=== PATIENT | female | born 1940 | race Caucasian/White ===

== ENCOUNTER 2017-09-14 10:58 | Inpatient (IN) | payer OTHER ==
[~2017-09-14] VITALS: Ht 149.9 cm; Wt 90.7 kg
--- NOTE | 2017-09-14 11:28 | ED DYSPNEA/ASTHMA COMPLAINT ---
See Addendum History of Present Illness General Chief Complaint: Dyspnea (COPD, CHF, Other) Stated Complaint: SOB,GENERAL WEAKNESS Source: patient, family (DAUGHTER) Exam Limitations: no limitations Vital Signs & Intake/Output Vital Signs & Intake/Output Vital Signs Date Time Temp Pulse Resp B/P B/P Pulse O2 O2 Flow FiO2 Mean Ox Delivery Rate 09/17 0620 99.8 103 18 156/90 96 Room Air 09/16 2214 99.5 94 18 138/60 95 Room Air 09/16 1021 70 142/58 ED Intake and Output 09/17 0000 09/16 1200 Intake Total 1000 1900 Output Total Balance 1000 1900 Intake, IV 400 Intake, Oral 1000 1500 Number 5 8 Bowel Movements Patient 185 lb 185 lb Weight Allergies Coded Allergies: shellfish derived (Intermediate, G.I. DISTRESS FROM SCALLOPS 09/14/17) Reconcile Medications Atorvastatin Calcium 40 MG TABLET 1 TAB PO DAILY CHOLESTROL (Reported) Empagliflozin (Jardiance) 10 MG TABLET 1 TAB PO EOD DM (Reported) Glimepiride 4 MG TABLET 1 TAB PO DAILY DM (Reported) Levothyroxine Sodium 25 MCG TABLET 1 TAB PO DAILY THYROID (Reported) Quinapril HCl 20 MG TABLET 1 TAB PO DAILY HTN (Reported) Sitagliptin Phos/Metformin HCl (Janumet 50-1,000 MG Tablet) 50 MG-1,000 MG TABLET 1 TAB PO BID DM (Reported) Triage Note: C/O SOB, WEAKNESS AND DIFFICULTY WALKING X 1 MONTH. DENIES PAIN. SENT BY DR. CHEN FOR EVALUATION. Triage Nurses Notes Reviewed? yes Onset: Gradual Duration: week(s): (1 MONTH), changing over time, continues in ED, getting worse Timing: recent history Severity: moderate, severe Activities at Onset: activity Prior Episodes/Possible Cause: no prior episodes Modifying Factors: Improves With: rest. Worsens With: movement. Associated Symptoms: weakness LMP (ages 10-50): post menopausal : No Patient currently breastfeeds: No HPI: 76-year-old female past medical history of diabetes hypothyroidism presents for evaluation of weakness, diarrhea, abdominal pain and shortness of breath. Patient states symptoms started about one month ago and have been persistent. She reports that she feels very short of breath on exertion and gets better with rest but does not go away completely. She also reports for a watery diarrhea decreased appetite. She has noted some pink material in her stools. No melena. No blood thinners. She reports that the left side of her abdomen appears swollen and tender. She denies any chest pain, hemoptysis, lower extremity edema. No fevers. (Roddy Murguia) Past History Travel History Traveled to [place] past 21 day No Medical History Any Pertinent Medical History? see below for history Cardiovascular: HEART MURMUR Endocrine: diabetes Surgical History Surgical History: non-contributory Psychosocial History Who do you live with Patient/Self Services at Home None What is your primary language Eritrean Tobacco Use: Never used ETOH Use: denies use Family History Hx Contributory? No (Roddy Murguia) Review of Systems Review of Systems Constitutional: Reports: malaise, weakness. EENTM: Reports: no symptoms. Respiratory: Reports: see HPI, short of breath. Cardiovascular: Reports: no symptoms. GI: Reports: see HPI, abdominal pain, diarrhea, nausea, bloody stool. Genitourinary: Reports: no symptoms. Musculoskeletal: Reports: no symptoms. Skin: Reports: no symptoms. Neurological/Psychological: Reports: no symptoms. Hematologic/Endocrine: Reports: no symptoms. Immunologic/Allergic: Reports: no symptoms. All Other Systems: Reviewed and Negative (Roddy Murguia) Physical Exam Physical Exam General Appearance: well developed/nourished, no apparent distress, alert, awake Head: atraumatic, normal appearance Eyes: Bilateral: normal appearance, PERRL, EOMI. Ears, Nose, Throat: normal pharynx, normal ENT inspection, hearing grossly normal Neck: normal inspection, supple, full range of motion, NO JVD Respiratory: normal breath sounds, chest non-tender, no respiratory distress, lungs clear Cardiovascular: regular rate/rhythm, normal peripheral pulses Peripheral Pulses: 2+ radial (R), 2+ radial (L) Gastrointestinal: normal bowel sounds, soft, no organomegaly, distention, tenderness (LLQ) Extremities: normal inspection, normal range of motion, no edema Neurologic/Psych: no motor/sensory deficits, awake, alert, oriented x 3, normal gait, normal mood/affect Skin: intact, normal color, warm/dry Lymphatic: no anterior cervical guille Core Measures ACS in differential dx? No CVA/TIA Diagnosis No Sepsis Present: No Sepsis Focused Exam Completed? No (Roddy Murguia) Progress Differential Diagnosis: asthma, AMI, bronchitis, CHF, COPD, pulmonary embolism, pneumonia, pneumothorax, rib fracture, DIVERTICULITIS, CHOLECYSTITIS, CHOLANGITIS Plan of Care: Orders Procedure Date/time Status CBC WITHOUT DIFFERENTIAL 09/17 06 Active BASIC ELECTROLYTES PLUS BUN&CR 09/17 0600 Active Nursing Misc 09/17 UNK Active Full Liquid Diet 09/16 D Active PATHOLOGY SPECIMEN 09/16 1055 Complete PT Evaluate & Treat 09/16 UNK Active Therapeutic Activities 09/16 UNK Complete PT EVAL LOW COMPLEX 20 MIN 09/16 UNK Complete Lab Add-on Test 09/16 UNK Active MISSING MEDICATION FORM 09/16 UNK Active Current Medications Sig/Rose Start time Last Medication Dose Stop Time Status Admin Levothyroxine Sodium 0.025 MG DAILY 09/15 1000 AC 09/16 (Synthroid) 1021 Lisinopril 5 MG DAILY 09/15 1000 AC 09/16 (Prinivil) 1021 Insulin Aspart 0 TIDAC 09/15 0800 AC 09/16 (NovoLOG) 1756 Heparin Sodium 5,000 UNIT Q8 09/14 2200 AC 09/17 (Porcine) 0539 Sodium Chloride 1,000 ML Q20H 09/14 2045 AC 09/16 (Normal Saline 0.9%) 1311 Laboratory Tests 09/17/17 0655: Sodium Pending, Potassium Pending, Chloride Pending, Carbon Dioxide Pending, Anion Gap Pending, BUN Pending, Creatinine Pending, BUN/Creatinine Ratio Pending , CBC w Diff Pending, WBC Pending, RBC Pending, Hgb Pending, Hct Pending, MCV Pending, MCH Pending, MCHC Pending, RDW Pending, Plt Count Pending, MPV Pending Patient seen and evaluated. She currently is tachycardic to the 1 teens. Blood pressure is stable. She has some left lower quadrant tenderness and distention on exam. She reports some occasional bloody diarrhea and shortness of breath on exertion. EKG shows sinus tachycardia. Blood work was obtained and shows an elevated white blood cell count of lactic acidosis. Her d-dimer is also elevated. CHEST x-ray showed signs of multiple lung nodules. A CTA of the chest abdomen and pelvis was ordered. Patient will likely require admission. Fluids ordered. Patient declines any pain medicine at this time. CTA of the chest abdomen and pelvis shows diffuse metastatic lesions in the bilateral lungs and liver. The source is unclear however suspect colorectal etiology due to microcytic anemia. Patient has never had a colonoscopy. At this point there is not a source of infection the only thing we have left is a urinalysis which is pending. Ultrasound is negative for DVT. Patient will require admission to the hospital for further evaluation and treatment of leukocytosis and lactic acidosis. She also need to see oncology. She is very weak and unable to eat or drink. Premature discharge will result in poor health. She will not do well as an outpatient. She will require IV fluids, serial labs, oncology consult, GI consult, colonoscopy physical therapy and case management. Case discussed with Dr. Burks she agrees. Patient admitted to general medicine. Diagnostic Imaging: Viewed by Me: Radiology Read, CT Scan. Discussed w/RAD: Radiology Read, CT Scan. Radiology Impression: PATIENT: MOHAMUD KUMARI PRESENT AGE: 76 PATIENT ACCOUNT NO: [id number] : 42 LOCATION: [facility] ORDERING PHYSICIAN: Roddy RACHEL SERVICE DATE: 09/14/17 EXAM TYPE: RAD - XRY-PORTABLE CHEST XRAY XR PORTABLE CHEST CLINICAL INFORMATION: Shortness of breath and weakness. COMPARISON: Chest x-ray 12/05/2010. TECHNIQUE: Portable frontal view of the chest was obtained. FINDINGS: There is a new 1.8 cm nodule within the right lung at the level of the right eighth rib and there are multiple smaller nodules just above this dominant nodule within the right lung measuring up to 1.3 cm in size. There are multiple new nodules within the left lung, the largest measuring up to 1.9 cm at the level of the left posterior fifth and sixth ribs. The lungs are otherwise clear. There is no pneumothorax or pleural effusion. Cardiac silhouette size is normal. There are no acute osseous findings. IMPRESSION: Multiple large pulmonary nodules bilaterally for which a contrast enhanced CT of the chest is recommended for further assessment. DICTATED BY: Shan Diez MD DATE/TIME DICTATED:09/14/171209 NETWORK PROJECT MANAGER:ENMANUEL DATE/TIME TRANSCRIBED:09/14/171209 CONFIDENTIAL, DO NOT COPY WITHOUT APPROPRIATE AUTHORIZATION., PATIENT: MOHAMUD KUMARI PRESENT AGE: 76 PATIENT ACCOUNT NO: [id number] : LOCATION: [facility] ORDERING PHYSICIAN: Roddy RACHEL SERVICE DATE: EXAM TYPE: US - US-DUPLEX VENOUS EXTREM UNI EXAMINATION: US TRIPLEX LOWER EXTREMITY, LEFT CLINICAL INFORMATION: 76-year-old female patient with left lower extremity swelling. COMPARISON: None TECHNIQUE: Color-flow triplex imaging with spectral analysis and compression Doppler were performed on the lower extremity. FINDINGS: Respiratory variation, normal compression and augmented flow are noted throughout the lower extremity. The visualized common femoral vein, superficial femoral vein, profunda femoral vein, popliteal vein and midcalf peroneal and posterior tibial venous segments show no evidence of deep venous thrombosis. A very small popliteal cyst measures 1.3 x 0.8 x 1.0 cm. IMPRESSION: Normal triplex scan without evidence of deep venous thrombosis involving the lower extremity. Very small popliteal cyst. DICTATED BY: Edgar Aguilar MD DATE/TIME DICTATED:09/14/171609 NETWORK PROJECT MANAGER:ENMANUEL DATE/ TIME TRANSCRIBED:09/14/171609 CONFIDENTIAL, DO NOT COPY WITHOUT APPROPRIATE AUTHORIZATION. <Electronically signed in Other Vendor System> SIGNED BY: Edgar Aguilar MD 09/14/17 1619 Initial ED EKG: nonspecific ST T wave chg, SINUS TACH RATE 120 (Roddy Murguia) Departure Departure Disposition: STILL A PATIENT Condition: Stable Clinical Impression Primary Impression: Multiple lesions of metastatic malignancy Secondary Impressions: Lactic acidosis Leukocytosis Qualifiers: Leukocytosis type: unspecified Qualified Code: D72.829 - Elevated white blood cell count, unspecified Referrals: Yamilet Mobley APRN (PCP/Family) Departure Forms: Customer Survey General Discharge Information Admission Note Spoke With: Keri Onofre MD Documentation of Exam: Documentation of any treatments & extenuating circumstances including Concerns Regarding Discharge (functional status, medication knowledge or non-compliance, living conditions, etc.) that warrant an admission rather than observation: [ IV fluids, serial labs, oncology consult, GI consult, colonoscopy physical therapy and case management] (Roddy Murguia) PA/PLASTIC FINISHER Co-Sign Statement Statement: ED Attending supervision documentation- [X] I saw and evaluated the patient. I have also reviewed all the pertinent lab results and diagnostic results. I agree with the findings and the plan of care as documented in the PA's/PLASTIC FINISHER's documentation. [X] I have reviewed the ED Record and agree with the PA's/PLASTIC FINISHER's documentation. [] Additions or exceptions (if any) to the PAs/PLASTIC FINISHER's note and plan are summarized below: [] (Vitaliy ALBARADO,Johanna) Critical Care Note Critical Care Note Critical Care Time: non-applicable (John RACHEL,Roddy)
[2017-09-14 11:34] LABS: ABSOLUTE BASOPHIL COUNT 0 /CUMM (0.0-0.2); ABSOLUTE EOSINOPHIL COUNT 0 /CUMM (0.0-0.7); ABSOLUTE GRANULOCYTE CT 14.7 /CUMM (1.4-6.5); ABSOLUTE LYMPH COUNT 2.5 /CUMM (1.2-3.4); ABSOLUTE MONOCYTE COUNT 1.2 /CUMM (0.10-0.60); BASOPHIL % 0.1 % (0.0-2.0); EOSINOPHIL % 0.1 % (0-5); GRANULOCYTE % 79.9 % (42.2-75.2); HEMATOCRIT 30.8 % (37-47); MEAN CORPUSCULAR HGB 22.7 PG (27.0-31.0); MEAN CORPUSCULAR HGB CONC 31.4 G/DL (33.0-37.0); MEAN CORPUSCULAR VOLUME 72.2 FL (81.0-99.0); MEAN PLATELET VOLUME 6.6 FL (7.4-10.4); PLATELET COUNT 504 /CUMM (130-400); RBC DISTRIBUTION WIDTH 20.6 % (11.5-14.5); RED BLOOD CELL CT 4.26 /CUMM (4.20-5.40); WHITE BLOOD CELL COUNT 18.4 /CUMM (4.8-10.8)
[2017-09-14] MEDS ORDERED: LEVOTHYROXINE25 MCG PO (11:43)
[2017-09-14] MEDS ORDERED: ATORVASTATIN CA40 M1 PO (11:43)
[2017-09-14] MEDS ORDERED: JANUMET 50-1,01 EACH PO (11:43)
[2017-09-14] MEDS ORDERED: GLIMEPIRIDE4 M1 PO (11:43)
[2017-09-14] MEDS ORDERED: QUINAPRIL HCL20 M1 PO (11:43)
[2017-09-14] MEDS ORDERED: JARDIANCE10 M1 PO (11:45)
[2017-09-14 11:48] LABS: PT 15.8 SEC (9.4-12.5); PTT 28 SEC (25-37)
--- NOTE | 2017-09-14 12:16 | RADIOLOGY REPORT ---
XR PORTABLE CHEST CLINICAL INFORMATION: Shortness of breath and weakness. COMPARISON: Chest x-ray 12/05/2010. TECHNIQUE: Portable frontal view of the chest was obtained. FINDINGS: There is a new 1.8 cm nodule within the right lung at the level of the right eighth rib and there are multiple smaller nodules just above this dominant nodule within the right lung measuring up to 1.3 cm in size. There are multiple new nodules within the left lung, the largest measuring up to 1.9 cm at the level of the left posterior fifth and sixth ribs. The lungs are otherwise clear. There is no pneumothorax or pleural effusion. Cardiac silhouette size is normal. There are no acute osseous findings. IMPRESSION: Multiple large pulmonary nodules bilaterally for which a contrast enhanced CT of the chest is recommended for further assessment.
--- NOTE | 2017-09-14 16:15 | ULTRASOUND REPORT ---
EXAMINATION: US TRIPLEX LOWER EXTREMITY, LEFT CLINICAL INFORMATION: 76-year-old female patient with left lower extremity swelling. COMPARISON: None TECHNIQUE: Color-flow triplex imaging with spectral analysis and compression Doppler were performed on the lower extremity. FINDINGS: Respiratory variation, normal compression and augmented flow are noted throughout the lower extremity. The visualized common femoral vein, superficial femoral vein, profunda femoral vein, popliteal vein and midcalf peroneal and posterior tibial venous segments show no evidence of deep venous thrombosis. A very small popliteal cyst measures 1.3 x 0.8 x 1.0 cm. IMPRESSION: Normal triplex scan without evidence of deep venous thrombosis involving the lower extremity. Very small popliteal cyst.
--- NOTE | 2017-09-14 17:06 | History & Physical ---
See Addendum Flaquita He MD 09/14/17 5874: General Information and HPI MD Statement: I have seen and personally examined MOHAMUD KUMARI and documented this H& P. The patient is a 76 year old F who presented with a patient stated chief complaint of [generalized weakness]. Source of Information: patient Exam Limitations: no limitations History of Present Illness: 76-year-old female with past medical history of hypertension, hypothyroidism, diabetes, coronary artery disease status post stent in 2006 came with shortness of breath, weakness and difficulty in walking for the past 1 month she was sent to ER by Dr. donahue. Patient was in her usual state of health until a month ago following which she started developing generalized weakness, shortness of breath [for past 2 months], decreased appetite, frequent loose bowel movements with on and off constipation and pink mucous discharge. Patient not able to walk even 1 flight gets shortness of breath easily event during eating. She feels that her shortness of breath gets better when she lies on her left lateral decubitus position. No history of any orthopnea/platypnea/paroxysmal nocturnal nocturnal dyspnea. Patient says that she lost 30-40 pounds in 8-9 months. She didn't receive any medical attention for the same. She was also feeling increased sleepy during the same time. She also at times has bowel incontinence which has been going on for a while. She denies back pain, chest pain, chest pressure, palpitation, weakness, numbness, tingling sensation, sick contacts, fall, loss of consciousness, Nausea, vomiting, dysuria, bladder incontinence, headache, dizziness. Patient lives alone at home and independent at baseline. She never had colonoscopy/EGD in the past. She saw her clarifier operator Dr. Olivarez 4 years ago. Allergies/Medications Allergies: Coded Allergies: shellfish derived (Intermediate, G.I. DISTRESS FROM [place] 09/14/17) Home Med list Atorvastatin Calcium 40 MG TABLET 1 TAB PO DAILY CHOLESTROL (Reported) Empagliflozin (Jardiance) 10 MG TABLET 1 TAB PO EOD DM (Reported) Glimepiride 4 MG TABLET 1 TAB PO DAILY DM (Reported) Levothyroxine Sodium 25 MCG TABLET 1 TAB PO DAILY THYROID (Reported) Quinapril HCl 20 MG TABLET 1 TAB PO DAILY HTN (Reported) Sitagliptin Phos/Metformin HCl (Janumet 50-1,000 MG Tablet) 50 MG-1,000 MG TABLET 1 TAB PO BID DM (Reported) Compliance With Home Meds: GOOD Past History Travel History Traveled to [place] past 21 day No Medical History Cardiovascular: HEART MURMUR Endocrine: diabetes Surgical History Surgical History: non-contributory ECHO Results (as available) EF% 65 Past Family/Social History Family History Relations & Conditions if any FATHER Relation not specified for: FH: heart disease Psychosocial History Where do you live? Home Who Do You Live With? self Services at Home: None Primary Language: Sudanese Smoking Status: Former Smoker ETOH Use: denies use Functional Ability ADLs Independent: dressing, eating, toileting, bathing. Ambulation: independent IADLs Independent: shopping, housework, finances, telephone, medication admin. Review of Systems Review of Systems Constitutional: Reports: weakness. Cardiovascular: Reports: no symptoms. Respiratory: Reports: short of breath. GI: Reports: bloating, constipation, bloody stool, changes in stool. Genitourinary: Reports: no symptoms. Musculoskeletal: Reports: no symptoms. Skin: Reports: no symptoms. Neurological/Psychological: Reports: no symptoms. Hematologic/Endocrine: Reports: no symptoms. Exam & Diagnostic Data Last 24 Hrs of Vital Signs/I&O Vital Signs Date Time Temp Pulse Resp B/P B/P Pulse O2 O2 Flow FiO2 Mean Ox Delivery Rate 09/14 1932 98.8 101 18 122/60 96 09/14 1737 99.1 95 20 189/84 98 Room Air 09/14 1451 97.6 102 18 166/74 97 Room Air 09/14 1137 96 Room Air 09/14 1109 97.6 116 20 134/76 96 Room Air Intake & Output 09/14 1600 09/14 0800 09/14 0000 Intake Total 1100 Output Total 2 Balance 1098 Intake, IV 1100 Output, Stool 1 Output, Urine 1 Patient 150 lb Weight Weight Reported by Patient Measurement Method Physical Exam General Appearance Alert, Oriented X3, Cooperative, No Acute Distress Skin No Rashes, No Breakdown HEENT Atraumatic, PERRLA Neck Supple, No JVD, No thryomegaly Cardiovascular Regular Rate, Normal S1, Normal S2, No Murmurs Lungs Clear to Auscultation Abdomen Soft, No Tenderness Neurological Normal Speech, Strength at 5/5 X4 Ext, Normal Tone, Sensation Intact Extremities No Edema Vascular Normal Pulses Rectal Guiac Negative, rectal tone intact Last 24 Hrs of Labs/Tha: Laboratory Tests 09/14/17 1707: Lactic Acid 1.9 09/14/17 1631: Urine Color YEL, Urine Clarity HAZY H, Urine pH 6.0, Ur Specific [place] <= 1.005, Urine Protein NEG, Urine Ketones NEG, Urine Nitrite NEG, Urine Bilirubin NEG, Urine Urobilinogen 2.0 H, Ur Leukocyte Esterase SMALL H, Ur Microscopic SEDIMENT EXAMINED, Urine RBC 3-5, Urine WBC 5-10 H, Ur Epithelial Cells FEW, Urine Bacteria MANY H, Urine Mucus RARE, Urine Hemoglobin MOD H, Urine Glucose NEG 09/14/17 1122: Anion Gap 13, Estimated GFR > 60, BUN/Creatinine Ratio 22.0, Glucose 196 H, Lactic Acid 4.2 H, Calcium 9.0, Magnesium 1.4 L, Total Bilirubin 1.2, AST 66 H, ALT 25, Alkaline Phosphatase 398 H, Troponin I < 0.01, Total Protein 5.3 L, Albumin 2.6 L, Globulin 2.7, Albumin/Globulin Ratio 1.0 L, TSH &T3 &Free T4 Intrp 2.400, PT 15.8 H, INR 1.44 H, APTT 28, D-Dimer High Sensitivty 1607 H, CBC w Diff MAN DIFF ORDERED, RBC 4.26, MCV 72.2 L, MCH 22.7 L, MCHC 31.4 L, RDW 20.6 H, MPV 6.6 L, Gran % 79.9 H, Lymphocytes % 13.4 L, Monocytes % 6.5, Eosinophils % 0.1, Basophils % 0.1, Absolute Granulocytes 14.7 H, Absolute Lymphocytes 2.5, Absolute Monocytes 1.2 H, Absolute Eosinophils 0, Absolute Basophils 0, Platelet Estimate INCREASED, Hypochromic-Microcytic 2+, Poikilocytosis 2+, Anisocytosis 2+, Microcytic Cells 1+, Ovalocytes 1+, Elliptocytes 1+ Diagnostic Data EKG Results Sinus rhythm heart rate 120 QTC 4:30 normal axis. CXR Results Multiple large pulmonary nodules bilaterally for which a contrast enhanced CT of the chest is recommended for further assessment. Other Results CT abdomen and pelvis 1. No evidence of pneumonia. Numerous, diffuse pulmonary nodules consistent with metastatic disease. 2. No evidence of mediastinal or hilar adenopathy. 3. No evidence of pulmonary embolic disease. 4. Diffuse liver metastases. 5. No evidence of mesenteric ischemia, pneumoperitoneum, or intestinal obstruction. 6. No evidence of active diverticulitis. 7. Trace ascites in the perihepatic space and upper pelvis. 8. Extensive obstipation. An underlying colonic mass cannot be excluded especially in the absence of oral contrast. Colonoscopy may be appropriate to exclude a colonic mass giving the pattern of disease. 9. No evidence of adenopathy in the abdomen and pelvis. 10. Cholelithiasis without evidence cholecystitis 11. Multiple stones in the mid left ureter with proximal hydroureter and hydronephrosis. Nonobstructing calculi in a left lower pole calyx. 12. No adrenal or osseous metastases. Lower Extremity Doppler Normal triplex scan without evidence of deep venous thrombosis involving the lower extremity. Very small popliteal cyst. Assessment/Plan Assessment: 76-year-old female past medical history of diabetes, coronary artery disease status post stent in 2006, hypothyroidism, hypertension, urolithiasis presents for evaluation of weakness, altered bowel habits, shortness of breath. Patient is admitted to general medical floor for further evaluation and management. Admission vitals Temperature 97.6 pulse rate, 116, respiratory rate 20, blood pressure 134/76, 96 on room air. Admission lab W BC 18.4, hemoglobin 9.7, platelet count 504, sodium 132, potassium 3.7, BUNs 11, creatinine 0.5, lactic acid 4.2, calcium 9, magnesium 1.4, AST 66, ALT 25, albumin 2.6, TSH 2.4 Imaging Chest x-ray Multiple large pulmonary nodules bilaterally for which a contrast enhanced CT of the chest is recommended for further assessment. Doppler ultrasound Normal triplex scan without evidence of deep venous thrombosis involving the lower extremity. Very small popliteal cyst. Echocardiogram 2010 ejection fraction 60-65% ED treatment Normal saline bolus thousand ML 1 Problem list-Tachycardia, leukocytosis, anemia, pulmonary nodule, hyponatremia, lactic acidosis, hypomagnesemia. 1.Generalized weakness: Metastatic carcinoma of unknown primary origin - May be CUP Patient came in with generalized weakness, upon admission, she was tachycardic, hyponatremia/hypomagnesemia, lactic acidosis which corrected upon IV fluids, chronic microcytic anemia. Her lactic acidosis can be secondary due to dehydration given her poor by mouth intake. Patient has history of weight loss , decreased appetite with generalized weakness, altered bowel habits with shortness of breath for the past 2 months and CAT scan finding of liver and pulmonary metastases with unknown primary at present which needs further evaluation by gastroenterology [colonoscopy/EGD] and oncology in a.m. Though patient has leukocytosis there is no obvious source of infection. We will follow her off antibiotics. Her leukocytosis can be reactive. Patient is not aware of for pulmonary/liver nodules. Patient doesn't have any back pain nor any back tenderness highly unlikely for any bone metastasis. Her rectal tone intact. Bilateral breast no mass/no axillary lymphadenopathy/inguinal/cervical. Though searching for a primary site helps in treatment if patient has favorable prognosis, extensive workup for occult primary site does not improve outcome. Measuring CA 19-9, CA 15-3, CEA 125 RARELY [address]. We will place gastroenterology and oncology consult in a.m. to guide us with the treatment. Patient has electrolyte abnormalities secondary to poor by mouth intake and altered bowel movements. We will replace electrolytes as needed. Diabetes- NovoLog sliding scale insulin and Accu-Chek. Patient is on clear liquids in view of possible colonoscopy tomorrow. Patient appears depressed if needed we can involve psychiatry in future. Patient had venous lower extremity ultrasound to rule out DVT of her left leg, which was negative. Code-FULL code Diet-clear liquids DVT prophylaxis-heparin subcutaneous As Ranked By This Provider Problem List: 1. Carcinoma of unknown origin 2. Lactic acidosis 3. Diabetes mellitus 4. CAD S/P STENT Core Measures/Misc (03/13) Acute Coronary Syndrome ACS Diagnosis: No Congestive Heart Failure Congestive Heart Failure Diagnosis No Cerebrovascular Accident CVA/TIA Diagnosis: No VTE (View Protocol) VTE Risk Factors Age>40 No Mechanical VTE Prophylaxis d/t Other No VTE Pharm Prophylaxis d/t Other Sepsis (View protocol) Sepsis Present: No Emelina Chambers MD 09/14/17 1716: Resident Review Statement Resident Statement: examined this patient, discussed with internet sales manager, agreed with internet sales manager, discussed with family Other Findings: Imaging patient is a 76-year-old female presented with chief complaints of shortness of breath, difficulty in walking and generalized weakness since one month. She was sent to [facility] by Dr. donahue for further evaluation and management. Patient is a 76-year-old female past medical history including coronary artery disease status post angioplasty 2000, hypertension, hyperlipidemia, type 2 diabetes, hypothyroidism, history of bladder calculus presented with chief complaints of generalized weakness and shortness of breath since last 2 months and loose stool since last 2 weeks. She did not follow with her PCP since 2 years and also she was noncompliant with her medication. She lives alone and do all daily activity but cannot able to walk up and down stairs and stand for the long-term because of the weakness in the legs. She started having diarrhea since last 2 weeks and sometimes had episodes of incontinence and staining of her clothes. She was also complaining loss of appetite and also feels fullness of her belly, after she ate something. She denies any nausea, difficulty swallowing, fever, chills, chest pain, palpitation. Past medical history - * CAD status post angioplasty in 2000 * Hypertension * hyperlipidemia * Type 2 diabetes * Hypothyroidism -nontoxic multinodular goiter * History of bladder calculus ED course - Vital signs -temperature 97.6, pulse 116, respiratory rate 20, blood pressure pressure 134/76, SPO2 96% on room air. On physical exam -she was conscious, cooperative, was very weak, tired, pale, neck -no JVD, no lymphadenopathy, chest bilateral clear, heart S1-S2 normal, murmur present, abdomen distended, hepatomegaly present, left lower quadrant mass palpable? On rectal exam rectal tone was low, left lower extremity - swelling in the calf. EKG -normal sinus rhythm, heart rate of 120, QTc 430 Blood workup showed -WBC 18.4, hemoglobin 9.7, hematocrit 30.8, platelet count 504, granulocyte 79.9, no band cells, sodium 132, potassium 3.7, chloride 92, anion gap 13, BUN 11, creatinine 0.5, glucose 196, lactic acid 4.2, calcium 9.0, magnesium 1.4, AST 66, ALT 25, alkaline phosphatase 398, troponin less than 0.01 , total protein 5.3, albumin 2.6, globulin 2.7, TSH 2.4, PT/INR 15.8/1.44, APTT 28, d-dimer 1607, urinalysis showed WBC 5-10. Color Doppler for DVT -no evidence of DVT, Chest x-ray -multiple large pulmonary nodule bilaterally for which contrast- enhanced CT scan is recommended. She was given IV fluids Echocardiogram 2010 -ejection fraction 60-65, aortic stenosis, dilated left atrium, mild calcific aortic stenosis. Assessment and plan - Multiple metastasis in the chest and the liver - Unknown primary Patient is having leukocytosis, thrombocytosis, lactic acidosis, high alkaline phosphatase, hypoalbuminemia and on the workup she found to have, multiple metastasis, secondary to unknown primary. * We will place consult for the GI and hematology oncologist * Patient may get possible colonoscopy tomorrow so start her on clear liquid diet. * We will keep a low threshold for the antibiotic Hyponatremia,Hypomagnesemia - * We will watch for regular blood workup * Injection magnesium 1 g IV state * We will recheck the magnesium tomorrow. Tachycardia - * Possibly secondary to the demand or metastasis to the lung Chronic medical condition -multinodular goiter, hypertension, type 2 diabetes - * We will continue levothyroxine, lisinopril * Fingerstick 4 times daily/HS * NovoLog according to the sliding scale Left lower extremity swelling -d-dimer 1607, Doppler -negative for DVT - Ruled out Diet -clear liquid diet for possible colonoscopy tomorrow DVT prophylaxis -heparin 5000 subcutaneous every 8 hours CODE STATUS -full code Keri Onofre MD 09/14/17 1722: Attending MD Review Statement Attending Statement Attending MD Statement: examined this patient, discuss w/resident/PA/CLOTH SECONDS SORTER, agreed w/resident/PA/CLOTH SECONDS SORTER, reviewed EMR data (avail), reviewed images Attending Assessment/Plan: 76-year-old female past medical history of diabetes and hypertension who came in with complaints of weakness, poor by mouth intake and was found to have leukocytosis and lactic acidosis. CT of chest abdomen and pelvis shows metastases to the lungs and liver primary unknown but given this microcytic anemia could be GI primary. Patient has left leg swelling but left leg ultrasound is negative for DVT. ED provider did tell patient of diagnosis and she's aware that she has metastatic disease of unknown primary. She is interested in seeing what oncology has to say. At this point will give her IV fluids, repeat her lactate. Will hold off on antibiotics given no obvious source of infection. Rectal done in the ER and guaiac negative but as stated about does have microcytic anemia. Will hold off on the oral hypoglycemics given the lactic acidosis and use insulin with sliding scale, we can continue the quinapril as long as the blood pressure tolerates and continue her levothyroxine. Put her on DVT prophylaxis.
--- NOTE | 2017-09-14 17:24 | CT SCAN REPORT ---
EXAMINATION: CT ANGIOGRAM OF THE CHEST, ABDOMEN AND PELVIS CLINICAL INFORMATION: 76-year-old patient presenting with shortness of breath, left lateral lower quadrant pain, diarrhea, abdominal distention, and leg weakness. COMPARISON: CT of the abdomen pelvis dated 12/28/2011. TECHNIQUE: Multiple axial images were obtained helically through the chest, abdomen and pelvis following the administration of 95 mL of Optiray 320 intravenously. No oral contrast was administered. Extensive vascular post-processing, including 2-dimensional and 3-dimensional reformatted images were created and reviewed on an independent workstation. FINDINGS: Vascular: The thoracic aorta is normal in caliber without evidence of a dissection flap or penetrating ulcer. There is standard conventional 3 vessel arch branching anatomy. The arch vessels are widely patent. The pulmonary arteries are well-opacified. No intraluminal filling defect or cut off is seen to suggest pulmonary embolic disease. The abdominal aorta and iliac arteries also normal in caliber without evidence of a dissection flap. The visceral arteries are patent. There are single renal arteries present bilaterally which are patent. Nonvascular: Numerous ovoid masses are seen diffusely in both lungs ranging in size from 3.5 mm to 1.5 cm consistent with metastatic disease. No pulmonary infiltrates or vascular congestive changes are identified. There is some scattered bullous changes without evidence of emphysema. The tracheobronchial tree is patent. The visualized thyroid gland is unremarkable. There is no evidence of mediastinal or hilar adenopathy. The heart is not enlarged. There is no pericardial or pleural effusion. No supraclavicular or axillary adenopathy seen. There is no evidence of a chest wall mass. The liver is enlarged with numerous ovoid low-attenuation lesions in both lobes consistent with metastatic deposits. There is no dilatation of the biliary ducts. There are multiple small stones in the dependent portion of the gallbladder without evidence of gallbladder wall thickening. There is trace ascites along the inferior margin of the right lobe liver. The adrenal glands are normal in configuration bilaterally. No pancreatic mass, ductal ectasia, inflammatory changes are seen. The spleen is somewhat prominent measuring 13.2 cm in span without evidence of a parenchymal lesion. Both kidneys are normal in size and contour with appropriate enhancement. There is moderate left hydronephrosis and proximal hydroureter. There are several parapelvic cysts on the left side. There are 3 nonobstructing calculi are noted in a left lower pole calyx measuring 5.5, 5, and 7 mm respectively.. There are 3 obstructing tandem calculi in the mid left ureter measuring 6 mm, 4.5 mm, and 8 mm respectively. There is extensive stool throughout the colon without evidence of a discrete mass, dilatation, or wall thickening. There is no evidence of diverticulosis or diverticulitis. There is a normal appendix in the right lower quadrant. There is no dilatation of the small bowel. No mesenteric cake or peritoneal studding is identified. A small amount of fluid is present in the lower abdominal cavity in the region of the uterine fundus. The uterus is anteflexed without evidence of a discrete mass. No pelvic mass is identified. No mesenteric, retroperitoneal, pelvic, or inguinal adenopathy is identified. No abdominal hernia is seen. There is some induration of the skin and stranding of the subcutaneous fat in the lower anterior abdominal wall. 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 No focal osteolytic or osteoblastic changes are appreciated. IMPRESSION: 1. No evidence of pneumonia. Numerous, diffuse pulmonary nodules consistent with metastatic disease. 2. No evidence of mediastinal or hilar adenopathy. 3. No evidence of pulmonary embolic disease. 4. Diffuse liver metastases. 5. No evidence of mesenteric ischemia, pneumoperitoneum, or intestinal obstruction. 6. No evidence of active diverticulitis. 7. Trace ascites in the perihepatic space and upper pelvis. 8. Extensive obstipation. An underlying colonic mass cannot be excluded especially in the absence of oral contrast. Colonoscopy may be appropriate to exclude a colonic mass giving the pattern of disease. 9. No evidence of adenopathy in the abdomen and pelvis. 10. Cholelithiasis without evidence cholecystitis 11. Multiple stones in the mid left ureter with proximal hydroureter and hydronephrosis. Nonobstructing calculi in a left lower pole calyx. 12. No adrenal or osseous metastases.
[2017-09-14 19:32] VITALS: BP 122/60
[2017-09-14 21:26] VITALS: BP 122/60
[2017-09-15 06:25] VITALS: BP 140/64
--- NOTE | 2017-09-15 07:02 | PN- Housestaff ---
Neri ALBARADO,Flaquita 09/15/17 0702: Subjective Follow-up For: Liver and pulmonary metastasis Complaints: weakness Subjective: Patient seen and examined at bedside. She was sitting in her bed comfortably saturating at room air. No overnight events. She complains of weakness. She denies nausea, vomiting, abdominal pain, chest pain, shortness of breath. She is anxious about the further management with colonoscopy Review of Systems Constitutional: Reports: see HPI. Objective Last 24 Hrs of Vital Signs/I&O Vital Signs Date Time Temp Pulse Resp B/P B/P Pulse O2 O2 Flow FiO2 Mean Ox Delivery Rate 09/15 0952 88 138/60 09/15 0625 98.8 89 20 140/64 95 Room Air 09/14 2126 98.8 101 18 122/60 96 09/140 Room Air 09/14 1932 98.8 101 18 122/60 96 09/14 1737 99.1 95 20 189/84 98 Room Air Intake & Output 09/15 1600 09/15 0800 09/15 0000 Intake Total 240 400 390 Output Total 300 251 Balance -60 149 390 Intake, IV 400 150 Intake, Oral 240 240 Number 1 2 2 Bowel Movements Output, Stool 1 Output, Urine 300 250 Patient 187 lb 187 lb Weight Weight Bed scale Measurement Method Physical Exam General Appearance: Alert, Oriented X3, Cooperative, No Acute Distress Skin: No Rashes, No Breakdown Cardiovascular: Regular Rate, Normal S1, Normal S2, No Murmurs Lungs: Clear to Auscultation Abdomen: Soft, No Tenderness Neurological: Normal Speech, Strength at 5/5 X4 Ext, Normal Tone, Sensation Intact Extremities: No Cyanosis, Normal Pulses, bilateral mild pedal edema. Current Medications: Current Medications Sig/Rose Start time Last Medication Dose Route Stop Time Status Admin Bisacodyl 10 MG ONCE ONE 09/15 2100 AC PO 09/15 2100 Bisacodyl 5 MG ONE ONE 09/15 2100 CAN PO 09/15 2100 Bupivacaine HCl 0 .STK-MED ONE 09/15 1408 DC .ROUTE Fentanyl Citrate 0 .STK-MED ONE 09/15 140 DC .ROUTE Heparin Sodium 5,000 UNIT Q8 09/14 2200 AC 09/15 (Porcine) SC 0608 Insulin Aspart 0 TIDAC 09/15 0800 AC SC Levothyroxine Sodium 0.025 MG DAILY 09/15 1000 AC 09/15 PO 0952 Lisinopril 5 MG DAILY 09/15 1000 AC 09/15 PO 0952 Magnesium Sulfate 1 GM ONCE ONE 09/14 2030 DC 09/14 Dextrose/Water 100 ML IV 09/15 0029 2044 Patient Medication 1 ED ONE ONE 09/15 1200 DC Teaching ED 09/15 1201 Polyethylene Glycol 0.5 GAL ONCE ONE 09/16 0400 AC PO 09/16 0401 Polyethylene Glycol 0.5 GAL ONCE ONE 09/15 1700 AC PO 09/15 1701 Sodium Chloride 1,000 ML Q20H 09/14 2045 AC 09/14 IV 204 Sodium Chloride 1,000 ML BOLUS ONE 09/14 1700 DC 09/14 IV 09/14 1759 1720 Last 24 Hrs of Lab/Tha Results Last 24 Hrs of Labs/Mics: Laboratory Tests 09/15/17 0745: Anion Gap 9, Estimated GFR > 60, BUN/Creatinine Ratio 18.0, Magnesium 1.5 L, CBC w Diff NO MAN DIFF REQ, RBC 3.60 L, MCV 73.0 L, MCH 22.9 L, MCHC 31.4 L, RDW 20.5 H, MPV 6.9 L, Gran % 78.8 H, Lymphocytes % 10.4 L, Monocytes % 10.4 H, Eosinophils % 0.2, Basophils % 0.2, Absolute Granulocytes 12.8 H, Absolute Lymphocytes 1.7, Absolute Monocytes 1.7 H, Absolute Eosinophils 0, Absolute Basophils 0 09/14/17 1707: Lactic Acid 1.9 09/14/17 1631: Urine Color YEL, Urine Clarity HAZY H, Urine pH 6.0, Ur Specific [place] <= 1.005, Urine Protein NEG, Urine Ketones NEG, Urine Nitrite NEG, Urine Bilirubin NEG, Urine Urobilinogen 2.0 H, Ur Leukocyte Esterase SMALL H, Ur Microscopic SEDIMENT EXAMINED, Urine RBC 3-5, Urine WBC 5-10 H, Ur Epithelial Cells FEW, Urine Bacteria MANY H, Urine Mucus RARE, Urine Hemoglobin MOD H, Urine Glucose NEG Assessment/Plan Assessment: Assessment and plan - 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 Patient has multiple metastasis to liver and lung. Patient was seen by oncologist who suggested a liver biopsy and colonoscopy to look for primary. GI consult placed. Patient has electrolyte abnormalities due secondary due to dehydration and decreased by mouth intake. We will replete lites as needed. Patient is planned for liver biopsy today. Patient is on clear liquids and will get GoLYTELY today. She is plan for colonoscopy tomorrow. Both the patient and daughter has agreed with the plan. Chronic medical condition -multinodular goiter, hypertension, type 2 diabetes - * We will continue levothyroxine, lisinopril, Fingerstick 4 times daily/HS * NovoLog according to the sliding scale. Diet -clear liquid diet for colonoscopy tomorrow DVT prophylaxis -heparin 5000 subcutaneous every 8 hours CODE STATUS -full code Problem List: 1. Liver mass 2. Pulmonary nodule Pain Ratin Pain Location: none Pain Goal: Remain pain free Pain Plan: tylenol Tomorrow's Labs & Rationales: cbc,bep Roya Conde 09/15/17 1206: Attending MD Review Statement Attending Statement Attending MD Statement: examined this patient, discuss w/resident/PA/HOTEL SERVICE SUPERVISOR, agreed w/resident/PA/HOTEL SERVICE SUPERVISOR, discussed with family, reviewed EMR data (avail), discussed with nursing, discussed with case mgmt, reviewed images, amended to note Attending Assessment/Plan: 76 o/f is admitted with abnornal nodules in liver and lung with h/o weight loss and loss of appetitie concerning for metastatic disease. Hem/onc and GI consulted. Plan for EGD/colonoscopy tommorrow (never had past). Npo past mn. Prep for colon as per GI. Oncology did recommend IR guided biopsy from liver tissue of unknown primary. Patient and family bedside. Plan of care d/wed patient and family member. Agree to management.
--- NOTE | 2017-09-15 08:03 | Cons- Oncology ---
General Information and HPI Consulting Request Date of Consult: 09/15/17 Requested By: Keri Onofre MD Reason for Consult: liver masses, lung mass Source of Information: patient, old records Exam Limitations: no limitations History of Present Illness: Ms. Russo is a 76-year-old female with DM, HTN, hypothyroidism, and CAD s/ p stent in 2006 who presented to the [facility] with severe months of weakness, dyspnea, and difficulty walking due to weakness in the thigh. She has been having symptoms for 2-3 months. It has progressively worsened. Over the last 3-4 weeks, she also noted some blood in the stool. She states the stool is pinkish. She has been having increasing difficulty climbing stairs due to shortness of breath. She also has weight loss of about 20-30 pounds. She has not seen her physician as regularly. She has not had a colonoscopy. She has not seen her water trainer in over 3 years. She has not seen her casualty claim adjuster for over a year. On presentation to the hospital, she was noted to have microcytic anemia, leukocytosis, and thrombocytosis. D-dimer was noted to be elevated. CTA of the chest, abdomen, and pelvis was done and was noted to have numerous, diffuse pulmonary nodules and diffuse liver metastases. US of the lower extremities was negative for DVT. She continues to have fatigue and weakness. She denies any new pain. Allergies/Medications Allergies: Coded Allergies: shellfish derived (Intermediate, G.I. DISTRESS FROM SCALLOPS 09/14/17) Home Med List: Atorvastatin Calcium 40 MG TABLET 1 TAB PO DAILY CHOLESTROL (Reported) Empagliflozin (Jardiance) 10 MG TABLET 1 TAB PO EOD DM (Reported) Glimepiride 4 MG TABLET 1 TAB PO DAILY DM (Reported) Levothyroxine Sodium 25 MCG TABLET 1 TAB PO DAILY THYROID (Reported) Quinapril HCl 20 MG TABLET 1 TAB PO DAILY HTN (Reported) Sitagliptin Phos/Metformin HCl (Janumet 50-1,000 MG Tablet) 50 MG-1,000 MG TABLET 1 TAB PO BID DM (Reported) Current Medications: Current Medications Sig/Rose Start time Last Medication Dose Route Stop Time Status Admin Heparin Sodium 5,000 UNIT Q8 09/14 2200 AC 09/15 (Porcine) SC 0608 Insulin Aspart 0 TIDAC 09/15 0800 AC SC Levothyroxine Sodium 0.025 MG DAILY 09/15 1000 AC PO Lisinopril 5 MG DAILY 09/15 1000 AC PO Magnesium Sulfate 1 GM ONCE ONE 09/14 2030 DC 09/14 Dextrose/Water 100 ML IV 09/15 0029 2044 Sodium Chloride 1,000 ML Q20H 09/14 2045 AC 09/14 IV 2045 Sodium Chloride 1,000 ML BOLUS ONE 09/14 1700 DC 09/14 IV 09/14 1759 1720 Sodium Chloride 1,000 ML BOLUS ONE 09/14 1215 DC 09/14 IV 09/14 1314 1306 Sodium Chloride 1,000 ML BOLUS ONE 09/14 1145 DC 09/14 IV 09/14 1244 1154 Review of Systems Review of Systems Constitutional: Reports: malaise, weakness, unexplained weight loss. Denies: chills, fever. Cardiovascular: Denies: chest pain. Respiratory: Reports: short of breath. Denies: cough, hemoptysis. GI: Reports: abdominal pain, bloody stool. Denies: nausea, vomiting. Genitourinary: Denies: dysuria, hematuria. Musculoskeletal: Denies: back pain, joint pain. Neurological/Psychological: Reports: weakness (in the thighs). Denies: confusion. All Other Systems: Reviewed and Negative Past History Travel History Traveled to [place] past 21 day No Medical History Blood Transfusion Hx: No Cardiovascular: CAD (s/p stents), hypertension, hyperlipidemia, HEART MURMUR Endocrine: diabetes, hypothyroidism, obesity Surgical History Surgical History: non-contributory Family History Relations & Conditions If Any: FATHER Relation not specified for: FH: heart disease Psychosocial History Where Do You Live? Home Who Do You Live With? self Services at Home: None Primary Language: Guatemalan Smoking Status: Former Smoker ETOH Use: denies use Illicit Drug Use: denies illicit drug use Functional Ability ADLs Independent: dressing, eating, toileting, bathing. Ambulation: independent IADLs Independent: shopping, housework, finances, telephone, medication admin. ECHO Results (as available) EF% 65 Exam & Diagnostic Data Vital Signs and I&O Vital Signs Date Time Temp Pulse Resp B/P B/P Pulse O2 O2 Flow FiO2 Mean Ox Delivery Rate 09/15 624 98.8 89 20 140/64 95 Room Air 09/14 2125 98.8 101 18 122/60 96 09/140 Room Air 09/14 1932 98.8 101 18 122/60 96 09/14 1737 99.1 95 20 189/84 98 Room Air 09/14 1451 97.6 102 18 166/74 97 Room Air 09/14 1137 96 Room Air 09/14 1109 97.6 116 20 134/76 96 Room Air Intake & Output 09/15 0800 09/15 0000 09/14 1600 Intake Total 277 402 5527 Output Total 251 2 Balance 690 160 5046 Intake, IV 227 523 7173 Intake, Oral 240 Number 2 2 Bowel Movements Output, Stool 1 1 Output, Urine 250 1 Patient 84.822 kg 84.964 kg 68.039 kg Weight Weight Bed scale Reported by Patient Measurement Method Physical Exam General Appearance: well developed/nourished, no apparent distress, alert, awake , comfortable, obese Head: atraumatic, normal appearance Eyes: Bilateral: PERRL, EOMI. Ears, Nose, Throat: normal pharynx Respiratory: normal breath sounds, chest non-tender, no respiratory distress, quiet respiration Cardiovascular: regular rate/rhythm, murmur Gastrointestinal: normal bowel sounds, soft, non-tender, obese Extremities: normal inspection, no edema Neurologic/Psych: awake, alert, oriented x 3 Skin: intact, warm/dry Lymphatic: no anterior cervical guille Last 48 Hours of Lab Results: Laboratory Tests 09/14 09/14 1707 1631 Chemistry Lactic Acid (0.7 - 2.1 mmol/L) 1.9 Urines Urine Color (YEL,AMB,STR) YEL Urine Clarity (CLEAR) HAZY H Urine pH (5.0 - 8.0) 6.0 Ur Specific [place] (1.001 - 1.035) <= 1.005 Urine Protein (NEG,<30 MG/DL) NEG Urine Ketones (NEG) NEG Urine Nitrite (NEG) NEG Urine Bilirubin (NEG) NEG Urine Urobilinogen (0.1 - 1.0 EU/dl) 2.0 H Ur Leukocyte Esterase (NEG) SMALL H Ur Microscopic SEDIMENT EXAMINED Urine RBC (0 - 5 /HPF) 3-5 Urine WBC (0 - 2 /HPF) 5-10 H Ur Epithelial Cells (NONE,FEW) FEW Urine Bacteria (NEG/NONE) MANY H Urine Mucus (FEW,NONE) RARE Urine Hemoglobin (NEG) MOD H Urine Glucose (N MG/DL) NEG 09/14 1122 Chemistry Sodium (137 - 145 mmol/L) 132 L Potassium (3.5 - 5.1 mmol/L) 3.7 Chloride (98 - 107 mmol/L) 92 L Carbon Dioxide (22 - 30 mmol/L) 27 Anion Gap (5 - 16) 13 BUN (7 - 17 mg/dL) 11 Creatinine (0.5 - 1.0 mg/dL) 0.5 Estimated GFR (>60 ml/min) > 60 BUN/Creatinine Ratio (7 - 25 %) 22.0 Glucose (65 - 99 mg/dL) 196 H Lactic Acid (0.7 - 2.1 mmol/L) 4.2 H Calcium (8.4 - 10.2 mg/dL) 9.0 Magnesium (1.6 - 2.3 mg/dL) 1.4 L Total Bilirubin (0.2 - 1.3 mg/dL) 1.2 AST (14 - 36 U/L) 66 H ALT (9 - 52 U/L) 25 Alkaline Phosphatase (<127 U/L) 398 H Troponin I (< 0.11 ng/ml) < 0.01 Total Protein (6.3 - 8.2 g/dL) 5.3 L Albumin (3.5 - 5.0 g/dL) 2.6 L Globulin (1.9 - 4.2 gm/dL) 2.7 Albumin/Globulin Ratio (1.1 - 2.2 %) 1.0 L TSH &T3 &Free T4 Intrp (0.270 - 4.20 uIU/mL) 2.400 Coagulation PT (9.4 - 12.5 SEC) 15.8 H INR (0.90 - 1.19) 1.44 H APTT (25 - 37 SEC) 28 D-Dimer High Sensitivty (0 - 243 ng/ml) 1607 H Hematology CBC w Diff MAN DIFF ORDERED WBC (4.8 - 10.8 /CUMM) 18.4 H RBC (4.20 - 5.40 /CUMM) 4.26 Hgb (12.0 - 16.0 G/DL) 9.7 L Hct (37 - 47 %) 30.8 L MCV (81.0 - 99.0 FL) 72.2 L MCH (27.0 - 31.0 PG) 22.7 L MCHC (33.0 - 37.0 G/DL) 31.4 L RDW (11.5 - 14.5 %) 20.6 H Plt Count (130 - 400 /CUMM) 504 H MPV (7.4 - 10.4 FL) 6.6 L Gran % (42.2 - 75.2 %) 79.9 H Lymphocytes % (20.5 - 51.1 %) 13.4 L Monocytes % (1.7 - 9.3 %) 6.5 Eosinophils % (0 - 5 %) 0.1 Basophils % (0.0 - 2.0 %) 0.1 Absolute Granulocytes (1.4 - 6.5 /CUMM) 14.7 H Absolute Lymphocytes (1.2 - 3.4 /CUMM) 2.5 Absolute Monocytes (0.10 - 0.60 /CUMM) 1.2 H Absolute Eosinophils (0.0 - 0.7 /CUMM) 0 Absolute Basophils (0.0 - 0.2 /CUMM) 0 Platelet Estimate (ADEQUATE) INCREASED Hypochromic-Microcytic 2+ Poikilocytosis 2+ Anisocytosis 2+ Microcytic Cells 1+ Ovalocytes 1+ Elliptocytes 1+ Imaging/Other Studies: CTA Chest/abdomen/pelvis 09/14/2017: 1. No evidence of pneumonia. Numerous, diffuse pulmonary nodules consistent with metastatic disease. 2. No evidence of mediastinal or hilar adenopathy. 3. No evidence of pulmonary embolic disease. 4. Diffuse liver metastases. 5. No evidence of mesenteric ischemia, pneumoperitoneum, or intestinal obstruction. 6. No evidence of active diverticulitis. 7. Trace ascites in the perihepatic space and upper pelvis. 8. Extensive obstipation. An underlying colonic mass cannot be excluded especially in the absence of oral contrast. Colonoscopy may be appropriate to exclude a colonic mass giving the pattern of disease. 9. No evidence of adenopathy in the abdomen and pelvis. 10. Cholelithiasis without evidence cholecystitis 11. Multiple stones in the mid left ureter with proximal hydroureter and hydronephrosis. Nonobstructing calculi in a left lower pole calyx. 12. No adrenal or osseous metastases. US of the lower extremities 09/14/2017: Normal triplex scan without evidence of deep venous thrombosis involving the lower extremity. Very small popliteal cyst. Assessment/Plan Assessment: Ms. Russo is a 76-year-old female with DM, HTN, hypothyroidism, and CAD s/ p stent in 2006 who presented to the [facility] with severe months of weakness, dyspnea, and difficulty walking due to weakness in the thigh. On presentation, she is noted to have microcytic anemia, leukocytosis, and thrombocytosis. This is concerning for possible iron deficiency. She does not blood in her stool. She should have iron studies checked. She should have GI to evaluate her. Leukocytosis and thrombocytosis are likely reactive. CTA of the chest, abdomen, and pelvis demonstrated liver and lung lesions concerning for metastatic disease. She has never had colonoscopy done. GI evaluation would be helpful in this situation also. She was a previous smoker. Lung primary is less likely given distribution of the lung lesions. She will need liver biopsy to determine etiology. Therapeutic option will depending on pathology. Recommendations: Liver mass with pulmonary nodules: -liver biopsy for diagnosis -GI evaluation for colonoscopy Anemia: -check iron studies -GI evaluation Leukocytosis/thrombocytosis: -check iron studies -monitor for now Problem List: 1. Pulmonary nodule 2. Liver mass 3. Thrombocytosis 4. Anemia 5. Leukocytosis 6. Diabetes mellitus 7. CAD S/P STENT Other Findings/Comments: Please call [phone] with any question or concerns. Consult Acknowledgment - Thank you for your consult request.
--- NOTE | 2017-09-15 08:31 | Admission Certification ---
Admission Certification Certification Statement - As attending physician, I certify that at the time of - admission, based on clinical presentation, severity of - symptoms, need for further diagnostic testing and - therapeutic interventions, and risk of adverse outcomes - without in-hospital treatment, in my clinical assessment, - this patient requires an acute hospital stay for a minimum - of two nights or longer. I have also considered psychsocial - factors such as support system, advanced age, financial - issues, cognitive issues, and failed out-patient treatments, - past re-admission history, safety of patient, and lack of - compliance as applicable. Specific rationale supporting this admission is: Leukocytosis, lactic acidois and new multiple metastasis with unknown primary
[2017-09-15 09:42] LABS: ABSOLUTE BASOPHIL COUNT 0 /CUMM (0.0-0.2); ABSOLUTE EOSINOPHIL COUNT 0 /CUMM (0.0-0.7); ABSOLUTE GRANULOCYTE CT 12.8 /CUMM (1.4-6.5); ABSOLUTE LYMPH COUNT 1.7 /CUMM (1.2-3.4); ABSOLUTE MONOCYTE COUNT 1.7 /CUMM (0.10-0.60); BASOPHIL % 0.2 % (0.0-2.0); EOSINOPHIL % 0.2 % (0-5); GRANULOCYTE % 78.8 % (42.2-75.2); HEMATOCRIT 26.3 % (37-47); MEAN CORPUSCULAR HGB 22.9 PG (27.0-31.0); MEAN CORPUSCULAR HGB CONC 31.4 G/DL (33.0-37.0); MEAN PLATELET VOLUME 6.9 FL (7.4-10.4); PLATELET COUNT 376 /CUMM (130-400); RBC DISTRIBUTION WIDTH 20.5 % (11.5-14.5); WHITE BLOOD CELL COUNT 16.3 /CUMM (4.8-10.8)
--- NOTE | 2017-09-15 12:15 | Cons- Gastroenterology ---
General Information and HPI Consulting Request Date of Consult: 09/15/17 Requested By: Roya Conde MD Reason for Consult: 1. Chronic GI blood loss anemia 2. Alteration in bowel habit 3. Metastatic disease to liver 4. Hematochezia 5. Unintentional weight loss Source of Information: patient Exam Limitations: no limitations History of Present Illness: Ms. Russo is a 76-year-old female with past medical history of diabetes mellitus, coronary artery disease and hypertension. She presented to [facility] ED with increasing weakness and shortness of breath. Over the month prior to admission she had noted as well a change in her bowel habit. She had developed loose stools that were pink-tinged. She had not had any abdominal pain, nausea or vomiting. However, she had developed anorexia andhad lost about 40 pounds. She denies dysphagia or odynophagia. She has never had a colonoscopy or an EGD before. On admission to [facility] she had a CT Scan of the abdomen and pelvis, the results of which are as follows: IMPRESSION: 1. No evidence of pneumonia. Numerous, diffuse pulmonary nodules consistent with metastatic disease. 2. No evidence of mediastinal or hilar adenopathy. 3. No evidence of pulmonary embolic disease. 4. Diffuse liver metastases. 5. No evidence of mesenteric ischemia, pneumoperitoneum, or intestinal obstruction. 6. No evidence of active diverticulitis. 7. Trace ascites in the perihepatic space and upper pelvis. 8. Extensive obstipation. An underlying colonic mass cannot be excluded especially in the absence of oral contrast. Colonoscopy may be appropriate to exclude a colonic mass giving the pattern of disease. 9. No evidence of adenopathy in the abdomen and pelvis. 10. Cholelithiasis without evidence cholecystitis 11. Multiple stones in the mid left ureter with proximal hydroureter and hydronephrosis. Nonobstructing calculi in a left lower pole calyx. 12. No adrenal or osseous metastases. she had an H/H of 9.7/30.8 that dropped to 8.3/26.3 over the first 24 hours of admission. Her MCV was 73 with an RDW of 20.5. She had an alk phos of 398 and a T. Bili of 1.2 and an albumin of 2.6. Her PT/INR was 15.8/1.44. She does have a family history of colon cancer. Her mother of colon cancer at age 53. Allergies/Medications Allergies: Coded Allergies: shellfish derived (Intermediate, G.I. DISTRESS FROM [place] 09/14/17) Home Med List: Atorvastatin Calcium 40 MG TABLET 1 TAB PO DAILY CHOLESTROL (Reported) Empagliflozin (Jardiance) 10 MG TABLET 1 TAB PO EOD DM (Reported) Glimepiride 4 MG TABLET 1 TAB PO DAILY DM (Reported) Levothyroxine Sodium 25 MCG TABLET 1 TAB PO DAILY THYROID (Reported) Quinapril HCl 20 MG TABLET 1 TAB PO DAILY HTN (Reported) Sitagliptin Phos/Metformin HCl (Janumet 50-1,000 MG Tablet) 50 MG-1,000 MG TABLET 1 TAB PO BID DM (Reported) Current Medications: Current Medications Sig/Rose Start time Last Medication Dose Route Stop Time Status Admin Heparin Sodium 5,000 UNIT Q8 09/14 2200 AC 09/15 (Porcine) SC 0608 Insulin Aspart 0 TIDAC 09/15 0800 AC SC Levothyroxine Sodium 0.025 MG DAILY 09/15 1000 AC 09/15 PO 0952 Lisinopril 5 MG DAILY 09/15 1000 AC 09/15 PO 0952 Magnesium Sulfate 1 GM ONCE ONE 09/14 2030 DC 09/14 Dextrose/Water 100 ML IV 09/15 0029 2044 Patient Medication 1 ED ONE ONE 09/15 1200 DC Teaching ED 09/15 1201 Sodium Chloride 1,000 ML Q20H 09/14 2045 AC 09/14 IV 2045 Sodium Chloride 1,000 ML BOLUS ONE 09/14 1700 DC 09/14 IV 09/14 1759 1720 Sodium Chloride 1,000 ML BOLUS ONE 09/14 1215 DC 09/14 IV 09/14 1314 1306 Sodium Chloride 1,000 ML BOLUS ONE 09/14 1145 DC 09/14 IV 09/14 1244 1154 Past History Travel History Traveled to [place] past 21 day No Medical History Blood Transfusion Hx: No Cardiovascular: CAD (s/p stents), hypertension, hyperlipidemia, HEART MURMUR Endocrine: diabetes, hypothyroidism, obesity Surgical History Surgical History: non-contributory Family History Relations & Conditions If Any: FATHER Relation not specified for: FH: heart disease Psychosocial History Where Do You Live? Home Who Do You Live With? self Services at Home: None Primary Language: Czech Smoking Status: Former Smoker ETOH Use: denies use Illicit Drug Use: denies illicit drug use Functional Ability ADLs Independent: dressing, eating, toileting, bathing. Ambulation: independent IADLs Independent: shopping, housework, finances, telephone, medication admin. ECHO Results (as available) EF% 65 Exam & Diagnostic Data Vital Signs and I&O Vital Signs Date Time Temp Pulse Resp B/P B/P Pulse O2 O2 Flow FiO2 Mean Ox Delivery Rate 09/15 0952 88 138/60 09/15 0625 98.8 89 20 140/64 95 Room Air 09/14 2126 98.8 101 18 122/60 96 09/14 2050 Room Air 09/14 1932 98.8 101 18 122/60 96 09/14 1737 99.1 95 20 189/84 98 Room Air 09/14 1451 97.6 102 18 166/74 97 Room Air Intake & Output 09/15 1600 09/15 0400 09/14 1600 09/14 0400 09/13 1600 09/13 0400 Intake Total 131 489 4012 Output Total 250 1 2 Balance 712 526 3476 Intake, IV 084 397 7368 Intake, Oral 240 Number 2 2 Bowel Movements Output, Stool 1 1 Output, Urine 250 1 Patient 187 lb 187 lb 150 lb Weight Weight Bed scale Reported by Patient Measurement Method Physical Exam General Appearance: well developed/nourished, alert, awake Head: atraumatic, normal appearance Eyes: Bilateral: normal appearance. Ears, Nose, Throat: hearing grossly normal Neck: normal inspection, supple, full range of motion Respiratory: normal breath sounds, chest non-tender, no respiratory distress, lungs clear Cardiovascular: regular rate/rhythm, II/ Blowing holosystolic murmur Gastrointestinal: normal bowel sounds, soft, non-tender, no organomegaly Extremities: normal inspection, no edema Neurologic/Psych: awake, alert, oriented x 3, normal mood/affect Cranial Nerves: Cranial Nerves II-XII grossly intact Skin: intact, warm/dry Results Pertinent Lab Results: Laboratory Tests 09/15 09/14 0745 1707 Chemistry Sodium (137 - 145 mmol/L) 133 L Potassium (3.5 - 5.1 mmol/L) 3.3 L Chloride (98 - 107 mmol/L) 98 Carbon Dioxide (22 - 30 mmol/L) 27 Anion Gap (5 - 16) 9 BUN (7 - 17 mg/dL) 9 Creatinine (0.5 - 1.0 mg/dL) 0.5 Estimated GFR (>60 ml/min) > 60 BUN/Creatinine Ratio (7 - 25 %) 18.0 Lactic Acid (0.7 - 2.1 mmol/L) 1.9 Magnesium (1.6 - 2.3 mg/dL) 1.5 L Hematology CBC w Diff NO MAN DIFF REQ WBC (4.8 - 10.8 /CUMM) 16.3 H RBC (4.20 - 5.40 /CUMM) 3.60 L Hgb (12.0 - 16.0 G/DL) 8.3 L Hct (37 - 47 %) 26.3 L MCV (81.0 - 99.0 FL) 73.0 L MCH (27.0 - 31.0 PG) 22.9 L MCHC (33.0 - 37.0 G/DL) 31.4 L RDW (11.5 - 14.5 %) 20.5 H Plt Count (130 - 400 /CUMM) 376 MPV (7.4 - 10.4 FL) 6.9 L Gran % (42.2 - 75.2 %) 78.8 H Lymphocytes % (20.5 - 51.1 %) 10.4 L Monocytes % (1.7 - 9.3 %) 10.4 H Eosinophils % (0 - 5 %) 0.2 Basophils % (0.0 - 2.0 %) 0.2 Absolute Granulocytes (1.4 - 6.5 /CUMM) 12.8 H Absolute Lymphocytes (1.2 - 3.4 /CUMM) 1.7 Absolute Monocytes (0.10 - 0.60 /CUMM) 1.7 H Absolute Eosinophils (0.0 - 0.7 /CUMM) 0 Absolute Basophils (0.0 - 0.2 /CUMM) 0 09/14 1631 Urines Urine Color (YEL,AMB,STR) YEL Urine Clarity (CLEAR) HAZY H Urine pH (5.0 - 8.0) 6.0 Ur Specific [place] (1.001 - 1.035) <= 1.005 Urine Protein (NEG,<30 MG/DL) NEG Urine Ketones (NEG) NEG Urine Nitrite (NEG) NEG Urine Bilirubin (NEG) NEG Urine Urobilinogen (0.1 - 1.0 EU/dl) 2.0 H Ur Leukocyte Esterase (NEG) SMALL H Ur Microscopic SEDIMENT EXAMINED Urine RBC (0 - 5 /HPF) 3-5 Urine WBC (0 - 2 /HPF) 5-10 H Ur Epithelial Cells (NONE,FEW) FEW Urine Bacteria (NEG/NONE) MANY H Urine Mucus (FEW,NONE) RARE Urine Hemoglobin (NEG) MOD H Urine Glucose (N MG/DL) NEG 09/14 1122 Chemistry Sodium (137 - 145 mmol/L) 132 L Potassium (3.5 - 5.1 mmol/L) 3.7 Chloride (98 - 107 mmol/L) 92 L Carbon Dioxide (22 - 30 mmol/L) 27 Anion Gap (5 - 16) 13 BUN (7 - 17 mg/dL) 11 Creatinine (0.5 - 1.0 mg/dL) 0.5 Estimated GFR (>60 ml/min) > 60 BUN/Creatinine Ratio (7 - 25 %) 22.0 Glucose (65 - 99 mg/dL) 196 H Lactic Acid (0.7 - 2.1 mmol/L) 4.2 H Calcium (8.4 - 10.2 mg/dL) 9.0 Magnesium (1.6 - 2.3 mg/dL) 1.4 L Total Bilirubin (0.2 - 1.3 mg/dL) 1.2 AST (14 - 36 U/L) 66 H ALT (9 - 52 U/L) 25 Alkaline Phosphatase (<127 U/L) 398 H Troponin I (< 0.11 ng/ml) < 0.01 Total Protein (6.3 - 8.2 g/dL) 5.3 L Albumin (3.5 - 5.0 g/dL) 2.6 L Globulin (1.9 - 4.2 gm/dL) 2.7 Albumin/Globulin Ratio (1.1 - 2.2 %) 1.0 L TSH &T3 &Free T4 Intrp (0.270 - 4.20 uIU/mL) 2.400 Coagulation PT (9.4 - 12.5 SEC) 15.8 H INR (0.90 - 1.19) 1.44 H APTT (25 - 37 SEC) 28 D-Dimer High Sensitivty (0 - 243 ng/ml) 1607 H Hematology CBC w Diff MAN DIFF ORDERED WBC (4.8 - 10.8 /CUMM) 18.4 H RBC (4.20 - 5.40 /CUMM) 4.26 Hgb (12.0 - 16.0 G/DL) 9.7 L Hct (37 - 47 %) 30.8 L MCV (81.0 - 99.0 FL) 72.2 L MCH (27.0 - 31.0 PG) 22.7 L MCHC (33.0 - 37.0 G/DL) 31.4 L RDW (11.5 - 14.5 %) 20.6 H Plt Count (130 - 400 /CUMM) 504 H MPV (7.4 - 10.4 FL) 6.6 L Gran % (42.2 - 75.2 %) 79.9 H Lymphocytes % (20.5 - 51.1 %) 13.4 L Monocytes % (1.7 - 9.3 %) 6.5 Eosinophils % (0 - 5 %) 0.1 Basophils % (0.0 - 2.0 %) 0.1 Absolute Granulocytes (1.4 - 6.5 /CUMM) 14.7 H Absolute Lymphocytes (1.2 - 3.4 /CUMM) 2.5 Absolute Monocytes (0.10 - 0.60 /CUMM) 1.2 H Absolute Eosinophils (0.0 - 0.7 /CUMM) 0 Absolute Basophils (0.0 - 0.2 /CUMM) 0 Platelet Estimate (ADEQUATE) INCREASED Hypochromic-Microcytic 2+ Poikilocytosis 2+ Anisocytosis 2+ Microcytic Cells 1+ Ovalocytes 1+ Elliptocytes 1+ Assessment/Plan Assessment/Recommendations: ASSESSMENT: 1. Chronic GI blood loss anemia 2. Alteration in bowel habit 3. Metastatic disease to liver and lung -- ? colonic primary 4. Hematochezia 5. Unintentional weight loss 6. Abnormal CT scan of the abdomen and pelvis RECOMMENDATIONS: 1. EGD and Colonoscopy in a.m. 2. Clear liquid diet beginning now 3. GoLYTELY 5 PM 2 L 4. Dulcolax 2 tablets at at bedtime 5. GoLYTELY 2 L at 4 AM on Tuesday morning and then nothing by mouth after words 6. Risks and benefits procedure were discussed with patient and her daughter. All questions were answered. Consult Acknowledgment - Thank you for your consult request.
--- NOTE | 2017-09-15 18:17 | ULTRASOUND REPORT ---
EXAMINATION: Ultrasound-guided liver biopsy CLINICAL INFORMATION: 76-year-old patient presenting with numerous pulmonary nodules and bilateral hepatic mass lesions consistent with metastatic disease. COMPARISON: CTA of the chest, abdomen, and pelvis dated 09/14/2017 PHOTOENGRAVER: Bacilio Saha M.D. DESCRIPTION: Informed consent was obtained from the patient prior to the procedure. During this process, the procedure and potential alternatives was explained, along with the intended outcome and benefits. The risks of the procedure, as well as the risk of not doing the procedure, were discussed. The patient was given the opportunity to ask questions regarding the procedure and appeared competent to make medical decisions. A signed consent form which documents this discussion was placed in the medical record. The patient's prior diagnostic studies were reviewed. Sonographic evaluation of the liver demonstrates a suitable percutaneous window for biopsy of a lesion in the right lobe via a midline subcostal approach. The skin of the right upper quadrant was sterilely prepped and draped. Maximum sterile barrier technique was maintained throughout the procedure. 1% lidocaine and 0.5% lidocaine were administered for local anesthesia and deep anesthesia down to the liver capsule. Under continuous sonographic guidance, a 19 gauge guiding needle was advanced through normal hepatic parenchyma to the margin of the target lesion. Five 20-gauge cores were sequentially obtained using coaxial technique and submitted in buffered formalin for histopathology. A touch prep was prepared and reviewed confirming diagnostic tissue was obtained. 2 Gelfoam pledgets were injected through the guiding needle into the needle track. The guide needle was removed and a sterile dressing was applied. The patient tolerated the procedure well without evidence of immediate complications. IMPRESSION: Successful ultrasound-guided core needle biopsy of a mass lesion in the right lobe of the liver without evidence of complications.
[2017-09-15 22:46] VITALS: BP 144/60
[2017-09-16 06:38] VITALS: BP 120/64
--- NOTE | 2017-09-16 07:48 | PN- Housestaff ---
Neri ALBARADO,Flaquiat 09/16/17 0748: Subjective Follow-up For: liver and pulmonary metastasis Complaints: no complaints Subjective: Patient seen and examined at bedside. She was sitting in her bed with her daughter but the bedside. No complaints. No overnight events. Patient just came back from colonoscopy. She denies abdominal pain nausea, vomiting, chest pain, shortness of breath. Review of Systems Constitutional: Reports: see HPI. Objective Last 24 Hrs of Vital Signs/I&O Vital Signs Date Time Temp Pulse Resp B/P B/P Pulse O2 O2 Flow FiO2 Mean Ox Delivery Rate 09/16 1021 70 142/58 09/16 0638 98.0 97 20 120/64 95 Room Air 09/15 2246 99.1 94 20 144/60 96 Room Air Intake & Output 09/16 1600 09/16 0800 09/16 0000 Intake Total 1900 1950 Output Total 1 Balance 1900 1949 Intake, IV 400 350 Intake, Oral 1500 1600 Number 1 7 3 Bowel Movements Output, Stool 1 Patient 185 lb 185 lb Weight Physical Exam General Appearance: Alert, Oriented X3, Cooperative, No Acute Distress HEENT: PERRLA, EOMI Cardiovascular: Normal S1, Normal S2, No Murmurs Lungs: Clear to Auscultation Abdomen: Soft, No Tenderness, hepatomegaly Neurological: Strength at 5/5 X4 Ext, Normal Tone, Sensation Intact Extremities: No Cyanosis, No Edema, Normal Pulses Current Medications: Current Medications Sig/Rose Start time Last Medication Dose Route Stop Time Status Admin Bisacodyl 10 MG ONCE ONE 09/15 2100 DC 09/15 PO 09/15 2100 2047 Bisacodyl 5 MG ONE ONE 09/15 2100 CAN PO 09/15 210 Bupivacaine HCl 0 .STK-MED ONE 09/15 1408 DC .ROUTE Chlorhexidine 1 GM .STK-MED ONE 09/16 1047 DC Gluconate TOP 09/16 1048 Fentanyl Citrate 0 .STK-MED ONE 09/15 1408 DC .ROUTE Heparin Sodium 5,000 UNIT Q8 09/14 2200 AC 09/16 (Porcine) SC 1311 Insulin Aspart 0 TIDAC 09/15 0800 AC 09/16 SC 1310 Levothyroxine Sodium 0.025 MG DAILY 09/15 1000 AC 09/16 PO 1021 Lisinopril 5 MG DAILY 09/15 1000 AC 09/16 PO 1021 Polyethylene Glycol 0.5 GAL ONCE ONE 09/16 0400 DC 09/16 PO 09/16 0401 0405 Polyethylene Glycol 0.5 GAL ONCE ONE 09/15 1700 DC 09/15 PO 09/15 1701 1709 Sodium Chloride 1,000 ML Q20H 09/14 2044 AC 09/16 IV 1311 Last 24 Hrs of Lab/Tha Results Last 24 Hrs of Labs/Mics: Laboratory Tests 09/16/17 0735: Anion Gap 11, Estimated GFR > 60, BUN/Creatinine Ratio 17.5, CBC w Diff NO MAN DIFF REQ, RBC 3.64 L, MCV 72.2 L, MCH 23.2 L, MCHC 32.2 L, RDW 20.9 H, MPV 6.3 L, Gran % 80.4 H, Lymphocytes % 10.4 L, Monocytes % 9.1, Eosinophils % 0.1, Basophils % 0, Absolute Granulocytes 13.6 H, Absolute Lymphocytes 1.8, Absolute Monocytes 1.5 H, Absolute Eosinophils 0, Absolute Basophils 0 09/16/17 0600: Carcinoembryonic Ag Pending Assessment/Plan Assessment: 76-year-old female past medical history of diabetes, coronary artery disease status post stent in 2006, hypothyroidism, hypertension, urolithiasis presents for evaluation of weakness, altered bowel habits, shortness of breath. Patient is admitted to general medical floor for further evaluation and management. Assessment and plan 1. 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 Patient has multiple metastasis to liver and lung. Patient was seen by oncologist who suggested a liver biopsy and colonoscopy to look for primary. Patient had a colonoscopy done today and liver biopsy done yesterday. We will follow up with pathology. Dr. anderson updated about the colonoscopy findings for this think she has large rectal mass possibly malignancy. Patient and her family made aware by Dr. anderson. Our medical team had an extensive discussion with the patient's family. They like to be seen by the colorectal surgeon for further management. Patient is on liquid diet. 2.Chronic medical condition -multinodular goiter, hypertension, type 2 diabetes - * We will continue levothyroxine, lisinopril, Fingerstick 4 times daily/HS * NovoLog according to the sliding scale. Diet -full liquid diet DVT prophylaxis -heparin 5000 subcutaneous every 8 hours CODE STATUS -full cod Problem List: 1. Liver mass 2. Pulmonary nodule 3. Rectal mass Pain Ratin Pain Location: none Pain Goal: Remain pain free Pain Plan: tylenol Tomorrow's Labs & Rationales: cbc,bep Roya Conde 09/16/17 1053: Attending MD Review Statement Attending Statement Attending MD Statement: examined this patient, discuss w/resident/PA/SCALES INSPECTOR, agreed w/resident/PA/SCALES INSPECTOR, discussed with family, reviewed EMR data (avail), discussed with nursing, discussed with case mgmt, reviewed images, amended to note Attending Assessment/Plan: 76 o/f is admitted with abnornal nodules in liver and lung with h/o weight loss and loss of appetitie concerning for metastatic disease. Hem/onc and GI consulted. S/P EGD/colonoscopy today suggestive of bulky tumor in rectum. Oncology did recommend IR guided biopsy from liver tissue which patient underwent without any complications, follow results. GI recommned [place]-rectal surgery consult and plan for diverting colostomy with chemotherapy in future. No role of radiation. Arrange family meeting for further plan of care and prognosis with goals of care.
--- NOTE | 2017-09-16 07:55 | PN- Oncology ---
Subjective Subjective: She is undergoing prep for colonoscopy. She is fatigued. She underwent liver biopsy yesterday. Review of Systems Constitutional: Denies: chills, fever. Gastrointestinal: Reports: diarrhea. Musculoskeletal: Denies: back pain. All Other Systems: Reviewed and Negative Objective Vital Signs and I&Os Vital Signs Date Time Temp Pulse Resp B/P B/P Pulse O2 O2 Flow FiO2 Mean Ox Delivery Rate 09/16 0638 98.0 97 20 120/64 95 Room Air 09/15 2246 99.1 94 20 144/60 96 Room Air 09/15 0952 88 138/60 Intake & Output 09/16 0800 09/16 0000 09/15 1600 09/15 0800 09/15 0000 09/14 1600 Intake Total 1900 1950 240 215 506 7826 Output Total 1 300 251 2 Balance 1900 9 -60 551 680 4997 Intake, IV 400 350 589 282 4866 Intake, Oral 1500 1600 240 240 Number 7 3 1 2 2 Bowel Movements Output, Stool 1 1 1 Output, Urine 300 250 1 Patient 84.056 kg 84.822 kg 84.964 kg 68.039 kg Weight Weight Bed scale Reported by Patient Measurement Method Physical Exam: Limited due to commode usage Physical Exam General Appearance: no apparent distress, alert, awake Respiratory: no respiratory distress Extremities: no edema Neurologic/Psychiatric: awake, alert, oriented x 3 Current Medications: Current Medications Sig/Rose Start time Last Medication Dose Route Stop Time Status Admin Bisacodyl 10 MG ONCE ONE 09/15 2100 DC 09/15 PO 09/15 2100 2047 Bisacodyl 5 MG ONE ONE 09/15 2100 CAN PO 09/15 2100 Bupivacaine HCl 0 .STK-MED ONE 09/15 1408 DC .ROUTE Fentanyl Citrate 0 .STK-MED ONE 09/15 1408 DC .ROUTE Heparin Sodium 5,000 UNIT Q8 09/14 2200 AC 09/16 (Porcine) SC 0548 Insulin Aspart 0 TIDAC 09/15 0800 AC SC Levothyroxine Sodium 0.025 MG DAILY 09/15 1000 AC 09/15 PO 0952 Lisinopril 5 MG DAILY 09/15 1000 AC 09/15 PO 0952 Patient Medication 1 ED ONE ONE 09/15 1200 DC Teaching ED 09/15 1201 Polyethylene Glycol 0.5 GAL ONCE ONE 09/16 0400 DC 09/16 PO 09/16 0401 0405 Polyethylene Glycol 0.5 GAL ONCE ONE 09/15 1700 DC 09/15 PO 09/15 1701 1709 Sodium Chloride 1,000 ML Q20H 09/14 2045 AC 09/15 IV 1709 Results Last 24 Hours of Lab Results: Laboratory Tests 09/16 0735 Chemistry Sodium Pending Potassium Pending Chloride Pending Carbon Dioxide Pending Anion Gap Pending BUN Pending Creatinine Pending BUN/Creatinine Ratio Pending Hematology CBC w Diff Pending WBC Pending RBC Pending Hgb Pending Hct Pending MCV Pending MCH Pending MCHC Pending RDW Pending Plt Count Pending MPV Pending Assessment/Plan Assessment/Recommendations: Ms. Russo is a 76-year-old female with DM, HTN, hypothyroidism, and CAD s/ p stent in 2006 who presented to the [facility] with severe months of weakness, dyspnea, and difficulty walking due to weakness in the thigh. On presentation, she is noted to have microcytic anemia, leukocytosis, and thrombocytosis. This is concerning for possible iron deficiency. She does not blood in her stool. She should have iron studies checked. Leukocytosis and thrombocytosis are likely reactive. CTA of the chest, abdomen, and pelvis demonstrated liver and lung lesions concerning for metastatic disease. She has never had colonoscopy done. She has underwent liver biopsy. Pathology is pending. Colonoscopy and EGD is planned. Liver mass with pulmonary nodules: -follow up pathology from liver -GI evaluation for colonoscopy/EGD Anemia: -check iron studies -follow up colonoscopy/EGD Leukocytosis/thrombocytosis: -monitor for now Please call [phone] with any questions or concerns. Problem List: 1. Liver mass 2. Pulmonary nodule 3. Thrombocytosis 4. Anemia 5. Leukocytosis 6. Hematochezia
[2017-09-16 08:10] LABS: ABSOLUTE BASOPHIL COUNT 0 /CUMM (0.0-0.2); ABSOLUTE EOSINOPHIL COUNT 0 /CUMM (0.0-0.7); ABSOLUTE GRANULOCYTE CT 13.6 /CUMM (1.4-6.5); ABSOLUTE LYMPH COUNT 1.8 /CUMM (1.2-3.4); ABSOLUTE MONOCYTE COUNT 1.5 /CUMM (0.10-0.60); BASOPHIL % 0 % (0.0-2.0); EOSINOPHIL % 0.1 % (0-5); GRANULOCYTE % 80.4 % (42.2-75.2); HEMATOCRIT 26.3 % (37-47); MEAN CORPUSCULAR HGB 23.2 PG (27.0-31.0); MEAN CORPUSCULAR HGB CONC 32.2 G/DL (33.0-37.0); MEAN CORPUSCULAR VOLUME 72.2 FL (81.0-99.0); MEAN PLATELET VOLUME 6.3 FL (7.4-10.4); PLATELET COUNT 361 /CUMM (130-400); RBC DISTRIBUTION WIDTH 20.9 % (11.5-14.5); RED BLOOD CELL CT 3.64 /CUMM (4.20-5.40)
--- NOTE | 2017-09-16 08:12 | PN- Gastroenterology ---
Assessment/Plan GI Assessment/Recommendations: 76 y/o female, obese, DM, HTN, hypoT4, CAD post cardiac stent x 2- 2006, hx renal stones (? type), ex-40 pk yr cigarette smoker, D/C 1977, +FHx colon Ca (M- 53) , w/o any prior EGD or colonoscopy, noncompliant with medical follow-up for at least a year, admitted to [facility] 09/14/17 with 1 year of unintentional 30 pound weight loss, weakness, progressive shortness of breath, loose stools, occasionally pink tinged/scant rectal bleeding, with elevated LFTs and microcytic anemia. Imaging studies showed an enlarged liver with multiple lesions consistent with metastatic disease and numerous pulmonary nodules. The patient was seen by oncology and had a sono guided liver biopsy by IR , results of which are pending. She had been prepped for an EGD/colonoscopy with GoLYTELY. She denied any upper GI symptoms. She had no obstipation, constipation, or tenesmus. (*Records reviewed in detail. GI care assumed from Dr. Fisher 09/16/17. Case discussed with Dr. Paulino). *As of 09/16/17, the patient remained somewhat fatigued. She was compliant with nearly the entire gallon of GoLYTELY. She denied any recurrent rectal bleeding. She had no abdominal pain or chest pain. She was mildly short of breath. She was hemodynamically stable and afebrile. She was NPO, awaiting EGD & colonoscopy. She has not required any transfusions, regarding her microcytic anemia. The family history of colon CA was noted (M- 53). She had undergone an uneventful sono-guided liver biopsy by IR 09/15/17, with pathology- pending. *SUGGEST: Replete electrolytes. Follow-up CBC & LFTs. Await EGD/colonoscopy later on . The risks and benefits of EGD/colonoscopy were explained to the patient and informed consent was obtained. Await results of 09/15/17: liver biopsy, per IR/oncology. *Advise checking iron studies, CEA, consider AFP (doubt multifocal hepatoma), consider CA19-9. Treatment of numerous other issues per medical team. DVT prophylaxis. *Further GI recommendations to follow, post EGD/ colonoscopy. The patient is aware that ultimately it may take a couple of weeks for tissue diagnosis from the liver biopsy to return. The case was discussed with Dr. Paulino, of oncology. Problem List: 1. Multiple lesions of metastatic malignancy 2. Liver mass 3. Diarrhea 4. Hematochezia 5. Abnormal LFTs 6. Malnutrition 7. Microcytic anemia 8. Pulmonary nodule Subjective Subjective: (*Records reviewed in detail. GI care assumed from Dr. Fisher 09/16/17. * Please refer to her GI consult of 09/15/17. Case discussed with Dr. Paulino). *As of 09/16/17, the patient remained somewhat fatigued. She was compliant with nearly the entire gallon of GoLYTELY. She denied any recurrent rectal bleeding. She had no abdominal pain or chest pain. She was mildly short of breath. She was hemodynamically stable and afebrile. She was NPO, awaiting EGD & colonoscopy. She has not required any transfusions, regarding her microcytic anemia. The family history of colon CA was noted (M- 53). She had undergone an uneventful sono-guided liver biopsy by IR 09/15/17, with pathology- pending. Review of Systems: Full 14 point review of systems otherwise non-contributory, and as above Constitutional: Reports: weakness. Cardiovascular: Reports: no symptoms. Respiratory: Reports: short of breath. GI: Reports: mild diarrhea, bloody stool, changes in stool. Genitourinary: Reports: no symptoms. Musculoskeletal: Reports: no symptoms. Skin: Reports: no symptoms. Neurological/Psychological: Reports: no symptoms. Hematologic/Endocrine: Reports: no symptoms. Objective Vital Signs and I&Os Vital Signs Date Time Temp Pulse Resp B/P B/P Pulse O2 O2 Flow FiO2 Mean Ox Delivery Rate 09/16 0538 98.0 97 20 120/64 95 Room Air 09/15 2246 99.1 94 20 144/60 96 Room Air 09/15 0952 88 138/60 Intake & Output 09/16 1600 09/16 0400 09/15 1600 09/15 0400 09/14 1600 09/14 0400 Intake Total 1900 1950 827 497 1370 Output Total 1 550 1 2 Balance 1899 1949 90 389 1098 Intake, IV 400 350 629 356 5609 Intake, Oral 1500 1600 240 240 Number 7 3 3 2 Bowel Movements Output, Stool 1 1 1 Output, Urine 550 1 Patient 185 lb 187 lb 187 lb 150 lb Weight Weight Bed scale Reported by Patient Measurement Method Physical Exam: Well-developed, slightly malnourished, morbidly obese female, in no apparent distress. Sclera anicteric. Conjunctiva pink. Oropharynx clear. No oral thrush. No aphthous ulcers. False uppers & lowers removed. Edentulous. There is no adenopathy, thyromegaly, or JVD. No peripheral stigmata of inflammatory bowel disease or chronic liver disease on exam. No spiders on the anterior chest wall. No spine tenderness. No CVA tenderness. Breast & pelvic exams: API. Lungs: clear to A&P, with decreased BS at the bases B/L. no wheezing, rales, or rhonchi. Heart exam: regular rate rhythm, S1 and S2, with I/ systolic murmur. Abdominal exam: normal bowel sounds, soft obese belly, nontender, without guarding or rebound. No definite mass. Enlarged liver approximately 20 cm by percussion. Liver biopsy site dressed. Negative Miller sign. No palpable spleen tip. No definite fluid shift. No pulsatile mass. No epigastric bruit. Digital rectal exam: deferred by patient for upcoming colonoscopy (reportedly "OB-neg w/ o mass earlier this admission", per patient) Extremities: without cyanosis or clubbing. < 1+ pitting edema LE B/L, L > R. No palpable cords. Distal pulses 1 + bilaterally. DTRs 2+ bilaterally. Alert and oriented x 3. Left handed. Motor 5/5 B/L. Current Medications: Current Medications Sig/Rose Start time Last Medication Dose Route Stop Time Status Admin Bisacodyl 10 MG ONCE ONE 09/15 2100 DC 09/15 PO 09/15 Bisacodyl 5 MG ONE ONE 09/15 2100 CAN PO 09/15 2100 Bupivacaine HCl 0 .STK-MED ONE 09/15 1408 DC .ROUTE Fentanyl Citrate 0 .STK-MED ONE 09/15 140 DC .ROUTE Heparin Sodium 5,000 UNIT Q8 09/14 2200 AC 09/16 (Porcine) SC 0548 Insulin Aspart 0 TIDAC 09/15 0800 AC SC Levothyroxine Sodium 0.025 MG DAILY 09/15 1000 AC 09/15 PO 0952 Lisinopril 5 MG DAILY 09/15 1000 AC 09/15 PO 0952 Patient Medication 1 ED ONE ONE 09/15 1200 DC Teaching ED 09/15 1201 Polyethylene Glycol 0.5 GAL ONCE ONE 09/16 0400 DC 09/16 PO 09/16 0401 0405 Polyethylene Glycol 0.5 GAL ONCE ONE 09/15 1700 DC 09/15 PO 09/15 1701 1709 Sodium Chloride 1,000 ML Q20H 09/14 204 AC 09/15 IV 1709 Results Pertinent Lab Results: Laboratory Tests 09/16 09/15 09/14 0735 0745 1707 Chemistry Sodium (137 - 145 mmol/L) Pending 133 L Potassium (3.5 - 5.1 mmol/L) Pending 3.3 L Chloride (98 - 107 mmol/L) Pending 98 Carbon Dioxide (22 - 30 mmol/L) Pending 27 Anion Gap (5 - 16) Pending 9 BUN (7 - 17 mg/dL) Pending 9 Creatinine (0.5 - 1.0 mg/dL) Pending 0.5 Estimated GFR (>60 ml/min) > 60 BUN/Creatinine Ratio (7 - 25 %) Pending 18.0 Lactic Acid (0.7 - 2.1 mmol/L) 1.9 Magnesium (1.6 - 2.3 mg/dL) 1.5 L Iron (37 - 170 ug/dL) Pending TIBC (265 - 497 ug/dL) Pending % Saturation (16 - 45 %) Pending Ferritin (11.1 - 264 ng/mL) Pending Hematology CBC w Diff Pending NO MAN DIFF REQ WBC (4.8 - 10.8 /CUMM) Pending 16.3 H RBC (4.20 - 5.40 /CUMM) Pending 3.60 L Hgb (12.0 - 16.0 G/DL) Pending 8.3 L Hct (37 - 47 %) Pending 26.3 L MCV (81.0 - 99.0 FL) Pending 73.0 L MCH (27.0 - 31.0 PG) Pending 22.9 L MCHC (33.0 - 37.0 G/DL) Pending 31.4 L RDW (11.5 - 14.5 %) Pending 20.5 H Plt Count (130 - 400 /CUMM) Pending 376 MPV (7.4 - 10.4 FL) Pending 6.9 L Gran % (42.2 - 75.2 %) 78.8 H Lymphocytes % (20.5 - 51.1 %) 10.4 L Monocytes % (1.7 - 9.3 %) 10.4 H Eosinophils % (0 - 5 %) 0.2 Basophils % (0.0 - 2.0 %) 0.2 Absolute Granulocytes (1.4 - 6.5 /CUMM) 12.8 H Absolute Lymphocytes (1.2 - 3.4 /CUMM) 1.7 Absolute Monocytes (0.10 - 0.60 /CUMM) 1.7 H Absolute Eosinophils (0.0 - 0.7 /CUMM) 0 Absolute Basophils (0.0 - 0.2 /CUMM) 0 09/14 1631 Urines Urine Color (YEL,AMB,STR) YEL Urine Clarity (CLEAR) HAZY H Urine pH (5.0 - 8.0) 6.0 Ur Specific [place] (1.001 - 1.035) <= 1.005 Urine Protein (NEG,<30 MG/DL) NEG Urine Ketones (NEG) NEG Urine Nitrite (NEG) NEG Urine Bilirubin (NEG) NEG Urine Urobilinogen (0.1 - 1.0 EU/dl) 2.0 H Ur Leukocyte Esterase (NEG) SMALL H Ur Microscopic SEDIMENT EXAMINED Urine RBC (0 - 5 /HPF) 3-5 Urine WBC (0 - 2 /HPF) 5-10 H Ur Epithelial Cells (NONE,FEW) FEW Urine Bacteria (NEG/NONE) MANY H Urine Mucus (FEW,NONE) RARE Urine Hemoglobin (NEG) MOD H Urine Glucose (N MG/DL) NEG 09/14 1122 Chemistry Sodium (137 - 145 mmol/L) 132 L Potassium (3.5 - 5.1 mmol/L) 3.7 Chloride (98 - 107 mmol/L) 92 L Carbon Dioxide (22 - 30 mmol/L) 27 Anion Gap (5 - 16) 13 BUN (7 - 17 mg/dL) 11 Creatinine (0.5 - 1.0 mg/dL) 0.5 Estimated GFR (>60 ml/min) > 60 BUN/Creatinine Ratio (7 - 25 %) 22.0 Glucose (65 - 99 mg/dL) 196 H Lactic Acid (0.7 - 2.1 mmol/L) 4.2 H Calcium (8.4 - 10.2 mg/dL) 9.0 Magnesium (1.6 - 2.3 mg/dL) 1.4 L Total Bilirubin (0.2 - 1.3 mg/dL) 1.2 AST (14 - 36 U/L) 66 H ALT (9 - 52 U/L) 25 Alkaline Phosphatase (<127 U/L) 398 H Troponin I (< 0.11 ng/ml) < 0.01 Total Protein (6.3 - 8.2 g/dL) 5.3 L Albumin (3.5 - 5.0 g/dL) 2.6 L Globulin (1.9 - 4.2 gm/dL) 2.7 Albumin/Globulin Ratio (1.1 - 2.2 %) 1.0 L TSH &T3 &Free T4 Intrp (0.270 - 4.20 uIU/mL) 2.400 Coagulation PT (9.4 - 12.5 SEC) 15.8 H INR (0.90 - 1.19) 1.44 H APTT (25 - 37 SEC) 28 D-Dimer High Sensitivty (0 - 243 ng/ml) 1607 H Hematology CBC w Diff MAN DIFF ORDERED WBC (4.8 - 10.8 /CUMM) 18.4 H RBC (4.20 - 5.40 /CUMM) 4.26 Hgb (12.0 - 16.0 G/DL) 9.7 L Hct (37 - 47 %) 30.8 L MCV (81.0 - 99.0 FL) 72.2 L MCH (27.0 - 31.0 PG) 22.7 L MCHC (33.0 - 37.0 G/DL) 31.4 L RDW (11.5 - 14.5 %) 20.6 H Plt Count (130 - 400 /CUMM) 504 H MPV (7.4 - 10.4 FL) 6.6 L Gran % (42.2 - 75.2 %) 79.9 H Lymphocytes % (20.5 - 51.1 %) 13.4 L Monocytes % (1.7 - 9.3 %) 6.5 Eosinophils % (0 - 5 %) 0.1 Basophils % (0.0 - 2.0 %) 0.1 Absolute Granulocytes (1.4 - 6.5 /CUMM) 14.7 H Absolute Lymphocytes (1.2 - 3.4 /CUMM) 2.5 Absolute Monocytes (0.10 - 0.60 /CUMM) 1.2 H Absolute Eosinophils (0.0 - 0.7 /CUMM) 0 Absolute Basophils (0.0 - 0.2 /CUMM) 0 Platelet Estimate (ADEQUATE) INCREASED Hypochromic-Microcytic 2+ Poikilocytosis 2+ Anisocytosis 2+ Microcytic Cells 1+ Ovalocytes 1+ Elliptocytes 1+ Imaging/Other Studies: 09/14/17: EKG- ST @ 120, nl axis, nl intervals, diffuse NSST abnls (09/14/17: troponin < 0.01). 09/14/17: XRY-PORTABLE CHEST XRAY- Multiple large pulmonary nodules bilaterally for which a contrast enhanced CT of the chest is recommended for further assessment. 09/14/17: CT ABD & PELVIS ANGIOGRAM; CTA CHEST-PULMONARY EMBOLISM- 1. No evidence of pneumonia. Numerous, diffuse pulmonary nodules consistent with metastatic disease. 2. No evidence of mediastinal or hilar adenopathy. 3. No evidence of pulmonary embolic disease. 4. Diffuse liver metastases. No pancreatic mass. 5. No evidence of mesenteric ischemia, pneumoperitoneum, or intestinal obstruction. 6. No evidence of active diverticulitis. 7. Trace ascites in the perihepatic space and upper pelvis. No pelvic mass. 8. Extensive obstipation. An underlying colonic mass cannot be excluded especially in the absence of oral contrast. Colonoscopy may be appropriate to exclude a colonic mass giving the pattern of disease. 9. No evidence of adenopathy in the abdomen and pelvis. 10. Cholelithiasis without evidence cholecystitis 11. Multiple stones in the mid left ureter with proximal hydroureter and hydronephrosis. Nonobstructing calculi in a left lower pole calyx. 12. No adrenal or osseous metastases. 09/14/17: US TRIPLEX LOWER EXTREMITY, LEFT- Normal triplex scan without evidence of deep venous thrombosis involving the lower extremity. Very small popliteal cyst. 09/15/17: US-LIVER BIOPSY- IMPRESSION: Successful ultrasound-guided core needle biopsy of a mass lesion in the right lobe of the liver without evidence of complications.
--- NOTE | 2017-09-16 08:46 | Proc Note Gastroenterology ---
Gastroenterology Procedure Date of Last Colonoscopy: Never Procedure Date: 09/16/17 GI Procedure(s): Combined baseline upper endoscopy to the third portion of the duodenum, plus baseline colonoscopy to 15 cm (rectosigmoid junction; stool) with biopsies. Glove Tagger: SHAQ LOTT MD ASA Classification: IV (IV-E) Indications: INDX: (*Please refer to Dr. Fisher's GI consult of 09/15/17 & my progress note of 09/16/17). 76 y/o female with numerous comorbidities, admitted 09/14/17 with unintentional weight loss, anemia, intermittent rectal bleeding, intermittent loose stools, fatigue, SOB, & +FHx of early onset colon CA (M- deceasd 55). 09/14/17: CT CAP with IV cont- suggestive of liver and lung metastases. 09/15/17: *Liver bx by IR - results pending. Meds Received: O2- 10L via NRB mask & MAC, as per Dr. Sloan, of [facility]. Patient's Tolerance: good Complications: None Extent Reached: D3/rectosigmoid at 15 cm (stool). Procedure: Combined baseline upper endoscopy to the third portion of duodenum, plus baseline colonoscopy to 15 cm (rectosigmoid junction; stool) with biopsies, were performed with the Olympus high-definition videoscopes from above and below, after obtaining informed consent from the patient for each procedure prior to IV sedation, with the poultry barn manager and pulse oximeter, after 1 gallon of GoLYTELY, with the assistance of Dr. Sloan, of [facility]. Documenting photographs were obtained from above and below and placed inside the patient's chart. Baseline upper endoscopy to the third portion of the duodenum was performed with the Olympus high definition videoendoscope, after obtaining informed consent from the patient, with the poultry barn manager and pulse oximeter, with the assistance of Dr. Sloan, of [facility]. The patient's false upper and lower teeth were removed preoperatively. She was edentulous. A mouthpiece was placed in the usual fashion to protect the patient's oral cavity. The patient was placed in the left lateral decubitus position and sedated by [facility]. At this point, the endoscope was advanced to the fenestrated hole in the NRB mask, into the mouth, then into the esophagus, using direct visualization technique. The vocal cords appeared normal. The esophageal mucosa appeared normal. There were no esophageal rings, webs, lesions, strictures, or ulcers. There was no monilia or vesicles. There was no esophageal ribbing. Some whitish mucoid secretions were washed and suctioned clear from the distal esophagus. The Z line was well demarcated at 36 cm. There was a 2 cm sliding hiatal hernia pouch, from 36-38 cm. There were no Peter erosions. No significant esophageal inflammation was seen. There were no ectopic islands, nor gross Tate's esophagus. There were no esophageal or gastric varices, nor any Jennifer Durán tear. The butterfield of the stomach distended normally with air insufflation. Direct and retroflexed views of the stomach were performed. There was nothing endoscopically to suggest gastroparesis or portal gastropathy. The mucosa of the gastric cardia, fundus, lesser curvature, incisura, body, and antrum appeared normal, without any gastric ulcers or gastric lesions. The pylorus was patent, without any gastric outlet obstruction or channel ulcer. The duodenal bulb, duodenal sweep, & third portion of the duodenum appeared normal, without any duodenal ulcers, distal ulcerations, or angiodysplasias. I was not able to see the ampulla with the direct-viewing scope. The folds of the second & third portions of the duodenum were normal in caliber, without any flattening, nodularity, scalloping, or mosaic pattern. In view of the metastatic disease noted in the liver and lungs on CT scan, random small bowel biopsies regarding the mild diarrhea were deferred. No active upper GI bleeding was seen. The patient tolerated the procedure well. Documenting photographs were obtained from above, and placed inside the patient's chart. After completing the preliminary baseline upper endoscopy to the third portion of the duodenum, baseline colonoscopy was attempted, initially with the Olympus high-definition adult video colonoscope, subsequently switched to the Olympus high-definition pediatric videocolonoscope, after obtaining informed consent from the patient, with the poultry barn manager and pulse oximeter, after 1 gallon of GoLYTELY, with the assistance of Dr. Sloan, of [facility]. The patient was maintained in the left lateral decubitus position. Direct views of the rectum failed to reveal any external hemorrhoids, fissures, or external perianal disease. Digital rectal exam revealed a rock hard 360, friable rectal lesion, which was easily palpable just past the dentate line. Sphincter tone was relatively normal. The adult colonoscope was inserted, and subsequently switch to the pediatric colonoscope. Gentle retroflexion was attempted, but not possible, due to the large rectal mass. The rectal mass extended at least 10 cm. It was friable, nodular, circumferential, & ulcerated, with necrotic tissue. It appeared to have a septated portion, with suggestion of possible internal fistulous tracts. The prep was extremely poor. There was residual tenacious thick liquid stool and solid stool, making visibility very poor. Both the adult video colonoscope and the pediatric video colonoscope were each advanced to 15 cm (rectosigmoid junction), at which point, solid stool prohibited further inspection. The colonic mucosa proximal to 15 cm could not be seen. The patient's "diarrhea" was probably from spurious loose stool that was overflowing past the partially obstructing low-lying rectal lesion. Upon exiting, biopsy 10 of the rectal mass were obtained: (Specimen A- probable colorectal CA). The patient tolerated both procedures well. She was told to expect some rectal bleeding postoperatively. Documenting photographs were obtained from below, and placed inside the patient's chart. Impression: 1. 2 cm sliding hiatal hernia pouch, from 36-30 cm. Z line at 38 cm. 2. Otherwise, normal EGD to the third portion of the duodenum. Ampulla not seen with the direct- viewing scope. Random small bowel biopsies deferred. 3. Circumferential, friable, 360, nodular, ulcerated, necrotic rectal lesion, starting just past the dentate line and extending 10 cm, grossly appearing malignant, with septated features and possible internal fistulous tracts. Biopsy 10: (Specimen A- probable colorectal Ca). Poor prepped 15 cm, with procedure terminated at the rectosigmoid junction due to solid stool, which could not be cleared, due to the partially obstructing low-lying rectal lesion. Recommendations: *At the patient's request, the above findings were discussed with the patient, the patient's 2 children (her daughter, Symone, and her son, Junior), in the GI suite postoperatively. They are all aware of the probable metastatic disease and probable primary rectal cancer. *Await results of 09/15/17: liver biopsy, per IR/oncology. *Await results of 09/16/17: rectal biopsies. The patient was told to expect some rectal bleeding postoperatively. *Advise checking CEA level: (09/16/17: *elevated CEA 19.4). Await iron studies. I advised a colorectal surgery consult, as the patient will need a diverting colostomy. Once she heals from the diverting colostomy, if aggressive treatment is desired, she will need CTX. As her rectum will be diverted, can probably forego RT, but will defer to oncology & CRS regarding this. I also personally spoke to Dr. Paulino, of oncology, Dr. Conde, of the hospitalist service, & Dr. Montoya, of CRS, who all concur. The patient and her family were told that the liver biopsy can take up to 2 weeks to return. They were told to contact the office for the rectal biopsy results within 2 weeks. The patient's daughter has our office number. The patient's children were told that they should have screening colonoscopies, in view of the family history (the patient's daughter had already had one). The patient was told that she could follow up with Dr. Fisher for GI as an outpatient, but that at the moment, there was nothing acute for the GI service to do. The patient and her family were made aware that the patient could potentially have a synchronous lesion in the proximal colon. However, in view of the metastatic disease, I doubt that a completion colonoscopy post diverting colostomy would change her management. Her main care should be directed by oncology & colorectal surgery. Further inpatient GI follow-up as needed. 09/15/17: LIVER, NEEDLE BIOPSY, PER IR: *POORLY DIFFERENTIATED CARCINOMA WITH EXTENSIVE NECROSIS. NOTE: *This case has been sent to [facility] for immunohistochemical stain analysis for possible primary sites, including colon. *This case was discussed with Dr. Conde on 09/16/17 at 11:30 AM. The liver bx was apparently rxd by Dr. Conde & performed by Dr. Destin Saha. Dictated by: Eliud Yuan MD ADDENDUM: 09/19/2017- A. RECTAL MASS, BIOPSY: *POORLY DIFFERENTIATED CARCINOMA. SENT TO [facility] FOR REVIEW, INCLUDING IMMUNOHISTOCHEMICAL STAIN WORK-UP. NOTE: This case was discussed with Dr. Conde on 09/19/17 at 11:10 AM. Dictated by: Eliud Yuan MD I contacted the pt 09/19/17 at 8:22 p.m. at her room 223-1 at [facility] & informed her & her son, Junior, of the poorly differentiated Ca on both the liver bx per IR/oncology, as well as on the rectal mass bxs. *Special stains for each are pending & were sent out to [facility]. I am also assuming [facility] will be checking for DNA mismatch repair deletions.09/16/17: *elevated CEA 19.4). 09/15/17: Fe studies were consistent with chronic disease (low Fe 18, low TIBC 161), with elevated ferritin 704 most likely an acute phase rx. I had advised a colorectal surgery consult, as the patient will need a diverting colostomy. Her "diarrhea " undoubtedly was an overflow phenomenon, from an impending obstructing rectal mass. The lesion is at the dentate line, and is too low to stent. The patient was seen by Dr. Montoya, and the case was discussed with him. Once she heals from the diverting colostomy, if aggressive treatment is desired, she will need CTX. Hopefully, her special stains from [facility] should be back by then. As her rectum will be diverted, can probably forego RT, but will defer to oncology & CRS regarding this. I also personally spoke to Dr. Paulino, of oncology, Dr. Conde, of the hospitalist service, & Dr. Montoya, of CRS, who all concur. The patient's daughter, Symone, has our office number. The patient's children were told that they should have screening colonoscopies, in view of the family history (the patient's daughter had already had one). The patient was told that she could follow up with Dr. Fisher for GI as an outpatient, but that at the moment, there was nothing acute for the GI service to do, as the current situation was being managed by oncology & CRS. The patient and her family were made aware that the patient could potentially have a synchronous lesion in the proximal colon. However, in view of the metastatic disease, I doubt that a completion colonoscopy post diverting colostomy would change her management. Her main care should be directed by oncology & colorectal surgery. Further inpatient GI follow-up as needed. Follow-up Colonscopy Screening probably no need for completion colonoscopy with anitra CC: Destin Montoya Jr., DO; Sheyla ALBARADO,Perico Harris; Sheyla ALBARADO,Keri Tee; Elton ALBARADO,Roya ; Yamilet Mobley APRN; Phillip ALBARADO,Jacey; Lora ALBARADO,[facility]
--- NOTE | 2017-09-16 19:17 | Cons- General Surgery ---
General Information and HPI Consulting Request Date of Consult: 09/16/17 Requested By: Elton ALBARADO,Roya Darby MD Reason for Consult: Metastatic rectal cancer with impending large bowel obstruction Source of Information: patient, family, old records Exam Limitations: no limitations History of Present Illness: This is a 76-year-old female. She has a family history significant for colon cancer but has never had a colonoscopy. She presented to the hospital several days ago with complaints of fatigue and shortness of breath. She admits to recent change in bowel function with chronic diarrhea. He also admits to increasing abdominal girth and abdominal discomfort. CT scan was performed of the chest abdomen and pelvis. This demonstrated evidence of widely metastatic cancer with numerous lesions in the lungs bilaterally and in the liver. Of note, colon demonstrates evidence of either constipation or partial obstruction with solid stool extending back to the cecum. She had a ultrasound guided percutaneous liver biopsy. This biopsy confirms presence of cancer with extensive necrosis. She had a upper and lower endoscopy earlier this morning. The colonoscopy was aborted secondary to a large mass involving the rectum and rectosigmoid of the at least partial obstruction. At this point I was consult and for discussion of possible diversion Allergies/Medications Allergies: Coded Allergies: shellfish derived (Intermediate, G.I. DISTRESS FROM SCALLOPS 09/14/17) Home Med List: Atorvastatin Calcium 40 MG TABLET 1 TAB PO DAILY CHOLESTROL (Reported) Empagliflozin (Jardiance) 10 MG TABLET 1 TAB PO EOD DM (Reported) Glimepiride 4 MG TABLET 1 TAB PO DAILY DM (Reported) Levothyroxine Sodium 25 MCG TABLET 1 TAB PO DAILY THYROID (Reported) Quinapril HCl 20 MG TABLET 1 TAB PO DAILY HTN (Reported) Sitagliptin Phos/Metformin HCl (Janumet 50-1,000 MG Tablet) 50 MG-1,000 MG TABLET 1 TAB PO BID DM (Reported) Current Medications: Current Medications Sig/Rose Start time Last Medication Dose Route Stop Time Status Admin Bisacodyl 10 MG ONCE ONE 09/15 2100 DC 09/15 PO 09/15 Chlorhexidine 1 GM .STK-MED ONE 09/16 1047 DC Gluconate TOP 09/16 1048 Heparin Sodium 5,000 UNIT Q8 09/14 2200 AC 09/16 (Porcine) SC 1311 Insulin Aspart 0 TIDAC 09/15 0800 AC 09/16 SC 1756 Levothyroxine Sodium 0.025 MG DAILY 09/15 1000 AC 09/16 PO 1021 Lisinopril 5 MG DAILY 09/15 1000 AC 09/16 PO 1021 Magnesium Oxide 400 MG 1330 09/16 1330 DC 09/16 PO 09/16 1331 1755 Polyethylene Glycol 0.5 GAL ONCE ONE 09/16 0400 DC 09/16 PO 09/16 0401 0405 Sodium Chloride 1,000 ML Q20H 09/14 204 AC 09/16 IV 1311 Past History Medical History Blood Transfusion Hx: No Cardiovascular: CAD (s/p stents), hypertension, hyperlipidemia, HEART MURMUR Endocrine: diabetes, hypothyroidism, obesity Surgical History Pertinent Surgical History: non-contributory Family History Relations & Conditions If Any: FATHER Relation not specified for: FH: heart disease Psychosocial History Where Do You Live? Home Who Do You Live With? self Services at Home: None Primary Language: Kazakh Smoking Status: Former Smoker ETOH Use: denies use Illicit Drug Use: denies illicit drug use Functional Ability ADLs Independent: dressing, eating, toileting, bathing. Ambulation: independent IADLs Independent: shopping, housework, finances, telephone, medication admin. Review of Systems Review of Systems: Weakness, fatigue, range in bowel function, new constant diarrhea, increased in abdominal girth, vague abdominal pain Review of Systems Constitutional: Reports: weakness. Respiratory: Reports: short of breath. GI: Reports: bloating, diarrhea, distention, changes in stool. Exam & Diagnostic Data Vital Signs and I&O Vital Signs Date Time Temp Pulse Resp B/P B/P Pulse O2 O2 Flow FiO2 Mean Ox Delivery Rate 09/16 1021 70 142/58 09/16 0638 98.0 97 20 120/64 95 Room Air 09/15 2246 99.1 94 20 144/60 96 Room Air Intake & Output 09/16 1600 09/16 0800 09/16 0000 09/15 1600 09/15 0800 09/15 0000 Intake Total 800 1900 1950 240 400 390 Output Total 1 300 251 Balance 800 1900 1949 -60 149 390 Intake, IV 400 350 400 150 Intake, Oral 800 1500 1600 240 240 Number 3 7 3 1 2 2 Bowel Movements Output, Stool 1 1 Output, Urine 300 250 Patient 185 lb 185 lb 187 lb 187 lb Weight Weight Bed scale Measurement Method Physical Exam: Elderly female sitting upright in bed No acute distress Mucous membranes are moist Sclerae are nonicteric Abdomen is obese, globally uncomfortable with palpation but no point tenderness. No abnormal masses or hernias Extremities are warm and well-perfused Neuro he is awake alert and oriented 3, nerves II through XII are grossly intact, she appears nonfocal moves all extremities to medically Physical Exam General Appearance: no apparent distress, alert, awake, comfortable Head: atraumatic, normal appearance Eyes: Bilateral: normal appearance, pale conjunctivae. Gastrointestinal: soft Extremities: normal inspection Neurologic/Psych: awake, alert, oriented x 3 Assessment/Plan Assessment/Plan This is a 76-year-old female with widely metastatic cancer. Rectal cancer appears to be the primary site but pathology is still pending. Per colonoscopy report and my discussion with GI she appears to have impending large bowel obstruction. She has symptoms and findings catheter which supports this. Recommendation: Follow-up pathology Appears to me that the patient would benefit from laparoscopic diverting colostomy to prevent progression to large bowel obstruction I will discuss the patient further with medical oncology Consult Acknowledgment - Thank you for your consult request.
[2017-09-16 22:14] VITALS: BP 138/60
[2017-09-17 06:20] VITALS: BP 156/90
--- NOTE | 2017-09-17 08:16 | PN- Housestaff ---
Yuni ALBARADO,[facility] 09/17/17 0815: Subjective Follow-up For: Rectal cancer with liver and pulmonary metastasis Complaints: no complaints Subjective: Patient has no complaints this morning. She denies abdominal pain, nausea vomiting, or diarrhea. She had a normal bowel movement yesterday. She denies fever, chills. She denies shortness of breath cough. She denies chest pain palpitations. Review of Systems Constitutional: Denies: chills, fever, weakness. Objective Last 24 Hrs of Vital Signs/I&O Vital Signs Date Time Temp Pulse Resp B/P B/P Pulse O2 O2 Flow FiO2 Mean Ox Delivery Rate 09/17 0620 99.8 103 18 156/90 96 Room Air 09/16 2214 99.5 94 18 138/60 95 Room Air 09/16 1021 70 142/58 Intake & Output 09/17 1600 09/17 0800 09/17 0000 Intake Total 400 200 Output Total 250 Balance 150 200 Intake, IV 400 Intake, Oral 200 Number 3 Bowel Movements Output, Urine 250 Patient 190 lb Weight Weight Bed scale Measurement Method Physical Exam General Appearance: Alert, Oriented X3, Cooperative, No Acute Distress Skin: No Rashes Skin Temp/Moisture Exam: Warm/Dry Sepsis Skin Exam (color): Normal for Ethnicity HEENT: Atraumatic, PERRLA, EOMI, Mucous Membr. moist/pink Neck: Supple, No JVD, No thryomegaly Lymphatic: Cervical nl Cardiovascular: Regular Rate, Normal S1, Normal S2, No Murmurs Lungs: Clear to Auscultation, Normal Air Movement Abdomen: Normal Bowel Sounds, Soft, No Tenderness, No Hepatospenomegaly, No Masses Neurological: Normal Speech, Normal Tone Extremities: No Clubbing, No Cyanosis, Normal Pulses, +1 pitting pedal edema bilaterally Current Medications: Current Medications Sig/Rose Start time Last Medication Dose Route Stop Time Status Admin Chlorhexidine 1 GM .STK-MED ONE 09/16 1047 DC Gluconate TOP 09/16 1048 Heparin Sodium 5,000 UNIT Q8 09/14 2200 AC 09/17 (Porcine) SC 0539 Insulin Aspart 0 TIDAC 09/15 0800 AC 09/16 SC 1756 Levothyroxine Sodium 0.025 MG DAILY 09/15 1000 AC 09/16 PO 1021 Lisinopril 5 MG DAILY 09/15 1000 AC 09/16 PO 1021 Magnesium Oxide 400 MG 1330 09/16 1330 DC 09/16 PO 09/16 1331 1755 Sodium Chloride 1,000 ML Q20H 09/14 204 AC 09/16 IV 1311 Last 24 Hrs of Lab/Tha Results Last 24 Hrs of Labs/Mics: Laboratory Tests 09/17/17 0655: Sodium Pending, Potassium Pending, Chloride Pending, Carbon Dioxide Pending, Anion Gap Pending, BUN Pending, Creatinine Pending, BUN/Creatinine Ratio Pending , CBC w Diff Pending, WBC Pending, RBC Pending, Hgb Pending, Hct Pending, MCV Pending, MCH Pending, MCHC Pending, RDW Pending, Plt Count Pending, MPV Pending Assessment/Plan Assessment: 76-year-old female past medical history of diabetes, coronary artery disease status post stent in 2006, hypothyroidism, hypertension, urolithiasis presents for evaluation of weakness, altered bowel habits, shortness of breath. Patient is admitted to general medical floor for further evaluation and management. Assessment and plan 1. Multiple metastasis in the chest and the liver - probably secondary to rectal mass/cancer * Patient had rectal mass biopsy during colonoscopy yesterday by rn complex care * She is being reviewed by colorectal surgeon Dr. Montoya for possible diverting colostomy * Will await Dr. roblero discussion with router operator pin is Dr. Melgar * Disposition planning based on their discussion if patient will have surgery as an inpatient or if patient can be discharged to pursue outpatient chemotherapy prior to surgery * Follow-up final pathology results from liver and rectal biopsies 2.Chronic medical condition -multinodular goiter, hypertension, type 2 diabetes - * We will continue levothyroxine, lisinopril, Fingerstick 4 times daily/HS * NovoLog according to the sliding scale * Fingerstick this morning are within acceptable range with fasting glucose 125 * DC IV fluids as patient is eating a Diet -full liquid diet-please advance to regular diet if no plans for surgery today DVT prophylaxis -heparin 5000 subcutaneous every 8 hours CODE STATUS -full cod Problem List: 1. Rectal mass 2. Multiple lesions of metastatic malignancy Pain Ratin Pain Location: None Pain Goal: Remain pain free Pain Plan: Local modalities if needed Tomorrow's Labs & Rationales: CBC and BEP for preoperative assessment DVT/Prophylaxis: pharmacological Ervin ALBARADO,Laquita 09/17/17 1239: Attending MD Review Statement Attending Statement Attending MD Statement: examined this patient, discuss w/resident/PA/ELECTROLESS PLATER, agreed w/resident/PA/ELECTROLESS PLATER, discussed with family, reviewed EMR data (avail), discussed with nursing, reviewed images, amended to note Attending Assessment/Plan: Patient seen and examined, claims that she's feeling lousy. She says feeling very weak. She has this pain in her buttocks. She slightly tachycardic but otherwise vital signs are stable. on exam; aox3, nad. cv; s1,s2, rrr resp; clear abd; soft, bs+ ext; 1+ edema; Laboratory Tests 09/17 0655 Chemistry Sodium (137 - 145 mmol/L) 133 L Potassium (3.5 - 5.1 mmol/L) 3.0 L Chloride (98 - 107 mmol/L) 98 Carbon Dioxide (22 - 30 mmol/L) 27 Anion Gap (5 - 16) 8 BUN (7 - 17 mg/dL) 6 L Creatinine (0.5 - 1.0 mg/dL) 0.4 L Estimated GFR (>60 ml/min) > 60 BUN/Creatinine Ratio (7 - 25 %) 15.0 Hematology CBC w Diff NO MAN DIFF REQ WBC (4.8 - 10.8 /CUMM) 17.0 H RBC (4.20 - 5.40 /CUMM) 3.62 L Hgb (12.0 - 16.0 G/DL) 8.2 L Hct (37 - 47 %) 26.4 L MCV (81.0 - 99.0 FL) 72.8 L MCH (27.0 - 31.0 PG) 22.7 L MCHC (33.0 - 37.0 G/DL) 31.2 L RDW (11.5 - 14.5 %) 20.7 H Plt Count (130 - 400 /CUMM) 350 MPV (7.4 - 10.4 FL) 6.7 L Gran % (42.2 - 75.2 %) 77.2 H Lymphocytes % (20.5 - 51.1 %) 10.5 L Monocytes % (1.7 - 9.3 %) 11.8 H Eosinophils % (0 - 5 %) 0.3 Basophils % (0.0 - 2.0 %) 0.2 Absolute Granulocytes (1.4 - 6.5 /CUMM) 13.1 H Absolute Lymphocytes (1.2 - 3.4 /CUMM) 1.8 Absolute Monocytes (0.10 - 0.60 /CUMM) 2.0 H Absolute Eosinophils (0.0 - 0.7 /CUMM) 0 Absolute Basophils (0.0 - 0.2 /CUMM) 0 A/P; 76-year-old female past medical history of diabetes, coronary artery disease status post stent in 2006, hypothyroidism, hypertension, urolithiasis admitted with generalized weakness, altered bowel habits and found to metastatic disease likely secondary to rectal mass. Patient also has leukocytosis and anemia. Has been evaluated by colorectal surgery Destin Montoya DO. He plans to discuss further with oncologist and come up with a plan for possible surgery laparoscopic diverting colostomy to prevent progression to large bowel obstruction. Please replete potassium and continue the rest of the management. Discussed the patient's daughter at bedside.
[2017-09-17 08:45] LABS: ABSOLUTE BASOPHIL COUNT 0 /CUMM (0.0-0.2); ABSOLUTE EOSINOPHIL COUNT 0 /CUMM (0.0-0.7); ABSOLUTE GRANULOCYTE CT 13.1 /CUMM (1.4-6.5); ABSOLUTE LYMPH COUNT 1.8 /CUMM (1.2-3.4); BASOPHIL % 0.2 % (0.0-2.0); EOSINOPHIL % 0.3 % (0-5); GRANULOCYTE % 77.2 % (42.2-75.2); HEMATOCRIT 26.4 % (37-47); MEAN CORPUSCULAR HGB 22.7 PG (27.0-31.0); MEAN CORPUSCULAR HGB CONC 31.2 G/DL (33.0-37.0); MEAN CORPUSCULAR VOLUME 72.8 FL (81.0-99.0); MEAN PLATELET VOLUME 6.7 FL (7.4-10.4); PLATELET COUNT 350 /CUMM (130-400); RBC DISTRIBUTION WIDTH 20.7 % (11.5-14.5); RED BLOOD CELL CT 3.62 /CUMM (4.20-5.40)
[2017-09-17 14:53] VITALS: BP 148/80
[2017-09-17 22:34] VITALS: BP 154/60
[2017-09-18 06:20] VITALS: BP 146/58
[2017-09-18 08:16] LABS: ABSOLUTE BASOPHIL COUNT 0.1 /CUMM (0.0-0.2); ABSOLUTE EOSINOPHIL COUNT 0 /CUMM (0.0-0.7); ABSOLUTE GRANULOCYTE CT 12.6 /CUMM (1.4-6.5); ABSOLUTE LYMPH COUNT 2.4 /CUMM (1.2-3.4); ABSOLUTE MONOCYTE COUNT 1.9 /CUMM (0.10-0.60); BASOPHIL % 0.4 % (0.0-2.0); EOSINOPHIL % 0.1 % (0-5); GRANULOCYTE % 74.1 % (42.2-75.2); HEMATOCRIT 26.5 % (37-47); MEAN CORPUSCULAR HGB 23.1 PG (27.0-31.0); MEAN CORPUSCULAR HGB CONC 31.5 G/DL (33.0-37.0); MEAN CORPUSCULAR VOLUME 73.4 FL (81.0-99.0); PLATELET COUNT 315 /CUMM (130-400); RED BLOOD CELL CT 3.61 /CUMM (4.20-5.40); WHITE BLOOD CELL COUNT 17.1 /CUMM (4.8-10.8)
--- NOTE | 2017-09-18 08:28 | PN- Housestaff ---
Subjective Follow-up For: Colorectal mass Complaints: decreased appetite Subjective: Patient seen and examined at bedside. Patient sitting in her bed comfortably. No overnight events. She complains of decreased appetite. She denies chest pain, chest pressure, nausea, vomiting, abdominal pain. She would like to discuss her further plan with her family members today. Review of Systems Constitutional: Reports: see HPI. Objective Last 24 Hrs of Vital Signs/I&O Vital Signs Date Time Temp Pulse Resp B/P B/P Pulse O2 O2 Flow FiO2 Mean Ox Delivery Rate 09/18 1006 92 144/58 09/18 0800 Room Air 09/18 0620 98.9 96 20 146/58 96 Room Air 09/17 2234 99.6 106 20 154/60 97 Room Air 09/17 1600 96 Room Air 09/17 1453 98.3 89 18 148/80 97 Intake & Output 09/18 1600 09/18 0800 09/18 0000 Intake Total 400 100 Output Total 500 276 Balance -100 -176 Intake, IV 400 Intake, Oral 100 Number 3 Bowel Movements Output, Stool 1 Output, Urine 500 275 Patient 201 lb Weight Weight Bed scale Measurement Method Physical Exam General Appearance: Alert, Oriented X3, Cooperative, No Acute Distress Cardiovascular: Regular Rate, Normal S1, Normal S2, No Murmurs Lungs: Clear to Auscultation, Normal Air Movement Abdomen: Soft, No Tenderness, mild hepatomegaly Neurological: Strength at 5/5 X4 Ext, Normal Tone, Sensation Intact Current Medications: Current Medications Sig/Rose Start time Last Medication Dose Route Stop Time Status Admin Heparin Sodium 5,000 UNIT Q8 09/14 2200 AC 09/18 (Porcine) SC 1311 Insulin Aspart 0 TIDAC 09/15 0800 AC 09/18 SC 1217 Levothyroxine Sodium 0.025 MG DAILY 09/15 1000 AC 09/18 PO 1015 Lisinopril 5 MG DAILY 09/15 1000 AC 09/18 PO 1006 Sodium Chloride 1,000 ML Q20H 09/14 2045 AC 09/18 IV 1340 Last 24 Hrs of Lab/Tha Results Last 24 Hrs of Labs/Mics: Laboratory Tests 09/18/17 0715: Anion Gap 9, Estimated GFR > 60, BUN/Creatinine Ratio 12.5, CBC w Diff NO MAN DIFF REQ, RBC 3.61 L, MCV 73.4 L, MCH 23.1 L, MCHC 31.5 L, RDW 21.0 H, MPV 7.0 L, Gran % 74.1, Lymphocytes % 14.1 L, Monocytes % 11.3 H, Eosinophils % 0.1, Basophils % 0.4, Absolute Granulocytes 12.6 H, Absolute Lymphocytes 2.4, Absolute Monocytes 1.9 H, Absolute Eosinophils 0, Absolute Basophils 0.1 Assessment/Plan Assessment: 1. Multiple metastasis in the chest and the liver -possible colorectal primary Patient is having leukocytosis, thrombocytosis, lactic acidosis [resolved]. Patient has multiple metastasis to liver and lung. Patient was seen by oncologist, colorectal surgeon and junior assistant manager. Liver biopsy taken- preliminary report shows poorly differentiated carcinoma. Awaiting final report. Patient had colonoscopy with biopsy. Reports will be back in 2 weeks. Patient was seen by colorectal surgeon who suggested Who suggested possible surgery laparoscopic diverting colostomy. Our medical team had an extensive discussion with the patient's family. The patient today wants to discuss about further plan with the family members today. Awaiting oncology follow-up. 2.Chronic medical condition -multinodular goiter, hypertension, type 2 diabetes - * We will continue levothyroxine, lisinopril, Fingerstick 4 times daily/HS * NovoLog according to the sliding scale. Diet - regular diet DVT prophylaxis -heparin 5000 subcutaneous every 8 hours CODE STATUS -full cod Problem List: 1. Rectal mass 2. Microcytic anemia Pain Ratin Pain Location: none Pain Goal: Remain pain free Pain Plan: tylenol Tomorrow's Labs & Rationales: cbc,bep
--- NOTE | 2017-09-18 10:42 | PN- General Surgery ---
Surgical Brief Attending Note Brief Attending Note: No change in clinical status Pt is moving bowels in frequent small amounts Will discuss patient with oncology in AM discusse treatment paln
--- NOTE | 2017-09-18 12:29 | PN- Att Addend ---
Attending Addendum Attending Brief Note Patient seen and examined, claims that she's feeling better today. Vital Signs Date Time Temp Pulse Resp B/P B/P Pulse O2 O2 Flow FiO2 Mean Ox Delivery Rate 09/18 1006 92 144/58 09/18 0800 Room Air 09/18 0620 98.9 96 20 146/58 96 Room Air 09/17 2234 99.6 106 20 154/60 97 Room Air 09/17 1600 96 Room Air 09/17 1453 98.3 89 18 148/80 97 on exam; aox3, nad. cv; s1,s2, rrr resp; clear abd; soft, bs+ ext; 1+ edema; Laboratory Tests 09/18 0715 Chemistry Sodium (137 - 145 mmol/L) 134 L Potassium (3.5 - 5.1 mmol/L) 3.3 L Chloride (98 - 107 mmol/L) 99 Carbon Dioxide (22 - 30 mmol/L) 27 Anion Gap (5 - 16) 9 BUN (7 - 17 mg/dL) 5 L Creatinine (0.5 - 1.0 mg/dL) 0.4 L Estimated GFR (>60 ml/min) > 60 BUN/Creatinine Ratio (7 - 25 %) 12.5 Hematology CBC w Diff NO MAN DIFF REQ WBC (4.8 - 10.8 /CUMM) 17.1 H RBC (4.20 - 5.40 /CUMM) 3.61 L Hgb (12.0 - 16.0 G/DL) 8.3 L Hct (37 - 47 %) 26.5 L MCV (81.0 - 99.0 FL) 73.4 L MCH (27.0 - 31.0 PG) 23.1 L MCHC (33.0 - 37.0 G/DL) 31.5 L RDW (11.5 - 14.5 %) 21.0 H Plt Count (130 - 400 /CUMM) 315 MPV (7.4 - 10.4 FL) 7.0 L Gran % (42.2 - 75.2 %) 74.1 Lymphocytes % (20.5 - 51.1 %) 14.1 L Monocytes % (1.7 - 9.3 %) 11.3 H Eosinophils % (0 - 5 %) 0.1 Basophils % (0.0 - 2.0 %) 0.4 Absolute Granulocytes (1.4 - 6.5 /CUMM) 12.6 H Absolute Lymphocytes (1.2 - 3.4 /CUMM) 2.4 Absolute Monocytes (0.10 - 0.60 /CUMM) 1.9 H Absolute Eosinophils (0.0 - 0.7 /CUMM) 0 Absolute Basophils (0.0 - 0.2 /CUMM) 0.1 A/P; 76-year-old female past medical history of diabetes, coronary artery disease status post stent in 2006, hypothyroidism, hypertension, urolithiasis admitted with generalized weakness, altered bowel habits and found to metastatic disease likely secondary to rectal mass. Patient also has leukocytosis and anemia. Has been evaluated by colorectal surgery Destin Montoya DO. He plans to discuss further with oncologist and come up with a plan for possible surgery laparoscopic diverting colostomy to prevent progression to large bowel obstruction. Please replete potassium and continue the rest of the management.
[2017-09-18 15:06] VITALS: BP 146/72
[2017-09-18 22:08] VITALS: BP 140/60
[2017-09-19 06:20] VITALS: BP 158/70
--- NOTE | 2017-09-19 07:36 | PN- Housestaff ---
Neri ALBARADO,Flaquita 09/19/17 0736: Subjective Follow-up For: Colorectal mass possible metastasis to liver and lung. Complaints: no complaints Subjective: Patient seen and examined at bedside. She was sitting comfortably in her chair. She complains of pain in her buttock due to frequent bowel movements. Review of Systems Constitutional: Reports: see HPI. Objective Last 24 Hrs of Vital Signs/I&O Vital Signs Date Time Temp Pulse Resp B/P B/P Pulse O2 O2 Flow FiO2 Mean Ox Delivery Rate 09/19 0855 100 158/62 09/19 0800 Room Air 09/19 0620 98.4 97 20 158/70 95 Room Air 09/18 2208 98.1 90 20 140/60 96 09/18 1506 98.0 99 20 146/72 95 Intake & Output 09/19 1600 09/19 0800 09/19 0000 Intake Total 012 099 6808 Output Total 1000 600 Balance 560 -600 400 Intake, IV 200 400 400 Intake, Oral 360 600 Number 4 6 2 Bowel Movements Output, Urine 1000 600 Patient 199 lb Weight Weight Bed scale Measurement Method Physical Exam General Appearance: Alert, Oriented X3, Cooperative, No Acute Distress Cardiovascular: Regular Rate, Normal S1, Normal S2, No Murmurs Lungs: Clear to Auscultation Abdomen: Soft, No Tenderness, No Hepatospenomegaly Extremities: No Edema Current Medications: Current Medications Sig/Rose Start time Last Medication Dose Route Stop Time Status Admin Acetaminophen 650 MG Q4P PRN 09/19 1100 AC 09/19 PO 1116 [place] Butter/Shark 1 BROWN BID 09/19 1047 AC 09/19 Liver Oil TOP 1123 Heparin Sodium 5,000 UNIT Q8 09/14 220 AC 09/19 (Porcine) SC 1430 Insulin Aspart 0 TIDAC 09/15 0800 AC 09/19 SC 1249 Levothyroxine Sodium 0.025 MG DAILY 09/15 1000 AC 09/19 PO 0855 Lisinopril 5 MG DAILY 09/15 1000 AC 09/19 PO 0855 Potassium Chloride 40 MEQ AT BEDTIME 09/19 2200 AC PO Potassium Chloride 60 MEQ ONCE ONE 09/19 0745 DC 09/19 PO 09/19 0746 0854 Potassium Chloride 40 MEQ ONCE ONE 09/18 1615 DC 09/18 PO 09/18 1616 1626 Sodium Chloride 1,000 ML Q20H 03/21 2045 AC 09/19 IV 0546 Zinc Oxide 1 BROWN BID 09/19 1031 09/19 [facility] 1123 Assessment/Plan Assessment: 76-year-old female past medical history of diabetes, coronary artery disease status post stent in 2006, hypothyroidism, hypertension, urolithiasis presents for evaluation of weakness, altered bowel habits, shortness of breath. Patient is admitted to general medical floor for further evaluation and management. 1. Multiple metastasis in the chest and the liver -colorectal mass Patient is having colorectal mass with multiple metastasis to liver and lung. Patient was seen by oncologist, colorectal surgeon and automation architect. Dr. Montoya saw the patient today and discussed with the family regarding laparoscopic diverting stoma. Patient family agreed for surgery. She is plan for surgery on morning. Until then patient will be on low fiber diet. Liver and colon biopsy taken-preliminary report shows poorly differentiated carcinoma. Awaiting final report. Patient had colonoscopy with biopsy. Our medical team had an extensive discussion with the patient's family. Pt and her family agreed with the plan. Resident and attending by the bedside. Patient family would like to talk to the oncologist. The same information relyed to the oncologist. 2.Chronic medical condition -multinodular goiter, hypertension, type 2 diabetes - * We will continue levothyroxine, lisinopril, Fingerstick 4 times daily/HS * NovoLog according to the sliding scale. Diet -low fiber diet DVT prophylaxis -heparin 5000 subcutaneous every 8 hours CODE STATUS -full code Physical therapy-patient evaluated by physical therapy and suggested short-term rehabilitation. Case management aware Problem List: 1. Metastases to the liver 2. Rectal mass Pain Ratin Pain Location: none Pain Goal: Remain pain free Pain Plan: tylenol Tomorrow's Labs & Rationales: cbc,bep Roya Conde 09/19/17 1134: Attending MD Review Statement Attending Statement Attending MD Statement: examined this patient, discuss w/resident/PA/CASE ADVOCATE, agreed w/resident/PA/CASE ADVOCATE, discussed with family, reviewed EMR data (avail), discussed with nursing, discussed with case mgmt, reviewed images, amended to note Attending Assessment/Plan: 76 o/f is admitted with abnornal nodules in liver and lung with h/o weight loss and loss of appetitie concerning for metastatic disease. Hem/onc, CRS and GI consulted. S/P EGD/colonoscopy suggestive of bulky tumor in rectum. Rectal mass biopsy s/o poorly differentiated carcinoma. Oncology did recommend IR guided biopsy from liver tissue which patient underwent without any complications suggestive of Poorly differentiated carcinoma. Inform oncology. f/u final results sent to [place]. (primary appears to be rectum) GI recommned [place]-rectal surgery consult and plan for diverting colostomy with chemotherapy in future. Anemia of chronic disease/malignacny h/h stable. Family wants to pursue colostomy for impending obstruction.
--- NOTE | 2017-09-19 08:02 | PN- Oncology ---
Subjective Subjective: She is doing relatively well. She has not work much with physical therapy. She has seen Dr. Montoya. Review of Systems Constitutional: Reports: weakness. Denies: chills, fever. Cardiovascular: Denies: chest pain. Gastrointestinal: Denies: abdominal pain. Musculoskeletal: Denies: back pain. Neurological/Psychological: Denies: ataxia, confusion. Hematologic/Endocrine: Denies: bruising, bleeding. All Other Systems: Reviewed and Negative Objective Vital Signs and I&Os Vital Signs Date Time Temp Pulse Resp B/P B/P Pulse O2 O2 Flow FiO2 Mean Ox Delivery Rate 09/20 619 98.4 97 20 158/70 95 Room Air 09/18 2208 98.1 90 20 140/60 96 09/18 1506 98.0 99 20 146/72 95 09/18 1006 92 144/58 09/18 0800 Room Air Intake & Output 09/19 0800 09/19 0000 09/18 1600 09/18 0800 09/18 0000 09/17 1600 Intake Total 400 1000 360 400 100 880 Output Total 1000 600 500 276 Balance -600 400 360 -100 -176 880 Intake, IV 400 400 400 400 Intake, Oral 600 360 100 480 Number 6 2 1 3 3 Bowel Movements Output, Stool 1 Output, Urine 1000 600 500 275 Patient 90.435 kg 91.314 kg Weight Weight Bed scale Bed scale Measurement Method Physical Exam General Appearance: well developed/nourished, no apparent distress, alert, awake , comfortable, obese Head: normal appearance Respiratory: normal breath sounds, chest non-tender, no respiratory distress Cardiovascular: regular rate/rhythm Abdomen: normal bowel sounds, soft, non-tender Extremities: no edema Neurologic/Psychiatric: awake, alert, oriented x 3 Skin: warm/dry Current Medications: Current Medications Sig/Rose Start time Last Medication Dose Route Stop Time Status Admin Heparin Sodium 5,000 UNIT Q8 09/14 2199 AC 09/19 (Porcine) SC 0545 Insulin Aspart 0 TIDAC 09/15 0800 AC 09/18 SC 1217 Levothyroxine Sodium 0.025 MG DAILY 09/15 1000 AC 09/18 PO 1015 Lisinopril 5 MG DAILY 09/15 1000 AC 09/18 PO 1006 Potassium Chloride 40 MEQ AT BEDTIME 09/19 2199 AC PO Potassium Chloride 60 MEQ ONCE ONE 09/19 0745 DC PO 03/26 0746 Potassium Chloride 40 MEQ ONCE ONE 09/18 1615 DC 09/18 PO 09/18 1616 1626 Potassium Chloride 40 MEQ ONCE ONE 09/18 1400 DC 09/18 PO 09/18 1401 1421 Sodium Chloride 1,000 ML Q20H 09/14 2044 AC 09/19 IV 0546 Assessment/Plan Assessment/Recommendations: Ms. Russo is a 76-year-old female with DM, HTN, hypothyroidism, and CAD s/ p stent in 2006 who presented to the [facility] with severe months of weakness, dyspnea, and difficulty walking due to weakness. On presentation, she is noted to have microcytic anemia, leukocytosis, and thrombocytosis. Leukocytosis and thrombocytosis are likely reactive. Iron studies demonstrated anemia of chronic disease. CTA of the chest, abdomen, and pelvis demonstrated liver and lung lesions concerning for metastatic disease. She has never had colonoscopy done. She has underwent liver biopsy and noted poorly differentiated carcinoma. Colonoscopy demonstrated rectal mass. There is concern for possible pending obstruction. Dr. Montoya has seen patient and suggest possible diverting colostomy. I will discuss with Dr. Montoya regarding timing of intervention. 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 Problem List: 1. Rectal mass 2. Microcytic anemia 3. Malnutrition 4. Metastases to the liver
--- NOTE | 2017-09-19 10:49 | PN- General Surgery ---
Surgical Brief Attending Note Brief Attending Note: Discussed this morning with GI and medical oncology It is our impression that the patient has impending large bowel obstruction from her rectal mass. Our plan is to proceed with laparoscopic diverting stoma. This will not likely delay her chemotherapy by much as I usually allow chemotherapy 2 weeks following the procedure. Patient is having some rectal symptoms likely related to the tumor I will have her presented at the tumor board for discussion of possible palliative pelvic radiation We will try to get her surgery scheduled within the next day or 2 She will transfer to the surgical service on the day of surgery Her postop stay should be between 2-5 days Patient couldn't be advanced to a low fiber diet until we have a date secured for her surgery
[2017-09-19 14:49] VITALS: BP 132/70
[2017-09-19 22:50] VITALS: BP 144/74
[2017-09-20 06:58] VITALS: BP 122/70
--- NOTE | 2017-09-20 07:14 | PN- Housestaff ---
Neri ALBARADO,Flaquita 09/20/17 0714: Subjective Follow-up For: rectal mass with metastasis to liver and lung. Complaints: no complaints Subjective: Patient seen and examined at bedside. She was lying in her bed comfortably. She has no complaints. She denies chest pain, abdominal pain, nausea, vomiting. Review of Systems Constitutional: Reports: see HPI. Objective Last 24 Hrs of Vital Signs/I&O Vital Signs Date Time Temp Pulse Resp B/P B/P Pulse O2 O2 Flow FiO2 Mean Ox Delivery Rate 09/20 0826 94 140/70 09/20 0815 Room Air 09/20 0800 Room Air 09/20 0658 97.6 96 20 122/70 96 Room Air 09/20 0658 97.5 117 24 122/70 96 Nasal 2.0L Cannula 09/19 2250 98.1 93 20 144/74 97 Room Air 09/19 1601 Room Air 09/19 1449 98.0 95 20 132/70 97 Intake & Output 09/20 1600 09/20 0800 09/20 0000 Intake Total 300 300 Output Total 300 400 Balance 0 -100 Intake, Oral 300 300 Output, Urine 300 400 Patient 200 lb Weight Weight Bed scale Measurement Method Physical Exam General Appearance: Alert, Oriented X3, Cooperative Cardiovascular: Regular Rate, Normal S1, Normal S2, No Murmurs Lungs: Normal Air Movement Abdomen: Soft, No Tenderness, No Hepatospenomegaly Neurological: Normal Speech, Strength at 5/5 X4 Ext, Normal Tone, Sensation Intact Extremities: No Cyanosis, No Edema, Normal Pulses Current Medications: Current Medications Sig/Rose Start time Last Medication Dose Route Stop Time Status Admin Acetaminophen 650 MG .STK-MED ONE 09/20 0122 DC PO 09/20 0123 Acetaminophen 650 MG Q4P PRN 09/19 1100 AC 09/20 PO 0819 [place] Butter/Shark 1 BROWN BID 09/19 1047 AC 09/20 Liver Oil TOP 0829 Heparin Sodium 5,000 UNIT Q8 09/14 220 AC 09/20 (Porcine) SC 0606 Insulin Aspart 0 TIDAC 09/15 0800 AC 09/20 SC 1151 Levothyroxine Sodium 0.025 MG DAILY 09/15 1000 AC 09/20 PO 0819 Lisinopril 5 MG DAILY 09/15 1000 AC 09/20 PO 0826 Potassium Chloride 40 MEQ AT BEDTIME 09/19 2200 DC PO Potassium Chloride 40 MEQ AT BEDTIME 09/19 2200 AC 09/19 PO 2139 Sodium Chloride 1,000 ML Q20H 09/145 09/19 IV 0546 Zinc Oxide 1 BROWN BID 09/19 1031 09/20 TOP 0829 Last 24 Hrs of Lab/Tha Results Last 24 Hrs of Labs/Mics: Laboratory Tests 09/20/17 0705: Anion Gap 7, Estimated GFR > 60, BUN/Creatinine Ratio 15.0, Magnesium 1.4 L, CBC w Diff NO MAN DIFF REQ, RBC 3.68 L, MCV 73.5 L, MCH 23.0 L, MCHC 31.3 L, RDW 21.2 H, MPV 6.9 L, Gran % 77.0 H, Lymphocytes % 12.9 L, Monocytes % 9.6 H, Eosinophils % 0.4, Basophils % 0.1, Absolute Granulocytes 12.6 H, Absolute Lymphocytes 2.1, Absolute Monocytes 1.6 H, Absolute Eosinophils 0.1, Absolute Basophils 0 Assessment/Plan Assessment: 76-year-old female past medical history of diabetes, coronary artery disease status post stent in 2006, hypothyroidism, hypertension, urolithiasis presents for evaluation of weakness, altered bowel habits, shortness of breath. Patient is admitted to general medical floor for further evaluation and management. 1. Multiple metastasis in the chest and the liver -colorectal mass Patient is having colorectal mass with multiple metastasis to liver and lung. Patient was seen by oncologist, colorectal surgeon and benzene worker. Dr. Montoya saw the patient today and discussed with the family regarding laparoscopic diverting stoma. Patient family agreed for surgery. She is plan for surgery on morning. Until then patient will be on low fiber diet. Liver and colon biopsy taken-preliminary report shows poorly differentiated carcinoma. Awaiting final report. Patient had colonoscopy with biopsy. Our medical team had an extensive discussion with the patient's family regarding diverting stoma and possible radiation/chemotherapy. Pt and her family agreed with the plan. Resident and attending by the bedside. 2.Chronic medical condition -multinodular goiter, hypertension, type 2 diabetes - * We will continue levothyroxine, lisinopril, Fingerstick 4 times daily/HS * NovoLog according to the sliding scale. Diet -low fiber diet DVT prophylaxis -heparin 5000 subcutaneous every 8 hours CODE STATUS -full code Physical therapy-patient evaluated by physical therapy and suggested short-term rehabilitation. Patient will be going to short-term rehabilitation today. Patient family agreed with the plan. Problem List: 1. Metastases to the liver 2. Rectal mass Pain Ratin Pain Location: none Pain Goal: Remain pain free Pain Plan: tylenol Tomorrow's Labs & Rationales: cbc,bep Roya Conde 09/20/17 1109: Attending MD Review Statement Attending Statement Attending MD Statement: examined this patient, discuss w/resident/PA/[employer] FACTORY WORKER, agreed w/resident/PA/[employer] FACTORY WORKER, discussed with family, reviewed EMR data (avail), discussed with nursing, discussed with case mgmt, reviewed images, amended to note Attending Assessment/Plan: Patient seen/examined bedside. Patient vital stable, tolerating PO. Afebrile with pathology final sent to [facility]. CRS consulted and recommend diverting colostomy for impending obstruction on coming . PT called for generalsied weakness 2/2 anemia of chronic disease and general physical deconditioning and recommend STR. Patient is medically stable for discharge to [facility] and outpatient surgery for diverting colostomy under surgical service. (Case discussed with Dr Montoya). Patient also need to follow up with Hematology/ oncology for future chemotherapy in 1-2 weeks of discharge. Patient to follow up with PCP in few days of discharge.
--- NOTE | 2017-09-20 07:25 | PN- Oncology ---
Subjective Subjective: She denies any new symptoms this morning. She has no new pain. She is moving her bowel. Bowel is loose. She denies any fever or chills. Review of Systems: Constitutional: Reports: weakness. Denies: chills, fever. Cardiovascular: Denies: chest pain. Gastrointestinal: Denies: abdominal pain. Musculoskeletal: Denies: back pain. Neurological/Psychological: Denies: ataxia, confusion. Hematologic/Endocrine: Denies: bruising, bleeding. All Other Systems: Reviewed and Negative Objective Vital Signs and I&Os Vital Signs Date Time Temp Pulse Resp B/P B/P Pulse O2 O2 Flow FiO2 Mean Ox Delivery Rate 09/20 06 97.6 96 20 122/70 96 Room Air 09/20 0658 97.5 117 24 12270 96 Nasal 2.0L Cannula 09/19 2250 98.1 93 20 144/74 97 Room Air 09/19 1601 Room Air 09/19 1449 98.0 95 20 132/70 97 09/19 0855 100 158/62 09/19 0800 Room Air Intake & Output 09/20 0800 09/20 0000 09/19 1600 09/19 0800 09/19 0000 09/18 1600 Intake Total 300 300 201 863 8855 360 Output Total 077 702 2993 600 Balance 150 -100 560 -600 400 360 Intake, IV 200 400 400 Intake, Oral 300 300 360 600 360 Number 4 6 2 1 Bowel Movements Output, Urine 744 324 6373 600 Patient 90.747 kg 90.435 kg Weight Weight Bed scale Bed scale Measurement Method Physical Exam: General Appearance: well developed/nourished, no apparent distress, alert, awake , comfortable, obese Head: normal appearance Respiratory: normal breath sounds, no respiratory distress, quiet breathing Cardiovascular: regular rate/rhythm Abdomen: normal bowel sounds, soft, non-tender Extremities: no edema Neurologic/Psychiatric: awake, alert, oriented x 3 Skin: warm/dry Current Medications: Current Medications Sig/Rose Start time Last Medication Dose Route Stop Time Status Admin Acetaminophen 650 MG Q4P PRN 09/19 1100 AC 09/20 PO 0122 [place] Butter/Shark 1 BROWN BID 09/19 1047 AC 09/19 Liver Oil TOP 2104 Heparin Sodium 5,000 UNIT Q8 09/14 2200 AC 09/20 (Porcine) SC 0606 Insulin Aspart 0 TIDAC 09/15 0800 AC 09/19 SC 1707 Levothyroxine Sodium 0.025 MG DAILY 09/15 1000 AC 09/19 PO 0855 Lisinopril 5 MG DAILY 09/15 1000 AC 09/19 PO 0855 Potassium Chloride 40 MEQ AT BEDTIME 09/190 DC PO Potassium Chloride 40 MEQ AT BEDTIME 09/19 2200 AC 09/19 PO 2139 Potassium Chloride 60 MEQ ONCE ONE 09/19 0745 DC 09/19 PO 09/19 0746 0854 Sodium Chloride 1,000 ML Q20H 09/14 204 09/19 IV 0546 Zinc Oxide 1 BROWN BID 09/19 1031 09/19 [facility] 2103 Assessment/Plan Assessment/Recommendations: Ms. Russo is a 76-year-old female with DM, HTN, hypothyroidism, and CAD s/ p stent in 2006 who presented to the [facility] with severe months of weakness, dyspnea, and difficulty walking due to weakness. On presentation, she is noted to have microcytic anemia, leukocytosis, and thrombocytosis. Leukocytosis and thrombocytosis are likely reactive. Iron studies demonstrated anemia of chronic disease. CTA of the chest, abdomen, and pelvis demonstrated liver and lung lesions concerning for metastatic disease. She has never had colonoscopy done. She has underwent liver biopsy and noted poorly differentiated carcinoma. Colonoscopy demonstrated rectal mass with biopsy demonstrating oorly differentiated carcinoma. There is concern for possible pending obstruction. Discussion with Dr. Darby and Dr. Montoya was done and it was felt that diverting colostomy would be the best option for the patient. Tumor is too low for stenting. She does have some overflow disease and obstructive signs. She will get diverting colostomy on . Hopefully she will be able to get port placed soon afterward. 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 Problem List: 1. Anemia 2. Multiple lesions of metastatic malignancy 3. Rectal carcinoma 4. Metastases to the liver
[2017-09-20 08:39] LABS: ABSOLUTE BASOPHIL COUNT 0 /CUMM (0.0-0.2); ABSOLUTE EOSINOPHIL COUNT 0.1 /CUMM (0.0-0.7); ABSOLUTE GRANULOCYTE CT 12.6 /CUMM (1.4-6.5); ABSOLUTE LYMPH COUNT 2.1 /CUMM (1.2-3.4); ABSOLUTE MONOCYTE COUNT 1.6 /CUMM (0.10-0.60); BASOPHIL % 0.1 % (0.0-2.0); EOSINOPHIL % 0.4 % (0-5); MEAN CORPUSCULAR HGB CONC 31.3 G/DL (33.0-37.0); MEAN CORPUSCULAR VOLUME 73.5 FL (81.0-99.0); MEAN PLATELET VOLUME 6.9 FL (7.4-10.4); PLATELET COUNT 376 /CUMM (130-400); RBC DISTRIBUTION WIDTH 21.2 % (11.5-14.5); RED BLOOD CELL CT 3.68 /CUMM (4.20-5.40); WHITE BLOOD CELL COUNT 16.4 /CUMM (4.8-10.8)
--- NOTE | 2017-09-20 08:48 | PN- General Surgery ---
Surgical Brief Attending Note Brief Attending Note: no change in clinical status no new complaints abdomen - soft , obese , NT Plan is for laparoscopic diverting colostomy this AM Continue low fiber diet today Clear liquids only tomorrow NPO after midnight tomorrow Needs type and screen tomorrow AM
--- NOTE | 2017-09-20 09:15 | Patient Discharge Instructions ---
Discharge Instructions General Discharge Information You were seen/treated for: Colorectal mass with metastasis to liver and lung. Watch for these problems: Case of chest pain, abdominal pain, nausea, vomiting, decreased appetite please go to the nearest emergency room. Special Instructions: Please follow-up with your primary care provider within 1-2 weeks of discharge. Please follow up with the colorectal surgeon Dr. WORTHINGTON within 1-2 weeks of discharge. Please follow-up with the hoop punch and coiler operator helper within 1-2 weeks of discharge. Diet Continue normal diet: No Recommended Diet: LOW FIBER DIET Activity Full Activity/No Limits: No Activity Self Limited: No Acute Coronary Syndrome Inclusion Criteria At DC or during hospital stay patient has or had the following: ACS DIAGNOSIS No Discharge Core Measures Meds if any: Prescribed or Continued at Discharge Meds if any: NOT Prescribed or Continued at Discharge Congestive Heart Failure Inclusion Criteria At DC or during hospital stay patient has or had the following: CHF DIAGNOSIS No Discharge Core Measures Meds if any: Prescribed or Continued at Discharge Meds if any: NOT Prescribed or Continued at Discharge Cerebrovascular accident Inclusion Criteria At DC or during hospital stay patient has or had the following: CVA/TIA Diagnosis No Discharge Core Measures Meds if any: Prescribed or Continued at Discharge Meds if any: NOT Prescribed or Continued at Discharge Venous thromboembolism Inclusion Criteria VTE Diagnosis No VTE Type NONE VTE Confirmed by (Test) NONE Discharge Core Measures - Per Current guidelines, there needs to be overlap - treatment for the first 5 days of Warfarin therapy. - If discharged on Warfarin prior to 5 days of - overlap therapy, the patient will need to be - assessed for post discharge needs including - *Post discharge parental anticoagulation - *Warfarin and/or parental anticoagulation education - *Follow up date to check INR post discharge At least 5 days overlap therapy as Inpatient No Meds if any: Prescribed or Continued at Discharge Note: Overlap Therapy is Warfarin and Anticoagulant Meds if any: NOT Prescribed or Continued at Discharge
--- NOTE | 2017-09-20 11:08 | Discharge Summary ---
Visit Information Visit Dates Admission Date: 09/14/17 Discharge Date: 09/20/17 Hospital Course Course Attending Physician: Roya Conde MD Primary Care Physician: Yamilet Mobley APRN Consulting Request: 1 Consulting Specialty: Gastroenterology Consulting Physician: Dr. Fisher Reason for Consult: chronic GI blood loss anemia. Hematochezia. Metastasis to liver Consulting Request: 2 Consulting Specialty: General Surgery Consulting Physician: Dr. Montoya Reason for Consult: rectal mass Consulting Request: 3 Consulting Specialty: Hematology/Oncology Consulting Physician: Dr. Melissa Reason for Consult: metastasis to lung and liver from suspected rectal cancer Hospital Course: The patient is a 76-year-old woman with a past medical history of obesity, diabetes, HTN, hypothyroidism, CAD post cardiac stent x 2- 2006, hx renal stones , former 40 pk yr cigarette smoker quit in 1977, positive family history of colon cancer, winth no prior EGD or colonoscopy, admitted to [facility] on 09/14/17 with complaints of 1 year of unintentional 30 pound weight loss, one month of weakness, progressive shortness of breath, loose stools, and occasionally pink tinged/scant rectal bleeding. Vital signs at presentation showed a temperature of 90 7.6F, pulse of 1 60 bpm, respiratory rate of 20/m, blood pressure 134/76 mmHg, pulse oximetry of 96% on room air. Physical exam at presentation: General Appearance Alert, Oriented X3, Cooperative, No Acute Distress Skin No Rashes, No Breakdown HEENT Atraumatic, PERRLA Neck Supple, No JVD, No thryomegaly Cardiovascular Regular Rate, Normal S1, Normal S2, No Murmurs Lungs Clear to Auscultation Abdomen Soft, No Tenderness Neurological Normal Speech, Strength at 5/5 X4 Ext, Normal Tone, Sensation Intact Extremities No Edema Vascular Normal Pulses Rectal Guiac Negative, rectal tone intact Her labs on admission were significant for for microcytic anemia with leukocytosis. Imaging studies which included chest x-ray and chest and abdomen/ pelvis CT angiogram revealed enlarged liver with multiple lesions consistent with metastatic disease and numerous pulmonary nodules. Doppler ultrasound of her left leg showed no DVT. The patient was seen by oncologist Dr. Okeefe and had a ultrasound guided liver biopsy by IR , with preliminary results showing poorly differentiated carcinoma. She also had an EGD which showed no gross abnormalities. However a colonoscopy done at the same time revealed a circumferential, ulcerated, necrotic partially obstructing rectal mass which was biopsied. Biopsy result of the rectal mass also showed poorly differentiated carcinoma. She was evaluated by colorectal surgeon Dr. Montoya with plans for a diverting colostomy to prevent possible impending rectal obstruction as the tumor was too low for stenting. Oncologist Dr. Melissa plans the patient for outpatient chemotherapy after diverting colostomy is done. She was reviewed by physical therapy who recommended her for short-term rehabilitation due to weakness. She was discharged to short-term rehabilitation with plans for admission for diverting colostomy on 09/22/17. Allergies: Coded Allergies: shellfish derived (Intermediate, G.I. DISTRESS FROM SCALLOPS 09/14/17) Significant Procedures: Gastroenterology Procedure Date of Last Colonoscopy: Never Procedure Date: 09/16/17 GI Procedure(s): Combined baseline upper endoscopy to the third portion of the duodenum, plus baseline colonoscopy to 15 cm (rectosigmoid junction; stool) with biopsies. President And Cmo: OREN ALBARADO,SHAQ Tran Impression: 1. 2 cm sliding hiatal hernia pouch, from 36-30 cm. Z line at 38 cm. 2. Otherwise, normal EGD to the third portion of the duodenum. Ampulla not seen with the direct- viewing scope. Random small bowel biopsies deferred. 3. Circumferential, friable, 360, nodular, ulcerated, necrotic rectal lesion, starting just past the dentate line and extending 10 cm, grossly appearing malignant, with septated features and possible internal fistulous tracts. Biopsy 10: (Specimen A- probable colorectal Ca). Poor prepped 15 cm, with procedure terminated at the rectosigmoid junction due to solid stool, which could not be cleared, due to the partially obstructing low-lying rectal lesion. -- Service date: 09/15/17 EXAM TYPE: US - US-LIVER BIOPSY EXAMINATION: Ultrasound-guided liver biopsy CLINICAL INFORMATION: 76-year-old patient presenting with numerous pulmonary nodules and bilateral hepatic mass lesions consistent with metastatic disease. COMPARISON: CTA of the chest, abdomen, and pelvis dated 09/14/2017 PROGRAMMER ANALYST CONSULTANT: Bacilio Saha M.D. IMPRESSION: Successful ultrasound-guided core needle biopsy of a mass lesion in the right lobe of the liver without evidence of complications. Pertinent Lab Results: Patient : MOHAMUD KUMARI Acct: [id number] DR: Roya Conde MD Birthdate: [birth year] Age/Sex: 76/F Unit: [id number] Loc: [facility] 223- 01 Status : ADM IN PATIENT: MOHAMUD KUMARI SPECIMEN NUM: [id number] [facility] REC NUM: [id number] RECEIVED: 09/16/17 ACCOUNT NUM: [id number] LOCATION: [facility] BIRTHDATE: [birth year] ATTEND MD: Roya Conde MD AGE: 76 SUBMITTING MD: Oren ALBARADO, Shaq Tran SEX: F HISTORY Unintentional weight loss, anemia, intermittent rectal bleeding, intermittent loose stools; fatigue, SOB and family history of early onset colon CA; patient also had liver biopsy, [id number] DIAGNOSIS RECTAL MASS, BIOPSY: POORLY DIFFERENTIATED CARCINOMA. SENT TO [facility] FOR REVIEW, INCLUDING IMMUNOHISTOCHEMICAL STAIN WORK-UP. NOTE: This case was discussed with Dr. Conde on 09/19/17 at 11:10 AM. Dictated by: Eliud Yuan MD GROSS Received in formalin labeled "rectal mass biopsy x8 "are 8 pieces of rodriguez tissue 0.1-0.3 cm with multiple minute fragments of debris which are submitted in toto in one cassette. Dictated by: Mark Bello Signed Eliud Yuan MD 09/19/17 Patient : MOHAMUD KUMARI Acct: [id number] DR: Roya Conde MD Birthdate: [birth year] Age/Sex: 76/F Unit: [id number] Loc: [facility] 223- 01 Status : ADM IN PATIENT: MOHAMUD KUMARI SPECIMEN NUM: [id number] [facility] REC NUM: [id number] RECEIVED: 09/15/17 ACCOUNT NUM: [id number] LOCATION: [facility] BIRTHDATE: [birth year] ATTEND MD: Roya Conde MD AGE: 76 SUBMITTING MD: Destin Saha MD SEX: F HISTORY Multiple lung and liver masses; See subsequent rectal mass biopsy, [id number], obtained on 09/16/17 DIAGNOSIS LIVER, NEEDLE BIOPSY: POORLY DIFFERENTIATED CARCINOMA WITH EXTENSIVE NECROSIS. NOTE: This case has been sent to [facility] for immunohistochemical stain analysis for possible primary sites, including colon. This case was discussed with Dr. Conde on 09/16/17 at 11:30 AM. Dictated by: Eliud Yuan MD GROSS Received in formalin with the patient's name and labeled liver biopsy are five cylindrical rodriguez portions of tissue measuring from 0.6 x 0.1 x 0.1 cm to 2.1 x 0.1 x 0.1 cm. Totally submitted five cassettes. Dictated by: Chase Oneal Signed Eliud Yuan MD 09/16/17 Disposition Summary Disposition Principal Diagnosis: 1. 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 Anemia of chronic disease or malignancy 3. Physical deconditioning/generalized weakness Additional Diagnosis: 4. Diabetes mellitus 5. Hypertension 6. Hypothyroidism Discharge Disposition: SNF Discharge Instructions General Discharge Information Code Status: Full Code Patient's Diet: Low fiber diet Patient's Activity: Self-limited activity Follow-Up Instructions/Appts: Please follow-up with your primary care provider within 1-2 weeks of discharge. Please follow up with your colorectal surgeon Dr. MONTOYA within 1 week of discharge. He plans to admit you to the hospital on 09/22/17 for colostomy surgery. Please follow-up with your workers compensation adjuster within 1-2 weeks of discharge. Please follow-up with oncologist Dr. Okeefe within 1 week of discharge Medications at Discharge Discharge Medications: Continue taking these medications: Levothyroxine Sodium (Levothyroxine Sodium) 25 MCG TABLET 1 Tablet ORAL DAILY Qty = 90 Quinapril HCl (Quinapril HCl) 20 MG TABLET 1 Tablet ORAL DAILY Qty = 90 Atorvastatin Calcium (Atorvastatin Calcium) 40 MG TABLET 1 Tablet ORAL DAILY Qty = 90 Sitagliptin Phos/Metformin HCl (Janumet 50-1,000 MG Tablet) 50 MG-1,000 MG TABLET 1 Tablet ORAL TWICE DAILY Qty = 180 Glimepiride (Glimepiride) 4 MG TABLET 1 Tablet ORAL DAILY Qty = 180 Empagliflozin (Jardiance) 10 MG TABLET 1 Tablet ORAL Every other day Qty = 90 Copies To: Destin Montoya Jr., DO; Oren ALBARADO,Shaq Tran; Yamilet Mobley APRN; Phillip ALBARADO,[facility]; Lora ALBARADO,[facility]
[2017-09-20 14:31] VITALS: BP 124/68
[2017-09-20 15:16] VITALS: BP 124/68
== END 2017-09-20 16:11 | DRG 375 ==
LOC: ERH 10:58 → ERHI 16:55 → 2NA 16:55 → ENRESERV 17:21 → ENTRNSPT 18:14 → EDTRNSPT 18:34 → EDTRNSPTSTS 18:34 → 2NA 18:44 → CMPTRNSPT 19:20 → 2NA 09-15 07:59
PROVIDERS: Emergency Medicine; Internal Medicine; Internal Medicine Adolescent Medicine; Student in an Organized Health Care Education/Training Program
PROC: 0FB03ZX Excision of Liver, Percutaneous Approach, Diagnostic (ICD-10-PCS; principal; 2017-09-15)
PROC: 0DB88ZX Excision of Small Intestine, Via Natural or Artificial Opening Endoscopic, Diagnostic (ICD-10-PCS; 2017-09-16)
PROC: 0DBP8ZX Excision of Rectum, Via Natural or Artificial Opening Endoscopic, Diagnostic (ICD-10-PCS; 2017-09-16)
DX: C20 Malignant neoplasm of rectum (principal); C78.7 Secondary malignant neoplasm of liver and intrahepatic bile duct; E87.2 Acidosis; C78.00 Secondary malignant neoplasm of unspecified lung; E11.9 Type 2 diabetes mellitus without complications; E87.1 Hypo-osmolality and hyponatremia; E83.42 Hypomagnesemia; D50.0 Iron deficiency anemia secondary to blood loss (chronic); K92.1 Melena; D47.3 Essential (hemorrhagic) thrombocythemia; D72.829 Elevated white blood cell count, unspecified; Z79.84 Long term (current) use of oral hypoglycemic drugs; R63.4 Abnormal weight loss; Z68.37 Body mass index [BMI] 37.0-37.9, adult; I10 Essential (primary) hypertension; E03.9 Hypothyroidism, unspecified; I25.10 Atherosclerotic heart disease of native coronary artery without angina pectoris; Z98.61 Coronary angioplasty status; Z87.891 Personal history of nicotine dependence; R79.89 Other specified abnormal findings of blood chemistry; R91.1 Solitary pulmonary nodule; E04.9 Nontoxic goiter, unspecified
CPT/HCPCS: 2NASP; 36415; 36592; 71045; 74174; 81001; 82436; 88305; 93005; 93010; 96360; 96361; 97110-GO; 97112-GO; 97161-GP; 97530-GO; J1644

== ENCOUNTER 2017-09-22 01:14 | Inpatient (IN) | payer OTHER ==
[~2017-09-22] VITALS: Ht 149.9 cm; Wt 95.7 kg
[~2017-09-22 01:14] MED LIST: ATORVASTATIN CA40 M1 PO; GLIMEPIRIDE4 M1 PO; JANUMET 50-1,01 EACH PO; JARDIANCE10 M1 PO; LEVOTHYROXINE25 MCG PO; QUINAPRIL HCL20 M1 PO
--- NOTE | 2017-09-22 12:09 | Cons- Medical ---
JasensimoneSidney roque 09/22/17 1209: General Information and HPI Consulting Request Date of Consult: 09/22/17 Requested By: Destin Montoya Jr., DO Reason for Consult: Patient needs clearance before laparoscopic diverting colostomy Source of Information: patient, family, old records Exam Limitations: no limitations History of Present Illness: The patient is a 76-year-old woman with a past medical history of obesity, diabetes, HTN, hypothyroidism, CAD post cardiac stent x 2- 2006, hx renal stones , former 40 pk yr cigarette smoker quit in 1977, positive family history of colon cancer, winth no prior EGD or colonoscopy, admitted to [facility] on 09/14/17 with complaints of 1 year of unintentional 30 pound weight loss, one month of weakness, progressive shortness of breath, loose stools, and occasionally pink tinged/scant rectal bleeding she was found to have enlarged liver with multiple lesions consistent with metastatic disease and numerous pulmonary nodules on the CAT scan abdomen/pelvis. The patient was seen by oncologist Dr. Okeefe and had a ultrasound guided liver biopsy by IR , with preliminary results showing poorly differentiated carcinoma. She also had an EGD which showed no gross abnormalities. However a colonoscopy done at the same time revealed a circumferential, ulcerated, necrotic partially obstructing rectal mass which was biopsied. Biopsy result of the rectal mass also showed poorly differentiated carcinoma. She was evaluated by colorectal surgeon Dr. Montoya with plans for a diverting colostomy to prevent possible impending rectal obstruction as the tumor was too low for stenting. Oncologist Dr. Melissa plans the patient for outpatient chemotherapy after diverting colostomy is done. Patient was discharged yesterday to short-term rehabilitation unfortunately with no cardiology evaluation and she is not cleared yet for the procedure hence her surgery was delayed until next week. Today during thank onto patient was noted to be tachypneic and she attributed that because she has been exhausted coming back and forth to the hospital, and she was just arrived to her bed from restroom, she denies any shortness of breath at rest, no chest pain, palpitation, dizziness, headache, vision changes, and there is no change in urinary or bowel habits. Last time she was seen by her ticket attendant Dr. Olivarez was about 5 years ago at that time she had echocardiogram (at 2010), she lost her insurance so she didn't follow up with her ticket attendant anymore. Allergies/Medications Allergies: Coded Allergies: No Known Drug Allergies (UNKNOWN 09/22/17) shellfish derived (Intermediate, G.I. DISTRESS FROM SCALLOPS 09/14/17) Home Med List: Atorvastatin Calcium 40 MG TABLET 1 TAB PO DAILY CHOLESTROL (Reported) Empagliflozin (Jardiance) 10 MG TABLET 1 TAB PO EOD DM (Reported) Glimepiride 4 MG TABLET 1 TAB PO DAILY DM (Reported) Levothyroxine Sodium 25 MCG TABLET 1 TAB PO DAILY THYROID (Reported) Quinapril HCl 20 MG TABLET 1 TAB PO DAILY HTN (Reported) Sitagliptin Phos/Metformin HCl (Janumet 50-1,000 MG Tablet) 50 MG-1,000 MG TABLET 1 TAB PO BID DM (Reported) Review of Systems Review of Systems Constitutional: Reports: malaise. EENTM: Reports: no symptoms. Cardiovascular: Reports: no symptoms, peripheral edema. Denies: chest pain, orthopena. Respiratory: Reports: short of breath (With exertion). GI: Reports: no symptoms. Genitourinary: Reports: no symptoms. Musculoskeletal: Reports: no symptoms. Skin: Reports: no symptoms. Neurological/Psychological: Reports: no symptoms. Hematologic/Endocrine: Reports: no symptoms. Immunologic/Allergic: Reports: no symptoms. All Other Systems: Reviewed and Negative Past History Medical History Cardiovascular: CAD (s/p stents), hypertension, hyperlipidemia, HEART MURMUR Endocrine: diabetes, hypothyroidism, obesity Surgical History Surgical History: non-contributory Family History Relations & Conditions If Any: FATHER Relation not specified for: FH: heart disease Psychosocial History Who Do You Live With? self Services at Home: None Primary Language: Lithuanian Functional Ability ADLs Independent: dressing, eating, toileting, bathing. Ambulation: independent IADLs Independent: shopping, housework, finances, telephone, medication admin. Exam & Diagnostic Data Last 24 Hrs of Vital Signs/I&O Intake & Output 09/22 1600 09/22 0800 09/22 0000 Intake Total Output Total Balance Patient 202 lb Weight Physical Exam General Appearance: well developed/nourished, no apparent distress, alert, awake , tachypneic Head: atraumatic, normal appearance Neck: normal inspection, supple, full range of motion Respiratory: normal breath sounds, chest non-tender, no respiratory distress Cardiovascular: regular rate/rhythm, edema, normal peripheral pulses Gastrointestinal: normal bowel sounds, soft, non-tender, no organomegaly Extremities: +3 edema in bilateral lower extremity Neurologic/Psych: no motor/sensory deficits, awake, alert, oriented x 3 Last 24 Hrs of Labs/Tha: No labs Assessment/Plan Assessment/Plan The patient is a 76-year-old woman with a past medical history of obesity, diabetes, HTN, hypothyroidism, CAD post cardiac stent x 2- 2006, hx renal stones , former 40 pk yr cigarette smoker quit in 1977, positive family history of colon cancer, winth no prior EGD or colonoscopy, admitted to [facility] on 09/14/17 with complaints of 1 year of unintentional 30 pound weight loss, one month of weakness, progressive shortness of breath, loose stools, and occasionally pink tinged/scant rectal bleeding she was found to have enlarged liver with multiple lesions consistent with metastatic disease and numerous pulmonary nodules on the CAT scan abdomen/pelvis. Patient found to have poorly differentiated colon cancer with metastasis to the liver, she is admitted today for diverting colostomy, however she needs medical clearance before the procedure which was postponed until next week. 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 of diabetes, HTN, hypothyroidism Plan: * Patient admitted under surgical service for procedure next week * She needs medical clearance before his surgery, she has a high-risk surgery with RCR I score of 6.6%, she is class III risk with METs<4 * Patient needs cardiology evaluation prior to the surgery, a consult was placed with Dr. Olivarez * Please obtain Echocardiogram and EKG * Continue all home medications * Hold oral hypoglycemic agent and start insulin sliding scale * Accucheck TIDAC/HS Copies To: Laquita Mueller MD Consult Acknowledgment - Thank you for your consult request. Laquita Mueller MD 09/22/17 1421: Assessment/Plan Consult Acknowledgment - Thank you for your consult request. Attending MD Review Statement Attending Statement Attending Statement: examined this patient, discuss w/resident/PA/DENSITOMETER READER, agreed w/resident/PA/DENSITOMETER READER, discussed with family, reviewed EMR data (avail), amended to note Attending Assessment/Plan: 76-year-old female with past medical history significant for hypertension, hypothyroidism, diabetes, coronary artery disease status post stent, recently admitted to with generalized weakness, loose stools and unintentional weight loss and found to have metastatic disease from poorly differentiated rectal carcinoma. Patient is scheduled for surgery diverting Colostomy with Dr. Montoya today. Medical consult was obtained for medical clearance. Patient currently denies any chest pain, shortness of breath. She did complain of dyspnea on minimal exertion. She could only walk a few steps before getting short of breath. She has not seen a ticket attendant in over 5 years due to losing insurance. She does not take any antiplatelet agents. She does take statins and her hypertension medications. Her last echo was from 2010 which showed good ejection fraction. Vital Signs Date Time Temp Pulse Resp B/P B/P Pulse O2 O2 Flow FiO2 Mean Ox Delivery Rate 09/22 1358 97.7 95 18 124/70 98 Room Air On exam; aox3, nad. Looks pale. Cv; s1, s2, rrr resp; clear abd; soft, nt, bs+ ext; 2+ edema. Labs pending. Assessment and recommendations: 76-year-old female with past medical history significant for hypertension, hypothyroidism, diabetes, coronary artery disease status post stent, recently admitted to with generalized weakness, loose stools and unintentional weight loss and found to have metastatic disease from poorly differentiated rectal carcinoma. Patient is scheduled for surgery diverting Colostomy with Dr. Montoya today. Medical consult was obtained for medical clearance. Patient is admitted to surgical service. Her RCRI risk scoring index shows that she has class III risk with 6.6% risk of major cardiac events. She has a poor functional status overall. Patient will require cardiology evaluation for the clearance for this surgery. Would recommend repeating her echocardiogram. Patient should be continued on her current medications. Please monitor her H&H. Continue her thyroid medication. Her recent thyroid function was checked and was normal. DVT prophylaxis: Heparin subcutaneous has been started. Please monitor H&H.. Thank you for allowing us to participate in the care of this patient. Will follow along with you.
--- NOTE | 2017-09-22 13:10 | History & Physical ---
General Information and HPI MD Statement: I have seen and personally examined MOHAMUD KUMARI and documented this H& P. The patient is a 76 year old F who presented with a patient stated chief complaint of []. Source of Information: patient Exam Limitations: no limitations History of Present Illness: This is a 76-year-old female with a past medical history significant for hypertension, coronary artery disease, hyperlipidemia, diabetes mellitus type 2, heart murmur, obesity and hypothyroidism who is being admitted to the surgical service for preoperative clearance for proceeding to the operating room for diverting colostomy secondary to a circumferential, friable, 360, nodular, ulcerated, necrotic rectal lesion, starting just past the dentate line and extending 10 cm, grossly appearing malignant, with septated features and possible internal fistulous tracts. The patient reports that she currently has issues with eating and has to take in very small meals frequently throughout the day. She denies any abdominal pain, nausea, vomiting, fevers, or chills currently. Allergies/Medications Allergies: Coded Allergies: No Known Drug Allergies (UNKNOWN 09/22/17) shellfish derived (Intermediate, G.I. DISTRESS FROM SCALLOPS 09/14/17) Home Med list Atorvastatin Calcium 40 MG TABLET 1 TAB PO DAILY CHOLESTROL (Reported) Empagliflozin (Jardiance) 10 MG TABLET 1 TAB PO EOD DM (Reported) Glimepiride 4 MG TABLET 1 TAB PO DAILY DM (Reported) Levothyroxine Sodium 25 MCG TABLET 1 TAB PO DAILY THYROID (Reported) Quinapril HCl 20 MG TABLET 1 TAB PO DAILY HTN (Reported) Sitagliptin Phos/Metformin HCl (Janumet 50-1,000 MG Tablet) 50 MG-1,000 MG TABLET 1 TAB PO BID DM (Reported) Past History Medical History Cardiovascular: CAD (s/p stents), hypertension, hyperlipidemia, HEART MURMUR Endocrine: diabetes, hypothyroidism, obesity History of MRSA: No History of VRE: No History of CDIFF: No Isolation History: Standard Surgical History Surgical History: non-contributory Past Family/Social History Family History Relations & Conditions if any FATHER FH: heart disease MOTHER FH: cancer of digestive organ BROTHER FH: heart attack SISTER FHx: lung cancer BROTHER Psychosocial History Who Do You Live With? self Services at Home: None Primary Language: Belarusian Smoking Status: Former Smoker (2ppd x 40 years ) ETOH Use: denies use Illicit Drug Use: denies illicit drug use Functional Ability ADLs Independent: dressing, eating, toileting, bathing. Ambulation: independent IADLs Independent: shopping, housework, finances, telephone, medication admin. Review of Systems Review of Systems Constitutional: Reports: see HPI. Exam & Diagnostic Data Last 24 Hrs of Vital Signs/I&O Vital Signs Date Time Temp Pulse Resp B/P B/P Pulse O2 O2 Flow FiO2 Mean Ox Delivery Rate 09/22 1358 97.7 95 18 124/70 98 Room Air Intake & Output 09/22 1600 09/22 0800 09/22 0000 Intake Total Output Total Balance Patient 200 lb 202 lb Weight Physical Exam General Appearance Alert, Oriented X3, No Acute Distress Abdomen Soft, No Tenderness (obese, soft, nt, nd, no r/g) Extremities 2 + pitting edema, no calf tenderness, erythema or induration Assessment/Plan Assessment: This is a 76-year-old female with a past medical history significant for hypertension, coronary artery disease, hyperlipidemia, diabetes mellitus type 2, heart murmur, obesity and hypothyroidism who is being admitted to the surgical service for preoperative clearance for proceeding to the operating room for diverting colostomy secondary to a circumferential, friable, 360, nodular, ulcerated, necrotic rectal lesion, starting just past the dentate line and extending 10 cm, grossly appearing malignant, with septated features and possible internal fistulous tracts. The patient reports that she currently has issues with eating and has to take in very small meals frequently throughout the day. She denies any abdominal pain, nausea, vomiting, fevers, or chills currently. Plan from a surgical standpoint is as follows: 1. Continue low residue diabetic diet, will need to be clears all day tuesday, nothing by mouth after midnight on Tuesday for procedure Tuesday 2. When necessary analgesics and antiemetics, bowel regimen ordered 3. GI/DVT prophylaxis is ordered 4. Cardiology consult pending for tomorrow, echocardiogram today 5. Continue home medications for her comorbidities 6. I have encouraged ambulation, incentive spirometry, turn, cough and deep breathing techniques 7. Appreciate medicine input 8. Follow-up labs 9. Will follow along closely 10. Case discussed with attending As Ranked By This Provider Problem List: 1. Rectal carcinoma Core Measures/Misc (03/13) Acute Coronary Syndrome ACS Diagnosis: No Congestive Heart Failure Congestive Heart Failure Diagnosis No Cerebrovascular Accident CVA/TIA Diagnosis: No VTE (View Protocol) VTE Risk Factors No risk factors No Mechanical VTE Prophylaxis d/t N/A MechProphylax Ordered No VTE Pharm Prophylaxis d/t NA PharmProphylax ordered Sepsis (View protocol) Sepsis Present: No
[2017-09-22 13:58] VITALS: BP 124/70
--- NOTE | 2017-09-22 14:52 | Admission Core Measures ---
Acute Coronary Syndrome (CM) ACS Core Measures Acute Coronary Syndrome Diagnosis No Congestive Heart Failure (NEW) CHF Core Measures Congestive Heart Failure Diagnosis No Cerebrovascular Accident (NEW) CVA Core Measures CVA/TIA Diagnosis No Venous Thromboembolism VTE Core Olman (View Protocol) VTE Risk Factors No risk factors No Mechanical VTE Prophylaxis d/t N/A MechProphylax Ordered No VTE Pharm Prophylaxis d/t NA PharmProphylax ordered Problem List As ranked by this Provider includes Assessment & Plan 1. Rectal carcinoma HOME MEDS Home Med List Atorvastatin Calcium 40 MG TABLET 1 TAB PO DAILY CHOLESTROL (Reported) Empagliflozin (Jardiance) 10 MG TABLET 1 TAB PO EOD DM (Reported) Glimepiride 4 MG TABLET 1 TAB PO DAILY DM (Reported) Levothyroxine Sodium 25 MCG TABLET 1 TAB PO DAILY THYROID (Reported) Quinapril HCl 20 MG TABLET 1 TAB PO DAILY HTN (Reported) Sitagliptin Phos/Metformin HCl (Janumet 50-1,000 MG Tablet) 50 MG-1,000 MG TABLET 1 TAB PO BID DM (Reported)
[2017-09-22 22:21] VITALS: BP 110/64
[2017-09-23 07:07] VITALS: BP 118/62
--- NOTE | 2017-09-23 07:41 | PN- Medicine Consult ---
Crystalbrishaina,[facility] 09/23/17 0740: Assessment/PlanMedical Consult Assessment/Plan Assessment: The patient is a 76-year-old woman with a past medical history of obesity, diabetes, HTN, hypothyroidism, CAD post cardiac stent x 2- 2006, hx renal stones , former 40 pk yr cigarette smoker quit in 1977, positive family history of colon cancer, winth no prior EGD or colonoscopy, admitted to [facility] on 09/14/17 with complaints of 1 year of unintentional 30 pound weight loss, one month of weakness, progressive shortness of breath, loose stools, and occasionally pink tinged/scant rectal bleeding she was found to have enlarged liver with multiple lesions consistent with metastatic disease and numerous pulmonary nodules on the CAT scan abdomen/pelvis. Patient found to have poorly differentiated colon cancer with metastasis to the liver, she is admitted today for diverting colostomy, however she needs medical clearance before the procedure which was postponed until next week. 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 of diabetes, HTN, hypothyroidism Plan: * She needs medical clearance before his surgery, she has a high-risk surgery with RCR I score of 6.6%, she is class III risk with METs<4 * Patient needs cardiology evaluation prior to the surgery, a consult was placed with Dr. Olivarez * Echocardiogram showed Normal left and right ventricular systolic function. Moderate Aortic stenosis. * Continue all home medications * Hold oral hypoglycemic (Please hold Glimiperide). Continue insulin sliding scale * Accucheck TIDAC/HS * Please check CBC, BEP today Problem List: 1. Rectal carcinoma 2. Metastases to the liver Subjective Subjective: She was seen and examined, no acute distress, no events over night, vitals stable. She deels postprandial fullness, with no abdominal pain. Objective Last 24 Hrs of Vital Signs/I&O Vital Signs Date Time Temp Pulse Resp B/P B/P Pulse O2 O2 Flow FiO2 Mean Ox Delivery Rate 09/23 0707 98.6 106 20 118/62 94 09/22 2221 98.8 93 20 110/64 96 Room Air 09/22 1947 Room Air Room Air 09/22 1358 97.7 95 18 124/70 98 Room Air Intake & Output 09/23 1600 09/23 0800 09/23 0000 Intake Total 120 250 Output Total 300 250 Balance -180 0 Intake, Oral 120 250 Number 1 Bowel Movements Output, Urine 300 250 Patient 201 lb Weight Current Medications: Current Medications Sig/Rose Start time Last Medication Dose Route Stop Time Status Admin Acetaminophen 650 MG Q4P PRN 09/26 1400 AC PO Acetaminophen 1,000 MG Q8P PRN 09/22 1145 DC 09/22 PO 1715 Atorvastatin Calcium 40 MG 1700 09/22 1700 AC 09/25 PO 1712 Cefazolin Sodium 2 GM IQ8 09/26 1600 AC N/A 1 UNIT IV 09/27 0029 Dextrose/Sodium 1,000 ML Q13H 09/26 0745 AC 09/26 Chloride IV 0756 Diphenhydramine HCl 50 MG Q6P PRN 09/22 1145 DC IV Docusate Sodium 100 MG DAILY 09/22 1246 DC 09/25 PO 0859 Heparin Sodium 5,000 UNIT Q8 09/26 2200 AC (Porcine) SC Heparin Sodium 5,000 UNIT Q8 09/22 1400 DC 09/25 (Porcine) SC 09/26 0000 2041 Insulin Aspart 0 AT BEDTIME 09/26 2200 AC SC Insulin Aspart 0 TIDAC 09/26 1700 AC SC Insulin Aspart 0 TIDAC 09/23 1700 DC 09/24 SC 1656 Insulin Human Regular 0 Q6 09/25 2359 DC SC Levothyroxine Sodium 0.025 MG DAILY AC 09/23 0700 AC 09/25 PO 0531 Lisinopril 20 MG DAILY 09/23 1000 DC 09/25 PO 0859 Magnesium Sulfate 1 GM Q2H 09/25 1915 DC 09/25 Dextrose/Water 100 ML IV 09/25 2314 2222 Metoprolol Tartrate 12.5 MG BID 09/25 1110 AC 09/25 PO 2323 Metronidazole 500 MG IQ8 09/26 1600 AC N/A 1 UNIT IV 09/27 0059 Morphine Sulfate 2 MG Q2P PRN 09/22 1145 AC 09/26 IV 0901 Omeprazole 20 MG DAILY AC 09/27 0700 AC PO Ondansetron HCl 4 MG Q6 PRN 09/25 0511 AC 09/25 IV 0530 Oxycodone/ 2 TAB Q4P PRN 09/26 1400 AC Acetaminophen PO Oxycodone/ 1 TAB Q4P PRN 09/22 1145 AC 09/25 Acetaminophen PO 2130 Pantoprazole Sodium 40 MG DAILY 09/23 1000 DC 09/25 IV 0859 Zinc Oxide 1 BROWN BID 09/22 1514 AC 09/26 TOP 0904 Results Last 24 Hrs Lab/Tha Results: Laboratory Tests 09/26/17 0517: Anion Gap 7, Estimated GFR > 60, BUN/Creatinine Ratio 24.0, Glucose 80, Magnesium 2.1, CBC w Diff NO MAN DIFF REQ, RBC 3.93 L, MCV 74.8 L, MCH 23.8 L , MCHC 31.8 L, RDW 20.8 H, MPV 6.5 L, Gran % 75.2, Lymphocytes % 13.6 L, Monocytes % 10.8 H, Eosinophils % 0.3, Basophils % 0.1, Absolute Granulocytes 15.7 H, Absolute Lymphocytes 2.8, Absolute Monocytes 2.3 H, Absolute Eosinophils 0.1, Absolute Basophils 0 Microbiology 09/26 1200 URINE OR: Urine Culture - RES Ervin ALBARADO,[facility] 09/23/17 1032: Attending MD Review Statement Attending Sign Off Attending Cosign Statement: I have: examined this patient, reviewed [facility] EMR data, personally reviewd images, discussd w/resident/PA/PLASTIC JIG AND FIXTURE BUILDER, discussed mgmt plan w/pt, agreed w/resident/ PA/PLASTIC JIG AND FIXTURE BUILDER. Other Findings: Patient seen and examined, feels tired and ants to get somne sleep. Denies any pains. Pt still needs to be seen by geospatial image analyst. Vital Signs Date Time Temp Pulse Resp B/P B/P Pulse O2 O2 Flow FiO2 Mean Ox Delivery Rate 09/23 0900 98 118/78 09/23 0707 98.6 106 20 118/62 94 09/22 2221 98.8 93 20 110/64 96 Room Air 09/22 1947 Room Air Room Air 09/22 1358 97.7 95 18 124/70 98 Room Air on exam; aox3, nad. cv; s1,s2, rrr resp; clear abd; soft, nt, bs+ ext; 2+ edema Laboratory Tests 09/22 1138 Chemistry Sodium Cancelled Potassium Cancelled Chloride Cancelled Carbon Dioxide Cancelled Anion Gap Cancelled BUN Cancelled Creatinine Cancelled BUN/Creatinine Ratio Cancelled Total Bilirubin Cancelled Direct Bilirubin Cancelled AST Cancelled ALT Cancelled Alkaline Phosphatase Cancelled Total Protein Cancelled Albumin Cancelled Hematology CBC w Diff Cancelled WBC Cancelled RBC Cancelled Hgb Cancelled Hct Cancelled MCV Cancelled MCH Cancelled MCHC Cancelled RDW Cancelled Plt Count Cancelled MPV Cancelled Current Medications Sig/Rose Start time Last Medication Dose Route Stop Time Status Admin Acetaminophen 1,000 MG Q8P PRN 09/22 1145 AC 09/22 PO 1715 Atorvastatin Calcium 40 MG 1700 09/22 1700 AC 09/22 PO 1715 Diphenhydramine HCl 50 MG Q6P PRN 09/22 1145 AC IV Docusate Sodium 100 MG DAILY 09/22 1246 AC 09/22 PO 1721 Glimepiride 4 MG DAILY AC 09/23 0700 AC 09/23 PO 0643 Heparin Sodium 5,000 UNIT Q8 09/22 1400 AC 09/22 (Porcine) SC 2217 Insulin Human Regular 0 TIDAC/HS 09/22 1200 AC 09/22 SC 1721 Levothyroxine Sodium 0.025 MG DAILY AC 09/23 0700 AC 09/23 PO 0643 Lisinopril 20 MG DAILY 09/23 1000 AC PO Morphine Sulfate 2 MG Q2P PRN 09/22 1145 AC IV Ondansetron HCl 4 MG Q6 09/22 1200 AC 09/23 IV 0643 Oxycodone/ 1 TAB Q4P PRN 09/22 1145 AC 09/22 Acetaminophen PO 2025 Pantoprazole Sodium 40 MG DAILY 09/23 1000 AC IV Zinc Oxide 1 BROWN BID 09/22 1514 AC 09/22 TOP 2217 Assessment and recommendations: 76-year-old female with past medical history significant for hypertension, hypothyroidism, diabetes, coronary artery disease status post stent, recently admitted to with generalized weakness, loose stools and unintentional weight loss and found to have metastatic disease from poorly differentiated rectal carcinoma. Patient is scheduled for surgery diverting Colostomy with Dr. Montoya on Tuesday. Medical consult was obtained for medical clearance. See note from yesterday about her risk stratification. Patient still needs to be seen by the geospatial image analyst. She does have swelling in the lower extremity. Lower extremity elevation. Please watch electrolytes. Would recommend stopping the Glimepride and keeping the patient on sliding scale insulin for her diabetes. Reviewed her echo results. She does have stage I diastolic dysfunction. Please discuss with cardiology further about any additional medications such as diuretic with her hx of Moderate . Continue other current management. DV px; Hep sq. Thank you will follow.
[2017-09-23 09:00] VITALS: BP 118/78
--- NOTE | 2017-09-23 09:00 | PN- General Surgery ---
Subjective Subjective: 76 Y/O FEMALE, seen and appears to be in good spirits. Patient states she has mild abdominal bloating and discoomfort that is unchanged from prior days. She is tolarating Pos and has had small Bms. Objective Vital Signs and I&Os Vital Signs Date Time Temp Pulse Resp B/P B/P Pulse O2 O2 Flow FiO2 Mean Ox Delivery Rate 09/23 0707 98.6 106 20 118/62 94 09/22 2221 98.8 93 20 110/64 96 Room Air 09/22 1947 Room Air Room Air 09/22 1358 97.7 95 18 124/70 98 Room Air Intake & Output 09/23 1600 09/23 0800 09/23 0000 09/22 1600 09/22 0800 09/22 0000 Intake Total 120 250 240 Output Total 300 250 300 Balance -180 0 -60 Intake, Oral 120 250 240 Number 1 Bowel Movements Output, Urine 300 250 300 Patient 201 lb 200 lb 202 lb Weight Physical Exam: VVS, afebrile A+O in good spirits feels well, understands proposed upcoming surgery. chest - CTA symmetric Heart - RRR without MRG ABD - obese, soft without distention, mildly tender throughout, no guarding or rebound pos BS. extremity - mild dependent edema, unchanged calves soft bilaterally. Assessment/Plan Assessment/Plan 76-year-old female PMHx sig for hypertension, CAD, hyperlipidemia, diabetes mellitus type 2, heart murmur, obesity and hypothyroidism Plan -diverting colostomy secondary to a circumferential, friable, 360, nodular , ulcerated, necrotic rectal lesion, starting just past the dentate line and extending 10 cm, 1. Continue low residue diabetic diet, will need to be clears all day tuesday, nothing by mouth after midnight on Tuesday for procedure Tuesday When necessary analgesics and antiemetics, bowel regimen ordered GI/DVT prophylaxis is ordered ambulation, incentive spirometry, turn, cough and deep breathing techniques Core Measures Venous Thromboembolism VTE Risk Factors No risk factors No Mechanical VTE Prophylaxis d/t N/A MechProphylax Ordered No VTE Pharm Prophylaxis d/t NA PharmProphylax ordered
--- NOTE | 2017-09-23 09:40 | ECHOCARDIOGRAM REPORT ---
MOHAMUD KUMARI Age: 76 : 1940 Gender: F Exam Date: 09/22/2017 14:36 Exam Location: [facility] Ht (in): 62 Wt (lb): 202 BSA: 2.05 BP: 126 / 70 Ordering Physician: Leidy Mckenzie Referring Physician: Leidy Mckenzie Technologist: Justin Kilgore RUST Room Number: [id number] Indications: Pre-Op Surgery Rhythm: Atrial fibrillation Technical Quality: Fair FINDINGS Left Ventricle Normal global left ventricular size, wall thickness, systolic function with no obvious regional wall motion abnormalities. Normal left ventricular ejection fraction estimated at 60-65%. Abnormal relaxation filling pattern of the left ventricle for age (stage 1 diastolic dysfunction). Right Ventricle Normal right ventricular size and function. Right Atrium Normal right atrial size. Left Atrium Left atrial size at the upper limits of normal. Mitral Valve Mild mitral annular calcification. Trace to mild mitral regurgitation. Aortic Valve Diffuse thickening of the aortic valve cusps with reduced excursion. Moderate aortic stenosis. Tricuspid Valve Tricuspid valve is normal in structure and function. Mild tricuspid regurgitation. Right ventricular systolic pressure estimated to be at upper limits of normal at 34 mmHg. Pulmonic Valve Pulmonic valve not well visualized, grossly normal. Pericardium No pericardial effusion. Great Vessels Normal size aortic root. CONCLUSIONS Normal left and right ventricular systolic function. Moderate Aortic stenosis. Perico Onofre M.D. (Electronically Signed) Final Date: 23 September 2017 09:40 MEASUREMENTS (Male / Female) Normal Values 2D ECHO LV Diastolic Diameter PLAX 4.7 cm 4.2 - 5.9 / 3.9 - 5.3 cm LV Systolic Diameter PLAX 3.5 cm 2.1 - 4.0 cm LV Fractional Shortening PLAX 25.5 % 25 - 46 % LV Ejection Fraction 2D Teich 50.3 % IVS Diastolic Thickness 0.9 cm LVPW Diastolic Thickness 0.8 cm LV Relative Wall Thickness 0.4 LVOT Diameter 1.8 cm Aortic Root Diameter 2.3 cm LA Systolic Diameter LX 3.4 cm 3.0 - 4.0 / 2.7 - 3.8 cm LV Ejection Fraction MOD BP 65.5 % >= 55 % LV Cardiac Index MOD BP 1600.4 cm/minm LV Diastolic Length 4C 6.3 cm 6.9 - 10.3 cm LV Diastolic Area 4C 20.8 cm LV Diastolic Volume MOD 4C 56.0 cm LV Ejection Fraction MOD 4C 64.3 % LV Stroke Volume MOD 4C 36.0 cm LV Cardiac Index MOD 4C 1600.4 cm/minm LV Systolic Length 4C 6.0 cm LV Systolic Area 4C 12.0 cm LV Systolic Volume MOD 4C 20.0 cm LV Ejection Fraction MOD 2C 67.3 % LV Cardiac Index MOD 2C 1467.0 cm/minm LV Diastolic Volume 4C AL 58.2 cm 85 - 139 / 69 - 109 cm LV Systolic Volume 4C AL 20.4 cm LV Ejection Fraction 4C AL 65.0 % LV Stroke Volume 4C AL 37.8 cm LV Cardiac Index 4C AL 1681.3 cm/minm LV Ejection Fraction 2C AL 69.2 % LV Cardiac Index 2C AL 1509.3 cm/minm DOPPLER AV Peak Velocity 267.0 cm/s AV Peak Gradient 28.5 mmHg AV Mean Velocity 174.0 cm/s AV Mean Gradient 14.0 mmHg AV Velocity Time Integral 46.5 cm LVOT Peak Velocity 113.0 cm/s LVOT Peak Gradient 5.1 mmHg AV Area Cont Eq pk 1.1 cm Mitral E Point Velocity 70.1 cm/s Mitral A Point Velocity 124.0 cm/s Mitral E to A Ratio 0.6 TR Peak Velocity 301.0 cm/s TR Peak Gradient 36.2 mmHg LV E' Lateral Velocity 8.9 cm/s Mitral E to LV E' Lateral Ratio 7.9 LV E' Septal Velocity 6.9 cm/s Mitral E to LV E' Septal Ratio 10.1
--- NOTE | 2017-09-23 11:22 | Cons- Cardiology ---
General Information and HPI Consulting Request Date of Consult: 09/23/17 Requested By: Destin Montoya Jr., DO Reason for Consult: cad, pre-op Source of Information: patient, old records History of Present Illness: This is a 76-year-old female with a past medical history of coronary artery disease with remote PCI x 2 (last 2010), diabetes, hypertension, hypothyroidism, and remote smoking history who was recently admitted with increasing weakness along with the blood-tinged stool and was found to have metastatic carcinoma likely of rectal origin. She was found to have a ulcerated rectal mass. She is now admitted to [facility] with plan for elective diverting colostomy. She reports no chest pain; does have a some mild shortness of breath but feels this is grossly unchanged for some time. She has not seen her wind farm electrical systems designer in many years. She reports that she is not taking aspirin daily. Denies any orthopnea, paroxysmal nocturnal dyspnea, increasing edema, palpitations, or syncope. She is able to ambulate and feels she is mainly limited by her recent weakness. She did report chest discomfort in the past prior to her remote PCI but no recurrence of those symptoms since then. A recent CT scan showed no evidence of pulmonary embolism. Allergies/Medications Allergies: Coded Allergies: No Known Drug Allergies (UNKNOWN 09/22/17) shellfish derived (Intermediate, G.I. DISTRESS FROM SCALLOPS 09/14/17) Home Med List: Atorvastatin Calcium 40 MG TABLET 1 TAB PO DAILY CHOLESTROL (Reported) Empagliflozin (Jardiance) 10 MG TABLET 1 TAB PO Q48 DM (Reported) Glimepiride 4 MG TABLET 1 TAB PO DAILY DM (Reported) Levothyroxine Sodium 25 MCG TABLET 1 TAB PO DAILY THYROID (Reported) Quinapril HCl 20 MG TABLET 1 TAB PO DAILY HTN (Reported) Sitagliptin Phos/Metformin HCl (Janumet 50-1,000 MG Tablet) 50 MG-1,000 MG TABLET 1 TAB PO BID DM (Reported) Current Medications: Current Medications Sig/Rose Start time Last Medication Dose Route Stop Time Status Admin Acetaminophen 1,000 MG Q8P PRN 09/22 1145 AC 09/22 PO 1715 Atorvastatin Calcium 40 MG 1700 09/22 1700 AC 09/22 PO 1715 Diphenhydramine HCl 50 MG Q6P PRN 09/22 1145 AC IV Docusate Sodium 100 MG DAILY 09/22 1246 AC 09/22 PO 1721 Glimepiride 4 MG DAILY AC 09/23 0700 AC 09/23 PO 0643 Heparin Sodium 5,000 UNIT Q8 09/22 1400 AC 09/22 (Porcine) SC 2217 Insulin Human Regular 0 TIDAC/HS 09/22 1200 AC 09/22 SC 1721 Levothyroxine Sodium 0.025 MG DAILY AC 09/23 0700 AC 09/23 PO 0643 Lisinopril 20 MG DAILY 09/23 1000 AC PO Morphine Sulfate 2 MG Q2P PRN 09/22 1145 AC IV Ondansetron HCl 4 MG Q6 09/22 1200 AC 09/23 IV 0643 Oxycodone/ 1 TAB Q4P PRN 09/22 1145 AC 09/22 Acetaminophen PO 202 Pantoprazole Sodium 40 MG DAILY 09/23 1000 AC IV Zinc Oxide 1 BROWN BID 09/22 1514 AC 09/22 TOP 2217 Review of Systems Review of Systems: Review of systems as per HPI. The remainder of a 10 point review of systems was reviewed and was otherwise negative. Past History Medical History Blood Transfusion Hx: No EENT: NONE Cardiovascular: CAD (s/p stents), hypertension, hyperlipidemia, HEART MURMUR Respiratory: NONE Gastrointestinal: COLORECTAL CANCER Hepatic: CHRIS TO LIVE/LUNGS Renal: nephrolithiasis Musculoskeletal: NONE Psychiatric: NONE Endocrine: diabetes, hypothyroidism, obesity Blood Disorders: NONE Cancer(s): colon/rectal cancer LAYER OUT/Reproductive: NONE Surgical History Surgical History: non-contributory Family History Relations & Conditions If Any: FATHER FH: heart disease MOTHER FH: cancer of digestive organ BROTHER FH: heart attack SISTER FHx: lung cancer BROTHER Psychosocial History Who Do You Live With? self Services at Home: None Primary Language: Italian Smoking Status: Former Smoker (2ppd x 40 years ) ETOH Use: denies use Illicit Drug Use: denies illicit drug use Functional Ability ADLs Independent: dressing, eating, toileting, bathing. Ambulation: independent IADLs Independent: shopping, housework, finances, telephone, medication admin. Exam & Diagnostic Data Vital Signs and I&O Vital Signs Date Time Temp Pulse Resp B/P B/P Pulse O2 O2 Flow FiO2 Mean Ox Delivery Rate 09/23 0900 98 118/78 09/23 0707 98.6 106 20 118/62 94 09/22 2221 98.8 93 20 110/64 96 Room Air 09/22 1947 Room Air Room Air 09/22 1358 97.7 95 18 124/70 98 Room Air Intake & Output 09/23 1600 09/23 0809/23 0000 09/22 1600 09/22 0800 09/22 0000 Intake Total 120 250 240 Output Total 300 250 300 Balance -180 0 -60 Intake, Oral 120 250 240 Number 1 Bowel Movements Output, Urine 300 250 300 Patient 201 lb 200 lb 202 lb Weight Physical Exam: General: no apparent distress. Alert. Eyes: No obvious scleral icterus. HEENT: No jugular venous distention or abnormal jugular venous pulsations. Cardiovascular: Normal intensity S1/S2. 2 out of 6 systolic murmur Respiratory: Lungs clear to auscultation bilaterally. Abdomen: no guarding or rebound tenderness. Musculoskeletal: No clubbing or cyanosis noted; 1+ lower extremity edema Skin: Warm Neurologic: No gross focal deficits noted. Labs/Tha Results: Laboratory Tests Creatinine 0.4 Sodium 134 Hemoglobin 8.4 Sodium Cancelled, Potassium Cancelled, Chloride Cancelled, Carbon Dioxide Cancelled, Anion Gap Cancelled, BUN Cancelled, Creatinine Cancelled, BUN/ Creatinine Ratio Cancelled, Total Bilirubin Cancelled, Direct Bilirubin Cancelled, AST Cancelled, ALT Cancelled, Alkaline Phosphatase Cancelled, Total Protein Cancelled, Albumin Cancelled, CBC w Diff Cancelled, WBC Cancelled, RBC Cancelled, Hgb Cancelled, Hct Cancelled, MCV Cancelled, MCH Cancelled, MCHC Cancelled, RDW Cancelled, Plt Count Cancelled, MPV Cancelled Laboratory Tests 09/22 1138 Chemistry Sodium Cancelled Potassium Cancelled Chloride Cancelled Carbon Dioxide Cancelled Anion Gap Cancelled BUN Cancelled Creatinine Cancelled BUN/Creatinine Ratio Cancelled Total Bilirubin Cancelled Direct Bilirubin Cancelled AST Cancelled ALT Cancelled Alkaline Phosphatase Cancelled Total Protein Cancelled Albumin Cancelled Hematology CBC w Diff Cancelled WBC Cancelled RBC Cancelled Hgb Cancelled Hct Cancelled MCV Cancelled MCH Cancelled MCHC Cancelled RDW Cancelled Plt Count Cancelled MPV Cancelled Diagnostic Data EKG Results Recent ECG tracing was personally reviewed and showed sinus tachycardia with normal R-wave progression and nonspecific STT wave abnormality CXR Results Multiple large pulmonary nodules bilaterally for which a contrast enhanced CT of the chest is recommended for further assessment. Other Results Echocardiogram Normal left and right ventricular systolic function. Moderate Aortic stenosis. Assessment/Plan Assessment/Plan 1. 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 History of coronary artery disease with remote PCI x 2 (last 2010) 3. Anemia/weakness 4. History of hypertension 5. History of diabetes/hypothyroidism 6. Remote smoking history 7. Moderate aortic stenosis by echocardiogram The patient currently shows no evidence of acute coronary syndrome or decompensated congestive heart failure; her echocardiogram shows normal biventricular function with moderate aortic stenosis. She currently represents moderately elevated cardiac risk for the planned surgery given her CAD history with moderate aortic stenosis. If she elects to proceed with surgery at the acknowledged risk I would recommend that she be monitored on telemetry for 24 hours postsurgery. She should be continued on statin therapy and should be on low dose enteric coated aspirin in the future when cleared from a GI perspective. Monitor hemodynamics and fluid status closely postsurgery. Miguelito Langley MD [facility] Consult Acknowledgment - Thank you for your consult request.
[2017-09-23 15:30] VITALS: BP 120/64
[2017-09-23 17:53] LABS: ABSOLUTE BASOPHIL COUNT 0 /CUMM (0.0-0.2); ABSOLUTE EOSINOPHIL COUNT 0 /CUMM (0.0-0.7); ABSOLUTE GRANULOCYTE CT 13.1 /CUMM (1.4-6.5); ABSOLUTE LYMPH COUNT 2.2 /CUMM (1.2-3.4); ABSOLUTE MONOCYTE COUNT 1.7 /CUMM (0.10-0.60); BASOPHIL % 0 % (0.0-2.0); EOSINOPHIL % 0.2 % (0-5); GRANULOCYTE % 77.1 % (42.2-75.2); HEMATOCRIT 27.5 % (37-47); MEAN CORPUSCULAR HGB 22.8 PG (27.0-31.0); MEAN CORPUSCULAR HGB CONC 31.1 G/DL (33.0-37.0); MEAN CORPUSCULAR VOLUME 73.4 FL (81.0-99.0); MEAN PLATELET VOLUME 6.5 FL (7.4-10.4); PLATELET COUNT 416 /CUMM (130-400); RBC DISTRIBUTION WIDTH 22.2 % (11.5-14.5); RED BLOOD CELL CT 3.75 /CUMM (4.20-5.40)
[2017-09-23 20:40] VITALS: BP 118/64
[2017-09-24 07:03] VITALS: BP 148/72
--- NOTE | 2017-09-24 09:17 | PN- General Surgery ---
See Addendum Subjective Subjective: Patient reports intermittent discomfort in her lower abdomen, right side greater than left, controlled with current pain regimen. Tolerating mostly clear diet without any nausea or vomiting. She states she "knows what I can eat". Continues to pass flatus and had a BM yesterday. Offer no other complaints. Objective Vital Signs and I&Os Vital Signs Date Time Temp Pulse Resp B/P B/P Pulse O2 O2 Flow FiO2 Mean Ox Delivery Rate 09/24 0703 98.4 105 18 148/72 96 09/23 2040 99.2 104 18 118/64 94 Room Air 09/23 1530 98.7 99 20 120/64 95 Room Air 09/23 1105 92 122/80 Intake & Output 09/24 1600 09/24 0800 09/24 0000 09/23 1600 09/23 0800 09/23 0000 Intake Total 240 200 690 120 250 Output Total 25 350 600 300 250 Balance -25 240 -150 90 -180 0 Intake, IV 40 Intake, Oral 240 200 650 120 250 Number 0 1 Bowel Movements Output, Urine 25 350 600 300 250 Patient 202 lb 201 lb Weight Physical Exam: Gen - nad Cardiac - S1S2, +murmur Lungs - CTAB Abd - soft, obese, hypoactive bs, mildly tender in right and left lower quadrant , no rebound or guarding noted Current Medications: Current Medications Sig/Rose Start time Last Medication Dose Route Stop Time Status Admin Acetaminophen 1,000 MG Q8P PRN 09/22 1145 AC 09/22 PO 1715 Atorvastatin Calcium 40 MG 1700 09/22 1700 AC 09/23 PO 1641 Diphenhydramine HCl 50 MG Q6P PRN 09/22 1145 AC IV Docusate Sodium 100 MG DAILY 09/22 1246 AC 09/23 PO 1105 Glimepiride 4 MG DAILY AC 09/23 0700 DC 09/23 PO 0643 Heparin Sodium 5,000 UNIT Q8 09/22 1400 AC 09/24 (Porcine) SC 0516 Insulin Aspart 0 TIDAC 09/23 1700 AC SC Insulin Human Regular 0 TIDAC/HS 09/22 1200 DC 09/22 SC 1721 Levothyroxine Sodium 0.025 MG DAILY AC 09/23 0700 AC 09/24 PO 0516 Lisinopril 20 MG DAILY 09/23 1000 AC 09/23 PO 1105 Morphine Sulfate 2 MG Q2P PRN 09/22 1145 AC IV Ondansetron HCl 4 MG Q6 09/22 1200 AC 09/24 IV 0516 Oxycodone/ 1 TAB Q4P PRN 09/22 1145 AC 09/24 Acetaminophen PO 0747 Pantoprazole Sodium 40 MG DAILY 09/23 1000 AC 09/23 IV 1105 Patient Medication 1 ED ONE ONE 09/23 1345 DC 09/23 Teaching ED 09/23 1346 1404 Zinc Oxide 1 BROWN BID 09/22 1514 AC 09/23 TOP 2148 Results Last 48 Hours of Labs: Laboratory Tests 09/23 09/22 1717 1138 Chemistry Sodium (137 - 145 mmol/L) 133 L Cancelled Potassium (3.5 - 5.1 mmol/L) 3.8 Cancelled Chloride (98 - 107 mmol/L) 96 L Cancelled Carbon Dioxide (22 - 30 mmol/L) 29 Cancelled Anion Gap (5 - 16) 8 Cancelled BUN (7 - 17 mg/dL) 11 Cancelled Creatinine (0.5 - 1.0 mg/dL) 0.6 Cancelled Estimated GFR (>60 ml/min) > 60 BUN/Creatinine Ratio (7 - 25 %) 18.3 Cancelled Total Bilirubin Cancelled Direct Bilirubin Cancelled AST Cancelled ALT Cancelled Alkaline Phosphatase Cancelled Total Protein Cancelled Albumin Cancelled Hematology CBC w Diff NO MAN DIFF REQ Cancelled WBC (4.8 - 10.8 /CUMM) 17.0 H Cancelled RBC (4.20 - 5.40 /CUMM) 3.75 L Cancelled Hgb (12.0 - 16.0 G/DL) 8.6 L Cancelled Hct (37 - 47 %) 27.5 L Cancelled MCV (81.0 - 99.0 FL) 73.4 L Cancelled MCH (27.0 - 31.0 PG) 22.8 L Cancelled MCHC (33.0 - 37.0 G/DL) 31.1 L Cancelled RDW (11.5 - 14.5 %) 22.2 H Cancelled Plt Count (130 - 400 /CUMM) 416 H Cancelled MPV (7.4 - 10.4 FL) 6.5 L Cancelled Gran % (42.2 - 75.2 %) 77.1 H Lymphocytes % (20.5 - 51.1 %) 12.9 L Monocytes % (1.7 - 9.3 %) 9.8 H Eosinophils % (0 - 5 %) 0.2 Basophils % (0.0 - 2.0 %) 0 Absolute Granulocytes (1.4 - 6.5 /CUMM) 13.1 H Absolute Lymphocytes (1.2 - 3.4 /CUMM) 2.2 Absolute Monocytes (0.10 - 0.60 /CUMM) 1.7 H Absolute Eosinophils (0.0 - 0.7 /CUMM) 0 Absolute Basophils (0.0 - 0.2 /CUMM) 0 Recent Imaging Studies: Echocardiogram - Normal left and right ventricular systolic function, moderate aortic stenosis. Assessment/Plan Assessment/Plan 76 F with metastatic rectal ca, she is scheduled to have a diverting colostomy on 09/26 and has been cleared by medicine and cardiology Low residue diabetic diet Clears liquids on tuesday, then NPO after midnight Analgesics/antiemetics prn Colace daily GI/DVT ppx on board Home meds on board, except diabetic meds Cont ISS, fingersticks tid ac/hs Encourage ISS and oob ambulation Appreciate medicine and cardiology's involvement Monitor in tele postop per cardiology Will d/w attending Core Measures Venous Thromboembolism VTE Risk Factors No risk factors No Mechanical VTE Prophylaxis d/t N/A MechProphylax Ordered No VTE Pharm Prophylaxis d/t NA PharmProphylax ordered
--- NOTE | 2017-09-24 09:31 | PN- Att Addend ---
Attending Addendum Attending Brief Note Pt was seen and evaluated. Chart reviewed. Briefly, she is a 76-year-old lady with PMHx of hypertension, hypothyroidism, diabetes, CAD s/p stent, recently admitted to [facility] with generalized weakness, loose stools and unintentional weight loss and found to have metastatic disease from poorly differentiated rectal carcinoma. Vital Signs Date Time Temp Pulse Resp B/P B/P Pulse O2 O2 Flow FiO2 Mean Ox Delivery Rate 09/24 0703 98.4 105 18 148/72 96 09/23 2040 99.2 104 18 118/64 94 Room Air 09/23 1530 98.7 99 20 120/64 95 Room Air 09/23 1105 92 122/80 Intake & Output 09/24 1600 09/24 0800 09/24 0000 Intake Total 240 200 Output Total 25 350 Balance -25 240 -150 Intake, Oral 240 200 Output, Urine 25 350 Patient 91.796 kg Weight GEN: sitting comfortably, AAOx3 HEENT: moist mucosa LUNGS: CTA HEART: s1s2 ABD: soft Laboratory Tests 09/23/17 1717: Anion Gap 8, Estimated GFR > 60, BUN/Creatinine Ratio 18.3, CBC w Diff NO MAN DIFF REQ, RBC 3.75 L, MCV 73.4 L, MCH 22.8 L, MCHC 31.1 L, RDW 22.2 H, MPV 6.5 L, Gran % 77.1 H, Lymphocytes % 12.9 L, Monocytes % 9.8 H, Eosinophils % 0.2, Basophils % 0, Absolute Granulocytes 13.1 H, Absolute Lymphocytes 2.2, Absolute Monocytes 1.7 H, Absolute Eosinophils 0, Absolute Basophils 0 A/P: Patient is scheduled for diverting Colostomy with Dr. Montoya on Tuesday. Medical consult was obtained for medical clearance. Evaluated by Cards. Please see their recommendations Will cont to follow
[2017-09-24 10:53] VITALS: BP 140/60
[2017-09-24 13:58] VITALS: BP 128/50
[2017-09-24 15:30] VITALS: BP 124/56
--- NOTE | 2017-09-24 15:38 | Event Note ---
Event Note Event Note: Rapid Response called at 15:26 for mechanical lower extremitity weakness. Patient states her legs gave out suddenly as she was getting off the bedside commode and slid to the floor with assistance of the MST. Currently, she denies any pain, dizziness, lightheadedness, pre-syncope, syncope or head trauma. Medical team and cardiology are at bedside. On exam, she is tachycardic to 120s, BP 126/56, RR 20 and O2 sat 96% on ra. She is sitting upright in bed in nad, abdomen is benign and extremities are without significant edema or calf tenderness, sensory intact and motor is intact in UE and decreased in LE, she moves all extremities. EKG was obtained and patient will be transferred to telemetry per cardiology for close monitoring. LE weakness likely related to deconditioned state. Will order PT. Dr. Carr, who is covering for Dr. Montoya was notified.
[2017-09-24 18:12] VITALS: BP 126/60
[2017-09-24 21:33] VITALS: BP 130/60
[2017-09-25 07:02] VITALS: BP 128/50
[2017-09-25 08:19] LABS: ABSOLUTE BASOPHIL COUNT 0 /CUMM (0.0-0.2); ABSOLUTE EOSINOPHIL COUNT 0 /CUMM (0.0-0.7); ABSOLUTE GRANULOCYTE CT 18.5 /CUMM (1.4-6.5); ABSOLUTE LYMPH COUNT 1.9 /CUMM (1.2-3.4); BASOPHIL % 0 % (0.0-2.0); EOSINOPHIL % 0.1 % (0-5); GRANULOCYTE % 82.3 % (42.2-75.2); HEMATOCRIT 25.2 % (37-47); MEAN CORPUSCULAR HGB CONC 31.4 G/DL (33.0-37.0); PLATELET COUNT 424 /CUMM (130-400); RBC DISTRIBUTION WIDTH 21.8 % (11.5-14.5); RED BLOOD CELL CT 3.45 /CUMM (4.20-5.40); WHITE BLOOD CELL COUNT 22.5 /CUMM (4.8-10.8)
[2017-09-25 08:58] VITALS: BP 136/54
--- NOTE | 2017-09-25 09:22 | PN- Att Addend ---
Attending Addendum Attending Brief Note Pt was seen and evaluated. Chart reviewed. Events from overnight noted. Was tx to Tele floor. Currently doing OK, just reports overall weakness Vital Signs Date Time Temp Pulse Resp B/P B/P Pulse O2 O2 Flow FiO2 Mean Ox Delivery Rate 09/25 0859 105 136/54 09/25 0858 105 136/54 09/25 0702 99.0 113 20 128/50 92 09/24 2133 99.3 99 20 130/60 91 Room Air 09/24 1812 98.6 97 18 126/60 95 09/24 1530 98.7 120 20 124/56 09/24 1358 99.4 98 18 128/50 94 Room Air 09/24 1053 98.8 104 20 140/60 93 Room Air Intake & Output 09/25 1600 09/25 0800 09/25 0000 Intake Total 110 480 Output Total Balance 110 480 Intake, IV 10 Intake, Oral 100 480 GEN: AAOx3 HEENT: dry mucosa LUNGS: CTAB HEART:s1s2 ABD: soft, +mild TTP EXT: 5/5 strength b/l LE Laboratory Tests 09/25/17 0605: Anion Gap 9, Estimated GFR > 60, BUN/Creatinine Ratio 23.3, Magnesium 1.6, CBC w Diff NO MAN DIFF REQ, RBC 3.45 L, MCV 73.0 L, MCH 23.0 L, MCHC 31.4 L, RDW 21.8 H, MPV 7.0 L, Gran % 82.3 H, Lymphocytes % 8.6 L, Monocytes % 9.0, Eosinophils % 0.1, Basophils % 0, Absolute Granulocytes 18.5 H, Absolute Lymphocytes 1.9, Absolute Monocytes 2.0 H, Absolute Eosinophils 0, Absolute Basophils 0 A/P: Briefly, she is a 76-year-old lady with PMHx of hypertension, hypothyroidism, diabetes, CAD s/p stent, recently admitted to [facility] with generalized weakness, loose stools and unintentional weight loss and found to have metastatic disease from poorly differentiated rectal carcinoma. Patient is scheduled for diverting Colostomy with Dr. Montoya on Tuesday. Medical consult was obtained for medical clearance. Evaluated by Cards. Please see their recommendations Will cont to follow
--- NOTE | 2017-09-25 10:03 | PN- General Surgery ---
See Addendum Subjective Subjective: Events of yesterday noted. Rapid response called due to weakness when oob to commode resulting in patient being lowered to floor. No reported trauma, did not hit head, did not lose consciousness due to fall or syncope. Noted improvement. Moved to telemetry and had asymptomatic runs of svt. Presently denies chest pain, shortness of breath and difficulty breathig. Denies vomitting, was given zofran this am. Denies dizziness and weakness. Was able to get oob to commode this am without difficulty. Objective Vital Signs and I&Os Vital Signs Date Time Temp Pulse Resp B/P B/P Pulse O2 O2 Flow FiO2 Mean Ox Delivery Rate 09/25 0859 105 136/54 09/25 0858 105 136/54 09/25 0800 Room Air 09/25 0702 99.0 113 20 128/50 92 09/24 2133 99.3 99 20 130/60 91 Room Air 09/24 1812 98.6 97 18 126/60 95 09/24 1530 98.7 120 20 124/56 09/24 1358 99.4 98 18 128/50 94 Room Air 09/24 1053 98.8 104 20 140/60 93 Room Air Intake & Output 09/25 1600 09/25 0800 09/25 0000 09/24 1600 09/24 0800 09/24 0000 Intake Total 110 480 540 240 200 Output Total 125 350 Balance 110 480 415 240 -150 Intake, IV 10 60 Intake, Oral 100 480 480 240 200 Number 1 Bowel Movements Output, Urine 125 350 Patient 202 lb 202 lb Weight Physical Exam: General: Alert and oriented x3, no acute distress Cardiac: Systolic murmur noted, rrr Pulm: C T A bilaterally, non-labored respiratory effort Extremiteis: Neurovascular status in tact, bilateral caves soft and non-tender ABD: Some right sided tenderness noted, unchanged per patient, obese, non- distended, no guarding or rebounding, no peritonitic signs Assessment/Plan Assessment/Plan This is a 76 year old female with a pmh signficant for rectal ca. Had rr last night and subsequent runs of svt to 180s, cardiology consulted, recommendations appreciated, pt on telemetry for monitoring. Anticipate OR tomorrow. -Clear liquid diet today -NPO p mn for anticipated surgery -IV hydration to begin when npo -Can continue oob -IS and ambulation recommended -Continue gi/dvt ppx with protonix/sub q heparin Will discuss with Dr. Montoya Core Measures Venous Thromboembolism VTE Risk Factors No risk factors No Mechanical VTE Prophylaxis d/t N/A MechProphylax Ordered No VTE Pharm Prophylaxis d/t NA PharmProphylax ordered
--- NOTE | 2017-09-25 12:44 | PN- Cardiology ---
Subjective Subjective: Patient is laying flat and resting comfortably. Denies chest pain, dyspnea, or palpitations currently. Objective Vital Signs and I&Os Vital Signs Date Time Temp Pulse Resp B/P B/P Pulse O2 O2 Flow FiO2 Mean Ox Delivery Rate 09/25 0859 105 136/54 09/25 0858 105 136/54 09/25 0800 Room Air 09/25 0702 99.0 113 20 128/50 92 09/24 2133 99.3 99 20 130/60 91 Room Air 09/24 1812 98.6 97 18 126/60 95 09/24 1530 98.7 120 20 124/56 09/24 1358 99.4 98 18 128/50 94 Room Air Intake & Output 09/25 1600 09/25 0800 09/25 0000 09/24 1600 09/24 0800 09/24 0000 Intake Total 110 480 540 240 200 Output Total 125 350 Balance 110 480 415 240 -150 Intake, IV 10 60 Intake, Oral 100 480 480 240 200 Number 1 Bowel Movements Output, Urine 125 350 Patient 202 lb 202 lb Weight Physical Exam: General: no apparent distress. Alert. Eyes: No obvious scleral icterus. HEENT: No jugular venous distention or abnormal jugular venous pulsations. Cardiovascular: Normal intensity S1/S2. 2 out of 6 systolic murmur Respiratory: Lungs clear to auscultation bilaterally. Abdomen: no guarding or rebound tenderness. Musculoskeletal: No clubbing or cyanosis noted; 1+ lower extremity edema Skin: Warm Neurologic: No gross focal deficits noted. Current Medications: Current Medications Sig/Rose Start time Last Medication Dose Route Stop Time Status Admin Acetaminophen 1,000 MG Q8P PRN 09/22 1145 AC 09/22 PO 1715 Atorvastatin Calcium 40 MG 1700 09/22 1700 AC 09/24 PO 1737 Diphenhydramine HCl 50 MG Q6P PRN 09/22 1145 AC IV Docusate Sodium 100 MG DAILY 09/22 1246 AC 09/25 PO 0859 Heparin Sodium 5,000 UNIT Q8 09/22 1400 AC 09/25 (Porcine) SC 0530 Insulin Aspart 0 TIDAC 09/23 1700 AC 09/24 SC 1656 Levothyroxine Sodium 0.025 MG DAILY AC 09/23 0700 AC 09/25 PO 0531 Lisinopril 20 MG DAILY 09/23 1000 AC 09/25 PO 0859 Metoprolol Tartrate 12.5 MG BID 09/25 1110 AC PO Morphine Sulfate 2 MG Q2P PRN 09/22 1145 AC IV Ondansetron HCl 4 MG Q6 PRN 09/25 0511 AC 09/25 IV 0530 Ondansetron HCl 4 MG Q6 09/22 1200 DC 09/24 IV 1737 Oxycodone/ 1 TAB Q4P PRN 09/22 1145 AC 09/25 Acetaminophen PO 1009 Pantoprazole Sodium 40 MG DAILY 09/23 1000 AC 09/25 IV 0859 Zinc Oxide 1 BROWN BID 09/22 1514 09/24 [facility] 1045 Results Last 48 Hrs of Labs/Mics: Laboratory Tests 09/25/17 0605: Anion Gap 9, Estimated GFR > 60, BUN/Creatinine Ratio 23.3, Magnesium 1.6, CBC w Diff NO MAN DIFF REQ, RBC 3.45 L, MCV 73.0 L, MCH 23.0 L, MCHC 31.4 L, RDW 21.8 H, MPV 7.0 L, Gran % 82.3 H, Lymphocytes % 8.6 L, Monocytes % 9.0, Eosinophils % 0.1, Basophils % 0, Absolute Granulocytes 18.5 H, Absolute Lymphocytes 1.9, Absolute Monocytes 2.0 H, Absolute Eosinophils 0, Absolute Basophils 0 09/23/17 1717: Anion Gap 8, Estimated GFR > 60, BUN/Creatinine Ratio 18.3, CBC w Diff NO MAN DIFF REQ, RBC 3.75 L, MCV 73.4 L, MCH 22.8 L, MCHC 31.1 L, RDW 22.2 H, MPV 6.5 L, Gran % 77.1 H, Lymphocytes % 12.9 L, Monocytes % 9.8 H, Eosinophils % 0.2, Basophils % 0, Absolute Granulocytes 13.1 H, Absolute Lymphocytes 2.2, Absolute Monocytes 1.7 H, Absolute Eosinophils 0, Absolute Basophils 0 Recent Imaging Studies: Telemetry tracings were personally reviewed and shows sinus rhythm and sinus tachycardia with a short supraventricular burst Assessment/Plan Assessment/Plan 1. 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 History of coronary artery disease with remote PCI x 2 (last 2010) 3. Anemia/weakness 4. History of hypertension 5. History of diabetes/hypothyroidism 6. Remote smoking history 7. Moderate aortic stenosis by echocardiogram 8. Short SVT burst on telemetry The patient is resting comfortably. Given the sinus tachycardia with short SVT bursts we have recommended adding low-dose metoprolol twice daily. She did not have any evidence of pulmonary embolism on CT scan. She currently represents moderately elevated cardiac risk for the planned surgery given her CAD history with moderate aortic stenosis. Miguelito Langley MD [facility] Continue telemetry? Yes
[2017-09-25 14:09] VITALS: BP 120/50
[2017-09-25 23:00] VITALS: BP 124/56
[2017-09-26 06:11] LABS: ABSOLUTE BASOPHIL COUNT 0 /CUMM (0.0-0.2); ABSOLUTE EOSINOPHIL COUNT 0.1 /CUMM (0.0-0.7); EOSINOPHIL % 0.3 % (0-5)
[2017-09-26 06:15] LABS: ABSOLUTE GRANULOCYTE CT 15.7 /CUMM (1.4-6.5); ABSOLUTE LYMPH COUNT 2.8 /CUMM (1.2-3.4); ABSOLUTE MONOCYTE COUNT 2.3 /CUMM (0.10-0.60); BASOPHIL % 0.1 % (0.0-2.0); GRANULOCYTE % 75.2 % (42.2-75.2); HEMATOCRIT 29.4 % (37-47); MEAN CORPUSCULAR HGB 23.8 PG (27.0-31.0); MEAN CORPUSCULAR HGB CONC 31.8 G/DL (33.0-37.0); MEAN CORPUSCULAR VOLUME 74.8 FL (81.0-99.0); MEAN PLATELET VOLUME 6.5 FL (7.4-10.4); PLATELET COUNT 353 /CUMM (130-400); RBC DISTRIBUTION WIDTH 20.8 % (11.5-14.5); RED BLOOD CELL CT 3.93 /CUMM (4.20-5.40); WHITE BLOOD CELL COUNT 20.9 /CUMM (4.8-10.8)
[2017-09-26 06:41] VITALS: BP 138/60
--- NOTE | 2017-09-26 08:48 | PN- Medicine Consult ---
Sidney Perera 09/26/17 0831: Assessment/PlanMedical Consult Assessment/Plan Assessment: The patient is a 76-year-old woman with a past medical history of obesity, diabetes, HTN, hypothyroidism, CAD post cardiac stent x 2- 2006, hx renal stones , former 40 pk yr cigarette smoker quit in 1977, positive family history of colon cancer, winth no prior EGD or colonoscopy, admitted to [facility] on 09/14/17 with complaints of 1 year of unintentional 30 pound weight loss, one month of weakness, progressive shortness of breath, loose stools, and occasionally pink tinged/scant rectal bleeding she was found to have enlarged liver with multiple lesions consistent with metastatic disease and numerous pulmonary nodules on the CAT scan abdomen/pelvis. Patient found to have poorly differentiated colon cancer with metastasis to the liver, she is admitted today for diverting colostomy, however she needs medical clearance before the procedure which was postponed until next week. 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 of diabetes, HTN, hypothyroidism Plan: * Patient was cleared by monitoring manager for the procedure today. Guest Relations Manager recommended transfusion prior to the surgery, FLORINA- was discontinued. * Patient was seen by monitoring manager who recommended telemetry monitoring for at least 24 hour post surgery, however a rapid response was called on Tuesday as the patient had mechanical fall and found to be tachycardic up to 120s she was transferred to telemetry floor for close monitoring. Next day in telemetry she was noticed to have sinus tachycardia with short SVT bursts, Guest Relations Manager ( ) recommended adding low-dose metoprolol twice daily. * She currently represents moderately elevated cardiac risk for the planned surgery given her CAD history with moderate aortic stenosis. She has a high-risk surgery with RCR I score of 6.6%, she is class III risk with METs<4 * Echocardiogram showed Normal left and right ventricular systolic function. Moderate Aortic stenosis. * Continue all home medications * Hold oral hypoglycemic. Continue insulin sliding scale * Accucheck TIDAC/HS * Daily CBC, BEP Problem List: 1. Benign essential hypertension 2. Leukocytosis 3. Rectal carcinoma 4. Metastases to the liver 5. Microcytic anemia Subjective Subjective: Patient seen and examined, lying on the bed, feeling weak. Vitals stable, no events overnight Review of Systems Constitutional: Reports: no symptoms. EENTM: Reports: no symptoms. Cardiovascular: Reports: no symptoms. Respiratory: Reports: no symptoms. Gastrointestinal: Reports: bloating. Genitourinary: Reports: no symptoms. Musculoskeletal: Reports: no symptoms. Skin: Reports: no symptoms. Neurological/Psychological: Reports: see HPI. Hematologic/Endocrine: Reports: no symptoms. Objective Last 24 Hrs of Vital Signs/I&O Vital Signs Date Time Temp Pulse Resp B/P B/P Pulse O2 O2 Flow FiO2 Mean Ox Delivery Rate 09/26 0800 Room Air 09/26 0641 98.3 89 20 138/60 95 Room Air 09/26 0000 Room Air 09/25 2323 96 142/70 09/25 2300 98.3 76 18 124/56 93 09/25 1713 93 116/58 09/25 1600 Room Air 09/25 1409 98.5 95 20 120/50 93 Room Air 09/25 0859 105 136/54 09/25 0858 105 136/54 Intake & Output 09/26 1600 09/26 0800 09/26 0000 Intake Total 200 400 Output Total 400 250 Balance -200 150 Intake, Blood 150 Product Intake, IV 50 Intake, Oral 0 400 Number 3 1 Bowel Movements Output, Urine 400 250 Patient 203 lb Weight Physical Exam General Appearance: well developed/nourished, alert, awake Head: atraumatic Neck: normal inspection Cardiovascular: regular rate/rhythm, normal peripheral pulses Respiratory: normal breath sounds, chest non-tender, no respiratory distress Abdomen: normal bowel sounds, soft, non-tender Extremities: normal inspection, normal capillary refill, +2 edema Neurologic/Psychiatric: no motor/sensory deficits, awake, alert, oriented x 3 Current Medications: Current Medications Sig/Rose Start time Last Medication Dose Route Stop Time Status Admin Acetaminophen 1,000 MG Q8P PRN 09/22 1145 AC 09/22 PO 1715 Atorvastatin Calcium 40 MG 1700 09/22 1700 AC 09/25 PO 1712 Dextrose/Sodium 1,000 ML Q13H 09/26 0745 AC 09/26 Chloride IV 0756 Diphenhydramine HCl 50 MG Q6P PRN 09/22 1145 AC IV Docusate Sodium 100 MG DAILY 09/22 1246 AC 09/25 PO 0859 Heparin Sodium 5,000 UNIT Q8 09/22 1400 DC 09/25 (Porcine) SC 09/26 0000 2041 Insulin Aspart 0 TIDAC 09/23 1700 DC 09/24 SC 1656 Insulin Human Regular 0 Q6 09/25 2359 AC SC Levothyroxine Sodium 0.025 MG DAILY AC 09/23 0700 AC 09/25 PO 0531 Lisinopril 20 MG DAILY 09/23 1000 DC 09/25 PO 0859 Magnesium Sulfate 1 GM Q2H 09/25 1915 DC 09/25 Dextrose/Water 100 ML IV 09/25 2314 2222 Metoprolol Tartrate 12.5 MG BID 09/25 1110 AC 09/25 PO 2323 Morphine Sulfate 2 MG Q2P PRN 09/22 1145 AC IV Ondansetron HCl 4 MG Q6 PRN 09/25 0511 AC 09/25 IV 0530 Oxycodone/ 1 TAB Q4P PRN 09/22 1145 AC 09/25 Acetaminophen PO 2130 Pantoprazole Sodium 40 MG DAILY 09/23 1000 AC 09/25 IV 0859 Zinc Oxide 1 BROWN BID 09/22 1514 09/25 [facility] 2041 Results Last 24 Hrs Lab/Tha Results: Laboratory Tests 09/26/17 0517: Anion Gap 7, Estimated GFR > 60, BUN/Creatinine Ratio 24.0, Glucose 80, Magnesium 2.1, CBC w Diff NO MAN DIFF REQ, RBC 3.93 L, MCV 74.8 L, MCH 23.8 L , MCHC 31.8 L, RDW 20.8 H, MPV 6.5 L, Gran % 75.2, Lymphocytes % 13.6 L, Monocytes % 10.8 H, Eosinophils % 0.3, Basophils % 0.1, Absolute Granulocytes 15.7 H, Absolute Lymphocytes 2.8, Absolute Monocytes 2.3 H, Absolute Eosinophils 0.1, Absolute Basophils 0 Dennis Hunter MD 09/26/17 1705: Attending MD Review Statement Attending Sign Off Attending Cosign Statement: I have: examined this patient, reviewed avalbl EMR data, personally reviewd images, discussd w/resident/PA/MILKING MACHINE TECHNICIAN, discussed mgmt plan w/nicolle, discussed mgmt plan w/pt, agreed w/resident/PA/MILKING MACHINE TECHNICIAN, amended to note. Other Findings: The patient was seen by me post operatively and is alert & oriented and appears comfortable. Agree with assessment and plan of care as above.
--- NOTE | 2017-09-26 11:16 | PN- Cardiology ---
Subjective Subjective: Resting comfortably. Still feels weak but no new complaints. Objective Vital Signs and I&Os Vital Signs Date Time Temp Pulse Resp B/P B/P Pulse O2 O2 Flow FiO2 Mean Ox Delivery Rate 09/26 0903 89 138/60 09/26 0800 Room Air 09/26 0641 98.3 89 20 138/60 95 Room Air 09/26 0000 Room Air 09/25 2323 96 142/70 09/25 2300 98.3 76 18 124/56 93 09/25 1713 93 116/58 09/25 1600 Room Air 09/25 1409 98.5 95 20 120/50 93 Room Air Intake & Output 09/26 1600 09/26 0809/26 0000 09/25 1600 09/25 0800 09/25 0000 Intake Total 619 042 6314 110 480 Output Total 400 250 800 Balance -200 150 240 110 480 Intake, Blood 150 Product Intake, IV 50 20 10 Intake, Oral 0 400 1020 100 480 Number 3 1 Bowel Movements Output, Urine 400 250 800 Patient 203 lb Weight Physical Exam: General: no apparent distress. Alert. Eyes: No obvious scleral icterus. HEENT: No jugular venous distention or abnormal jugular venous pulsations. Cardiovascular: Normal intensity S1/S2. 2 out of 6 systolic murmur Respiratory: Lungs clear to auscultation bilaterally. Abdomen: no guarding or rebound tenderness. Musculoskeletal: No clubbing or cyanosis noted; 1+ lower extremity edema Skin: Warm Neurologic: No gross focal deficits noted. Current Medications: Current Medications Sig/Rose Start time Last Medication Dose Route Stop Time Status Admin Acetaminophen 1,000 MG Q8P PRN 09/22 1145 AC 09/22 PO 1715 Atorvastatin Calcium 40 MG 1700 09/22 1700 AC 09/25 PO 1712 Dextrose/Sodium 1,000 ML Q13H 09/26 0745 AC 09/26 Chloride IV 0756 Diphenhydramine HCl 50 MG Q6P PRN 09/22 1145 AC IV Docusate Sodium 100 MG DAILY 09/22 1246 AC 09/25 PO 0859 Heparin Sodium 5,000 UNIT Q8 09/22 1400 DC 09/25 (Porcine) SC 09/26 0000 2041 Insulin Aspart 0 TIDAC 09/23 1700 DC 09/24 SC 1656 Insulin Human Regular 0 Q6 09/25 2359 AC SC Levothyroxine Sodium 0.025 MG DAILY AC 09/23 0700 AC 09/25 PO 0531 Lisinopril 20 MG DAILY 09/23 1000 DC 09/25 PO 0859 Magnesium Sulfate 1 GM Q2H 09/25 1915 DC 09/25 Dextrose/Water 100 ML IV 09/25 2314 2222 Metoprolol Tartrate 12.5 MG BID 09/25 1110 AC 09/25 PO 2323 Morphine Sulfate 2 MG Q2P PRN 09/22 1145 AC 09/26 IV 0901 Ondansetron HCl 4 MG Q6 PRN 09/25 0511 AC 09/25 IV 0530 Oxycodone/ 1 TAB Q4P PRN 09/22 1145 AC 09/25 Acetaminophen PO 2130 Pantoprazole Sodium 40 MG DAILY 09/23 1000 AC 09/25 IV 0859 Zinc Oxide 1 BROWN BID 09/22 1514 09/26 TOP 0904 Results Last 48 Hrs of Labs/Mics: Laboratory Tests 09/26/17 0517: Anion Gap 7, Estimated GFR > 60, BUN/Creatinine Ratio 24.0, Glucose 80, Magnesium 2.1, CBC w Diff NO MAN DIFF REQ, RBC 3.93 L, MCV 74.8 L, MCH 23.8 L , MCHC 31.8 L, RDW 20.8 H, MPV 6.5 L, Gran % 75.2, Lymphocytes % 13.6 L, Monocytes % 10.8 H, Eosinophils % 0.3, Basophils % 0.1, Absolute Granulocytes 15.7 H, Absolute Lymphocytes 2.8, Absolute Monocytes 2.3 H, Absolute Eosinophils 0.1, Absolute Basophils 0 09/25/17 0605: Anion Gap 9, Estimated GFR > 60, BUN/Creatinine Ratio 23.3, Magnesium 1.6, CBC w Diff NO MAN DIFF REQ, RBC 3.45 L, MCV 73.0 L, MCH 23.0 L, MCHC 31.4 L, RDW 21.8 H, MPV 7.0 L, Gran % 82.3 H, Lymphocytes % 8.6 L, Monocytes % 9.0, Eosinophils % 0.1, Basophils % 0, Absolute Granulocytes 18.5 H, Absolute Lymphocytes 1.9, Absolute Monocytes 2.0 H, Absolute Eosinophils 0, Absolute Basophils 0 Recent Imaging Studies: Telemetry tracings were personally reviewed and shows sinus rhythm with short SVT burst Assessment/Plan Assessment/Plan 1. 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 History of coronary artery disease with remote PCI x 2 (last 2010) 3. Anemia/weakness 4. History of hypertension 5. History of diabetes/hypothyroidism 6. Remote smoking history 7. Moderate aortic stenosis by echocardiogram 8. Short SVT burst on telemetry Remains stable. I discussed with the surgical team yesterday evening and we agreed on giving pre-op transfusion given the progressive anemia. Average heart rate is normal on the low-dose beta-richi and we discontinued the FLORINA inhibitor to decrease the risk of perioperative hypotension. Miguelito Langley MD [facility] Continue telemetry? Yes
--- NOTE | 2017-09-26 14:42 | Operative Report ---
Operative/Inv Procedure Report Surgery Date: 09/26/17 Name of Procedure: Laparoscopic diverting loop transverse colostomy Pre-Operative Diagnosis: Stage IV rectal cancer with impending large bowel obstruction Post-Operative Diagnosis: Same Estimated Blood Loss: scant Surgeon/Social Services Designee: Destin Montoya Jr., DO Anesthesia: general endotracheal tube, block Monitors: Per routine Implants: None Drains: Stoma bridge Specimens: None Complications: None Condition: Stable Operative Indication: This is a 76-year-old female with a recently diagnosed stage IV rectal cancer. She has impending obstruction from her rectal mass. She is having a diverting loop colostomy forms today to prevent progression to full-blown obstruction Operative/Procedure Note Note: The patient was taken into the operating room. She was given IV antibiotics. She's placed in the supine position on the operating room table. She had induction of general anesthesia with placement of endotracheal tube and Blake catheter. Her right arm was tucked and she had bilateral tap blocks performed. Next the abdomen was prepped and draped in usual fashion. We gained access the abdominal cavity through a Dawn port. The 12 mm Dawn port was placed in the supraumbilical position. Next the abdomen was insufflated to 15 mmHg. At this point , 2 additional 5 mm ports were placed. One in the left upper quadrant one in the right lower quadrant. These were both placed under direct visualization of the laparoscope. At this point laparoscopic expiration of the abdominal cavity was carried out. Patient had a moderate amount of straw-colored ascites. Patient had visible bulky metastatic disease to the liver. The colon was very dilated and thick-walled consistent with chronic partial obstruction. I inspected the length of the transverse and left colon for a proper length of bowel to used for the stoma. It appeared to me the transverse colon would make the best stoma. I divided the gastrocolic ligament starting in the mid transverse colon and working antegrade till I reached the splenic flexure. This gave me access to the posterior sac. Once the omentum was mobilized off the colon shows the site of colostomy. A window was made in the mesentery along the inferior edge of the stoma. I was able to pull a 4 inch umbilical tape through this mesenteric window. Next a 5 mm port was placed in the left upper quadrant at the proposed site of the stoma. The 2 ends of the umbilical port were grasped with a locking grasper. A salt river of skin and subcutaneous tissue was excised around the port down to the fascia of the rectus abdominis. The anterior sheath was divided transversely. Some of the rectus muscle was divided transversely. And finally the posterior sheath was divided transversely. At this point I could pull the loop of transverse colon up easily through the fascial defect using the previously placed umbilical tape. The umbilical tape was exchanged for red rubber catheter. We made one last laparoscopic exploration of the abdominal cavity there was no bleeding. The 5 mm ports were removed. The fascia at the umbilical port was closed with a [id number] 0 Vicryl. The skin of all 3 port incision was closed with subcuticular 4 Monocryl. Dermabond skin glue was used to seal the epidermis of all 3 of the smaller incisions. Once the Dermabond glue was dry a sterile towel was placed over these incisions and we prepared to mature the stoma. I made a colotomy along the length of the colon on the antimesenteric border. The edges of the stoma were Brooked using interrupted 3-0 Vicryl suture. Thus creating a double barrel loop colostomy. The red rubber catheter was then turned into a stoma bridge. 0 silk was used to secure the catheter on either side of the stoma the skin. The tails of the catheter were sewn together with 2-0 nylon. A stomal collection device was then cut to fit and placed over the colostomy. At this point the procedure was concluded. The patient tolerated the procedure well was taken to recovery area in good condition. At the end of this operational needle sponges and measurements were accounted for. Findings: Obvious metastatic disease, liver Likely malignant ascites Distal transverse colon used as a loop colostomy Discharge Disposition: PACU CC: Sheyla ALBARADO,Perico Harris; Wilner ALBARADO,Justin Tran; Lora ALBARADO,Shin
[2017-09-26 15:24] VITALS: BP 134/72
--- NOTE | 2017-09-26 16:42 | PN- Student ---
Ruperto Willis 09/26/17 1637: Subjective Subjective: doing well s/p transverse loop colonostomy. denies pain, n/v. no oral intake and hasnt been oob since procedure. denies cp, sob, fever, chills. Objective Objective: vitals: (since pacu) temp: 99.1 degrees F pulse: 85 bpm resp: 18 breaths/min bp: 134/72 O2: 89% 1L NC I/O: 255/100 since pacu General: resting comfortably in bed, NAD, abdomen: slight distention, incisions C/D/I, ostomy appliance in place, no gas or BM output. stoma pink and viable, socorro in place. normoactive bowel sounds in all quadrants. incisions tender, moderate epigastric and periumbilical tenderness. cardiac: regular rhythm, normal rate, no MRG pulm: ctab, no accessory muscle usage lower extremities: no edema, compression devices in place, gross motor and sensory function intact in B/L LE. 2+ DP pulses B/L Results Results: Assessment/Plan Assessment: 76 y/o female, pmh metastatic rectal ca, dm, cad, htn, hld, hypothyroidism, POD #0 s/p lap diverting transverse loop colostomy. pt recovering well, pain well controlled on current regiment, appropriate incisional tenderness, awaiting full return of bowel function, continues to require suplemental O2 post-op. Plan: continue current pain management diet: clears activity: OOB as tolerated ppx: pneumatic compression devices, SQH. prilosec for GI ppx IV fluids until adequate PO intake and urine output fingersticks as ordered, continue insulin sliding scale continue Abx for 23 hour as post-op ppx titrate O2 as needed d/c edwards tomorrow await cardiology recs on use of FLORINA-I and BB Lisa Recio 09/26/17 1713: Assessment/Plan Plan: Pt seen with student. Agree w above
[2017-09-26 22:16] VITALS: BP 136/64
[2017-09-27 06:51] VITALS: BP 142/72
--- NOTE | 2017-09-27 08:11 | PN- Medicine Consult ---
CrystalSidney roque 09/27/17 0810: Assessment/PlanMedical Consult Assessment/Plan Assessment: The patient is a 76-year-old woman with a past medical history of obesity, diabetes, HTN, hypothyroidism, CAD post cardiac stent x 2- 2006, hx renal stones , former 40 pk yr cigarette smoker quit in 1977, positive family history of colon cancer, winth no prior EGD or colonoscopy, admitted to [facility] on 09/14/17 with complaints of 1 year of unintentional 30 pound weight loss, one month of weakness, progressive shortness of breath, loose stools, and occasionally pink tinged/scant rectal bleeding she was found to have enlarged liver with multiple lesions consistent with metastatic disease and numerous pulmonary nodules on the CAT scan abdomen/pelvis. Patient found to have poorly differentiated colon cancer with metastasis to the liver, she is admitted today for diverting colostomy, however she needs medical clearance before the procedure which was postponed until next week. Assessment: #Postop day #1 status post diverting loop colostomy secondary to rectal cancer #Metastasis to the lung and liver #Leukocytosis #CAD post cardiac stent x - 2010 #Hx of anemia/hypothyroidism #Moderate aortic stenosis on echo #Short SVT on telemetry #Hx. of diabetes, HTN, hypothyroidism Plan: * Pending evaluation of hematology/oncology * Follow-up cardiology recommendation in terms of diuresis * Hold oral hypoglycemic. Continue insulin sliding scale. Resume home medication including hypoglycemic agent upon discharge * Accucheck TIDAC/HS Problem List: 1. Metastases to the liver 2. Rectal carcinoma 3. Multiple lesions of metastatic malignancy Subjective Subjective: Patient seen and examined, she was sitting on the recliner with no acute distress. Colostomy is not functioning yet, she denies any chest pain, palpitation, shortness of breath, no abdominal pain. Vitals stable, no events overnight She is post op day 2 Review of Systems Constitutional: Reports: no symptoms. EENTM: Reports: no symptoms. Cardiovascular: Reports: no symptoms. Respiratory: Reports: no symptoms. Gastrointestinal: Reports: no symptoms. Genitourinary: Reports: no symptoms. Musculoskeletal: Reports: no symptoms. Skin: Reports: no symptoms. Neurological/Psychological: Reports: no symptoms. Hematologic/Endocrine: Reports: no symptoms. Immunologic/Allergic: Reports: no symptoms. Objective Last 24 Hrs of Vital Signs/I&O Vital Signs Date Time Temp Pulse Resp B/P B/P Pulse O2 O2 Flow FiO2 Mean Ox Delivery Rate 09/27 0902 68 128/84 09/27 0900 68 128/84 09/27 0800 Nasal 1.0L Cannula 09/27 0651 97.4 69 18 142/72 98 Nasal 1.5L Cannula 09/27 0000 Nasal 1.0L Cannula 09/26 2216 98.7 85 16 136/64 97 09/26 2140 88 136/64 09/26 1600 89 Nasal 1.0L Cannula 09/26 1524 99.1 85 18 134/72 91 Nasal 1.0L Cannula Intake & Output 09/27 1600 09/27 0800 09/27 0000 Intake Total 920 1340 Output Total 300 500 Balance 620 840 Intake, IV 800 860 Intake, Oral 120 480 Output, Urine 300 500 Patient 214 lb Weight Physical Exam General Appearance: well developed/nourished, no apparent distress, alert, awake , comfortable Head: atraumatic, normal appearance Cardiovascular: regular rate/rhythm, normal peripheral pulses Respiratory: normal breath sounds, chest non-tender, no respiratory distress Extremities: +1 upper extremities edema +2 lower extremities edema Neurologic/Psychiatric: no motor/sensory deficits, awake, alert, oriented x 3 Current Medications: Current Medications Sig/Rose Start time Last Medication Dose Route Stop Time Status Admin Acetaminophen 650 MG Q4P PRN 09/26 1400 AC PO Acetaminophen 1,000 MG Q8P PRN 09/22 1145 DC 09/22 PO 1715 Atorvastatin Calcium 40 MG 1700 09/22 1700 AC 09/26 PO 1816 Cefazolin Sodium 2 GM IQ8 09/26 1600 DC 09/26 N/A 1 UNIT IV 09/27 0029 2359 Dextrose/Sodium 1,000 ML Q13H 09/26 0745 AC 09/27 Chloride IV 1140 Diphenhydramine HCl 50 MG Q6P PRN 09/22 1145 DC IV Docusate Sodium 100 MG DAILY 09/22 1246 DC 09/25 PO 0859 Heparin Sodium 5,000 UNIT Q8 09/26 2200 AC 09/27 (Porcine) SC 1242 Insulin Aspart 0 AT BEDTIME 09/26 2200 AC SC Insulin Aspart 0 TIDAC 09/26 1700 AC 09/27 SC 1241 Insulin Human Regular 0 Q6 09/25 2359 DC SC Levothyroxine Sodium 0.025 MG DAILY AC 09/23 0700 AC 09/27 PO 0545 Metoprolol Tartrate 12.5 MG BID 09/25 1110 AC 09/27 PO 0902 Metronidazole 500 MG IQ8 09/26 1600 DC 09/27 N/A 1 UNIT IV 09/27 0059 0032 Morphine Sulfate 2 MG Q2P PRN 09/22 1145 AC 09/26 IV 0901 Omeprazole 20 MG DAILY AC 09/27 0700 AC 09/27 PO 0545 Ondansetron HCl 4 MG Q6 PRN 09/25 0511 AC 09/25 IV 0530 Oxycodone/ 2 TAB Q4P PRN 09/26 1400 AC Acetaminophen PO Oxycodone/ 1 TAB Q4P PRN 09/22 1145 AC 09/27 Acetaminophen PO 0135 Pantoprazole Sodium 40 MG DAILY 09/23 1000 DC 09/25 IV 0859 Zinc Oxide 1 BROWN BID 09/22 1514 AC 09/27 TOP 0903 Results Last 24 Hrs Lab/Tha Results: Laboratory Tests 09/27/17 0615: Anion Gap 9, Estimated GFR > 60, BUN/Creatinine Ratio 24.0, Phosphorus 3.3, Magnesium 1.9, CBC w Diff NO MAN DIFF REQ, RBC 3.78 L, MCV 75.7 L, MCH 23.5 L , MCHC 31.1 L, RDW 21.1 H, MPV 7.3 L, Gran % 87.9 H, Lymphocytes % 7.2 L, Monocytes % 4.8, Eosinophils % 0, Basophils % 0.1, Absolute Granulocytes 12.5 H , Absolute Lymphocytes 1.0 L, Absolute Monocytes 0.7 H, Absolute Eosinophils 0 , Absolute Basophils 0 Dennis Hunter MD 09/27/17 1643: Attending MD Review Statement Attending Sign Off Attending Cosign Statement: I have: examined this patient, reviewed aval EMR data, personally reviewd images, discussd w/resident/PA/KNUCKLE BENDER, discussed mgmt plan w/nicolle, discussed mgmt plan w/pt, agreed w/resident/PA/KNUCKLE BENDER, amended to note. Other Findings: The patient was seen and discussed. Agree with plan of care. C/O pain in hemorrhoids and will Rx with Anusol HC cream bid.
[2017-09-27 08:22] LABS: ABSOLUTE BASOPHIL COUNT 0 /CUMM (0.0-0.2); ABSOLUTE EOSINOPHIL COUNT 0 /CUMM (0.0-0.7); ABSOLUTE GRANULOCYTE CT 12.5 /CUMM (1.4-6.5); ABSOLUTE MONOCYTE COUNT 0.7 /CUMM (0.10-0.60); BASOPHIL % 0.1 % (0.0-2.0); EOSINOPHIL % 0 % (0-5); HEMATOCRIT 28.6 % (37-47); MEAN CORPUSCULAR HGB 23.5 PG (27.0-31.0); MEAN CORPUSCULAR HGB CONC 31.1 G/DL (33.0-37.0); MEAN CORPUSCULAR VOLUME 75.7 FL (81.0-99.0); MEAN PLATELET VOLUME 7.3 FL (7.4-10.4); PLATELET COUNT 178 /CUMM (130-400); RBC DISTRIBUTION WIDTH 21.1 % (11.5-14.5); RED BLOOD CELL CT 3.78 /CUMM (4.20-5.40); WHITE BLOOD CELL COUNT 14.2 /CUMM (4.8-10.8)
--- NOTE | 2017-09-27 08:43 | PN- General Surgery ---
Tyler Carrington 09/27/17 0835: Subjective Subjective: No events overnight, no ostomy function yet. tolerating clears. pain controlled Objective Vital Signs and I&Os Vital Signs Date Time Temp Pulse Resp B/P B/P Pulse O2 O2 Flow FiO2 Mean Ox Delivery Rate 09/27 0651 97.4 69 18 142/72 98 Nasal 1.5L Cannula 09/27 0000 Nasal 1.0L Cannula 09/26 2216 98.7 85 16 136/64 97 09/26 2140 88 136/64 09/26 1600 89 Nasal 1.0L Cannula 09/26 1524 99.1 85 18 134/72 91 Nasal 1.0L Cannula 09/26 0903 89 138/60 Intake & Output 09/27 1600 09/27 0800 09/27 0000 09/26 1600 09/26 0800 09/26 0000 Intake Total 920 1340 255.2 200 400 Output Total 300 500 100 400 250 Balance 620 840 155.2 -200 150 Intake, Blood 150 Product Intake, IV 800 860 255.2 50 Intake, Oral 120 480 0 400 Number 3 1 Bowel Movements Output, Urine 300 500 100 400 250 Patient 214 lb 203 lb Weight Physical Exam: Well-developed well-nourished no apparent distress. HEENT: Atraumatic, extraocular motion intact Neck: Supple, no lymphadenopathy Respiratory: No respiratory distress Abdomen: Moderate distention, mild tympani, no bowel sounds, generalized abdominal tenderness. Ostomy site slightly pale appearing, no output, minimal thin serosanguineous discharge in the back. Dressing clean dry and intact Extremities: No edema, no calf pain Neuro: Alert and oriented x3 Psych: Mood affect normal, normal memory normal judgment. Skin: Mildly pale appearing, skin is Warm and dry, no rash on exposed skin Results Last 48 Hours of Labs: Laboratory Tests 09/27 09/26 0615 0517 Chemistry Sodium (137 - 145 mmol/L) 136 L 132 L Potassium (3.5 - 5.1 mmol/L) 3.9 4.0 Chloride (98 - 107 mmol/L) 100 96 L Carbon Dioxide (22 - 30 mmol/L) 27 29 Anion Gap (5 - 16) 9 7 BUN (7 - 17 mg/dL) 12 12 Creatinine (0.5 - 1.0 mg/dL) 0.5 0.5 Estimated GFR (>60 ml/min) > 60 > 60 BUN/Creatinine Ratio (7 - 25 %) 24.0 24.0 Glucose (65 - 99 mg/dL) 80 Phosphorus (2.5 - 4.5 mg/dL) 3.3 Magnesium (1.6 - 2.3 mg/dL) 1.9 2.1 Hematology CBC w Diff Pending NO MAN DIFF REQ WBC (4.8 - 10.8 /CUMM) Pending 20.9 H RBC (4.20 - 5.40 /CUMM) Pending 3.93 L Hgb (12.0 - 16.0 G/DL) Pending 9.3 L Hct (37 - 47 %) Pending 29.4 L MCV (81.0 - 99.0 FL) Pending 74.8 L MCH (27.0 - 31.0 PG) Pending 23.8 L MCHC (33.0 - 37.0 G/DL) Pending 31.8 L RDW (11.5 - 14.5 %) Pending 20.8 H Plt Count (130 - 400 /CUMM) Pending 353 MPV (7.4 - 10.4 FL) Pending 6.5 L Gran % (42.2 - 75.2 %) 75.2 Lymphocytes % (20.5 - 51.1 %) 13.6 L Monocytes % (1.7 - 9.3 %) 10.8 H Eosinophils % (0 - 5 %) 0.3 Basophils % (0.0 - 2.0 %) 0.1 Absolute Granulocytes (1.4 - 6.5 /CUMM) 15.7 H Absolute Lymphocytes (1.2 - 3.4 /CUMM) 2.8 Absolute Monocytes (0.10 - 0.60 /CUMM) 2.3 H Absolute Eosinophils (0.0 - 0.7 /CUMM) 0.1 Absolute Basophils (0.0 - 0.2 /CUMM) 0 Assessment/Plan Assessment/Plan Postop day #1 status post diverting loop colostomy secondary to rectal cancer Continue clears IV fluids Monitor colostomy site for bowel function Dressing change postop day 2 Appreciate cardiology and medical input, continue metoprolol for SVT and blood pressure control OOB DC Blake i/o's Heparin sq for dvt ppx follow labs, transfuse if symptomatic Core Measures Venous Thromboembolism VTE Risk Factors No risk factors No Mechanical VTE Prophylaxis d/t N/A MechProphylax Ordered No VTE Pharm Prophylaxis d/t NA PharmProphylax ordered Destin Montoya DO 09/27/17 0844: Attending MD Review Statement Attending Statement Attending MD Statement: examined this patient, discuss w/resident/PA/EXECUTIVE ADVISOR, agreed w/resident/PA/EXECUTIVE ADVISOR Attending Assessment/Plan: Stoma edematous but pink and viable Stay on clear liquids until some evidence of stomal function Patient discussed at tumor board today Radiation oncology consult pending
[2017-09-27 09:00] VITALS: BP 128/84
--- NOTE | 2017-09-27 09:07 | Surgical Discharge Summary ---
Visit Information Visit Dates Admission Date: 09/22/17 Discharge Date: 09/30/17 History of Present Illness Chief Complaint: Impending bowel obstruction secondary to colon cancer Medical History Blood Transfusion Hx: No EENT: NONE Cardiovascular: CAD (s/p stents), hypertension, hyperlipidemia, HEART MURMUR Respiratory: NONE Gastrointestinal: COLORECTAL CANCER Hepatic: CHRIS TO LIVE/LUNGS Renal: nephrolithiasis Musculoskeletal: NONE Psychiatric: NONE Endocrine: diabetes, hypothyroidism, obesity Blood Disorders: NONE Cancer(s): colon/rectal cancer NURSERYMAN ASSISTANT/Reproductive: NONE History of MRSA: No History of VRE: No History of CDIFF: No Isolation History: Standard Surgical History Pertinent Surgical History: non-contributory Family History Relations & Conditions If Any: FATHER FH: heart disease MOTHER FH: cancer of digestive organ BROTHER FH: heart attack SISTER FHx: lung cancer BROTHER Psychosocial History Who Do You Live With? Patient/Self Services at Home: None What is Your Primary Language? Tuvaluan ETOH Use: denies use Review of Systems: see h&p Hospital Course Course Attending Physician: Destin Montoya Jr., DO Primary Care Physician: Yamilet Mobley APRN Hospital Course: Patient was admitted secondary to impending bowel obstruction with a history of colon cancer. She received preop clearance, 2 units of preoperative packed red blood cells due to anemia and subsequently and underwent Laparoscopic diverting loop transverse colostomy due to her Stage IV rectal cancer with impending large bowel obstruction. Postoperatively she had an episode of SVT and cardiology evaluated her, switched her lisinopril to metoprolol. She was placed on clears, IV fluids were given, bowel function was monitored and her diet was slowly advanced to tolerance. She is placed on heparin for DVT prophylaxis. In addition, she was evaluated by Oncology, and underwent a CT simulation on the day of discharge. Her labs were followed, vital signs are stable, she was discharged to snf facility in a stable condition Complications: Preoperative chronic anemia requiring 2 units of packed red blood cells. Postoperative SVT Allergies: Coded Allergies: shellfish derived (Intermediate, G.I. DISTRESS FROM SCALLOPS 09/14/17) Disposition Summary Disposition Principal Diagnosis: Laparoscopic diverting loop transverse colostomy Pre-Operative Diagnosis: Stage IV rectal cancer with impending large bowel obstruction Additional Diagnosis: Chronic anemia Postoperative SVT Discharge Disposition: SNF Discharge Instructions General Discharge Information Code Status: Full Code Patient's Diet: low residue diet Patient's Activity: Avoid lifting over 10 pounds Colostomy care as directed Follow-Up Instructions/Appts: Follow-up with Destin Montoya 2 weeks for stoma bridge removal and follow up check Medications at Discharge Discharge Medications: Continue taking these medications: Levothyroxine Sodium (Levothyroxine Sodium) 25 MCG TABLET 1 Tablet ORAL DAILY Qty = 90 Comments: Last Taken: 09/20/17 Time: 8:20AM Quinapril HCl (Quinapril HCl) 20 MG TABLET 1 Tablet ORAL DAILY Qty = 90 Comments: LISINOPRIL ADMINISTERED Last Taken: 09/20/17 Time: 8:30AM Atorvastatin Calcium (Atorvastatin Calcium) 40 MG TABLET 1 Tablet ORAL DAILY Qty = 90 Comments: DID NOT ADMINISTER IN HOSPITAL Sitagliptin Phos/Metformin HCl (Janumet 50-1,000 MG Tablet) 50 MG-1,000 MG TABLET 1 Tablet ORAL TWICE DAILY Qty = 180 Comments: DID NOT ADMINISTER Glimepiride (Glimepiride) 4 MG TABLET 1 Tablet ORAL DAILY Qty = 180 Comments: DID NOT ADMINISTER Empagliflozin (Jardiance) 10 MG TABLET 1 Tablet ORAL EVERY 48 HOURS (Every 2 days) Qty = 90 Comments: DID NOT ADMINISTER Start taking the following new medications: Metoprolol Tartrate (Metoprolol Tartrate) 25 MG TABLET 1 Tablet ORAL TWICE DAILY Qty = 60 No Refills Furosemide (Lasix) 20 MG TABLET 1 Tablet ORAL DAILY Qty = 2 No Refills Oxycodone HCl/Acetaminophen (Percocet 5-325 MG Tablet) 5 MG-325 MG TABLET 1-2 Tablet ORAL EVERY 4-6 HOURS as needed for PAIN Qty = 30 No Refills Copies To: Yamilet Mobley APRN
--- NOTE | 2017-09-27 09:09 | Patient Discharge Instructions ---
Discharge Instructions General Discharge Information You were seen/treated for: Laparoscopic diverting loop transverse colostomy Pre-Operative Diagnosis: Stage IV rectal cancer with impending large bowel obstruction You had these procedures: See above Watch for these problems: Worsening abdominal pain, nausea, vomiting, fever, flulike illness, pain at the ostomy site or bleeding Do not soak the wound: Yes No bath, but you may shower: Yes Other wound care: Ostomy site as directed Band-Aids over the incision sites, change when went Special Instructions: Follow up with Dr. Montoya in 1-2 weeks Follow up with oncologist, Dr. Paulino to discuss systemic therapy option. Continue with CT simulation treatments, which Oncology will arrange Diet Continue normal diet: No Recommended Diet: Low Residue Activity Full Activity/No Limits: No Activity Self Limited: Yes Pounds, do NOT lift more than: 10 Acute Coronary Syndrome Inclusion Criteria At DC or during hospital stay patient has or had the following: ACS DIAGNOSIS No Discharge Core Measures Meds if any: Prescribed or Continued at Discharge Meds if any: NOT Prescribed or Continued at Discharge Congestive Heart Failure Inclusion Criteria At DC or during hospital stay patient has or had the following: CHF DIAGNOSIS No Discharge Core Measures Meds if any: Prescribed or Continued at Discharge Meds if any: NOT Prescribed or Continued at Discharge Cerebrovascular accident Inclusion Criteria At DC or during hospital stay patient has or had the following: CVA/TIA Diagnosis No Discharge Core Measures Meds if any: Prescribed or Continued at Discharge Meds if any: NOT Prescribed or Continued at Discharge Venous thromboembolism Inclusion Criteria VTE Diagnosis No VTE Type NONE VTE Confirmed by (Test) NONE Discharge Core Measures - Per Current guidelines, there needs to be overlap - treatment for the first 5 days of Warfarin therapy. - If discharged on Warfarin prior to 5 days of - overlap therapy, the patient will need to be - assessed for post discharge needs including - *Post discharge parental anticoagulation - *Warfarin and/or parental anticoagulation education - *Follow up date to check INR post discharge At least 5 days overlap therapy as Inpatient No Meds if any: Prescribed or Continued at Discharge Note: Overlap Therapy is Warfarin and Anticoagulant Meds if any: NOT Prescribed or Continued at Discharge
[2017-09-27 09:17] LABS: GRANULOCYTE % 87.9 % (42.2-75.2)
--- NOTE | 2017-09-27 10:16 | PN- Cardiology ---
Subjective Subjective: The patient is awake, alert An 11 pound weight increase has been documented; however, there is no clinical correlation for this. Intake and output reviewed demonstrates an overall approximate 2 L net positive over the past 4 days The events of the last 24 hours as well as telemetry were reviewed. Review of Systems: The review of systems is negative for chest pains, palpitations nor lightheadedness. The remainder of the 14 point review of systems is noncontributory with the exception of above. Objective Vital Signs and I&Os Vital Signs Date Time Temp Pulse Resp B/P B/P Pulse O2 O2 Flow FiO2 Mean Ox Delivery Rate 09/27 901 68 128/84 09/27 0900 68 128/84 09/27 0800 Nasal 1.0L Cannula 09/27 0651 97.4 69 18 142/72 98 Nasal 1.5L Cannula 09/27 0000 Nasal 1.0L Cannula 09/26 2216 98.7 85 16 136/64 97 09/26 2140 88 136/64 09/26 1600 89 Nasal 1.0L Cannula 09/26 1524 99.1 85 18 134/72 91 Nasal 1.0L Cannula Intake & Output 09/27 1600 09/27 0800 / 0000 09/26 1600 09/26 0800 09/26 0000 Intake Total 920 1340 255.2 200 400 Output Total 300 500 100 400 250 Balance 620 840 155.2 -200 150 Intake, Blood 150 Product Intake, IV 800 860 255.2 50 Intake, Oral 120 480 0 400 Number 3 1 Bowel Movements Output, Urine 300 500 100 400 250 Patient 214 lb 203 lb Weight Physical Exam: General: Nontoxic, no apparent distress. HEENT: Sclera and conjunctiva within normal limits, without xanthelasmas. Neck: Carotids 2+ without bruits. Respiratory: Clear to auscultation, air movement is good, without accessory respiratory muscle use. Heart: Regular rate and rhythm, without murmurs, without JVD. Abdomen: Soft, nontender, no masses, normoactive bowel sounds. Extremities: Without clubbing, cyanosis, approximately 2 mm of pitting edema in both lower extremities to the knees. Neuro: Nonfocal exam, strength, 5 out of 5 Skin: Within normal limits without lesions. Psych: Mood and affect: Normal Current Medications: Current Medications Sig/Rose Start time Last Medication Dose Route Stop Time Status Admin Acetaminophen 650 MG Q4P PRN 09/26 1400 AC PO Acetaminophen 1,000 MG .STK-MED ONE 09/26 1051 DC IV 09/26 1052 Acetaminophen 1,000 MG Q8P PRN 09/22 1145 DC 09/22 PO 1715 Atorvastatin Calcium 40 MG 1700 09/22 1700 AC 04 PO 1816 Cefazolin Sodium 2 GM IQ8 09/26 1600 DC 09/26 N/A 1 UNIT IV 09/27 0029 2359 Dexamethasone 8 MG .STK-MED ONE 09/26 1051 DC IM 09/26 1052 Dextrose/Sodium 1,000 ML Q13H 09/26 0745 AC 09/27 Chloride IV 0001 Diphenhydramine HCl 50 MG Q6P PRN 09/22 1145 DC IV Docusate Sodium 100 MG DAILY 09/22 1246 DC 09/25 PO 0859 Fentanyl Citrate 300 MCG .STK-MED ONE 09/26 1050 DC IM 09/26 1051 Heparin Sodium 5,000 UNIT Q8 09/26 2200 AC 09/27 (Porcine) SC 0545 Insulin Aspart 0 AT BEDTIME 09/26 2200 AC SC Insulin Aspart 0 TIDAC 09/26 1700 AC 09/27 SC 0901 Insulin Human Regular 0 Q6 09/25 2359 DC SC Levothyroxine Sodium 0.025 MG DAILY AC 09/23 0700 AC 09/27 PO 0545 Metoprolol Tartrate 12.5 MG BID 09/25 1110 AC 09/27 PO 0902 Metronidazole 500 MG IQ8 09/26 1600 DC 09/27 N/A 1 UNIT IV 09/27 0059 0032 Midazolam HCl 2 MG .STK-MED ONE 09/26 1050 DC IM 09/26 1051 Morphine Sulfate 8 MG .STK-MED ONE 09/26 1049 DC IM 09/26 1050 Morphine Sulfate 2 MG Q2P PRN 09/22 1145 AC 09/26 IV 0901 Omeprazole 20 MG DAILY AC 09/27 0700 AC 09/27 PO 0545 Ondansetron HCl 4 MG .STK-MED ONE 09/26 1051 DC IM 09/26 1052 Ondansetron HCl 4 MG Q6 PRN 09/25 0511 AC 09/25 IV 0530 Oxycodone/ 2 TAB Q4P PRN 09/26 1400 AC Acetaminophen PO Oxycodone/ 1 TAB Q4P PRN 09/22 1145 AC 09/27 Acetaminophen PO 0135 Pantoprazole Sodium 40 MG DAILY 09/23 1000 DC 09/25 IV 0859 Zinc Oxide 1 BROWN BID 09/22 1514 09/27 TOP 0903 Results Last 48 Hrs of Labs/Mics: Laboratory Tests 09/27/17 0615: Anion Gap 9, Estimated GFR > 60, BUN/Creatinine Ratio 24.0, Phosphorus 3.3, Magnesium 1.9, CBC w Diff NO MAN DIFF REQ, RBC 3.78 L, MCV 75.7 L, MCH 23.5 L , MCHC 31.1 L, RDW 21.1 H, MPV 7.3 L, Gran % 87.9 H, Lymphocytes % 7.2 L, Monocytes % 4.8, Eosinophils % 0, Basophils % 0.1, Absolute Granulocytes 12.5 H , Absolute Lymphocytes 1.0 L, Absolute Monocytes 0.7 H, Absolute Eosinophils 0 , Absolute Basophils 0 09/26/17 0517: Anion Gap 7, Estimated GFR > 60, BUN/Creatinine Ratio 24.0, Glucose 80, Magnesium 2.1, CBC w Diff NO MAN DIFF REQ, RBC 3.93 L, MCV 74.8 L, MCH 23.8 L , MCHC 31.8 L, RDW 20.8 H, MPV 6.5 L, Gran % 75.2, Lymphocytes % 13.6 L, Monocytes % 10.8 H, Eosinophils % 0.3, Basophils % 0.1, Absolute Granulocytes 15.7 H, Absolute Lymphocytes 2.8, Absolute Monocytes 2.3 H, Absolute Eosinophils 0.1, Absolute Basophils 0 Assessment/Plan Assessment/Plan 1. 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 History of coronary artery disease with remote PCI x 2 (last 2010) 3. Anemia/weakness 4. History of hypertension 5. History of diabetes/hypothyroidism 6. Remote smoking history 7. Moderate aortic stenosis by echocardiogram 8. Short SVT burst on telemetry The patient is overall doing well from a cardiac/hemodynamic standpoint; however , has noted positive fluid balance on monitoring. There is no evidence for acute congestive heart failure; however, given the IV fluid and lower extremity edema, we may consider administering a one-time dose of diuretic to maintain a euvolemic status. Following discharge, daily weights should be tracked, and follow-up established in our office. Continue telemetry? Yes
[2017-09-27 14:15] VITALS: BP 136/60
[2017-09-27 23:00] VITALS: BP 138/80
[2017-09-28 06:00] VITALS: BP 134/72
--- NOTE | 2017-09-28 07:58 | PN- General Surgery ---
Subjective Subjective: Tolerating clears. She is unsure about whether her colostomy bag has been filling with air. Nursing denies flatus or stool in the bag. She denies nausea. Peripheral IV access lost earlier this morning, with several unsuccessful attempts at re-establishing a peripheral IV following this. She reports out of bed to bathroom and chair without dizziness. No shortness of breath. No chest pains. Voiding well. She is eager to try food once allowed to do so. Objective Vital Signs and I&Os Vital Signs Date Time Temp Pulse Resp B/P B/P Pulse O2 O2 Flow FiO2 Mean Ox Delivery Rate 09/28 599 97.3 71 18 134/72 96 09/28 0000 Nasal 1.0L Cannula 09/27 2300 97.5 65 18 138/80 98 Nasal 1.0L Cannula 09/27 1631 Room Air 1.0L 09/27 1415 97.4 68 18 136/60 97 Room Air 09/27 0902 68 128/84 09/27 0900 68 128/84 09/27 0800 Nasal 1.0L Cannula Intake & Output 09/28 0800 09/28 0000 09/27 1600 09/27 0800 09/27 0000 09/26 1600 Intake Total 520 1150 0288 039 9960 255.2 Output Total 600 350 500 300 500 100 Balance -80 800 914 620 840 155.2 Intake, IV 400 550 814 800 860 255.2 Intake, Oral 120 600 600 120 480 Output, Urine 600 350 500 300 500 100 Patient 210 lb 214 lb Weight Weight Bed scale Measurement Method Physical Exam: General - alert & oriented x 3. comfortable. no acute distress. Lungs - clear bilaterally Cardiac - s1s2. +systolic murmur Abdomen - softly distended. scant hypoactive bowel sounds appreciated. miesha- incisional tenderness. incisions well approximated with skin glue. diverting loop colostomy moist / pink, with red rubber catheter in place and scant serosang drainage in colostomy bag Extremities - warm bilaterally. 2+ pedal edema b/l lower legs. athrombics in place. calves soft and nontender b/l. Current Medications: Current Medications Sig/Rose Start time Last Medication Dose Route Stop Time Status Admin Acetaminophen 650 MG Q4P PRN 09/26 1400 AC PO Atorvastatin Calcium 40 MG 1700 09/22 1700 AC 09/27 PO 1729 Dextrose/Sodium 1,000 ML Q13H 04/02 0745 DC 09/27 Chloride IV 2330 Heparin Sodium 5,000 UNIT Q8 09/26 2200 AC 09/28 (Porcine) SC 0544 Hydrocortisone 1 BROWN BID 09/27 1542 AC 09/27 TOP 2140 Insulin Aspart 0 AT BEDTIME 09/26 2200 AC SC Insulin Aspart 0 TIDAC 09/26 1700 AC 09/27 SC 1730 Levothyroxine Sodium 0.025 MG DAILY AC 09/23 0700 AC 09/28 PO 0544 Metoprolol Tartrate 12.5 MG BID 09/25 1110 AC 09/27 PO 2146 Morphine Sulfate 2 MG Q2P PRN 09/22 1145 AC 09/26 IV 0901 Omeprazole 20 MG DAILY AC 09/27 0700 AC 09/28 PO 0545 Ondansetron HCl 4 MG Q6 PRN 09/25 0511 AC 09/25 IV 0530 Oxycodone/ 2 TAB Q4P PRN 09/26 1400 AC Acetaminophen PO Oxycodone/ 1 TAB Q4P PRN 09/22 1145 AC 09/27 Acetaminophen PO 0135 Patient Medication 1 ED ONE ONE 09/27 1445 DC Teaching ED 09/27 1446 Zinc Oxide 1 BROWN BID 09/22 1514 09/27 TOP 2140 Results Last 48 Hours of Labs: Laboratory Tests 09/28 04 0703 0615 Chemistry Sodium (137 - 145 mmol/L) Pending 136 L Potassium (3.5 - 5.1 mmol/L) Pending 3.9 Chloride (98 - 107 mmol/L) Pending 100 Carbon Dioxide (22 - 30 mmol/L) Pending 27 Anion Gap (5 - 16) Pending 9 BUN (7 - 17 mg/dL) Pending 12 Creatinine (0.5 - 1.0 mg/dL) Pending 0.5 Estimated GFR (>60 ml/min) > 60 BUN/Creatinine Ratio (7 - 25 %) Pending 24.0 Phosphorus (2.5 - 4.5 mg/dL) 3.3 Magnesium (1.6 - 2.3 mg/dL) 1.9 Hematology CBC w Diff Pending NO MAN DIFF REQ WBC (4.8 - 10.8 /CUMM) Pending 14.2 H RBC (4.20 - 5.40 /CUMM) Pending 3.78 L Hgb (12.0 - 16.0 G/DL) Pending 8.9 L Hct (37 - 47 %) Pending 28.6 L MCV (81.0 - 99.0 FL) Pending 75.7 L MCH (27.0 - 31.0 PG) Pending 23.5 L MCHC (33.0 - 37.0 G/DL) Pending 31.1 L RDW (11.5 - 14.5 %) Pending 21.1 H Plt Count (130 - 400 /CUMM) Pending 178 MPV (7.4 - 10.4 FL) Pending 7.3 L Gran % (42.2 - 75.2 %) 87.9 H Lymphocytes % (20.5 - 51.1 %) 7.2 L Monocytes % (1.7 - 9.3 %) 4.8 Eosinophils % (0 - 5 %) 0 Basophils % (0.0 - 2.0 %) 0.1 Absolute Granulocytes (1.4 - 6.5 /CUMM) 12.5 H Absolute Lymphocytes (1.2 - 3.4 /CUMM) 1.0 L Absolute Monocytes (0.10 - 0.60 /CUMM) 0.7 H Absolute Eosinophils (0.0 - 0.7 /CUMM) 0 Absolute Basophils (0.0 - 0.2 /CUMM) 0 Assessment/Plan Assessment/Plan This 76 year old female with hx dm, cad, htn, hld, mo, hypothyroidism, is POD#2 s/p diverting loop colostomy secondary to rectal cancer tolerating clears. d/c iv fluids awaiting return of bowel function to advance diet pain medication as needed please re-establish peripheral iv access *communicated to nurses hep sc - dvt ppx oob/ambulation f/u medical / cardiology recommendations f/u labs will d/w Core Measures Venous Thromboembolism VTE Risk Factors No risk factors No Mechanical VTE Prophylaxis d/t N/A MechProphylax Ordered No VTE Pharm Prophylaxis d/t NA PharmProphylax ordered
[2017-09-28 08:12] LABS: ABSOLUTE BASOPHIL COUNT 0 /CUMM (0.0-0.2); ABSOLUTE EOSINOPHIL COUNT 0 /CUMM (0.0-0.7); ABSOLUTE GRANULOCYTE CT 13.2 /CUMM (1.4-6.5); ABSOLUTE LYMPH COUNT 1.7 /CUMM (1.2-3.4); ABSOLUTE MONOCYTE COUNT 1.2 /CUMM (0.10-0.60); BASOPHIL % 0 % (0.0-2.0); EOSINOPHIL % 0.1 % (0-5); GRANULOCYTE % 81.9 % (42.2-75.2); MEAN CORPUSCULAR HGB 23.7 PG (27.0-31.0); MEAN CORPUSCULAR VOLUME 76.2 FL (81.0-99.0); MEAN PLATELET VOLUME 6.9 FL (7.4-10.4); PLATELET COUNT 115 /CUMM (130-400); RBC DISTRIBUTION WIDTH 21.8 % (11.5-14.5); RED BLOOD CELL CT 4.33 /CUMM (4.20-5.40); WHITE BLOOD CELL COUNT 16.1 /CUMM (4.8-10.8)
--- NOTE | 2017-09-28 08:17 | PN- Medicine Consult ---
DilmaSidney 09/28/17 0812: Assessment/PlanMedical Consult Assessment/Plan Assessment: The patient is a 76-year-old woman with a past medical history of obesity, diabetes, HTN, hypothyroidism, CAD post cardiac stent x 2- 2006, hx renal stones , former 40 pk yr cigarette smoker quit in 1977, positive family history of colon cancer, winth no prior EGD or colonoscopy, admitted to [facility] on 09/14/17 with complaints of 1 year of unintentional 30 pound weight loss, one month of weakness, progressive shortness of breath, loose stools, and occasionally pink tinged/scant rectal bleeding she was found to have enlarged liver with multiple lesions consistent with metastatic disease and numerous pulmonary nodules on the CAT scan abdomen/pelvis. Patient found to have poorly differentiated colon cancer with metastasis to the liver, she is admitted today for diverting colostomy, however she needs medical clearance before the procedure which was postponed until next week. Assessment: #Postop day #1 status post diverting loop colostomy secondary to rectal cancer #Metastasis to the lung and liver #Leukocytosis #CAD post cardiac stent x - 2010 #Hx of anemia/hypothyroidism #Moderate aortic stenosis on echo #Short SVT on telemetry #Hx. of diabetes, HTN, hypothyroidism Plan: * Advance diet as tolerated * Monitor colostomy site for bowel function * Pending evaluation of hematology/oncology * Follow-up cardiology recommendation in terms of diuresis * Hold oral hypoglycemic. Continue insulin sliding scale. Resume home medication including hypoglycemic agent upon discharge * Accucheck TIDAC/HS Problem List: 1. Rectal carcinoma 2. Metastases to the liver 3. Microcytic anemia 4. Colostomy in place Subjective Subjective: Seen and examined, no acute distress No events overnight Review of Systems Constitutional: Reports: no symptoms. EENTM: Reports: no symptoms. Cardiovascular: Reports: no symptoms. Respiratory: Reports: no symptoms. Gastrointestinal: Reports: no symptoms. Genitourinary: Reports: no symptoms. Objective Last 24 Hrs of Vital Signs/I&O Vital Signs Date Time Temp Pulse Resp B/P B/P Pulse O2 O2 Flow FiO2 Mean Ox Delivery Rate 09/28 0800 Room Air 09/28 0600 97.3 71 18 134/72 96 09/28 0000 Nasal 1.0L Cannula 09/27 2300 97.5 65 18 138/80 98 Nasal 1.0L Cannula 09/27 1631 Room Air 1.0L 09/27 1415 97.4 68 18 136/60 97 Room Air 09/27 0902 68 128/84 / 0900 68 128/84 Intake & Output 09/28 1600 04/04 0800 09/28 0000 Intake Total 520 1150 Output Total 600 350 Balance -80 800 Intake, IV 400 550 Intake, Oral 120 600 Output, Urine 600 350 Patient 210 lb Weight Weight Bed scale Measurement Method Physical Exam General Appearance: well developed/nourished, no apparent distress, alert, awake Cardiovascular: regular rate/rhythm, normal peripheral pulses Respiratory: normal breath sounds, chest non-tender, no respiratory distress Extremities: +2 edema in LE +1 edema in UE Current Medications: Current Medications Sig/Rose Start time Last Medication Dose Route Stop Time Status Admin Acetaminophen 650 MG Q4P PRN 09/26 1400 AC PO Atorvastatin Calcium 40 MG 1700 09/22 1700 AC 09/27 PO 1729 Dextrose/Sodium 1,000 ML Q13H 09/26 0745 DC 09/27 Chloride IV 2330 Heparin Sodium 5,000 UNIT Q8 09/26 2200 AC 09/28 (Porcine) SC 0544 Hydrocortisone 1 BROWN BID 09/27 1542 AC 09/27 TOP 2140 Insulin Aspart 0 AT BEDTIME 09/26 2200 AC SC Insulin Aspart 0 TIDAC 09/26 1700 AC 09/27 SC 1730 Levothyroxine Sodium 0.025 MG DAILY AC 09/23 0700 AC 09/28 PO 0544 Metoprolol Tartrate 12.5 MG BID 09/25 1110 AC 09/27 PO 2146 Morphine Sulfate 2 MG Q2P PRN 09/22 1145 AC 09/26 IV 0901 Omeprazole 20 MG DAILY AC 09/27 0700 AC 09/28 PO 0545 Ondansetron HCl 4 MG Q6 PRN 09/25 0511 AC 09/25 IV 0530 Oxycodone/ 2 TAB Q4P PRN 09/26 1400 AC Acetaminophen PO Oxycodone/ 1 TAB Q4P PRN 09/22 1145 AC 09/27 Acetaminophen PO 0135 Patient Medication 1 ED ONE ONE 09/27 1445 DC Teaching ED 09/27 1446 Zinc Oxide 1 BROWN BID 09/22 1514 AC 09/27 TOP 2140 Results Last 24 Hrs Lab/Tha Results: Laboratory Tests 09/28/17 0703: Sodium Pending, Potassium Pending, Chloride Pending, Carbon Dioxide Pending, Anion Gap Pending, BUN Pending, Creatinine Pending, BUN/Creatinine Ratio Pending , CBC w Diff Pending, WBC Pending, RBC Pending, Hgb Pending, Hct Pending, MCV Pending, MCH Pending, MCHC Pending, RDW Pending, Plt Count Pending, MPV Pending Dennis Hunter MD 09/28/17 2201: Attending MD Review Statement Attending Sign Off Attending Cosign Statement: I have: examined this patient, reviewed aval EMR data, discussd w/resident/PA/ CLEANING SPECIALIST, agreed w/resident/PA/CLEANING SPECIALIST, amended to note. Other Findings: The patient was seen and discussed with staff. Some difficulty with IV access and blood draws noted. Care plan as per surgery.
[2017-09-28 08:29] VITALS: BP 142/70
--- NOTE | 2017-09-28 09:53 | PN- Student ---
Subjective Subjective: NO OVERNIGHT EVENTS. PATIENT STATES SHE FEELS WELL, DENIES ABDOMINAL PAIN. REPORTS PAIN AT ATTEMPTED IV SITES SHE LOST PIV ACCESS LAST NIGHT. TOLERATING CLEAR DIET WELL WITH SMALL FREQUENT AMOUNT CONSUMED. PT REPORTS MILD ENEMA IN LOWER EXTREMITIES. DENIES N/V. UNSURE OF OSTOMY OUTPUT. HAS BEEN OOB TO CHAIR AND COMMODE. PER NURSING ONLY SCANT SEROSANGUINOUS OUTPUT IN OSTOMY BAG, NO GAS. PT DENIES HEADACHE, CP, SOB, AND DYSURIA. Objective Objective: Vital Signs Date Time Temp Pulse Resp B/P B/P Pulse O2 O2 Flow FiO2 Mean Ox Delivery Rate 09/28 0837 Room Air 1.0L 09/28 0830 71 142/70 09/28 0829 142/70 09/28 0827 Room Air 1.0L 09/28 0800 Room Air 09/28 0600 97.3 71 18 134/72 96 09/28 0000 Nasal 1.0L Cannula 09/27 2300 97.5 65 18 138/80 98 Nasal 1.0L Cannula 09/27 1631 Room Air 1.0L 09/27 1415 97.4 68 18 136/60 97 Room Air Intake & Output 09/28 1600 09/28 0800 09/28 0000 Intake Total 520 1150 Output Total 600 350 Balance -80 800 Intake, IV 400 550 Intake, Oral 120 600 Output, Urine 600 350 Patient 210 lb Weight Weight Bed scale Measurement Method GENERAL: RESTING COMFORTABLY IN BED, NAD, ACTIVELY PARTICIPATED IN EXAM ABDOMEN: MILD DISTENTION, INCISIONS C/D/I WITH SURGICAL GLUE, OSTOMY SITE PINK/ MOIST, RED TUBING IN PLACE, NO SURROUNDING ERRYTHEMA OR AREAS OF NECROTIC TISSUE. SCANT SEROSANGUINOUS FLUID IN OSTOMY BAG. HYPOACTIVE BOWELSOUNDS THROUGHOUT. MILDLY TENDER INCISION SITES. CARDIAC: REGULAR RHYTHM, NORMAL RATE, SYSTOLIC MURMUR PULM: CTAB, NO ACCESSORY MUSCLE USAGE LOWER EXTREMITIES: B/L 2+ EDEMA, NO ERYTHEMA OR DRAINAGE. PNEUMATIC COMPRESSION DEVICES IN PLACE, NO TENDERNESS. MOTOR AND SENSORY FUNCTION GROSSLY INTACT. Laboratory Tests 09/28/17 0703: Anion Gap 10, Estimated GFR > 60, BUN/Creatinine Ratio 21.7, CBC w Diff NO MAN DIFF REQ, RBC 4.33, MCV 76.2 L, MCH 23.7 L, MCHC 31.0 L, RDW 21.8 H, MPV 6.9 L, Gran % 81.9 H, Lymphocytes % 10.6 L, Monocytes % 7.4, Eosinophils % 0.1, Basophils % 0, Absolute Granulocytes 13.2 H, Absolute Lymphocytes 1.7, Absolute Monocytes 1.2 H, Absolute Eosinophils 0, Absolute Basophils 0 09/27/17 0615: Anion Gap 9, Estimated GFR > 60, BUN/Creatinine Ratio 24.0, Phosphorus 3.3, Magnesium 1.9, CBC w Diff NO MAN DIFF REQ, RBC 3.78 L, MCV 75.7 L, MCH 23.5 L , MCHC 31.1 L, RDW 21.1 H, MPV 7.3 L, Gran % 87.9 H, Lymphocytes % 7.2 L, Monocytes % 4.8, Eosinophils % 0, Basophils % 0.1, Absolute Granulocytes 12.5 H , Absolute Lymphocytes 1.0 L, Absolute Monocytes 0.7 H, Absolute Eosinophils 0 , Absolute Basophils 0 Laboratory Tests 09/28 09/27 0703 0615 Chemistry Sodium (137 - 145 mmol/L) 136 L 136 L Potassium (3.5 - 5.1 mmol/L) 3.8 3.9 Chloride (98 - 107 mmol/L) 102 100 Carbon Dioxide (22 - 30 mmol/L) 24 27 Anion Gap (5 - 16) 10 9 BUN (7 - 17 mg/dL) 13 12 Creatinine (0.5 - 1.0 mg/dL) 0.6 0.5 Estimated GFR (>60 ml/min) > 60 > 60 BUN/Creatinine Ratio (7 - 25 %) 21.7 24.0 Phosphorus (2.5 - 4.5 mg/dL) 3.3 Magnesium (1.6 - 2.3 mg/dL) 1.9 Hematology CBC w Diff NO MAN DIFF REQ NO MAN DIFF REQ WBC (4.8 - 10.8 /CUMM) 16.1 H 14.2 H RBC (4.20 - 5.40 /CUMM) 4.33 3.78 L Hgb (12.0 - 16.0 G/DL) 10.3 L 8.9 L Hct (37 - 47 %) 33.0 L 28.6 L MCV (81.0 - 99.0 FL) 76.2 L 75.7 L MCH (27.0 - 31.0 PG) 23.7 L 23.5 L MCHC (33.0 - 37.0 G/DL) 31.0 L 31.1 L RDW (11.5 - 14.5 %) 21.8 H 21.1 H Plt Count (130 - 400 /CUMM) 115 L 178 MPV (7.4 - 10.4 FL) 6.9 L 7.3 L Gran % (42.2 - 75.2 %) 81.9 H 87.9 H Lymphocytes % (20.5 - 51.1 %) 10.6 L 7.2 L Monocytes % (1.7 - 9.3 %) 7.4 4.8 Eosinophils % (0 - 5 %) 0.1 0 Basophils % (0.0 - 2.0 %) 0 0.1 Absolute Granulocytes (1.4 - 6.5 /CUMM) 13.2 H 12.5 H Absolute Lymphocytes (1.2 - 3.4 /CUMM) 1.7 1.0 L Absolute Monocytes (0.10 - 0.60 /CUMM) 1.2 H 0.7 H Absolute Eosinophils (0.0 - 0.7 /CUMM) 0 0 Absolute Basophils (0.0 - 0.2 /CUMM) 0 0 Microbiology 04/02 1200 URINE OR: Urine Culture - COMP Assessment/Plan Assessment: 76 Y/O FEMALE, PMH OF DM, CAD, HTN, HLD, HYPOTHYROIDISM, AND MORBID OBESITY, POD #2 S/P LAP TRANSVERSE DIVERTING ILEOSTOMY DUE TO OBSTRUCTING RECTAL CA. RECOVERING WELL POST-OP, AWAITING RETURN OF BOWEL FUNCTION. PAIN WELL CONTROLLED , TOLERATED CLEARS WELL. Plan: PLACE OF NEW IV LINE CONTINUE PAIN MANAGEMENT DIET: CLEARS UNTIL FURTHER BOWEL FUNCTION RETURN OOB TOLERATED PPX: SQH, PNEUMATIC COMPRESISON DEVICES, OOB. PRILOSEC FOR GI PPX INSULIN SLIDING SCALE, FINGERSTICKS ORDERED METOPROLOL FOR BP AND RATE CONTROL, HOLD FLORINA-I, APRECIATE CARDIOLOGY RECS CONTUINUE HOME MEDICATIONS
--- NOTE | 2017-09-28 10:17 | PN- Cardiology ---
Subjective Subjective: The patient is awake, alert A 4 pound weight loss has been documented overnight; however, an overall 2 L net positive has been documented overnight as well The events of the last 24 hours as well as telemetry were reviewed. Review of Systems: The review of systems is negative for chest pains, palpitations nor lightheadedness. The remainder of the 14 point review of systems is noncontributory with the exception of above. Objective Vital Signs and I&Os Vital Signs Date Time Temp Pulse Resp B/P B/P Pulse O2 O2 Flow FiO2 Mean Ox Delivery Rate 09/28 0837 Room Air 1.0L 09/28 0830 71 142/70 09/28 0829 142/70 09/28 0827 Room Air 1.0L 09/28 0800 Room Air 09/28 06 97.3 71 18 134/72 96 09/28 0000 Nasal 1.0L Cannula 09/27 2300 97.5 65 18 138/80 98 Nasal 1.0L Cannula 09/27 1631 Room Air 1.0L 09/27 1415 97.4 68 18 136/60 97 Room Air Intake & Output 09/28 1600 09/28 0800 09/28 0000 09/27 1600 09/27 0800 09/27 0000 Intake Total 520 1150 6171 639 0891 Output Total 600 350 500 300 500 Balance -80 800 914 620 840 Intake, IV 400 550 814 800 860 Intake, Oral 120 600 600 120 480 Output, Urine 600 350 500 300 500 Patient 210 lb 214 lb Weight Weight Bed scale Measurement Method Physical Exam: General: Nontoxic, no apparent distress. HEENT: Sclera and conjunctiva within normal limits, without xanthelasmas. Neck: Carotids 2+ without bruits. Respiratory: Clear to auscultation, air movement is good, without accessory respiratory muscle use. Heart: Regular rate and rhythm, without murmurs, without JVD. Abdomen: Soft, nontender, no masses, normoactive bowel sounds. Extremities: Without clubbing, cyanosis, without edema. Neuro: Nonfocal exam, strength, 5 out of 5 Skin: Within normal limits without lesions. Psych: Mood and affect: Normal Current Medications: Current Medications Sig/Rose Start time Last Medication Dose Route Stop Time Status Admin Acetaminophen 650 MG Q4P PRN 09/26 1400 AC PO Atorvastatin Calcium 40 MG 1700 09/22 1700 AC 09/27 PO 1729 Dextrose/Sodium 1,000 ML Q13H 09/26 0745 DC 09/27 Chloride IV 2330 Heparin Sodium 5,000 UNIT Q8 09/26 2200 AC 09/28 (Porcine) SC 0544 Hydrocortisone 1 BROWN BID 09/27 1542 09/28 TOP 0833 Insulin Aspart 0 AT BEDTIME 09/26 2200 AC SC Insulin Aspart 0 TIDAC 09/26 1700 AC 09/27 SC 1730 Levothyroxine Sodium 0.025 MG DAILY AC 09/23 0700 AC 09/28 PO 0544 Metoprolol Tartrate 12.5 MG BID 09/25 1110 AC 09/28 PO 0830 Morphine Sulfate 2 MG Q2P PRN 09/22 1145 AC 09/26 IV 0901 Omeprazole 20 MG DAILY AC 09/27 0700 AC 09/28 PO 0545 Ondansetron HCl 4 MG Q6 PRN 09/25 0511 AC 09/25 IV 0530 Oxycodone/ 2 TAB Q4P PRN 09/26 1400 AC Acetaminophen PO Oxycodone/ 1 TAB Q4P PRN 09/22 1145 AC 09/27 Acetamin[place] PO 0135 Patient Medication 1 ED ONE ONE 09/27 1445 DC Teaching ED 09/27 1446 Zinc Oxide 1 BROWN BID 09/22 1514 09/28 TOP 0833 Results Last 48 Hrs of Labs/Mics: Laboratory Tests 09/28/17 0703: Anion Gap 10, Estimated GFR > 60, BUN/Creatinine Ratio 21.7, CBC w Diff NO MAN DIFF REQ, RBC 4.33, MCV 76.2 L, MCH 23.7 L, MCHC 31.0 L, RDW 21.8 H, MPV 6.9 L, Gran % 81.9 H, Lymphocytes % 10.6 L, Monocytes % 7.4, Eosinophils % 0.1, Basophils % 0, Absolute Granulocytes 13.2 H, Absolute Lymphocytes 1.7, Absolute Monocytes 1.2 H, Absolute Eosinophils 0, Absolute Basophils 0 09/27/17 0615: Anion Gap 9, Estimated GFR > 60, BUN/Creatinine Ratio 24.0, Phosphorus 3.3, Magnesium 1.9, CBC w Diff NO MAN DIFF REQ, RBC 3.78 L, MCV 75.7 L, MCH 23.5 L , MCHC 31.1 L, RDW 21.1 H, MPV 7.3 L, Gran % 87.9 H, Lymphocytes % 7.2 L, Monocytes % 4.8, Eosinophils % 0, Basophils % 0.1, Absolute Granulocytes 12.5 H , Absolute Lymphocytes 1.0 L, Absolute Monocytes 0.7 H, Absolute Eosinophils 0 , Absolute Basophils 0 Microbiology / 1200 URINE OR: Urine Culture - COMP Assessment/Plan Assessment/Plan 1. 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 History of coronary artery disease with remote PCI x 2 (last 2010) 3. Anemia/weakness 4. History of hypertension 5. History of diabetes/hypothyroidism 6. Remote smoking history 7. Moderate aortic stenosis by echocardiogram 8. Short SVT burst on telemetry The patient is overall doing well from a cardiac/hemodynamic standpoint; however , has noted positive fluid balance on monitoring. There is no evidence for acute congestive heart failure; however, given the IV fluid and lower extremity edema, we may consider administering a one-time dose of diuretic to maintain a euvolemic status (furosemide 40 mg IV 1). Continue telemetry? No
[2017-09-28 13:50] VITALS: BP 150/80
--- NOTE | 2017-09-28 14:16 | PN- General Surgery ---
Surgical Brief Attending Note Brief Attending Note: Pt is post op day #2 from laparoscopic diverting loop colostomy Denies nausea Exam: stoma pink , gas in collection bag Plan: Hep lock IV Give 40 IV Lasix per cardiology Advance to full liquids Pt needs PT/OT consult for impaired mobility Please consult stoma nursing for stoma teaching
[2017-09-28 22:21] VITALS: BP 128/70
[2017-09-29 06:44] VITALS: BP 150/78
--- NOTE | 2017-09-29 08:11 | PN- General Surgery ---
Subjective Subjective: Patient feeling much better, she has more energy, she is tolerating her full liquid diet, she has minimal abdominal pain, no nausea no vomiting Objective Vital Signs and I&Os Vital Signs Date Time Temp Pulse Resp B/P B/P Pulse O2 O2 Flow FiO2 Mean Ox Delivery Rate 09/29 0644 97.7 96 16 150/78 96 09/28 2221 99.0 96 19 128/70 99 09/28 2140 128/70 09/28 1350 97.8 78 18 150/80 97 Room Air 09/28 0837 Room Air 1.0L 09/28 0830 71 142/70 09/28 0829 142/70 09/28 0827 Room Air 1.0L Intake & Output 09/29 0809/29 0000 09/28 1600 09/28 0000 Intake Total 240 420 298 543 9216 Output Total 210 500 250 600 350 Balance 30 -80 230 -80 800 Intake, IV 400 550 Intake, Oral 240 420 480 120 600 Output, Stool 10 75 Output, Urine 200 425 250 600 350 Patient 211 lb 210 lb Weight Weight Bed scale Measurement Method Physical Exam: Well-developed well-nourished no apparent distress. HEENT: Atraumatic, extraocular motion intact Neck: Supple, no lymphadenopathy Respiratory: No respiratory distress Abdomen: Obese, incision sites clean dry and intact, stoma is pink and viable, small amount of loose green stool in the bag. Positive bowel sounds. mild tenderness mid/lower abdomen. Extremities: mild LE edema, no calf pain Neuro: Alert and oriented x3 Psych: Mood affect normal, normal memory normal judgment. Skin: Warm and dry, no rash on exposed skin Results Last 48 Hours of Labs: Laboratory Tests 09/29 09/28 0705 0703 Chemistry Sodium (137 - 145 mmol/L) Pending 136 L Potassium (3.5 - 5.1 mmol/L) Pending 3.8 Chloride (98 - 107 mmol/L) Pending 102 Carbon Dioxide (22 - 30 mmol/L) Pending 24 Anion Gap (5 - 16) Pending 10 BUN (7 - 17 mg/dL) Pending 13 Creatinine (0.5 - 1.0 mg/dL) Pending 0.6 Estimated GFR (>60 ml/min) > 60 BUN/Creatinine Ratio (7 - 25 %) Pending 21.7 Hematology CBC w Diff Pending NO MAN DIFF REQ WBC (4.8 - 10.8 /CUMM) Pending 16.1 H RBC (4.20 - 5.40 /CUMM) Pending 4.33 Hgb (12.0 - 16.0 G/DL) Pending 10.3 L Hct (37 - 47 %) Pending 33.0 L MCV (81.0 - 99.0 FL) Pending 76.2 L MCH (27.0 - 31.0 PG) Pending 23.7 L MCHC (33.0 - 37.0 G/DL) Pending 31.0 L RDW (11.5 - 14.5 %) Pending 21.8 H Plt Count (130 - 400 /CUMM) Pending 115 L MPV (7.4 - 10.4 FL) Pending 6.9 L Gran % (42.2 - 75.2 %) 81.9 H Lymphocytes % (20.5 - 51.1 %) 10.6 L Monocytes % (1.7 - 9.3 %) 7.4 Eosinophils % (0 - 5 %) 0.1 Basophils % (0.0 - 2.0 %) 0 Absolute Granulocytes (1.4 - 6.5 /CUMM) 13.2 H Absolute Lymphocytes (1.2 - 3.4 /CUMM) 1.7 Absolute Monocytes (0.10 - 0.60 /CUMM) 1.2 H Absolute Eosinophils (0.0 - 0.7 /CUMM) 0 Absolute Basophils (0.0 - 0.2 /CUMM) 0 Assessment/Plan Assessment/Plan This 76 year old female with hx dm, cad, htn, hld, mo, hypothyroidism, is POD#3 s/p diverting loop colostomy secondary to rectal cancer cont fulls, ?advance diet later today or tomorrow. pain medication as needed hep sc - dvt ppx oob/ambulation f/u medical / cardiology recommendations f/u labs will d/w Core Measures Venous Thromboembolism VTE Risk Factors No risk factors No Mechanical VTE Prophylaxis d/t N/A MechProphylax Ordered No VTE Pharm Prophylaxis d/t NA PharmProphylax ordered
[2017-09-29 08:20] LABS: ABSOLUTE BASOPHIL COUNT 0 /CUMM (0.0-0.2); ABSOLUTE EOSINOPHIL COUNT 0.2 /CUMM (0.0-0.7); ABSOLUTE GRANULOCYTE CT 11.7 /CUMM (1.4-6.5); ABSOLUTE LYMPH COUNT 1.7 /CUMM (1.2-3.4); ABSOLUTE MONOCYTE COUNT 1.5 /CUMM (0.10-0.60); BASOPHIL % 0.1 % (0.0-2.0); EOSINOPHIL % 1.1 % (0-5); GRANULOCYTE % 77.6 % (42.2-75.2); HEMATOCRIT 33.2 % (37-47); MEAN CORPUSCULAR HGB 23.6 PG (27.0-31.0); MEAN CORPUSCULAR HGB CONC 31.6 G/DL (33.0-37.0); MEAN CORPUSCULAR VOLUME 74.7 FL (81.0-99.0); MEAN PLATELET VOLUME 7.9 FL (7.4-10.4); PLATELET COUNT 80 /CUMM (130-400); RBC DISTRIBUTION WIDTH 21.8 % (11.5-14.5); RED BLOOD CELL CT 4.45 /CUMM (4.20-5.40); WHITE BLOOD CELL COUNT 15.1 /CUMM (4.8-10.8)
--- NOTE | 2017-09-29 08:40 | PN- Medicine Consult ---
Dilma,[facility] 09/29/17 0840: Assessment/PlanMedical Consult Assessment/Plan Assessment: is a 70 yo lady with PMHx. of HTN, prediabetes, RA (On Methotrexate), GERD, former smoker who quit about 30 years ago, came in for elective cervical fusion surgery. Patient has the procedure today, after the procedure she was noted to be hypertensive so, medical team was consulted for management of HTN. The patient is a 76-year-old woman with a past medical history of obesity, diabetes, HTN, hypothyroidism, CAD post cardiac stent x 2- 2006, hx renal stones , former 40 pk yr cigarette smoker quit in 1977, positive family history of colon cancer, winth no prior EGD or colonoscopy, admitted to [facility] on 09/14/17 with complaints of 1 year of unintentional 30 pound weight loss, one month of weakness, progressive shortness of breath, loose stools, and occasionally pink tinged/scant rectal bleeding she was found to have enlarged liver with multiple lesions consistent with metastatic disease and numerous pulmonary nodules on the CAT scan abdomen/pelvis. Patient found to have poorly differentiated colon cancer with metastasis to the liver, she is admitted today for diverting colostomy, however she needs medical clearance before the procedure which was postponed until next week. Plan: * Advance diet as tolerated * Monitor colostomy site for bowel function * Pending evaluation of hematology/oncology * Follow-up cardiology recommendation in terms of diuresis * Hold oral hypoglycemic. Continue insulin sliding scale. Resume home medication including hypoglycemic agent upon discharge * Accucheck TIDAC/HS Problem List: 1. Colostomy in place 2. Rectal carcinoma 3. Metastases to the liver 4. Microcytic anemia Subjective Subjective: Seen and examined, feeling improvement overall, currently on full liquid diet No events overnight Vitals stable Review of Systems Constitutional: Reports: no symptoms. EENTM: Reports: no symptoms. Cardiovascular: Reports: no symptoms. Respiratory: Reports: no symptoms. Gastrointestinal: Reports: abdominal pain. Genitourinary: Reports: no symptoms. Musculoskeletal: Reports: no symptoms. Neurological/Psychological: Reports: no symptoms. Hematologic/Endocrine: Reports: no symptoms. Objective Last 24 Hrs of Vital Signs/I&O Vital Signs Date Time Temp Pulse Resp B/P B/P Pulse O2 O2 Flow FiO2 Mean Ox Delivery Rate 09/29 0942 102 142/88 04/ 0644 97.7 96 16 150/78 96 04/ 2221 99.0 96 19 128/70 99 09/28 2140 128/70 09/28 1350 97.8 78 18 150/80 97 Room Air Intake & Output 09/29 1600 04/ 0800 04/ 0000 Intake Total 240 420 Output Total 210 500 Balance 30 -80 Intake, Oral 240 420 Output, Stool 10 75 Output, Urine 200 425 Patient 211 lb Weight Physical Exam General Appearance: well developed/nourished, alert, awake, mild distress Head: atraumatic Cardiovascular: regular rate/rhythm, normal peripheral pulses Respiratory: normal breath sounds, chest non-tender, no respiratory distress Abdomen: normal bowel sounds, soft, non-tender Current Medications: Current Medications Sig/Rose Start time Last Medication Dose Route Stop Time Status Admin Acetaminophen 650 MG Q4P PRN 09/26 1400 AC PO Atorvastatin Calcium 40 MG 1700 09/22 1700 AC 09/28 PO 1621 Docusate Sodium 100 MG BID 09/28 2200 AC 09/29 PO 0942 Furosemide 40 MG ONE ONE 09/28 1745 DC 09/28 PO 09/28 1746 1811 Furosemide 40 MG ONCE ONE 09/28 1730 CAN IV 09/28 1731 Heparin Sodium 5,000 UNIT Q8 09/26 2200 AC 09/28 (Porcine) SC 2141 Hydrocortisone 1 BROWN BID 09/27 1542 AC 09/28 TOP 2144 Insulin Aspart 0 AT BEDTIME 09/26 2200 AC SC Insulin Aspart 0 TIDAC 09/26 1700 AC 09/27 SC 1730 Levothyroxine Sodium 0.025 MG DAILY AC 09/23 0700 AC 09/29 PO 0612 Metoprolol Tartrate 12.5 MG BID 09/25 1110 AC 09/29 PO 0942 Morphine Sulfate 2 MG Q2P PRN 09/22 1145 AC 09/26 IV 0901 Omeprazole 20 MG DAILY AC 09/27 0700 AC 09/29 PO 0612 Ondansetron HCl 4 MG Q6 PRN 09/25 0511 AC 09/25 IV 0530 Oxycodone/ 2 TAB Q4P PRN 09/26 1400 AC Acetaminophen PO Oxycodone/ 1 TAB Q4P PRN 09/22 1145 AC 09/29 Acetaminophen PO 0613 Zinc Oxide 1 BROWN BID 09/22 1514 09/28 TOP 2144 Results Last 24 Hrs Lab/Tha Results: Laboratory Tests 09/29/17 0705: Anion Gap 9, Estimated GFR > 60, BUN/Creatinine Ratio 21.7, CBC w Diff NO MAN DIFF REQ, RBC 4.45, MCV 74.7 L, MCH 23.6 L, MCHC 31.6 L, RDW 21.8 H, MPV 7.9 , Gran % 77.6 H, Lymphocytes % 11.3 L, Monocytes % 9.9 H, Eosinophils % 1.1, Basophils % 0.1, Absolute Granulocytes 11.7 H, Absolute Lymphocytes 1.7, Absolute Monocytes 1.5 H, Absolute Eosinophils 0.2, Absolute Basophils 0 Dennis Hunter MD 09/29/172132: Attending MD Review Statement Attending Sign Off Attending Cosign Statement: I have: examined this patient, reviewed [facility] EMR data, discussd w/resident/PA/ [employer], discussed mgmt plan w/nicolle, agreed w/resident/PA/[employer], amended to note. Other Findings: The patient was seen and discussed with resident. Agree with the plan of care as outlined. The patient received ostomy instructions today.
--- NOTE | 2017-09-29 10:40 | PN- Cardiology ---
Subjective Subjective: She is not on telemetry. According to nurses no cardiac events. Objective Vital Signs and I&Os Vital Signs Date Time Temp Pulse Resp B/P B/P Pulse O2 O2 Flow FiO2 Mean Ox Delivery Rate 09/29 0942 102 142/88 09/29 0644 97.7 96 16 150/78 96 09/28 2221 99.0 96 19 128/70 99 09/28 2140 128/70 09/28 1350 97.8 78 18 150/80 97 Room Air Intake & Output 09/29 0000 09/28 1600 09/28 0000 Intake Total 240 420 118 689 9866 Output Total 210 500 250 600 350 Balance 30 -80 230 -80 800 Intake, IV 400 550 Intake, Oral 240 420 480 120 600 Output, Stool 10 75 Output, Urine 200 425 250 600 350 Patient 211 lb 210 lb Weight Weight Bed scale Measurement Method Physical Exam: On physical exam patient appeared comfortable Pallor noted Head normocephalic atraumatic Eyes sclera anicteric conjunctiva showed bilateral extraocular muscles were normal Neck no jugular venous distention no thyroid masses no palpable nodes Chest lungs are clear bilaterally Heart regular rhythm with a grade 2/6 ejection systolic murmur Abdomen soft Extremities 1+ edema Neurological no gross motor or sensory deficits Current Medications: Current Medications Sig/Rose Start time Last Medication Dose Route Stop Time Status Admin Acetaminophen 650 MG Q4P PRN 09/26 1400 AC PO Atorvastatin Calcium 40 MG 1700 09/22 1700 AC 09/28 PO 1621 Docusate Sodium 100 MG BID 09/28 2200 AC 09/29 PO 0942 Furosemide 40 MG ONE ONE 09/28 1745 DC 09/28 PO 09/28 1746 1811 Furosemide 40 MG ONCE ONE 09/28 1730 CAN IV 09/28 1731 Heparin Sodium 5,000 UNIT Q8 09/26 2200 AC 09/28 (Porcine) SC 2141 Hydrocortisone 1 BROWN BID 09/27 1542 AC 09/28 TOP 2144 Insulin Aspart 0 AT BEDTIME 09/26 2200 AC SC Insulin Aspart 0 TIDAC 09/26 1700 AC 09/27 SC 1730 Levothyroxine Sodium 0.025 MG DAILY AC 09/23 0700 AC 09/29 PO 0612 Metoprolol Tartrate 12.5 MG BID 09/25 1110 AC 09/29 PO 0942 Morphine Sulfate 2 MG Q2P PRN 09/22 1145 AC 09/26 IV 0901 Omeprazole 20 MG DAILY AC 09/27 0700 AC 09/29 PO 0612 Ondansetron HCl 4 MG Q6 PRN 09/25 0511 AC 09/25 IV 0530 Oxycodone/ 2 TAB Q4P PRN 09/26 1400 AC Acetaminophen PO Oxycodone/ 1 TAB Q4P PRN 09/22 1145 AC 09/29 [place]amin[place] 0613 Zinc Oxide 1 BROWN BID 09/22 1514 09/28 [facility] 2144 Results Last 48 Hrs of Labs/Mics: Laboratory Tests 09/29/17 07: Anion Gap 9, Estimated GFR > 60, BUN/Creatinine Ratio 21.7, CBC w Diff NO MAN DIFF REQ, RBC 4.45, MCV 74.7 L, MCH 23.6 L, MCHC 31.6 L, RDW 21.8 H, MPV 7.9 , Gran % 77.6 H, Lymphocytes % 11.3 L, Monocytes % 9.9 H, Eosinophils % 1.1, Basophils % 0.1, Absolute Granulocytes 11.7 H, Absolute Lymphocytes 1.7, Absolute Monocytes 1.5 H, Absolute Eosinophils 0.2, Absolute Basophils 0 09/28/17 0703: Anion Gap 10, Estimated GFR > 60, BUN/Creatinine Ratio 21.7, CBC w Diff NO MAN DIFF REQ, RBC 4.33, MCV 76.2 L, MCH 23.7 L, MCHC 31.0 L, RDW 21.8 H, MPV 6.9 L, Gran % 81.9 H, Lymphocytes % 10.6 L, Monocytes % 7.4, Eosinophils % 0.1, Basophils % 0, Absolute Granulocytes 13.2 H, Absolute Lymphocytes 1.7, Absolute Monocytes 1.2 H, Absolute Eosinophils 0, Absolute Basophils 0 Assessment/Plan Assessment/Plan Insomnia this 76-year-old female has the following problems 1. 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 History of coronary artery disease with remote PCI x 2 (last 2010) 3. Anemia/weakness 4. History of hypertension 5. History of diabetes/hypothyroidism 6. Remote smoking history 7. Moderate aortic stenosis by echocardiogram 8. Short SVT burst on telemetry I would increase her metoprolol tartrate to 25 mg twice a day. I would also continue Lasix 20 mg daily for 3 days. Follow-up chest x-ray. Continue telemetry? Not applicable
--- NOTE | 2017-09-29 12:42 | PN- General Surgery ---
Surgical Brief Attending Note Brief Attending Note: Patient tolerating full liquid diet Gas and stool in the stoma collection device WBC trending down Advance to low fiber diet Follow cardiology recommendations regarding increasing beta richi and adding daily diuretic We'll give one dose of milk of magnesia Patient will likely be ready for discharge to [facility] tomorrow
--- NOTE | 2017-09-29 13:24 | Cons- Oncology ---
General Information and HPI Consulting Request Date of Consult: 09/29/17 Requested By: Destin Montoya Jr., DO Reason for Consult: Metastatic Rectal cancer with pelvic pain Source of Information: patient, family, old records, EMS Exam Limitations: no limitations History of Present Illness: CHIEF COMPLAINT: Pelvic pain Patient Identification: 76-year-old female with newly diagnosed stage IV rectal carcinoma referred for palliative radiation therapy HISTORY OF PRESENT ILLNESS: Patient was admitted on 09/14/17. Various symptoms including generalized weakness, change in bowel habits, and shortness of breath. Imaging studies revealed widespread metastatic disease as outlined below most likely of colorectal origin. On admission she had various medical issues including leukocytosis, thrombocytosis lactic acidosis, hypo-albuminemia. By history she had a fair degree of rectal pain that was perceived as hemorrhoid pain at a level of 8-9 out of 10. She was evaluated by general surgery for an impending large bowel obstruction and therefore underwent a laparoscopic diverting colostomy on 09/26/17. Patient states she is feeling much improved. She has continued symptoms of rectal/hemorrhoidal pain. She is recovering from her recent procedure and remains hospitalized at this time. CT scan abdomen/pelvis/angiogram; CT chestpulmonary embolism09/14/17: 1. No evidence of pneumonia. Numerous, diffuse pulmonary nodules consistent with metastatic disease. 2. No evidence of mediastinal or hilar adenopathy. 3. No evidence of pulmonary embolic disease. 4. Diffuse liver metastases. 5. No evidence of mesenteric ischemia, pneumoperitoneum, or intestinal obstruction. 6. No evidence of active diverticulitis. 7. Trace ascites in the perihepatic space and upper pelvis. 8. Extensive obstipation. An underlying colonic mass cannot be excluded especially in the absence of oral contrast. Colonoscopy may be appropriate to exclude a colonic mass giving the pattern of disease. 9. No evidence of adenopathy in the abdomen and pelvis. 10. Cholelithiasis without evidence cholecystitis 11. Multiple stones in the mid left ureter with proximal hydroureter and hydronephrosis. Nonobstructing calculi in a left lower pole calyx. 12. No adrenal or osseous metastases. Liver biopsy: 09/15/17: Atypical epithelial cells suspicious for carcinoma Rectal mass biopsy: 09/16/17: Poorly differentiated carcinoma; Immunohistochemical markers for DNA mismatch repair proteins (MLH1, MSH2, MSH6, PMS2) shows preserved staining for all proteins." Liver needle biopsy: 09/15/17: POORLY DIFFERENTIATED CARCINOMA WITH EXTENSIVE NECROSIS. Colonoscopy: 09/16/17 : Digital rectal exam revealed a rock hard 360, friable rectal lesion, which was easily palpable just past the dentate line. Sphincter tone was relatively normal. Gentle retroflexion was attempted, but not possible, due to the large rectal mass. The rectal mass extended at least 10 cm. It was friable, nodular, circumferential, & ulcerated, with necrotic tissue. It appeared to have a septated portion, with suggestion of possible internal fistulous tracts. Laparoscopic diverting loop transverse colostomy: 09/26/17Patient had visible bulky metastatic disease to the liver. The colon was very dilated and thick- walled consistent with chronic partial obstruction. Allergies/Medications Allergies: Coded Allergies: shellfish derived (Intermediate, G.I. DISTRESS FROM SCALLOPS 09/14/17) Home Med List: Atorvastatin Calcium 40 MG TABLET 1 TAB PO DAILY CHOLESTROL (Reported) Empagliflozin (Jardiance) 10 MG TABLET 1 TAB PO Q48 DM (Reported) Glimepiride 4 MG TABLET 1 TAB PO DAILY DM (Reported) Levothyroxine Sodium 25 MCG TABLET 1 TAB PO DAILY THYROID (Reported) Quinapril HCl 20 MG TABLET 1 TAB PO DAILY HTN (Reported) Sitagliptin Phos/Metformin HCl (Janumet 50-1,000 MG Tablet) 50 MG-1,000 MG TABLET 1 TAB PO BID DM (Reported) Current Medications: Current Medications Sig/Rose Start time Last Medication Dose Route Stop Time Status Admin Acetaminophen 650 MG Q4P PRN 09/26 1400 AC PO Atorvastatin Calcium 40 MG 1700 09/22 1700 AC 09/28 PO 1621 Docusate Sodium 100 MG BID 09/28 2200 AC 09/29 PO 0942 Furosemide 40 MG ONE ONE 09/28 1745 DC 09/28 PO 09/28 1746 1811 Furosemide 40 MG ONCE ONE 09/28 1730 CAN IV 09/28 1731 Heparin Sodium 5,000 UNIT Q8 09/26 2200 AC 09/28 (Porcine) SC 2141 Hydrocortisone 1 BROWN BID 09/27 1542 AC 09/29 TOP 1000 Insulin Aspart 0 AT BEDTIME 09/26 2200 AC SC Insulin Aspart 0 TIDAC 09/26 1700 AC 09/27 SC 1730 Levothyroxine Sodium 0.025 MG DAILY AC 09/23 0700 AC 09/29 PO 0612 Magnesium Hydroxide 30 ML ONCE ONE 09/29 1245 DC PO 09/29 1246 Metoprolol Tartrate 12.5 MG BID 09/25 1110 AC 09/29 PO 0942 Morphine Sulfate 2 MG Q2P PRN 09/22 1145 DC 09/26 IV 0901 Omeprazole 20 MG DAILY AC 09/27 0700 AC 09/29 PO 0612 Ondansetron HCl 4 MG Q6 PRN 09/25 0511 AC 09/25 IV 0530 Oxycodone/ 2 TAB Q4P PRN 09/26 1400 AC Acetaminophen PO Oxycodone/ 1 TAB Q4P PRN 09/22 1145 DC 09/29 Acetaminophen PO 0613 Zinc Oxide 1 BROWN BID 09/22 1514 AC 09/29 TOP 1000 Review of Systems Review of Systems: Review of Systems CONSTITUTIONAL 30 pound weight loss. KARNOFSKY STATUS: 80% HEENT: Negative for blurred or double vision. Negative for ringing, hoarseness or dysphagia. CARDIOVASCULAR: History of coronary artery disease status post stent placement in 2010 RESPIRATORY History of shortness of breath GASTROINTESTINAL History of change in bowel habits; intermittent diarrhea, loose stools and occasional rectal bleeding; increased abdominal girth on presentation GENITOURINARY: Negative for frequency, nocturia, or hematuria. BREAST: Negative for tenderness or nipple discharge. ENDOCRINE: History of hypothyroidism MUSCULOSKELETAL: Negative for arthritis, gout, or bone pain. SKIN: Negative for itching, bruising, or rashes. NEUROLOGIC: Negative for headaches, dizziness, numbness, tingling, mental status changes. PSYCHIATRIC: Negative for anxiety or depression. HEMATOLOGIC: History of anemia PAIN: Rectal pain 8/10 Past History Medical History Blood Transfusion Hx: No EENT: NONE Cardiovascular: CAD (s/p stents), hypertension, hyperlipidemia, HEART MURMUR Respiratory: NONE Gastrointestinal: COLORECTAL CANCER Hepatic: CHRIS TO LIVE/LUNGS Renal: nephrolithiasis Musculoskeletal: NONE Psychiatric: NONE Endocrine: diabetes, hypothyroidism, obesity Blood Disorders: NONE Cancer(s): colon/rectal cancer LOBBYIST/Reproductive: NONE Surgical History Surgical History: non-contributory Family History Relations & Conditions If Any: FATHER FH: heart disease MOTHER FH: cancer of digestive organ BROTHER FH: heart attack SISTER FHx: lung cancer BROTHER Psychosocial History Who Do You Live With? self Services at Home: None Primary Language: Montserratian Smoking Status: Former Smoker (2ppd x 40 years ) ETOH Use: denies use Illicit Drug Use: denies illicit drug use Functional Ability ADLs Independent: dressing, eating, toileting, bathing. Ambulation: independent IADLs Independent: shopping, housework, finances, telephone, medication admin. Exam & Diagnostic Data Vital Signs and I&O Vital Signs Date Time Temp Pulse Resp B/P B/P Pulse O2 O2 Flow FiO2 Mean Ox Delivery Rate 09/29 0942 102 142/88 09/29 0644 97.7 96 16 150/78 96 09/28 2221 99.0 96 19 128/70 99 /04 2140 128/70 09/28 1350 97.8 78 18 150/80 97 Room Air Intake & Output 09/29 1600 09/29 0800 09/29 0000 Intake Total 240 420 Output Total 210 500 Balance 30 -80 Intake, Oral 240 420 Output, Stool 10 75 Output, Urine 200 425 Patient 211 lb Weight Physical Exam Vitals: T: 97 7 P: 96 R: 16 BP: 142/88 O2 SAT: 96 GENERAL: Elderly female appearing in no acute distress. EYES: Anicteric sclera, EOMI, PERRLA. Conjunctivae pink. ENT: Oral cavity is clear. No evidence of thrush. Uvula is midline. NECK: There is no adenopathy in the head or neck area. No palpable thyroid nodules. HEART: S1, S2 heard. There are no murmurs or rubs Patient has regular rate and rhythm. LUNGS: Clear to auscultation. No wheezes or rales. No dullness to percussion. EXTREMITIES: No clubbing, edema, or cyanosis. ABD: Nondistended ; colostomy in place LYMPH NODES: No cervical, supraclavicular, axillary and inguinal adenopathy. PSYCHIATRIC: The patient is pleasant and cooperative. No overt signs on anxiety or depression. NEUROLOGICAL: Alert and oriented x3, CN 2-12 intact, Assessment/Plan Assessment: IMPRESSION/PLAN: Patient is a 76-year-old female with extensive metastatic rectal carcinoma with liver and lung involvement. She presented with a large rectal mass and underwent a diverting colostomy for an impending obstruction. Medically and surgically she has stabilized. She presented with significant perirectal pain and has been referred by Dr. iqbal for consideration of local radiation. I discussed this with the patient and her daughter who has power of corporate associate attorney and discussed the palliative benefit of local radiation to the rectum. She will continue to recover from the surgical procedure and will be considered for systemic therapy per Dr. Paulino. At this time she can undergo CT simulation for treatment planning and undergo several fractions of radiation during her hospitalization and continue when she is discharged to most likely an extended care facility. Both the patient and the daughter agreement and wished to proceed. I discussed the logistics as well as the anticipated side effects of fatigue, increased bowel irritability, dysuria and less likely decreasing her hematologic counts. Recommendations: Will proceed with CT simulation planned for 09/30/17 930am Anticipated initiating treatments next week and continue as outpatient/ ECF Consult Acknowledgment - Thank you for your consult request.
[2017-09-29 14:53] VITALS: BP 134/58
[2017-09-30 06:50] VITALS: BP 128/60
[2017-09-30] MEDS ORDERED: LASIX20 M1 PO ×2 (07:13→11:53)
[2017-09-30] MEDS ORDERED: PERCOCET 5-3251 EACH PO (07:13)
[2017-09-30] MEDS ORDERED: METOPROLOL TART25 M1 PO (07:13)
--- NOTE | 2017-09-30 07:30 | PN- General Surgery ---
Subjective Subjective: Patient reports postop pain which is well controlled with Percocet. She is tolerated a diet without any nausea or vomiting. She is scheduled to have a CT stimulation today. She offers no other complaints. Objective Vital Signs and I&Os Vital Signs Date Time Temp Pulse Resp B/P B/P Pulse O2 O2 Flow FiO2 Mean Ox Delivery Rate 09/30 0650 98.4 81 12 128/60 98 Room Air 09/29 2104 88 134/58 09/29 1453 98.4 88 18 134/58 96 09/29 0942 102 142/88 Intake & Output 09/30 0809/30 0000 09/29 1600 09/29 0809/29 0000 09/28 1600 Intake Total 360 200 250 240 420 480 Output Total 500 1500 150 210 500 250 Balance -140 -1300 100 30 -80 230 Intake, Oral 360 200 250 240 420 480 Number 2 Bowel Movements Output, Stool 100 1200 10 75 Output, Urine 400 300 150 200 425 250 Patient 211 lb Weight Physical Exam: Gen - resting comfortably in nad Cardiac - S1S2, + murmur Lungs - CTA Abd - soft, obese colostomy appliance in place with stoma bridge and brown stool , appropriately tender, no rebound or guarding Ext - 2+ pitting edema no calf tenderness B/L Current Medications: Current Medications Sig/Rose Start time Last Medication Dose Route Stop Time Status Admin Acetaminophen 650 MG Q4P PRN 09/26 1400 AC PO Atorvastatin Calcium 40 MG 1700 09/22 1700 AC 09/29 PO 1630 Docusate Sodium 100 MG BID 09/28 2200 AC 09/29 PO 2105 Furosemide 20 MG DAILY 09/29 1415 AC 09/29 PO 10/01 1001 1630 Heparin Sodium 5,000 UNIT Q8 09/26 2200 AC 09/30 (Porcine) SC 0607 Hydrocortisone 1 BROWN BID 09/27 1542 AC 09/29 TOP 2122 Insulin Aspart 0 AT BEDTIME 09/26 220 AC SC Insulin Aspart 0 TIDAC 09/26 1700 AC 09/27 SC 1730 Levothyroxine Sodium 0.025 MG DAILY AC 09/23 0700 AC 09/30 PO 0607 Magnesium Hydroxide 30 ML ONCE ONE 09/29 1245 DC 09/29 PO 09/29 1246 1343 Metoprolol Tartrate 25 MG BID 09/29 220 AC 09/29 PO 2104 Metoprolol Tartrate 12.5 MG BID 09/25 1110 DC 09/29 PO 0942 Morphine Sulfate 2 MG Q2P PRN 09/22 1145 DC 09/26 IV 0901 Omeprazole 20 MG DAILY AC 09/27 0700 AC 09/30 PO 0607 Ondansetron HCl 4 MG Q6 PRN 09/25 0511 AC 09/25 IV 0530 Oxycodone/ 1 TAB Q4P PRN 09/29 1345 AC 09/30 Acetaminophen PO 0730 Oxycodone/ 2 TAB Q4P PRN 09/26 1400 DC Acetaminophen PO Oxycodone/ 1 TAB Q4P PRN 09/22 1145 DC 09/29 Acetaminophen PO 0613 Zinc Oxide 1 BROWN BID 09/22 1514 AC 09/29 [facility] 2121 Results Last 48 Hours of Labs: Laboratory Tests 09/29 704 Chemistry Sodium (137 - 145 mmol/L) 138 Potassium (3.5 - 5.1 mmol/L) 3.6 Chloride (98 - 107 mmol/L) 102 Carbon Dioxide (22 - 30 mmol/L) 27 Anion Gap (5 - 16) 9 BUN (7 - 17 mg/dL) 13 Creatinine (0.5 - 1.0 mg/dL) 0.6 Estimated GFR (>60 ml/min) > 60 BUN/Creatinine Ratio (7 - 25 %) 21.7 Hematology CBC w Diff NO MAN DIFF REQ WBC (4.8 - 10.8 /CUMM) 15.1 H RBC (4.20 - 5.40 /CUMM) 4.45 Hgb (12.0 - 16.0 G/DL) 10.5 L Hct (37 - 47 %) 33.2 L MCV (81.0 - 99.0 FL) 74.7 L MCH (27.0 - 31.0 PG) 23.6 L MCHC (33.0 - 37.0 G/DL) 31.6 L RDW (11.5 - 14.5 %) 21.8 H Plt Count (130 - 400 /CUMM) 80 L MPV (7.4 - 10.4 FL) 7.9 Gran % (42.2 - 75.2 %) 77.6 H Lymphocytes % (20.5 - 51.1 %) 11.3 L Monocytes % (1.7 - 9.3 %) 9.9 H Eosinophils % (0 - 5 %) 1.1 Basophils % (0.0 - 2.0 %) 0.1 Absolute Granulocytes (1.4 - 6.5 /CUMM) 11.7 H Absolute Lymphocytes (1.2 - 3.4 /CUMM) 1.7 Absolute Monocytes (0.10 - 0.60 /CUMM) 1.5 H Absolute Eosinophils (0.0 - 0.7 /CUMM) 0.2 Absolute Basophils (0.0 - 0.2 /CUMM) 0 Assessment/Plan Assessment/Plan 76 F POD 3 s/p diverting loop colostomy secondary to rectal cancer Cont low residue diet Pain regimen prn Lasix 20 daily x 2 days Metoprolol 25 mg bid DVT ppx - hsq, alps Encourage oob ambulation F/u CXR CT stimulation for radiation mapping D/c to SNF today Appreciate cardiology/onc/medicines involvement D/w Dr. Montoya Core Measures Venous Thromboembolism VTE Risk Factors No risk factors No Mechanical VTE Prophylaxis d/t N/A MechProphylax Ordered No VTE Pharm Prophylaxis d/t NA PharmProphylax ordered
--- NOTE | 2017-09-30 07:31 | PN- General Surgery ---
Surgical Brief Attending Note Brief Attending Note: The patient is tolerating diet Her stoma is functioning Plan is as follows: She will go to radiation oncology department for radiation mapping and planning, after that she can be discharged to [facility] She should come to my office for follow-up within the next 2 weeks. At that point we will remove her stoma bridge
--- NOTE | 2017-09-30 08:42 | PN- Medicine Consult ---
Sidney Perera 09/30/17 0842: Assessment/PlanMedical Consult Assessment/Plan Assessment: is a 70 yo lady with PMHx. of HTN, prediabetes, RA (On Methotrexate), GERD, former smoker who quit about 30 years ago, came in for elective cervical fusion surgery. Patient has the procedure today, after the procedure she was noted to be hypertensive so, medical team was consulted for management of HTN. The patient is a 76-year-old woman with a past medical history of obesity, diabetes, HTN, hypothyroidism, CAD post cardiac stent x 2- 2006, hx renal stones , former 40 pk yr cigarette smoker quit in 1977, positive family history of colon cancer, winth no prior EGD or colonoscopy, admitted to [facility] on 09/14/17 with complaints of 1 year of unintentional 30 pound weight loss, one month of weakness, progressive shortness of breath, loose stools, and occasionally pink tinged/scant rectal bleeding she was found to have enlarged liver with multiple lesions consistent with metastatic disease and numerous pulmonary nodules on the CAT scan abdomen/pelvis. Patient found to have poorly differentiated colon cancer with metastasis to the liver, she is admitted today for diverting colostomy, however she needs medical clearance before the procedure which was postponed until next week. Plan: * Advance diet as tolerated * Monitor colostomy site for bowel function * Pending evaluation of hematology/oncology * Follow-up cardiology recommendation in terms of diuresis * Hold oral hypoglycemic. Continue insulin sliding scale. Resume home medication including hypoglycemic agent upon discharge * Accucheck TIDAC/HS Subjective Subjective: seen and examined no events overnight Objective Last 24 Hrs of Vital Signs/I&O Vital Signs Date Time Temp Pulse Resp B/P B/P Pulse O2 O2 Flow FiO2 Mean Ox Delivery Rate 09/30 1341 Room Air 1.0L 09/30 1152 Room Air 1.0L 09/30 1109 Room Air 1.0L 09/30 1044 98.4 81 12 128/60 04/06 0735 81 128/60 04/06 0650 98.4 81 12 128/60 98 Room Air /05 2104 88 134/58 04/05 1453 98.4 88 18 134/58 96 Intake & Output 09/30 1600 /06 0800 04/ 0000 Intake Total 360 200 Output Total 500 1500 Balance -140 -1300 Intake, Oral 360 200 Output, Stool 100 1200 Output, Urine 400 300 Current Medications: Current Medications Sig/Rose Start time Last Medication Dose Route Stop Time Status Admin Acetaminophen 650 MG Q4P PRN 09/26 1400 AC PO Atorvastatin Calcium 40 MG 1700 09/22 1700 AC 09/29 PO 1630 Docusate Sodium 100 MG BID 09/28 2200 AC 09/30 PO 0735 Furosemide 20 MG DAILY 09/29 1415 AC 09/30 PO 10/01 1001 0735 Heparin Sodium 5,000 UNIT Q8 09/26 2200 AC 09/30 (Porcine) SC 1251 Hydrocortisone 1 BROWN BID 09/27 1542 AC 09/30 TOP 0736 Insulin Aspart 0 AT BEDTIME 09/26 2200 AC SC Insulin Aspart 0 TIDAC 09/26 1700 AC 09/27 SC 1730 Levothyroxine Sodium 0.025 MG DAILY AC 09/23 0700 AC 09/30 PO 0607 Metoprolol Tartrate 25 MG BID 09/29 2200 AC 09/30 PO 0735 Metoprolol Tartrate 12.5 MG BID 09/25 1110 DC 09/29 PO 0942 Omeprazole 20 MG DAILY AC 09/27 0700 AC 09/30 PO 0607 Ondansetron HCl 4 MG Q6 PRN 09/25 0511 AC 09/25 IV 0530 Oxycodone/ 1 TAB Q4P PRN 09/29 1345 AC 09/30 Acetaminophen PO 0730 Zinc Oxide 1 BROWN BID 09/22 1514 AC 09/30 TOP 0736 Results Last 24 Hrs Lab/Tha Results: No labs Dennis Hunter MD 09/30/17 2217: Attending MD Review Statement Attending Sign Off Attending Cosign Statement: I have: examined this patient, reviewed [facility] EMR data, discussd w/resident/PA/ [employer], discussed mgmt plan w/CM, discussed mgmt plan w/pt, agreed w/resident/PA/FOR[employer] HE[employer], amended to note. Other Findings: The patient was seen and discussed with case management and house staff. She was originally scheduled to go to [facility], however patient wished another STR closer to [facility] where she will be having XRT done (simulation done today by Dr. Walden). Case management was able to get bed at [facility] for STR and she will go there today.
--- NOTE | 2017-09-30 10:19 | PN- Cardiology ---
Subjective Subjective: Doing well. Offers no new complaints. Objective Vital Signs and I&Os Vital Signs Date Time Temp Pulse Resp B/P B/P Pulse O2 O2 Flow FiO2 Mean Ox Delivery Rate 09/30 0735 81 128/60 04/ 0650 98.4 81 12 128/60 98 Room Air 09/29 2104 88 134/58 04/ 1453 98.4 88 18 134/58 96 Intake & Output 09/30 1600 09/30 0800 09/30 0000 09/29 1600 09/29 0800 09/29 0000 Intake Total 360 200 250 240 420 Output Total 500 1500 150 210 500 Balance -140 -1300 100 30 -80 Intake, Oral 360 200 250 240 420 Number 2 Bowel Movements Output, Stool 100 1200 10 75 Output, Urine 400 300 150 200 425 Patient 211 lb Weight Physical Exam: General: no apparent distress. Alert. Eyes: No obvious scleral icterus. HEENT: No jugular venous distention or abnormal jugular venous pulsations. Cardiovascular: Normal intensity S1/S2. 2 out of 6 systolic murmur Respiratory: Lungs clear to auscultation bilaterally. Abdomen: no guarding or rebound tenderness. Musculoskeletal: No clubbing or cyanosis noted; 1+ lower extremity edema Skin: Warm Neurologic: No gross focal deficits noted. Current Medications: Current Medications Sig/Rose Start time Last Medication Dose Route Stop Time Status Admin Acetaminophen 650 MG Q4P PRN 09/26 1400 AC PO Atorvastatin Calcium 40 MG 1700 09/22 1700 AC 09/29 PO 1630 Docusate Sodium 100 MG BID 09/28 2200 AC 09/30 PO 0735 Furosemide 20 MG DAILY 09/29 1415 AC 09/30 PO 10/01 1001 0735 Heparin Sodium 5,000 UNIT Q8 09/26 2200 AC 09/30 (Porcine) SC 0607 Hydrocortisone 1 BROWN BID 09/27 1542 AC 09/30 TOP 0736 Insulin Aspart 0 AT BEDTIME 09/26 2200 AC SC Insulin Aspart 0 TIDAC 09/26 1700 AC 09/27 SC 1730 Levothyroxine Sodium 0.025 MG DAILY AC 09/23 0700 AC 09/30 PO 0607 Magnesium Hydroxide 30 ML ONCE ONE 09/29 1245 DC 09/29 PO 09/29 1246 1343 Metoprolol Tartrate 25 MG BID 09/29 2200 AC 09/30 PO 0735 Metoprolol Tartrate 12.5 MG BID 09/25 1110 DC 09/29 PO 0942 Morphine Sulfate 2 MG Q2P PRN 09/22 1145 DC 09/26 IV 0901 Omeprazole 20 MG DAILY AC 09/27 0700 AC 09/30 PO 0607 Ondansetron HCl 4 MG Q6 PRN 09/25 0511 AC 09/25 IV 0530 Oxycodone/ 1 TAB Q4P PRN 09/29 1345 AC 09/30 Acetaminophen PO 0730 Oxycodone/ 2 TAB Q4P PRN 09/26 1400 DC Acetaminophen PO Oxycodone/ 1 TAB Q4P PRN 09/22 1145 DC 09/29 Acetaminophen PO 0613 Zinc Oxide 1 BROWN BID 09/22 1514 AC 09/30 TOP 0736 Results Last 48 Hrs of Labs/Mics: Laboratory Tests 09/29/17 07: Anion Gap 9, Estimated GFR > 60, BUN/Creatinine Ratio 21.7, CBC w Diff NO MAN DIFF REQ, RBC 4.45, MCV 74.7 L, MCH 23.6 L, MCHC 31.6 L, RDW 21.8 H, MPV 7.9 , Gran % 77.6 H, Lymphocytes % 11.3 L, Monocytes % 9.9 H, Eosinophils % 1.1, Basophils % 0.1, Absolute Granulocytes 11.7 H, Absolute Lymphocytes 1.7, Absolute Monocytes 1.5 H, Absolute Eosinophils 0.2, Absolute Basophils 0 Assessment/Plan Assessment/Plan 1. 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 History of coronary artery disease with remote PCI x 2 (last 2010) 3. Anemia/weakness 4. History of hypertension 5. History of diabetes/hypothyroidism 6. Remote smoking history 7. Moderate aortic stenosis by echocardiogram 8. Short SVT burst on telemetry Doing well. Remains hemodynamically stable. I would continue her on the metoprolol 25 twice daily and Lasix 20 mg p.o. daily on discharge. She should follow-up in our office within 1 week of discharge. Miguelito Langley MD [facility] Continue telemetry? No
[2017-09-30 10:44] VITALS: BP 128/60
--- NOTE | 2017-09-30 11:59 | RADIOLOGY REPORT ---
EXAMINATION: XR CHEST CLINICAL INFORMATION: Post op edema. Evaluate for CHF. COMPARISON: CTA chest 09/14/2017 and chest x-ray 08/25/2017 TECHNIQUE: 2 views of the chest were obtained. FINDINGS: Cardiac silhouette is normal in size. Lungs are adequately aerated. Minimal engorgement of the central pulmonary vasculature without overt CHF. Numerous bilateral pulmonary nodules again identified. No gross pleural effusion. Diffuse degenerative changes of the spine. IMPRESSION: Minimal engorgement of the central pulmonary vasculature without overt CHF. Numerous bilateral pulmonary nodules again identified.
[2017-09-30 14:36] VITALS: BP 122/62
== END 2017-09-30 18:00 | DRG 330 ==
LOC: 1NO 01:14 → SDA 01:14 → 2NB 01:14 → ENRESERV 12:34 → ENTRNSPT 13:00 → 2NB 13:26 → EDTRNSPT 13:26 → EDTRNSPTSTS 13:26 → CMPTRNSPT 13:36 → ENTRNSPT 09-24 16:46 → EDTRNSPTSTS 09-24 16:56 → EDTRNSPT 09-24 16:56 → 1NO 09-24 17:16 → CMPTRNSPT 09-24 17:41 → ENTRNSPT 09-26 14:56 → EDTRNSPT 09-26 14:57 → EDTRNSPTSTS 09-26 14:57 → CMPTRNSPT 09-26 15:21 → ENPENDDIS 09-30 07:41 → 1NO 09-30 11:35
PROVIDERS: Nurse Practitioner; Physician Assistant; Physician Assistant Surgical
PROC: 30233N1 Transfusion of Nonautologous Red Blood Cells into Peripheral Vein, Percutaneous Approach (ICD-10-PCS; 2017-09-25)
PROC: 0D1L4Z4 Bypass Transverse Colon to Cutaneous, Percutaneous Endoscopic Approach (ICD-10-PCS; principal; 2017-09-26)
DX: C19 Malignant neoplasm of rectosigmoid junction (principal); C78.7 Secondary malignant neoplasm of liver and intrahepatic bile duct; R18.0 Malignant ascites; C78.00 Secondary malignant neoplasm of unspecified lung; Z68.41 Body mass index [BMI] 40.0-44.9, adult; E11.9 Type 2 diabetes mellitus without complications; E66.9 Obesity, unspecified; Z79.84 Long term (current) use of oral hypoglycemic drugs; E78.5 Hyperlipidemia, unspecified; I25.10 Atherosclerotic heart disease of native coronary artery without angina pectoris; I10 Essential (primary) hypertension; R01.1 Cardiac murmur, unspecified; E03.9 Hypothyroidism, unspecified; Z98.61 Coronary angioplasty status; Z87.891 Personal history of nicotine dependence; K80.20 Calculus of gallbladder without cholecystitis without obstruction; I35.0 Nonrheumatic aortic (valve) stenosis; D72.829 Elevated white blood cell count, unspecified; D50.9 Iron deficiency anemia, unspecified; R63.4 Abnormal weight loss; R55 Syncope and collapse
CPT/HCPCS: 1NP; 36415; 36592; 71046; 82436; 86920; 87086; 93005; 93010; 93306; 97110-GO; 97116-GO; 97161-GP; 97530-GO; C9399; J0131; J0690; J1100; J1200; J1644; J1940; J2405; J7042; P9016

== ENCOUNTER 2017-10-06 12:32 | Inpatient (IN) | payer OTHER ==
[~2017-10-06] VITALS: Ht 149.9 cm; Wt 94.1 kg
[~2017-10-06 12:32] MED LIST changes: +LASIX20 M1 PO; +METOPROLOL TART25 M1 PO; +PERCOCET 5-3251 EACH PO
--- NOTE | 2017-10-06 12:42 | ED GENERAL ADULT ---
History of Present Illness General Chief Complaint: General Adult Stated Complaint: PAIN Source: patient, family, old records Exam Limitations: no limitations Allergies Coded Allergies: shellfish derived (Intermediate, G.I. DISTRESS FROM [place] 09/14/17) Reconcile Medications Atorvastatin Calcium 40 MG TABLET 1 TAB PO DAILY CHOLESTROL (Reported) Calcium Carbonate/Vitamin D3 (Calcium 600 + Vit D 400 Tablet) 600 MG-400 TABLET 1 TAB PO BID VITAMIN SUPPORT (Reported) Empagliflozin (Jardiance) 10 MG TABLET 1 TAB PO Q48 DM (Reported) Ferrous Sulfate 325 MG (65 MG IRON) TABLET 1 TAB PO BID IRON, VITAMIN ( Reported) Furosemide (Lasix) 20 MG TABLET 1 TAB PO DAILY HTN Glimepiride 4 MG TABLET 1 TAB PO DAILY DM (Reported) Insulin Lispro (Humalog Kwikpen U-100) (Unknown Strength) INSULN.PEN (Unknown Dose) SC SEE SLIDING SCALE DIABETES (Reported) Levothyroxine Sodium 25 MCG TABLET 1 TAB PO DAILY THYROID (Reported) Lisinopril 20 MG TABLET 1 TAB PO DAILY HEART (Reported) Metoprolol Tartrate 25 MG TABLET 1 TAB PO BID HTN Multivitamin (Daily Multiple Vitamin) 1 EACH TABLET 1 TAB PO DAILY VITAMIN SUPPORT (Reported) Oxycodone HCl/Acetaminophen (Percocet 5-325 MG Tablet) 5 MG-325 MG TABLET 1-2 TAB PO Q4-6 PRN PAIN Quinapril HCl 20 MG TABLET 1 TAB PO DAILY HTN (Reported) Sitagliptin Phos/Metformin HCl (Janumet 50-1,000 MG Tablet) 50 MG-1,000 MG TABLET 1 TAB PO BID DM (Reported) Triage Note: PT BIBA FROM CANCER CENTER WITH C/O INTRACTABLE PAIN 2/2 COLON CA. PT WAS DUE TO RECEIVE 1ST RADIATION SCHED TODAY PALLIATIVE TX BUT WAS IN TOO MUCH PAIN TO CONTINUE. PT'S DAUGHTER REPORTS PT HAS ONLY BEEN RECEIVING 5/325 PERCOCET FOR PAIN WITH LAST DOSE APPROX 0930 THIS AM. PT ARRIVES AWAKE, MOANING, DOES NOT RECALL HOW SHE GOT HERE. EMS REPORTS O2 SAT AT 94% ON RA. PLACED ON 3L NC FOR COMFORT Triage Nurses Notes Reviewed? yes Duration: week(s):, constant Timing: recent history Injury Environment: home Severity: severe Severity Numbers: 10 No Modifying Factors: none Associated Symptoms: denies HPI: 76-year-old woman with a past medical history of metastatic rectal ca, liver and lung mets, diabetes, HTN, hypothyroidism, CAD post cardiac stent x 2- 2006, hx renal stones, former smoker presents brought in rapid response from the cancer center the patient was there at today for her first radiation treatment. She has been at [facility] since being discharged from this hospital. She's been taking Percocet for the pain however her pain in her buttocks and lower back up and getting worse. No recent trauma or fall no fever no chills. Her daughter states that at times while at rehabilitation she has not been her normal self at times acting confused. She is at her normal mentation today. Her daughter does state that she has had a nonproductive cough which is new. The patient denies any chest pain (Eliud Bee) Vital Signs & Intake/Output Vital Signs & Intake/Output Vital Signs Date Time Temp Pulse Resp B/P B/P Pulse O2 O2 Flow FiO2 Mean Ox Delivery Rate 10/06 1624 98.1 81 24 122/58 98 Nasal 3.0L Cannula 10/06 1441 98.0 78 16 115/54 97 Nasal 3.0L Cannula 10/06 1257 Room Air 10/06 1241 98.3 84 22 109/53 100 Room Air (Machelle ALBARADO,Shan Almodovar) Past History Medical History Any Pertinent Medical History? see below for history EENT: NONE Cardiovascular: CAD (s/p stents), hypertension, hyperlipidemia, HEART MURMUR Respiratory: NONE Gastrointestinal: COLORECTAL CANCER Hepatic: CHRIS TO LIVE/LUNGS Renal: nephrolithiasis Musculoskeletal: NONE Psychiatric: NONE Endocrine: diabetes, hypothyroidism, obesity Blood Disorders: NONE Cancer(s): colon/rectal cancer PRUNER/Reproductive: NONE History of MRSA: No History of VRE: No History of CDIFF: No Surgical History Surgical History: non-contributory Psychosocial History Who do you live with Patient/Self Services at Home None What is your primary language Wolof Family History Family History, If Any: FATHER FH: heart disease MOTHER FH: cancer of digestive organ BROTHER FH: heart attack SISTER FHx: lung cancer BROTHER Hx Contributory? No (Eliud Bee) Review of Systems Review of Systems Constitutional: Reports: see HPI. Comments Review of systems: See HPI, All other systems negative. Constitutional, no chills no fever, HEENT: no sore throat no congestion, Cardiovascular: No chest pain , no palpitation Skin: no rashes, no change in skin Respiratory: No dyspnea cough no sputum GI: No nausea no vomiting, no diarrhea, : No dysuria No hematuria, no frequency Muscle skeletal: joint pain, back pain, no neck pain, Neurologic: , no headache Heme/endocrine: No bruising Immunology: No lymphadenopathy (Debora RACHEL,Eliud) Physical Exam Physical Exam General Appearance: alert, awake, obese Comments: Elderly female in no acute distress HEENT: Normal EENT exam; PERRL, EOMI, no nystagmus. HEAD is atraumatic. moist mucous membranes. Neck: Supple, normal range of motion Back: Limited range of motion secondary to pain Cardiovascular: Regular rate and rhythms no murmurs rubs Respiratory: No respiratory distress. Patient speaking in full complete sentences. Breath sounds clear to auscultation bilaterally: NO W/R/R Abdomen: Soft, obese, stoma is present to the left abdominal wall there is no surrounding erythema the incisions are clean dry and intact nondistended, no appreciable organomegaly. Normal bowel sounds. No rebound/guarding, No appreciable enlargement of the abdominal aorta, No ascites. Extremity: No edema, full range of motion of extremities Neuro: Alert oriented x3, motor sensory normal, cranial nerves II through XII grossly intact. There were no obvious focal neurologic abnormalities. Skin: No appreciable rash on exposed skin, skin is warm and dry. Psych: Mood and affect is normal, memory and judgment is normal. Core Measures ACS in differential dx? No CVA/TIA Diagnosis: No Sepsis Present: No Sepsis Focused Exam Completed? No (Eliud Bee) Progress Differential Diagnoses I considered the following diagnoses in my evaluation of the patient: [ Malignancy, chronic pain, dehydration, pneumonia, CHF Diagnostic Imaging: Viewed by Me: Radiology Read, CT Scan. Discussed w/RAD: Radiology Read, CT Scan. Radiology Impression: PATIENT: MOHAMUD KUMARI PRESENT AGE: 76 PATIENT ACCOUNT NO: [id number] : 42 LOCATION: [facility] ORDERING PHYSICIAN: Eliud RACHEL SERVICE DATE: 10/06/17 EXAM TYPE: CAT - CT HEAD WO IV CONTRAST EXAMINATION: CT HEAD WITHOUT CONTRAST CLINICAL INFORMATION: Altered mental status. History of colon and lung carcinoma. COMPARISON: No relevant prior imaging. TECHNIQUE: Contiguous axial imaging was performed from the skull base to vertex without intravenous administration of contrast. DLP: 594.97 mGy-cm FINDINGS: There is no acute intracranial hemorrhage or abnormal extra-axial collection. No intracranial mass effect or midline shift. Lateral and third ventricles are proportionate to the subarachnoid spaces. No hydrocephalus. Scattered nonspecific foci of hypoattenuation are visualized within the periventricular white matter that most likely represent a chronic manifestation of small vessel ischemia. Frias-white matter differentiation is grossly preserved and there is no evidence of acute territorial infarct. The calvarium and skull base are intact. Mastoid air cells and middle ear cavities are well aerated. Visualized paranasal sinuses are well- aerated. IMPRESSION: Scattered chronic small vessel ischemic changes within the periventricular white matter. Otherwise unremarkable examination. No evidence of acute territorial infarct or hemorrhage. DICTATED BY: Jorje Blackman MD DATE /TIME DICTATED:10/06/171439 WOOD ROUTER:RODRIGUEZ DATE/TIME TRANSCRIBED: 10/06/171439 CONFIDENTIAL, DO NOT COPY WITHOUT APPROPRIATE AUTHORIZATION. < Electronically signed in Other Vendor System> SIGNED BY: Jorje Blackman MD 10/06/171444, PATIENT: MOHAMUD KUMARI PRESENT AGE: 76 PATIENT ACCOUNT NO: [id number] : 42 LOCATION: [facility] ORDERING PHYSICIAN: Eliud RACHEL SERVICE DATE: 10/06/17 EXAM TYPE: RAD - XRY-PORTABLE CHEST XRAY EXAMINATION: XR PORTABLE CHEST CLINICAL INFORMATION: Cough and altered mental status with history of metastatic cancer to the lungs. COMPARISON: Chest x-ray 09/30/2017. TECHNIQUE: Portable frontal view of the chest was obtained. FINDINGS: Low lung volumes. Similar pattern nodules throughout the lungs in keeping with the history of metastatic disease. No focal consolidation, pleural effusion, or pneumothorax. Stable central vascular congestion without overt edema. Cardiac silhouette and osseous structures are stable. IMPRESSION: Stable pattern nodules throughout the right and left lung compatible with a history of pulmonary metastatic disease. No superimposed acute process. Low lung volumes. DICTATED BY: Shan Diez MD DATE/TIME DICTATED:10/06/171452 WOOD ROUTER:RAD.RODRIGUEZ DATE/TIME TRANSCRIBED:10/06/171452 CONFIDENTIAL, DO NOT COPY WITHOUT APPROPRIATE AUTHORIZATION. <Electronically signed in Other Vendor System> SIGNED BY: Shan Diez MD 10/06/17 1500 Initial ED EKG: no ST T wave changes, STACH AT 100 Prior EKG: unchanged Rhythm Strip: sinus tachycardia (Eliud Bee) Plan of Care: Orders Procedure Date/time Status Clear Liquid Diet 10/07 B Active MRI-LUMBAR SPINE W & W/O YAMILEX 10/07 0600 Active CBC WITHOUT DIFFERENTIAL 10/07 0600 Active BASIC ELECTROLYTES PLUS BUN&CR 10/07 0600 Active Nothing by Mouth 10/06 D Complete Pathway - chart 10/06 1847 Active House Staff 10/06 1847 Active Code Status 10/06 1847 Active Patient Data 10/06 1700 Active Misc Message 10/06 1646 Active ED Holding Orders 10/06 1646 Active Admit to inpatient 10/06 1646 Active Vital Signs 10/06 1646 Active FingerStick- Glucose 10/06 1646 Active Code Status 10/06 1646 Complete Add-on Test (ER Only) 10/06 1502 Active EKG 10/06 1502 Active TROPONIN LEVEL 10/06 1358 Active GAMMA GLUTAMYL TRANSFERASE 10/06 1358 Active COMPREHENSIVE METABOLIC PANEL 10/06 1259 Active CBC WITHOUT DIFFERENTIAL 10/06 1259 Complete Lab Add-on Test 10/06 UNK Active VTE Mechanical Prophylaxis 10/06 UNK Active Vital Signs 10/06 UNK Active Intake & Output 10/06 UNK Active FingerStick- Glucose 10/06 UNK Active Current Medications Sig/Rose Start time Last Medication Dose Stop Time Status Admin Ketorolac 30 MG Q6 10/06 2359 UNVr Tromethamine (Toradol) Dextrose/Sodium 1,000 ML .Q10H 10/06 1845 AC Chloride 10/07 1444 (D5-Normal Saline) Ondansetron HCl 4 MG Q8P PRN 10/06 1845 AC (Zofran) Dextrose/Water 1,000 ML .Q6H40M 10/06 1500 AC 10/06 (Dextrose 10%) 1544 Laboratory Tests 10/06/17 1358: Anion Gap 6, Estimated GFR > 60, BUN/Creatinine Ratio 31.4 H, Glucose 22 *L, Calcium 7.5 L, Total Bilirubin 0.8, GGT Pending, AST 501 H, ALT 92 H, Alkaline Phosphatase 2012 H, Troponin I 0.03, Total Protein 4.6 L, Albumin 1.9 L, Globulin 2.7, Albumin/Globulin Ratio 0.7 L 10/06/17 1325: CBC w Diff MAN DIFF ORDERED, RBC 4.52, MCV 75.7 L, MCH 23.3 L, MCHC 30.7 L, RDW 24.4 H, MPV 8.4, Gran % 84.0 H, Lymphocytes % 6.3 L, Monocytes % 9.5 H, Eosinophils % 0.1, Basophils % 0.1, Absolute Granulocytes 14.7 H, Absolute Lymphocytes 1.1 L, Absolute Monocytes 1.7 H, Absolute Eosinophils 0, Absolute Basophils 0, Platelet Estimate DECREASED, Hypochromic-Microcytic 1+, Poikilocytosis 2+, Anisocytosis 1+, Microcytic Cells 1+ Old records reviewed patient medicated morphine 4 mg IV Tylenol 1 g IV labs chest x-ray ordered case discussed with Dr. Carty agrees with plan Repeat evaluation patient's pain improved with morphine. I discussed with her family all her lab results, x-ray and CAT scan findings. Patient sugar 22 amp of dextrose D10 ordered case discussed with Dr. Carty agrees with plan Repeat blood sugar 75 after amp of dextrose D 10 running Call placed to pts saw straightener Case discussed with Dr. BERRY WILL ADMIT (Eliud Bee) (Machelle ALBARADO,Shan Almodovar) Departure Departure Time of Disposition: 1630 Disposition: STILL A PATIENT Condition: Stable Clinical Impression Primary Impression: Intractable pain Secondary Impressions: Metastatic disease Referrals: Yamilet Mobley APRN (PCP/Family) Departure Forms: Customer Survey General Discharge Information Admission Note Spoke With: Johanna Berry MD Documentation of Exam: Documentation of any treatments & extenuating circumstances including Concerns Regarding Discharge (functional status, medication knowledge or non-compliance, living conditions, etc.) that warrant an admission rather than observation: PAIN MANAGEMENT, IV PAIN CONTROL, LSELEY CONSULT, ONC CONSULT, POSSIBLE HOSPICE CONSULT (Eliud Bee) PA/MANGLE ROLLER Co-Sign Statement Statement: ED Attending supervision documentation- [X] I saw and evaluated the patient. I have also reviewed all the pertinent lab results and diagnostic results. I agree with the findings and the plan of care as documented in the PA's/MANGLE ROLLER's documentation. Patient presents for evaluation of severe pain related to her diagnosis of cancer. Patient was to begin radiation therapy today but was in far too much pain. Physical examination reveals a moderately uncomfortable-appearing patient groaning at times. [] I have reviewed the ED Record and agree with the PA's/MANGLE ROLLER's documentation. [] Additions or exceptions (if any) to the PAs/MANGLE ROLLER's note and plan are summarized below: [] (Machelle ALBARADO,Shan Almodovar) Critical Care Note Critical Care Note Critical Care Time: non-applicable (Debora RACHEL,Eliud)
[2017-10-06] MEDS ORDERED: LISINOPRIL20 M1 PO (12:59)
[2017-10-06 13:35] LABS: ABSOLUTE BASOPHIL COUNT 0 /CUMM (0.0-0.2); ABSOLUTE EOSINOPHIL COUNT 0 /CUMM (0.0-0.7); ABSOLUTE GRANULOCYTE CT 14.7 /CUMM (1.4-6.5); ABSOLUTE LYMPH COUNT 1.1 /CUMM (1.2-3.4); ABSOLUTE MONOCYTE COUNT 1.7 /CUMM (0.10-0.60); BASOPHIL % 0.1 % (0.0-2.0); EOSINOPHIL % 0.1 % (0-5); HEMATOCRIT 34.2 % (37-47); MEAN CORPUSCULAR HGB 23.3 PG (27.0-31.0); MEAN CORPUSCULAR HGB CONC 30.7 G/DL (33.0-37.0); MEAN CORPUSCULAR VOLUME 75.7 FL (81.0-99.0); MEAN PLATELET VOLUME 8.4 FL (7.4-10.4); PLATELET COUNT 88 /CUMM (130-400); RBC DISTRIBUTION WIDTH 24.4 % (11.5-14.5); RED BLOOD CELL CT 4.52 /CUMM (4.20-5.40); WHITE BLOOD CELL COUNT 17.5 /CUMM (4.8-10.8)
[2017-10-06] MEDS ORDERED: HUMALOG KW100 UNIT/1 SC (14:25)
[2017-10-06] MEDS ORDERED: DAILY MULTIPLE1 EACH PO (14:27)
[2017-10-06] MEDS ORDERED: CALCIUM 600 +1 EA11 PO (14:27)
[2017-10-06] MEDS ORDERED: FERROUS SULFAT325 M3 PO (14:28)
--- NOTE | 2017-10-06 14:45 | CT SCAN REPORT ---
EXAMINATION: CT HEAD WITHOUT CONTRAST CLINICAL INFORMATION: Altered mental status. History of colon and lung carcinoma. COMPARISON: No relevant prior imaging. TECHNIQUE: Contiguous axial imaging was performed from the skull base to vertex without intravenous administration of contrast. DLP: 594.97 mGy-cm FINDINGS: There is no acute intracranial hemorrhage or abnormal extra-axial collection. No intracranial mass effect or midline shift. Lateral and third ventricles are proportionate to the subarachnoid spaces. No hydrocephalus. Scattered nonspecific foci of hypoattenuation are visualized within the periventricular white matter that most likely represent a chronic manifestation of small vessel ischemia. Frias-white matter differentiation is grossly preserved and there is no evidence of acute territorial infarct. The calvarium and skull base are intact. Mastoid air cells and middle ear cavities are well aerated. Visualized paranasal sinuses are well-aerated. IMPRESSION: Scattered chronic small vessel ischemic changes within the periventricular white matter. Otherwise unremarkable examination. No evidence of acute territorial infarct or hemorrhage.
--- NOTE | 2017-10-06 15:00 | RADIOLOGY REPORT ---
EXAMINATION: XR PORTABLE CHEST CLINICAL INFORMATION: Cough and altered mental status with history of metastatic cancer to the lungs. COMPARISON: Chest x-ray 09/30/2017. TECHNIQUE: Portable frontal view of the chest was obtained. FINDINGS: Low lung volumes. Similar pattern nodules throughout the lungs in keeping with the history of metastatic disease. No focal consolidation, pleural effusion, or pneumothorax. Stable central vascular congestion without overt edema. Cardiac silhouette and osseous structures are stable. IMPRESSION: Stable pattern nodules throughout the right and left lung compatible with a history of pulmonary metastatic disease. No superimposed acute process. Low lung volumes.
--- NOTE | 2017-10-06 17:10 | History & Physical ---
Roddy Sunshine MD 10/06/17 1226: General Information and HPI History of Present Illness: Ms. 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 Beauchamp with colostomy bag, diabetes mellitus, hypertension, hypothyroidism, coronary artery disease status post stents, and obesity who presents with intractable pain secondary to malignancy. The patient is somnolent in the history was obtained from the daughter, who is her POA. The patient has been drowsy recently and not eating well. Today, she had an appointment for palliative radiation. However when she got [facility], she had incredible pain in her rectum. Rapid response was called and she was sent to the emergency room for further evaluation. The daughter also notes that she has had low sugars recently, thrush in her mouth, and has not walked in 3 weeks. She denies any fevers, nausea, vomiting, or blood in her back. She is a former smoker and does not use alcohol or recreational drugs. Allergies/Medications Allergies: Coded Allergies: shellfish derived (Intermediate, G.I. DISTRESS FROM [place]ALLOPS 09/14/17) Home Med list Atorvastatin Calcium 40 MG TABLET 1 TAB PO DAILY CHOLESTROL (Reported) Calcium Carbonate/Vitamin D3 (Calcium 600 + Vit D 400 Tablet) 600 MG-400 TABLET 1 TAB PO BID VITAMIN SUPPORT (Reported) Empagliflozin (Jardiance) 10 MG TABLET 1 TAB PO Q48 DM (Reported) Ferrous Sulfate 325 MG (65 MG IRON) TABLET 1 TAB PO BID IRON, VITAMIN ( Reported) Furosemide (Lasix) 20 MG TABLET 1 TAB PO DAILY HTN Glimepiride 4 MG TABLET 1 TAB PO DAILY DM (Reported) Insulin Lispro (Humalog Kwikpen U-100) (Unknown Strength) INSULN.PEN (Unknown Dose) SC SEE SLIDING SCALE DIABETES (Reported) Levothyroxine Sodium 25 MCG TABLET 1 TAB PO DAILY THYROID (Reported) Lisinopril 20 MG TABLET 1 TAB PO DAILY HEART (Reported) Metoprolol Tartrate 25 MG TABLET 1 TAB PO BID HTN Multivitamin (Daily Multiple Vitamin) 1 EACH TABLET 1 TAB PO DAILY VITAMIN SUPPORT (Reported) Oxycodone HCl/Acetaminophen (Percocet 5-325 MG Tablet) 5 MG-325 MG TABLET 1-2 TAB PO Q4-6 PRN PAIN Quinapril HCl 20 MG TABLET 1 TAB PO DAILY HTN (Reported) Sitagliptin Phos/Metformin HCl (Janumet 50-1,000 MG Tablet) 50 MG-1,000 MG TABLET 1 TAB PO BID DM (Reported) Past History Medical History EENT: NONE Cardiovascular: CAD (s/p stents), hypertension, hyperlipidemia, HEART MURMUR Respiratory: NONE Gastrointestinal: COLORECTAL CANCER Hepatic: CHRIS TO LIVE/LUNGS Renal: nephrolithiasis Musculoskeletal: NONE Psychiatric: NONE Endocrine: diabetes, hypothyroidism, obesity Blood Disorders: NONE Cancer(s): colon/rectal cancer 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 self Services at Home: None Primary Language: Ethiopian Functional Ability ADLs Independent: dressing, eating, toileting, bathing. Ambulation: independent IADLs Independent: shopping, housework, finances, telephone, medication admin. Review of Systems Review of Systems Constitutional: Reports: no symptoms. EENTM: Reports: no symptoms. Cardiovascular: Reports: no symptoms. Respiratory: Reports: no symptoms. GI: Reports: see HPI. Genitourinary: Reports: no symptoms. Musculoskeletal: Reports: no symptoms. Skin: Reports: no symptoms. Neurological/Psychological: Reports: no symptoms. Hematologic/Endocrine: Reports: no symptoms. Immunologic/Allergic: Reports: no symptoms. All Other Systems: Reviewed and Negative Exam & Diagnostic Data Last 24 Hrs of Vital Signs/I&O Vital Signs Date Time Temp Pulse Resp B/P B/P Pulse O2 O2 Flow FiO2 Mean Ox Delivery Rate 10/06 1624 98.1 81 24 122/58 98 Nasal 3.0L Cannula 10/06 1441 98.0 78 16 115/54 97 Nasal 3.0L Cannula 10/06 1257 Room Air 10/06 1241 98.3 84 22 109/53 100 Room Air Intake & Output 10/06 1600 10/06 0800 10/06 0000 Intake Total Output Total Balance Patient 93.894 kg Weight Weight Reported by Patient Measurement Method Physical Exam General Appearance Cooperative, Mild Distress, moaning in pain HEENT Atraumatic Cardiovascular Regular Rate, Normal S1, Normal S2 Lungs Clear to Auscultation Abdomen bag tense with air, abd tender Extremities 3+ pitting edema bilaterally Last 24 Hrs of Labs/Tha: Laboratory Tests 10/06/17 1358: Anion Gap 6, Estimated GFR > 60, BUN/Creatinine Ratio 31.4 H, Glucose 22 *L, Calcium 7.5 L, Total Bilirubin 0.8, AST 501 H, ALT 92 H, Alkaline Phosphatase 2012 H, Troponin I 0.03, Total Protein 4.6 L, Albumin 1.9 L, Globulin 2.7, Albumin/Globulin Ratio 0.7 L 10/06/17 1325: CBC w Diff MAN DIFF ORDERED, RBC 4.52, MCV 75.7 L, MCH 23.3 L, MCHC 30.7 L, RDW 24.4 H, MPV 8.4, Gran % 84.0 H, Lymphocytes % 6.3 L, Monocytes % 9.5 H, Eosinophils % 0.1, Basophils % 0.1, Absolute Granulocytes 14.7 H, Absolute Lymphocytes 1.1 L, Absolute Monocytes 1.7 H, Absolute Eosinophils 0, Absolute Basophils 0, Platelet Estimate DECREASED, Hypochromic-Microcytic 1+, Poikilocytosis 2+, Anisocytosis 1+, Microcytic Cells 1+ Assessment/Plan Assessment: Ms. 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 Beauchamp with colostomy bag, diabetes mellitus, hypertension, hypothyroidism, coronary artery disease status post stents, and obesity who presents with intractable pain secondary to malignancy. On presentation, vital signs were T 98.3, HR 84, RR 22, BP 109/53, saturating 100% on room air. Laboratories worsening and for white blood cell count 17.5, hemoglobin 10.5, platelets 68, MCV 75.7, sodium 132, chloride 97, BUN 22, glucose 22, calcium 7.5, albumin 1.9, AST 501, ALT 92, alkaline phosphatase 2012. Chest x-ray showed stable pattern nodule start the right and left lung compatible with history of pulmonary metastatic disease with no superimposed acute process. Head CT showed scattered chronic small vessel ischemic changes within the periventricular white matter with no evidence of acute infarct or hemorrhage. She will be admitted to general medicine and treated for the following problems: 1. Intractable pain secondary to malignancy 2. Normocytic anemia 3. Thrombocytopenia 4. Hyponatremia 5. Hypoglycemia #Intractable pain secondary to malignancy: Patient has history of metastatic cancer that is causing significant pain. She likely has bone involvement given her history and elevated alkaline phosphatase. She received a lot of opioid pain medication is now drowsy. -Pain control with ketorolac as necessary -Oncology consult -GGT -MRI lumbar spine -Try to avoid opioids while sedated #Hypoglycemia: Likely secondary to medications. We will hold her anti- hyperglycemics and put her on a sliding scale. -Hold by mouth diabetes meds -D5NS IVF #Hyponatremia: Likely hypovolemic hyponatremia. We will give her IV fluid hydration -IV fluids -Monitor sodium #Anemia/thrombocytopenia: Likely secondary to chronic disease. -Continue to monitor #Chronic medical problems: -Continue other home medications DVT prophylaxis with enoxaparin NPO Full code As Ranked By This Provider Problem List: 1. Metastatic disease Core Measures/Misc (03/13) Acute Coronary Syndrome ACS Diagnosis: No Congestive Heart Failure Congestive Heart Failure Diagnosis No Cerebrovascular Accident CVA/TIA Diagnosis: No VTE (View Protocol) VTE Risk Factors Age>40 No Mechanical VTE Prophylaxis d/t N/A MechProphylax Ordered No VTE Pharm Prophylaxis d/t NA PharmProphylax ordered Sepsis (View protocol) Sepsis Present: No Johanna Berry MD 10/06/17 1810: Attending MD Review Statement Attending Statement Attending MD Statement: examined this patient, discuss w/resident/PA/WATER TREATMENT TECHNICIAN, agreed w/resident/PA/WATER TREATMENT TECHNICIAN, discussed with family, reviewed EMR data (avail), discussed with nursing, amended to note Attending Assessment/Plan: Patient seen and examined. History obtained from her aleksander daughter who was present at the bedside. She is a 76-year-old female with medical history significant for coronary artery disease status post stent placement 2, diabetes mellitus, obesity, hypertension, hypothyroidism and renal stones. She also has significant family history of colon cancer. Apparently she first presented to the hospital late last month with a one-year history of 30 pound unintentional weight loss. Workup with included a colonoscopy during that admission revealed a necrotic partially obstructing rectal mass. Biopsy showed poorly differentiated carcinoma. She was discharged and returned 2 days later for scheduled divesting colostomy to prevent rectal obstruction. The mass was left intact. The hospital stay was complicated by a fall for which she was monitored on telemetry unit following this. No significant cardiac events were noted. She was discharged home to follow-up with the radiology service as well as radiology oncology service. Patient was brought to radiation oncology service today for her first radiation treatment. Daughter reports that at the assisted facility where she was discharged to patient has been complaining of worsening low back pain. She reports that the right to the radiation oncologist intensity was unbearable. She could not be positioned in the machine for treatment today and eventually a rapid response was called and patient was transferred to the emergency room for management of her pain. Emergency room staff reports that patient was in significant pain when she arrived. She got a total of 10 mg of morphine as well as intravenous Tylenol and intravenous Toradol before pain to be controlled. She was subsequently referred to the medical service for evaluation. In addition she was reported to be hypoglycemic in the emergency room with blood glucose levels in the 20s. Daughter reports that she had similar hypoglycemia at the skilled nursing earlier during the week with blood glucose levels in the 40s. Blood glucose did improve with treatment in the emergency room today. By the time I evaluated the patient emergency room I found her extremely somnolent. She was graoning. She did respond when questioned morning barely audible voice. She did clearly deny having any significant pain. She however could not express why she was groaning. Daughter was present at bedside and indeed agree that patient acknowledged not having any significant pain at the time of evaluation. Her pupils are equal and reactive. She had no jugular venous distention. Heart sounds are regular. Lungs are clear to auscultation bilaterally. Abdomen was distended. Daughter admits that her abdomen is more distended than baseline. She has a diverting colostomy present with some stool and lots of flatus. She has 1+ bilateral pedal edema. She moves all extremities spontaneously and to command although very weakly. Problems: 1. Intractable back pain. 2. Newly diagnosed rectal cancer with diffuse metastasis to the liver 3. Coronary artery disease. 4. Hypoglycemia. 5. Diabetes mellitus. 6. Encephalopathy; likely combination of medication induced and metabolic from her hypoglycemia 7. Leukocytosis Plan: -Admit to inpatient General medical service. -Would recommend pain control with IV Toradol. Would limit use of acetaminophen due to her liver derangement. Would also limit use of opioids due to her current encephalopathy. -Most pain is better controlled would recommend MRI imaging of the lumbar spine to rule out metastatic disease that may be causing her pain. -Hold all her oral hypoglycemic medications. Keep patient n.p.o. for now. Hydrate with D5 half-normal saline at 100 cc an hour. Her hypoglycemia is likely secondary to poor oral intake particularly in the setting of continued use of her oral hypoglycemic medications. -Daughter is in agreement with having a palliative consultation while she is here in the hospital. -DVT prophylaxis with subcutaneous heparin. -Her leukocytosis is chronic and may be due to marrow infiltration. Please discuss further with the oncology service. Bernardino Chambers 10/06/17 2017: Resident Review Statement Resident Statement: examined this patient, discussed with campus recruiting intern, agreed with campus recruiting intern, discussed with family, discussed with nursing, discussed with case mgmt, reviewed images, amended to note Other Findings: 76-year-old woman with history of coronary artery disease, diabetes mellitus, obesity, hypertension, strong history of colon cancer, with recent diagnosis of poorly differentiated rectal carcinoma requiring colostomy presented to ED from radiation oncology department for intractable pain, drowsiness and deconditioning. Patient did receive opiates while in the ED, and during the exam patient was arousable, responsive but somnolent. She did have glucose of 40s yesterday while at the skilled nursing and glucose of 22 in the ED today. She was receiving her multiple oral hypoglycemics, despite poor appetite while at the nursing facility. We will start pain control with IV Toradol. Given severe transaminitis, no Tylenol. Will hold on oral hypoglycemics. Accu-Cheks every 6 hours. D5 normal saline overnight. Keep nothing by mouth. Hold opioids. MRI in a.m. Palliative consult. Oncology consult. Full code. Lovenox for DVT prophylaxis.
--- NOTE | 2017-10-06 18:11 | Admission Certification ---
Admission Certification Certification Statement - As attending physician, I certify that at the time of - admission, based on clinical presentation, severity of - symptoms, need for further diagnostic testing and - therapeutic interventions, and risk of adverse outcomes - without in-hospital treatment, in my clinical assessment, - this patient requires an acute hospital stay for a minimum - of two nights or longer. I have also considered psychsocial - factors such as support system, advanced age, financial - issues, cognitive issues, and failed out-patient treatments, - past re-admission history, safety of patient, and lack of - compliance as applicable. Specific rationale supporting this admission is: Patient requires hospitalization for optimization of pain control and further evaluation of her back pain which may be secondary to metastatic disease.
[2017-10-06 21:16] VITALS: BP 86/50
[2017-10-06 23:00] VITALS: BP 96/50
--- NOTE | 2017-10-06 23:20 | Event Note ---
Event Note Event Note: S: Medical staff informed for clarification for IVF fluids at 10 pm. Patient's current FSG 81, BP 86/50, HR 71. On admission her glucose was 22, BP 109/53, HR 84, no fever, rr 15. Of note she was given 10 mg of morphine in the ED due to intractable pain. B: Ms. 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 Paulino with colostomy bag, diabetes mellitus, hypertension, hypothyroidism, coronary artery disease status post stents, and obesity who presents with intractable pain secondary to malignancy. A/R: upon arrival patient was drowsy but oriented 2 and moaning.pinpoint pupils. Blood glucose level at that point was 81, despite being on 125 mL per hour 10% dextrose.Nighttime Attending and resident also evaluated the patient and it was decided that patient should be transferred to ICU for closer monitoring of blood glucose levels and vital signs. Upon arrival in ICU patient blood sugar dropped to 50 and an additional dose of 50% glucose was pushed. Blood pressure rechecdk showed to 96/60. After discussion with endocrinology he continued 10% IV dextrose 125 per hour and we added Glucagon to the medication regimen. Per endocrinology insulin level,tsh, cortisol was also ordered. A combination of CBC, ICU Bundle, ammonia, lactate acid, was ordered and patient was signed off to the ICU team for further management of the conditions and also discussing of lab results with endocrinology.ICU attending was also informed.
[2017-10-06 23:33] LABS: ABSOLUTE BASOPHIL COUNT 0 /CUMM (0.0-0.2); ABSOLUTE EOSINOPHIL COUNT 0 /CUMM (0.0-0.7); ABSOLUTE GRANULOCYTE CT 12.6 /CUMM (1.4-6.5); ABSOLUTE LYMPH COUNT 1.6 /CUMM (1.2-3.4); ABSOLUTE MONOCYTE COUNT 0.5 /CUMM (0.10-0.60); BASOPHIL % 0.1 % (0.0-2.0); EOSINOPHIL % 0.1 % (0-5); GRANULOCYTE % 85.5 % (42.2-75.2); MEAN CORPUSCULAR HGB 23.8 PG (27.0-31.0); MEAN CORPUSCULAR HGB CONC 31.3 G/DL (33.0-37.0); MEAN CORPUSCULAR VOLUME 75.9 FL (81.0-99.0); MEAN PLATELET VOLUME 8.8 FL (7.4-10.4); PLATELET COUNT 61 /CUMM (130-400); RBC DISTRIBUTION WIDTH 23.6 % (11.5-14.5); RED BLOOD CELL CT 3.46 /CUMM (4.20-5.40); WHITE BLOOD CELL COUNT 14.7 /CUMM (4.8-10.8)
[2017-10-06 23:39] LABS: HEMATOCRIT 26.3 % (37-47)
[2017-10-06 23:40] LABS: PTT 41 SEC (25-37)
--- NOTE | 2017-10-07 02:10 | CT SCAN REPORT ---
EXAMINATION: CT CHEST WITHOUT CONTRAST CT ABDOMEN AND PELVIS WITHOUT CONTRAST CLINICAL INFORMATION: Dropping blood pressure. Dropping H\T\H. Low glucose. Altered mental status. Vague abdominal pain. COMPARISON: 09/14/2017. TECHNIQUE: Multidetector volumetric imaging was performed through the chest, abdomen and pelvis without contrast. Sagittal and coronal reformatted images were obtained on the technologist's workstation. Axial MIP volume rendering provided. DLP: 1205 mGy-cm. FINDINGS: CHEST: Lungs: The central airways are patent. Innumerable pulmonary nodules are again seen throughout the bilateral lungs. There is no significant change in the short interval. No pleural effusion or pneumothorax. No new consolidation. Mediastinum: The heart is normal in size. Trace pericardial effusion. Coronary artery calcifications present. The thyroid gland is unremarkable. No mediastinal lymphadenopathy. Mild esophageal wall thickening diffusely. Chest Wall/Axilla: No lymphadenopathy. No chest wall mass. ABDOMEN/PELVIS: Liver, Gallbladder, Biliary Tree: The liver is enlarged. Diffuse heterogeneous hypoattenuating lesions are seen throughout the hepatic parenchyma, with increased size of lesions since the prior study. Increase in trace perihepatic ascites. Cholelithiasis. No gallbladder wall thickening. Pancreas: Unremarkable. Spleen: Unremarkable. Adrenal Glands: Unremarkable. Kidneys and Ureters: The kidneys are normal in size, shape, and attenuation. No hydronephrosis or hydroureter. Left lower pole renal calculus is again noted. This measures 0.5 cm, 14 cm from the posterior axillary line. Bladder: Partially distended without wall thickening. Small amount of gas within the bladder lumen likely associated with recent catheterization. Gastrointestinal Tract: The stomach is decompressed with no gross abnormality. The small bowel is normal in caliber without obstruction. There is a normal appendix. There is a left lower quadrant loop colostomy. There is an external drain adjacent to the colostomy. Redemonstration of the rectal mass. Diffuse heterogeneity of the rectal wall. Small volume ascites extends into the pelvis. Abdominal Wall: Diffuse anasarca. Left lower quadrant ostomy. Lymphovascular Structures: Lymph nodes: Multiple prominent lymph nodes are seen in the perirectal fat, similar to prior. For instance, there is an anterior perirectal node which measures 1.5 cm in short axis. Vascular: Normal caliber aorta with mild atherosclerotic calcifications. Pelvic Viscera: The uterus and adnexa are unremarkable. OSSEOUS STRUCTURES: No suspicious sclerotic or lytic bone lesions are identified. Degenerative changes are present throughout the spine. IMPRESSION: 1. Redemonstration of the rectal mass. Prominent adjacent perirectal lymph nodes are again noted as well. 2. No significant change in the appearance of bilateral pulmonary nodules consistent with metastatic disease. 3. Increased prominence of diffuse hepatic masses consistent with metastatic disease. Increase in small volume ascites. 4. No new consolidation in the lungs. No evidence of pulmonary edema. 5. There is no free air in the abdomen to suggest perforation.
[2017-10-07 05:01] LABS: ABSOLUTE BASOPHIL COUNT 0 /CUMM (0.0-0.2); ABSOLUTE EOSINOPHIL COUNT 0 /CUMM (0.0-0.7); ABSOLUTE GRANULOCYTE CT 12.8 /CUMM (1.4-6.5); ABSOLUTE LYMPH COUNT 1.8 /CUMM (1.2-3.4); BASOPHIL % 0.1 % (0.0-2.0); EOSINOPHIL % 0.3 % (0-5); GRANULOCYTE % 81.7 % (42.2-75.2); HEMATOCRIT 27.6 % (37-47); MEAN CORPUSCULAR HGB 24.3 PG (27.0-31.0); MEAN CORPUSCULAR HGB CONC 31.7 G/DL (33.0-37.0); MEAN CORPUSCULAR VOLUME 76.4 FL (81.0-99.0); MEAN PLATELET VOLUME 9.2 FL (7.4-10.4); PLATELET COUNT 58 /CUMM (130-400); RBC DISTRIBUTION WIDTH 24.2 % (11.5-14.5); RED BLOOD CELL CT 3.61 /CUMM (4.20-5.40); WHITE BLOOD CELL COUNT 15.6 /CUMM (4.8-10.8)
--- NOTE | 2017-10-07 06:26 | Event Note ---
Event Note Event Note: Situation: Talked to Dr Wilhelm about the patient's persistent blood sugar Brief: 76-year-old female with past medical history of stage IV rectal cancer was admitted for intractable pain. She was found to have low blood sugar on admission of 22. She was given a dextrose push and started on D10 in the ED and transferred to general medicine floor. Due to persistent low blood glucose levels despite running on D10, she was transferred to the ICU. She is suspected to have taken more than usual amount of her sulfonylurea. Her labs showed high insulin of 46.5. I talked to Dr Wilhelm on the phone, she recommended the patient to be given one dose of IV Octreotide 100mcg. That should help her blood sugars to come back and then the D10 can be cut back on. A/R: * Continue D10 until blood sugars are stable * Further management per ICU team and Endo.
--- NOTE | 2017-10-07 07:56 | Cons- CRCU ---
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 Montoya), type 2 diabetes, coronary artery disease status post stents, who was brought to the hospital when she was found to have intractable pain and hypoglycemia before she was being evaluated by radiation oncologist- Makayla Walden MD. She was brought to the emergency room with chief concerns of altered mentation, worsening back pain. Reported several episodes of patient, and hypoglycemia at [facility] in the last 1 week. At the time of admission, vitals were stable, but was noted to be somnolent on examination with no focal neurological deficits. He was admitted to general medicine floor for the management of intractable back pain. Laboratory evaluation revealed leukocytosis WBC 17.5, hemoglobin 10.5, MCV 75.7, platelet count 88K ( last known normal 424k on 09/25/2017 and 178K on 09/27/2017 at the time of last hospital admission for colostomy). She was also found to have glucose level of 22 mg/deciliter, with insulin level of 46.5. Reported to be on sulfonylureas-glimepiride 4 mg daily, and short-acting insulin. She was given dextrose pushes, and was started on D10 percent infusion with reasonable correction of hypoglycemia. Considering her hypoglycemic episodes, she was transferred to intensive care unit. In the last 24 hours, she had a few episodes of hypoglycemia for which he received glucagon 1 mg, and octreotide 100 mcg once.She was evaluated by the property valuer-Dr. donahue and hematology- oncologist Dr. Paulino this a.m. Reported erythema and oral thrush in the last 1 week, productive cough which is not associated with any fever/chills. Reported swelling of lower extremities, and pain in her left arm. No chest pain, shortness of breath. S she has been residing at the short-term rehabilitation facility, since the time of her last discharge from the hospital post surgery. T-max 97.0, pulse rate 72-84, normal sinus rhythm, respiration 12-16, blood pressure 90-129/diastolic 50-63, 2 L nasal cannula with oxygen saturation between 94-96%. Input 1296 mL, output was not measured due to incontinence Allergies/Medications Allergies: Coded Allergies: shellfish derived (Intermediate, G.I. DISTRESS FROM [place] 09/14/17) Home Med List: Atorvastatin Calcium 40 MG TABLET 1 TAB PO DAILY CHOLESTROL (Reported) Calcium Carbonate/Vitamin D3 (Calcium 600 + Vit D 400 Tablet) 600 MG-400 TABLET 1 TAB PO BID VITAMIN SUPPORT (Reported) Empagliflozin (Jardiance) 10 MG TABLET 1 TAB PO Q48 DM (Reported) Ferrous Sulfate 325 MG (65 MG IRON) TABLET 1 TAB PO BID IRON, VITAMIN ( Reported) Furosemide (Lasix) 20 MG TABLET 1 TAB PO DAILY HTN Glimepiride 4 MG TABLET 1 TAB PO DAILY DM (Reported) Insulin Lispro (Humalog Kwikpen U-100) (Unknown Strength) INSULN.PEN (Unknown Dose) SC SEE SLIDING SCALE DIABETES (Reported) Levothyroxine Sodium 25 MCG TABLET 1 TAB PO DAILY THYROID (Reported) Lisinopril 20 MG TABLET 1 TAB PO DAILY HEART (Reported) Metoprolol Tartrate 25 MG TABLET 1 TAB PO BID HTN Multivitamin (Daily Multiple Vitamin) 1 EACH TABLET 1 TAB PO DAILY VITAMIN SUPPORT (Reported) Oxycodone HCl/Acetaminophen (Percocet 5-325 MG Tablet) 5 MG-325 MG TABLET 1-2 TAB PO Q4-6 PRN PAIN Quinapril HCl 20 MG TABLET 1 TAB PO DAILY HTN (Reported) Sitagliptin Phos/Metformin HCl (Janumet 50-1,000 MG Tablet) 50 MG-1,000 MG TABLET 1 TAB PO BID DM (Reported) Current Medications: Current Medications Sig/Rose Start time Last Medication Dose Route Stop Time Status Admin Argatroban 250 MG Q24H 10/07 1345 AC Sodium Chloride 250 ML IV Dextrose 25 GM ONCE ONE 10/07 0830 DC IV 10/07 0831 Dextrose 25 GM ONCE ONE 10/06 2300 DC 10/06 IV 10/06 2301 2300 Dextrose 25 GM ONCE ONE 10/06 1500 DC 10/06 IV 10/06 1501 1459 Dextrose/Sodium 1,000 ML .Q10H 10/06 1845 DC Chloride IV 10/07 1444 Dextrose/Water 1,000 ML .Q10H 10/07 0615 AC 04 IV 10/07 1614 0614 Dextrose/Water 1,000 ML .Q6H40M 10/06 2200 DC 10/06 IV 10/07 0439 2341 Dextrose/Water 1,000 ML .Q6H40M 10/06 1500 DC 10/06 IV 1544 Glucagon 1 MG ONCE ONE 10/06 2330 DC 04 SC 10/06 2331 2341 Heparin Sodium 5,000 UNIT Q8 10/06 2200 DC 10/07 (Porcine) SC 0609 Ketorolac 30 MG Q6 PRN 10/07 0010 DC Tromethamine IV Ketorolac 30 MG Q6 10/06 2359 DC 10/06 Tromethamine IV 10/07 0010 2348 Ketorolac 0 .STK-MED ONE 10/06 1648 DC Tromethamine .ROUTE Ketorolac 30 MG ONCE ONE 10/06 1630 DC 10/06 Tromethamine IV 10/06 1631 1630 Magnesium Sulfate 1 GM Q2H 10/07 0045 DC 10/07 Dextrose/Water 100 ML IV 10/07 0444 0259 Morphine Sulfate 2 MG ONCE ONE 10/07 1315 DC 10/07 IV 10/07 1316 1321 Morphine Sulfate 0 .STK-MED ONE 10/06 1649 DC .ROUTE Morphine Sulfate 2 MG ONCE ONE 10/06 1630 DC 10/06 IV 10/06 1631 1630 Morphine Sulfate 4 MG ONCE ONE 10/06 1600 DC 10/06 IV 10/06 1601 1640 Morphine Sulfate 0 .STK-MED ONE 10/06 1553 DC .ROUTE Non-Formulary 0 SEE ADMIN CRITERIA 10/07 1330 CAN Medication ANY Octreotide Acetate 100 MCG ONCE ONE 10/07 0215 DC 10/07 IV 10/07 0216 0357 Ondansetron HCl 4 MG Q8P PRN 10/06 1845 AC IV Oxycodone HCl 5 MG Q6P PRN 10/07 1230 AC PO Potassium Chloride 10 MEQ Q1H 10/07 0545 DC 10/07 IV 10/07 0646 0958 Sodium Chloride 1,000 ML Q13H 10/07 0100 AC 10/07 IV 0059 Sodium Chloride 1,000 ML BOLUS ONE 10/06 2200 DC IV 10/06 2259 Review of Systems Review of Systems Constitutional: Reports: see HPI, malaise, weakness. Denies: fever. EENTM: Denies: blurred vision, double vision. Cardiovascular: Reports: edema. Respiratory: Reports: sputum production. Denies: short of breath. GI: Denies: abdominal pain. Genitourinary: Reports: dysuria. Past History Travel History Traveled to [place] past 21 day No Medical History Neurological: NONE EENT: NONE Cardiovascular: CAD (s/p stents), hypertension, hyperlipidemia, HEART MURMUR Respiratory: NONE Gastrointestinal: COLORECTAL CANCER Hepatic: CHRIS TO LIVE/LUNGS Renal: nephrolithiasis Musculoskeletal: NONE Psychiatric: NONE Endocrine: diabetes, hypothyroidism, obesity Blood Disorders: NONE Cancer(s): colon/rectal cancer INDEX EDITOR/Reproductive: NONE Surgical History Surgical History: non-contributory Family History Relations & Conditions If Any: FATHER FH: heart disease MOTHER FH: cancer of digestive organ BROTHER FH: heart attack SISTER FHx: lung cancer BROTHER Psychosocial History Where Do You Live? [facility] Facility Who Do You Live With? self Primary Language: Swiss Smoking Status: Former Smoker ETOH Use: denies use Functional Ability ADLs Independent: dressing, eating, toileting, bathing. Ambulation: independent IADLs Independent: shopping, housework, finances, telephone, medication admin. Exam & Diagnostic Data Last 24 Hrs of Vital Signs/I&O Vital Signs Date Time Temp Pulse Resp B/P B/P Pulse O2 O2 Flow FiO2 Mean Ox Delivery Rate 10/07 0400 99 Nasal 2.0L Cannula 10/07 0000 99 Nasal 2.0L Cannula 10/06 2300 97.0 67 14 96/50 99 Nasal 2.0L Cannula 10/07 2115 95.8 71 19 86/50 96 Nasal Cannula 10/06 2113 Nasal 2.0L Cannula 10/07 2023 97.5 72 16 100/49 95 Nasal 3.0L Cannula 10/06 1624 98.1 81 24 122/58 98 Nasal 3.0L Cannula 10/06 1441 98.0 78 16 115/54 97 Nasal 3.0L Cannula 10/06 1257 Room Air 10/06 1241 98.3 84 22 109/53 100 Room Air Intake & Output 10/07 0800 10/07 0000 10/06 1600 Intake Total 1296 500 Output Total Balance 1296 500 Intake, IV 1296 500 Number 1 Bowel Movements Patient 211 lb 202 lb 207 lb Weight Weight Bed scale Bed scale Reported by Patient Measurement Method Physical Exam General Appearance: mild distress Head: atraumatic Eyes: Bilateral: PERRL, EOMI, pale conjunctivae. Ears, Nose, Throat: normal pharynx Neck: normal inspection, supple Respiratory: normal breath sounds Cardiovascular: regular rate/rhythm Peripheral Pulses: 2+ radial (R), 2+ radial (L) Gastrointestinal: normal bowel sounds, soft, colostomy bag in place Rectal: heme positive stool Back: normal inspection Extremities: pedal edema Neurologic/Psych: awake Cranial Nerves: normal hearing, normal speech, PERRL Reflexes: 2+: knee (R), knee (L). Last 48 Hrs of Labs/Tha: Laboratory Tests 10/07/17 0426: Anion Gap 6, Estimated GFR > 60, BUN/Creatinine Ratio 30.0 H, CBC w Diff NO MAN DIFF REQ, RBC 3.61 L, MCV 76.4 L, MCH 24.3 L, MCHC 31.7 L, RDW 24.2 H, MPV 9.2, Gran % 81.7 H, Lymphocytes % 11.3 L, Monocytes % 6.6, Eosinophils % 0.3, Basophils % 0.1, Absolute Granulocytes 12.8 H, Absolute Lymphocytes 1.8, Absolute Monocytes 1.0 H, Absolute Eosinophils 0, Absolute Basophils 0 10/06/17 2317: Ammonia 41 H, Fibrinogen Activity 367 10/06/172316: Anion Gap 6, Estimated GFR > 60, Glucose 111 H, Insulin Level 46.5 H, Lactic Acid 1.7, Calcium 7.2 L, Phosphorus 3.6, Magnesium 1.5 L, Total Bilirubin 0.7, AST 400 H, ALT 81 H, Albumin 1.6 L, Cortisol PM Sample 24.3 H, PT 17.0 H, INR 1.55 H, APTT 41 H, CBC w Diff NO MAN DIFF REQ, RBC 3.46 L, MCV 75.9 L, MCH 23.8 L, MCHC 31.3 L, RDW 23.6 H, MPV 8.8, Gran % 85.5 H, Lymphocytes % 11.0 L, Monocytes % 3.3, Eosinophils % 0.1, Basophils % 0.1, Absolute Granulocytes 12.6 H, Absolute Lymphocytes 1.6, Absolute Monocytes 0.5, Absolute Eosinophils 0, Absolute Basophils 0 04/12/18 1358: Anion Gap 6, Estimated GFR > 60, BUN/Creatinine Ratio 31.4 H, Glucose 22 *L, Calcium 7.5 L, Total Bilirubin 0.8, GGT 2724 H, AST 501 H, ALT 92 H, Alkaline Phosphatase 2012 H, Troponin I 0.03, Total Protein 4.6 L, Albumin 1.9 L, Globulin 2.7, Albumin/Globulin Ratio 0.7 L 10/06/17 1325: CBC w Diff MAN DIFF ORDERED, RBC 4.52, MCV 75.7 L, MCH 23.3 L, MCHC 30.7 L, RDW 24.4 H, MPV 8.4, Gran % 84.0 H, Lymphocytes % 6.3 L, Monocytes % 9.5 H, Eosinophils % 0.1, Basophils % 0.1, Absolute Granulocytes 14.7 H, Absolute Lymphocytes 1.1 L, Absolute Monocytes 1.7 H, Absolute Eosinophils 0, Absolute Basophils 0, Platelet Estimate DECREASED, Hypochromic-Microcytic 1+, Poikilocytosis 2+, Anisocytosis 1+, Microcytic Cells 1+ Assessment/Plan CRCU Impression/Plan: - Ms Russo is a 76-year-old woman with PMHx of 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 Montoya), coronary artery disease status post stents, type 2 diabetes who was brought to the hospital after she was found to have severe back pain and altered mental status and found to be have severe back pain and altered mental status and found to have had hypoglycemia upto 22 mg/dl at the time of presentation which could have resulted in altered mentation. At the time of admission vitals 98.3, pulse rate 84, respiration 22, blood pressure 109/53, 100% on room air. Pertinent Findings in the last 24 hours: WBC 17.5 (10/06)-->15.6(10/07) Hemoglobin 10.5--8.8 MCV 75.7 Platelet 424 (09/25)-->178 (09/27)--> 115 (09/28)-->80 09/29)-->88 (10/06)-->58 (10/07) Sodium 132-->132 ( chronic ) Potassium 3.9(4/12)-->3.3 BUN 22, creatinine 0.7 Glucose 22 (4/12) Insulin level 46.5(4/12) Lactic acid 1.7 Calcium 7.5 (4/12) corrected calcium 9.52. INR 1.55, PTT 41, fibrinogen activity 367. Chest x-ray: Stable pattern nodules throughout the right and left lung compatible with a history of pulmonary metastatic disease. No superimposed acute process. Low lung volumes. Head CT: Scattered chronic small vessel ischemic changes within the periventricular white matter. Otherwise unremarkable examination. No evidence of acute territorial infarct or hemorrhage. CT chest, abdomen pelvis without IV contrast- 1. Redemonstration of the rectal mass. Prominent adjacent perirectal lymph nodes are again noted as well. 2. No significant change in the appearance of bilateral pulmonary nodules consistent with metastatic disease. 3. Increased prominence of diffuse hepatic masses consistent with metastatic disease. Increase in small volume ascites. 4. No new consolidation in the lungs. No evidence of pulmonary edema. 5. There is no free air in the abdomen to suggest perforation. Venous Doppler upper extremity:Occlusive venous thrombus involving the right basilic and right cephalic veins. Lumbar spine MRI With and without sowmya : - This is a limited motion degraded study. There is no evidence of spinal metastatic disease. No enhancing epidural masses. No acute fractures. - Mild to moderate spondylosis at the L3-L4, L4-L5, and L5-S1 levels. There is no severe central canal stenosis and there is no severe foraminal stenosis within the lumbar spine. Etiology for her acute change in mental status is likely due to hypoglycemia, likely secondary to sulfonylurea use or metastasis to liver. Since she does not have any significant renal dysfunction, and has been on sulfonylureas for a while, it seems unlikely that it could be due to sulfonylureas. Other oral hypoglycemics that she is currently on are not known to be a reason for hypoglycemia. The treatment for sulfonyl induced hypoglycemia ideally results within first 24-48 hours. Other etiologies such as neuroendocrine cells from GI tract metastasizing to liver, or decreased gluconeogenesis ability of liver are likely. Elevated insulin level, makes me think that intact beta cells are responsible for the secretion, and limited gluconeogenic reserve is possible given his liver mets. Given the history of cancer, would likely have higher glucose demand secondary to Warburg effect. In regards the pain, it could be due to metastasis to spine. Change in platelet count-thrombocytopenia that was noted at the time of admission, with normal platelet count prior to her hospital admission which was around 7-10 days ago, with more than 50% drop in platelets, and thrombosis makes us think that she might have developed heparin-induced thrombocytopenia, which should be investigated. Problem list: #1 hypoglycemia #2 back pain #3 hyponatremia-chronic #4 thrombocytopenia, rule out heparin-induced thrombocytopenia #5 right upper extremity venous thrombus #6 metabolic encephalopathy #7 anemia-iron deficiency anemia and anemia of chronic disease #8 metastatic rectal cancer with metastases to liver and lung #9 leukocytosis Plan: Respiratory: Continue supplemental oxygen to keep oxygen saturation above 92% Continue to monitor for any worsening respiratory status, given metastasis to the lungs. Empiric antibiotics, if she has any fever or worsening leukocytosis. Lower respiratory cultures. Infectious: Monitor leukocytosis, which could be reactive at this time. No antibiotics at this time are indicated. Check urinalysis, urine culture Circulatory: Continue to monitor vitals every hourly. Hold antihypertensives at this time. Hematology: Anemia workup, with iron, TIBC, ferritin. Guaiac positive stools, given history of rectal cancer and recent surgery. For thrombocytopenia, start argatroban after discussing risks versus benefits with the patient's family. Consider long-term anticoagulation, if the patient's family wishes. Follow-up heparin-induced thrombocytopenia panel. No heparin products at this time. Metabolic: Continue D10% at 100ml, which is approximately 1gm every hour, is equivalent to total glucose uptate of the skeletal muscle; and might need an extra dose of somatostatin if needed. Dose of octreotide if needed in the p.m. Check Accu-Cheks q. hourly. Titrate down glucose infusion as tolerated. Monitor renal function Start LT4 equivalent to her home dose intravenously. Alimentary: If she is not able to take anything p.o., would consider IV medications in her. History of rectal cancer, would need a discussion about goals of care Continue to monitor abnormal liver chemistries. Liver biopsy, if the patient's family would like to pursue further. No radiation or systemic chemotherapy at this time until she begins functionality. Neurology: Monitor for an acute altered mental changes. Seizure precautions. Use morphine 2 mg every 4 hourly, discussed with the family about side effects. Patient cannot take p.o. meds reliably. DVT prophylaxis: Subcutaneous heparin has been discontinued. Alps for now. Housekeeping ICU #1 Central line- none #2 Arterial line- none #3 Blake catheter- none ( incontinent ) #4 Rectal tube - none #5 NG tube - none #6 IV/peripheral line- yes. 10/07/17 #7 IV drips- Argatroban ? #8 Vent settings: none #9 pressors: none Problem List: 1. Thrombocytopenia 2. Metastatic disease 3. Colostomy in place 4. Rectal carcinoma Consult Acknowledgment - Thank you for your consult request. Fredrick Fajardo MD 10/07/17 1115: Assessment/Plan CRCU Other Findings/Comments: Fredrick East M.D. have examined this patient, reviewed available EMR data, personally reviewed images, discussed with resident/PA/FOOD STYLIST, discussed management plan with housestaff and nursing staff, discussed managment plan all of healthcare providers, discussed management plan with patient and/or family, agreed with resident/PA/FOOD STYLIST. The past history and parts of the chart have been autopopulated. Impression 76 year old woman * transferred to ICU for persistent hypoglycemia, this is likely secondary to metastatic disease to the liver from rectal ca * encephalopathy is either medication or unerlying malignancy Plan -f/u endocrinology, D10 gtt -family amenable to palliative care consultation -leukocytosi can be from marrow infiltration -f/u oncology -will discuss plan of care after palliative care input DVT prophylaxis at all times TTS 35 min Consult Acknowledgment - Thank you for your consult request.
[2017-10-07 08:00] VITALS: BP 94/52
--- NOTE | 2017-10-07 12:28 | ULTRASOUND REPORT ---
EXAMINATION: US TRIPLEX OF UPPER EXTREMITIES, BILATERAL CLINICAL INFORMATION: Bilateral upper extremity swelling. COMPARISON: None TECHNIQUE: Color-flow triplex imaging with spectral analysis and compression Doppler were performed on the upper extremities. FINDINGS: Occlusive thrombus is noted within the right basilic vein extending into the adjacent right brachial vein. The right cephalic vein is also occluded. The remainder of the right upper extremity venous tree including the axillary, subclavian, the innominate and the visualized part of the right internal jugular veins are widely patent. No evidence of any venous thrombosis is seen within the left upper extremity. IMPRESSION: Occlusive venous thrombus involving the right basilic and right cephalic veins. This critical result was discussed with Dr. Adkins at 12:07 PM on 10/07/2017 and it was ascertained that the content and urgency of the report was understood at the time of direct communication.
--- NOTE | 2017-10-07 12:38 | Event Note ---
Event Note Event Note: Was called by Dr. Dooley about an abnormal result that was found on imaging of the right, and left extremities for evaluation of VTE. As per the radiologist, he found a thrombus/occlusion in the basilic/cephalic vein. Plan was to start the patient on Argatroban while, heparin induced thrombocytopenia is being ruled out. Informed Dr. Melgar, and Dr. Fajardo. Since the patient has abnormal liver function, the dose of argatroban as per hospital approved protocol would be adjusted accordingly. Pharmacy has been informed. Discussed risks versus benefits of using Argatroban with the family, who are aware that there icatibant increases the possibility of bleeding. Given her abnormal liver chemistries, with child Morrison score B the dose was adjusted accordingly. Reached out to the family, who wanted to discuss the goals of care personally later during the day. Also discussed with Dr. Pedroza, who offered to be around , if the family intended. Discussed w/ Dr. Montoya who is ok to start a full dose anticoagulation, if needed. During the day, had a conversation with the family who were of the opinion that she should be full code for now for the next 24 hours to see how she does and would like to discuss about goals of care pending clinical improvement. Relayed information to the night float team, to keep monitoring APTT closely, to keep it in between 50-100. Discontinue all heparin products such as heparin infusion, subcutaneous Lovenox, heparin subcutaneous or flushes. Confirm that the patient does not take any warfarin. Do not use any IM injections.
--- NOTE | 2017-10-07 12:42 | Cons- Oncology ---
See Addendum General Information and HPI Consulting Request Date of Consult: 10/07/17 Requested By: Fredrick Fajardo MD Reason for Consult: metastatic rectal cancer, thrombocytopenia Source of Information: patient, old records Exam Limitations: clinical condition History of Present Illness: Ms. Russo is a 76-year-old female with metastatic rectal cancer s/p diverting colostomy, HTN, Hypothyroidism, coronary artery disease s/p stents, and obesity who presents to the hospital after being seen by Dr. Makayla Walden and was noted to have intractable pain. She was sent to the hospital for evaluation. On presentation Hospital she was noted to have hypoglycemia, somnolence, and in pain. She was admitted to the ICU for further evaluation. She was placed on 10% dextrose drip. She is given octreotide. Endocrinology was consulted. This morning she is low bit better. She continues have some pain. She has severe pain in the left arm secondary to potassium infusion. She denies any other pain. She has not been able to walk to ambulate much since discharge from the hospital after the diverting colostomy. In addition, on presentation she was noted to have a leukocytosis at 17.5. Hemoglobin was 10.5 with hematocrit of 34.2. Platelet count was 88,000. This morning the platelet count was 58,000. CT of the chest, abdomen, and pelvis was done and noted rectal mass, bilateral pulmonary nodules, and diffuse hepatic disease. Allergies/Medications Allergies: Coded Allergies: shellfish derived (Intermediate, G.I. DISTRESS FROM SCALLOPS 09/14/17) Home Med List: Atorvastatin Calcium 40 MG TABLET 1 TAB PO DAILY CHOLESTROL (Reported) Calcium Carbonate/Vitamin D3 (Calcium 600 + Vit D 400 Tablet) 600 MG-400 TABLET 1 TAB PO BID VITAMIN SUPPORT (Reported) Empagliflozin (Jardiance) 10 MG TABLET 1 TAB PO Q48 DM (Reported) Ferrous Sulfate 325 MG (65 MG IRON) TABLET 1 TAB PO BID IRON, VITAMIN ( Reported) Furosemide (Lasix) 20 MG TABLET 1 TAB PO DAILY HTN Glimepiride 4 MG TABLET 1 TAB PO DAILY DM (Reported) Insulin Lispro (Humalog Kwikpen U-100) (Unknown Strength) INSULN.PEN (Unknown Dose) SC SEE SLIDING SCALE DIABETES (Reported) Levothyroxine Sodium 25 MCG TABLET 1 TAB PO DAILY THYROID (Reported) Lisinopril 20 MG TABLET 1 TAB PO DAILY HEART (Reported) Metoprolol Tartrate 25 MG TABLET 1 TAB PO BID HTN Multivitamin (Daily Multiple Vitamin) 1 EACH TABLET 1 TAB PO DAILY VITAMIN SUPPORT (Reported) Oxycodone HCl/Acetaminophen (Percocet 5-325 MG Tablet) 5 MG-325 MG TABLET 1-2 TAB PO Q4-6 PRN PAIN Quinapril HCl 20 MG TABLET 1 TAB PO DAILY HTN (Reported) Sitagliptin Phos/Metformin HCl (Janumet 50-1,000 MG Tablet) 50 MG-1,000 MG TABLET 1 TAB PO BID DM (Reported) Current Medications: Current Medications Sig/Rose Start time Last Medication Dose Route Stop Time Status Admin Acetaminophen 0 .STK-MED ONE 10/06 1318 DC IV Acetaminophen 1,000 MG ONCE ONE 10/06 1300 DC 10/06 N/A 1 UNIT IV 10/06 1314 1325 Dextrose 25 GM ONCE ONE 10/07 0830 DC IV 10/07 0831 Dextrose 25 GM ONCE ONE 10/06 2300 DC 10/06 IV 10/06 2301 2300 Dextrose 25 GM ONCE ONE 10/06 1500 DC 10/06 IV 10/06 1501 1459 Dextrose/Sodium 1,000 ML .Q10H 10/06 1845 DC Chloride IV 10/07 1444 Dextrose/Water 1,000 ML .Q10H 10/07 0615 AC 10/07 IV 10/07 1614 0614 Dextrose/Water 1,000 ML .Q6H40M 10/06 2200 DC 10/06 IV 10/07 0439 2341 Dextrose/Water 1,000 ML .Q6H40M 10/06 1500 DC 10/06 IV 1544 Glucagon 1 MG ONCE ONE 10/06 2330 DC 04 SC 10/06 2331 2341 Heparin Sodium 5,000 UNIT Q8 10/06 2200 DC 10/07 (Porcine) SC 0609 Ketorolac 30 MG Q6 PRN 10/07 0010 DC Tromethamine IV Ketorolac 30 MG Q6 10/06 2359 DC 10/06 Tromethamine IV 10/07 0010 2348 Ketorolac 0 .STK-MED ONE 10/06 1648 DC Tromethamine .ROUTE Ketorolac 30 MG ONCE ONE 10/06 1630 DC 10/06 Tromethamine IV 10/06 1631 1630 Magnesium Sulfate 1 GM Q2H 10/07 0045 DC 10/07 Dextrose/Water 100 ML IV 10/07 0444 0259 Morphine Sulfate 0 .STK-MED ONE 10/06 1649 DC .ROUTE Morphine Sulfate 2 MG ONCE ONE 10/06 1630 DC / IV 10/06 1631 1630 Morphine Sulfate 4 MG ONCE ONE 10/06 1600 DC 10/06 IV 10/06 1601 1640 Morphine Sulfate 0 .STK-MED ONE 10/06 1553 DC .ROUTE Morphine Sulfate 0 .STK-MED ONE 10/06 1318 DC .ROUTE Morphine Sulfate 4 MG ONCE ONE 10/06 1300 DC / IV 10/06 1301 1325 Octreotide Acetate 100 MCG ONCE ONE 10/07 0215 DC 10/07 IV 10/07 0216 0357 Ondansetron HCl 4 MG Q8P PRN 10/06 1845 AC IV Potassium Chloride 10 MEQ Q1H 10/07 0545 DC 10/07 IV 10/07 0646 0958 Sodium Chloride 1,000 ML Q13H 10/07 0100 AC 10/07 IV 0059 Sodium Chloride 1,000 ML BOLUS ONE 10/06 2200 DC IV 10/06 2259 Review of Systems Review of Systems Constitutional: Reports: malaise, weakness. Cardiovascular: Denies: chest pain. Respiratory: Denies: short of breath. GI: Reports: abdominal pain. Musculoskeletal: Reports: back pain, muscle pain. Neurological/Psychological: Reports: confusion, depressed. Hematologic/Endocrine: Denies: bruising, bleeding. All Other Systems: Reviewed and Negative Past History Travel History Traveled to [place] past 21 day No Medical History Neurological: NONE EENT: NONE Cardiovascular: CAD (s/p stents), hypertension, hyperlipidemia, HEART MURMUR Respiratory: NONE Gastrointestinal: COLORECTAL CANCER Hepatic: mets to liver/lung Renal: nephrolithiasis Musculoskeletal: NONE Psychiatric: NONE Endocrine: diabetes, hypothyroidism, obesity Blood Disorders: NONE Cancer(s): colon/rectal cancer BEDSPREAD CUTTER/Reproductive: NONE Surgical History Surgical History: non-contributory Family History Relations & Conditions If Any: FATHER FH: heart disease MOTHER FH: cancer of digestive organ BROTHER FH: heart attack SISTER FHx: lung cancer BROTHER Psychosocial History Where Do You Live? [facility] Who Do You Live With? self Primary Language: Citizen Of [place] Smoking Status: Former Smoker ETOH Use: denies use Functional Ability ADLs Independent: dressing, eating, toileting, bathing. Ambulation: independent IADLs Independent: shopping, housework, finances, telephone, medication admin. Exam & Diagnostic Data Vital Signs and I&O Vital Signs Date Time Temp Pulse Resp B/P B/P Pulse O2 O2 Flow FiO2 Mean Ox Delivery Rate 10/07 0400 99 Nasal 2.0L Cannula 10/07 0000 99 Nasal 2.0L Cannula 10/06 2300 97.0 67 14 96/50 99 Nasal 2.0L Cannula 10/06 2116 95.8 71 19 86/50 96 Nasal Cannula 10/06 2114 Nasal 2.0L Cannula 10/07 2023 97.5 72 16 100/49 95 Nasal 3.0L Cannula 10/06 1624 98.1 81 24 122/58 98 Nasal 3.0L Cannula 10/06 1441 98.0 78 16 115/54 97 Nasal 3.0L Cannula 10/06 1257 Room Air 10/06 1241 98.3 84 22 109/53 100 Room Air Intake & Output 10/07 1600 10/07 0800 10/07 0000 Intake Total 1296 500 Output Total Balance 1296 500 Intake, IV 1296 500 Number 1 Bowel Movements Patient 95.736 kg 95.736 kg 91.682 kg Weight Weight Bed scale Bed scale Measurement Method Physical Exam General Appearance: alert, awake, mild distress, obese Head: atraumatic Eyes: Bilateral: PERRL. Ears, Nose, Throat: normal pharynx Neck: supple Respiratory: no respiratory distress, quiet respiration Cardiovascular: tachycardia Gastrointestinal: normal bowel sounds, tenderness Extremities: upper and lower extremity edema Neurologic/Psych: awake, alert, oriented x 3 Lymphatic: no anterior cervical guille Last 48 Hours of Lab Results: Laboratory Tests 10/07 10/07 10/06 0600 0426 2317 Chemistry Sodium (137 - 145 mmol/L) 132 L Potassium (3.5 - 5.1 mmol/L) 3.3 L Chloride (98 - 107 mmol/L) 103 Carbon Dioxide (22 - 30 mmol/L) 23 Anion Gap (5 - 16) 6 BUN (7 - 17 mg/dL) 21 H Creatinine (0.5 - 1.0 mg/dL) 0.7 Estimated GFR (>60 ml/min) > 60 BUN/Creatinine Ratio (7 - 25 %) 30.0 H Ammonia (9 - 30 umol/L) 41 H TSH (0.270 - 4.200 uIU/mL) 3.680 Free T4 (0.78 - 2.44 ng/dL) 1.02 Coagulation Fibrinogen Activity (200 - 393 MG/DL) 367 Hematology CBC w Diff NO MAN DIFF REQ WBC (4.8 - 10.8 /CUMM) 15.6 H RBC (4.20 - 5.40 /CUMM) 3.61 L Hgb (12.0 - 16.0 G/DL) 8.8 L Hct (37 - 47 %) 27.6 L MCV (81.0 - 99.0 FL) 76.4 L MCH (27.0 - 31.0 PG) 24.3 L MCHC (33.0 - 37.0 G/DL) 31.7 L RDW (11.5 - 14.5 %) 24.2 H Plt Count (130 - 400 /CUMM) 58 L MPV (7.4 - 10.4 FL) 9.2 Gran % (42.2 - 75.2 %) 81.7 H Lymphocytes % (20.5 - 51.1 %) 11.3 L Monocytes % (1.7 - 9.3 %) 6.6 Eosinophils % (0 - 5 %) 0.3 Basophils % (0.0 - 2.0 %) 0.1 Absolute Granulocytes (1.4 - 6.5 /CUMM) 12.8 H Absolute Lymphocytes (1.2 - 3.4 /CUMM) 1.8 Absolute Monocytes (0.10 - 0.60 /CUMM) 1.0 H Absolute Eosinophils (0.0 - 0.7 /CUMM) 0 Absolute Basophils (0.0 - 0.2 /CUMM) 0 Miscellaneous Ref Lab Test Result Pending 10/06 10/06 8367 1358 Chemistry Sodium (137 - 145 mmol/L) 128 L 132 L Potassium (3.5 - 5.1 mmol/L) 3.7 3.9 Chloride (98 - 107 mmol/L) 94 L 97 L Carbon Dioxide (22 - 30 mmol/L) 28 30 Anion Gap (5 - 16) 6 6 BUN (7 - 17 mg/dL) 25 H 22 H Creatinine (0.5 - 1.0 mg/dL) 0.8 0.7 Estimated GFR (>60 ml/min) > 60 > 60 BUN/Creatinine Ratio (7 - 25 %) 31.4 H Glucose (65 - 99 mg/dL) 111 H 22 *L Insulin Level (3.0 - 25.0 mIU/mL) 46.5 H Lactic Acid (0.7 - 2.1 mmol/L) 1.7 Calcium (8.4 - 10.2 mg/dL) 7.2 L 7.5 L Phosphorus (2.5 - 4.5 mg/dL) 3.6 Magnesium (1.6 - 2.3 mg/dL) 1.5 L Total Bilirubin (0.2 - 1.3 mg/dL) 0.7 0.8 GGT (12 - 43 U/L) 2724 H AST (14 - 36 U/L) 400 H 501 H ALT (9 - 52 U/L) 81 H 92 H Alkaline Phosphatase (<127 U/L) 2012 H Troponin I (< 0.11 ng/ml) 0.03 Total Protein (6.3 - 8.2 g/dL) 4.6 L Albumin (3.5 - 5.0 g/dL) 1.6 L 1.9 L Globulin (1.9 - 4.2 gm/dL) 2.7 Albumin/Globulin Ratio (1.1 - 2.2 %) 0.7 L Cortisol PM Sample (1.7 - 14.1) 24.3 H Coagulation PT (9.4 - 12.5 SEC) 17.0 H INR (0.90 - 1.19) 1.55 H APTT (25 - 37 SEC) 41 H Hematology CBC w Diff NO MAN DIFF REQ WBC (4.8 - 10.8 /CUMM) 14.7 H RBC (4.20 - 5.40 /CUMM) 3.46 L Hgb (12.0 - 16.0 G/DL) 8.2 L Hct (37 - 47 %) 26.3 L MCV (81.0 - 99.0 FL) 75.9 L MCH (27.0 - 31.0 PG) 23.8 L MCHC (33.0 - 37.0 G/DL) 31.3 L RDW (11.5 - 14.5 %) 23.6 H Plt Count (130 - 400 /CUMM) 61 L MPV (7.4 - 10.4 FL) 8.8 Gran % (42.2 - 75.2 %) 85.5 H Lymphocytes % (20.5 - 51.1 %) 11.0 L Monocytes % (1.7 - 9.3 %) 3.3 Eosinophils % (0 - 5 %) 0.1 Basophils % (0.0 - 2.0 %) 0.1 Absolute Granulocytes (1.4 - 6.5 /CUMM) 12.6 H Absolute Lymphocytes (1.2 - 3.4 /CUMM) 1.6 Absolute Monocytes (0.10 - 0.60 /CUMM) 0.5 Absolute Eosinophils (0.0 - 0.7 /CUMM) 0 Absolute Basophils (0.0 - 0.2 /CUMM) 0 10/06 1325 Hematology CBC w Diff MAN DIFF ORDERED WBC (4.8 - 10.8 /CUMM) 17.5 H RBC (4.20 - 5.40 /CUMM) 4.52 Hgb (12.0 - 16.0 G/DL) 10.5 L Hct (37 - 47 %) 34.2 L MCV (81.0 - 99.0 FL) 75.7 L MCH (27.0 - 31.0 PG) 23.3 L MCHC (33.0 - 37.0 G/DL) 30.7 L RDW (11.5 - 14.5 %) 24.4 H Plt Count (130 - 400 /CUMM) 88 L MPV (7.4 - 10.4 FL) 8.4 Gran % (42.2 - 75.2 %) 84.0 H Lymphocytes % (20.5 - 51.1 %) 6.3 L Monocytes % (1.7 - 9.3 %) 9.5 H Eosinophils % (0 - 5 %) 0.1 Basophils % (0.0 - 2.0 %) 0.1 Absolute Granulocytes (1.4 - 6.5 /CUMM) 14.7 H Absolute Lymphocytes (1.2 - 3.4 /CUMM) 1.1 L Absolute Monocytes (0.10 - 0.60 /CUMM) 1.7 H Absolute Eosinophils (0.0 - 0.7 /CUMM) 0 Absolute Basophils (0.0 - 0.2 /CUMM) 0 Platelet Estimate (ADEQUATE) DECREASED Hypochromic-Microcytic 1+ Poikilocytosis 2+ Anisocytosis 1+ Microcytic Cells 1+ Assessment/Plan Assessment: Ms. Ackerknecht is a 76-year-old female with metastatic rectal cancer to the lung and liver s/p diverting colostomy who presented with intractable pain and somnolence. She was seen in radiation oncology office and was noted to be in severe extremis. She was sent to [facility] for evaluation. On admission she was noted to be somnolent and hypoglycemic. She was started on the 10% dextrose drip in addition to octreotide. Endocrinology was consulted. Blood glucose is a little bit better. In addition, she was noted to have new thrombocytopenia. Her platelet count is 58,000 today. Her platelet count has significantly dropped recently. Her fibrinogen is normal. She does have elevated PT and PTT. 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 She will get bilateral lower extremity and upper extremity ultrasound. HIT panel was sent. She was started on heparin on admission. This has been stopped. She was started on argatroban if she does have DVT. With regard to her metastatic rectal cancer, I discussed with the patient that her performance status has to increase prior to being to start therapy. If she continues to have a low performance status, she will not be a candidate for therapy. At that point she will be a candidate for hospice with focus on comfort. The family expressed understanding of this and is in agreement that the overall goal is to keep the patient comfortable and prolong her life as long as possible. Recommendations: Thrombocytopenia: -HIT evaluation -US of extremity -Argatroban drip if thrombosis -monitor closely for bleeding Metastatic rectal cancer: -f/u outpatient -if worsening PS, candidate for hospice -candidate for hospice if patient does not wish to pursue chemotherapy Hypoglycemia: -management as per primary and endocrinology Problem List: 1. Metastatic disease 2. Intractable pain 3. Colostomy in place 4. Rectal carcinoma 5. Metastases to the liver 6. Microcytic anemia 7. Thrombocytopenia Other Findings/Comments: Please call [phone] with any questions or concerns. Consult Acknowledgment - Thank you for your consult request.
--- NOTE | 2017-10-07 12:42 | ULTRASOUND REPORT ---
EXAMINATION: US TRIPLEX OF LOWER EXTREMITIES, BILATERAL CLINICAL INFORMATION: Bilateral lower extremity swelling, tenderness. COMPARISON: None TECHNIQUE: Color-flow triplex imaging with spectral analysis and compression Doppler were performed on the lower extremities. FINDINGS: The study is somewhat technically limited. Respiratory variation, normal compression and augmented flow are noted throughout the lower extremities. The visualized common femoral vein, superficial femoral vein, profunda femoral vein, popliteal vein and midcalf peroneal and posterior tibial venous segments show no evidence of deep venous thrombosis. There is no Cordero's cyst. IMPRESSION: 1. Technically limited study. 2. No evidence of deep venous thrombosis involving the lower extremities.
--- NOTE | 2017-10-07 12:57 | Cons- Endocrinology ---
General Information and HPI Consulting Request Date of Consult: 10/07/17 Requested By: ICU team Reason for Consult: evaluation and management of severe hypoglycemia Source of Information: patient, family, old records Exam Limitations: no limitations History of Present Illness: Ms. Russo is a 76-year-old female with metastatic rectal cancer s/p diverting colostomy, HTN, Hypothyroidism, coronary artery disease s/p stents, DM type 2 and obesity who was admitted to ICU for severe hypoglycemia with glucose leve in the 20s. When she was in rehab, she was on Janumet, Jardiance, glimepiride and Humalog. As per her daughter, her po intake has been poor. Overnight, she was on 10% dextrose 125 ml/hour. she still required multiple vials of D50 in order to keep her glucose level in the safe range. Her random cortisol was 24.3. But her insulin level was 46.5. patient received Octrotide at around 2 am. Since then, her glucose level has been more stable. She is still on 10% dextrose at 100 ml/hour. Allergies/Medications Allergies: Coded Allergies: shellfish derived (Intermediate, G.I. DISTRESS FROM [place]OPS 09/14/17) Home Med List: Atorvastatin Calcium 40 MG TABLET 1 TAB PO DAILY CHOLESTROL (Reported) Calcium Carbonate/Vitamin D3 (Calcium 600 + Vit D 400 Tablet) 600 MG-400 TABLET 1 TAB PO BID VITAMIN SUPPORT (Reported) Empagliflozin (Jardiance) 10 MG TABLET 1 TAB PO Q48 DM (Reported) Ferrous Sulfate 325 MG (65 MG IRON) TABLET 1 TAB PO BID IRON, VITAMIN ( Reported) Furosemide (Lasix) 20 MG TABLET 1 TAB PO DAILY HTN Glimepiride 4 MG TABLET 1 TAB PO DAILY DM (Reported) Insulin Lispro (Humalog Kwikpen U-100) (Unknown Strength) INSULN.PEN (Unknown Dose) SC SEE SLIDING SCALE DIABETES (Reported) Levothyroxine Sodium 25 MCG TABLET 1 TAB PO DAILY THYROID (Reported) Lisinopril 20 MG TABLET 1 TAB PO DAILY HEART (Reported) Metoprolol Tartrate 25 MG TABLET 1 TAB PO BID HTN Multivitamin (Daily Multiple Vitamin) 1 EACH TABLET 1 TAB PO DAILY VITAMIN SUPPORT (Reported) Oxycodone HCl/Acetaminophen (Percocet 5-325 MG Tablet) 5 MG-325 MG TABLET 1-2 TAB PO Q4-6 PRN PAIN Quinapril HCl 20 MG TABLET 1 TAB PO DAILY HTN (Reported) Sitagliptin Phos/Metformin HCl (Janumet 50-1,000 MG Tablet) 50 MG-1,000 MG TABLET 1 TAB PO BID DM (Reported) Review of Systems Review of Systems Constitutional: Reports: see HPI (patient is too weak to provide). Past History Travel History Traveled to [place] past 21 day No Medical History Neurological: NONE EENT: NONE Cardiovascular: CAD (s/p stents), hypertension, hyperlipidemia, HEART MURMUR Respiratory: NONE Gastrointestinal: COLORECTAL CANCER Hepatic: mets to liver/lung Renal: nephrolithiasis Musculoskeletal: NONE Psychiatric: NONE Endocrine: diabetes, hypothyroidism, obesity Blood Disorders: NONE Cancer(s): colon/rectal cancer RN LVN/Reproductive: NONE Surgical History Surgical History: non-contributory Family History Relations & Conditions If Any: FATHER FH: heart disease MOTHER FH: cancer of digestive organ BROTHER FH: heart attack SISTER FHx: lung cancer BROTHER Psychosocial History Where Do You Live? [facility] Who Do You Live With? self Primary Language: Turkish Smoking Status: Former Smoker ETOH Use: denies use Functional Ability ADLs Independent: dressing, eating, toileting, bathing. Ambulation: independent IADLs Independent: shopping, housework, finances, telephone, medication admin. Exam & Diagnostic Data Last 24 Hrs of Vital Signs/I&O Vital Signs Date Time Temp Pulse Resp B/P B/P Pulse O2 O2 Flow FiO2 Mean Ox Delivery Rate 10/07 0400 99 Nasal 2.0L Cannula 10/07 0000 99 Nasal 2.0L Cannula 10/06 2300 97.0 67 14 96/50 99 Nasal 2.0L Cannula 10/07 2115 95.8 71 19 86/50 96 Nasal Cannula 10/06 2113 Nasal 2.0L Cannula 10/07 2023 97.5 72 16 100/49 95 Nasal 3.0L Cannula Intake & Output 10/07 1600 10/07 0800 10/07 0000 Intake Total 1296 500 Output Total Balance 1296 500 Intake, IV 1296 500 Number 1 Bowel Movements Patient 211 lb 211 lb 202 lb Weight Weight Bed scale Bed scale Measurement Method Physical Exam General Appearance: cachetic Respiratory: decreased breath sounds Cardiovascular: regular rate/rhythm Gastrointestinal: distention Extremities: swelling Labs/Tha Results: Laboratory Tests 04/13 04/13 04/13 1330 0600 0426 Chemistry Sodium (137 - 145 mmol/L) 132 L Potassium (3.5 - 5.1 mmol/L) 3.3 L Chloride (98 - 107 mmol/L) 103 Carbon Dioxide (22 - 30 mmol/L) 23 Anion Gap (5 - 16) 6 BUN (7 - 17 mg/dL) 21 H Creatinine (0.5 - 1.0 mg/dL) 0.7 Estimated GFR (>60 ml/min) > 60 BUN/Creatinine Ratio (7 - 25 %) 30.0 H TSH (0.270 - 4.200 uIU/mL) 3.680 Free T4 (0.78 - 2.44 ng/dL) 1.02 Hematology CBC w Diff NO MAN DIFF REQ WBC (4.8 - 10.8 /CUMM) 15.6 H RBC (4.20 - 5.40 /CUMM) 3.61 L Hgb (12.0 - 16.0 G/DL) 8.8 L Hct (37 - 47 %) 27.6 L MCV (81.0 - 99.0 FL) 76.4 L MCH (27.0 - 31.0 PG) 24.3 L MCHC (33.0 - 37.0 G/DL) 31.7 L RDW (11.5 - 14.5 %) 24.2 H Plt Count (130 - 400 /CUMM) 58 L MPV (7.4 - 10.4 FL) 9.2 Gran % (42.2 - 75.2 %) 81.7 H Lymphocytes % (20.5 - 51.1 %) 11.3 L Monocytes % (1.7 - 9.3 %) 6.6 Eosinophils % (0 - 5 %) 0.3 Basophils % (0.0 - 2.0 %) 0.1 Absolute Granulocytes (1.4 - 6.5 /CUMM) 12.8 H Absolute Lymphocytes (1.2 - 3.4 /CUMM) 1.8 Absolute Monocytes (0.10 - 0.60 /CUMM) 1.0 H Absolute Eosinophils (0.0 - 0.7 /CUMM) 0 Absolute Basophils (0.0 - 0.2 /CUMM) 0 Immunology Heparin-induced Plt Ab Pending Heparin-PF4 AB OD Pending Miscellaneous Ref Lab Test Result Pending 04/12 04/12 2317 2317 Chemistry Sodium (137 - 145 mmol/L) 128 L Potassium (3.5 - 5.1 mmol/L) 3.7 Chloride (98 - 107 mmol/L) 94 L Carbon Dioxide (22 - 30 mmol/L) 28 Anion Gap (5 - 16) 6 BUN (7 - 17 mg/dL) 25 H Creatinine (0.5 - 1.0 mg/dL) 0.8 Estimated GFR (>60 ml/min) > 60 Glucose (65 - 99 mg/dL) 111 H Insulin Level (3.0 - 25.0 mIU/mL) 46.5 H Lactic Acid (0.7 - 2.1 mmol/L) 1.7 Calcium (8.4 - 10.2 mg/dL) 7.2 L Phosphorus (2.5 - 4.5 mg/dL) 3.6 Magnesium (1.6 - 2.3 mg/dL) 1.5 L Total Bilirubin (0.2 - 1.3 mg/dL) 0.7 AST (14 - 36 U/L) 400 H ALT (9 - 52 U/L) 81 H Ammonia (9 - 30 umol/L) 41 H Albumin (3.5 - 5.0 g/dL) 1.6 L Cortisol PM Sample (1.7 - 14.1) 24.3 H Coagulation PT (9.4 - 12.5 SEC) 17.0 H INR (0.90 - 1.19) 1.55 H APTT (25 - 37 SEC) 41 H Fibrinogen Activity (200 - 393 MG/DL) 367 Hematology CBC w Diff NO MAN DIFF REQ WBC (4.8 - 10.8 /CUMM) 14.7 H RBC (4.20 - 5.40 /CUMM) 3.46 L Hgb (12.0 - 16.0 G/DL) 8.2 L Hct (37 - 47 %) 26.3 L MCV (81.0 - 99.0 FL) 75.9 L MCH (27.0 - 31.0 PG) 23.8 L MCHC (33.0 - 37.0 G/DL) 31.3 L RDW (11.5 - 14.5 %) 23.6 H Plt Count (130 - 400 /CUMM) 61 L MPV (7.4 - 10.4 FL) 8.8 Gran % (42.2 - 75.2 %) 85.5 H Lymphocytes % (20.5 - 51.1 %) 11.0 L Monocytes % (1.7 - 9.3 %) 3.3 Eosinophils % (0 - 5 %) 0.1 Basophils % (0.0 - 2.0 %) 0.1 Absolute Granulocytes (1.4 - 6.5 /CUMM) 12.6 H Absolute Lymphocytes (1.2 - 3.4 /CUMM) 1.6 Absolute Monocytes (0.10 - 0.60 /CUMM) 0.5 Absolute Eosinophils (0.0 - 0.7 /CUMM) 0 Absolute Basophils (0.0 - 0.2 /CUMM) 0 Assessment/Plan Assessment/Plan Ms. Russo is a 76-year-old female with metastatic rectal cancer s/p diverting colostomy, HTN, Hypothyroidism, coronary artery disease s/p stents, DM type 2 and obesity who was admitted to ICU for severe hypoglycemia with glucose leve in the 20s. The underlying caueses of severe hypoglycemia-- poor intake, sulfonyureas, extensive metastatic lesions and liver dysfunction, etc. management: 1. continue the current D10w for now; 2. monitor FSGs every 1-2 hours; 3. repeat octreotide as indicated; 4. additional D50w and or Glucogan as needed; 5. change IVF to D5w after her glucose levels are stable. will folow; please call if there are any questions. Consult Acknowledgment - Thank you for your consult request.
--- NOTE | 2017-10-07 13:45 | MRI REPORT ---
EXAMINATION: MR LUMBAR SPINE WITHOUT AND WITH CONTRAST CLINICAL INFORMATION: Back pain. Rule out metastatic disease. COMPARISON: Abdominal CT performed earlier the same day. TECHNIQUE: MRI of the lumbar spine was obtained before and after intravenous administration of 10 mL Gadavist. FINDINGS: This is a limited motion degraded study. There are 5 rib-bearing lumbar-type vertebral bodies. Lumbar alignment is normal. Bone marrow signal is homogenous and normal without evidence of osseous metastatic disease. There is no bone marrow edema. There are no acute fractures. Partial disc desiccation at all lumbar levels, greatest at L5-S1. Disc volumes are maintained within the lumbar spine. There is moderate disc volume loss at the partially imaged T9-T10 and T10-T11 levels. No enhancing epidural masses. Accounting for artifact no definite pathologic intrathecal enhancement is appreciated. The conus terminates at the L1-L2 level. Intra-abdominal and intrapelvic soft tissues are better demonstrated on the abdominal and pelvic CT performed earlier the same day. Please see that report for further details. The L1-L2 and the L2-L3 disc contours are normal. There is no central canal stenosis and there is no foraminal stenosis at these levels. L3-L4: Diffuse annular disc bulge and mild to moderate bilateral facet arthropathy and ligamentum flavum thickening. There is no central canal stenosis. Mild foraminal narrowing bilaterally. L4-L5: Diffuse annular disc bulge and moderate bilateral hypertrophic facet arthropathy and ligamentum flavum thickening. Findings in concert result in narrowing of the subarticular zones bilaterally without definite traversing nerve root compression. There is mild foraminal narrowing bilaterally. L5-S1: There is a shallow central disc protrusion that indents the ventral epidural fat without resulting in mass effect on the traversing nerve roots. Background annular disc bulge and moderate bilateral facet arthropathy. No central canal stenosis. Mild foraminal narrowing bilaterally. IMPRESSION: - This is a limited motion degraded study. There is no evidence of spinal metastatic disease. No enhancing epidural masses. No acute fractures. - Mild to moderate spondylosis at the L3-L4, L4-L5, and L5-S1 levels. There is no severe central canal stenosis and there is no severe foraminal stenosis within the lumbar spine. - Intra-abdominal and intrapelvic soft tissues are better demonstrated on the abdominal and pelvic CT performed earlier the same day. Please see that report for further details. Known liver metastases and a known rectal mass with enlarged perirectal lymph nodes are partially imaged on this study and better demonstrated on the prior exam.
[2017-10-07 16:00] VITALS: BP 140/70
--- NOTE | 2017-10-07 16:55 | Cons- Palliative Care ---
General Information and HPI Consulting Request Date of Consult: 10/07/17 Requested By: Fredrick Fajardo MD Reason for Consult: pain management, non-pain symptom mgmt, care/transition planning Source old records, medical team Exam Limitations unable to give history, not alert/orientated, confusion History of Present Illness: Patient is a 76 year old female with known metastatic recal cancer. She was transferred to from [facility] where she was identified with symptomatic hypoglycemia. She is now in ICU on continue dextrose infusion. It is unclear at this point whether this represents a physiological deterioration or is iatrorgenic in nature. She has recently been treated with a sulfonylurea for DM- 2 and question has been raised whether her condition is due to a adverse effect of medication. She is experiencing confusion at this time and is unable to provide additional history. Information for this consultation is obtained from the medical record and direct communication with the ICU medical team. Regarding her malignancy, she has been undergoing palliative XRT. She is not currently undergoing active chemotherapy. A review of her advance directives indicate preference for CPR at this time. The medical team also shares with me that patient is symptomatic from intractable back pain at this time. Other medical problems include signs of hepatic dysfunction, thrombocytopenia. Allergies/Medications Allergies: Coded Allergies: shellfish derived (Intermediate, G.I. DISTRESS FROM [place] 09/14/17) Home Med List: Atorvastatin Calcium 40 MG TABLET 1 TAB PO DAILY CHOLESTROL (Reported) Calcium Carbonate/Vitamin D3 (Calcium 600 + Vit D 400 Tablet) 600 MG-400 TABLET 1 TAB PO BID VITAMIN SUPPORT (Reported) Empagliflozin (Jardiance) 10 MG TABLET 1 TAB PO Q48 DM (Reported) Ferrous Sulfate 325 MG (65 MG IRON) TABLET 1 TAB PO BID IRON, VITAMIN ( Reported) Furosemide (Lasix) 20 MG TABLET 1 TAB PO DAILY HTN Glimepiride 4 MG TABLET 1 TAB PO DAILY DM (Reported) Insulin Lispro (Humalog Kwikpen U-100) (Unknown Strength) INSULN.PEN (Unknown Dose) SC SEE SLIDING SCALE DIABETES (Reported) Levothyroxine Sodium 25 MCG TABLET 1 TAB PO DAILY THYROID (Reported) Lisinopril 20 MG TABLET 1 TAB PO DAILY HEART (Reported) Metoprolol Tartrate 25 MG TABLET 1 TAB PO BID HTN Multivitamin (Daily Multiple Vitamin) 1 EACH TABLET 1 TAB PO DAILY VITAMIN SUPPORT (Reported) Oxycodone HCl/Acetaminophen (Percocet 5-325 MG Tablet) 5 MG-325 MG TABLET 1-2 TAB PO Q4-6 PRN PAIN Quinapril HCl 20 MG TABLET 1 TAB PO DAILY HTN (Reported) Sitagliptin Phos/Metformin HCl (Janumet 50-1,000 MG Tablet) 50 MG-1,000 MG TABLET 1 TAB PO BID DM (Reported) Current Medications: Current Medications Sig/Rose Start time Last Medication Dose Route Stop Time Status Admin Argatroban 250 MG Q24H 10/07 1345 AC Sodium Chloride 250 ML IV Dextrose 25 GM ONCE ONE 10/07 0830 DC IV 10/07 0831 Dextrose 25 GM ONCE ONE 10/06 2300 DC 10/06 IV 10/06 2301 2300 Dextrose/Sodium 1,000 ML .Q10H 10/06 1845 DC Chloride IV 10/07 1444 Dextrose/Water 1,000 ML .Q10H 10/07 0615 DC 10/07 IV 10/07 1614 0614 Dextrose/Water 1,000 ML .Q6H40M 10/06 2200 DC 10/06 IV 10/07 0439 2341 Dextrose/Water 1,000 ML .Q6H40M 10/06 1500 DC 10/06 IV 1544 Glucagon 1 MG ONCE ONE 10/06 2330 DC 10/06 SC 10/06 2331 2341 Heparin Sodium 5,000 UNIT Q8 10/06 2200 DC 10/07 (Porcine) SC 0609 Ketorolac 30 MG Q6 PRN 10/07 0010 DC Tromethamine IV Ketorolac 30 MG Q6 10/06 2359 DC 10/06 Tromethamine IV 10/07 0010 2348 Ketorolac 0 .STK-MED ONE 10/06 1648 DC Tromethamine .ROUTE Magnesium Sulfate 1 GM Q2H 10/07 0045 DC 10/07 Dextrose/Water 100 ML IV 10/07 0444 0259 Morphine Sulfate 2 MG ONCE ONE 10/07 1315 DC 10/07 IV 10/07 1316 1321 Morphine Sulfate 0 .STK-MED ONE 10/06 1649 DC .ROUTE Non-Formulary 0 SEE ADMIN CRITERIA 10/07 1330 CAN Medication ANY Octreotide Acetate 100 MCG ONCE ONE 10/07 0215 DC 10/07 IV 10/07 0216 0357 Ondansetron HCl 4 MG Q8P PRN 10/06 1845 AC IV Oxycodone HCl 5 MG Q6P PRN 10/07 1230 AC PO Potassium Chloride 10 MEQ Q1H 10/07 0545 DC 10/07 IV 10/07 0646 0958 Sodium Chloride 1,000 ML Q13H 10/07 0100 AC 10/07 IV 0059 Sodium Chloride 1,000 ML BOLUS ONE 10/06 2200 DC IV 10/06 2259 Review of Systems Review of Systems: patient is unable to provide review of systems due to encephalopathy Past History Medical History Neurological: NONE EENT: NONE Cardiovascular: CAD (s/p stents), hypertension, hyperlipidemia, HEART MURMUR Respiratory: NONE Gastrointestinal: COLORECTAL CANCER Hepatic: mets to liver/lung Renal: nephrolithiasis Musculoskeletal: NONE Psychiatric: NONE Endocrine: diabetes, hypothyroidism, obesity Blood Disorders: NONE Cancer(s): colon/rectal cancer 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 Who Do You Live With? self Primary Language: Monegasque Smoking Status: Former Smoker ETOH Use: denies use Karnofsky Performance Scale: 20 Living Will? unknown Power of Flatbed Owner Operator/HCP? unknown Functional Ability ADLs Needs Assist: dressing, eating, toileting, bathing. IADLs Needs Assist: shopping, housework, finances, food prep, telephone, transportation, medication admin. Employment History Employment: Retired Retired? yes Exam & Diagnostic Data Last 24 Hrs of Vitals/I&Os: Vital Signs Date Time Temp Pulse Resp B/P B/P Pulse O2 O2 Flow FiO2 Mean Ox Delivery Rate 10/07 0400 99 Nasal 2.0L Cannula 10/07 0000 99 Nasal 2.0L Cannula 10/06 2299 97.0 67 14 96/50 99 Nasal 2.0L Cannula 10/07 2115 95.8 71 19 86/50 96 Nasal Cannula 10/06 2113 Nasal 2.0L Cannula 10/07 2023 97.5 72 16 100/49 95 Nasal 3.0L Cannula Intake & Output 10/07 1600 10/07 0800 10/07 0000 Intake Total 1296 500 Output Total Balance 1296 500 Intake, IV 1296 500 Number 1 Bowel Movements Patient 211 lb 211 lb 202 lb Weight Weight Bed scale Bed scale Measurement Method Physical Exam General Appearance: obese Head: atraumatic, normal appearance Eyes: Bilateral: normal appearance. Extremities: anasarca Neurologic/Psych: awake, disoriented x 3 Diagnostic Data Lab/Micro/Pathology Results: Laboratory Tests 10/07/17 1330: Heparin-induced Plt Ab Pending, Heparin-PF4 AB OD Pending 10/07/17 0600: Ref Lab Test Result Pending 10/07/17 0426: Anion Gap 6, Estimated GFR > 60, BUN/Creatinine Ratio 30.0 H, TSH 3.680, Free T4 1.02, CBC w Diff NO MAN DIFF REQ, RBC 3.61 L, MCV 76.4 L, MCH 24.3 L, MCHC 31.7 L, RDW 24.2 H, MPV 9.2, Gran % 81.7 H, Lymphocytes % 11.3 L, Monocytes % 6.6, Eosinophils % 0.3, Basophils % 0.1, Absolute Granulocytes 12.8 H, Absolute Lymphocytes 1.8, Absolute Monocytes 1.0 H, Absolute Eosinophils 0, Absolute Basophils 0 10/06/17 2317: Ammonia 41 H, Fibrinogen Activity 367 10/06/172316: Anion Gap 6, Estimated GFR > 60, Glucose 111 H, Insulin Level 46.5 H, Lactic Acid 1.7, Calcium 7.2 L, Phosphorus 3.6, Magnesium 1.5 L, Total Bilirubin 0.7, AST 400 H, ALT 81 H, Albumin 1.6 L, Cortisol PM Sample 24.3 H, PT 17.0 H, INR 1.55 H, APTT 41 H, CBC w Diff NO MAN DIFF REQ, RBC 3.46 L, MCV 75.9 L, MCH 23.8 L, MCHC 31.3 L, RDW 23.6 H, MPV 8.8, Gran % 85.5 H, Lymphocytes % 11.0 L, Monocytes % 3.3, Eosinophils % 0.1, Basophils % 0.1, Absolute Granulocytes 12.6 H, Absolute Lymphocytes 1.6, Absolute Monocytes 0.5, Absolute Eosinophils 0, Absolute Basophils 0 Assessment/Plan Assessment 76 year-old female with metastatic rectal cancer now with symptomatic hypoglycemia of uncertain etiology. Patient's Condition: critical Prognosis: grave Is Patient Decisional? no Case Discussed With: house staff Other Recommendations: 1. Clarify goals of care with family (who are now surrogate decision makers during patient's incapacity). Should patient's condition continue to deteriorate without obvious or straightforward reversibility, the likelihood of successful cardiopulmonary resuscitation becomes vasnishingly remote. In general, patient's in this condition are likely to benefit from treatment of easily reversible conditions only. It is possible that hypoglycemia may represent an adverse medication effect which is expected to remediate spontaneously, hence it is reasonable to continue supportive care during this time period. If patient's condition deteriorates further, consider transition to comfort only care. 2. Pain may very well aggravate delirium/encephalopathy - consider treatment with oxycodone which can be titrated to efficacy over the next 24-48h. Oxycodone 5mg every 3h as needed is reasonable. If parenteral analgesia is required, low dose morphine (2mg) may be used at intervals of 30min to 1 hour. The short duration of action of parenteral analgesia necessitates more frequent dosing than orally provided medication. If patient is a candidate for a long acting agent, the total daily dose of oxycodone may be divided by 2 and given twice a day as oxycodone ER. Breakthrough dosing of medication should be provided using short acting oxycodone at a dose of 5-15% of the total 24 hour dose. 3. Utilize a laxative while treating patient with opiate medication. Senna S 1-2 tabs qhs standing is an appropriate agent 4. Provide spiritual support/case management services to family. 5. The palliative care team will follow up on Tuesday - please call [phone] if additional assistance is needed prior to then. Consult Acknowledgment - Thank you for your consult request.
[2017-10-08] VITALS: BP 90/50
[2017-10-08 01:39] LABS: PTT > 120 SEC (25-37)
[2017-10-08 04:16] LABS: ABSOLUTE BASOPHIL COUNT 0 /CUMM (0.0-0.2); ABSOLUTE EOSINOPHIL COUNT 0.1 /CUMM (0.0-0.7); ABSOLUTE GRANULOCYTE CT 14.4 /CUMM (1.4-6.5); ABSOLUTE LYMPH COUNT 2.2 /CUMM (1.2-3.4); BASOPHIL % 0.2 % (0.0-2.0); EOSINOPHIL % 0.3 % (0-5); GRANULOCYTE % 81.2 % (42.2-75.2); MEAN CORPUSCULAR HGB CONC 31.9 G/DL (33.0-37.0); MEAN CORPUSCULAR VOLUME 75.3 FL (81.0-99.0); MEAN PLATELET VOLUME 9.5 FL (7.4-10.4); PLATELET COUNT 79 /CUMM (130-400); RBC DISTRIBUTION WIDTH 23.7 % (11.5-14.5); RED BLOOD CELL CT 3.72 /CUMM (4.20-5.40); WHITE BLOOD CELL COUNT 17.8 /CUMM (4.8-10.8)
[2017-10-08 05:31] LABS: PTT 112 SEC (25-37)
[2017-10-08 08:00] VITALS: BP 112/46
[2017-10-08 08:18] LABS: PT 32.8 SEC (9.4-12.5); PTT 70 SEC (25-37)
--- NOTE | 2017-10-08 08:46 | PN- Resident CRCU ---
Miguel Cade 10/08/17 0846: Subjective HPI/CRCU Issues: #1 hypoglycemia #2 back pain #3 hyponatremia-chronic #4 thrombocytopenia, rule out heparin-induced thrombocytopenia #5 right upper extremity venous thrombus #6 metabolic encephalopathy #7 anemia-iron deficiency anemia and anemia of chronic disease #8 metastatic rectal cancer with metastases to liver and lung #9 leukocytosis 24 Hour Events: Patient was seen and examined this morning. She is alert awake and oriented to time place and person. Vitals MAXIMUM TEMPERATURE 98, pulse 90, respiratory rate 20, blood pressure manual 90/50, saturating at 97 on 2 L. Patient reports back pain this morning. She refuses blood work and respiratory treatments. She refuses to wear nasal cannula. Patient reports that she wants to be comfortable. Denies any chest pain, nausea, vomiting, abdomen pain, constipation or diarrhea. Lab work this morning Leukocytosis 17.8, hemoglobin 8.9, platelets 79 INR 2.98 Chronic hyponatremia 127 Blood glucose 135. Off from D10 drip Objective Vital Signs & I&O Last 8 Hrs of Vitals and I&O: Vital Signs Date Time Temp Pulse Resp B/P B/P Pulse O2 O2 Flow FiO2 Mean Ox Delivery Rate 10/08 0400 98 Nasal 2.0L Cannula 10/08 0000 95 Nasal 2.0L Cannula 10/08 0000 99.1 96 20 90/50 95 Nasal 2.0L Cannula 10/07 2000 95 Nasal 2.0L Cannula 10/07 1600 98 Nasal 2.0L Cannula 10/07 1600 98.0 80 20 140/70 98 Nasal 2.0L Cannula 10/07 1200 98 Nasal 2.5L Cannula Intake & Output 10/08 1600 10/08 0800 10/08 0000 Intake Total 0 1206 Output Total 0 Balance 0 1206 Intake, IV 1206 Intake, Oral 0 0 Number 0 Bowel Movements Output, Stool 0 Patient 91.852 kg Weight Weight Bed scale Measurement Method Exam General Appearance: alert, awake, mild distress Other Physical Findings: General Appearance: mild distress Head: atraumatic Eyes: Bilateral: PERRL, EOMI, pale conjunctivae. Ears, Nose, Throat: normal pharynx Neck: normal inspection, supple Respiratory: normal breath sounds Cardiovascular: regular rate/rhythm Peripheral Pulses: 2+ radial (R), 2+ radial (L) Gastrointestinal: normal bowel sounds, soft, colostomy bag in place Rectal: heme positive stool Back: normal inspection Extremities: pedal edema Neurologic/Psych: awake Cranial Nerves: normal hearing, normal speech, PERRL Reflexes: 2+: knee (R), knee (L). Current Medications: Current Medications Sig/Rose Start time Last Medication Dose Route Stop Time Status Admin Argatroban 250 MG Q24H 10/07 1345 10/07 Sodium Chloride 250 ML IV 202 Dextrose/Sodium 1,000 ML Q13H 10/07 2230 DC 10/07 Chloride IV 2227 Dextrose/Water 1,000 ML Q13H 10/07 2230 CAN IV Dextrose/Water 1,000 ML Q13H 10/07 2045 DC 10/07 IV 205 Dextrose/Water 1,000 ML DAILY 10/07 2014 DC 10/07 IV 2014 Dextrose/Water 1,000 ML .Q10H 10/07 0615 DC 10/07 IV 10/07 1614 0614 Heparin Sodium 5,000 UNIT .STK-MED ONE 10/07 1801 DC (Porcine) IV 10/07 1802 Levothyroxine Sodium 12.5 MCG DAILY 10/08 0900 IV Morphine Sulfate 2 MG Q4 HRS NEEDED PRN 10/07 1830 10/07 IV 2215 Morphine Sulfate 2 MG ONCE ONE 10/07 1700 RI 10/07 IV 10/07 1701 1748 Morphine Sulfate 2 MG ONCE ONE 10/07 1315 DC 10/07 IV 10/07 1316 1321 Non-Formulary 0 SEE ADMIN CRITERIA 10/07 1330 CAN Medication ANY Nystatin 5 ML 4 TIMES/DAY 10/07 2100 10/07 PO 2214 Nystatin 1 BROWN BID PRN 10/07 2000 10/07 TOP 2214 Ondansetron HCl 4 MG Q8P PRN 10/06 1845 AC IV Oxycodone HCl 5 MG Q6P PRN 10/07 1230 DC PO Pantoprazole Sodium 40 MG DAILY 10/07 2045 10/08 IV 0818 Senna/Docusate Sodium 2 TAB DAILY PRN 10/08 1015 AC PO Sodium Chloride 1,000 ML Q13H 10/07 2330 10/07 IV 2340 Sodium Chloride 1,000 ML Q13H 10/07 0100 RI 10/07 IV 0059 Impression/Plan Impression/Problem List Impression: Ms Russo is a 76-year-old woman with PMHx of 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 Montoya), coronary artery disease status post stents, type 2 diabetes, hypothyroidism hyperlipidemia, hypertension who was brought to the hospital after she was found to have severe back pain and altered mental status and found to have had hypoglycemia upto 22 mg/dl at the time of presentation which could have resulted in altered mentation. She was transferred to ICU for management of hypoglycemia and altered mental status At the time of admission vitals 98.3, pulse rate 84, respiration 22, blood pressure 109/53, 100% on room air. LABS WBC 17.5 (10/06)-->15.6(10/07) Hemoglobin 10.5--8.8 MCV 75.7 Platelet 424 (09/25)-->178 (09/27)--> 115 (09/28)-->80 09/29)-->88 (10/06)-->58 (10/07) Sodium 132-->132 ( chronic ) Potassium 3.9(10/06)-->3.3 BUN 22, creatinine 0.7 Glucose 22 (10/06) Insulin level 46.5(10/06) Lactic acid 1.7 Calcium 7.5 (10/06) corrected calcium 9.52. INR 1.55, PTT 41, fibrinogen activity 367. Chest x-ray: Stable pattern nodules throughout the right and left lung compatible with a history of pulmonary metastatic disease. No superimposed acute process. Low lung volumes. Head CT: Scattered chronic small vessel ischemic changes within the periventricular white matter. Otherwise unremarkable examination. No evidence of acute territorial infarct or hemorrhage. CT chest, abdomen pelvis without IV contrast- 1. Redemonstration of the rectal mass. Prominent adjacent perirectal lymph nodes are again noted as well. 2. No significant change in the appearance of bilateral pulmonary nodules consistent with metastatic disease. 3. Increased prominence of diffuse hepatic masses consistent with metastatic disease. Increase in small volume ascites. 4. No new consolidation in the lungs. No evidence of pulmonary edema. 5. There is no free air in the abdomen to suggest perforation. Venous Doppler upper extremity:Occlusive venous thrombus involving the right basilic and right cephalic veins. Lumbar spine MRI With and without sowmya : - This is a limited motion degraded study. There is no evidence of spinal metastatic disease. No enhancing epidural masses. No acute fractures. - Mild to moderate spondylosis at the L3-L4, L4-L5, and L5-S1 levels. There is no severe central canal stenosis and there is no severe foraminal stenosis within the lumbar spine. Assessment and plan Etiology for her acute change in mental status is likely due to hypoglycemia, likely secondary to sulfonylurea use or metastasis to liver. Since she does not have any significant renal dysfunction, and has been on sulfonylureas for a while, it seems unlikely that it could be due to sulfonylureas. Other oral hypoglycemics that she is currently on are not known to be a reason for hypoglycemia. The treatment for sulfonyl induced hypoglycemia ideally results within first 24-48 hours. Other etiologies such as neuroendocrine cells from GI tract metastasizing to liver, or decreased gluconeogenesis ability of liver are likely. Elevated insulin level, makes me think that intact beta cells are responsible for the secretion, and limited gluconeogenic reserve is possible given his liver mets. Given the history of cancer, would likely have higher glucose demand secondary to Warburg effect. Problem list: #1 hypoglycemia #2 back pain #3 hyponatremia-chronic #4 thrombocytopenia, rule out heparin-induced thrombocytopenia #5 right upper extremity venous thrombus #6 metabolic encephalopathy #7 anemia-iron deficiency anemia and anemia of chronic disease #8 metastatic rectal cancer with metastases to liver and lung #9 leukocytosis Plan: Respiratory: * Continue supplemental oxygen to keep oxygen saturation above 92% * Continue to monitor for any worsening respiratory status, given metastasis to the lungs. * Empiric antibiotics, if she has any fever or worsening leukocytosis. * Lower respiratory cultures. Infectious: Chronic Leukocytosis * Monitor leukocytosis, which could be reactive at this time. * No antibiotics at this time are indicated. * Check urinalysis, urine culture-however patient refused Circulatory/CVS: Borderline hypotension * Continue to monitor vitals every hourly. * Hold antihypertensives at this time. * Takes quinapril at home for hypertension, will hold the medication given her borderline blood pressure 90/50 * Will provide adequate hydration Hematology: Anemia * Guaiac positive stools, given history of rectal cancer and recent surgery. Thrombocytopenia Change in platelet count-thrombocytopenia that was noted at the time of admission, with normal platelet count prior to her hospital admission which was around 7-10 days ago, with more than 50% drop in platelets, and thrombosis makes us think that she might have developed heparin-induced thrombocytopenia, which should be investigated. * For thrombocytopenia, started argatroban after discussing risks versus benefits with the patient's family. * Consider long-term anticoagulation, if the patient's family wishes. * Continue argatroban drip with PTT goal 55 - 100 * Follow-up heparin-induced thrombocytopenia panel. * No heparin products at this time. Metabolic: Hypoglycemia she was admitted to ICU for severe hypoglycemia with glucose leve in the 20s. When she was in rehab, she was on Janumet, Jardiance, glimepiride and Humalog. As per her daughter, her po intake has been poor. she was on 10% dextrose drip. Her random cortisol was 24.3. But her insulin level was 46.5. patient received Octrotide at around 2 am. Since then, her glucose level has been more stable. * The underlying caueses of severe hypoglycemia-- poor intake, sulfonyureas, extensive metastatic lesions and liver dysfunction * D10 dextrose drip was discontinued given her serum glucose 135 * No further requirements for octreotide or glucagon * Blood glucose maintaining at stable levels * Will monitor FSG every 2-4 hours chronic hyponatremia she has moderate hyponatremia that is chronic and associated with no symptoms/ no intracranial pathology * 127- 132 * Continue to monitor sodium level * Will treat aggressively if sodium drops below 120 with the symptoms headache, fatigue, nausea, vomiting, gait disturbances, confusion. -------- Alimentary: If she is not able to take anything p.o., would consider IV medications in her. Refusing oral medications Poor oral intake ----- Neurology: * Monitor for an acute altered mental changes. * Seizure precautions. * Use morphine 2 mg every 4 hourly, discussed with the family about side effects. stage IV rectal cancer with liver and lung metastasis status post colectomy and colostomy * History of rectal cancer, would need a discussion about goals of care * Continue to monitor abnormal liver chemistries. * Liver biopsy, if the patient's family would like to pursue further. * No radiation or systemic chemotherapy at this time until she begins functionality. * palliative specialist on board Continue home medications Hypothyroidism continue levothyroxine 12.5 mcg iv-refusing oral levothyroxine 25 Hyperlipidemia -stopped Lipitor History of diabetes mellitus Accu-Cheks. Hold home meds given hypoglycemia Hypertension hold home medication given hypotension DVT prophylaxis: Subcutaneous heparin has been discontinued. Alps for now. Housekeeping ICU #1 Central line- none #2 Arterial line- none #3 Blake catheter- none ( incontinent ) #4 Rectal tube - none #5 NG tube - none #6 IV/peripheral line- yes. 10/07/17 #7 IV drips- Argatroban ? #8 Vent settings: none #9 pressors: none Problem List: 1. Multiple lesions of metastatic malignancy 2. Thrombocytopenia 3. Metastatic disease 4. Intractable pain 5. Colostomy in place 6. Rectal carcinoma 7. Metastases to the liver 8. Rectal mass Pain Ratin Tomorrow's Labs & Rationales: cbc icu bundle Plan DVT/Prophylaxis: mechanical, pharmacological Chapo ALBARADO,[facility] 10/08/17 1056: Attending MD Review Statement Attending Sign Off Attending Cosign Statement: I have: examined this patient, reviewed aval EMR data, personally reviewd images, discussd w/resident/PA/SPECIAL DISTRIBUTION CLERK, discussed mgmt plan w/nicolle, discussed mgmt plan w/CM, discussed mgmt plan w/pt, agreed w/resident/PA/SPECIAL DISTRIBUTION CLERK, amended to note. Other Findings: Patient with metastatic cancer, Multiple issues as noted above. Agree with above. Family at the bedside and other family members pending. Issues include Terminal rectal cancer Worsening performance status Thrombocytopenia heparin-induced thrombocytopenia workup ongoing now on argatroban Hypoglycemia being managed by endocrine, stable, on octreotide Upper extremity DVT RECOMMENDATION Continue current therapy Watch sugars Continue current anticoagulation Continue levothyroxine probably can be switched to by mouth ask endocrine Aggressive bowel regimen Pain medication control only if needed Discontinue atorvastatin Goals of care needs to be addressed family to arrive palliative consult was noted
--- NOTE | 2017-10-08 12:49 | PN- Diabetes ---
Assessment/Plan Diabetes Assessment: Ms. Russo is a 76-year-old female with metastatic rectal cancer s/p diverting colostomy, HTN, Hypothyroidism, coronary artery disease s/p stents, DM type 2 and obesity who was admitted to ICU for severe hypoglycemia with glucose leve in the 20s. The underlying caueses of severe hypoglycemia-- poor intake, sulfonyureas, extensive metastatic lesions and liver dysfunction, etc. She received Octreotide on 10/07. Her glucose level has been stable. She has been off on IVF. Her FSGs were 170, 184, 181, 157 and 146. Plan: encourage po intake; monitor FSGs; monitor electrolytes; hold off on antidiabetic medicationat this point. Subjective Subjective: She still appears weak. Objective Last 24 Hrs of Vital Signs/I&O Vital Signs Date Time Temp Pulse Resp B/P B/P Pulse O2 O2 Flow FiO2 Mean Ox Delivery Rate 10/08 0400 98 Nasal 2.0L Cannula 10/08 0000 95 Nasal 2.0L Cannula 10/08 0000 99.1 96 20 90/50 95 Nasal 2.0L Cannula 10/07 2000 95 Nasal 2.0L Cannula 10/07 1600 98 Nasal 2.0L Cannula 10/07 1600 98.0 80 20 140/70 98 Nasal 2.0L Cannula Intake & Output 10/08 1600 10/08 0800 10/08 0000 Intake Total 0 1206 Output Total 0 Balance 0 1206 Intake, IV 1206 Intake, Oral 0 0 Number 0 Bowel Movements Output, Stool 0 Patient 203 lb Weight Weight Bed scale Measurement Method Findings Pertinent Lab/Tha Results: Laboratory Tests 10/08 10/08 10/08 0730 0340 0045 Chemistry Sodium (137 - 145 mmol/L) 127 L Potassium (3.5 - 5.1 mmol/L) 4.9 Chloride (98 - 107 mmol/L) 95 L Carbon Dioxide (22 - 30 mmol/L) 23 Anion Gap (5 - 16) 9 BUN (7 - 17 mg/dL) 24 H Creatinine (0.5 - 1.0 mg/dL) 0.8 Estimated GFR (>60 ml/min) > 60 Glucose (65 - 99 mg/dL) 135 H Calcium (8.4 - 10.2 mg/dL) 6.8 L Phosphorus (2.5 - 4.5 mg/dL) 4.0 Magnesium (1.6 - 2.3 mg/dL) 1.7 Total Bilirubin (0.2 - 1.3 mg/dL) 1.0 AST (14 - 36 U/L) 399 H ALT (9 - 52 U/L) 80 H Albumin (3.5 - 5.0 g/dL) 1.7 L Coagulation PT (9.4 - 12.5 SEC) 32.8 H INR (0.90 - 1.19) 2.98 H APTT (25 - 37 SEC) 70 H 112 *H > 120 *H Hematology CBC w Diff NO MAN DIFF REQ WBC (4.8 - 10.8 /CUMM) 17.8 H RBC (4.20 - 5.40 /CUMM) 3.72 L Hgb (12.0 - 16.0 G/DL) 8.9 L Hct (37 - 47 %) 28.0 L MCV (81.0 - 99.0 FL) 75.3 L MCH (27.0 - 31.0 PG) 24.0 L MCHC (33.0 - 37.0 G/DL) 31.9 L RDW (11.5 - 14.5 %) 23.7 H Plt Count (130 - 400 /CUMM) 79 L MPV (7.4 - 10.4 FL) 9.5 Gran % (42.2 - 75.2 %) 81.2 H Lymphocytes % (20.5 - 51.1 %) 12.6 L Monocytes % (1.7 - 9.3 %) 5.7 Eosinophils % (0 - 5 %) 0.3 Basophils % (0.0 - 2.0 %) 0.2 Absolute Granulocytes (1.4 - 6.5 /CUMM) 14.4 H Absolute Lymphocytes (1.2 - 3.4 /CUMM) 2.2 Absolute Monocytes (0.10 - 0.60 /CUMM) 1.0 H Absolute Eosinophils (0.0 - 0.7 /CUMM) 0.1 Absolute Basophils (0.0 - 0.2 /CUMM) 0 10/07 1330 Immunology Heparin-induced Plt Ab Pending Heparin-PF4 AB OD Pending
[2017-10-08 16:00] VITALS: BP 110/60
[2017-10-09] VITALS: BP 120/80
[2017-10-09 00:58] LABS: PTT 81 SEC (25-37)
[2017-10-09 04:56] LABS: ABSOLUTE BASOPHIL COUNT 0 /CUMM (0.0-0.2); ABSOLUTE EOSINOPHIL COUNT 0.1 /CUMM (0.0-0.7); ABSOLUTE GRANULOCYTE CT 13.2 /CUMM (1.4-6.5); ABSOLUTE LYMPH COUNT 2.9 /CUMM (1.2-3.4); ABSOLUTE MONOCYTE COUNT 1.1 /CUMM (0.10-0.60); BASOPHIL % 0 % (0.0-2.0); EOSINOPHIL % 0.3 % (0-5); GRANULOCYTE % 76.8 % (42.2-75.2); MEAN CORPUSCULAR HGB 24.1 PG (27.0-31.0); MEAN CORPUSCULAR HGB CONC 31.9 G/DL (33.0-37.0); MEAN CORPUSCULAR VOLUME 75.5 FL (81.0-99.0); MEAN PLATELET VOLUME 8.3 FL (7.4-10.4); RBC DISTRIBUTION WIDTH 23.6 % (11.5-14.5); RED BLOOD CELL CT 3.85 /CUMM (4.20-5.40); WHITE BLOOD CELL COUNT 17.2 /CUMM (4.8-10.8)
[2017-10-09 04:57] LABS: PLATELET COUNT 136 /CUMM (130-400)
[2017-10-09 05:13] LABS: PTT 77 SEC (25-37)
[2017-10-09 05:18] LABS: PT 52.8 SEC (9.4-12.5)
[2017-10-09 08:00] VITALS: BP 116/50
--- NOTE | 2017-10-09 09:26 | PN- CRCU ---
Heather Mota 10/09/17 0925: Subjective HPI/Critical Care Issues: #1 hypoglycemia #2 back pain #3 hyponatremia-chronic #4 thrombocytopenia, rule out heparin-induced thrombocytopenia #5 right upper extremity venous thrombus #6 metabolic encephalopathy #7 anemia-iron deficiency anemia and anemia of chronic disease #8 metastatic rectal cancer with metastases to liver and lung #9 leukocytosis 24 hour events Patient was seen and examined this morning. She is awake and alert and asking for something to eat. Her pressure to remain stable most of the time but had an episode of blood sugars dropped to 69 but she was not on any dextrose then. She remained afebrile and her vital signs were within normal range. Labs were significant for WBC count 17.2, hemoglobin 9.3, hematocrit 29.0, platelet count 136. HIT panel is still pending Objective Current Medications: Current Medications Sig/Rose Start time Last Medication Dose Route Stop Time Status Admin Argatroban 250 MG Q24H 10/07 1345 10/08 Sodium Chloride 250 ML IV 1809 Dextrose 25 GM ONCE ONE 10/08 2114 VA 10/08 IV 10/09 2115 2122 Dextrose/Sodium 1,000 ML Q8H 10/09 1030 10/09 Chloride IV 1030 Dextrose/Sodium 1,000 ML Q13H 10/08 2130 DC Chloride IV Levothyroxine Sodium 12.5 MCG DAILY 10/08 0900 10/09 IV 1031 Magnesium Sulfate 1 GM ONCE ONE 10/09 0600 DC 10/09 Dextrose/Water 100 ML IV 10/09 0959 0632 Morphine Sulfate 2 MG Q1 PRN 10/09 0348 AC IV Morphine Sulfate 4 MG .STK-MED ONE 10/08 1506 DC IM 10/08 1507 Morphine Sulfate 2 MG Q4 HRS NEEDED PRN 10/07 1830 VA 10/09 IV 0324 Nystatin 5 ML 4 TIMES/DAY 10/07 2100 10/09 PO 0929 Nystatin 1 BROWN BID PRN 10/07 2000 10/07 TOP 2214 Ondansetron HCl 4 MG Q8P PRN 10/06 1845 AC IV Oxycodone HCl 5 MG Q3P PRN 10/09 0400 AC PO Pantoprazole Sodium 40 MG DAILY 10/07 2045 AC 10/09 IV 0928 Polyethylene Glycol 17 GM DAILY PRN 10/08 1145 AC PO Senna/Docusate Sodium 2 TAB DAILY PRN 10/08 1015 AC PO Sodium Chloride 1,000 ML Q13H 10/09 0400 DC 10/09 IV 10/09 1659 0403 Sodium Chloride 1,000 ML Q13H 10/07 2330 DC 10/08 IV 1600 Vital Signs & I&O Last 24 Hrs of Vitals and I&O: Vital Signs Date Time Temp Pulse Resp B/P B/P Pulse O2 O2 Flow FiO2 Mean Ox Delivery Rate 10/09 0800 96 Nasal 2.0L Cannula 10/09 0800 97.0 88 20 116/50 96 Nasal 2.0L Cannula 10/09 0400 98 Nasal 2.0L Cannula 10/09 0000 96 Nasal 2.0L Cannula 10/09 0000 97.9 96 16 120/80 96 Nasal 2.0L Cannula 10/08 2200 95 Nasal 2.0L Cannula 10/08 1600 96 Nasal 2.0L Cannula 10/08 1600 98.0 102 16 110/60 92 Nasal 2.0L Cannula 10/08 1200 96 Nasal 3.5L Cannula Intake & Output 10/09 1600 10/09 0800 10/09 0000 Intake Total 661 613.6 Output Total Balance 661 613.6 Intake, IV 561 613.6 Intake, Oral 100 Number 1 1 Bowel Movements Patient 208 lb Weight Weight Bed scale Measurement Method Exam General Appearance: no apparent distress, alert, awake Head: atraumatic Neck: supple Respiratory: chest non-tender, no respiratory distress Cardiovascular: regular rate/rhythm Abdomen: soft, non-tender Back: vertebral tenderness Extremities: normal inspection Results Last 24 Hrs of Lab Results: Laboratory Tests 10/09/17 0500: APTT Cancelled 10/09/175: Anion Gap 7, Estimated GFR > 60, Glucose 68, Calcium 7.0 L, Phosphorus 3.4, Magnesium 1.7, Total Bilirubin 1.0, AST 341 H, ALT 78 H, Albumin 1.7 L, PT 52.8 *H, INR 4.77 *H, APTT 77 H, CBC w Diff NO MAN DIFF REQ, RBC 3.85 L, MCV 75.5 L, MCH 24.1 L, MCHC 31.9 L, RDW 23.6 H, MPV 8.3, Gran % 76.8 H, Lymphocytes % 16.6 L, Monocytes % 6.3, Eosinophils % 0.3, Basophils % 0, Absolute Granulocytes 13.2 H, Absolute Lymphocytes 2.9, Absolute Monocytes 1.1 H, Absolute Eosinophils 0.1, Absolute Basophils 0 Impression/Plan Impression/Plan Impression/Plan: Ms Russo is a 76-year-old woman with PMHx of 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 Montoya), coronary artery disease status post stents, type 2 diabetes, hypothyroidism hyperlipidemia, hypertension who was brought to the hospital after she was found to have severe back pain and altered mental status and found to have had hypoglycemia upto 22 mg/dl at the time of presentation which could have resulted in altered mentation. She was transferred to ICU for management of hypoglycemia and altered mental status. Assessment and plan Etiology for her acute change in mental status is likely due to hypoglycemia, likely secondary to sulfonylurea use or metastasis to liver. Since she does not have any significant renal dysfunction, and has been on sulfonylureas for a while, it seems unlikely that it could be due to sulfonylureas. Other oral hypoglycemics that she is currently on are not known to be a reason for hypoglycemia. The treatment for sulfonyl induced hypoglycemia ideally results within first 24-48 hours. Other etiologies such as neuroendocrine cells from GI tract metastasizing to liver, or decreased gluconeogenesis ability of liver are likely. Elevated insulin level, makes me think that intact beta cells are responsible for the secretion, and limited gluconeogenic reserve is possible given his liver mets. Given the history of cancer, would likely have higher glucose demand secondary to [place] effect. Plan: Respiratory: * Continue supplemental oxygen to keep oxygen saturation above 92% * Continue to monitor for any worsening respiratory status, given metastasis to the lungs. * Empiric antibiotics, if she has any fever or worsening leukocytosis. * Lower respiratory cultures. Infectious: Chronic Leukocytosis * Monitor leukocytosis, which could be reactive at this time. * No antibiotics at this time are indicated. * Check urinalysis, urine culture-however patient refused Circulatory/CVS: Borderline hypotension * Continue to monitor vitals every hourly. * Hold antihypertensives at this time. * Takes quinapril at home for hypertension, will hold the medication given her borderline blood pressure 90/50 * Will provide adequate hydration Hematology: Anemia * Guaiac positive stools, given history of rectal cancer and recent surgery. 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 * For thrombocytopenia, started argatroban after discussing risks versus benefits with the patient's family. * Consider long-term anticoagulation, if the patient's family wishes. * Continue argatroban drip with PTT goal 55 - 100 * Follow-up heparin-induced thrombocytopenia panel. * No heparin products at this time. Metabolic: Hypoglycemia she was admitted to ICU for severe hypoglycemia with glucose leve in the 20s. When she was in rehab, she was on Janumet, Jardiance, glimepiride and Humalog. As per her daughter, her po intake has been poor. she was on 10% dextrose drip. Her random cortisol was 24.3. But her insulin level was 46.5. patient received Octrotide on October 07 . Since then, her glucose level has been more stable. * The underlying caueses of severe hypoglycemia-- poor intake, sulfonyureas, extensive metastatic lesions and liver dysfunction * As her pressure does drop to 69 this morning at that time she was receiving normal saline. We will change her fluids to D5 normal saline at rate 125 for now. We will check her blood sugars every 2 hours for 4-6 [place] to check for blood sugar stabilization and then we will change to every 4 hours. * No further requirements for octreotide or glucagon * Blood glucose maintaining at stable levels * Will monitor FSG every 2-4 hours chronic hyponatremia she has moderate hyponatremia that is chronic and associated with no symptoms/ no intracranial pathology * 127- 132 * Continue to monitor sodium level * Will treat aggressively if sodium drops below 120 with the symptoms headache, fatigue, nausea, vomiting, gait disturbances, confusion. -------- Alimentary: Patient was tolerating clear liquids well and we will change to full liquid and later to regular diet if she tolerates. ----- Neurology: * Monitor for an acute altered mental changes. * Seizure precautions. * Use morphine 2 mg every 4 hourly, discussed with the family about side effects. stage IV rectal cancer with liver and lung metastasis status post colectomy and colostomy * History of rectal cancer, would need a discussion about goals of care * Continue to monitor abnormal liver chemistries. * Liver biopsy, if the patient's family would like to pursue further. * No radiation or systemic chemotherapy at this time until she begins functionality. * palliative specialist on board Continue home medications Hypothyroidism continue levothyroxine 12.5 mcg iv-refusing oral levothyroxine 25 Hyperlipidemia -stopped Lipitor History of diabetes mellitus Accu-Cheks. Hold home meds given hypoglycemia Hypertension hold home medication given hypotension DVT prophylaxis: Subcutaneous heparin has been discontinued. Alps for now. Housekeeping ICU #1 Central line- none #2 Arterial line- none #3 Blake catheter- none ( incontinent ) #4 Rectal tube - none #5 NG tube - none #6 IV/peripheral line- yes. 10/07/17 #7 IV drips- Argatroban ? #8 Vent settings: none #9 pressors: none Dennis Hunter MD 10/10/17 1713: Attending MD Review Statement Attending Statement Attending MD Statement: examined this patient, discuss w/resident/PA/SAS DEVELOPER, agreed w/resident/PA/SAS DEVELOPER, reviewed EMR data (avail), amended to note Attending Assessment/Plan: The patient was seen and discussed with house staff. Patient has improved and went to radiation therapy today. Appreciate endocrinology follow-up. Will be full code as per family wishes. OK to transfer to general medical floor.
--- NOTE | 2017-10-09 11:49 | PN- Pulmonary ---
Subjective HPI/Critical Care Issues: Sleeping this am still refusing interventions at times Otherwise stable Objective Current Medications: Current Medications Sig/Rose Start time Last Medication Dose Route Stop Time Status Admin Argatroban 250 MG Q24H 10/07 1345 10/08 Sodium Chloride 250 ML IV 1809 Dextrose 25 GM ONCE ONE 10/08 2114 DC 10/08 IV 10/08 211 2122 Dextrose/Sodium 1,000 ML Q8H 10/09 1030 AC 10/09 Chloride IV 1030 Dextrose/Sodium 1,000 ML Q13H 10/08 2130 DC Chloride IV Levothyroxine Sodium 12.5 MCG DAILY 10/08 0900 AC 10/09 IV 1031 Magnesium Sulfate 1 GM ONCE ONE 10/09 0600 DC 10/09 Dextrose/Water 100 ML IV 10/09 0959 0632 Morphine Sulfate 2 MG Q1 PRN 10/09 0348 AC IV Morphine Sulfate 4 MG .STK-MED ONE 10/08 1506 DC IM 10/08 1507 Morphine Sulfate 2 MG Q4 HRS NEEDED PRN 10/07 1830 IL 10/09 IV 0324 Nystatin 5 ML 4 TIMES/DAY 10/07 2100 AC 10/09 PO 0929 Nystatin 1 BROWN BID PRN 10/07 2000 10/07 TOP 2214 Ondansetron HCl 4 MG Q8P PRN 10/06 1845 AC IV Oxycodone HCl 5 MG Q3P PRN 10/09 0400 AC PO Pantoprazole Sodium 40 MG DAILY 10/07 2045 AC 10/09 IV 0928 Polyethylene Glycol 17 GM DAILY PRN 10/08 1145 AC PO Senna/Docusate Sodium 2 TAB DAILY PRN 10/08 1015 AC PO Sodium Chloride 1,000 ML Q13H 10/09 0400 DC 10/09 IV 10/09 1659 0403 Sodium Chloride 1,000 ML Q13H 10/07 2330 DC 10/08 IV 1600 Vital Signs & I&O Last 24 Hrs of Vitals and I&O: Vital Signs Date Time Temp Pulse Resp B/P B/P Pulse O2 O2 Flow FiO2 Mean Ox Delivery Rate 10/09 0800 96 Nasal 2.0L Cannula 10/09 0800 97.0 88 20 116/50 96 Nasal 2.0L Cannula 10/09 0400 98 Nasal 2.0L Cannula 10/09 0000 96 Nasal 2.0L Cannula 10/09 0000 97.9 96 16 120/80 96 Nasal 2.0L Cannula 10/08 2200 95 Nasal 2.0L Cannula 10/08 1600 96 Nasal 2.0L Cannula 10/08 1600 98.0 102 16 110/60 92 Nasal 2.0L Cannula 10/08 1200 96 Nasal 3.5L Cannula Intake & Output 10/09 1600 10/09 0800 10/09 0000 Intake Total 661 613.6 Output Total Balance 661 613.6 Intake, IV 561 613.6 Intake, Oral 100 Number 1 1 Bowel Movements Patient 208 lb Weight Weight Bed scale Measurement Method Laboratory Tests 10/09 10/09 10/08 0500 0415 0730 Chemistry Sodium (137 - 145 mmol/L) 133 L Potassium (3.5 - 5.1 mmol/L) 4.0 Chloride (98 - 107 mmol/L) 101 Carbon Dioxide (22 - 30 mmol/L) 25 Anion Gap (5 - 16) 7 BUN (7 - 17 mg/dL) 19 H Creatinine (0.5 - 1.0 mg/dL) 0.6 Estimated GFR (>60 ml/min) > 60 Glucose (65 - 99 mg/dL) 68 Calcium (8.4 - 10.2 mg/dL) 7.0 L Phosphorus (2.5 - 4.5 mg/dL) 3.4 Magnesium (1.6 - 2.3 mg/dL) 1.7 Total Bilirubin (0.2 - 1.3 mg/dL) 1.0 AST (14 - 36 U/L) 341 H ALT (9 - 52 U/L) 78 H Albumin (3.5 - 5.0 g/dL) 1.7 L Coagulation PT (9.4 - 12.5 SEC) 52.8 *H 32.8 H INR (0.90 - 1.19) 4.77 *H 2.98 H APTT (25 - 37 SEC) Cancelled 77 H 70 H Hematology CBC w Diff NO MAN DIFF REQ WBC (4.8 - 10.8 /CUMM) 17.2 H RBC (4.20 - 5.40 /CUMM) 3.85 L Hgb (12.0 - 16.0 G/DL) 9.3 L Hct (37 - 47 %) 29.0 L MCV (81.0 - 99.0 FL) 75.5 L MCH (27.0 - 31.0 PG) 24.1 L MCHC (33.0 - 37.0 G/DL) 31.9 L RDW (11.5 - 14.5 %) 23.6 H Plt Count (130 - 400 /CUMM) 136 MPV (7.4 - 10.4 FL) 8.3 Gran % (42.2 - 75.2 %) 76.8 H Lymphocytes % (20.5 - 51.1 %) 16.6 L Monocytes % (1.7 - 9.3 %) 6.3 Eosinophils % (0 - 5 %) 0.3 Basophils % (0.0 - 2.0 %) 0 Absolute Granulocytes (1.4 - 6.5 /CUMM) 13.2 H Absolute Lymphocytes (1.2 - 3.4 /CUMM) 2.9 Absolute Monocytes (0.10 - 0.60 /CUMM) 1.1 H Absolute Eosinophils (0.0 - 0.7 /CUMM) 0.1 Absolute Basophils (0.0 - 0.2 /CUMM) 0 10/08 10/08 10/08 0340 0045 0020 Chemistry Sodium (137 - 145 mmol/L) 127 L Potassium (3.5 - 5.1 mmol/L) 4.9 Chloride (98 - 107 mmol/L) 95 L Carbon Dioxide (22 - 30 mmol/L) 23 Anion Gap (5 - 16) 9 BUN (7 - 17 mg/dL) 24 H Creatinine (0.5 - 1.0 mg/dL) 0.8 Estimated GFR (>60 ml/min) > 60 Glucose (65 - 99 mg/dL) 135 H Calcium (8.4 - 10.2 mg/dL) 6.8 L Phosphorus (2.5 - 4.5 mg/dL) 4.0 Magnesium (1.6 - 2.3 mg/dL) 1.7 Total Bilirubin (0.2 - 1.3 mg/dL) 1.0 AST (14 - 36 U/L) 399 H ALT (9 - 52 U/L) 80 H Albumin (3.5 - 5.0 g/dL) 1.7 L Coagulation APTT (25 - 37 SEC) 112 *H > 120 *H 81 H Hematology CBC w Diff NO MAN DIFF REQ WBC (4.8 - 10.8 /CUMM) 17.8 H RBC (4.20 - 5.40 /CUMM) 3.72 L Hgb (12.0 - 16.0 G/DL) 8.9 L Hct (37 - 47 %) 28.0 L MCV (81.0 - 99.0 FL) 75.3 L MCH (27.0 - 31.0 PG) 24.0 L MCHC (33.0 - 37.0 G/DL) 31.9 L RDW (11.5 - 14.5 %) 23.7 H Plt Count (130 - 400 /CUMM) 79 L MPV (7.4 - 10.4 FL) 9.5 Gran % (42.2 - 75.2 %) 81.2 H Lymphocytes % (20.5 - 51.1 %) 12.6 L Monocytes % (1.7 - 9.3 %) 5.7 Eosinophils % (0 - 5 %) 0.3 Basophils % (0.0 - 2.0 %) 0.2 Absolute Granulocytes (1.4 - 6.5 /CUMM) 14.4 H Absolute Lymphocytes (1.2 - 3.4 /CUMM) 2.2 Absolute Monocytes (0.10 - 0.60 /CUMM) 1.0 H Absolute Eosinophils (0.0 - 0.7 /CUMM) 0.1 Absolute Basophils (0.0 - 0.2 /CUMM) 0 10/07 1330 Immunology Heparin-induced Plt Ab Pending Heparin-PF4 AB OD Pending Microbiology Date/Time Procedure - Status Source Growth 10/07 2239 Surveillance Culture - COMP UPPER RESP 10/07 2239 Surveillance Culture - COMP GI Impression/Plan Impression/Plan Impression/Plan: General Appearance: mild distress Head: atraumatic Eyes: Bilateral: PERRL, EOMI, pale conjunctivae. Ears, Nose, Throat: normal pharynx Neck: normal inspection, supple Respiratory: normal breath sounds Cardiovascular: regular rate/rhythm Peripheral Pulses: 2+ radial (R), 2+ radial (L) Gastrointestinal: normal bowel sounds, soft, colostomy bag in place Rectal: heme positive stool Back: normal inspection Extremities: pedal edema Neurologic/Psych: awake Cranial Nerves: normal hearing, normal speech, PERRL Reflexes: 2+: knee (R), knee (L). Patient with metastatic cancer, Issues include Terminal rectal cancer Worsening performance status Thrombocytopenia heparin-induced thrombocytopenia workup ongoing now on argatroban Hypoglycemia being managed by endocrine, stable, on octreotide Upper extremity DVT Electrolyte abnormality Anemia SIg pain RECOMMENDATION Continue current therapy Watch sugars Continue current anticoagulation Continue levothyroxine probably can be switched to by mouth ask endocrine Aggressive bowel regimen Pain medication control only if needed IVF Goals of care needs to be addressed family to decide palliative consult was noted
[2017-10-09 12:00] VITALS: BP 130/50
--- NOTE | 2017-10-09 12:33 | PN- Diabetes ---
Assessment/Plan Diabetes Assessment: Ms. Russo is a 76-year-old female with metastatic rectal cancer s/p diverting colostomy, HTN, Hypothyroidism, coronary artery disease s/p stents, DM type 2 and obesity who was admitted to ICU for severe hypoglycemia with glucose leve in the 20s. The underlying caueses of severe hypoglycemia-- poor intake, sulfonyureas, extensive metastatic lesions and liver dysfunction, etc. She received Octreotide on 10/07. Her FSG was down to 69 again last night. She was restarted on D5 NS at 125 ml/ hour. Plan: continue the current IVF; encourage po intake; continue monitoring FSGs. will follow. Subjective Subjective: Her po intake is poor. Objective Last 24 Hrs of Vital Signs/I&O Vital Signs Date Time Temp Pulse Resp B/P B/P Pulse O2 O2 Flow FiO2 Mean Ox Delivery Rate 10/09 0800 96 Nasal 2.0L Cannula 10/09 0800 97.0 88 20 116/50 96 Nasal 2.0L Cannula 10/09 0400 98 Nasal 2.0L Cannula 10/09 0000 96 Nasal 2.0L Cannula 10/09 0000 97.9 96 16 120/80 96 Nasal 2.0L Cannula 10/08 2200 95 Nasal 2.0L Cannula 10/08 1600 96 Nasal 2.0L Cannula 10/08 1600 98.0 102 16 110/60 92 Nasal 2.0L Cannula Intake & Output 10/09 1600 10/09 0800 10/09 0000 Intake Total 661 613.6 Output Total Balance 661 613.6 Intake, IV 561 613.6 Intake, Oral 100 Number 1 1 Bowel Movements Patient 208 lb Weight Weight Bed scale Measurement Method Findings Pertinent Lab/Tha Results: Laboratory Tests 10/09 10/09 0500 0415 Chemistry Sodium (137 - 145 mmol/L) 133 L Potassium (3.5 - 5.1 mmol/L) 4.0 Chloride (98 - 107 mmol/L) 101 Carbon Dioxide (22 - 30 mmol/L) 25 Anion Gap (5 - 16) 7 BUN (7 - 17 mg/dL) 19 H Creatinine (0.5 - 1.0 mg/dL) 0.6 Estimated GFR (>60 ml/min) > 60 Glucose (65 - 99 mg/dL) 68 Calcium (8.4 - 10.2 mg/dL) 7.0 L Phosphorus (2.5 - 4.5 mg/dL) 3.4 Magnesium (1.6 - 2.3 mg/dL) 1.7 Total Bilirubin (0.2 - 1.3 mg/dL) 1.0 AST (14 - 36 U/L) 341 H ALT (9 - 52 U/L) 78 H Albumin (3.5 - 5.0 g/dL) 1.7 L Coagulation PT (9.4 - 12.5 SEC) 52.8 *H INR (0.90 - 1.19) 4.77 *H APTT (25 - 37 SEC) Cancelled 77 H Hematology CBC w Diff NO MAN DIFF REQ WBC (4.8 - 10.8 /CUMM) 17.2 H RBC (4.20 - 5.40 /CUMM) 3.85 L Hgb (12.0 - 16.0 G/DL) 9.3 L Hct (37 - 47 %) 29.0 L MCV (81.0 - 99.0 FL) 75.5 L MCH (27.0 - 31.0 PG) 24.1 L MCHC (33.0 - 37.0 G/DL) 31.9 L RDW (11.5 - 14.5 %) 23.6 H Plt Count (130 - 400 /CUMM) 136 MPV (7.4 - 10.4 FL) 8.3 Gran % (42.2 - 75.2 %) 76.8 H Lymphocytes % (20.5 - 51.1 %) 16.6 L Monocytes % (1.7 - 9.3 %) 6.3 Eosinophils % (0 - 5 %) 0.3 Basophils % (0.0 - 2.0 %) 0 Absolute Granulocytes (1.4 - 6.5 /CUMM) 13.2 H Absolute Lymphocytes (1.2 - 3.4 /CUMM) 2.9 Absolute Monocytes (0.10 - 0.60 /CUMM) 1.1 H Absolute Eosinophils (0.0 - 0.7 /CUMM) 0.1 Absolute Basophils (0.0 - 0.2 /CUMM) 0
[2017-10-09 16:00] VITALS: BP 120/52
[2017-10-09 22:00] VITALS: BP 134/60
[2017-10-10 05:14] LABS: ABSOLUTE BASOPHIL COUNT 0 /CUMM (0.0-0.2); ABSOLUTE EOSINOPHIL COUNT 0 /CUMM (0.0-0.7); ABSOLUTE LYMPH COUNT 1.5 /CUMM (1.2-3.4); ABSOLUTE MONOCYTE COUNT 1.2 /CUMM (0.10-0.60); BASOPHIL % 0 % (0.0-2.0); EOSINOPHIL % 0 % (0-5); GRANULOCYTE % 84.8 % (42.2-75.2); HEMATOCRIT 31.8 % (37-47); MEAN CORPUSCULAR HGB 23.8 PG (27.0-31.0); MEAN CORPUSCULAR HGB CONC 31.8 G/DL (33.0-37.0); MEAN CORPUSCULAR VOLUME 74.9 FL (81.0-99.0); MEAN PLATELET VOLUME 8.7 FL (7.4-10.4); PLATELET COUNT 177 /CUMM (130-400); RBC DISTRIBUTION WIDTH 24.2 % (11.5-14.5); RED BLOOD CELL CT 4.24 /CUMM (4.20-5.40); WHITE BLOOD CELL COUNT 17.7 /CUMM (4.8-10.8)
[2017-10-10 05:42] LABS: PTT 103 SEC (25-37)
--- NOTE | 2017-10-10 07:38 | PN- Oncology ---
Subjective Subjective: She is doing better. Mental status is improved. She states she didn't remember much of what went on since Tuesday. She is more alert today. She does have some abdominal pain especially with sitting up. Review of Systems Constitutional: Reports: malaise, weakness. Denies: chills, fever. Cardiovascular: Denies: chest pain. Respiratory: Denies: short of breath. Gastrointestinal: Reports: abdominal pain. Denies: nausea, vomiting. Genitourinary: Denies: dysuria. Neurological/Psychological: Reports: confusion. Hematologic/Endocrine: Denies: bruising, bleeding. All Other Systems: Reviewed and Negative Objective Vital Signs and I&Os Vital Signs Date Time Temp Pulse Resp B/P B/P Pulse O2 O2 Flow FiO2 Mean Ox Delivery Rate 10/10 0324 95 Nasal 2.0L Cannula 10/10 0000 95 Nasal 2.0L Cannula 10/09 2200 98.0 108 24 134/60 95 Nasal 2.0L Cannula 10/09 2000 94 Nasal 2.0L Cannula 10/09 1600 Nasal 2.0L Cannula 10/09 1600 97.4 108 20 120/52 96 Nasal 2.0L Cannula 10/09 1200 93 Nasal 2.0L Cannula 10/09 1200 97.2 106 20 130/50 93 Nasal 2.0L Cannula 10/09 0800 96 Nasal 2.0L Cannula 10/09 0800 97.0 88 20 116/50 96 Nasal 2.0L Cannula Intake & Output 10/10 0800 16 0000 04/15 1600 / 0800 10/09 0000 14 1600 Intake Total 597 721 1306.6 661 613.6 614 Output Total 100 100 0 1 Balance 096 164 7447.6 661 613.6 613 Intake, IV 415 490 867.6 561 613.6 614 Intake, Oral 200 460 600 100 Number 1 1 1 1 1 Bowel Movements Output, Stool 100 100 0 1 Patient 94.12 kg Weight Weight Bed scale Measurement Method Physical Exam: General Appearance: alert, awake, mild distress, obese Head: atraumatic Eyes: Bilateral: PERRL. Ears, Nose, Throat: normal pharynx Respiratory: no respiratory distress, quiet respiration Cardiovascular: tachycardia, no murmurs Gastrointestinal: normal bowel sounds, tenderness, LLQ colostomy in place, stoma picnk Extremities: upper and lower extremity edema Neurologic/Psych: awake, alert, oriented x 3 Lymphatic: no anterior cervical guille Current Medications: Current Medications Sig/Rose Start time Last Medication Dose Route Stop Time Status Admin Argatroban 250 MG Q24H 10/07 1345 10/09 Sodium Chloride 250 ML IV 1707 Benzonatate 100 MG TID 10/09 2100 AC 10/09 PO 2058 Dextrose/Sodium 1,000 ML Q8H 10/09 1030 AC 10/09 Chloride IV 2058 Dextrose/Sodium 1,000 ML Q13H 10/08 2130 DC Chloride IV Guaifenesin 10 ML Q6P PRN 10/09 2014 AC 10/10 PO 0524 Guaifenesin 10 ML Q4P PRN 10/09 2000 CAN PO Levothyroxine Sodium 12.5 MCG DAILY 10/08 0900 AC 10/09 IV 1031 Magnesium Sulfate 1 GM ONCE ONE 10/10 0700 AC Dextrose/Water 100 ML IV 10/10 1059 Magnesium Sulfate 1 GM ONCE ONE 10/09 0600 DC 10/09 Dextrose/Water 100 ML IV 10/09 0959 0632 Morphine Sulfate 2 MG Q1 PRN 10/09 0348 AC IV Nystatin 5 ML 4 TIMES/DAY 10/07 2100 AC 10/09 PO 205 Nystatin 1 BROWN BID PRN 10/07 2000 AC 10/07 TOP 2214 Ondansetron HCl 4 MG Q8P PRN 10/06 1845 AC IV Oxycodone HCl 5 MG Q3P PRN 10/09 0400 AC PO Pantoprazole Sodium 40 MG DAILY 10/07 2045 AC 10/09 IV 0928 Polyethylene Glycol 17 GM DAILY PRN 10/08 1145 AC PO Senna/Docusate Sodium 2 TAB DAILY PRN 10/08 1015 AC PO Sodium Chloride 1,000 ML Q13H 10/09 0400 DC 10/09 IV 10/09 1659 0403 Results Last 24 Hours of Lab Results: Laboratory Tests 10/10 0445 Chemistry Sodium (137 - 145 mmol/L) 134 L Potassium (3.5 - 5.1 mmol/L) 3.9 Chloride (98 - 107 mmol/L) 104 Carbon Dioxide (22 - 30 mmol/L) 24 Anion Gap (5 - 16) 6 BUN (7 - 17 mg/dL) 14 Creatinine (0.5 - 1.0 mg/dL) 0.5 Estimated GFR (>60 ml/min) > 60 Glucose (65 - 99 mg/dL) 193 H Calcium (8.4 - 10.2 mg/dL) 7.2 L Phosphorus (2.5 - 4.5 mg/dL) 2.8 Magnesium (1.6 - 2.3 mg/dL) 1.7 Total Bilirubin (0.2 - 1.3 mg/dL) 1.3 AST (14 - 36 U/L) 242 H ALT (9 - 52 U/L) 76 H Albumin (3.5 - 5.0 g/dL) 1.7 L Coagulation APTT (25 - 37 SEC) 103 *H Hematology CBC w Diff NO MAN DIFF REQ WBC (4.8 - 10.8 /CUMM) 17.7 H RBC (4.20 - 5.40 /CUMM) 4.24 Hgb (12.0 - 16.0 G/DL) 10.1 L Hct (37 - 47 %) 31.8 L MCV (81.0 - 99.0 FL) 74.9 L MCH (27.0 - 31.0 PG) 23.8 L MCHC (33.0 - 37.0 G/DL) 31.8 L RDW (11.5 - 14.5 %) 24.2 H Plt Count (130 - 400 /CUMM) 177 MPV (7.4 - 10.4 FL) 8.7 Gran % (42.2 - 75.2 %) 84.8 H Lymphocytes % (20.5 - 51.1 %) 8.2 L Monocytes % (1.7 - 9.3 %) 7.0 Eosinophils % (0 - 5 %) 0 Basophils % (0.0 - 2.0 %) 0 Absolute Granulocytes (1.4 - 6.5 /CUMM) 15.0 H Absolute Lymphocytes (1.2 - 3.4 /CUMM) 1.5 Absolute Monocytes (0.10 - 0.60 /CUMM) 1.2 H Absolute Eosinophils (0.0 - 0.7 /CUMM) 0 Absolute Basophils (0.0 - 0.2 /CUMM) 0 Assessment/Plan Assessment/Recommendations: Ms. 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 She was seen in radiation oncology office and was noted to be in severe pain. She was sent to [facility] for evaluation. On admission, she was noted to be somnolent and hypoglycemic. She was started on the 10% dextrose drip in addition to octreotide. Endocrinology was consulted. In addition, she was noted to have new thrombocytopenia with ana maria platelet count of 58,000. Her platelet count has significantly dropped as compared to recent admission. 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 She does have RUE DVT. HIT panel pending. She is on argatroban drip. With regard to her metastatic rectal cancer, I discussed with the patient that her performance status has to improve prior to initiation therapy. If she continues to have a poor performance status, she will not be a candidate for intensive systemic therapy. At that point, she will be a candidate for hospice with focus on comfort. Palliative care is following patient. Thrombocytopenia: -follow up HIT panel -continue Argatroban drip -monitor closely for bleeding -potential transition to DOAC (rivaroxaban/apixaban) Metastatic rectal cancer: -f/u outpatient -if worsening PS, candidate for hospice Hypoglycemia: -management as per primary and endocrinology Please call [phone] with any questions or concerns. Problem List: 1. Thrombocytopenia 2. Intractable pain 3. Rectal carcinoma 4. Metastases to the liver
--- NOTE | 2017-10-10 07:39 | PN- Housestaff ---
See Addendum Subjective Follow-up For: #1 hypoglycemia #2 back pain #3 hyponatremia-chronic #4 thrombocytopenia, rule out heparin-induced thrombocytopenia #5 right upper extremity venous thrombus #6 metabolic encephalopathy #7 anemia-iron deficiency anemia and anemia of chronic disease #8 metastatic rectal cancer with metastases to liver and lung #9 leukocytosis Complaints: pain scale (0-10) Tele-Events Since Last Visit: Tele monitoring was uneventful Subjective: Patient was seen and examined this morning. She is awake and alert and asking for something to eat. she is oriented to time place and person, able to provide history regarding her recent health events. She offers no complaint other than abdominal discomfort when she moves. She denies any fever, chills, cough, chest pain, short of breath. Colostomy bag in place. She completed her breakfast this morning. Oral intake has been improving. Sugars were improved. Vitals were stable. She is afebrile, heart rate 100, respiratory rate 24, blood pressure 134/60, saturating at 95 on 2 L. Labs were significant for WBC count 17.7, hemoglobin 10, hematocrit 30, platelet count 177. HIT panel is still pending Review of Systems Constitutional: Reports: see HPI. Objective Last 24 Hrs of Vital Signs/I&O Vital Signs Date Time Temp Pulse Resp B/P B/P Pulse O2 O2 Flow FiO2 Mean Ox Delivery Rate 10/10 08 97.6 112 30 138/62 94 Nasal 2.0L Cannula 10/10 0800 94 Nasal 2.0L Cannula 10/10 0324 95 Nasal 2.0L Cannula 10/10 0000 95 Nasal 2.0L Cannula 10/09 2200 98.0 108 24 134/60 95 Nasal 2.0L Cannula 10/09 2000 94 Nasal 2.0L Cannula 10/09 1600 Nasal 2.0L Cannula 10/09 1600 97.4 108 20 120/52 96 Nasal 2.0L Cannula Intake & Output 10/10 1600 10/10 0800 10/10 0000 Intake Total 615 950 Output Total 100 100 Balance 515 850 Intake, IV 415 490 Intake, Oral 200 460 Number 1 1 Bowel Movements Output, Stool 100 100 Physical Exam General Appearance: Alert, Oriented X3, Cooperative Other Physical Findings: Head: atraumatic Eyes: Bilateral: PERRL, EOMI, pale conjunctivae. Ears, Nose, Throat: normal pharynx Neck: normal inspection, supple Respiratory: normal breath sounds Cardiovascular: regular rate/rhythm Peripheral Pulses: 2+ radial (R), 2+ radial (L) Gastrointestinal: normal bowel sounds, soft, colostomy bag in place Rectal: heme positive stool Back: normal inspection Extremities: pedal edema Neurologic/Psych: awake Cranial Nerves: normal hearing, normal speech, PERRL Reflexes: 2+: knee (R), knee (L). Current Medications: Current Medications Sig/Rose Start time Last Medication Dose Route Stop Time Status Admin Argatroban 250 MG Q24H 10/07 1345 DC 10/09 Sodium Chloride 250 ML IV 1707 Benzonatate 100 MG TID 10/09 2100 AC 10/10 PO 1303 Dextrose/Sodium 1,000 ML Q8H 10/09 1030 DC 10/09 Chloride IV 2058 Guaifenesin 10 ML .STK-MED ONE 10/10 0513 DC PO 10/10 0514 Guaifenesin 10 ML Q6P PRN 10/09 2015 AC 10/10 PO 0524 Guaifenesin 10 ML Q4P PRN 10/09 2000 CAN PO Levothyroxine Sodium 0.025 MG DAILY 10/11 0900 AC PO Levothyroxine Sodium 12.5 MCG DAILY 10/08 0900 DC 10/10 IV 0857 Magnesium Sulfate 1 GM ONCE ONE 10/10 0700 DC 10/10 Dextrose/Water 100 ML IV 10/10 1059 0857 Morphine Sulfate 2 MG Q1 PRN 10/09 0348 DC IV Nystatin 5 ML 4 TIMES/DAY 10/07 2100 DC 10/09 PO 2058 Nystatin 1 BROWN BID PRN 10/07 2000 AC 10/07 TOP 2214 Omeprazole 40 MG DAILY AC 10/11 0700 AC PO Ondansetron HCl 4 MG Q8P PRN 10/06 1845 AC IV Oxycodone HCl 5 MG Q3P PRN 10/09 0400 AC 10/10 PO 1304 Pantoprazole Sodium 40 MG DAILY 10/07 2045 DC 10/10 IV 0856 Polyethylene Glycol 17 GM DAILY PRN 10/08 1145 AC 10/10 PO 0856 Rivaroxaban 15 MG BID 10/10 1200 AC 10/10 PO 1304 Senna/Docusate Sodium 2 TAB DAILY PRN 10/08 1015 AC PO Assessment/Plan Assessment: Ms Russo is a 76-year-old woman with PMHx of 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 Montoya), coronary artery disease status post stents, type 2 diabetes, hypothyroidism hyperlipidemia, hypertension who was brought to the hospital after she was found to have severe back pain and altered mental status and found to have had hypoglycemia upto 22 mg/dl at the time of presentation which could have resulted in altered mentation. She was transferred to ICU for management of hypoglycemia and altered mental status. Assessment and plan Etiology for her acute change in mental status is likely due to hypoglycemia, likely secondary to sulfonylurea use or metastasis to liver. Since she does not have any significant renal dysfunction, and has been on sulfonylureas for a while, it seems unlikely that it could be due to sulfonylureas. Other oral hypoglycemics that she is currently on are not known to be a reason for hypoglycemia. The treatment for sulfonyl induced hypoglycemia ideally results within first 24-48 hours. Other etiologies such as neuroendocrine cells from GI tract metastasizing to liver, or decreased gluconeogenesis ability of liver are likely. Elevated insulin level, makes me think that intact beta cells are responsible for the secretion, and limited gluconeogenic reserve is possible given his liver mets. Given the history of cancer, would likely have higher glucose demand secondary to Warburg effect. Respiratory: * Continue supplemental oxygen to keep oxygen saturation above 92% * Continue to monitor for any worsening respiratory status, given metastasis to the lungs. * Empiric antibiotics, if she has any fever or worsening leukocytosis. * Lower respiratory cultures if required. Infectious: Chronic Leukocytosis * Monitor leukocytosis, which could be reactive at this time. * No antibiotics at this time are indicated. * Check urinalysis, urine culture-however patient refused Circulatory/CVS: Borderline hypotension * Continue to monitor vitals every hourly. * Hold antihypertensives at this time. * Takes quinapril at home for hypertension, will hold the medication given her borderline blood pressure 90/50 at the time of admission. Restart tomorrow if blood pressure continues to remain stable * Will provide adequate hydration Hematology: Anemia * Guaiac positive stools, given history of rectal cancer and recent surgery. 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 * For thrombocytopenia, started argatroban after discussing risks versus benefits with the patient's family. * Argatroban drip was stopped 10/10/2017 * Started Xarelto 15 mg twice daily for right upper extremity DVT * Consider long-term anticoagulation, if the patient's family wishes. * Follow-up heparin-induced thrombocytopenia panel. * No heparin products at this time. Metabolic: Hypoglycemia she was admitted to ICU for severe hypoglycemia with glucose leve in the 20s. When she was in rehab, she was on Janumet, Jardiance, glimepiride and Humalog. As per her daughter, her po intake has been poor. she was on 10% dextrose drip. Her random cortisol was 24.3. But her insulin level was 46.5. patient received Octrotide on October 07 . Since then, her glucose level has been more stable. * The underlying caueses of severe hypoglycemia-- poor intake, sulfonyureas, extensive metastatic lesions and liver dysfunction * No further requirements for octreotide or glucagon * Blood glucose maintaining at stable levels * Will monitor FSG every 2-4 hours chronic hyponatremia she has moderate hyponatremia that is chronic and associated with no symptoms/ no intracranial pathology * 127- 134 * Continue to monitor sodium level * Will treat aggressively if sodium drops below 120 with the symptoms headache, fatigue, nausea, vomiting, gait disturbances, confusion. -------- Alimentary: Patient was tolerating reg diet today ----- Neurology: * Monitor for an acute altered mental changes. * Seizure precautions. * Use morphine 2 mg every 4 hourly prn, discussed with the family about side effects. stage IV rectal cancer with liver and lung metastasis status post colectomy and colostomy She was seen in consultation by radiation oncologist on 09/29/17 for her known stage IV rectal carcinoma with widespread metastatic disease. She is status post diverting colostomy on 09/26/17 and was subsequently discharged to an extended care facility. She continues with pain presumably from the rectal mass. She has expressed her desire to move forward with palliative radiation therapy. Palliative external beam radiation treatments will therefore proceed as planned. * A total of 10 fractions (3000 cGy) is being prescribed. * She received first treatment today on 10/10/17. * History of rectal cancer, would need a discussion about goals of care * Continue to monitor abnormal liver chemistries. * Liver biopsy, if the patient's family would like to pursue further. * No systemic chemotherapy at this time until she begins functionality. * palliative specialist on board * Radiation oncologist on board Continue home medications Hypothyroidism continue oral levothyroxine 25 g Hyperlipidemia -stopped Lipitor History of diabetes mellitus Accu-Cheks. Hold home meds given hypoglycemia Hypertension held home medication given hypotension at time of admission Stage IV rectal cancer with metastasis to lung and liver status post diverticular colostomy 09/27/2017 Coronary artery disease status post stents DVT prophylaxis: Subcutaneous heparin has been discontinued. Alps for now. Housekeeping ICU #1 Central line- none #2 Arterial line- none #3 Blake catheter- none ( incontinent ) #4 Rectal tube - none #5 NG tube - none #6 IV/peripheral line- yes. 10/07/17 #7 IV drips- Argatroban d/nataly 10/10 #8 Vent settings: none #9 pressors: none Problem List: 1. Metastatic disease 2. Intractable pain 3. Colostomy in place 4. Rectal carcinoma 5. Metastases to the liver 6. Rectal mass 7. Microcytic anemia Pain Ratin Pain Location: abdomen Pain Goal: Remain pain free Pain Plan: oxycodone Tomorrow's Labs & Rationales: cbc icu bundle
[2017-10-10 08:00] VITALS: BP 138/62
[2017-10-10 10:41] LABS: HEPARIN INDUCED PLATELET AB NEGATIVE (NEGATIVE)
--- NOTE | 2017-10-10 10:42 | PN- Diabetes ---
Assessment/Plan Diabetes Assessment: Ms. Russo is a 76-year-old female with metastatic rectal cancer s/p diverting colostomy, HTN, Hypothyroidism, coronary artery disease s/p stents, DM type 2 and obesity who was admitted to ICU for severe hypoglycemia with glucose leve in the 20s. The underlying caueses of severe hypoglycemia-- poor intake, sulfonyureas, extensive metastatic lesions and liver dysfunction, etc. She received Octreotide on 10/07. She was D5 NS at 125 ml/hour. Her FSGs were 88, 113, 112, 216, 176 and 189. D5NS was decreased to 50 ml/hour. Plan: stop IVF encourage po intake; continue monitoring FSGs. will follow. Subjective Subjective: She feels better this morning. Objective Last 24 Hrs of Vital Signs/I&O Vital Signs Date Time Temp Pulse Resp B/P B/P Pulse O2 O2 Flow FiO2 Mean Ox Delivery Rate 10/10 0324 95 Nasal 2.0L Cannula 10/10 0000 95 Nasal 2.0L Cannula 10/09 2200 98.0 108 24 134/60 95 Nasal 2.0L Cannula 10/09 2000 94 Nasal 2.0L Cannula 10/09 1600 Nasal 2.0L Cannula 10/09 1600 97.4 108 20 120/52 96 Nasal 2.0L Cannula 10/09 1200 93 Nasal 2.0L Cannula 10/09 1200 97.2 106 20 130/50 93 Nasal 2.0L Cannula Intake & Output 10/10 1600 10/10 0800 10/10 0000 Intake Total 615 950 Output Total 100 100 Balance 515 850 Intake, IV 415 490 Intake, Oral 200 460 Number 1 1 Bowel Movements Output, Stool 100 100 Findings Pertinent Lab/Tha Results: Laboratory Tests 10/10 0445 Chemistry Sodium (137 - 145 mmol/L) 134 L Potassium (3.5 - 5.1 mmol/L) 3.9 Chloride (98 - 107 mmol/L) 104 Carbon Dioxide (22 - 30 mmol/L) 24 Anion Gap (5 - 16) 6 BUN (7 - 17 mg/dL) 14 Creatinine (0.5 - 1.0 mg/dL) 0.5 Estimated GFR (>60 ml/min) > 60 Glucose (65 - 99 mg/dL) 193 H Calcium (8.4 - 10.2 mg/dL) 7.2 L Phosphorus (2.5 - 4.5 mg/dL) 2.8 Magnesium (1.6 - 2.3 mg/dL) 1.7 Total Bilirubin (0.2 - 1.3 mg/dL) 1.3 AST (14 - 36 U/L) 242 H ALT (9 - 52 U/L) 76 H Albumin (3.5 - 5.0 g/dL) 1.7 L Coagulation APTT (25 - 37 SEC) 103 *H Hematology CBC w Diff NO MAN DIFF REQ WBC (4.8 - 10.8 /CUMM) 17.7 H RBC (4.20 - 5.40 /CUMM) 4.24 Hgb (12.0 - 16.0 G/DL) 10.1 L Hct (37 - 47 %) 31.8 L MCV (81.0 - 99.0 FL) 74.9 L MCH (27.0 - 31.0 PG) 23.8 L MCHC (33.0 - 37.0 G/DL) 31.8 L RDW (11.5 - 14.5 %) 24.2 H Plt Count (130 - 400 /CUMM) 177 MPV (7.4 - 10.4 FL) 8.7 Gran % (42.2 - 75.2 %) 84.8 H Lymphocytes % (20.5 - 51.1 %) 8.2 L Monocytes % (1.7 - 9.3 %) 7.0 Eosinophils % (0 - 5 %) 0 Basophils % (0.0 - 2.0 %) 0 Absolute Granulocytes (1.4 - 6.5 /CUMM) 15.0 H Absolute Lymphocytes (1.2 - 3.4 /CUMM) 1.5 Absolute Monocytes (0.10 - 0.60 /CUMM) 1.2 H Absolute Eosinophils (0.0 - 0.7 /CUMM) 0 Absolute Basophils (0.0 - 0.2 /CUMM) 0
--- NOTE | 2017-10-10 13:23 | PN- Oncology ---
Subjective Subjective: Perirectal pain Review of Systems: Patient is seen today in follow-up visit in anticipation of palliative radiation therapy. She was seen in consultation on 09/29/17 for her known stage IV rectal carcinoma with widespread metastatic disease. She is status post diverting colostomy on 09/26/17 and was subsequently discharged to an extended care facility. She presented to the department last week with intractable pain and confusion. She was subsequently admitted to the ICU and now has stabilized. She continues with pain presumably from the rectal mass. Simulation had been performed last week in anticipation of treatments. Objective Vital Signs and I&Os Vital Signs Date Time Temp Pulse Resp B/P B/P Pulse O2 O2 Flow FiO2 Mean Ox Delivery Rate 10/10 08 97.6 112 30 138/62 94 Nasal 2.0L Cannula 10/10 0800 94 Nasal 2.0L Cannula 10/10 0324 95 Nasal 2.0L Cannula 10/10 0000 95 Nasal 2.0L Cannula 10/09 2200 98.0 108 24 134/60 95 Nasal 2.0L Cannula 10/09 2000 94 Nasal 2.0L Cannula 10/09 1600 Nasal 2.0L Cannula 10/09 1600 97.4 108 20 120/52 96 Nasal 2.0L Cannula Intake & Output 10/10 1600 10/10 0800 10/10 0000 10/09 1600 10/09 0800 10/09 0000 Intake Total 726 786 7888.6 661 613.6 Output Total 100 100 0 Balance 186 454 8688.6 661 613.6 Intake, IV 415 490 867.6 561 613.6 Intake, Oral 200 460 600 100 Number 1 1 1 1 1 Bowel Movements Output, Stool 100 100 0 Patient 208 lb Weight Weight Bed scale Measurement Method Physical Exam: Pain: 5/10lower back ~perirectal General: Elderly chronic ill- appearing in no acute distress HEENT: Anicteric sclera. Oral cavity clear Lymph Nodes: No cervical , supraclavicular, axillary adenopathy Abdomen: She is obese, nontender Musculoskeletal: No notable axial skeletal tenderness Extremities: 2+ edema Current Medications: Current Medications Sig/Rose Start time Last Medication Dose Route Stop Time Status Admin Argatroban 250 MG Q24H 10/07 1345 DC 10/09 Sodium Chloride 250 ML IV 1707 Benzonatate 100 MG TID 10/09 2100 AC 10/10 PO 1303 Dextrose/Sodium 1,000 ML Q8H 10/09 1030 DC 10/09 Chloride IV 2058 Guaifenesin 10 ML .STK-MED ONE 10/10 0513 DC PO 10/10 0514 Guaifenesin 10 ML Q6P PRN 10/09 2015 AC 10/10 PO 0524 Guaifenesin 10 ML Q4P PRN 10/09 2000 CAN PO Levothyroxine Sodium 0.025 MG DAILY 10/11 0900 AC PO Levothyroxine Sodium 12.5 MCG DAILY 10/08 0900 DC 10/10 IV 0857 Magnesium Sulfate 1 GM ONCE ONE 10/10 0700 DC 10/10 Dextrose/Water 100 ML IV 10/10 1059 0857 Morphine Sulfate 2 MG Q1 PRN 10/09 0348 DC IV Nystatin 5 ML 4 TIMES/DAY 10/07 2100 DC 10/09 PO 2058 Nystatin 1 BROWN BID PRN 10/07 2000 AC 10/07 TOP 2214 Omeprazole 40 MG DAILY AC 10/11 0700 AC PO Ondansetron HCl 4 MG Q8P PRN 10/06 1845 AC IV Oxycodone HCl 5 MG Q3P PRN 10/09 0400 AC 10/10 PO 1304 Pantoprazole Sodium 40 MG DAILY 10/07 2045 DC 10/10 IV 0856 Polyethylene Glycol 17 GM DAILY PRN 10/08 1145 AC 10/10 PO 0856 Rivaroxaban 15 MG BID 10/10 1200 AC 10/10 PO 1304 Senna/Docusate Sodium 2 TAB DAILY PRN 10/08 1015 AC PO Assessment/Plan Assessment/Recommendations: 76-year-old female with metastatic rectal carcinoma with perirectal pain. Patient is status post diverting colostomy but now hospitalized with intractable pain and confusion. She has stabilized since admission. She has expressed her desire to move forward with palliative radiation therapy and be reevaluated by medical oncology. Palliative external beam radiation treatments will therefore proceed as planned. A total of 10 fractions (3000 cGy) is being prescribed. She will see for first treatment today on 10/10/17.
[2017-10-10 16:00] VITALS: BP 130/60
--- NOTE | 2017-10-10 18:46 | Discharge Summary ---
Hospital Course Allergies: Coded Allergies: heparin (Severe, Thrombocytopenia 10/17/17) shellfish derived (Intermediate, G.I. DISTRESS FROM SCALLOPS 09/14/17) Discharge Instructions General Discharge Information Follow-Up Instructions/Appts: Medications at Discharge Discharge Medications: Stop taking the following medications: Atorvastatin Calcium (Atorvastatin Calcium) 40 MG TABLET ORAL DAILY Qty = 90 Empagliflozin (Jardiance) 10 MG TABLET ORAL EVERY 48 HOURS (Every 2 days) Qty = 90 Metoprolol Tartrate (Metoprolol Tartrate) 25 MG TABLET ORAL TWICE DAILY Qty = 60 Furosemide (Lasix) 20 MG TABLET ORAL DAILY Qty = 30 Lisinopril (Lisinopril) 20 MG TABLET ORAL DAILY Insulin Lispro (Humalog Kwikpen U-100) (Unknown Strength) INSULN.PEN Inject into fatty tissue SEE SLIDING SCALE Calcium Carbonate/Vitamin D3 (Calcium 600 + Vit D 400 Tablet) 600 MG-400 TABLET ORAL TWICE DAILY Ferrous Sulfate (Ferrous Sulfate) 325 MG (65 MG IRON) TABLET ORAL TWICE DAILY Continue taking these medications: Levothyroxine Sodium (Levothyroxine Sodium) 25 MCG TABLET 1 Tablet ORAL DAILY Qty = 90 Comments: Last Taken: 09/30/17 Time: 0607 Quinapril HCl (Quinapril HCl) 20 MG TABLET 1 Tablet ORAL DAILY Qty = 90 Comments: NOT GIVEN IN HOSPITAL Oxycodone HCl/Acetaminophen (Percocet 5-325 MG Tablet) 5 MG-325 MG TABLET 1-2 Tablet ORAL EVERY 4-6 HOURS as needed for PAIN Qty = 30 Comments: Last Taken: 09/30/17 Time: 0730 Multivitamin (Daily Multiple Vitamin) 1 EACH TABLET 1 Tablet ORAL DAILY x ray revealed right sided consolidation, with no clear e/o systemic immune respone- no fever, or white count. She was watched off antibiotics, and plan was to start abx, if she had any white count. Klebsiella UTI- Patient grew Klebsiella in her urine sensitive to ciprofloxacin. Patient has very dark urine and low urine output. Patient was given 7 day course of ceftaz for UTI. From October 18 her creatinine was start elevating from 1.1 to 1.5 on October 21. She has very low urine output and last week. She is currently on IV fluids at maintenance dose while she is nothing by mouth. Patient also has generalized anasarca given her very poor nutritional status, not willing for tube feeding, very high aspiration risk even aspirating and choking on her own saliva continuously. At this point we will not give her much of the fluids through IV because that will worsen her edema and put her risk for pulmonary edema leading to intubation. Borderline hypotension Takes quinapril at home for hypertension, held the medication given her borderline blood pressure 90/50 at the time of admission. She received adequate hydration. After which blood pressure continued to improve. Her blood pressure remained stable at around 110-120 throughout her stay. Can continue her home medication at the time of discharge. Doesn't require any central line or vasopressor management. Anemia Guaiac positive stools, given history of rectal cancer and recent surgery. Hemoglobin and hematocrit remained stable without significant drop. No active signs of bleeding were found. She maintained her H&H during ICU stay. 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 However heparin-induced platelet antibodies were negative. HIT was ruled out. Heparin PF4 AB 0.114. For thrombocytopenia, we started her on argatroban drip after discussing risks versus benefits with the patient's family. Argatroban drip was stopped on 10/10. and Started Xarelto 15 mg twice daily for right upper extremity DVT. However because of poor oral intake Xarelto was stopped and she was started on Lovenox 100 twice daily subcutaneous for right Upper extremity DVT given negative HIT Panel. However her platelets started dropping down after starting on Lovenox [id number]. Discussed with oncologist, Lovenox was stopped and restarted on argatroban drip. No more heparin products. Patient was transferred from ICU to general medical floor on October 15 but given her low platelet count and need for argatroban drip she was sent back to ICU on October 17. She was started on argatroban drip and plan is to change back to oral anticoagulation once her platelets are more than 1 50,000 and she would be able to swallow oral medications. Hospital course was complicated by vaginal bleed, and argatroban drip was discontinued. She contined to drop her H&H, and was transfused with one unit of PRBCs. After she was started on Argatroban drip, the platelets improved upto 170k, and slowly drifted down to ana maria of 88k without any clear e/o etilogy such as heparin, infection. TTP was considered in differential. DIC was ruled out. Hypoglycemia she was admitted to ICU for severe hypoglycemia with glucose leve in the 20s. When she was in rehab, she was on Janumet, Jardiance, glimepiride and Humalog. As per her daughter, her po intake has been poor. she was on 10% dextrose drip. Her random cortisol was 24.3. But her insulin level was 46.5. patient received Octrotide too. Since then, her glucose level has been more stable. The underlying caueses of severe hypoglycemia-- poor intake, sulfonyureas, extensive metastatic lesions and liver dysfunction. No further requirements for octreotide or glucagon. Blood glucose maintaining at stable levels. No hypoglycemic events since October 14. chronic hyponatremia she has moderate hyponatremia that is chronic and associated with no symptoms/ no intracranial pathology. Sodium varied between 127- 134 with no symptoms like headache, fatigue, nausea, vomiting, gait disturbances, confusion. Patient was on normal saline and currently on D5 normal saline maintaining her sodium level within normal range. stage IV rectal cancer with liver and lung metastasis status post colectomy and colostomy She was seen in consultation by radiation oncologist on 09/29/17 for her known stage IV rectal carcinoma with widespread metastatic disease. She is status post diverting colostomy on 09/26/17 and was subsequently discharged to an extended care facility. She continues with pain presumably from the rectal mass. She has expressed her desire to move forward with palliative radiation therapy. Palliative external beam radiation treatments will therefore proceed as planned. A total of 10 fractions (3000 cGy) is being prescribed. She has received two treatments only 10/10/17. and 10/11/2017 but once she became septic and unstable her palliative radiation was discontinued. Of note patient was not complaining of any severe pain. Colorectal surgeon and oncologist are also recommending for comfort measures and no further palliative radiationS. History of rectal cancer, would need a discussion about goals of care. Palliative specialist Dr. Pedroza on board. He spoke with patient and her daughter at bedside in detail about goals of care and change of CODE STATUS. Patient and patient's family wants to rethink about the CODE STATUS. No chemotherapy planned at this time until she begins functionality. she will be discharged to [facility]. Multiple family meetings were held and house staff along with our attending Dr. Garcia and palliative specialist Dr. Pedroza discussed in detail about CODE STATUS and fully explained about high risk for being intubated or recess stated at any point and that could be harmful instead of giving benefit to her but family/patient still wants to be full code. Abdominal wound: The patient has a bag on her abdomen that is draining ascitic fluid from a chronic abdominal wound, which was watched closely. She continued to have wound discharge, which was serous and no e/o infection. Dysphagia: Patient reported difficulty swallowing, concern for aspiration. She has multiple swallow elevation done and always she failed swallow evaluation and was kept nothing by mouth for speech/swallow therapy personnel. At times family and patient wants to eat and at that point it was discussed in detail about risks of aspiration and there are willing to take that aspiration risk. Multiple times patient was offered tube feeding which she refused every time eventhough knowing the consequences of not eating and drinking leading to worse severe malnutrition. Other medical problems Hypothyroidism continued iv levothyroxine 12.5 g Hyperlipidemia -stopped Lipitor History of diabetes mellitus- Accu-Cheks. Held home meds given hypoglycemia Hypertension - held home medication quinalapril given hypotension at time of admission Coronary artery disease status post stents DVT prophylaxis: Alps /argatroban Housekeeping ICU #1 Central line- none #2 Arterial line- none #3 Blake catheter- yes #4 Rectal tube - none #5 NG tube - none #6 IV/peripheral line- yes. #7 IV drips- Argatroban drip, d5 NS #8 Vent settings: none #9 pressors: none Allergies: Coded Allergies: heparin (Severe, Thrombocytopenia 10/17/17) shellfish derived (Intermediate, G.I. DISTRESS FROM SCALLOPS 09/14/17) Pertinent Lab Results: EXAMINATION: MR LUMBAR SPINE WITHOUT AND WITH CONTRAST CLINICAL INFORMATION: Back pain. Rule out metastatic disease. COMPARISON: Abdominal CT performed earlier the same day. TECHNIQUE: MRI of the lumbar spine was obtained before and after intravenous administration of 10 mL Gadavist. FINDINGS: This is a limited motion degraded study. There are 5 rib-bearing lumbar-type vertebral bodies. Lumbar alignment is normal. Bone marrow signal is homogenous and normal without evidence of osseous metastatic disease. There is no bone marrow edema. There are no acute fractures. Partial disc desiccation at all lumbar levels, greatest at L5-S1. Disc volumes are maintained within the lumbar spine. There is moderate disc volume loss at the partially imaged T9-T10 and T10-T11 levels. No enhancing epidural masses. Accounting for artifact no definite pathologic intrathecal enhancement is appreciated. The conus terminates at the L1-L2 level. Intra-abdominal and intrapelvic soft tissues are better demonstrated on the abdominal and pelvic CT performed earlier the same day. Please see that report for further details. The L1-L2 and the L2-L3 disc contours are normal. There is no central canal stenosis and there is no foraminal stenosis at these levels. L3-L4: Diffuse annular disc bulge and mild to moderate bilateral facet arthropathy and ligamentum flavum thickening. There is no central canal stenosis. Mild foraminal narrowing bilaterally. L4-L5: Diffuse annular disc bulge and moderate bilateral hypertrophic facet arthropathy and ligamentum flavum thickening. Findings in concert result in narrowing of the subarticular zones bilaterally without definite traversing nerve root compression. There is mild foraminal narrowing bilaterally. L5-S1: There is a shallow central disc protrusion that indents the ventral epidural fat without resulting in mass effect on the traversing nerve roots. Background annular disc bulge and moderate bilateral facet arthropathy. No central canal stenosis. Mild foraminal narrowing bilaterally. IMPRESSION: - This is a limited motion degraded study. There is no evidence of spinal metastatic disease. No enhancing epidural masses. No acute fractures. - Mild to moderate spondylosis at the L3-L4, L4-L5, and L5-S1 levels. There is no severe central canal stenosis and there is no severe foraminal stenosis within the lumbar spine. - Intra-abdominal and intrapelvic soft tissues are better demonstrated on the abdominal and pelvic CT performed earlier the same day. Please see that report for further details. Known liver metastases and a known rectal mass with enlarged perirectal lymph nodes are partially imaged on this study and better demonstrated on the prior exam. --------- CHEST: Lungs: The central airways are patent. Innumerable pulmonary nodules are again seen throughout the bilateral lungs. There is no significant change in the short interval. No pleural effusion or pneumothorax. No new consolidation. Mediastinum: The heart is normal in size. Trace pericardial effusion. Coronary artery calcifications present. The thyroid gland is unremarkable. No mediastinal lymphadenopathy. Mild esophageal wall thickening diffusely. Chest Wall/Axilla: No lymphadenopathy. No chest wall mass. ABDOMEN/PELVIS: Liver, Gallbladder, Biliary Tree: The liver is enlarged. Diffuse heterogeneous hypoattenuating lesions are seen throughout the hepatic parenchyma, with increased size of lesions since the prior study. Increase in trace perihepatic ascites. Cholelithiasis. No gallbladder wall thickening. Pancreas: Unremarkable. Spleen: Unremarkable. Adrenal Glands: Unremarkable. Kidneys and Ureters: The kidneys are normal in size, shape, and attenuation. No hydronephrosis or hydroureter. Left lower pole renal calculus is again noted. This measures 0.5 cm, 14 cm from the posterior axillary line. Bladder: Partially distended without wall thickening. Small amount of gas within the bladder lumen likely associated with recent catheterization. Gastrointestinal Tract: The stomach is decompressed with no gross abnormality. The small bowel is normal in caliber without obstruction. There is a normal appendix. There is a left lower quadrant loop colostomy. There is an external drain adjacent to the colostomy. Redemonstration of the rectal mass. Diffuse heterogeneity of the rectal wall. Small volume ascites extends into the pelvis. Abdominal Wall: Diffuse anasarca. Left lower quadrant ostomy. Lymphovascular Structures: Lymph nodes: Multiple prominent lymph nodes are seen in the perirectal fat, similar to prior. For instance, there is an anterior perirectal node which measures 1.5 cm in short axis. Vascular: Normal caliber aorta with mild atherosclerotic calcifications. Pelvic Viscera: The uterus and adnexa are unremarkable. OSSEOUS STRUCTURES: No suspicious sclerotic or lytic bone lesions are identified. Degenerative changes are present throughout the spine. IMPRESSION: 1. Redemonstration of the rectal mass. Prominent adjacent perirectal lymph nodes are again noted as well. 2. No significant change in the appearance of bilateral pulmonary nodules consistent with metastatic disease. 3. Increased prominence of diffuse hepatic masses consistent with metastatic disease. Increase in small volume ascites. 4. No new consolidation in the lungs. No evidence of pulmonary edema. 5. There is no free air in the abdomen to suggest perforation. Color-flow triplex imaging with spectral analysis and compression Doppler were performed on the upper extremities. FINDINGS: Occlusive thrombus is noted within the right basilic vein extending into the adjacent right brachial vein. The right cephalic vein is also occluded. The remainder of the right upper extremity venous tree including the axillary, subclavian, the innominate and the visualized part of the right internal jugular veins are widely patent. No evidence of any venous thrombosis is seen within the left upper extremity. IMPRESSION: Occlusive venous thrombus involving the right basilic and right cephalic veins. --- Head ct FINDINGS: There is no acute intracranial hemorrhage or abnormal extra-axial collection. No intracranial mass effect or midline shift. Lateral and third ventricles are proportionate to the subarachnoid spaces. No hydrocephalus. Scattered nonspecific foci of hypoattenuation are visualized within the periventricular white matter that most likely represent a chronic manifestation of small vessel ischemia. Frias-white matter differentiation is grossly preserved and there is no evidence of acute territorial infarct. The calvarium and skull base are intact. Mastoid air cells and middle ear cavities are well aerated. Visualized paranasal sinuses are well-aerated. IMPRESSION: Scattered chronic small vessel ischemic changes within the periventricular white matter. Otherwise unremarkable examination. No evidence of acute territorial infarct or hemorrhage. ---- cxr FINDINGS: Low lung volumes. Similar pattern nodules throughout the lungs in keeping with the history of metastatic disease. No focal consolidation, pleural effusion, or pneumothorax. Stable central vascular congestion without overt edema. Cardiac silhouette and osseous structures are stable. IMPRESSION: Stable pattern nodules throughout the right and left lung compatible with a history of pulmonary metastatic disease. No superimposed acute process. Low lung volumes. -------- Disposition Summary Disposition Principal Diagnosis: #1 hypoglycemia #2 back pain #3 hyponatremia-chronic #4 thrombocytopenia, ruled out heparin-induced thrombocytopenia #5 right upper extremity venous thrombus- on xaralto #6 metabolic encephalopathy #7 anemia-iron deficiency anemia and anemia of chronic disease #8 metastatic rectal cancer with metastases to liver and lung- palliative radiotherapy #9 leukocytosis Additional Diagnosis: as above Discharge Disposition: SNF Discharge Instructions General Discharge Information Code Status: Full Code Patient's Diet: As tolerated Patient's Activity: As tolerated Follow-Up Instructions/Appts: Please follow-up with PCP in one week after discharge Please follow-up with oncologist in one week after discharge Please follow-up with radiation oncology in one week after discharge Please follow-up with endocrinology in 1 week after discharge Please follow-up with oil plant operator in one week after discharge for further palliative care Medications at Discharge Discharge Medications: Stop taking the following medications: Atorvastatin Calcium (Atorvastatin Calcium) 40 MG TABLET ORAL DAILY Qty = 90 Empagliflozin (Jardiance) 10 MG TABLET ORAL EVERY 48 HOURS (Every 2 days) Qty = 90 Metoprolol Tartrate (Metoprolol Tartrate) 25 MG TABLET ORAL TWICE DAILY Qty = 60 Furosemide (Lasix) 20 MG TABLET ORAL DAILY Qty = 30 Lisinopril (Lisinopril) 20 MG TABLET ORAL DAILY Insulin Lispro (Humalog Kwikpen U-100) (Unknown Strength) INSULN.PEN Inject into fatty tissue SEE SLIDING SCALE Calcium Carbonate/Vitamin D3 (Calcium 600 + Vit D 400 Tablet) 600 MG-400 TABLET ORAL TWICE DAILY Ferrous Sulfate (Ferrous Sulfate) 325 MG (65 MG IRON) TABLET ORAL TWICE DAILY Continue taking these medications: Levothyroxine Sodium (Levothyroxine Sodium) 25 MCG TABLET 1 Tablet ORAL DAILY Qty = 90 Comments: Last Taken: 09/30/17 Time: 0607 Quinapril HCl (Quinapril HCl) 20 MG TABLET 1 Tablet ORAL DAILY Qty = 90 Comments: NOT GIVEN IN HOSPITAL Oxycodone HCl/Acetaminophen (Percocet 5-325 MG Tablet) 5 MG-325 MG TABLET 1-2 Tablet ORAL EVERY 4-6 HOURS as needed for PAIN Qty = 30 Comments: Last Taken: 09/30/17 Time: 0730 Multivitamin (Daily Multiple Vitamin) 1 EACH TABLET 1 Tablet ORAL DAILY Copies To: Yamilet Mobley APRN
--- NOTE | 2017-10-10 18:48 | Patient Discharge Instructions ---
Discharge Instructions General Discharge Information You were seen/treated for: #1 hypoglycemia #2 back pain #3 hyponatremia-chronic #4 thrombocytopenia, rule out heparin-induced thrombocytopenia #5 right upper extremity venous thrombus #6 metabolic encephalopathy #7 anemia-iron deficiency anemia and anemia of chronic disease #8 metastatic rectal cancer with metastases to liver and lung #9 leukocytosis Special Instructions: Please follow-up with PCP in one week after discharge Please follow-up with oncologist in one week after discharge Please follow-up with radiation oncology in one week after discharge Please follow-up with endocrinology in 1 week after discharge Please follow-up with nurse sitter in one week after discharge for further palliative care Diet Continue normal diet: Yes Activity Full Activity/No Limits: Yes Acute Coronary Syndrome Inclusion Criteria At DC or during hospital stay patient has or had the following: ACS DIAGNOSIS No Discharge Core Measures Meds if any: Prescribed or Continued at Discharge Meds if any: NOT Prescribed or Continued at Discharge Congestive Heart Failure Inclusion Criteria At DC or during hospital stay patient has or had the following: CHF DIAGNOSIS No Discharge Core Measures Meds if any: Prescribed or Continued at Discharge Meds if any: NOT Prescribed or Continued at Discharge Cerebrovascular accident Inclusion Criteria At DC or during hospital stay patient has or had the following: CVA/TIA Diagnosis No Discharge Core Measures Meds if any: Prescribed or Continued at Discharge Meds if any: NOT Prescribed or Continued at Discharge Venous thromboembolism Inclusion Criteria VTE Diagnosis Yes VTE Type Deep Venous Thrombosis VTE Confirmed by (Test) EXT BILATERAL VENOUS DOPP Discharge Core Measures - Per Current guidelines, there needs to be overlap - treatment for the first 5 days of Warfarin therapy. - If discharged on Warfarin prior to 5 days of - overlap therapy, the patient will need to be - assessed for post discharge needs including - *Post discharge parental anticoagulation - *Warfarin and/or parental anticoagulation education - *Follow up date to check INR post discharge At least 5 days overlap therapy as Inpatient Yes Meds if any: Prescribed or Continued at Discharge Note: Overlap Therapy is Warfarin and Anticoagulant Meds if any: NOT Prescribed or Continued at Discharge
--- NOTE | 2017-10-10 21:04 | PN- Palliative Care ---
Subjective Subjective: Patient seen for f/u palliative consultation. Patient has improved dramatically since Tuesday. Now awake, oriented. Pain well controlled with oxycodone. A family meeting was held for 20 minutes including the patient, daughter, and Dr. Nina. Patient expresses understanding of her current medical condition - which became apparent with her diagnosis 3 weeks ago. She recognizes that her condition is quite serious, but she is hopeful that she will benefit from palliative RT and hopefully to be able to tolerate chemotherapy. She expresses understanding that in order to tolerate chemotherapy, her overall condition must improve. To that end, she looks forward to returning to [facility], with an eventual plan to return home. We discussed advance directives including CPR, intubation. She is not yet able to consent to a DNR order. We have discussed that she is most likely to benefit from treatments with high likelihood of success - as evidenced by her recent improvement from severe hypoglycemia. We discussed how CPR in the setting of advancing serious disease is unlikely to provide her with benefit and may result in overall discomfort. Review of Systems Musculoskeletal: Denies: back pain. Neurological/Psychological: Reports: depressed. Objective Last 24 Hrs of Vital Signs/I&O Vital Signs Date Time Temp Pulse Resp B/P B/P Pulse O2 O2 Flow FiO2 Mean Ox Delivery Rate 10/10 1624 Nasal 2.0L Cannula 10/10 1600 98.1 99 20 130/60 95 Nasal 2.0L Cannula 10/10 1600 95 Nasal 2.0L Cannula 10/10 0800 97.6 112 30 138/62 94 Nasal 2.0L Cannula 10/10 0800 94 Nasal 2.0L Cannula 10/10 0324 95 Nasal 2.0L Cannula 10/10 0000 95 Nasal 2.0L Cannula 10/09 2200 98.0 108 24 134/60 95 Nasal 2.0L Cannula Intake & Output 10/10 1600 10/10 0800 10/10 0000 Intake Total 600 615 950 Output Total 20 100 100 Balance 580 515 850 Intake, IV 200 415 490 Intake, Oral 400 200 460 Number 2 1 1 Bowel Movements Output, Stool 20 100 100 Physical Exam General Appearance: awake, comfortable, obese Head: normal appearance Neurologic/Psychiatric: awake, alert, oriented x 3, depressed affect Current Medications Current Medications: Current Medications Sig/Rose Start time Last Medication Dose Route Stop Time Status Admin Argatroban 250 MG Q24H 10/07 1345 DC 10/09 Sodium Chloride 250 ML IV 1707 Benzonatate 100 MG TID 10/09 2100 AC 10/10 PO 1303 Dextrose/Sodium 1,000 ML Q8H 10/09 1030 DC 10/09 Chloride IV 205 Guaifenesin 10 ML .STK-MED ONE 10/10 05 DC PO 10/10 0514 Guaifenesin 10 ML Q6P PRN 10/09 2015 AC 10/10 PO 0524 Levothyroxine Sodium 0.025 MG DAILY AC 10/11 0700 AC PO Levothyroxine Sodium 12.5 MCG DAILY 10/08 0900 DC 10/10 IV 0857 Magnesium Sulfate 1 GM ONCE ONE 10/10 0700 DC 10/10 Dextrose/Water 100 ML IV 10/10 1059 0857 Morphine Sulfate 2 MG Q1 PRN 10/09 0348 DC IV Nystatin 5 ML 4 TIMES/DAY 10/07 2100 DC 10/09 PO 2058 Nystatin 1 BROWN BID PRN 10/07 2000 AC 10/07 TOP 2214 Omeprazole 40 MG DAILY AC 10/11 0700 AC PO Ondansetron HCl 4 MG Q8P PRN 10/06 1845 AC IV Oxycodone HCl 5 MG Q3P PRN 10/09 0400 AC 10/10 PO 1838 Pantoprazole Sodium 40 MG DAILY 10/07 2045 DC 10/10 IV 0856 Polyethylene Glycol 17 GM DAILY PRN 10/08 1145 AC 10/10 PO 0856 Rivaroxaban 15 MG BID 10/10 1200 AC 10/10 PO 1304 Senna/Docusate Sodium 2 TAB DAILY PRN 10/08 1015 AC PO Diagnostic Data Lab/Micro/Pathology Results: Laboratory Tests 10/10/17 0445: Anion Gap 6, Estimated GFR > 60, Glucose 193 H, Calcium 7.2 L, Phosphorus 2.8, Magnesium 1.7, Total Bilirubin 1.3, AST 242 H, ALT 76 H, Albumin 1.7 L, APTT 103 *H, CBC w Diff NO MAN DIFF REQ, RBC 4.24, MCV 74.9 L, MCH 23.8 L, MCHC 31.8 L, RDW 24.2 H, MPV 8.7, Gran % 84.8 H, Lymphocytes % 8.2 L, Monocytes % 7.0, Eosinophils % 0, Basophils % 0, Absolute Granulocytes 15.0 H, Absolute Lymphocytes 1.5, Absolute Monocytes 1.2 H, Absolute Eosinophils 0, Absolute Basophils 0 Assessment/Plan Assessment St 4 Rectal Carcinoma - now undergoing palliative RT. Patient's Condition: serious Prognosis: poor Is Patient Decisional? yes Case Discussed With: patient, family, house staff Goals of Care: life-prolonging, rehabilitative Treatment Preferences: 1. Periodically review advance directives with patient at agreed upon intervals and/or change in condition. Avoid appearance of badgering. Pain/Symptom Management: 1. Continue Oxycodone for analgesia. Utilize Senna S 1-2 tabs (standing, not PRN ) to avoid constipation. Reduce if excess ostomy output Disposition: 1. To return to [facility]
[2017-10-11] VITALS: BP 130/80
[2017-10-11 04:51] LABS: ABSOLUTE BASOPHIL COUNT 0 /CUMM (0.0-0.2); ABSOLUTE EOSINOPHIL COUNT 0 /CUMM (0.0-0.7); ABSOLUTE GRANULOCYTE CT 14.1 /CUMM (1.4-6.5); ABSOLUTE LYMPH COUNT 2.2 /CUMM (1.2-3.4); ABSOLUTE MONOCYTE COUNT 1.2 /CUMM (0.10-0.60); BASOPHIL % 0 % (0.0-2.0); EOSINOPHIL % 0 % (0-5); GRANULOCYTE % 80.1 % (42.2-75.2); HEMATOCRIT 33.9 % (37-47); MEAN CORPUSCULAR HGB 23.9 PG (27.0-31.0); MEAN CORPUSCULAR HGB CONC 31.8 G/DL (33.0-37.0); MEAN CORPUSCULAR VOLUME 75.2 FL (81.0-99.0); MEAN PLATELET VOLUME 7.5 FL (7.4-10.4); PLATELET COUNT 180 /CUMM (130-400); RBC DISTRIBUTION WIDTH 24.2 % (11.5-14.5); WHITE BLOOD CELL COUNT 17.5 /CUMM (4.8-10.8)
--- NOTE | 2017-10-11 07:39 | PN- Housestaff ---
See Addendum Miguel Cade 10/11/17 0739: Subjective Follow-up For: #1 hypoglycemia #2 back pain #3 hyponatremia-chronic #4 thrombocytopenia, rule out heparin-induced thrombocytopenia #5 right upper extremity venous thrombus #6 metabolic encephalopathy #7 anemia-iron deficiency anemia and anemia of chronic disease #8 metastatic rectal cancer with metastases to liver and lung #9 leukocytosis Complaints: pain scale (0-10) Subjective: Patient was seen and examined this morning. She is awake and alert, she is oriented to time place and person, able to provide history regarding her recent health events. She offers no complaint other than abdominal discomfort when she moves. Patient reports ongoing dry cough, congestion. She denies any fever, chills, chest pain, short of breath. Colostomy bag in place. Oral intake has been improving. Sugars were improved. Vitals were stable. She is afebrile, heart rate 100, respiratory rate 24, blood pressure 134/60, saturating at 95 on 2 L. Labs were significant for WBC count 17.7, hemoglobin 10, hematocrit 30, platelet count 177. HIT panel NEGATIVE. Review of Systems Constitutional: Reports: see HPI. Objective Last 24 Hrs of Vital Signs/I&O Vital Signs Date Time Temp Pulse Resp B/P B/P Pulse O2 O2 Flow FiO2 Mean Ox Delivery Rate 10/11 1403 Nasal 2.0L Cannula 10/11 1210 94 Nasal 2.0L Cannula 10/11 0800 93 Nasal 2.0L Cannula 10/11 0800 98.5 113 24 138/60 93 Nasal 2.0L Cannula 10/11 0000 95 Nasal 2.0L Cannula 10/11 0000 98.0 99 22 130/80 95 Nasal 2.0L Cannula Intake & Output 10/11 1600 10/11 0800 10/11 0000 Intake Total 100 200 Output Total 200 25 Balance -100 175 Intake, Oral 100 200 Number 1 1 Bowel Movements Output, Stool 200 25 Physical Exam General Appearance: Alert, Oriented X3, Cooperative Other Physical Findings: Head: atraumatic Eyes: Bilateral: PERRL, EOMI, pale conjunctivae. Ears, Nose, Throat: normal pharynx Neck: normal inspection, supple Respiratory: normal breath sounds Cardiovascular: regular rate/rhythm Peripheral Pulses: 2+ radial (R), 2+ radial (L) Gastrointestinal: normal bowel sounds, soft, colostomy bag in place Rectal: heme positive stool Back: normal inspection Extremities: pedal edema Neurologic/Psych: awake Cranial Nerves: normal hearing, normal speech, PERRL Reflexes: 2+: knee (R), knee (L). Current Medications: Current Medications Sig/Rose Start time Last Medication Dose Route Stop Time Status Admin Albuterol Sulfate 3 ML Q6P PRN 10/11 0830 AC INH Azithromycin 250 MG DAILY 10/11 1140 AC 10/11 PO 10/15 0901 1547 Benzonatate 100 MG TID 10/09 2100 AC 10/11 PO 1547 Furosemide 20 MG ONCE ONE 10/11 1230 DC 10/11 IV 10/11 1231 1230 Guaifenesin 10 ML Q6P PRN 10/09 2015 AC 10/10 PO 0524 Levothyroxine Sodium 0.025 MG DAILY AC 10/11 0700 AC 10/11 PO 0802 Nystatin 1 BROWN BID PRN 10/07 2000 AC 10/07 TOP 2214 Omeprazole 40 MG DAILY AC 10/11 0700 AC 10/11 PO 0802 Ondansetron HCl 4 MG Q8P PRN 10/06 1845 AC IV Oxycodone HCl 5 MG Q3P PRN 10/09 0400 AC 10/11 PO 1230 Polyethylene Glycol 17 GM DAILY PRN 10/08 1145 AC 10/10 PO 0856 Rivaroxaban 15 MG BID 10/10 1200 AC 10/11 PO 0933 Senna/Docusate Sodium 2 TAB DAILY PRN 10/11 0900 AC PO Senna/Docusate Sodium 2 TAB DAILY PRN 10/08 1015 DC PO 10/11 0859 Vitamin A/Vitamin D 1 BROWN BID 10/11 1300 AC 10/11 TOP 1547 Zinc Oxide 1 BROWN BID 10/11 1300 10/11 TOP 1547 Last 24 Hrs of Lab/Tha Results Last 24 Hrs of Labs/Mics: Laboratory Tests 10/11/17 0350: Anion Gap 10, Estimated GFR > 60, BUN/Creatinine Ratio 32.0 H, CBC w Diff MAN DIFF ORDERED, RBC 4.50, MCV 75.2 L, MCH 23.9 L, MCHC 31.8 L, RDW 24.2 H, MPV 7.5, Gran % 80.1 H, Lymphocytes % 12.8 L, Monocytes % 7.1, Eosinophils % 0, Basophils % 0, Absolute Granulocytes 14.1 H, Segmented Neutrophils 79 H, Band Neutrophils 9 H, Absolute Lymphocytes 2.2, Lymphocytes 7 L, Monocytes 5, Absolute Monocytes 1.2 H, Absolute Eosinophils 0, Absolute Basophils 0, Platelet Estimate ADEQUATE, Polychromasia 1+, Anisocytosis 1+, Target Cells 1+, Ray Cells FEW, Elliptocytes 1+ Assessment/Plan Assessment: Ms Russo is a 76-year-old woman with PMHx of 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 Montoya), coronary artery disease status post stents, type 2 diabetes, hypothyroidism hyperlipidemia, hypertension who was brought to the hospital after she was found to have severe back pain and altered mental status and found to have had hypoglycemia upto 22 mg/dl at the time of presentation which could have resulted in altered mentation. She was transferred to ICU for management of hypoglycemia and altered mental status. Assessment and plan Etiology for her acute change in mental status is likely due to hypoglycemia, likely secondary to sulfonylurea use or metastasis to liver. Since she does not have any significant renal dysfunction, and has been on sulfonylureas for a while, it seems unlikely that it could be due to sulfonylureas. Other oral hypoglycemics that she is currently on are not known to be a reason for hypoglycemia. The treatment for sulfonyl induced hypoglycemia ideally results within first 24-48 hours. Other etiologies such as neuroendocrine cells from GI tract metastasizing to liver, or decreased gluconeogenesis ability of liver are likely. Elevated insulin level, makes me think that intact beta cells are responsible for the secretion, and limited gluconeogenic reserve is possible given his liver mets. Given the history of cancer, would likely have higher glucose demand secondary to Warburg effect. Respiratory: * Continue supplemental oxygen to keep oxygen saturation above 92% * Continue to monitor for any worsening respiratory status, given metastasis to the lungs. * Given her congestion, cough we did repeat chest x-ray-which has no new findings. * C nebs and albuterol treatments * Started azithromycin for possible acute bronchitis 07/01. Dose of Lasix was given * Lower respiratory cultures if required. Infectious: Chronic Leukocytosis * Monitor leukocytosis, which could be reactive at this time. Circulatory/CVS: Borderline hypotension * Continue to monitor vitals every hourly. * Hold antihypertensives at this time. * Takes quinapril at home for hypertension, will hold the medication given her borderline blood pressure 90/50 at the time of admission. Restart tomorrow if blood pressure continues to remain stable * Will provide adequate hydration Hematology: Anemia * Guaiac positive stools, given history of rectal cancer and recent surgery. 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 * For thrombocytopenia, started argatroban after discussing risks versus benefits with the patient's family. * Argatroban drip was stopped 10/10/2017 * Started Xarelto 15 mg twice daily for right upper extremity DVT * Consider long-term anticoagulation, if the patient's family wishes. * Follow-up heparin-induced thrombocytopenia panel- neg. * No heparin products at this time. Metabolic: Hypoglycemia she was admitted to ICU for severe hypoglycemia with glucose leve in the 20s. When she was in rehab, she was on Janumet, Jardiance, glimepiride and Humalog. As per her daughter, her po intake has been poor. she was on 10% dextrose drip. Her random cortisol was 24.3. But her insulin level was 46.5. patient received Octrotide on October 07 . Since then, her glucose level has been more stable. * The underlying caueses of severe hypoglycemia-- poor intake, sulfonyureas, extensive metastatic lesions and liver dysfunction * No further requirements for octreotide or glucagon * Blood glucose maintaining at stable levels * Will monitor FSG every 2-4 hours chronic hyponatremia she has moderate hyponatremia that is chronic and associated with no symptoms/ no intracranial pathology * 127- 134 * Continue to monitor sodium level * Will treat aggressively if sodium drops below 120 with the symptoms headache, fatigue, nausea, vomiting, gait disturbances, confusion. -------- Alimentary: Patient was tolerating reg diet today ----- Neurology: * Monitor for an acute altered mental changes. * Seizure precautions. stage IV rectal cancer with liver and lung metastasis status post colectomy and colostomy She was seen in consultation by radiation oncologist on 09/29/17 for her known stage IV rectal carcinoma with widespread metastatic disease. She is status post diverting colostomy on 09/26/17 and was subsequently discharged to an extended care facility. She continues with pain presumably from the rectal mass. She has expressed her desire to move forward with palliative radiation therapy. Palliative external beam radiation treatments will therefore proceed as planned. * A total of 10 fractions (3000 cGy) is being prescribed. * She received 2 treatments so far 10/10 and 10/11 * History of rectal cancer, would need a discussion about goals of care * Continue to monitor abnormal liver chemistries. * Liver biopsy, if the patient's family would like to pursue further. * No systemic chemotherapy at this time until she begins functionality. * palliative specialist on board * Radiation oncologist on board Continue home medications Hypothyroidism continue oral levothyroxine 25 g Hyperlipidemia -stopped Lipitor given transaminitis History of diabetes mellitus Accu-Cheks. Hold home meds given hypoglycemia Hypertension held home medication given hypotension at time of admission Stage IV rectal cancer with metastasis to lung and liver status post diverticular colostomy 09/27/2017 Coronary artery disease status post stents DVT prophylaxis: Subcutaneous heparin has been discontinued. Alps for now. Housekeeping ICU #1 Central line- none #2 Arterial line- none #3 Blake catheter- none ( incontinent ) #4 Rectal tube - none #5 NG tube - none #6 IV/peripheral line- yes. 10/07/17 #7 IV drips- Argatroban d/nataly 10/10 #8 Vent settings: none #9 pressors: none Problem List: 1. Thrombocytopenia 2. Metastatic disease Pain Ratin Pain Location: abdomen Pain Goal: Remain pain free Pain Plan: oxycodone Tomorrow's Labs & Rationales: cbc icu bundle Dennis Hunter MD 10/11/17 1331: Attending MD Review Statement Attending Statement Attending MD Statement: examined this patient, discuss w/resident/PA/MACARONI PRESS OPERATOR, agreed w/resident/PA/MACARONI PRESS OPERATOR, reviewed EMR data (avail), discussed with case mgmt, amended to note Attending Assessment/Plan: The patient was seen and discussed with house staff and case management. Slight upper airway congestion today- (?bronchitis). Agree with Zithromax. Continue XRT treatments. PT consult. Will need to arrange for transportation back and forth from SNF for XRT.
[2017-10-11 08:00] VITALS: BP 138/60
--- NOTE | 2017-10-11 09:14 | PN- Diabetes ---
Assessment/Plan Diabetes Assessment: Ms. Russo is a 76-year-old female with metastatic rectal cancer s/p diverting colostomy, HTN, Hypothyroidism, coronary artery disease s/p stents, DM type 2 and obesity who was admitted to ICU for severe hypoglycemia with glucose leve in the 20s. The underlying caueses of severe hypoglycemia-- poor intake, sulfonyureas, extensive metastatic lesions and liver dysfunction, etc. She received Octreotide on 10/07. IV fluid was discontinued. Her FSGs were 189, 175, 209, 176, 180 and 153. Plan: continue monitoring FSGs; encourage po intake; will follow. Subjective Subjective: Overall she feels better. But she still has cough. Objective Last 24 Hrs of Vital Signs/I&O Vital Signs Date Time Temp Pulse Resp B/P B/P Pulse O2 O2 Flow FiO2 Mean Ox Delivery Rate 10/11 0000 95 Nasal 2.0L Cannula 10/11 0000 98.0 99 22 130/80 95 Nasal 2.0L Cannula 10/10 1624 Nasal 2.0L Cannula 10/10 1600 98.1 99 20 130/60 95 Nasal 2.0L Cannula 10/10 1600 95 Nasal 2.0L Cannula Intake & Output 10/11 1600 10/11 0800 10/11 0000 Intake Total 100 200 Output Total 200 25 Balance -100 175 Intake, Oral 100 200 Number 1 1 Bowel Movements Output, Stool 200 25 Findings Pertinent Lab/Tha Results: Laboratory Tests 10/11 0350 Chemistry Sodium (137 - 145 mmol/L) 138 Potassium (3.5 - 5.1 mmol/L) 4.2 Chloride (98 - 107 mmol/L) 104 Carbon Dioxide (22 - 30 mmol/L) 24 Anion Gap (5 - 16) 10 BUN (7 - 17 mg/dL) 16 Creatinine (0.5 - 1.0 mg/dL) 0.5 Estimated GFR (>60 ml/min) > 60 BUN/Creatinine Ratio (7 - 25 %) 32.0 H Hematology CBC w Diff MAN DIFF ORDERED WBC (4.8 - 10.8 /CUMM) 17.5 H RBC (4.20 - 5.40 /CUMM) 4.50 Hgb (12.0 - 16.0 G/DL) 10.8 L Hct (37 - 47 %) 33.9 L MCV (81.0 - 99.0 FL) 75.2 L MCH (27.0 - 31.0 PG) 23.9 L MCHC (33.0 - 37.0 G/DL) 31.8 L RDW (11.5 - 14.5 %) 24.2 H Plt Count (130 - 400 /CUMM) 180 MPV (7.4 - 10.4 FL) 7.5 Gran % (42.2 - 75.2 %) 80.1 H Lymphocytes % (20.5 - 51.1 %) 12.8 L Monocytes % (1.7 - 9.3 %) 7.1 Eosinophils % (0 - 5 %) 0 Basophils % (0.0 - 2.0 %) 0 Absolute Granulocytes (1.4 - 6.5 /CUMM) 14.1 H Segmented Neutrophils (42.2 - 75.2 %) 79 H Band Neutrophils (0.0 - 5.0 %) 9 H Absolute Lymphocytes (1.2 - 3.4 /CUMM) 2.2 Lymphocytes (20.5 - 51.1 %) 7 L Monocytes (1.7 - 9.3 %) 5 Absolute Monocytes (0.10 - 0.60 /CUMM) 1.2 H Absolute Eosinophils (0.0 - 0.7 /CUMM) 0 Absolute Basophils (0.0 - 0.2 /CUMM) 0 Platelet Estimate (ADEQUATE) ADEQUATE Polychromasia 1+ Anisocytosis 1+ Target Cells 1+ [place] Cells FEW Elliptocytes 1+
--- NOTE | 2017-10-11 13:45 | RADIOLOGY REPORT ---
XR PORTABLE CHEST CLINICAL INFORMATION: Crackle/fluid overload. COMPARISON: Chest x-ray 10/06/2017. TECHNIQUE: Portable frontal view of the chest was obtained. FINDINGS: Multiple bilateral pulmonary nodules are similar to the previous examination in keeping with known metastatic disease. There is central vascular congestion without overt edema. No pleural effusion or pneumothorax. Cardiac silhouette and osseous structures are stable. IMPRESSION: Multiple bilateral pulmonary nodules are similar to prior examinations in keeping with known metastatic disease. There is central vascular congestion without pulmonary edema. No pleural effusion.
[2017-10-11 16:00] VITALS: BP 122/58
--- NOTE | 2017-10-11 18:31 | RADIOLOGY REPORT ---
EXAMINATION: XR PORTABLE CHEST CLINICAL INFORMATION: CHF. Fluid overload. COMPARISON: Chest x-ray from earlier in the afternoon on 10/11/2017. TECHNIQUE: Portable frontal view of the chest was obtained. FINDINGS: Scattered pulmonary nodules are again present in both lungs, consistent with known metastatic disease. Mild central vascular prominence is without significant change. No airspace opacities or pleural effusions are seen. The cardiomediastinal silhouette is normal. No acute osseous abnormality is seen. IMPRESSION: Multiple pulmonary nodules from known metastatic disease. Mild central vascular prominence. No new airspace opacities or pleural effusions.
--- NOTE | 2017-10-11 18:32 | Event Note ---
Event Note Event Note: At around 6 PM, patient was very dyspneic, she was having cough and congestion, unable to clear secretions, requiring 4 L oxygen supplementation, baseline was 2 L. * Vitals were stable - she is afebrile, heart rate 80, respiratory rate 18, blood pressure 130/70, saturating at 92 on 4 L. Oxygen requirement went up to 4 L from 2l * Blood sugar 150 * She denies any chest pain, palpitations. * However she reports shortness of breath associated with cough and chest congestion. * She reports that she couldn't bring out her secretions. * Chest exam she has crackles, inspiratory, expiratory wheezes, rhonchus bilaterally * Acute hypoxic respiratory failure most likely from inability to clear secretions and pooling of secretions. * Lower respiratory cultures were sent. * Bed Side suction was done * Stat chest x-ray was ordered which showed Multiple pulmonary nodules from known metastatic disease. Mild central vascular prominence. No new airspace opacities or pleural effusions. * Patient was given albuterol breathing treatment at bedside * She was given 1 dose of IV Lasix 20 mg emperically * She was given 2 mg morphine for pain * ABG was done at bedside which showed metabolic acidosis 7.29, 34,95,16 She continues to be uncomfortable. Ordered lab work including ICU bundle, CBC and lactate to evaluate the renal function, and any infectious process. She has been having increasing secretions, which likely is making her uncomfortable. She is to get suction done, w/ [facility]. Initital thoughts were if she is still continues to have dyspnea and tachycardia( current HR 100-120's), would consider CTA chest for r/o PE, and CT abdomen w/ contrast to r/o any ischemia which would spanish moss picker any infectious source too. Discussed the risks vs benefits with the family, and the family agrees. Upon reviewing CBC, which showed worsening leucocytosis w/ granulocytosis( with left shift ), she was started on Ceftriaxone since the gram stain of LRC revealed many gram positive cocci. Blood cultures drawn prior to the administration of the abx.
[2017-10-11 20:46] LABS: ABSOLUTE BASOPHIL COUNT 0 /CUMM (0.0-0.2); ABSOLUTE EOSINOPHIL COUNT 0 /CUMM (0.0-0.7); ABSOLUTE GRANULOCYTE CT 17.4 /CUMM (1.4-6.5); ABSOLUTE LYMPH COUNT 0.7 /CUMM (1.2-3.4); BASOPHIL % 0 % (0.0-2.0); EOSINOPHIL % 0 % (0-5); GRANULOCYTE % 90.9 % (42.2-75.2); HEMATOCRIT 33.7 % (37-47); MEAN CORPUSCULAR HGB 23.9 PG (27.0-31.0); MEAN CORPUSCULAR HGB CONC 31.7 G/DL (33.0-37.0); MEAN CORPUSCULAR VOLUME 75.4 FL (81.0-99.0); MEAN PLATELET VOLUME 7.6 FL (7.4-10.4); PLATELET COUNT 243 /CUMM (130-400); RBC DISTRIBUTION WIDTH 23.6 % (11.5-14.5); RED BLOOD CELL CT 4.47 /CUMM (4.20-5.40); WHITE BLOOD CELL COUNT 19.2 /CUMM (4.8-10.8)
--- NOTE | 2017-10-11 21:43 | Sepsis Event Note ---
Sepsis Event Note Severe Sepsis Severe Sepsis Present: Yes Severe Sepsis Actions Taken: Blood Cultures x2, Lactic Acid x2, IV Broad Spectrum Abx, IV Fluids- NS or LR Septic Shock Septic Shock Present: No Event Note Event Note: Chronology of events: Around 745 PM- Ordered lab work including ICU bundle, CBC and lactate to evaluate renal function, and any infectious process. She has been having increasing secretions, which likely is making her uncomfortable. TRC done w/ suction. Initital thoughts were if she is still continues to have dyspnea and tachycardia( current HR 100-120's), would consider CTA chest for r/o PE, and CT abdomen w/ contrast to r/o any ischemia which would seed cone picker any infectious source. Although last cxr done on did not show any e/o consolidation. Discussed the risks vs benefits with the family, and the family agrees. ABG was done at bedside which showed metabolic acidosis 7.29, 34,95,16. Abdominal exam did not reveal any guarding or rigidity, but was very uncomfortable when palpated; and clinical evaluatio of acute abdomen from mesenteric ischemia couldnt be ruled out. Upon reviewing CBC, which showed worsening leucocytosis w/ granulocytosis( with left shift ), she was started on abx since the gram stain of LRC revealed many gram positive cocci. Blood cultures drawn prior to the administration of the abx - Ceftazidime and Vancomycin to broaden the coverage for healthcare associated microbes given her recent exposure to health care facility ( surgery done on 09/26). Would consider anerobic coverage, if intra-abdominal source is found on radiological tests. Although lung infection seems likely, last cxr did not reveal any consolidation. She also had a recent abdominal surgery, which would make the intra-abdominal infection possible, which needs to be ruled out. It was notified by the nursing staff that she has been having serous discharge around the surgical site, which seemed to be from the intrabdominal wall, and the last ct scan abdomen revealed anasarca. 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 ICU bundle revealed LA 5.9, with normal renal function. She was started on NS 1000ml bolus, and was to be given upto 3L in the next 2-4 hrs as per sepsis guidelines. Upon reviewing her urine output after Blake catheter was placed this pm, she had only 20 ml of urine output in the last few hours, it was thought prudent to continue the fluids. BP remained stable in between SBP 120-130/DBP 60 -65, MI 118. Informed the family of the change in clinical status. Discussed w/ the pts mago who was agreeable to get CT scan chest and abdomen/pelvis w/ contrast to r/o any ischemia also. Given no e/o infectious source on recent CT scans, we discussed w/ the attending physician extensively and thoguht prudent to r/o any infectious sources. Consent for CT scan on the chart. Informed the attending insurance application investigator. Discussed w/ the Radiology about the timing of the scans, and we agreed that she will try to get the CT scan of chest and get the CT abdomen and pelvis immediately to get good images. Ideally, she would need two boluses, which could be avoided if the technique is right at the time of imaging to visualize the ischemic areas. Sepsis Focused Exam Sepsis Cardiac Exam: Tachycardia Sepsis Resp Exam: Ronchi Sepsis Cap Refill Exam: <2 Sec Sepsis Peripheral Pulse Exam: Normal Sepsis Peripheral Pulse Location: Dorsalis Pedis Sepsis Skin Exam (color): Normal for Ethnicity Skin Temp/Moisture Exam: Warm/Dry
[2017-10-12] VITALS: BP 110/70
--- NOTE | 2017-10-12 00:42 | CT SCAN REPORT ---
EXAMINATION: CTA CHEST WITHOUT AND WITH CONTRAST (PE STUDY) CT ABDOMEN with contrast CLINICAL INFORMATION: Acute decompensation of respiratory status. Clinical concern regarding pulmonary embolus. Lactic acidosis. COMPARISON: Portions of a previous CT 10/08/19 TECHNIQUE: Prior to contrast administration localization images were obtained. After the administration of 95 mL of intravenous [id number], Multidetector helical CT images were obtained through the thorax. Reformatted images in the coronal and sagittal planes were obtained at the acquisition workstation. Multidetector CT of the abdomen Postprocessing was performed. Maximum intensity projections were developed. Multiplanar reformatting. DLP: 1734 mGy-cm. FINDINGS: There is significant artifact. This is at least partially due to positioning the upper extremities and habitus. The bolus timing on this study was acceptable for visualization of the pulmonary arterial tree. There are no intraluminal pulmonary arterial filling defects present to suggest pulmonary embolism. CHEST: LUNG: There is decreased caliber of the distal trachea and mainstem bronchi. There may be some retained secretions in the distal trachea. There are innumerable varying sized widely distributed pulmonary nodules. In addition there is underlying diffuse nodularity. No convincing alveolar edema. PLEURA: There is no significant pleural fluid. There is no pneumothorax MEDIASTINUM: Prominent retrocaval pretracheal lymph nodes. Top normal aorticopulmonary window lymph nodes. I suspect bilateral hilar adenopathy. Limited assessment of the esophagus. VASCULAR: There is no thoracic aortic aneurysm or dissection. There is [place] coronary calcification. There is a trace amount of pericardial thickening. The main pulmonary artery is normal caliber CHEST WALL/AXILLA: No axillary or internal mammary lymphadenopathy. ABDOMEN/PELVIS: LIVER, GALLBLADDER, AND BILIARY TREE: There are in numerable varying sized widely distributed low attenuating hepatic masses. Some of these are confluent. Pattern suspicious for metastatic disease. No convincing intrahepatic biliary dilation. There is cholelithiasis. No biliary dilation. PANCREAS: No definite pancreatic mass SPLEEN: Limited assessment. No large abnormality ADRENAL GLANDS: Fullness of the left adrenal gland. KIDNEYS AND URETERS: No dilation of the intrarenal collecting system on either side. Cyst in the central upper left kidney. I suspect a calculus in the lower left kidney. GASTROINTESTINAL TRACT: Large amount fecal residue in the rectum. There is some change in caliber in the upper rectum. No distention of the proximal colon. There appears to be a colostomy in the left lower quadrant. This may represent a loop colostomy. There is no small bowel dilation. The stomach is not well distended. No abnormal appendix demonstrated ABDOMINAL WALL: There is diffuse stranding in the lower abdominal wall. Curvilinear density in the right mid abdominal wall. Fluid in the umbilicus. Left lower quadrant ostomy. Diffuse stranding. LYMPHOVASCULAR STRUCTURES AND FLUID: There is no abdominal aortic aneurysm. The portal vein enhances. There are some low attenuating lymph nodes in the peripancreatic region. No significant retroperitoneal adenopathy. There is a small amount amount of intraperitoneal fluid. BLADDER: There is a balloon catheter decompressing the urinary bladder PELVIC VISCERA: There is some thickening of the endometrium. No large adnexal mass. MUSCULOSKELETAL: No focal destructive lesion IMPRESSION: No definite pulmonary embolus. Widespread pulmonary and hepatic metastasis. Intraperitoneal fluid. There is some adenopathy in the peripancreatic region. Suspect a rectal mass
[2017-10-12 06:54] LABS: ABSOLUTE BASOPHIL COUNT 0 /CUMM (0.0-0.2); ABSOLUTE EOSINOPHIL COUNT 0 /CUMM (0.0-0.7); ABSOLUTE GRANULOCYTE CT 16.7 /CUMM (1.4-6.5); ABSOLUTE LYMPH COUNT 0.9 /CUMM (1.2-3.4); ABSOLUTE MONOCYTE COUNT 1.2 /CUMM (0.10-0.60); BASOPHIL % 0 % (0.0-2.0); EOSINOPHIL % 0 % (0-5); GRANULOCYTE % 88.7 % (42.2-75.2); HEMATOCRIT 31.3 % (37-47); MEAN CORPUSCULAR HGB 23.9 PG (27.0-31.0); MEAN CORPUSCULAR HGB CONC 31.5 G/DL (33.0-37.0); MEAN CORPUSCULAR VOLUME 75.9 FL (81.0-99.0); MEAN PLATELET VOLUME 7.9 FL (7.4-10.4); PLATELET COUNT 223 /CUMM (130-400); RBC DISTRIBUTION WIDTH 23.8 % (11.5-14.5); RED BLOOD CELL CT 4.12 /CUMM (4.20-5.40); WHITE BLOOD CELL COUNT 18.8 /CUMM (4.8-10.8)
--- NOTE | 2017-10-12 07:38 | PN- General Surgery ---
Surgical Brief Attending Note Brief Attending Note: Asked to see patient again because of question of sepsis and question of abdominal source of sepsis Reports of purulent drainage per umbilical port incision I examined the patient yesterday and there was clear straw-colored nonpurulent drainage consistent with ascites draining from her incision This morning when I examine her once again she has straw-colored clear nonpurulent ascites draining from her incision Her abdomen is globally uncomfortable with palpation but she does not have true tenderness or peritoneal findings Patient is clearly decompensating but she does not appear to have abdominal sepsis I think 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
[2017-10-12 08:00] VITALS: BP 118/64
--- NOTE | 2017-10-12 08:30 | PN- Resident CRCU ---
Subjective HPI/CRCU Issues: Active issues Sepsis unknown etiology Metabolic acidosis lactic acidosis #1 hypoglycemia- resolved #2 back pain #3 hyponatremia-resolved #4 thrombocytopenia, ruled out heparin-induced thrombocytopenia- resolving #5 right upper extremity venous thrombus #6 metabolic encephalopathy #7 anemia-iron deficiency anemia and anemia of chronic disease #8 metastatic rectal cancer with metastases to liver and lung #9 leukocytosis 24 Hour Events: Patient was seen and examined this morning. She is awake,lethargic, she is oriented to time place and person. She continues to be uncomfortable. Ordered lab work including ICU bundle, CBC and lactate to evaluate the renal function, and any infectious process. She has been having increasing secretions, which likely is making her uncomfortable. She is to get suction done, w/ TRC. unable to offer any complaints given her situation Afebrile, heart rate 110, respiratory rate 24, blood pressure 90/60, saturating at 92 on 4 L oxygen supplementation. Objective Vital Signs & I&O Last 8 Hrs of Vitals and I&O: Vital Signs Date Time Temp Pulse Resp B/P B/P Pulse O2 O2 Flow FiO2 Mean Ox Delivery Rate 10/12 1635 100 Nasal 4.0L Cannula 10/12 1600 99 Nasal 4.0L Cannula 10/12 1600 97.0 101 24 100/52 99 Nasal 4.0L Cannula 10/12 1357 100 Nasal 4.0L Cannula 10/12 1200 99 Nasal 4.0L Cannula Intake & Output 10/12 1600 Intake Total 665 Output Total 50 Balance 615 Intake, IV 665 Intake, Oral 0 Number 0 Bowel Movements Output, Urine 50 Intake & Output 10/12 1600 Intake Total 665 Output Total 50 Balance 615 Intake, IV 665 Intake, Oral 0 Number 0 Bowel Movements Output, Urine 50 Exam General Appearance: well developed/nourished, lethargic, mild distress Other Physical Findings: Neck: normal inspection, supple Respiratory: rhoncus, b/l crackles and wheezes Cardiovascular: regular rate/rhythm Peripheral Pulses: 2+ radial (R), 2+ radial (L) Gastrointestinal: normal bowel sounds, soft, colostomy bag in place , tender abdomen Rectal: heme positive stool Back: normal inspection Extremities: pedal edema Neurologic/Psych: lethargic Current Medications: Current Medications Sig/Rose Start time Last Medication Dose Route Stop Time Status Admin Albuterol Sulfate 3 ML Q6P PRN 10/11 0830 AC 10/11 INH 1757 Azithromycin 250 MG DAILY 10/11 1140 DC 10/11 PO 10/15 0901 1547 Benzonatate 100 MG TID 10/09 2100 AC 10/11 PO 1547 Ceftazidime 1,000 MG Q12 10/12 0900 AC 10/12 IV 0900 Ceftazidime 2,000 MG Q8H 10/12 0800 DC 10/12 IV 0614 Ceftazidime 2,000 MG Q8H 10/12 0700 DC IV Ceftazidime 2,000 MG IQ8 10/11 2200 DC 10/11 IV 2252 Ceftriaxone Sodium 1,000 MG 2100 10/11 2200 CAN IV Furosemide 20 MG ONCE ONE 10/11 1800 DC 10/11 IV 10/11 1801 1752 Guaifenesin 10 ML Q6P PRN 10/09 2015 AC 10/10 PO 0524 Levothyroxine Sodium 0.025 MG DAILY AC 10/11 0700 AC 10/11 PO 0802 Morphine Sulfate 2 MG Q4P PRN 10/12 1115 AC 10/12 IV 1147 Morphine Sulfate 2 MG ONCE ONE 10/11 2015 DC 10/11 IV 10/11 2016 2030 Morphine Sulfate 2 MG ONCE ONE 10/11 1845 DC 10/11 IV 10/11 1846 1842 Nystatin 1 BROWN BID PRN 10/07 2000 DC 10/07 TOP 2214 Omeprazole 40 MG DAILY AC 10/11 0700 AC 10/11 PO 0802 Ondansetron HCl 4 MG Q8P PRN 10/06 1845 AC 10/12 IV 1147 Oxycodone HCl 5 MG Q3P PRN 10/09 0400 AC 10/11 PO 1230 Polyethylene Glycol 17 GM DAILY PRN 10/08 1145 AC 10/10 PO 0856 Rivaroxaban 15 MG BID 10/10 1200 AC 10/11 PO 0933 Scopolamine HBr 1 PAT ONE ONE 10/12 1430 DC 10/12 TOP 10/12 1431 1629 Senna/Docusate Sodium 2 TAB DAILY PRN 10/11 0900 AC PO Sodium Chloride 1,000 ML Q13H 10/12 0545 AC 10/12 IV 0556 Sodium Chloride 1,000 ML BOLUS ONE 10/11 2200 DC 10/11 IV 10/11 2359 2204 Sodium Chloride 1,000 ML BOLUS ONE 10/11 2200 CAN IV 10/11 2259 Sodium Chloride 1,000 ML BOLUS ONE 10/11 2130 DC 10/11 IV 10/11 2329 2130 Vancomycin HCl 1,000 MG DAILY 10/12 1400 DC Dextrose/Water 250 ML IV Vancomycin HCl 1,500 MG DAILY 10/12 1400 AC 10/12 Dextrose/Water 250 ML IV 1415 Vancomycin HCl 1,000 MG ONCE ONE 10/11 2145 DC 10/11 Dextrose/Water 250 ML IV 10/11 2244 2254 Vitamin A/Vitamin D 1 BROWN BID 10/11 1300 AC 10/12 TOP 0900 Zinc Oxide 1 BROWN BID 10/11 1300 AC 10/12 TOP 0900 Impression/Plan Impression/Problem List Impression: Ms Russo is a 76-year-old woman with PMHx of 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 Montoya), coronary artery disease status post stents, type 2 diabetes, hypothyroidism hyperlipidemia, hypertension who was brought to the hospital after she was found to have severe back pain and altered mental status and found to have had hypoglycemia upto 22 mg/dl at the time of presentation which could have resulted in altered mentation. She was transferred to ICU for management of hypoglycemia and altered mental status At the time of admission vitals 98.3, pulse rate 84, respiration 22, blood pressure 109/53, 100% on room air. LABS WBC 17.5 (10/06)-->15.6(10/07) Hemoglobin 10.5--8.8 MCV 75.7 Platelet 424 (09/25)-->178 (09/27)--> 115 (09/28)-->80 09/29)-->88 (10/06)-->58 (10/07) Sodium 132-->132 ( chronic ) Potassium 3.9(10/06)-->3.3 BUN 22, creatinine 0.7 Glucose 22 (10/06) Insulin level 46.5(10/06) Lactic acid 1.7 Calcium 7.5 (10/06) corrected calcium 9.52. INR 1.55, PTT 41, fibrinogen activity 367. Chest x-ray: Stable pattern nodules throughout the right and left lung compatible with a history of pulmonary metastatic disease. No superimposed acute process. Low lung volumes. Head CT: Scattered chronic small vessel ischemic changes within the periventricular white matter. Otherwise unremarkable examination. No evidence of acute territorial infarct or hemorrhage. CT chest, abdomen pelvis without IV contrast- 1. Redemonstration of the rectal mass. Prominent adjacent perirectal lymph nodes are again noted as well. 2. No significant change in the appearance of bilateral pulmonary nodules consistent with metastatic disease. 3. Increased prominence of diffuse hepatic masses consistent with metastatic disease. Increase in small volume ascites. 4. No new consolidation in the lungs. No evidence of pulmonary edema. 5. There is no free air in the abdomen to suggest perforation. Venous Doppler upper extremity:Occlusive venous thrombus involving the right basilic and right cephalic veins. Lumbar spine MRI With and without sowmya : - This is a limited motion degraded study. There is no evidence of spinal metastatic disease. No enhancing epidural masses. No acute fractures. - Mild to moderate spondylosis at the L3-L4, L4-L5, and L5-S1 levels. There is no severe central canal stenosis and there is no severe foraminal stenosis within the lumbar spine. Assessment and plan Etiology for her acute change in mental status is likely due to hypoglycemia, likely secondary to sulfonylurea use or metastasis to liver. Since she does not have any significant renal dysfunction, and has been on sulfonylureas for a while, it seems unlikely that it could be due to sulfonylureas. Other oral hypoglycemics that she is currently on are not known to be a reason for hypoglycemia. The treatment for sulfonyl induced hypoglycemia ideally results within first 24-48 hours. Other etiologies such as neuroendocrine cells from GI tract metastasizing to liver, or decreased gluconeogenesis ability of liver are likely. Elevated insulin level, makes me think that intact beta cells are responsible for the secretion, and limited gluconeogenic reserve is possible given his liver mets. Given the history of cancer, would likely have higher glucose demand secondary to [place] effect. Problem list: Sepsis of unknown origin, metabolic acidosis, lactic acidosis #1 hypoglycemia #2 back pain #3 hyponatremia-chronic #4 thrombocytopenia, rule out heparin-induced thrombocytopenia #5 right upper extremity venous thrombus #6 metabolic encephalopathy #7 anemia-iron deficiency anemia and anemia of chronic disease #8 metastatic rectal cancer with metastases to liver and lung #9 leukocytosis Plan: Respiratory Infectious: sepsis of unknown origin/lactic acidosis/metabolic acidosis Patient had worsening leukocytosis with granulocytosis, left shift, tachycardia, lactic acidosis with Gram stain of lower respiratory cultures revealed staph aureus. Blood cultures results were pending. Patient was started on ceftaz and vancomycin to broaden the coverage for healthcare associated microbes. Although lung infection seems likely, last cxr did not reveal any consolidation. She also had a recent abdominal surgery, which would make the intra-abdominal infection possible, which needs to be ruled out. she has been having serous discharge around the surgical site, which seemed to be from the intrabdominal wall, and the last ct scan abdomen revealed anasarca. CT chest abdomen pelvis didn't reveal any infection. Pulmonary embolism was ruled out. * Continue IV ceftaz 1 g every 12, IV vancomycin 1.5 g daily pending blood cultures * Respiratory culture positive for staph aureus * Urine culture positive for gram-negative rods pending sensitivities * Follow up final cultures and sensitivities * Monitor leukocytosis/fever * Continue IV fluids given lactic acidosis and sepsis * Trending lactic acid * ABG for her respiratory status worsens * Last ABG showed pH 7.25, 16, 36 * Low threshold for intubation * TRC nebs * Needs hourly suction * Provide supplemental oxygen to maintain saturation above 90 Circulatory/CVS: Borderline hypotension * Continue to monitor vitals every hourly. * Hold antihypertensives at this time. * Takes quinapril at home for hypertension, will hold the medication given her borderline blood pressure 90/50 * Will provide adequate hydration Hematology: Anemia * Guaiac positive stools, given history of rectal cancer and recent surgery. Thrombocytopenia Change in platelet count-thrombocytopenia that was noted at the time of admission, with normal platelet count prior to her hospital admission which was around 7-10 days ago, with more than 50% drop in platelets, and thrombosis makes us think that she might have developed heparin-induced thrombocytopenia, which should be investigated. * For thrombocytopenia, started argatroban after discussing risks versus benefits with the patient's family. * Argatroban drip was stopped 10/10/2017 * Started Xarelto 15 mg twice daily for right upper extremity DVT * Consider long-term anticoagulation, if the patient's family wishes. * Follow-up heparin-induced thrombocytopenia panel- neg. * No heparin products at this time. Metabolic: Hypoglycemia she was admitted to ICU for severe hypoglycemia with glucose leve in the 20s. When she was in rehab, she was on Janumet, Jardiance, glimepiride and Humalog. As per her daughter, her po intake has been poor. she was on 10% dextrose drip. Her random cortisol was 24.3. But her insulin level was 46.5. patient received Octrotide at around 2 am. Since then, her glucose level has been more stable. * The underlying caueses of severe hypoglycemia-- poor intake, sulfonyureas, extensive metastatic lesions and liver dysfunction * D10 dextrose drip was discontinued given her serum glucose 135 * No further requirements for octreotide or glucagon * Blood glucose maintaining at stable levels * Will monitor FSG every 2-4 hours chronic hyponatremia she has moderate hyponatremia that is chronic and associated with no symptoms/ no intracranial pathology * 127- 132 * Continue to monitor sodium level * Will treat aggressively if sodium drops below 120 with the symptoms headache, fatigue, nausea, vomiting, gait disturbances, confusion. -------- Alimentary: If she is not able to take anything p.o., would consider IV medications in her. Refusing oral medications Poor oral intake ----- Neurology: * Monitor for an acute altered mental changes. * Seizure precautions. * Use morphine 2 mg every 4 hourly, discussed with the family about side effects. stage IV rectal cancer with liver and lung metastasis status post colectomy and colostomy She was seen in consultation by radiation oncologist on 09/29/17 for her known stage IV rectal carcinoma with widespread metastatic disease. She is status post diverting colostomy on 09/26/17 and was subsequently discharged to an extended care facility. She continues with pain presumably from the rectal mass. She has expressed her desire to move forward with palliative radiation therapy. Palliative external beam radiation treatments will therefore proceed as planned. * A total of 10 fractions (3000 cGy) is being prescribed. * She received 2 treatments so far 10/10 and 10/11. Postponed further palliative radiotherapy given her sickness * History of rectal cancer, would need a discussion about goals of care * Continue to monitor abnormal liver chemistries. * Liver biopsy, if the patient's family would like to pursue further. * No systemic chemotherapy at this time until she begins functionality. * palliative specialist on board * Radiation oncologist on board Continue home medications Hypothyroidism refusing oral levothyroxine 25 g Hyperlipidemia -stopped Lipitor given transaminitis History of diabetes mellitus Accu-Cheks. Held home meds given hypoglycemia Hypertension held home medication given hypotension at time of admission Stage IV rectal cancer with metastasis to lung and liver status post diverticular colostomy 09/27/2017 Coronary artery disease status post stents DVT prophylaxis: Subcutaneous heparin has been discontinued. Alps for now. Housekeeping ICU #1 Central line- none #2 Arterial line- none #3 Blake catheter- yes- 10/11 #4 Rectal tube - none #5 NG tube - none #6 IV/peripheral line- yes. 10/07/17 #7 IV drips- NS #8 Vent settings: none #9 pressors: none Problem List: 1. Thrombocytopenia 2. DVT (deep venous thrombosis) 3. Metastatic disease 4. Intractable pain 5. Rectal carcinoma 6. Colostomy in place 7. Metastases to the liver 8. Rectal mass Pain Ratin Tomorrow's Labs & Rationales: cbc icu bundle Plan DVT/Prophylaxis: mechanical, pharmacological Code Status: Full Code
--- NOTE | 2017-10-12 08:37 | PN- Oncology ---
Subjective Subjective: She has a little bit more trouble talking today. She was noted to have increasing shortness of breath. She underwent CTA of the chest/abdomen/pelvis overnight. She did not have any obvious PE. Scan was relatively unchanged from previous. Review of Systems Constitutional: Reports: weakness. Denies: fever. EENTM: Reports: epistaxis, throat pain, throat swelling, mouth pain. Cardiovascular: Denies: chest pain. Respiratory: Reports: cough, short of breath. Gastrointestinal: Reports: abdominal pain. Neurological/Psychological: Reports: confusion. All Other Systems: Reviewed and Negative Objective Vital Signs and I&Os Vital Signs Date Time Temp Pulse Resp B/P B/P Pulse O2 O2 Flow FiO2 Mean Ox Delivery Rate 10/12 0400 100 Nasal 4.0L Cannula 10/12 0109 97 Nasal 4.0L Cannula 10/12 0000 94 Nasal 4.0L Cannula 10/12 0000 97.2 119 28 110/70 94 Nasal 4.0L Cannula 10/11 2055 94 Nasal 4.0L Cannula 10/11 1757 92 Nasal 4.0L Cannula 10/11 1631 Nasal 2.0L Cannula 10/11 1600 97.6 112 22 122/58 94 Nasal 2.0L Cannula 10/11 1600 94 Nasal 2.0L Cannula 10/11 1403 Nasal 2.0L Cannula 10/11 1210 94 Nasal 2.0L Cannula Intake & Output 10/12 1600 10/12 0800 10/12 0000 10/11 1600 10/11 0800 10/11 0000 Intake Total 1615 250 100 200 Output Total 135 40 100 200 25 Balance 1480 -40 150 -100 175 Intake, IV 1375 10 Intake, Oral 240 240 100 200 Number 2 2 1 1 Bowel Movements Output, Stool 10 100 200 25 Output, Urine 135 30 Physical Exam: General Appearance: alert, awake, mild distress, obese, somnolent Head: atraumatic Eyes: Bilateral: PERRL. Ears, Nose, Throat: normal pharynx, dry blood in nares Respiratory: rhonchi, quiet respiration, tachypnea Cardiovascular: tachycardia, no murmurs Gastrointestinal: normal bowel sounds, tenderness, LLQ colostomy in place, stoma pink Extremities: upper and lower extremity edema Neurologic/Psych: awake, alert, oriented x 3 Lymphatic: no anterior cervical guille Current Medications: Current Medications Sig/Rose Start time Last Medication Dose Route Stop Time Status Admin Albuterol Sulfate 3 ML Q6P PRN 10/11 0830 AC 10/11 INH 1757 Azithromycin 250 MG DAILY 10/11 1140 DC 10/11 PO 10/15 0901 1547 Benzonatate 100 MG TID 10/09 2100 AC 10/11 PO 1547 Ceftazidime 2,000 MG Q12 10/12 0900 UNVr IV Ceftazidime 2,000 MG Q8H 10/12 0800 DC 10/12 IV 0614 Ceftazidime 2,000 MG Q8H 10/12 0700 DC IV Ceftazidime 2,000 MG IQ8 10/11 2200 DC 10/11 IV 2252 Ceftriaxone Sodium 1,000 MG 2100 10/11 2200 CAN IV Furosemide 20 MG ONCE ONE 10/11 1800 DC 10/11 IV 10/11 1801 1752 Furosemide 20 MG ONCE ONE 10/11 1230 DC 10/11 IV 10/11 1231 1230 Guaifenesin 10 ML Q6P PRN 10/09 2015 AC 10/10 PO 0524 Levothyroxine Sodium 0.025 MG DAILY AC 10/11 0700 AC 10/11 PO 0802 Morphine Sulfate 2 MG ONCE ONE 10/11 2014 DC 10/11 IV 10/11 2016 2030 Morphine Sulfate 2 MG ONCE ONE 10/11 1845 DC 10/11 IV 10/11 1846 1842 Nystatin 1 BROWN BID PRN 10/07 2000 DC 10/07 TOP 2214 Omeprazole 40 MG DAILY AC 10/11 0700 AC 10/11 PO 0802 Ondansetron HCl 4 MG Q8P PRN 10/06 1845 AC IV Oxycodone HCl 5 MG Q3P PRN 10/09 0400 AC 10/11 PO 1230 Polyethylene Glycol 17 GM DAILY PRN 10/08 1145 AC 10/10 PO 0856 Rivaroxaban 15 MG BID 10/10 1200 AC 10/11 PO 0933 Senna/Docusate Sodium 2 TAB DAILY PRN 10/11 0900 AC PO Senna/Docusate Sodium 2 TAB DAILY PRN 10/08 1015 DC PO 10/11 0859 Sodium Chloride 1,000 ML Q13H 10/12 0545 AC 10/12 IV 0556 Sodium Chloride 1,000 ML BOLUS ONE 10/11 2200 DC 10/11 IV 10/11 2359 2204 Sodium Chloride 1,000 ML BOLUS ONE 10/11 2200 CAN IV 10/11 225 Sodium Chloride 1,000 ML BOLUS ONE 10/11 2130 DC 10/11 IV 10/11 2329 2130 Vancomycin HCl 1,000 MG DAILY 10/12 1400 UNir Dextrose/Water 250 ML IV Vancomycin HCl 1,000 MG ONCE ONE 10/11 2145 DC 10/11 Dextrose/Water 250 ML IV 10/11 2244 2254 Vitamin A/Vitamin D 1 BROWN BID 10/11 1300 AC 10/11 TOP 2031 Zinc Oxide 1 BROWN BID 10/11 1300 AC 10/11 TOP 2031 Results Last 24 Hours of Lab Results: Laboratory Tests 10/12 10/12 10/12 0631 0620 0515 Chemistry Sodium (137 - 145 mmol/L) 138 Potassium (3.5 - 5.1 mmol/L) 4.6 Chloride (98 - 107 mmol/L) 106 Carbon Dioxide (22 - 30 mmol/L) 21 L Anion Gap (5 - 16) 12 BUN (7 - 17 mg/dL) 19 H Creatinine (0.5 - 1.0 mg/dL) 0.7 Estimated GFR (>60 ml/min) > 60 Glucose (65 - 99 mg/dL) 142 H Lactic Acid (0.7 - 2.1 mmol/L) Cancelled 4.2 H Calcium (8.4 - 10.2 mg/dL) 7.5 L Phosphorus (2.5 - 4.5 mg/dL) 4.8 H Magnesium (1.6 - 2.3 mg/dL) 1.6 Total Bilirubin (0.2 - 1.3 mg/dL) 1.5 H AST (14 - 36 U/L) 124 H ALT (9 - 52 U/L) 59 H Albumin (3.5 - 5.0 g/dL) 1.7 L Hematology CBC w Diff MAN DIFF ORDERED WBC (4.8 - 10.8 /CUMM) 18.8 H RBC (4.20 - 5.40 /CUMM) 4.12 L Hgb (12.0 - 16.0 G/DL) 9.9 L Hct (37 - 47 %) 31.3 L MCV (81.0 - 99.0 FL) 75.9 L MCH (27.0 - 31.0 PG) 23.9 L MCHC (33.0 - 37.0 G/DL) 31.5 L RDW (11.5 - 14.5 %) 23.8 H Plt Count (130 - 400 /CUMM) 223 MPV (7.4 - 10.4 FL) 7.9 Gran % (42.2 - 75.2 %) 88.7 H Lymphocytes % (20.5 - 51.1 %) 4.8 L Monocytes % (1.7 - 9.3 %) 6.5 Eosinophils % (0 - 5 %) 0 Basophils % (0.0 - 2.0 %) 0 Absolute Granulocytes (1.4 - 6.5 /CUMM) 16.7 H Segmented Neutrophils (42.2 - 75.2 %) 75 Band Neutrophils (0.0 - 5.0 %) 15 H Absolute Lymphocytes (1.2 - 3.4 /CUMM) 0.9 L Lymphocytes (20.5 - 51.1 %) 6 L Monocytes (1.7 - 9.3 %) 4 Absolute Monocytes (0.10 - 0.60 /CUMM) 1.2 H Absolute Eosinophils (0.0 - 0.7 /CUMM) 0 Absolute Basophils (0.0 - 0.2 /CUMM) 0 Platelet Estimate (ADEQUATE) ADEQUATE Polychromasia 1+ Hypochromic-Microcytic 2+ Poikilocytosis 1+ Ovalocytes 1+ Elliptocytes FEW Other Body Source Fld Total RBCs Counted (%) 100 10/12 10/12 10/11 0115 0110 0 Blood Gas pH (7.35 - 7.45 PH) 7.25 *L pCO2 (35 - 45 TORR) 36 pO2 (80 - 100 TORR) 105 H HCO3 (21 - 28 MEQ/L) 16 L ABG O2 Sat (Measured) (>96.0 %) 97.0 P-50 (Temp Corrected) N Carboxyhemoglobin (1.5 - 5.0 %) 0.5 L O2 Concentration % 4L O2 Delivery Method N/C Chemistry Lactic Acid (0.7 - 2.1 mmol/L) 5.5 H Cancelled Miscellaneous Phlebotomy Draw Site LEFT RADIAL 10/11 Blood Gas pH (7.35 - 7.45 PH) 7.29 *L pCO2 (35 - 45 TORR) 34 L pO2 (80 - 100 TORR) 95 HCO3 (21 - 28 MEQ/L) 16 L ABG O2 Sat (Measured) (>96.0 %) 95.0 L P-50 (Temp Corrected) N Carboxyhemoglobin (1.5 - 5.0 %) 0.7 L O2 Concentration % 4L Temperature (97.0 - 100.0 FARH) 96.0 L O2 Delivery Method NC Chemistry Sodium (137 - 145 mmol/L) 137 Potassium (3.5 - 5.1 mmol/L) 4.9 Chloride (98 - 107 mmol/L) 105 Carbon Dioxide (22 - 30 mmol/L) 17 L Anion Gap (5 - 16) 15 BUN (7 - 17 mg/dL) 18 H Creatinine (0.5 - 1.0 mg/dL) 0.7 Estimated GFR (>60 ml/min) > 60 Glucose (65 - 99 mg/dL) 171 H Lactic Acid (0.7 - 2.1 mmol/L) 5.9 H Calcium (8.4 - 10.2 mg/dL) 8.0 L Phosphorus (2.5 - 4.5 mg/dL) 4.5 Magnesium (1.6 - 2.3 mg/dL) 1.8 Total Bilirubin (0.2 - 1.3 mg/dL) 1.7 H AST (14 - 36 U/L) 129 H ALT (9 - 52 U/L) 73 H Albumin (3.5 - 5.0 g/dL) 1.9 L Hematology CBC w Diff MAN DIFF ORDERED WBC (4.8 - 10.8 /CUMM) 19.2 H RBC (4.20 - 5.40 /CUMM) 4.47 Hgb (12.0 - 16.0 G/DL) 10.7 L Hct (37 - 47 %) 33.7 L MCV (81.0 - 99.0 FL) 75.4 L MCH (27.0 - 31.0 PG) 23.9 L MCHC (33.0 - 37.0 G/DL) 31.7 L RDW (11.5 - 14.5 %) 23.6 H Plt Count (130 - 400 /CUMM) 243 MPV (7.4 - 10.4 FL) 7.6 Gran % (42.2 - 75.2 %) 90.9 H Lymphocytes % (20.5 - 51.1 %) 3.8 L Monocytes % (1.7 - 9.3 %) 5.3 Eosinophils % (0 - 5 %) 0 Basophils % (0.0 - 2.0 %) 0 Absolute Granulocytes (1.4 - 6.5 /CUMM) 17.4 H Segmented Neutrophils (42.2 - 75.2 %) 81 H Band Neutrophils (0.0 - 5.0 %) 12 H Absolute Lymphocytes (1.2 - 3.4 /CUMM) 0.7 L Lymphocytes (20.5 - 51.1 %) 1 L Monocytes (1.7 - 9.3 %) 2 Absolute Monocytes (0.10 - 0.60 /CUMM) 1.0 H Eosinophils (0 - 5.0 %) 4 Absolute Eosinophils (0.0 - 0.7 /CUMM) 0 Absolute Basophils (0.0 - 0.2 /CUMM) 0 Platelet Estimate (ADEQUATE) ADEQUATE Hypochromic-Microcytic 1+ Poikilocytosis 1+ Anisocytosis 1+ Microcytic Cells 1+ Ovalocytes FEW Miscellaneous Phlebotomy Draw Site LEFT RADIAL Recent Imaging Studies: CTA Chest/abdomen/pelvis 10/11/2017: No definite pulmonary embolus. Widespread pulmonary and hepatic metastasis. Intraperitoneal fluid. There is some adenopathy in the peripancreatic region. Suspect a rectal mass. Assessment/Plan Assessment/Recommendations: Ms. 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 She was seen in radiation oncology office and was noted to be in severe pain. She was sent to [facility] for evaluation. On admission, she was noted to be somnolent and hypoglycemic. She was started on the 10% dextrose drip in addition to octreotide. Endocrinology was consulted. In addition, she was noted to have new thrombocytopenia with ana maria platelet count of 58,000. Her platelet count has significantly dropped as compared to recent admission. 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 She does have RUE DVT. HIT panel negative. She is now on rivaroxaban after platelet count has normalized on argatroban. She seems to have sepsis given clinical condition. She is now on vancomycin and ceftazidime. She is afebrile. Clinically, she is still in critical condition. Prognosis is poor with poor performance status. She is not a candidate for systemic therapy at the moment. If she continues to decline, hospice is reasonable for patient. Palliative care is following patient. Sepsis: -continue current antibiotics RUE DVT: -continue rivaroxaban Metastatic rectal cancer: -f/u outpatient -worsening PS, candidate for hospice if not improving with antibiotics/ intervention Please call [phone] with any questions or concerns. Problem List: 1. Intractable pain 2. Colostomy in place 3. Rectal carcinoma 4. Metastases to the liver 5. Metastatic disease
--- NOTE | 2017-10-12 12:23 | PN- Diabetes ---
Assessment/Plan Diabetes Assessment: This 76-year-old woman has a history of stage IV rectal cancer with metastases to lung and liver. She came into the hospital with change in mental status and evidence of hypoglycemia most likely due to sulphonylurea. She received octreotide. She is now off the sulfonylurea and other medicines for her diabetes. Her blood sugars have been in reasonable control. Her sugar this morning in the lab is 142. The patient has a great deal of pain and is on morphine. Plan: The patient sugars have been in a satisfactory range. Suggest observe the patient sugars off all medications for diabetes. Continue levothyroxine 25 mcg daily. Subjective Subjective: Very drowsy this morning Objective Last 24 Hrs of Vital Signs/I&O Vital Signs Date Time Temp Pulse Resp B/P B/P Pulse O2 O2 Flow FiO2 Mean Ox Delivery Rate 10/13 799 98 Nasal 4.0L Cannula 10/12 0800 97.7 109 21 118/64 99 Nasal 4.0L Cannula 10/12 0800 95 Nasal 4.0L Cannula 10/12 0400 100 Nasal 4.0L Cannula 10/12 0109 97 Nasal 4.0L Cannula 10/12 0000 94 Nasal 4.0L Cannula 10/12 0000 97.2 119 28 110/70 94 Nasal 4.0L Cannula 10/11 2055 94 Nasal 4.0L Cannula 10/11 1757 92 Nasal 4.0L Cannula 10/11 1631 Nasal 2.0L Cannula 10/11 1600 97.6 112 22 122/58 94 Nasal 2.0L Cannula 10/11 1600 94 Nasal 2.0L Cannula 10/11 1403 Nasal 2.0L Cannula Intake & Output 10/12 1600 10/12 0800 10/12 0000 Intake Total 1615 Output Total 135 40 Balance 1480 -40 Intake, IV 1375 Intake, Oral 240 Number 2 Bowel Movements Output, Stool 10 Output, Urine 135 30 Vital Signs Date Time Temp Pulse Resp B/P B/P Pulse O2 O2 Flow FiO2 Mean Ox Delivery Rate 10/12 0800 98 Nasal 4.0L Cannula 10/12 0800 97.7 109 21 118/64 99 Nasal 4.0L Cannula 10/12 0800 95 Nasal 4.0L Cannula 10/12 0400 100 Nasal 4.0L Cannula 10/12 0109 97 Nasal 4.0L Cannula 10/12 0000 94 Nasal 4.0L Cannula 10/12 0000 97.2 119 28 110/70 94 Nasal 4.0L Cannula 10/11 2055 94 Nasal 4.0L Cannula 10/11 1757 92 Nasal 4.0L Cannula 10/11 1631 Nasal 2.0L Cannula 10/11 1600 97.6 112 22 122/58 94 Nasal 2.0L Cannula 10/11 1600 94 Nasal 2.0L Cannula 10/11 1403 Nasal 2.0L Cannula Intake & Output 10/12 1600 10/12 0800 10/12 0000 Intake Total 1615 Output Total 135 40 Balance 1480 -40 Intake, IV 1375 Intake, Oral 240 Number 2 Bowel Movements Output, Stool 10 Output, Urine 135 30 Physical Exam General Appearance: lethargic Head: normal appearance Respiratory: normal breath sounds Cardiovascular: regular rate/rhythm Current Medications: Current Medications Sig/Rose Start time Last Medication Dose Route Stop Time Status Admin Albuterol Sulfate 3 ML Q6P PRN 10/11 0830 AC 10/11 INH 1757 Azithromycin 250 MG DAILY 10/11 1140 DC 10/11 PO 10/15 0901 1547 Benzonatate 100 MG TID 10/09 2100 AC 10/11 PO 1547 Ceftazidime 1,000 MG Q12 10/12 0900 AC 10/12 IV 0900 Ceftazidime 2,000 MG Q8H 10/12 0800 DC 10/12 IV 0614 Ceftazidime 2,000 MG Q8H 10/12 0700 DC IV Ceftazidime 2,000 MG IQ8 10/11 2200 DC 10/11 IV 2252 Ceftriaxone Sodium 1,000 MG 2100 10/11 2200 CAN IV Furosemide 20 MG ONCE ONE 10/11 1800 DC 10/11 IV 10/11 1801 1752 Furosemide 20 MG ONCE ONE 10/11 1230 DC 10/11 IV 10/11 1231 1230 Guaifenesin 10 ML Q6P PRN 10/09 2015 AC 10/10 PO 0524 Levothyroxine Sodium 0.025 MG DAILY AC 10/11 0700 AC 10/11 PO 0802 Morphine Sulfate 2 MG Q4P PRN 10/12 1115 AC 10/12 IV 1147 Morphine Sulfate 2 MG ONCE ONE 10/11 2015 DC 10/11 IV 10/11 2016 2030 Morphine Sulfate 2 MG ONCE ONE 10/11 1845 DC 10/11 IV 10/11 1846 1842 Nystatin 1 BROWN BID PRN 10/07 2000 DC 10/07 TOP 2214 Omeprazole 40 MG DAILY AC 10/11 0700 AC 10/11 PO 0802 Ondansetron HCl 4 MG Q8P PRN 10/06 1845 AC 10/12 IV 1147 Oxycodone HCl 5 MG Q3P PRN 10/09 0400 AC 10/11 PO 1230 Polyethylene Glycol 17 GM DAILY PRN 10/08 1145 AC 10/10 PO 0856 Rivaroxaban 15 MG BID 10/10 1200 AC 10/11 PO 0933 Senna/Docusate Sodium 2 TAB DAILY PRN 10/11 0900 AC PO Sodium Chloride 1,000 ML Q13H 10/12 0545 AC 10/12 IV 0556 Sodium Chloride 1,000 ML BOLUS ONE 10/11 2200 DC 10/11 IV 10/11 2359 2204 Sodium Chloride 1,000 ML BOLUS ONE 10/11 2200 CAN IV 10/11 2259 Sodium Chloride 1,000 ML BOLUS ONE 10/11 2130 DC 10/11 IV 10/11 2329 2130 Vancomycin HCl 1,000 MG DAILY 10/12 1400 DC Dextrose/Water 250 ML IV Vancomycin HCl 1,500 MG DAILY 10/12 1400 AC Dextrose/Water 250 ML IV Vancomycin HCl 1,000 MG ONCE ONE 10/11 2145 DC 10/11 Dextrose/Water 250 ML IV 10/11 2244 2254 Vitamin A/Vitamin D 1 BROWN BID 10/11 1300 AC 10/12 TOP 0900 Zinc Oxide 1 BROWN BID 10/11 1300 AC 10/12 TOP 0900 Findings Pertinent Lab/Tha Results: Laboratory Tests 10/12 10/12 10/12 1130 0631 0620 Chemistry Lactic Acid (0.7 - 2.1 mmol/L) Pending Cancelled 4.2 H 10/12 10/12 10/12 0515 0115 0110 Blood Gas pH (7.35 - 7.45 PH) 7.25 *L pCO2 (35 - 45 TORR) 36 pO2 (80 - 100 TORR) 105 H HCO3 (21 - 28 MEQ/L) 16 L ABG O2 Sat (Measured) (>96.0 %) 97.0 P-50 (Temp Corrected) N Carboxyhemoglobin (1.5 - 5.0 %) 0.5 L O2 Concentration % 4L O2 Delivery Method N/C Chemistry Sodium (137 - 145 mmol/L) 138 Potassium (3.5 - 5.1 mmol/L) 4.6 Chloride (98 - 107 mmol/L) 106 Carbon Dioxide (22 - 30 mmol/L) 21 L Anion Gap (5 - 16) 12 BUN (7 - 17 mg/dL) 19 H Creatinine (0.5 - 1.0 mg/dL) 0.7 Estimated GFR (>60 ml/min) > 60 Glucose (65 - 99 mg/dL) 142 H Lactic Acid (0.7 - 2.1 mmol/L) 5.5 H Calcium (8.4 - 10.2 mg/dL) 7.5 L Phosphorus (2.5 - 4.5 mg/dL) 4.8 H Magnesium (1.6 - 2.3 mg/dL) 1.6 Total Bilirubin (0.2 - 1.3 mg/dL) 1.5 H AST (14 - 36 U/L) 124 H ALT (9 - 52 U/L) 59 H Albumin (3.5 - 5.0 g/dL) 1.7 L Hematology CBC w Diff MAN DIFF ORDERED WBC (4.8 - 10.8 /CUMM) 18.8 H RBC (4.20 - 5.40 /CUMM) 4.12 L Hgb (12.0 - 16.0 G/DL) 9.9 L Hct (37 - 47 %) 31.3 L MCV (81.0 - 99.0 FL) 75.9 L MCH (27.0 - 31.0 PG) 23.9 L MCHC (33.0 - 37.0 G/DL) 31.5 L RDW (11.5 - 14.5 %) 23.8 H Plt Count (130 - 400 /CUMM) 223 MPV (7.4 - 10.4 FL) 7.9 Gran % (42.2 - 75.2 %) 88.7 H Lymphocytes % (20.5 - 51.1 %) 4.8 L Monocytes % (1.7 - 9.3 %) 6.5 Eosinophils % (0 - 5 %) 0 Basophils % (0.0 - 2.0 %) 0 Absolute Granulocytes (1.4 - 6.5 /CUMM) 16.7 H Segmented Neutrophils (42.2 - 75.2 %) 75 Band Neutrophils (0.0 - 5.0 %) 15 H Absolute Lymphocytes (1.2 - 3.4 /CUMM) 0.9 L Lymphocytes (20.5 - 51.1 %) 6 L Monocytes (1.7 - 9.3 %) 4 Absolute Monocytes (0.10 - 0.60 /CUMM) 1.2 H Absolute Eosinophils (0.0 - 0.7 /CUMM) 0 Absolute Basophils (0.0 - 0.2 /CUMM) 0 Platelet Estimate (ADEQUATE) ADEQUATE Polychromasia 1+ Hypochromic-Microcytic 2+ Poikilocytosis 1+ Ovalocytes 1+ Elliptocytes FEW Miscellaneous Phlebotomy Draw Site LEFT RADIAL Other Body Source Fld Total RBCs Counted (%) 100 10/11 Chemistry Sodium (137 - 145 mmol/L) 137 Potassium (3.5 - 5.1 mmol/L) 4.9 Chloride (98 - 107 mmol/L) 105 Carbon Dioxide (22 - 30 mmol/L) 17 L Anion Gap (5 - 16) 15 BUN (7 - 17 mg/dL) 18 H Creatinine (0.5 - 1.0 mg/dL) 0.7 Estimated GFR (>60 ml/min) > 60 Glucose (65 - 99 mg/dL) 171 H Lactic Acid (0.7 - 2.1 mmol/L) Cancelled 5.9 H Calcium (8.4 - 10.2 mg/dL) 8.0 L Phosphorus (2.5 - 4.5 mg/dL) 4.5 Magnesium (1.6 - 2.3 mg/dL) 1.8 Total Bilirubin (0.2 - 1.3 mg/dL) 1.7 H AST (14 - 36 U/L) 129 H ALT (9 - 52 U/L) 73 H Albumin (3.5 - 5.0 g/dL) 1.9 L Hematology CBC w Diff MAN DIFF ORDERED WBC (4.8 - 10.8 /CUMM) 19.2 H RBC (4.20 - 5.40 /CUMM) 4.47 Hgb (12.0 - 16.0 G/DL) 10.7 L Hct (37 - 47 %) 33.7 L MCV (81.0 - 99.0 FL) 75.4 L MCH (27.0 - 31.0 PG) 23.9 L MCHC (33.0 - 37.0 G/DL) 31.7 L RDW (11.5 - 14.5 %) 23.6 H Plt Count (130 - 400 /CUMM) 243 MPV (7.4 - 10.4 FL) 7.6 Gran % (42.2 - 75.2 %) 90.9 H Lymphocytes % (20.5 - 51.1 %) 3.8 L Monocytes % (1.7 - 9.3 %) 5.3 Eosinophils % (0 - 5 %) 0 Basophils % (0.0 - 2.0 %) 0 Absolute Granulocytes (1.4 - 6.5 /CUMM) 17.4 H Segmented Neutrophils (42.2 - 75.2 %) 81 H Band Neutrophils (0.0 - 5.0 %) 12 H Absolute Lymphocytes (1.2 - 3.4 /CUMM) 0.7 L Lymphocytes (20.5 - 51.1 %) 1 L Monocytes (1.7 - 9.3 %) 2 Absolute Monocytes (0.10 - 0.60 /CUMM) 1.0 H Eosinophils (0 - 5.0 %) 4 Absolute Eosinophils (0.0 - 0.7 /CUMM) 0 Absolute Basophils (0.0 - 0.2 /CUMM) 0 Platelet Estimate (ADEQUATE) ADEQUATE Hypochromic-Microcytic 1+ Poikilocytosis 1+ Anisocytosis 1+ Microcytic Cells 1+ Ovalocytes FEW 10/110 Blood Gas pH (7.35 - 7.45 PH) 7.29 *L pCO2 (35 - 45 TORR) 34 L pO2 (80 - 100 TORR) 95 HCO3 (21 - 28 MEQ/L) 16 L ABG O2 Sat (Measured) (>96.0 %) 95.0 L P-50 (Temp Corrected) N Carboxyhemoglobin (1.5 - 5.0 %) 0.7 L O2 Concentration % 4L Temperature (97.0 - 100.0 FARH) 96.0 L O2 Delivery Method NC Miscellaneous Phlebotomy Draw Site LEFT RADIAL
--- NOTE | 2017-10-12 15:12 | PN- Palliative Care ---
Subjective Subjective: Patient has experienced a deterioration in her condition over the past 48h. She is now demonstraing signs of sepsis as manifested by elevated lactic acid, hypotension. House staff have remained in close contact with daughter (HCA) who maintains desires at this time to pursue aggressivel level of care including CPR or intubation. Patient's brother is at bedside and when asked if we can get anything for him, he responds "a cure for my sister". All questions at this time have been answered and they express understanding that patient's current condition has deteriorated and that the medical team is working diligently to identify the underlying cause of her condition (source of infection), to treat her current condition, and to maintain the patient's comfort throughout this process. They also understand the medical team's desire to be able to treat treatable conditions, and to avoid futile or near-futile care. Review of Systems: unable to obtain ROS secondary to patient's severe medical condition Objective Last 24 Hrs of Vital Signs/I&O Vital Signs Date Time Temp Pulse Resp B/P B/P Pulse O2 O2 Flow FiO2 Mean Ox Delivery Rate 10/12 1357 100 Nasal 4.0L Cannula 10/12 1200 99 Nasal 4.0L Cannula 10/12 0800 98 Nasal 4.0L Cannula 10/12 0800 97.7 109 21 118/64 99 Nasal 4.0L Cannula 10/12 0800 95 Nasal 4.0L Cannula 10/12 0400 100 Nasal 4.0L Cannula 10/12 0109 97 Nasal 4.0L Cannula 10/12 0000 94 Nasal 4.0L Cannula 10/12 0000 97.2 119 28 110/70 94 Nasal 4.0L Cannula 10/11 2055 94 Nasal 4.0L Cannula 10/11 1757 92 Nasal 4.0L Cannula 10/11 1631 Nasal 2.0L Cannula 10/11 1600 97.6 112 22 122/58 94 Nasal 2.0L Cannula 10/11 1600 94 Nasal 2.0L Cannula Intake & Output 10/12 1600 10/12 0800 10/12 0000 Intake Total 1615 Output Total 135 40 Balance 1480 -40 Intake, IV 1375 Intake, Oral 240 Number 2 Bowel Movements Output, Stool 10 Output, Urine 135 30 Physical Exam General Appearance: lethargic, mild distress, obese Head: atraumatic Ears, Nose, Throat: normal ENT inspection Neck: normal inspection Respiratory: no respiratory distress Cardiovascular: tachycardia Abdomen: soft, tenderness Neurologic/Psychiatric: arousable Diagnostic Data Lab/Micro/Pathology Results: Laboratory Tests 10/12/17 1130: Lactic Acid 3.7 H 10/12/17 0631: Lactic Acid Cancelled 10/12/17 0620: Lactic Acid 4.2 H 10/12/17 0515: Anion Gap 12, Estimated GFR > 60, Glucose 142 H, Calcium 7.5 L, Phosphorus 4.8 H, Magnesium 1.6, Total Bilirubin 1.5 H, AST 124 H, ALT 59 H, Albumin 1.7 L , CBC w Diff MAN DIFF ORDERED, RBC 4.12 L, MCV 75.9 L, MCH 23.9 L, MCHC 31.5 L, RDW 23.8 H, MPV 7.9, Gran % 88.7 H, Lymphocytes % 4.8 L, Monocytes % 6.5, Eosinophils % 0, Basophils % 0, Absolute Granulocytes 16.7 H, Segmented Neutrophils 75, Band Neutrophils 15 H, Absolute Lymphocytes 0.9 L, Lymphocytes 6 L, Monocytes 4, Absolute Monocytes 1.2 H, Absolute Eosinophils 0, Absolute Basophils 0, Platelet Estimate ADEQUATE, Polychromasia 1+, Hypochromic- Microcytic 2+, Poikilocytosis 1+, Ovalocytes 1+, Elliptocytes FEW, Fld Total RBCs Counted 100 10/12/17 0115: Lactic Acid 5.5 H 10/12/17 0110: pH 7.25 *L, pCO2 36, pO2 105 H, HCO3 16 L, ABG O2 Sat (Measured) 97.0, P-50 ( Temp Corrected) N, Carboxyhemoglobin 0.5 L, O2 Concentration % 4L, O2 Delivery Method N/C, Phlebotomy Draw Site LEFT RADIAL 10/11/172229: Lactic Acid Cancelled 10/11/172033: Anion Gap 15, Estimated GFR > 60, Glucose 171 H, Lactic Acid 5.9 H, Calcium 8.0 L, Phosphorus 4.5, Magnesium 1.8, Total Bilirubin 1.7 H, AST 129 H, ALT 73 H, Albumin 1.9 L, CBC w Diff MAN DIFF ORDERED, RBC 4.47, MCV 75.4 L, MCH 23.9 L, MCHC 31.7 L, RDW 23.6 H, MPV 7.6, Gran % 90.9 H, Lymphocytes % 3.8 L, Monocytes % 5.3, Eosinophils % 0, Basophils % 0, Absolute Granulocytes 17.4 H, Segmented Neutrophils 81 H, Band Neutrophils 12 H, Absolute Lymphocytes 0.7 L, Lymphocytes 1 L, Monocytes 2, Absolute Monocytes 1.0 H, Eosinophils 4, Absolute Eosinophils 0, Absolute Basophils 0, Platelet Estimate ADEQUATE, Hypochromic-Microcytic 1+, Poikilocytosis 1+, Anisocytosis 1+, Microcytic Cells 1+, Ovalocytes FEW 10/11/171809: pH 7.29 *L, pCO2 34 L, pO2 95, HCO3 16 L, ABG O2 Sat (Measured) 95.0 L, P-50 (Temp Corrected) N, Carboxyhemoglobin 0.7 L, O2 Concentration % 4L, Temperature 96.0 L, O2 Delivery Method NC, Phlebotomy Draw Site LEFT RADIAL Assessment/Plan Assessment 76 femaile with advanced rectal carcinoma, now with lactic acidosis - considerations given to underlying infection, other possibilities include intrabdominal process such as ischemia, perforation Patient's Condition: critical Prognosis: poor Is Patient Decisional? no Case Discussed With: house staff, nurse(s) Goals of Care: life-prolonging Treatment Preferences: 1. At this time, plan is to aggressively treat underlying, active condition. If patient requires intubation, this is expected per family as their goals are for improvement in overall condition even if aggressive measures are required 2. If intubation occurs, and/or requirement for pressor agents, then the continued decline in patient's condition should be explained to family, and that at this point, cardiac arrest is unlikely to be remediated through the use of CPR - therefore, it is reasonable to avoid CPR under this circumstance. 3. As there are multiple family members, multiple providers, information transfer back and forth may become confusion. Utilize a protocol to maintain clarity of information by clearly stating what the facts, opinions, and hopes are. You can preface statements such as "It is a fact that...[provide the facts] "; "It is my opinion that ... [provide your opinion - which you can further qualify as either a strong or weak opinion]; and lastly, "It is my hope that ... " This framework will help to maintain clarity and to avoid misunderstandings.
[2017-10-12 16:00] VITALS: BP 100/52
--- NOTE | 2017-10-12 18:22 | Cons- Palliative Care ---
Social Work Assessment/Plan Social Work Assessment/Plan: Palliative care Consult received. EHR reviewed, and case discussed with Dr. Pedroza, [facility] resident and RN. Patient has had a marked deterioration over the past 48 hours. Sepsis is suspected; source unknown. Patient with rectal cancer diagnosed +/-3 months ago. Surgery performed. Patient had been in [facility]. Patient and family in agreement with starting palliative radiation; patients physical conditon was so poor today that she opted not to go to treatment. While both surgery and oncology are suggesting comfort or hospice care, patient and family are not yet ready to surrender. Patient seen along with Dr. Pedroza and Dr. Rivera; patients brother was at bedside at wanting to know "when would she be better". Patients daughter is Healthcare Proxy; will contact her to make her aware of available social work services General Information and HPI Allergies/Medications Allergies: Coded Allergies: shellfish derived (Intermediate, G.I. DISTRESS FROM [place] 09/14/17) Home Med List: Atorvastatin Calcium 40 MG TABLET 1 TAB PO DAILY CHOLESTROL (Reported) Glimepiride 4 MG TABLET 1 TAB PO DAILY DM (Reported) Levothyroxine Sodium 25 MCG TABLET 1 TAB PO DAILY THYROID (Reported) Multivitamin (Daily Multiple Vitamin) 1 EACH TABLET 1 TAB PO DAILY VITAMIN SUPPORT (Reported) Oxycodone HCl/Acetaminophen (Percocet 5-325 MG Tablet) 5 MG-325 MG TABLET 1-2 TAB PO Q4-6 PRN PAIN Quinapril HCl 20 MG TABLET 1 TAB PO DAILY HTN (Reported) Sitagliptin Phos/Metformin HCl (Janumet 50-1,000 MG Tablet) 50 MG-1,000 MG TABLET 1 TAB PO BID DM (Reported) Past History Medical History Neurological: NONE EENT: NONE Cardiovascular: CAD (s/p stents), hypertension, hyperlipidemia, HEART MURMUR Respiratory: NONE Gastrointestinal: COLORECTAL CANCER Hepatic: mets to liver/lung Renal: nephrolithiasis Musculoskeletal: NONE Psychiatric: NONE Endocrine: diabetes, hypothyroidism, obesity Blood Disorders: NONE Cancer(s): colon/rectal cancer 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 [facility]mediate Facility Who Do You Live With? self Primary Language: Sammarinese Smoking Status: Former Smoker ETOH Use: denies use Karnofsky Performance Scale: 20 Living Will? unknown Power of Hole Puncher Strap/HCP? unknown Functional Ability ADLs Needs Assist: dressing, eating, toileting, bathing. IADLs Needs Assist: shopping, housework, finances, food prep, telephone, transportation, medication admin. Employment History Employment: Retired Retired? yes Assessment/Plan Consult Acknowledgment - Thank you for your consult request.
[2017-10-12 23:00] VITALS: BP 100/46
[2017-10-13 05:02] LABS: ABSOLUTE BASOPHIL COUNT 0 /CUMM (0.0-0.2); ABSOLUTE EOSINOPHIL COUNT 0 /CUMM (0.0-0.7); ABSOLUTE LYMPH COUNT 0.8 /CUMM (1.2-3.4); ABSOLUTE MONOCYTE COUNT 0.5 /CUMM (0.10-0.60); BASOPHIL % 0 % (0.0-2.0); EOSINOPHIL % 0 % (0-5); GRANULOCYTE % 85.5 % (42.2-75.2); HEMATOCRIT 28.2 % (37-47); MEAN CORPUSCULAR HGB 23.9 PG (27.0-31.0); MEAN CORPUSCULAR VOLUME 74.7 FL (81.0-99.0); MEAN PLATELET VOLUME 7.4 FL (7.4-10.4); PLATELET COUNT 193 /CUMM (130-400); RBC DISTRIBUTION WIDTH 22.9 % (11.5-14.5); RED BLOOD CELL CT 3.77 /CUMM (4.20-5.40); WHITE BLOOD CELL COUNT 9.4 /CUMM (4.8-10.8)
--- NOTE | 2017-10-13 07:11 | PN- Housestaff ---
Miguel Cade 10/13/17 0711: Subjective Follow-up For: Sepsis - uti? Metabolic acidosis lactic acidosis #1 hypoglycemia- resolved #2 back pain #3 hyponatremia-resolved #4 thrombocytopenia, ruled out heparin-induced thrombocytopenia- resolving #5 right upper extremity venous thrombus #6 metabolic encephalopathy #7 anemia-iron deficiency anemia and anemia of chronic disease #8 metastatic rectal cancer with metastases to liver and lung #9 leukocytosis Complaints: pt unable to provide hx Tele-Events Since Last Visit: uneventful Subjective: Patient was seen and examined this morning. She is somnelent ,lethargic,couldt talk much She continues to be uncomfortable. She has been having increasing secretions, which likely is making her uncomfortable. She is to get suction done, w/ [facility]. unable to offer any complaints given her situation Afebrile, heart rate 90, respiratory rate 24, blood pressure 90/60, saturating at 92 on 4 L oxygen supplementation. Review of Systems Constitutional: Reports: see HPI. Objective Last 24 Hrs of Vital Signs/I&O Vital Signs Date Time Temp Pulse Resp B/P B/P Pulse O2 O2 Flow FiO2 Mean Ox Delivery Rate 10/13 1600 98 Nasal 2.0L Cannula 10/13 1600 99.5 110 20 102/80 98 Nasal 2.0L Cannula 10/13 1423 95 Nasal 2.0L Cannula 10/13 1200 99 Nasal 2.0L Cannula 10/13 0800 100 Nasal 4.0L Cannula 10/13 0800 97.5 106 18 118/50 100 Nasal 4.0L Cannula 10/13 0400 99 Nasal 4.0L Cannula 10/13 0000 100 Nasal 4.0L Cannula 10/12 2300 96.1 97 21 100/46 100 Nasal 4.0L Cannula 10/12 2000 99 Nasal 4.0L Cannula Intake & Output 10/13 1600 10/13 0800 10/13 0000 Intake Total 675 555 581 Output Total 330 395 210 Balance 345 160 371 Intake, IV 675 555 581 Intake, Oral 0 Output, 275 100 Drainage Output, Other 100 Output, Stool 100 0 40 Output, Urine 130 120 70 Physical Exam General Appearance: Mild Distress Other Physical Findings: Neck: normal inspection, supple Respiratory: rhoncus, b/l crackles and wheezes Cardiovascular: regular rate/rhythm Peripheral Pulses: 2+ radial (R), 2+ radial (L) Gastrointestinal: normal bowel sounds, soft, colostomy bag in place , tender abdomen Rectal: heme positive stool Back: normal inspection Extremities: pedal edema Neurologic/Psych: lethargic Current Medications: Current Medications Sig/Rose Start time Last Medication Dose Route Stop Time Status Admin Albuterol Sulfate 3 ML Q6P PRN 10/11 0830 AC 10/12 INH 2050 Benzonatate 100 MG TID 10/09 2100 AC 10/11 PO 1547 Ceftazidime 1,000 MG Q12 10/12 0900 10/13 IV 0807 Guaifenesin 10 ML Q6P PRN 10/09 2015 AC 10/10 PO 0524 Levothyroxine Sodium 12.5 MCG DAILY AC 10/13 0830 AC 10/13 IV 1208 Levothyroxine Sodium 0.025 MG DAILY AC 10/11 0700 DC 10/11 PO 0802 Magnesium Sulfate 1 GM ONCE ONE 10/13 0615 WY 10/13 Dextrose/Water 100 ML IV 10/13 1014 0730 Morphine Sulfate 2 MG Q4P PRN 10/12 1115 AC 10/13 IV 1149 Omeprazole 40 MG DAILY AC 10/11 0700 W[place] 10/11 PO 0802 Ondansetron HCl 4 MG Q8P PRN 10/06 1845 AC 10/12 IV 1147 Oxycodone HCl 5 MG Q3P PRN 10/09 0400 AC 10/11 PO 1230 Pantoprazole Sodium 40 MG DAILY 10/13 0900 AC 10/13 IV 1210 Polyethylene Glycol 17 GM DAILY PRN 10/08 1145 AC 10/10 PO 0856 Rivaroxaban 15 MG BID 10/10 1200 AC 10/11 PO 0933 Senna/Docusate Sodium 2 TAB DAILY PRN 10/11 0900 PO Sodium Chloride 1,000 ML Q13H 10/12 0545 10/13 IV 1210 Vancomycin HCl 1,500 MG DAILY 10/12 1400 AC 10/13 Dextrose/Water 250 ML IV 1208 Vitamin A/Vitamin D 1 BROWN BID 10/11 1300 AC 10/13 TOP 1209 Zinc Oxide 1 BROWN BID 10/11 1300 10/13 TOP 1210 Last 24 Hrs of Lab/Tha Results Last 24 Hrs of Labs/Mics: Laboratory Tests 10/13/17 0730: Lactic Acid 2.0 10/13/17 0445: Lactic Acid 2.2 H 10/13/17 0445: Anion Gap 7, Estimated GFR > 60, Glucose 96, Calcium 7.5 L, Phosphorus 4.3, Magnesium 1.7, Total Bilirubin 1.4 H, AST 239 H, ALT 67 H, Albumin 1.6 L, CBC w Diff MAN DIFF ORDERED, RBC 3.77 L, MCV 74.7 L, MCH 23.9 L, MCHC 32.0 L , RDW 22.9 H, MPV 7.4, Gran % 85.5 H, Lymphocytes % 8.9 L, Monocytes % 5.6, Eosinophils % 0, Basophils % 0, Absolute Granulocytes 8.0 H, Segmented Neutrophils 78 H, Band Neutrophils 9 H, Absolute Lymphocytes 0.8 L, Lymphocytes 9 L, Monocytes 3, Absolute Monocytes 0.5, Eosinophils 1, Absolute Eosinophils 0, Absolute Basophils 0, Platelet Estimate ADEQUATE, Polychromasia 1 +, Hypochromic-Microcytic 2+, Anisocytosis 1+, Microcytic Cells 1+, Target Cells 1+, Stomatocytes 1+, Elliptocytes 1+ 10/13/17 0115: Lactic Acid 2.6 H 10/12/17 2210: Lactic Acid 2.6 H 10/12/17 1820: Lactic Acid 2.5 H Assessment/Plan Assessment: Ms Russo is a 76-year-old woman with PMHx of 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 Montoya), coronary artery disease status post stents, type 2 diabetes, hypothyroidism hyperlipidemia, hypertension who was brought to the hospital after she was found to have severe back pain and altered mental status and found to have had hypoglycemia upto 22 mg/dl at the time of presentation which could have resulted in altered mentation. She was transferred to ICU for management of hypoglycemia and altered mental status At the time of admission vitals 98.3, pulse rate 84, respiration 22, blood pressure 109/53, 100% on room air. LABS WBC 17.5 (10/06)-->15.6(10/07) Hemoglobin 10.5--8.8 MCV 75.7 Platelet 424 (09/25)-->178 (09/27)--> 115 (09/28)-->80 09/29)-->88 (10/06)-->58 (10/07) Sodium 132-->132 ( chronic ) Potassium 3.9(10/06)-->3.3 BUN 22, creatinine 0.7 Glucose 22 (10/06) Insulin level 46.5(10/06) Lactic acid 1.7 Calcium 7.5 (10/06) corrected calcium 9.52. INR 1.55, PTT 41, fibrinogen activity 367. Chest x-ray: Stable pattern nodules throughout the right and left lung compatible with a history of pulmonary metastatic disease. No superimposed acute process. Low lung volumes. Head CT: Scattered chronic small vessel ischemic changes within the periventricular white matter. Otherwise unremarkable examination. No evidence of acute territorial infarct or hemorrhage. CT chest, abdomen pelvis without IV contrast- 1. Redemonstration of the rectal mass. Prominent adjacent perirectal lymph nodes are again noted as well. 2. No significant change in the appearance of bilateral pulmonary nodules consistent with metastatic disease. 3. Increased prominence of diffuse hepatic masses consistent with metastatic disease. Increase in small volume ascites. 4. No new consolidation in the lungs. No evidence of pulmonary edema. 5. There is no free air in the abdomen to suggest perforation. Venous Doppler upper extremity:Occlusive venous thrombus involving the right basilic and right cephalic veins. Lumbar spine MRI With and without sowmya : - This is a limited motion degraded study. There is no evidence of spinal metastatic disease. No enhancing epidural masses. No acute fractures. - Mild to moderate spondylosis at the L3-L4, L4-L5, and L5-S1 levels. There is no severe central canal stenosis and there is no severe foraminal stenosis within the lumbar spine. Assessment and plan Etiology for her acute change in mental status is likely due to hypoglycemia, likely secondary to sulfonylurea use or metastasis to liver. Since she does not have any significant renal dysfunction, and has been on sulfonylureas for a while, it seems unlikely that it could be due to sulfonylureas. Other oral hypoglycemics that she is currently on are not known to be a reason for hypoglycemia. The treatment for sulfonyl induced hypoglycemia ideally results within first 24-48 hours. Other etiologies such as neuroendocrine cells from GI tract metastasizing to liver, or decreased gluconeogenesis ability of liver are likely. Elevated insulin level, makes me think that intact beta cells are responsible for the secretion, and limited gluconeogenic reserve is possible given his liver mets. Given the history of cancer, would likely have higher glucose demand secondary to Warburg effect. Problem list: Sepsis of unknown origin, metabolic acidosis, lactic acidosis #1 hypoglycemia #2 back pain #3 hyponatremia-chronic #4 thrombocytopenia, rule out heparin-induced thrombocytopenia #5 right upper extremity venous thrombus #6 metabolic encephalopathy #7 anemia-iron deficiency anemia and anemia of chronic disease #8 metastatic rectal cancer with metastases to liver and lung #9 leukocytosis Plan: Respiratory Infectious: sepsis -UTI/lactic acidosis/metabolic acidosis Patient had worsening leukocytosis with granulocytosis, left shift, tachycardia, lactic acidosis with Gram stain of lower respiratory cultures revealed MRSA staph aureus. Blood cultures results were pending. Patient was started on ceftaz and vancomycin to broaden the coverage for healthcare associated microbes. Although lung infection seems likely, last cxr did not reveal any consolidation. She also had a recent abdominal surgery, which would make the intra-abdominal infection possible, which needs to be ruled out. she has been having serous discharge around the surgical site, which seemed to be from the intrabdominal wall, and the last ct scan abdomen revealed anasarca. CT chest abdomen pelvis didn't reveal any infection. Pulmonary embolism was ruled out. * Continue IV ceftaz 1 g every 12, IV vancomycin 1.5 g daily pending blood cultures * Respiratory culture positive for MRSA * Urine culture positive for gram-negative rods KLEBSIELLA * Follow up final cultures and sensitivities * Monitor leukocytosis/fever * Continue IV fluids given lactic acidosis and sepsis * Trended lactic acid * ABG for her respiratory status worsens * Last ABG showed pH 7.25, 16, 36 * Low threshold for intubation * [facility]C nebs * Needs hourly suction * Provide supplemental oxygen to maintain saturation above 90 Circulatory/CVS: Borderline hypotension * Continue to monitor vitals every hourly. * Hold antihypertensives at this time. * Takes quinapril at home for hypertension, will hold the medication given her borderline blood pressure 90/50 * Will provide adequate hydration Hematology: Anemia * Guaiac positive stools, given history of rectal cancer and recent surgery. Thrombocytopenia Change in platelet count-thrombocytopenia that was noted at the time of admission, with normal platelet count prior to her hospital admission which was around 7-10 days ago, with more than 50% drop in platelets, and thrombosis makes us think that she might have developed heparin-induced thrombocytopenia, which should be investigated. * For thrombocytopenia, started argatroban after discussing risks versus benefits with the patient's family. * Argatroban drip was stopped 10/10/2017 * Started Xarelto 15 mg twice daily for right upper extremity DVT, HOWEVER REFUSED ORAL MEDS, STARTED SC LOVENOX 10/13 * Consider long-term anticoagulation, if the patient's family wishes. * Follow-up heparin-induced thrombocytopenia panel- neg. * No heparin products at this time. Metabolic: Hypoglycemia she was admitted to ICU for severe hypoglycemia with glucose leve in the 20s. When she was in rehab, she was on Janumet, Jardiance, glimepiride and Humalog. As per her daughter, her po intake has been poor. she was on 10% dextrose drip. Her random cortisol was 24.3. But her insulin level was 46.5. patient received Octrotide at around 2 am. Since then, her glucose level has been more stable. * The underlying caueses of severe hypoglycemia-- poor intake, sulfonyureas, extensive metastatic lesions and liver dysfunction * D10 dextrose drip was discontinued given her serum glucose 135 * No further requirements for octreotide or glucagon * Blood glucose maintaining at stable levels * Will monitor FSG every 2-4 hours chronic hyponatremia she has moderate hyponatremia that is chronic and associated with no symptoms/ no intracranial pathology * 127- 132 * Continue to monitor sodium level * Will treat aggressively if sodium drops below 120 with the symptoms headache, fatigue, nausea, vomiting, gait disturbances, confusion. -------- Alimentary: If she is not able to take anything p.o., would consider IV medications in her. Refusing oral medications Poor oral intake ----- Neurology: * Monitor for an acute altered mental changes. * Seizure precautions. * Use morphine 2 mg every 4 hourly, discussed with the family about side effects. stage IV rectal cancer with liver and lung metastasis status post colectomy and colostomy She was seen in consultation by radiation oncologist on 09/29/17 for her known stage IV rectal carcinoma with widespread metastatic disease. She is status post diverting colostomy on 09/26/17 and was subsequently discharged to an extended care facility. She continues with pain presumably from the rectal mass. She has expressed her desire to move forward with palliative radiation therapy. * A total of 10 fractions (3000 cGy) is being prescribed. * She received 2 treatments so far 10/10 and 10/11. Postponed further palliative radiotherapy given her sickness * History of rectal cancer, would need a discussion about goals of care * Continue to monitor abnormal liver chemistries. * No systemic chemotherapy at this time until she begins functionality. * palliative specialist on board * Radiation oncologist on board Continue home medications Hypothyroidism IV levothyroxine 12.5 g Hyperlipidemia -stopped Lipitor given transaminitis History of diabetes mellitus Accu-Cheks. Held home meds given hypoglycemia Hypertension held home medication given hypotension at time of admission Stage IV rectal cancer with metastasis to lung and liver status post diverticular colostomy 09/27/2017 Coronary artery disease status post stents DVT prophylaxis: xaralto, Alps for now. Housekeeping ICU #1 Central line- none #2 Arterial line- none #3 Blake catheter- yes- 10/11 #4 Rectal tube - none #5 NG tube - none #6 IV/peripheral line- yes. 10/07/17 #7 IV drips- NS #8 Vent settings: none #9 pressors: none Family still insistent about keeping her full code Problem List: 1. DVT (deep venous thrombosis) 2. Thrombocytopenia 3. Metastatic disease Pain Ratin Pain Location: ABDOMEN Pain Goal: Remain pain free Pain Plan: MORPHINE Tomorrow's Labs & Rationales: CBC ICU LABS Dennis Hunter MD 10/13/17 9927: Attending MD Review Statement Attending Statement Attending Statement: examined this patient, discuss w/resident/PA/LABORATORY CLERK, agreed w/resident/PA/LABORATORY CLERK, reviewed EMR data (avail), discussed with case mgmt, reviewed images, amended to note Attending Assessment/Plan: The patient was seen and discussed with house staff, nursing and palliative care (Dr. Pedroza). The patient is improved as far as respiratory distress (no rhonchi at present). She has refused NG for meds, etc. Spoke with palliative care and with input from oncology favor DNR/DNI status. Dr. Pedroza stated we may speak with her daughter (she comes in 7 pm). He will have further discussions as well. The nursing staff had already read Oncology statement to the patient's daughter regarding avoiding situation where she may need to be intubated. Will continue antibiotics.
--- NOTE | 2017-10-13 07:35 | PN- Oncology ---
Subjective Subjective: She continues to be somnolent. She denies any pain. She does not some difficulty with breathing. She is tired. She denies any nausea or vomiting. Review of Systems: Limited due to mental status. Review of Systems Constitutional: Denies: chills, fever. Cardiovascular: Denies: chest pain. Respiratory: Reports: short of breath. Denies: cough. Gastrointestinal: Reports: abdominal pain (mild). Neurological/Psychological: Reports: confusion. All Other Systems: Reviewed and Negative Objective Vital Signs and I&Os Vital Signs Date Time Temp Pulse Resp B/P B/P Pulse O2 O2 Flow FiO2 Mean Ox Delivery Rate 10/13 0400 99 Nasal 4.0L Cannula 10/13 0000 100 Nasal 4.0L Cannula 10/12 2300 96.1 97 21 100/46 100 Nasal 4.0L Cannula 10/12 2000 99 Nasal 4.0L Cannula 10/12 1635 100 Nasal 4.0L Cannula 10/12 1600 99 Nasal 4.0L Cannula 10/12 1600 97.0 101 24 100/52 99 Nasal 4.0L Cannula 10/12 1357 100 Nasal 4.0L Cannula 10/12 1200 99 Nasal 4.0L Cannula 10/12 0800 98 Nasal 4.0L Cannula 10/12 0800 97.7 109 21 118/64 99 Nasal 4.0L Cannula 10/12 0800 95 Nasal 4.0L Cannula Intake & Output 10/13 0800 10/13 0000 18 1600 10/12 0800 10/12 0000 10/11 1600 Intake Total 555 702 799 5321 250 Output Total 395 210 50 135 40 100 Balance 160 116 753 0003 -40 150 Intake, IV 555 897 046 1393 10 Intake, Oral 0 240 240 Number 0 2 2 Bowel Movements Output, 275 100 Drainage Output, Stool 0 40 10 100 Output, Urine 120 70 50 135 30 Physical Exam: General Appearance: alert, awake, mild distress, obese, somnolent Head: atraumatic Eyes: Bilateral: PERRL. Ears, Nose, Throat: normal pharynx, dry blood in nares Respiratory: rhonchi, quiet respiration, tachypnea Cardiovascular: tachycardia, no murmurs Gastrointestinal: normal bowel sounds, tenderness, LLQ colostomy in place, stoma pink Extremities: upper and lower extremity edema 3+ throughout Neurologic/Psych: awake, alert, oriented, slow to answer questions. Current Medications: Current Medications Sig/Rose Start time Last Medication Dose Route Stop Time Status Admin Albuterol Sulfate 3 ML Q6P PRN 10/11 0830 10/12 INH 2050 Benzonatate 100 MG TID 10/09 2100 10/11 PO 1547 Ceftazidime 1,000 MG Q12 10/12 0900 10/12 IV 2129 Ceftazidime 2,000 MG Q8H 10/12 0800 KS 10/12 IV 0614 Guaifenesin 10 ML Q6P PRN 10/09 2015 10/10 PO 0524 Levothyroxine Sodium 0.025 MG DAILY AC 10/11 0700 10/11 PO 0802 Magnesium Sulfate 1 GM ONCE ONE 10/13 0615 Dextrose/Water 100 ML IV 10/13 1014 Morphine Sulfate 2 MG Q4P PRN 10/12 1115 10/13 IV 0522 Omeprazole 40 MG DAILY AC 10/11 0700 10/11 PO 0802 Ondansetron HCl 4 MG Q8P PRN 10/06 1845 10/12 IV 1147 Oxycodone HCl 5 MG Q3P PRN 10/09 0400 10/11 PO 1230 Polyethylene Glycol 17 GM DAILY PRN 10/08 1145 10/10 PO 0856 Rivaroxaban 15 MG BID 10/10 1200 10/11 PO 0933 Scopolamine HBr 1 PAT ONE ONE 10/12 1430 DC 10/12 TOP 10/12 1431 1629 Senna/Docusate Sodium 2 TAB DAILY PRN 10/11 0900 PO Sodium Chloride 1,000 ML Q13H 10/12 0545 10/13 IV 0121 Vancomycin HCl 1,000 MG DAILY 10/12 1400 DC Dextrose/Water 250 ML IV Vancomycin HCl 1,500 MG DAILY 10/12 1400 AC 10/12 Dextrose/Water 250 ML IV 1415 Vitamin A/Vitamin D 1 BROWN BID 10/11 1300 10/12 TOP 2129 Zinc Oxide 1 BROWN BID 10/11 1300 10/12 TOP 2130 Results Last 24 Hours of Lab Results: Laboratory Tests 10/13 10/13 10/13 0445 0445 0115 Chemistry Sodium (137 - 145 mmol/L) 139 Potassium (3.5 - 5.1 mmol/L) 4.4 Chloride (98 - 107 mmol/L) 109 H Carbon Dioxide (22 - 30 mmol/L) 23 Anion Gap (5 - 16) 7 BUN (7 - 17 mg/dL) 26 H Creatinine (0.5 - 1.0 mg/dL) 0.7 Estimated GFR (>60 ml/min) > 60 Glucose (65 - 99 mg/dL) 96 Lactic Acid (0.7 - 2.1 mmol/L) 2.2 H 2.6 H Calcium (8.4 - 10.2 mg/dL) 7.5 L Phosphorus (2.5 - 4.5 mg/dL) 4.3 Magnesium (1.6 - 2.3 mg/dL) 1.7 Total Bilirubin (0.2 - 1.3 mg/dL) 1.4 H AST (14 - 36 U/L) 239 H ALT (9 - 52 U/L) 67 H Albumin (3.5 - 5.0 g/dL) 1.6 L Hematology CBC w Diff MAN DIFF ORDERED WBC (4.8 - 10.8 /CUMM) 9.4 RBC (4.20 - 5.40 /CUMM) 3.77 L Hgb (12.0 - 16.0 G/DL) 9.0 L Hct (37 - 47 %) 28.2 L MCV (81.0 - 99.0 FL) 74.7 L MCH (27.0 - 31.0 PG) 23.9 L MCHC (33.0 - 37.0 G/DL) 32.0 L RDW (11.5 - 14.5 %) 22.9 H Plt Count (130 - 400 /CUMM) 193 MPV (7.4 - 10.4 FL) 7.4 Gran % (42.2 - 75.2 %) 85.5 H Lymphocytes % (20.5 - 51.1 %) 8.9 L Monocytes % (1.7 - 9.3 %) 5.6 Eosinophils % (0 - 5 %) 0 Basophils % (0.0 - 2.0 %) 0 Absolute Granulocytes (1.4 - 6.5 /CUMM) 8.0 H Segmented Neutrophils (42.2 - 75.2 %) 78 H Band Neutrophils (0.0 - 5.0 %) 9 H Absolute Lymphocytes (1.2 - 3.4 /CUMM) 0.8 L Lymphocytes (20.5 - 51.1 %) 9 L Monocytes (1.7 - 9.3 %) 3 Absolute Monocytes (0.10 - 0.60 /CUMM) 0.5 Eosinophils (0 - 5.0 %) 1 Absolute Eosinophils (0.0 - 0.7 /CUMM) 0 Absolute Basophils (0.0 - 0.2 /CUMM) 0 Platelet Estimate (ADEQUATE) ADEQUATE Polychromasia 1+ Hypochromic-Microcytic 2+ Anisocytosis 1+ Microcytic Cells 1+ Target Cells 1+ Stomatocytes 1+ Elliptocytes 1+ 10/12 10/12 10/12 10/12 2210 1820 1430 1130 Chemistry Lactic Acid (0.7 - 2.1 mmol/L) 2.6 H 2.5 H 3.1 H 3.7 H Assessment/Plan Assessment/Recommendations: Ms. 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 She was seen in radiation oncology office and was noted to be in severe pain. She was sent to [facility] for evaluation. On admission, she was noted to be somnolent and hypoglycemic. She was started on the 10% dextrose drip in addition to octreotide. Endocrinology was consulted. This has improved. In addition, she was noted to have new thrombocytopenia with ana maria platelet count of 58,000. 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 She does have RUE DVT. HIT panel negative. Platelet count normalized on argatroban and is now on rivaroxaban. Currently, she seems to have sepsis of urinary origin. Urine culture is growing out GNR. There is S. Aureus in sputum culture also. She is now on vancomycin and ceftazidime. Lactic acid is improved but clinically unchanged right now. Her overall prognosis is poor. If she does not improve with sepsis treatment, I would recommend hospice for the patient. She is not a candidate for chemotherapy at this junction. Radiation is mainly for palliation and is unstable for this at the moment. I have spoken to the patient but clinical condition limits the discussion. I would recommend against intubation and resuscitation given her overall prognosis with regard to her widely metastatic malignancy. Sepsis: -continue current antibiotics RUE DVT: -continue rivaroxaban Metastatic rectal cancer: -f/u outpatient -worsening PS, candidate for hospice if not improving with antibiotics Please call [phone] with any questions or concerns. Problem List: 1. Metastatic disease 2. DVT (deep venous thrombosis) 3. Intractable pain 4. Colostomy in place 5. Rectal carcinoma
[2017-10-13 08:00] VITALS: BP 118/50
[2017-10-13 16:00] VITALS: BP 102/80
[2017-10-14] VITALS: BP 108/60
[2017-10-14 02:33] LABS: ABSOLUTE BASOPHIL COUNT 0 /CUMM (0.0-0.2); ABSOLUTE EOSINOPHIL COUNT 0 /CUMM (0.0-0.7); ABSOLUTE GRANULOCYTE CT 9.3 /CUMM (1.4-6.5); ABSOLUTE LYMPH COUNT 0.8 /CUMM (1.2-3.4); ABSOLUTE MONOCYTE COUNT 0.4 /CUMM (0.10-0.60); BASOPHIL % 0.1 % (0.0-2.0); EOSINOPHIL % 0.2 % (0-5); GRANULOCYTE % 88.7 % (42.2-75.2); HEMATOCRIT 27.8 % (37-47); MEAN CORPUSCULAR HGB 24.2 PG (27.0-31.0); MEAN CORPUSCULAR HGB CONC 32.3 G/DL (33.0-37.0); MEAN CORPUSCULAR VOLUME 74.8 FL (81.0-99.0); MEAN PLATELET VOLUME 7.6 FL (7.4-10.4); PLATELET COUNT 179 /CUMM (130-400); RBC DISTRIBUTION WIDTH 24.1 % (11.5-14.5); RED BLOOD CELL CT 3.71 /CUMM (4.20-5.40); WHITE BLOOD CELL COUNT 10.5 /CUMM (4.8-10.8)
--- NOTE | 2017-10-14 07:45 | PN- Housestaff ---
See Addendum Subjective Follow-up For: Sepsis - uti? Metabolic acidosis lactic acidosis #1 hypoglycemia- resolved #2 back pain #3 hyponatremia-resolved #4 thrombocytopenia, ruled out heparin-induced thrombocytopenia- resolving #5 right upper extremity venous thrombus #6 metabolic encephalopathy #7 anemia-iron deficiency anemia and anemia of chronic disease #8 metastatic rectal cancer with metastases to liver and lung #9 leukocytosis Complaints: pt unable to provide hx Tele-Events Since Last Visit: uneventful Subjective: Patient was seen and examined this morning. She is somnelent ,lethargic,couldt talk much She continues to be uncomfortable. She has been having increasing secretions, which likely is making her uncomfortable. unable to offer any complaints given her situation Afebrile, heart rate 90, respiratory rate 24, blood pressure 100/60, saturating at 92 on 4 L oxygen supplementation. Review of Systems Constitutional: Reports: see HPI. Objective Last 24 Hrs of Vital Signs/I&O Vital Signs Date Time Temp Pulse Resp B/P B/P Pulse O2 O2 Flow FiO2 Mean Ox Delivery Rate 10/14 1205 98 Nasal 2.0L Cannula 10/14 0904 99 Nasal 2.0L Cannula 10/14 0800 100 Nasal 2.0L Cannula 10/14 0800 97.5 98 22 120/66 100 Nasal 2.0L Cannula 10/14 0400 95 Nasal 2.0L Cannula 10/14 0000 99 Nasal 2.0L Cannula 10/14 0000 98.1 100 20 108/60 99 Nasal 2.0L Cannula 10/13 2122 96 Nasal 2.0L Cannula 10/14 1999 97 Nasal 2.0L Cannula Intake & Output 10/14 1600 10/14 0800 10/14 0000 Intake Total 540 600 Output Total 850 400 Balance -310 200 Intake, IV 540 600 Number 0 0 Bowel Movements Output, 650 150 Drainage Output, Stool 0 Output, Urine 200 250 Vital Signs Date Time Temp Pulse Resp B/P B/P Pulse O2 O2 Flow FiO2 Mean Ox Delivery Rate 10/14 1205 98 Nasal 2.0L Cannula 10/14 0904 99 Nasal 2.0L Cannula 10/14 0800 100 Nasal 2.0L Cannula 10/14 0800 97.5 98 22 120/66 100 Nasal 2.0L Cannula 10/14 0400 95 Nasal 2.0L Cannula 10/14 0000 99 Nasal 2.0L Cannula 10/14 0000 98.1 100 20 108/60 99 Nasal 2.0L Cannula 10/13 2121 96 Nasal 2.0L Cannula 10/13 Nasal 2.0L Cannula Intake & Output 10/14 1600 10/14 0800 10/14 0000 Intake Total 540 600 Output Total 850 400 Balance -310 200 Intake, IV 540 600 Number 0 0 Bowel Movements Output, 650 150 Drainage Output, Stool 0 Output, Urine 200 250 Physical Exam General Appearance: Mild Distress Other Physical Findings: Neck: normal inspection, supple Respiratory: rhoncus, b/l crackles and wheezes Cardiovascular: regular rate/rhythm Peripheral Pulses: 2+ radial (R), 2+ radial (L) Gastrointestinal: normal bowel sounds, soft, colostomy bag in place , tender abdomen Rectal: heme positive stool Back: normal inspection Extremities: pedal edema Neurologic/Psych: lethargic Current Medications: Current Medications Sig/Rose Start time Last Medication Dose Route Stop Time Status Admin Albuterol Sulfate 3 ML Q6P PRN 10/11 0830 AC 10/12 INH 2050 Benzonatate 100 MG TID 10/09 2100 AC 10/11 PO 1547 Ceftazidime 1,000 MG Q12 10/12 0900 AC 10/14 IV 0754 Dextrose/Sodium 1,000 ML Q13H 10/14 0515 AC 10/14 Chloride IV 0516 Enoxaparin Sodium 100 MG BID 10/13 2100 AC 10/14 SC 0754 Guaifenesin 10 ML Q6P PRN 10/09 2015 AC 10/10 PO 0524 Levothyroxine Sodium 12.5 MCG DAILY 10/14 0900 AC 10/14 IV 0938 Levothyroxine Sodium 12.5 MCG DAILY AC 10/13 0830 MA 10/13 IV 1208 Morphine Sulfate 2 MG Q4P PRN 10/12 1115 AC 10/14 IV 1557 Ondansetron HCl 4 MG Q8P PRN 10/06 1845 AC 10/12 IV 1147 Oxycodone HCl 5 MG Q3P PRN 10/09 0400 AC 10/11 PO 1230 Pantoprazole Sodium 40 MG DAILY 10/13 0900 AC 10/14 IV 0754 Polyethylene Glycol 17 GM DAILY PRN 10/08 1145 AC 10/10 PO 0856 Rivaroxaban 15 MG BID 10/10 1200 DC 10/11 PO 0933 Senna/Docusate Sodium 2 TAB DAILY PRN 10/11 0900 AC PO Sodium Chloride 1,000 ML Q13H 10/12 0545 DC 10/13 IV 2041 Vancomycin HCl 1,500 MG DAILY 10/12 1400 AC 10/14 Dextrose/Water 250 ML IV 0938 Vitamin A/Vitamin D 1 BROWN BID 10/11 1300 AC 10/14 TOP 0753 Zinc Oxide 1 BROWN BID 10/11 1300 AC 10/14 TOP 0753 Last 24 Hrs of Lab/Tha Results Last 24 Hrs of Labs/Mics: Laboratory Tests 10/14/17 0200: Anion Gap 6, Estimated GFR > 60, Glucose 68, Calcium 7.3 L, Phosphorus 3.7, Magnesium 1.8, Total Bilirubin 1.6 H, AST 158 H, ALT 61 H, Albumin 1.7 L, CBC w Diff MAN DIFF ORDERED, RBC 3.71 L, MCV 74.8 L, MCH 24.2 L, MCHC 32.3 L , RDW 24.1 H, MPV 7.6, Gran % 88.7 H, Lymphocytes % 7.4 L, Monocytes % 3.6, Eosinophils % 0.2, Basophils % 0.1, Absolute Granulocytes 9.3 H, Segmented Neutrophils 83 H, Absolute Lymphocytes 0.8 L, Lymphocytes 11 L, Monocytes 5, Absolute Monocytes 0.4, Eosinophils 1, Absolute Eosinophils 0, Absolute Basophils 0, Platelet Estimate ADEQUATE, Polychromasia 1+, Hypochromic- Microcytic 1+, Poikilocytosis 1+, Anisocytosis 1+, Microcytic Cells 1+, Target Cells FEW, Ovalocytes 1+, Elliptocytes FEW, Fld Total RBCs Counted 100 Assessment/Plan Assessment: Ms Russo is a 76-year-old woman with PMHx of 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 Montoya), coronary artery disease status post stents, type 2 diabetes, hypothyroidism hyperlipidemia, hypertension who was brought to the hospital after she was found to have severe back pain and altered mental status and found to have had hypoglycemia upto 22 mg/dl at the time of presentation which could have resulted in altered mentation. She was transferred to ICU for management of hypoglycemia and altered mental status At the time of admission vitals 98.3, pulse rate 84, respiration 22, blood pressure 109/53, 100% on room air. LABS WBC 17.5 (10/06)-->15.6(10/07) Hemoglobin 10.5--8.8 MCV 75.7 Platelet 424 (09/25)-->178 (09/27)--> 115 (09/28)-->80 09/29)-->88 (10/06)-->58 (10/07) Sodium 132-->132 ( chronic ) Potassium 3.9(10/06)-->3.3 BUN 22, creatinine 0.7 Glucose 22 (10/06) Insulin level 46.5(10/06) Lactic acid 1.7 Calcium 7.5 (10/06) corrected calcium 9.52. INR 1.55, PTT 41, fibrinogen activity 367. Chest x-ray: Stable pattern nodules throughout the right and left lung compatible with a history of pulmonary metastatic disease. No superimposed acute process. Low lung volumes. Head CT: Scattered chronic small vessel ischemic changes within the periventricular white matter. Otherwise unremarkable examination. No evidence of acute territorial infarct or hemorrhage. CT chest, abdomen pelvis without IV contrast- 1. Redemonstration of the rectal mass. Prominent adjacent perirectal lymph nodes are again noted as well. 2. No significant change in the appearance of bilateral pulmonary nodules consistent with metastatic disease. 3. Increased prominence of diffuse hepatic masses consistent with metastatic disease. Increase in small volume ascites. 4. No new consolidation in the lungs. No evidence of pulmonary edema. 5. There is no free air in the abdomen to suggest perforation. Venous Doppler upper extremity:Occlusive venous thrombus involving the right basilic and right cephalic veins. Lumbar spine MRI With and without sowmya : - This is a limited motion degraded study. There is no evidence of spinal metastatic disease. No enhancing epidural masses. No acute fractures. - Mild to moderate spondylosis at the L3-L4, L4-L5, and L5-S1 levels. There is no severe central canal stenosis and there is no severe foraminal stenosis within the lumbar spine. Assessment and plan Etiology for her acute change in mental status is likely due to hypoglycemia, likely secondary to sulfonylurea use or metastasis to liver. Since she does not have any significant renal dysfunction, and has been on sulfonylureas for a while, it seems unlikely that it could be due to sulfonylureas. Other oral hypoglycemics that she is currently on are not known to be a reason for hypoglycemia. The treatment for sulfonyl induced hypoglycemia ideally results within first 24-48 hours. Other etiologies such as neuroendocrine cells from GI tract metastasizing to liver, or decreased gluconeogenesis ability of liver are likely. Elevated insulin level, makes me think that intact beta cells are responsible for the secretion, and limited gluconeogenic reserve is possible given his liver mets. Given the history of cancer, would likely have higher glucose demand secondary to Warburg effect. Problem list: Sepsis of unknown origin, metabolic acidosis, lactic acidosis #1 hypoglycemia #2 back pain #3 hyponatremia-chronic #4 thrombocytopenia, rule out heparin-induced thrombocytopenia #5 right upper extremity venous thrombus #6 metabolic encephalopathy #7 anemia-iron deficiency anemia and anemia of chronic disease #8 metastatic rectal cancer with metastases to liver and lung #9 leukocytosis Plan: Respiratory Infectious: sepsis -UTI/lactic acidosis/metabolic acidosis Patient had worsening leukocytosis with granulocytosis, left shift, tachycardia, lactic acidosis with Gram stain of lower respiratory cultures revealed MRSA staph aureus. Blood cultures results were pending. Patient was started on ceftaz and vancomycin to broaden the coverage for healthcare associated microbes. Although lung infection seems likely, last cxr did not reveal any consolidation. She also had a recent abdominal surgery, which would make the intra-abdominal infection possible, which needs to be ruled out. she has been having serous discharge around the surgical site, which seemed to be from the intrabdominal wall, and the last ct scan abdomen revealed anasarca. CT chest abdomen pelvis didn't reveal any infection. Pulmonary embolism was ruled out. * Continue IV ceftaz 1 g every 12, IV vancomycin 1.5 g daily * Respiratory culture positive for MRSA * Urine culture positive for gram-negative rods KLEBSIELLA * Monitor leukocytosis/fever * Continue IV fluids given lactic acidosis and sepsis * Trended lactic acid * ABG for her respiratory status worsens * Last ABG showed pH 7.25, 16, 36 * Low threshold for intubation * TRC nebs * Needs hourly suction * Provide supplemental oxygen to maintain saturation above 90 Circulatory/CVS: Borderline hypotension * Continue to monitor vitals every hourly. * Hold antihypertensives at this time. * Takes quinapril at home for hypertension, will hold the medication given her borderline blood pressure 90/50 * Will provide adequate hydration Hematology: Anemia * Guaiac positive stools, given history of rectal cancer and recent surgery. Thrombocytopenia Change in platelet count-thrombocytopenia that was noted at the time of admission, with normal platelet count prior to her hospital admission which was around 7-10 days ago, with more than 50% drop in platelets, and thrombosis makes us think that she might have developed heparin-induced thrombocytopenia, which should be investigated. * For thrombocytopenia, started argatroban after discussing risks versus benefits with the patient's family. * Argatroban drip was stopped 10/10/2017 * Started Xarelto 15 mg twice daily for right upper extremity DVT, HOWEVER REFUSED ORAL MEDS, STARTED SC LOVENOX 100 BID 10/13 * Consider long-term anticoagulation, if the patient's family wishes. * Follow-up heparin-induced thrombocytopenia panel- neg. * No heparin products at this time. Metabolic: Hypoglycemia she was admitted to ICU for severe hypoglycemia with glucose leve in the 20s. When she was in rehab, she was on Janumet, Jardiance, glimepiride and Humalog. As per her daughter, her po intake has been poor. she was on 10% dextrose drip. Her random cortisol was 24.3. But her insulin level was 46.5. patient received Octrotide at around 2 am. Since then, her glucose level has been more stable. * The underlying caueses of severe hypoglycemia-- poor intake, sulfonyureas, extensive metastatic lesions and liver dysfunction * D10 dextrose drip was discontinued given her serum glucose 135 * No further requirements for octreotide or glucagon * Blood glucose maintaining at stable levels * Will monitor FSG every 2-4 hours chronic hyponatremia she has moderate hyponatremia that is chronic and associated with no symptoms/ no intracranial pathology * 127- 132 * Continue to monitor sodium level * Will treat aggressively if sodium drops below 120 with the symptoms headache, fatigue, nausea, vomiting, gait disturbances, confusion. -------- Alimentary: If she is not able to take anything p.o., would consider IV medications in her. Refusing oral medications Poor oral intake ----- Neurology: * Monitor for an acute altered mental changes. * Seizure precautions. * Use morphine 2 mg every 4 hourly, discussed with the family about side effects. stage IV rectal cancer with liver and lung metastasis status post colectomy and colostomy She was seen in consultation by radiation oncologist on 09/29/17 for her known stage IV rectal carcinoma with widespread metastatic disease. She is status post diverting colostomy on 09/26/17 and was subsequently discharged to an extended care facility. She continues with pain presumably from the rectal mass. She has expressed her desire to move forward with palliative radiation therapy. * A total of 10 fractions (3000 cGy) is being prescribed. * She received 2 treatments so far 10/10 and 10/11. Postponed further palliative radiotherapy given her sickness * History of rectal cancer, would need a discussion about goals of care * Continue to monitor abnormal liver chemistries. * No systemic chemotherapy at this time until she begins functionality. * palliative specialist on board * Radiation oncologist on board Continue home medications Hypothyroidism IV levothyroxine 12.5 g Hyperlipidemia -stopped Lipitor given transaminitis History of diabetes mellitus Accu-Cheks. Held home meds given hypoglycemia Hypertension held home medication given hypotension at time of admission Stage IV rectal cancer with metastasis to lung and liver status post diverticular colostomy 09/27/2017 Coronary artery disease status post stents DVT prophylaxis: xaralLeander delgado for now. Housekeeping ICU #1 Central line- none #2 Arterial line- none #3 Blake catheter- yes- 10/11 #4 Rectal tube - none #5 NG tube - none #6 IV/peripheral line- yes. 10/07/17 #7 IV drips- d51/2 ns #8 Vent settings: none #9 pressors: none Family still insistent about keeping her full code Problem List: 1. DVT (deep venous thrombosis) 2. Thrombocytopenia 3. Metastatic disease 4. Intractable pain 5. Colostomy in place 6. Rectal carcinoma Pain Ratin Pain Location: abdomen Pain Goal: Remain pain free Pain Plan: morphine Tomorrow's Labs & Rationales: cbc icu labs
[2017-10-14 08:00] VITALS: BP 120/66
--- NOTE | 2017-10-14 08:38 | PN- Diabetes ---
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 She came into the hospital with change in mental status and evidence of hypoglycemia most likely due to sulphonylurea. She received octreotide. She has been off on all antidiabetic medications. Currently, she has sepsis of urinary origin. Urine culture is growing out GNR. There is S. Aureus in sputum culture also. She is now on vancomycin and ceftazidime. Patient is receiving D5 1/2 NS at 75 ml/hour and her FSGs were 168, 89, 82, 72, 76 and 73. Plan: continue monitoring FSGs. will follow. Subjective Subjective: She now has sepsis. Objective Last 24 Hrs of Vital Signs/I&O Vital Signs Date Time Temp Pulse Resp B/P B/P Pulse O2 O2 Flow FiO2 Mean Ox Delivery Rate 10/14 0400 95 Nasal 2.0L Cannula 10/14 0000 99 Nasal 2.0L Cannula 10/14 0000 98.1 100 20 108/60 99 Nasal 2.0L Cannula 10/13 2122 96 Nasal 2.0L Cannula 10/13 2000 97 Nasal 2.0L Cannula 10/13 1600 98 Nasal 2.0L Cannula 10/13 1600 99.5 110 20 102/80 98 Nasal 2.0L Cannula 10/13 1423 95 Nasal 2.0L Cannula 10/13 1200 99 Nasal 2.0L Cannula Intake & Output 10/14 1600 10/14 0800 10/14 0000 Intake Total 540 600 Output Total 850 400 Balance -310 200 Intake, IV 540 600 Number 0 0 Bowel Movements Output, 650 150 Drainage Output, Stool 0 Output, Urine 200 250 Findings Pertinent Lab/Tha Results: Laboratory Tests 10/14 0200 Chemistry Sodium (137 - 145 mmol/L) 140 Potassium (3.5 - 5.1 mmol/L) 5.0 Chloride (98 - 107 mmol/L) 111 H Carbon Dioxide (22 - 30 mmol/L) 23 Anion Gap (5 - 16) 6 BUN (7 - 17 mg/dL) 23 H Creatinine (0.5 - 1.0 mg/dL) 0.6 Estimated GFR (>60 ml/min) > 60 Glucose (65 - 99 mg/dL) 68 Calcium (8.4 - 10.2 mg/dL) 7.3 L Phosphorus (2.5 - 4.5 mg/dL) 3.7 Magnesium (1.6 - 2.3 mg/dL) 1.8 Total Bilirubin (0.2 - 1.3 mg/dL) 1.6 H AST (14 - 36 U/L) 158 H ALT (9 - 52 U/L) 61 H Albumin (3.5 - 5.0 g/dL) 1.7 L Hematology CBC w Diff MAN DIFF ORDERED WBC (4.8 - 10.8 /CUMM) 10.5 RBC (4.20 - 5.40 /CUMM) 3.71 L Hgb (12.0 - 16.0 G/DL) 9.0 L Hct (37 - 47 %) 27.8 L MCV (81.0 - 99.0 FL) 74.8 L MCH (27.0 - 31.0 PG) 24.2 L MCHC (33.0 - 37.0 G/DL) 32.3 L RDW (11.5 - 14.5 %) 24.1 H Plt Count (130 - 400 /CUMM) 179 MPV (7.4 - 10.4 FL) 7.6 Gran % (42.2 - 75.2 %) 88.7 H Lymphocytes % (20.5 - 51.1 %) 7.4 L Monocytes % (1.7 - 9.3 %) 3.6 Eosinophils % (0 - 5 %) 0.2 Basophils % (0.0 - 2.0 %) 0.1 Absolute Granulocytes (1.4 - 6.5 /CUMM) 9.3 H Segmented Neutrophils (42.2 - 75.2 %) 83 H Absolute Lymphocytes (1.2 - 3.4 /CUMM) 0.8 L Lymphocytes (20.5 - 51.1 %) 11 L Monocytes (1.7 - 9.3 %) 5 Absolute Monocytes (0.10 - 0.60 /CUMM) 0.4 Eosinophils (0 - 5.0 %) 1 Absolute Eosinophils (0.0 - 0.7 /CUMM) 0 Absolute Basophils (0.0 - 0.2 /CUMM) 0 Platelet Estimate (ADEQUATE) ADEQUATE Polychromasia 1+ Hypochromic-Microcytic 1+ Poikilocytosis 1+ Anisocytosis 1+ Microcytic Cells 1+ Target Cells FEW Ovalocytes 1+ Elliptocytes FEW Other Body Source Fld Total RBCs Counted (%) 100
--- NOTE | 2017-10-14 10:47 | ECHOCARDIOGRAM REPORT ---
MOHAMUD KUMARI Age: 76 : 1940 Gender: F Exam Date: 10/13/2017 09:44 Exam Location: [facility] Ht (in): 59 Wt (lb): 207 BSA: 2.03 BP: 114 / 50 Ordering Physician: Jonathan Cade MD Referring Physician: Jonathan Cade MD Technologist: Carlo Quiros [facility] Room Number: 112-1 Indications: HEART FAILURE Rhythm: Technical Quality: Technically difficult study FINDINGS Left Ventricle Normal global left ventricular size, wall thickness, systolic function with no obvious regional wall motion abnormalities. Left ventricular ejection fraction is estimated at > 55 %. Abnormal relaxation filling pattern of the left ventricle (stage 1 diastolic dysfunction). Right Ventricle Normal right ventricular size and function. Right Atrium Normal right atrial size. Left Atrium Mild left atrial dilatation. Mitral Valve No mitral stenosis. Mild mitral annular calcification. Trace mitral regurgitation. Aortic Valve Diffuse thickening of the aortic valve cusps with reduced excursion. [id number] aortic stenosis. Tricuspid Valve Structurally normal tricuspid valve. Mild tricuspid regurgitation. Unable to estimate the right ventricular systolic pressure. Pulmonic Valve Pulmonic valve not well visualized. Pericardium Small pericardial effusion. No echocardiographic findings to suggest a hemodynamically significant pericardial effusion. Great Vessels Normal size aortic root. CONCLUSIONS Technically difficult study. Normal global left ventricular size, wall thickness, systolic function with no obvious regional wall motion abnormalities. Left ventricular ejection fraction is estimated at > 55 %. Abnormal relaxation filling pattern of the left ventricle (stage 1 diastolic dysfunction). Normal right ventricular size and function. Mild left atrial dilatation. Small pericardial effusion. No echocardiographic findings to suggest a hemodynamically significant pericardial effusion. [id number] aortic stenosis. Tanvir Langley M.D. (Electronically Signed) Final Date: 14 October 2017 10:46 MEASUREMENTS (Male / Female) Normal Values 2D ECHO LV Diastolic Diameter PLAX 3.4 cm 4.2 - 5.9 / 3.9 - 5.3 cm LV Systolic Diameter PLAX 2.4 cm 2.1 - 4.0 cm LV Fractional Shortening PLAX 29.4 % 25 - 46 % LV Ejection Fraction 2D Teich 57.5 % IVS Diastolic Thickness 0.9 cm LVPW Diastolic Thickness 1.0 cm LV Relative Wall Thickness 0.6 RV Internal Dim ED PLAX 3.3 cm 1.9 - 3.8 cm LVOT Diameter 1.8 cm Aortic Root Diameter 2.6 cm LA Systolic Diameter LX 3.3 cm 3.0 - 4.0 / 2.7 - 3.8 cm LA Volume 28.0 cm 18 - 58 / 22 - 52 cm Ascending Aorta Diameter 2.8 cm DOPPLER AV Peak Velocity 251.0 cm/s AV Peak Gradient 25.2 mmHg AV Mean Velocity 176.0 cm/s AV Mean Gradient 14.0 mmHg AV Velocity Time Integral 56.3 cm LVOT Peak Velocity 105.0 cm/s LVOT Peak Gradient 4.4 mmHg LVOT Mean Velocity 72.5 cm/s LVOT Mean Gradient 2.0 mmHg LVOT Velocity Time Integral 26.2 cm LVOT Stroke Volume 66.7 cm AV Area Cont Eq vti 1.2 cm AV Area Cont Eq pk 1.1 cm MV Peak Velocity 125.0 cm/s MV Peak Gradient 6.3 mmHg MV Mean Velocity 77.2 cm/s MV Mean Gradient 3.0 mmHg Mitral E Point Velocity 80.9 cm/s Mitral A Point Velocity 118.0 cm/s Mitral E to A Ratio 0.7 MV PHT Velocity 102.0 cm/s MV Deceleration Comal 437.0 cm/s MV Pressure Half Time 70.0 ms MV Area PHT 3.1 cm MV Deceleration Time 468.0 ms TR Peak Velocity 288.0 cm/s TR Peak Gradient 33.2 mmHg Right Atrial Pressure 5.0 mmHg Pulmonary Artery Systolic Pressu 38.2 mmHg Right Ventricular Systolic Press 38.2 mmHg PV Peak Velocity 125.0 cm/s PV Peak Gradient 6.3 mmHg PV Mean Velocity 93.2 cm/s PV Mean Gradient 4.0 mmHg PV Velocity Time Integral 30.9 cm LV E' Lateral Velocity 6.6 cm/s Mitral E to LV E' Lateral Ratio 12.2 LV E' Septal Velocity 5.8 cm/s Mitral E to LV E' Septal Ratio 14.1
[2017-10-14 16:00] VITALS: BP 130/70
[2017-10-15] VITALS: BP 120/56
[2017-10-15 04:37] LABS: ABSOLUTE BASOPHIL COUNT 0 /CUMM (0.0-0.2); ABSOLUTE EOSINOPHIL COUNT 0 /CUMM (0.0-0.7); ABSOLUTE LYMPH COUNT 0.8 /CUMM (1.2-3.4); ABSOLUTE MONOCYTE COUNT 0.7 /CUMM (0.10-0.60); BASOPHIL % 0.1 % (0.0-2.0); EOSINOPHIL % 0.2 % (0-5); GRANULOCYTE % 89.4 % (42.2-75.2); HEMATOCRIT 27.6 % (37-47); MEAN CORPUSCULAR HGB 23.7 PG (27.0-31.0); MEAN CORPUSCULAR HGB CONC 31.8 G/DL (33.0-37.0); MEAN CORPUSCULAR VOLUME 74.5 FL (81.0-99.0); MEAN PLATELET VOLUME 7.3 FL (7.4-10.4); PLATELET COUNT 126 /CUMM (130-400); RBC DISTRIBUTION WIDTH 22.7 % (11.5-14.5); RED BLOOD CELL CT 3.71 /CUMM (4.20-5.40); WHITE BLOOD CELL COUNT 14.5 /CUMM (4.8-10.8)
[2017-10-15 08:00] VITALS: BP 140/60
--- NOTE | 2017-10-15 08:35 | PN- CRCU ---
Subjective HPI/Critical Care Issues: Sepsis - uti? Metabolic acidosis lactic acidosis #1 hypoglycemia- resolved #2 back pain #3 hyponatremia-resolved #4 thrombocytopenia, ruled out heparin-induced thrombocytopenia- resolving #5 right upper extremity venous thrombus #6 metabolic encephalopathy #7 anemia-iron deficiency anemia and anemia of chronic disease #8 metastatic rectal cancer with metastases to liver and lung #9 leukocytosis 24 hours event Patient was seen and examined this morning. She remained lethargic but arousable to vocal commands. She remained afebrile and vital signs remained within reasonable range. She has low urine output since admission, her urine were slightly present change yesterday and now start clearing up. Objective Current Medications: Current Medications Sig/Rose Start time Last Medication Dose Route Stop Time Status Admin Albuterol Sulfate 3 ML Q6P PRN 10/11 0830 AC 10/12 INH 2050 Benzonatate 100 MG TID 10/09 2099 AC 10/11 PO 1547 Ceftazidime 1,000 MG Q12 10/12 0900 AC 10/15 IV 0853 Dextrose/Sodium 1,000 ML Q10H 10/15 2200 AC Chloride IV Dextrose/Sodium 1,000 ML Q13H 10/14 0515 DC 10/15 Chloride IV 0547 Enoxaparin Sodium 100 MG BID 10/13 2100 AC 10/15 SC 0853 Guaifenesin 10 ML Q6P PRN 10/09 2015 AC 10/10 PO 0524 Levothyroxine Sodium 12.5 MCG DAILY 10/14 0900 AC 10/15 IV 1154 Morphine Sulfate 2 MG Q4P PRN 10/12 1115 AC 10/15 IV 0935 Ondansetron HCl 4 MG Q8P PRN 10/06 1845 AC 10/12 IV 1147 Oxycodone HCl 5 MG Q3P PRN 10/09 0400 AC 10/15 PO 0951 Pantoprazole Sodium 40 MG DAILY 10/13 0900 AC 10/15 IV 0853 Polyethylene Glycol 17 GM DAILY PRN 10/08 1145 AC 10/10 PO 0856 Potassium Chloride 20 MEQ Q10H 10/15 1200 AC Dextrose/Sodium 1,000 ML IV 10/15 2159 Chloride Potassium Chloride 20 MEQ Q10H 10/15 1145 CAN Dextrose/Sodium 1,000 ML IV 10/15 2144 Chloride Potassium Chloride 20 MEQ ONCE ONE 10/15 1130 DC IV 10/15 1131 Potassium Chloride 20 MEQ ONCE ONE 10/15 0845 DC PO 10/15 0846 Senna/Docusate Sodium 2 TAB DAILY PRN 10/11 0900 AC 10/15 PO 0951 Vancomycin HCl 1,500 MG DAILY 10/12 1400 AC 10/15 Dextrose/Water 250 ML IV 1154 Vitamin A/Vitamin D 1 BROWN BID 10/11 1300 AC 10/15 TOP 0853 Zinc Oxide 1 BROWN BID 10/11 1300 AC 10/15 TOP 0852 Vital Signs & I&O Last 24 Hrs of Vitals and I&O: Vital Signs Date Time Temp Pulse Resp B/P B/P Pulse O2 O2 Flow FiO2 Mean Ox Delivery Rate 10/15 0800 99.0 112 22 140/60 91 Nasal 2.0L Cannula 10/15 0400 95 Nasal 2.0L Cannula 10/15 0000 94 Nasal 2.0L Cannula 10/15 0000 99.1 86 20 120/56 94 Nasal 2.0L Cannula 10/14 2054 95 Nasal 2.0L Cannula 10/14 1917 96 Nasal 2.0L Cannula 10/14 1657 Nasal 2.0L Cannula 10/14 1600 96 Nasal 2.0L Cannula 10/14 1600 97.4 104 20 130/70 96 Nasal 2.0L Cannula Intake & Output 10/15 1600 10/15 0800 10/15 0000 Intake Total 800 700 Output Total 638 590 Balance 162 110 Intake, IV 800 700 Output, 450 Drainage Output, Other 500 Output, Stool 10 30 Output, Urine 128 110 Exam General Appearance: no apparent distress, alert, sedated, lethargic Head: atraumatic Neck: supple Respiratory: normal breath sounds, chest non-tender Cardiovascular: regular rate/rhythm, edema Abdomen: soft, colostomy bag in place Back: normal inspection Extremities: pedal edema Neurologic/Psychiatric: awake Results Last 24 Hrs of Lab Results: Laboratory Tests 10/15/17 0400: Anion Gap 8, Estimated GFR > 60, BUN/Creatinine Ratio 25.7 H, CBC w Diff MAN DIFF ORDERED, RBC 3.71 L, MCV 74.5 L, MCH 23.7 L, MCHC 31.8 L, RDW 22.7 H, MPV 7.3 L, Gran % 89.4 H, Lymphocytes % 5.5 L, Monocytes % 4.8, Eosinophils % 0.2, Basophils % 0.1, Absolute Granulocytes 13.0 H, Absolute Lymphocytes 0.8 L , Absolute Monocytes 0.7 H, Absolute Eosinophils 0, Absolute Basophils 0, Platelet Estimate DECREASED, Hypochromic-Microcytic 3+, Poikilocytosis 1+, Anisocytosis 1+ Impression/Plan Impression/Plan Impression/Plan: Etiology for her acute change in mental status is likely due to hypoglycemia, likely secondary to sulfonylurea use or metastasis to liver. Since she does not have any significant renal dysfunction, and has been on sulfonylureas for a while, it seems unlikely that it could be due to sulfonylureas. Other oral hypoglycemics that she is currently on are not known to be a reason for hypoglycemia. The treatment for sulfonyl induced hypoglycemia ideally results within first 24-48 hours. Other etiologies such as neuroendocrine cells from GI tract metastasizing to liver, or decreased gluconeogenesis ability of liver are likely. Elevated insulin level, makes me think that intact beta cells are responsible for the secretion, and limited gluconeogenic reserve is possible given his liver mets. Given the history of cancer, would likely have higher glucose demand secondary to Warburg effect. Problem list: Sepsis of unknown origin, metabolic acidosis, lactic acidosis #1 hypoglycemia #2 back pain #3 hyponatremia-chronic #4 thrombocytopenia, rule out heparin-induced thrombocytopenia #5 right upper extremity venous thrombus #6 metabolic encephalopathy #7 anemia-iron deficiency anemia and anemia of chronic disease #8 metastatic rectal cancer with metastases to liver and lung #9 leukocytosis Plan: Respiratory Infectious: sepsis -UTI/lactic acidosis/metabolic acidosis Patient had worsening leukocytosis with granulocytosis, left shift, tachycardia, lactic acidosis with Gram stain of lower respiratory cultures revealed MRSA staph aureus. Blood cultures results were pending. Patient was started on ceftaz and vancomycin to broaden the coverage for healthcare associated microbes. Although lung infection seems likely, last cxr did not reveal any consolidation. She also had a recent abdominal surgery, which would make the intra-abdominal infection possible, which needs to be ruled out. she has been having serous discharge around the surgical site, which seemed to be from the intrabdominal wall, and the last ct scan abdomen revealed anasarca. CT chest abdomen pelvis didn't reveal any infection. Pulmonary embolism was ruled out. * Continue IV ceftaz 1 g every 12, IV vancomycin 1.5 g daily * Respiratory culture positive for MRSA * Urine culture positive for gram-negative rods KLEBSIELLA * Monitor leukocytosis/fever * Continue IV fluids given lactic acidosis and sepsis * Trended lactic acid * ABG for her respiratory status worsens * Last ABG showed pH 7.25, 16, 36 * Low threshold for intubation * TRC nebs * Needs hourly suction * Provide supplemental oxygen to maintain saturation above 90 Circulatory/CVS: Borderline hypotension * Continue to monitor vitals every hourly. * Hold antihypertensives at this time. * Takes quinapril at home for hypertension, will hold the medication given her borderline blood pressure 90/50 * Will provide adequate hydration Hematology: Anemia * Guaiac positive stools, given history of rectal cancer and recent surgery. Thrombocytopenia Change in platelet count-thrombocytopenia that was noted at the time of admission, with normal platelet count prior to her hospital admission which was around 7-10 days ago, with more than 50% drop in platelets, and thrombosis makes us think that she might have developed heparin-induced thrombocytopenia, which should be investigated. * For thrombocytopenia, started argatroban after discussing risks versus benefits with the patient's family. * Argatroban drip was stopped 10/10/2017 * Started Xarelto 15 mg twice daily for right upper extremity DVT, HOWEVER REFUSED ORAL MEDS, STARTED SC LOVENOX 100 BID 10/13 * Consider long-term anticoagulation, if the patient's family wishes. * Follow-up heparin-induced thrombocytopenia panel- neg. * No heparin products at this time. Metabolic: Hypoglycemia she was admitted to ICU for severe hypoglycemia with glucose leve in the 20s. When she was in rehab, she was on Janumet, Jardiance, glimepiride and Humalog. As per her daughter, her po intake has been poor. she was on 10% dextrose drip. Her random cortisol was 24.3. But her insulin level was 46.5. patient received Octrotide at around 2 am. Since then, her glucose level has been more stable. * The underlying caueses of severe hypoglycemia-- poor intake, sulfonyureas, extensive metastatic lesions and liver dysfunction * D10 dextrose drip was discontinued given her serum glucose 135 * No further requirements for octreotide or glucagon * Blood glucose maintaining at stable levels * Will monitor FSG 4 hours chronic hyponatremia she has moderate hyponatremia that is chronic and associated with no symptoms/ no intracranial pathology * 127- 132 * Continue to monitor sodium level * Will treat aggressively if sodium drops below 120 with the symptoms headache, fatigue, nausea, vomiting, gait disturbances, confusion. -------- Alimentary: If she is not able to take anything p.o., would consider IV medications in her. Refusing oral medications Poor oral intake ----- Neurology: * Monitor for an acute altered mental changes. * Seizure precautions. * Use morphine 2 mg every 4 hourly, discussed with the family about side effects. stage IV rectal cancer with liver and lung metastasis status post colectomy and colostomy She was seen in consultation by radiation oncologist on 09/29/17 for her known stage IV rectal carcinoma with widespread metastatic disease. She is status post diverting colostomy on 09/26/17 and was subsequently discharged to an extended care facility. She continues with pain presumably from the rectal mass. She has expressed her desire to move forward with palliative radiation therapy. * A total of 10 fractions (3000 cGy) is being prescribed. * She received 2 treatments so far 10/10 and 10/11. Postponed further palliative radiotherapy given her sickness * History of rectal cancer, would need a discussion about goals of care * Continue to monitor abnormal liver chemistries. * No systemic chemotherapy at this time until she begins functionality. * palliative specialist on board * Radiation oncologist on board Continue home medications Hypothyroidism IV levothyroxine 12.5 g Hyperlipidemia -stopped Lipitor given transaminitis History of diabetes mellitus Accu-Cheks. Held home meds given hypoglycemia Hypertension held home medication given hypotension at time of admission Stage IV rectal cancer with metastasis to lung and liver status post diverticular colostomy 09/27/2017 Coronary artery disease status post stents DVT prophylaxis: annyralto Alps for now. Housekeeping ICU #1 Central line- none #2 Arterial line- none #3 Blake catheter- yes- 10/11 #4 Rectal tube - none #5 NG tube - none #6 IV/peripheral line- yes. 10/07/17 #7 IV drips- d51/2 ns #8 Vent settings: none #9 pressors: none Family still insistent about keeping her full code Given her stable hemodynamic status, we will transfer her to Code Status: Full Code
--- NOTE | 2017-10-15 10:00 | PN- Att Addend ---
Attending Addendum Attending Brief Note Patient seen and examined. Plan of care discussed with the medical team and the patient. Available lab work and radiology test reports were reviewed. Overnight patient was noted to have hematuria. Urine in the bag is dark. Patient remains a tachycardic intermittently. She also appears tachypneic. Denies any fever chills or difficulty breathing. Exam: General: Patient awake lethargic and oriented without any distress CVS: S1 plus S2 without any murmur or gallops Chest: Few scattered crepitation without any wheeze. There is no respiratory distress. Abdomen: Soft non-tender, bowel sound present, no guarding or rebound; colostomy bag noted [employer]GER: Awake alert oriented without any focal neuro deficit and follows commands appropriately Extremities: 3+ bilateral lower extremity edema; no clubbing or cyanosis noted; skin appears pale Assessment * Suspected MRSA bronchitis/pneumonia * UTI with Klebsiella * History of for stage IV colon cancer with liver and lung metastases * History of from cytopenia chronic * Metabolic encephalopathy gradually improving Plan * Continue Vanco and Fortaz * Taper oxygen * Out of bed to chair * Swallow evaluation * Repeat CBC tomorrow Current Medications Sig/Rose Start time Last Medication Dose Route Stop Time Status Admin Albuterol Sulfate 3 ML Q6P PRN 10/11 0830 AC 10/12 INH 2050 Benzonatate 100 MG TID 10/09 2100 AC 10/11 PO 1547 Ceftazidime 1,000 MG Q12 10/12 0900 AC 10/15 IV 0853 Dextrose/Sodium 1,000 ML Q13H 10/14 0515 AC 10/15 Chloride IV 0547 Enoxaparin Sodium 100 MG BID 10/13 2100 AC 10/15 SC 0853 Guaifenesin 10 ML Q6P PRN 10/09 2015 10/10 PO 0524 Levothyroxine Sodium 12.5 MCG DAILY 10/14 0900 AC 10/14 IV 0938 Morphine Sulfate 2 MG Q4P PRN 10/12 1115 AC 10/15 IV 0547 Ondansetron HCl 4 MG Q8P PRN 10/06 1845 AC 10/12 IV 1147 Oxycodone HCl 5 MG Q3P PRN 10/09 0400 AC 10/15 PO 0951 Pantoprazole Sodium 40 MG DAILY 10/13 09 AC 10/15 IV 0853 Polyethylene Glycol 17 GM DAILY PRN 04/14 1145 AC 10/10 PO 0856 Potassium Chloride 20 MEQ ONCE ONE 10/15 0845 DC PO 10/15 0846 Senna/Docusate Sodium 2 TAB DAILY PRN 10/11 0900 AC 10/15 PO 0951 Vancomycin HCl 1,500 MG DAILY 10/12 1400 AC 10/14 Dextrose/Water 250 ML IV 0938 Vitamin A/Vitamin D 1 BROWN BID 10/11 1300 AC 10/15 TOP 0853 Zinc Oxide 1 BROWN BID 10/11 1300 AC 10/15 TOP 0852 Laboratory Tests 10/15/17 0400: Anion Gap 8, Estimated GFR > 60, BUN/Creatinine Ratio 25.7 H, CBC w Diff MAN DIFF ORDERED, RBC 3.71 L, MCV 74.5 L, MCH 23.7 L, MCHC 31.8 L, RDW 22.7 H, MPV 7.3 L, Gran % 89.4 H, Lymphocytes % 5.5 L, Monocytes % 4.8, Eosinophils % 0.2, Basophils % 0.1, Absolute Granulocytes 13.0 H, Absolute Lymphocytes 0.8 L , Absolute Monocytes 0.7 H, Absolute Eosinophils 0, Absolute Basophils 0, Platelet Estimate DECREASED, Hypochromic-Microcytic 3+, Poikilocytosis 1+, Anisocytosis 1+ 10/14/17 0200: Anion Gap 6, Estimated GFR > 60, Glucose 68, Calcium 7.3 L, Phosphorus 3.7, Magnesium 1.8, Total Bilirubin 1.6 H, AST 158 H, ALT 61 H, Albumin 1.7 L, CBC w Diff MAN DIFF ORDERED, RBC 3.71 L, MCV 74.8 L, MCH 24.2 L, MCHC 32.3 L , RDW 24.1 H, MPV 7.6, Gran % 88.7 H, Lymphocytes % 7.4 L, Monocytes % 3.6, Eosinophils % 0.2, Basophils % 0.1, Absolute Granulocytes 9.3 H, Segmented Neutrophils 83 H, Absolute Lymphocytes 0.8 L, Lymphocytes 11 L, Monocytes 5, Absolute Monocytes 0.4, Eosinophils 1, Absolute Eosinophils 0, Absolute Basophils 0, Platelet Estimate ADEQUATE, Polychromasia 1+, Hypochromic- Microcytic 1+, Poikilocytosis 1+, Anisocytosis 1+, Microcytic Cells 1+, Target Cells FEW, Ovalocytes 1+, Elliptocytes FEW, Fld Total RBCs Counted 100 10/13/17 0730: Lactic Acid 2.0 10/13/17 0445: Lactic Acid 2.2 H 10/13/17 0445: Anion Gap 7, Estimated GFR > 60, Glucose 96, Calcium 7.5 L, Phosphorus 4.3, Magnesium 1.7, Total Bilirubin 1.4 H, AST 239 H, ALT 67 H, Albumin 1.6 L, CBC w Diff MAN DIFF ORDERED, RBC 3.77 L, MCV 74.7 L, MCH 23.9 L, MCHC 32.0 L , RDW 22.9 H, MPV 7.4, Gran % 85.5 H, Lymphocytes % 8.9 L, Monocytes % 5.6, Eosinophils % 0, Basophils % 0, Absolute Granulocytes 8.0 H, Segmented Neutrophils 78 H, Band Neutrophils 9 H, Absolute Lymphocytes 0.8 L, Lymphocytes 9 L, Monocytes 3, Absolute Monocytes 0.5, Eosinophils 1, Absolute Eosinophils 0, Absolute Basophils 0, Platelet Estimate ADEQUATE, Polychromasia 1 +, Hypochromic-Microcytic 2+, Anisocytosis 1+, Microcytic Cells 1+, Target Cells 1+, Stomatocytes 1+, Elliptocytes 1+ 10/13/17 0115: Lactic Acid 2.6 H 10/12/17 2210: Lactic Acid 2.6 H 10/12/17 1820: Lactic Acid 2.5 H 10/12/17 1430: Lactic Acid 3.1 H 10/12/17 1130: Lactic Acid 3.7 H Vital Signs Date Time Temp Pulse Resp B/P B/P Pulse O2 O2 Flow FiO2 Mean Ox Delivery Rate 10/15 0400 95 Nasal 2.0L Cannula 10/15 0000 94 Nasal 2.0L Cannula 10/15 0000 99.1 86 20 120/56 94 Nasal 2.0L Cannula 10/144 95 Nasal 2.0L Cannula 10/14 1917 96 Nasal 2.0L Cannula 10/14 1657 Nasal 2.0L Cannula 10/14 1600 96 Nasal 2.0L Cannula 10/14 1600 97.4 104 20 130/70 96 Nasal 2.0L Cannula 10/14 1205 98 Nasal 2.0L Cannula Intake & Output 10/15 1600 10/15 0800 10/15 0000 Intake Total 800 700 Output Total 638 590 Balance 162 110 Intake, IV 800 700 Output, 450 Drainage Output, Other 500 Output, Stool 10 30 Output, Urine 128 110
[2017-10-15 16:00] VITALS: BP 142/68
[2017-10-15 17:05] VITALS: BP 142/60
[2017-10-15 22:58] VITALS: BP 120/56
[2017-10-16 06:58] VITALS: BP 120/60
[2017-10-16 09:25] LABS: ABSOLUTE BASOPHIL COUNT 0 /CUMM (0.0-0.2); ABSOLUTE EOSINOPHIL COUNT 0 /CUMM (0.0-0.7); ABSOLUTE GRANULOCYTE CT 12.3 /CUMM (1.4-6.5); ABSOLUTE LYMPH COUNT 0.7 /CUMM (1.2-3.4); ABSOLUTE MONOCYTE COUNT 0.7 /CUMM (0.10-0.60); BASOPHIL % 0 % (0.0-2.0); EOSINOPHIL % 0.1 % (0-5); GRANULOCYTE % 89.7 % (42.2-75.2); HEMATOCRIT 28.9 % (37-47); MEAN CORPUSCULAR HGB 24.2 PG (27.0-31.0); MEAN CORPUSCULAR VOLUME 75.6 FL (81.0-99.0); MEAN PLATELET VOLUME 6.9 FL (7.4-10.4); RBC DISTRIBUTION WIDTH 23.9 % (11.5-14.5); RED BLOOD CELL CT 3.82 /CUMM (4.20-5.40)
--- NOTE | 2017-10-16 09:50 | PN- Housestaff ---
Subjective Follow-up For: -Sepsis from suspected MRSA bronchitis/pneumonia -Klebsiella UTI -Metabolic and lactic acidosis -Hypoglycemia- resolved - back pain - hyponatremia-resolved - thrombocytopenia, ruled out heparin-induced - right upper extremity venous thrombus - metabolic encephalopathy - anemia-iron deficiency anemia and anemia of chronic disease -metastatic rectal cancer with metastases to liver and lung - leukocytosis Complaints: no complaints Subjective: Complains of intermittent dry coughing. Denies chest pain, palpitations or shortness of breath. She denies abdominal pain at this time. She denies nausea or vomitting. She is having brown stools from cholostomy bag and draining clear fluid ?urine or ?ascitic fluid in ostomy bag over umbilicus. Review of Systems Constitutional: Reports: see HPI. Denies: chills, fever, weakness. Objective Last 24 Hrs of Vital Signs/I&O Vital Signs Date Time Temp Pulse Resp B/P B/P Pulse O2 O2 Flow FiO2 Mean Ox Delivery Rate 10/16 1439 98.8 78 18 118/52 97 10/16 0658 97.5 90 18 120/60 97 Nasal 2.0L Cannula 10/16 0000 Nasal 2.0L Cannula 10/15 2258 97.4 91 20 120/56 97 Nasal 2.0L Cannula 10/15 1705 97.4 96 20 142/60 95 Nasal 2.0L Cannula 10/15 1600 97.5 90 18 142/68 98 Nasal 2.0L Cannula Intake & Output 10/16 1600 10/16 0800 10/16 0000 Intake Total 800 400 Output Total 550 600 Balance 250 -200 Intake, IV 800 400 Output, Other 500 400 Output, Stool 50 100 Output, Urine 100 Physical Exam General Appearance: Alert, Oriented X3, Cooperative, No Acute Distress Skin: No Rashes Skin Temp/Moisture Exam: Warm/Dry Sepsis Skin Exam (color): Normal for Ethnicity HEENT: Atraumatic, PERRLA, EOMI, Mucous Membr. moist/pink Neck: Supple, No JVD, No thryomegaly Lymphatic: Cervical nl Cardiovascular: Regular Rate, Normal S1, Normal S2, No Murmurs Lungs: Clear to Auscultation, Reduced air entry in lung bases bilaterally Abdomen: Normal Bowel Sounds, Soft, No Tenderness, Colostomy in situ draining brown loose stool. ostomy bag in situ draining clear tamika fluid ? urine from stoma around umbilicus Neurological: Normal Speech, Normal Tone, Cranial Nerves 3-12 NL Extremities: Bilateral pitting pedal edema Current Medications: Current Medications Sig/Rose Start time Last Medication Dose Route Stop Time Status Admin Albuterol Sulfate 3 ML Q6P PRN 10/11 0830 NV 10/12 INH 2050 Benzonatate 100 MG TID 10/09 2100 10/16 PO 1404 Ceftazidime 1,000 MG Q12 10/16 1515 AC IV Ceftazidime 1,000 MG Q12 10/12 0900 NV 10/15 IV 2136 Dextrose/Sodium 1,000 ML Q10H 10/15 2200 10/16 Chloride IV 1031 Enoxaparin Sodium 100 MG BID 10/13 2100 10/16 SC 1013 Guaifenesin 10 ML Q6P PRN 10/09 2015 10/10 PO 0524 Levothyroxine Sodium 12.5 MCG DAILY 10/14 0900 10/16 IV 1013 Morphine Sulfate 2 MG Q4P PRN 10/12 1115 10/15 IV 0935 Ondansetron HCl 4 MG Q8P PRN 10/06 1845 AC 10/12 IV 1147 Oxycodone HCl 5 MG Q3P PRN 10/09 0400 NV 10/15 PO 0951 Pantoprazole Sodium 40 MG DAILY 10/13 09 10/16 IV 1013 Polyethylene Glycol 17 GM DAILY PRN 10/08 1145 10/10 PO 0856 Potassium Chloride 20 MEQ Q10H 10/15 1200 DC 10/15 Dextrose/Sodium 1,000 ML IV 10/15 2159 1400 Chloride Senna/Docusate Sodium 2 TAB DAILY PRN 10/11 09 10/15 PO 0951 Vancomycin HCl 1,500 MG DAILY 10/17 0900 AC Dextrose/Water 250 ML IV Vancomycin HCl 1,500 MG DAILY 10/12 1400 DC 10/16 Dextrose/Water 250 ML IV 1040 Vitamin A/Vitamin D 1 BROWN BID 10/11 1300 10/16 TOP 1013 Zinc Oxide 1 BROWN BID 10/11 1300 10/16 TOP 1013 Last 24 Hrs of Lab/Tha Results Last 24 Hrs of Labs/Mics: Laboratory Tests 10/16/17 0811: Anion Gap 9, Estimated GFR > 60, BUN/Creatinine Ratio 23.8, CBC w Diff NO MAN DIFF REQ, RBC 3.82 L, MCV 75.6 L, MCH 24.2 L, MCHC 32.0 L, RDW 23.9 H, MPV 6.9 L, Gran % 89.7 H, Lymphocytes % 5.3 L, Monocytes % 4.9, Eosinophils % 0.1 , Basophils % 0, Absolute Granulocytes 12.3 H, Absolute Lymphocytes 0.7 L, Absolute Monocytes 0.7 H, Absolute Eosinophils 0, Absolute Basophils 0 Lines/Diet/Fluids Catheters/Tubes: edwards Assessment/Plan Assessment: Ms Russo is a 76-year-old woman with PMHx of 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 Montoya), coronary artery disease status post stents, type 2 diabetes, hypothyroidism hyperlipidemia, hypertension who was brought to the hospital after she was found to have severe back pain and altered mental status and found to have had hypoglycemia upto 22 mg/dl at the time of presentation which could have resulted in altered mentation. She was transferred to ICU for management of hypoglycemia and altered mental status and transferred back to the General medicine floor yesterday. Her mental status is improved. She is still being tmanaged for suspected MRSA bronchitis/pneumonia and a UTI from klebsiella. She has persistent coughing particularly when she lies down and may be having some aspiration. A swallow evaluation is pending. She remains on oxygen. In addition she is having clear tamika fluid, from an umbilical stoma which is concerning for a bladder fistula or ascitic fluid leak. Her platelet count has dropped to 64 this morning and her anticoagulation may need to be held if discontinues tomorrow despite her known DVT. Her prognosis remains quite poor. Plan 1. Suspected MRSA bronchitis/pneumonia- * Patient white cell count is slightly down at 13.7 compared to yesterday, but remains high despite antibiotic treatment. * Continue IV vancomycin 1 g daily * Continue oxygen supplementation and taper as tolerated 2. UTI with Klebsiella * Continuous IV Ceftaz 1 g every 12 hours 3. History of for stage IV colon cancer with liver and lung metastases * Patient's overall prognosis is poor and CODE STATUS should be readdressed in the context of multiple comorbidities 5. Periumbilical tamika fluid discharge concerning for peritoneal vs bladder fistula * Will send fluid from ostomy over umbilicus creatinine level to determine if it is urine (If <2 mg/dl it is unlikely to be urine). 5. Hypoglycemia * Fasting Blood glucose this morning 174 * Continue IV D5 water in half-normal saline at 100 mL an hour * Continue monitoring blood sugars 6. Dysphagia * Place patient on puree diet with honey-thick liquids for now * Patient to have swallow evaluation in the morning 7. Thrombocytopenia * Her platelet count has dropped to 64 this morning and despite her known DVT, her lovenox anticoagulation may need to be held if this drops further tomorrow. Problem List: 1. Rectal carcinoma 2. Colostomy in place 3. UTI (urinary tract infection) 4. Pneumonia Pain Ratin Pain Location: None Pain Goal: Remain pain free Pain Plan: IV morphine when necessary Tomorrow's Labs & Rationales: CBC DVT/Prophylaxis: mechanical
[2017-10-16 10:31] LABS: WHITE BLOOD CELL COUNT 13.7 /CUMM (4.8-10.8)
[2017-10-16 10:35] LABS: PLATELET COUNT 64 /CUMM (130-400)
--- NOTE | 2017-10-16 12:17 | PN- Att Addend ---
Attending Addendum Attending Brief Note Patient seen and examined. Plan of care discussed with the medical team and the patient. Available lab work and radiology test reports were reviewed. Patient was transferred from ICU to general medical floor. This morning she does not report any fever chills nausea vomiting or abdominal pain. She continues to have coughing especially when lying down. He is currently nothing by mouth and is asking for food. Exam: General: Patient awake lethargic and oriented without any distress CVS: S1 plus S2 without any murmur or gallops Chest: Few scattered crepitation without any wheeze. There is no respiratory distress. Abdomen: Soft non-tender, bowel sound present, no guarding or rebound; colostomy bag noted [employer]: Awake alert oriented without any focal neuro deficit and follows commands appropriately Extremities: 2-3+ bilateral lower extremity edema; no clubbing or cyanosis noted ; skin appears pale Assessment * Suspected MRSA bronchitis/pneumonia- patient white cell count remains high despite antibiotic treatment * UTI with Klebsiella * History of for stage IV colon cancer with liver and lung metastases * History of from cytopenia chronic * Metabolic encephalopathy gradually improving Plan * Continue Vanco. I'm not sure why Fortaz was discontinued. * Taper oxygen * Out of bed to chair * Swallow evaluation- I will start patient on pured diet with thickened liquids for now while we wait for swallow evaluation * Repeat CBC tomorrow Current Medications Sig/Rose Start time Last Medication Dose Route Stop Time Status Admin Albuterol Sulfate 3 ML Q6P PRN 10/11 0830 DC 10/12 INH 2050 Benzonatate 100 MG TID 10/09 2099 AC 10/16 PO 1013 Ceftazidime 1,000 MG Q12 10/12 0900 DC 10/15 IV 2136 Dextrose/Sodium 1,000 ML Q10H 10/15 2200 AC 10/16 Chloride IV 1031 Enoxaparin Sodium 100 MG BID 10/13 2100 AC 10/16 SC 1013 Guaifenesin 10 ML Q6P PRN 10/09 2014 AC 10/10 PO 0524 Levothyroxine Sodium 12.5 MCG DAILY 10/14 0900 AC 10/16 IV 1013 Morphine Sulfate 2 MG Q4P PRN 10/12 1115 AC 10/15 IV 0935 Ondansetron HCl 4 MG Q8P PRN 10/06 1845 AC 10/12 IV 1147 Oxycodone HCl 5 MG Q3P PRN 10/09 0400 DC 10/15 PO 0951 Pantoprazole Sodium 40 MG DAILY 10/13 0900 AC 10/16 IV 1013 Polyethylene Glycol 17 GM DAILY PRN 10/08 1145 AC 10/10 PO 0856 Potassium Chloride 20 MEQ Q10H 10/15 1200 DC 10/15 Dextrose/Sodium 1,000 ML IV 10/15 2159 1400 Chloride Senna/Docusate Sodium 2 TAB DAILY PRN 10/11 0900 AC 10/15 PO 0951 Vancomycin HCl 1,500 MG DAILY 10/12 1400 AC 10/16 Dextrose/Water 250 ML IV 1040 Vitamin A/Vitamin D 1 BROWN BID 10/11 1300 AC 10/16 TOP 1013 Zinc Oxide 1 BROWN BID 10/11 1300 AC 10/16 TOP 1013 Laboratory Tests 10/16/17 0811: Anion Gap 9, Estimated GFR > 60, BUN/Creatinine Ratio 23.8, CBC w Diff NO MAN DIFF REQ, RBC 3.82 L, MCV 75.6 L, MCH 24.2 L, MCHC 32.0 L, RDW 23.9 H, MPV 6.9 L, Gran % 89.7 H, Lymphocytes % 5.3 L, Monocytes % 4.9, Eosinophils % 0.1 , Basophils % 0, Absolute Granulocytes 12.3 H, Absolute Lymphocytes 0.7 L, Absolute Monocytes 0.7 H, Absolute Eosinophils 0, Absolute Basophils 0 10/15/17 0400: Anion Gap 8, Estimated GFR > 60, BUN/Creatinine Ratio 25.7 H, CBC w Diff MAN DIFF ORDERED, RBC 3.71 L, MCV 74.5 L, MCH 23.7 L, MCHC 31.8 L, RDW 22.7 H, MPV 7.3 L, Gran % 89.4 H, Lymphocytes % 5.5 L, Monocytes % 4.8, Eosinophils % 0.2, Basophils % 0.1, Absolute Granulocytes 13.0 H, Absolute Lymphocytes 0.8 L , Absolute Monocytes 0.7 H, Absolute Eosinophils 0, Absolute Basophils 0, Platelet Estimate DECREASED, Hypochromic-Microcytic 3+, Poikilocytosis 1+, Anisocytosis 1+ 10/14/17 0200: Anion Gap 6, Estimated GFR > 60, Glucose 68, Calcium 7.3 L, Phosphorus 3.7, Magnesium 1.8, Total Bilirubin 1.6 H, AST 158 H, ALT 61 H, Albumin 1.7 L, CBC w Diff MAN DIFF ORDERED, RBC 3.71 L, MCV 74.8 L, MCH 24.2 L, MCHC 32.3 L , RDW 24.1 H, MPV 7.6, Gran % 88.7 H, Lymphocytes % 7.4 L, Monocytes % 3.6, Eosinophils % 0.2, Basophils % 0.1, Absolute Granulocytes 9.3 H, Segmented Neutrophils 83 H, Absolute Lymphocytes 0.8 L, Lymphocytes 11 L, Monocytes 5, Absolute Monocytes 0.4, Eosinophils 1, Absolute Eosinophils 0, Absolute Basophils 0, Platelet Estimate ADEQUATE, Polychromasia 1+, Hypochromic- Microcytic 1+, Poikilocytosis 1+, Anisocytosis 1+, Microcytic Cells 1+, Target Cells FEW, Ovalocytes 1+, Elliptocytes FEW, Fld Total RBCs Counted 100 Vital Signs Date Time Temp Pulse Resp B/P B/P Pulse O2 O2 Flow FiO2 Mean Ox Delivery Rate 10/16 0658 97.5 90 18 120/60 97 Nasal 2.0L Cannula 10/16 0000 Nasal 2.0L Cannula 10/15 2258 97.4 91 20 120/56 97 Nasal 2.0L Cannula 10/15 1705 97.4 96 20 142/60 95 Nasal 2.0L Cannula 10/15 1600 97.5 90 18 142/68 98 Nasal 2.0L Cannula 10/15 1318 97 Nasal 2.0L Cannula Intake & Output 10/16 1600 10/16 0800 10/16 0000 Intake Total 800 400 Output Total 550 600 Balance 250 -200 Intake, IV 800 400 Output, Other 500 400 Output, Stool 50 100 Output, Urine 100
[2017-10-16 14:39] VITALS: BP 118/52
[2017-10-16 22:45] VITALS: BP 152/80
[2017-10-17 06:36] VITALS: BP 140/72
--- NOTE | 2017-10-17 07:59 | PN- Housestaff ---
See Addendum Subjective Follow-up For: MRSA pneumonia, Klebsiella urinary tract infection, rectal cancer with metastasis, thrombocytopenia Subjective: No overnight events. Patient is tired this morning and reports some shortness of breath. No chest pain. She had some abdominal pain last night and has not been eating well. No other complaints. Review of Systems Constitutional: Reports: see HPI. EENTM: Reports: no symptoms. Cardiovascular: Reports: no symptoms. Respiratory: Reports: see HPI. Gastrointestinal: Reports: see HPI. Genitourinary: Reports: no symptoms. Musculoskeletal: Reports: no symptoms. Skin: Reports: no symptoms. Neurological/Psychological: Reports: no symptoms. Hematologic/Endocrine: Reports: no symptoms. Immunologic/Allergic: Reports: no symptoms. Objective Last 24 Hrs of Vital Signs/I&O Vital Signs Date Time Temp Pulse Resp B/P B/P Pulse O2 O2 Flow FiO2 Mean Ox Delivery Rate 10/17 0636 97.6 96 24 140/72 96 Nasal 2.0L Cannula 10/17 0000 Nasal 2.0L Cannula 10/16 2245 97.5 96 24 152/80 95 Nasal 2.0L Cannula 10/16 1439 98.8 78 18 118/52 97 10/16 0800 97 Nasal 2.0L Cannula Intake & Output 10/17 0800 10/17 0000 10/16 1600 Intake Total 725 682 2949 Output Total 8478 185 8409 Balance -1000 -375 2900 Intake, IV 254 398 4439 Intake, Oral 50 400 Output, Other 5944 574 5211 Output, Stool 300 100 Output, Urine 125 100 Physical Exam General Appearance: Alert, Oriented X3, Cooperative, No Acute Distress, weak appearing HEENT: Atraumatic Cardiovascular: Regular Rate, Normal S1, Normal S2 Lungs: mild crackles Abdomen: Normal Bowel Sounds, Soft, No Tenderness Extremities: 1+ pitting edema Current Medications: Current Medications Sig/Rose Start time Last Medication Dose Route Stop Time Status Admin Benzonatate 100 MG TID 10/09 2100 AC 10/16 PO 2019 Ceftazidime 1,000 MG Q12 10/16 1515 AC 10/16 IV 2018 Ceftazidime 1,000 MG Q12 10/12 0900 DC 10/15 IV 2136 Dextrose/Sodium 1,000 ML Q10H 10/15 2200 AC 10/17 Chloride IV 031 Enoxaparin Sodium 100 MG BID 10/13 2100 DC 10/16 RI 2019 Guaifenesin 10 ML Q6P PRN 10/09 2015 AC 10/10 PO 0524 Levothyroxine Sodium 12.5 MCG DAILY 10/14 0900 AC 10/16 IV 1013 Morphine Sulfate 2 MG Q4P PRN 10/12 1115 AC 10/17 IV 0613 Non-Formulary 0 SEE ADMIN CRITERIA 10/17 0730 UNVr Medication ANY Ondansetron HCl 4 MG Q8P PRN 10/06 1845 AC 10/12 IV 1147 Pantoprazole Sodium 40 MG DAILY 10/13 0900 AC 10/16 IV 1013 Polyethylene Glycol 17 GM DAILY PRN 10/08 1145 AC 10/10 PO 0856 Senna/Docusate Sodium 2 TAB DAILY PRN 10/11 09 10/15 PO 0951 Vancomycin HCl 1,500 MG DAILY 10/17 09 AC Dextrose/Water 250 ML IV Vancomycin HCl 1,500 MG DAILY 10/12 1400 DC 10/16 Dextrose/Water 250 ML IV 1040 Vitamin A/Vitamin D 1 BROWN BID 10/11 1300 10/16 [facility] 2017 Zinc Oxide 1 BROWN BID 10/11 1300 10/16 [place] [id number] Last 24 Hrs of Lab/Tha Results Last 24 Hrs of Labs/Mics: Laboratory Tests 10/16/17 1630: Fluid Creatinine 0.8 10/16/17 0811: Anion Gap 9, Estimated GFR > 60, BUN/Creatinine Ratio 23.8, CBC w Diff NO MAN DIFF REQ, RBC 3.82 L, MCV 75.6 L, MCH 24.2 L, MCHC 32.0 L, RDW 23.9 H, MPV 6.9 L, Gran % 89.7 H, Lymphocytes % 5.3 L, Monocytes % 4.9, Eosinophils % 0.1 , Basophils % 0, Absolute Granulocytes 12.3 H, Absolute Lymphocytes 0.7 L, Absolute Monocytes 0.7 H, Absolute Eosinophils 0, Absolute Basophils 0 Assessment/Plan Assessment: Ms Russo is a 76-year-old woman with PMHx of 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 Montoya), coronary artery disease status post stents, type 2 diabetes, hypothyroidism hyperlipidemia, hypertension who was brought to the hospital after she was found to have severe back pain and altered mental status and found to have had hypoglycemia to 22 mg/dl. She was initially admitted to general medicine and topically transferred to ICU for management of hypoglycemia and altered mental status and transferred back to the general medicine floor on 10/15/17. Problem list: 1. MRSA pneumonia 2. Klebsiella UTI 3. Stage IV rectal adenocarcinoma 4. Dysphagia 5. Hypoglycemia, resolved 6. Thrombocytopenia, likely heparin-induced 7. Abdominal wound 8. Low urine output #MRSA pneumonia: Sputum growing MRSA sensitive to trimethoprim sulfamethoxazole and clindamycin. Patient's respiratory status is stable on antibiotic therapy. No fevers recently, leukocytosis improving. -Continue oxygen -Continue vancomycin IV 1 g daily, day 6 -infectious disease consult #Klebsiella UTI: Patient growing Klebsiella in her urine sensitive to ciprofloxacin. Patient has very dark urine and low urine output, only 225 mL in the past 24 hours. -Continue to monitor -Continue ceftazidine day 6 #Stage IV rectal adenocarcinoma: Patient has very poor prognosis given metastatic disease. Palliative care has been consulted, family pursuing aggressive measures at this time. -Appreciate palliative care recommendations -Pain control -Goals of care discussion ongoing -PT consult #Dysphagia: Patient reported difficulty swallowing, concern for aspiration. -Swallow evaluation today #Hypoglycemia: Patient presented with very low blood sugar level. This is improved with treatment. -Appreciate endocrinology recommendations -Accu-Cheks 3 times a day before meals and at bedtime #Thrombocytopenia, likely heparin-induced: Patient had an initial drop in platelets while on heparin. His workup was negative however. She was restarted on enoxaparin and her platelets again declined. Hematology is recommending to avoid heparin at this time. Platelets this morning are 25. She may need transfer back to the ICU. -No heparin -Argatroban drip for DVT - talk to hematology about this -Appreciate hematology recommendations #Abdominal wound: The patient has a bag on her abdomen that is draining ascitic fluid from a chronic abdominal wound. This puts her at risk for infection. We will talk to Dr. Montoya about further management of this. -Appreciate colorectal surgery recommendations -Appreciate ID recommendations #Chronic medical problems: -Continue other home medications DVT prophylaxis with argatroban Nothing by mouth pending swallow evaluation Full code Problem List: 1. Metastatic disease Pain Ratin Pain Location: no Pain Goal: Remain pain free Pain Plan: see a/p Tomorrow's Labs & Rationales: cbc, bep
--- NOTE | 2017-10-17 08:14 | PN- Oncology ---
Subjective Subjective: She still feels about the same. She still has sore throat and difficulty breathing. She has some abdominal pain. She has no fever or chills. Review of Systems: Constitutional: Denies: chills, fever. HEENT: Reports: sore throat Cardiovascular: Denies: chest pain. Respiratory: Reports: short of breath. cough. Gastrointestinal: Reports: abdominal pain (suprapubic). Neurological/Psychological: Reports: confusion. All Other Systems: Reviewed and Negative Objective Vital Signs and I&Os Vital Signs Date Time Temp Pulse Resp B/P B/P Pulse O2 O2 Flow FiO2 Mean Ox Delivery Rate 10/17 0636 97.6 96 24 140/72 96 Nasal 2.0L Cannula 10/17 0000 Nasal 2.0L Cannula 10/16 2245 97.5 96 24 152/80 95 Nasal 2.0L Cannula 10/16 1439 98.8 78 18 118/52 97 Intake & Output 10/17 1600 10/17 0800 10/17 0000 10/16 1600 10/16 0800 10/16 0000 Intake Total 697 771 7481 800 400 Output Total 8690 528 9430 550 600 Balance -1000 -375 2900 250 -200 Intake, IV 700 988 6900 800 400 Intake, Oral 50 400 Output, Other 2781 713 1000 500 400 Output, Stool 300 100 50 100 Output, Urine 125 100 100 Physical Exam: General Appearance: alert, awake, mild distress, obese, somnolent Head: atraumatic Eyes: Bilateral: PERRL. Ears, Nose, Throat: normal pharynx, dry blood in nares Respiratory: rhonchi, quiet respiration, tachypnea Cardiovascular: tachycardia, no murmurs Gastrointestinal: normal bowel sounds, tenderness, LLQ colostomy in place, stoma pink : edwards in place. Dark urine. Extremities: upper and lower extremity edema 3+ throughout Neurologic/Psych: awake, alert, oriented, slow to answer questions. Current Medications: Current Medications Sig/Rose Start time Last Medication Dose Route Stop Time Status Admin Benzonatate 100 MG TID 10/09 2100 AC 10/16 PO 2019 Ceftazidime 1,000 MG Q12 10/16 1515 AC 10/16 IV 2018 Ceftazidime 1,000 MG Q12 10/12 0900 DC 10/15 IV 2136 Dextrose/Sodium 1,000 ML Q10H 10/15 2200 AC 10/17 Chloride IV 0314 Enoxaparin Sodium 100 MG BID 10/13 2100 DC 10/16 [place] 2019 Guaifenesin 10 ML Q6P PRN 10/09 2015 AC 10/10 PO 0524 Levothyroxine Sodium 12.5 MCG DAILY 10/14 0900 AC 10/16 IV 1013 Morphine Sulfate 2 MG Q4P PRN 10/12 1115 AC 10/17 IV 0613 Non-Formulary 0 SEE ADMIN CRITERIA 10/17 0730 UNVr Medication ANY Ondansetron HCl 4 MG Q8P PRN 10/06 1845 AC 10/12 IV 1147 Pantoprazole Sodium 40 MG DAILY 10/13 0900 10/16 IV 1013 Polyethylene Glycol 17 GM DAILY PRN 10/08 1145 AC 10/10 PO 0856 Senna/Docusate Sodium 2 TAB DAILY PRN 10/11 0900 10/15 PO 0951 Vancomycin HCl 1,500 MG DAILY 10/17 0900 AC Dextrose/Water 250 ML IV Vancomycin HCl 1,500 MG DAILY 10/12 1400 DC 10/16 Dextrose/Water 250 ML IV 1040 Vitamin A/Vitamin D 1 BROWN BID 10/11 1300 10/16 [facility] 2018 Zinc Oxide 1 BROWN BID 10/11 1300 10/16 TOP 2018 Results Last 24 Hours of Lab Results: Laboratory Tests 10/16 10/16 1630 0811 Chemistry Sodium (137 - 145 mmol/L) 142 Potassium (3.5 - 5.1 mmol/L) 4.0 Chloride (98 - 107 mmol/L) 112 H Carbon Dioxide (22 - 30 mmol/L) 21 L Anion Gap (5 - 16) 9 BUN (7 - 17 mg/dL) 19 H Creatinine (0.5 - 1.0 mg/dL) 0.8 Estimated GFR (>60 ml/min) > 60 BUN/Creatinine Ratio (7 - 25 %) 23.8 Hematology CBC w Diff NO MAN DIFF REQ WBC (4.8 - 10.8 /CUMM) 13.7 H RBC (4.20 - 5.40 /CUMM) 3.82 L Hgb (12.0 - 16.0 G/DL) 9.2 L Hct (37 - 47 %) 28.9 L MCV (81.0 - 99.0 FL) 75.6 L MCH (27.0 - 31.0 PG) 24.2 L MCHC (33.0 - 37.0 G/DL) 32.0 L RDW (11.5 - 14.5 %) 23.9 H Plt Count (130 - 400 /CUMM) 64 L MPV (7.4 - 10.4 FL) 6.9 L Gran % (42.2 - 75.2 %) 89.7 H Lymphocytes % (20.5 - 51.1 %) 5.3 L Monocytes % (1.7 - 9.3 %) 4.9 Eosinophils % (0 - 5 %) 0.1 Basophils % (0.0 - 2.0 %) 0 Absolute Granulocytes (1.4 - 6.5 /CUMM) 12.3 H Absolute Lymphocytes (1.2 - 3.4 /CUMM) 0.7 L Absolute Monocytes (0.10 - 0.60 /CUMM) 0.7 H Absolute Eosinophils (0.0 - 0.7 /CUMM) 0 Absolute Basophils (0.0 - 0.2 /CUMM) 0 Other Body Source Fluid Creatinine (mg/dL) 0.8 Assessment/Plan Assessment/Recommendations: Ms. 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 She was seen in radiation oncology office and was noted to be in severe pain. She was sent to [facility] for evaluation. On admission, she was noted to be somnolent and hypoglycemic. She was started on the 10% dextrose drip in addition to octreotide. Endocrinology was consulted. This has improved. She is thrombocytopenic once again. She is back on enoxaparin. Previous HIT and IVAN were negative. 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 It would be best to avoid heparin production. Due to decrease oral intake, she was not able to take rivaroxaban. She should be placed back on argatroban drip or fondaparinux for probably HIT and RUE DVT. She will need to normalize her platelet prior to switching back to oral. Sepsis seems to be improving a little. She is on vancomycin and ceftazidime. Blood culture has been negative. Klebsiella is noted in the urine. Overall, prognosis is poor. PS has not improved much with antibiotics. She is not a candidate for systemic therapy. I discussed with the patient regarding DNR/DNI and possible hospice. She has not decided on this at the moment. I have spoken to the patient about the disease and that she is not a condidate for therapy. I would recommend against intubation and resuscitation given her overall prognosis with regard to her widely metastatic malignancy and poor PS. Thrombocytopenia: -discontinue all heparin product -monitor closely Sepsis: -continue current antibiotics RUE DVT: -start argatroban drip of fondaparinux Metastatic rectal cancer: -f/u outpatient -worsening PS, candidate for hospice if family and patient amendable Please call [phone] with any questions or concerns. Problem List: 1. Multiple lesions of metastatic malignancy 2. Pneumonia 3. UTI (urinary tract infection) 4. DVT (deep venous thrombosis) 5. Thrombocytopenia 6. Colostomy in place 7. Rectal carcinoma
[2017-10-17 09:11] LABS: ABSOLUTE BASOPHIL COUNT 0 /CUMM (0.0-0.2); ABSOLUTE EOSINOPHIL COUNT 0 /CUMM (0.0-0.7); ABSOLUTE GRANULOCYTE CT 11.2 /CUMM (1.4-6.5); ABSOLUTE LYMPH COUNT 1.2 /CUMM (1.2-3.4); ABSOLUTE MONOCYTE COUNT 1.1 /CUMM (0.10-0.60); BASOPHIL % 0 % (0.0-2.0); EOSINOPHIL % 0.2 % (0-5); HEMATOCRIT 28.7 % (37-47); MEAN CORPUSCULAR HGB 24.2 PG (27.0-31.0); MEAN CORPUSCULAR HGB CONC 31.5 G/DL (33.0-37.0); MEAN CORPUSCULAR VOLUME 76.7 FL (81.0-99.0); MEAN PLATELET VOLUME 10.1 FL (7.4-10.4); RBC DISTRIBUTION WIDTH 23.4 % (11.5-14.5); RED BLOOD CELL CT 3.74 /CUMM (4.20-5.40); WHITE BLOOD CELL COUNT 13.5 /CUMM (4.8-10.8)
[2017-10-17 10:29] LABS: PLATELET COUNT 25 /CUMM (130-400)
[2017-10-17 11:11] LABS: PT 26.8 SEC (9.4-12.5)
[2017-10-17 12:02] LABS: PTT 66 SEC (25-37)
--- NOTE | 2017-10-17 13:03 | PN- Diabetes ---
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 She came into the hospital with change in mental status and evidence of hypoglycemia most likely due to sulphonylurea. She received octreotide. She has been off on all antidiabetic medications. Currently, she has sepsis of urinary origin and MRSA pneumonia. Patient is receiving D5 1/2 NS at 100 ml/hour and her FSGs were 202, 174, 202, 206, 213, 196, 198 and 195. Plan: agree with discontinue of her IVF; continue monitoring her FSGs. will follow. Subjective Subjective: She appears lethargic and pale. Objective Last 24 Hrs of Vital Signs/I&O Vital Signs Date Time Temp Pulse Resp B/P B/P Pulse O2 O2 Flow FiO2 Mean Ox Delivery Rate 10/17 0800 Nasal 2.0L Cannula 10/17 0636 97.6 96 24 140/72 96 Nasal 2.0L Cannula 10/17 0000 Nasal 2.0L Cannula 10/16 2245 97.5 96 24 152/80 95 Nasal 2.0L Cannula 10/16 1439 98.8 78 18 118/52 97 Intake & Output 10/17 1600 10/17 0800 10/17 0000 Intake Total 800 450 Output Total 1800 825 Balance -1000 -375 Intake, IV 800 400 Intake, Oral 50 Output, Other 1500 600 Output, Stool 300 100 Output, Urine 125 Findings Pertinent Lab/Tha Results: Laboratory Tests 10/17 10/17 10/16 1050 0811 1630 Coagulation PT (9.4 - 12.5 SEC) 26.8 H INR (0.90 - 1.19) 2.44 H APTT (25 - 37 SEC) 66 H Hematology CBC w Diff MAN DIFF ORDERED WBC (4.8 - 10.8 /CUMM) 13.5 H RBC (4.20 - 5.40 /CUMM) 3.74 L Hgb (12.0 - 16.0 G/DL) 9.1 L Hct (37 - 47 %) 28.7 L MCV (81.0 - 99.0 FL) 76.7 L MCH (27.0 - 31.0 PG) 24.2 L MCHC (33.0 - 37.0 G/DL) 31.5 L RDW (11.5 - 14.5 %) 23.4 H Plt Count (130 - 400 /CUMM) 25 *L MPV (7.4 - 10.4 FL) 10.1 Gran % (42.2 - 75.2 %) 83.0 H Lymphocytes % (20.5 - 51.1 %) 8.9 L Monocytes % (1.7 - 9.3 %) 7.9 Eosinophils % (0 - 5 %) 0.2 Basophils % (0.0 - 2.0 %) 0 Absolute Granulocytes (1.4 - 6.5 /CUMM) 11.2 H Absolute Lymphocytes (1.2 - 3.4 /CUMM) 1.2 Absolute Monocytes (0.10 - 0.60 /CUMM) 1.1 H Absolute Eosinophils (0.0 - 0.7 /CUMM) 0 Absolute Basophils (0.0 - 0.2 /CUMM) 0 Platelet Estimate (ADEQUATE) DECREASED Polychromasia 1+ Hypochromic-Microcytic 1+ Poikilocytosis 1+ Anisocytosis 1+ Microcytic Cells 1+ Target Cells Ovalocytes 1+ Other Body Source Fluid Creatinine (mg/dL) 0.8
[2017-10-17 13:30] VITALS: BP 134/64
--- NOTE | 2017-10-17 13:36 | Event Note ---
Event Note Event Note: Sofya was transferred back to ICU around 1:35 PM for argatroban drip and for concerns of low platelet. Patient is stable with no evidence of bleeding. Her vital signs are stable temperature 97.6, pulse 96, respiratory rate 24, blood pressure 140/72 and she is saturating 96% on 2 L nasal cannula. Events above noted and discussed with Dr. Mueller. Patient back in ICU at present. Will have further discussions with family regarding code status.
--- NOTE | 2017-10-17 15:56 | Cons- Infect Disease ---
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 On admission she was afebrile. Laboratory data revealed a white blood cell count of 17.5, platelets 88,000, glucose 22, BUN creatinine 22 and 0.7, alkaline phosphatase 2012, AST/ALT 501 and 92, INR 1.55. Chest x-ray revealed stable nodules throughout the right and left lung compatible with her history of pulmonary metastatic disease. CT of the head was negative for any acute process. She was initially admitted to the floor, treated with IV dextrose and morphine, but was then moved to the ICU for closer monitoring. A Doppler of the right upper extremity was positive for DVT and she was begun on Argatroban, which was discontinued on October 10. She was relatively stable until October 11 when she became dyspneic, with a cough and congestion, requiring an increase from 2 to 4 L of oxygen and she was begun empirically on Vancomycin and Ceftazidime. A repeat CT of the chest, abdomen and pelvis was unchanged. She has remained afebrile and her white blood cell count has remained elevated, though it did decrease somewhat. Her sputum did grow MRSA and her urine culture grew Klebsiella, and she has been continued on Vancomycin and Ceftazidime. She was moved out of the ICU yesterday but was moved back in today because of worsening thrombocytopenia and she has been restarted on Argatroban. Presently she does not report any shortness of breath and states her pain is well controlled. Allergies/Medications Allergies: Coded Allergies: heparin (Severe, Thrombocytopenia 10/17/17) shellfish derived (Intermediate, G.I. DISTRESS FROM SCALLOPS 09/14/17) Home Med List: Atorvastatin Calcium 40 MG TABLET 1 TAB PO DAILY CHOLESTROL (Reported) Glimepiride 4 MG TABLET 1 TAB PO DAILY DM (Reported) Levothyroxine Sodium 25 MCG TABLET 1 TAB PO DAILY THYROID (Reported) Multivitamin (Daily Multiple Vitamin) 1 EACH TABLET 1 TAB PO DAILY VITAMIN SUPPORT (Reported) Oxycodone HCl/Acetaminophen (Percocet 5-325 MG Tablet) 5 MG-325 MG TABLET 1-2 TAB PO Q4-6 PRN PAIN Quinapril HCl 20 MG TABLET 1 TAB PO DAILY HTN (Reported) Sitagliptin Phos/Metformin HCl (Janumet 50-1,000 MG Tablet) 50 MG-1,000 MG TABLET 1 TAB PO BID DM (Reported) Past History Travel History Traveled to [place] past 21 day No Medical History Neurological: NONE EENT: NONE Cardiovascular: CAD (s/p stents), hypertension, hyperlipidemia, HEART MURMUR Respiratory: NONE Gastrointestinal: COLORECTAL CANCER Hepatic: mets to liver/lung Renal: nephrolithiasis Musculoskeletal: NONE Psychiatric: NONE Endocrine: diabetes, hypothyroidism, obesity Blood Disorders: NONE Cancer(s): colon/rectal cancer EQUITY RESEARCH ANALYST/Reproductive: NONE History of MRSA: Yes History of VRE: No History of CDIFF: No Isolation History: Contact Surgical History Surgical History: non-contributory Family History Relations & Conditions If Any: FATHER FH: heart disease MOTHER FH: cancer of digestive organ BROTHER FH: heart attack SISTER FHx: lung cancer BROTHER Psychosocial History Where Do You Live? Retirement Facility Who Do You Live With? self Primary Language: Cypriot Smoking Status: Former Smoker ETOH Use: denies use Living Will? unknown Power of Subsurface Augmentee Operator/HCP? unknown Functional Ability ADLs Needs Assist: dressing, eating, toileting, bathing. IADLs Needs Assist: shopping, housework, finances, food prep, telephone, transportation, medication admin. Employment History Employment: Retired Review of Systems Review of Systems All Other Systems: Reviewed and Negative Exam & Diagnostic Data Last 24 Hrs of Vital Signs/I&O Vital Signs Date Time Temp Pulse Resp B/P B/P Pulse O2 O2 Flow FiO2 Mean Ox Delivery Rate 10/17 1330 97.1 90 16 134/64 98 Nasal 2.0L Cannula 10/17 0800 Nasal 2.0L Cannula 10/17 0636 97.6 96 24 140/72 96 Nasal 2.0L Cannula 10/17 0000 Nasal 2.0L Cannula 10/16 2245 97.5 96 24 152/80 95 Nasal 2.0L Cannula Intake & Output 10/17 1600 10/17 0800 10/17 0000 Intake Total 250 800 450 Output Total 1250 1800 825 Balance -1000 -1000 -375 Intake, IV 250 800 400 Intake, Oral 50 Output, Other 1000 1500 600 Output, Stool 100 300 100 Output, Urine 150 125 Physical Exam Other Physical Findings: She is lethargic and weak appearing, but arousable in no acute distress. She is afebrile. Skin pallor. HEENT exam is negative. Neck is supple with no adenopathy. Lungs scattered rhonchi bilaterally. Heart regular rhythm with no murmur. Abdomen is soft, nontender with positive bowel sounds. Back no CVA tenderness. Extremities 2-3+ edema both lower extremity. Neuro is without focality. Blake catheter in place with dark urine. Last 24 Hours of Lab Results: Laboratory Tests 10/17 10/17 10/16 1050 0811 1630 Coagulation PT (9.4 - 12.5 SEC) 26.8 H INR (0.90 - 1.19) 2.44 H APTT (25 - 37 SEC) 66 H Hematology CBC w Diff MAN DIFF ORDERED WBC (4.8 - 10.8 /CUMM) 13.5 H RBC (4.20 - 5.40 /CUMM) 3.74 L Hgb (12.0 - 16.0 G/DL) 9.1 L Hct (37 - 47 %) 28.7 L MCV (81.0 - 99.0 FL) 76.7 L MCH (27.0 - 31.0 PG) 24.2 L MCHC (33.0 - 37.0 G/DL) 31.5 L RDW (11.5 - 14.5 %) 23.4 H Plt Count (130 - 400 /CUMM) 25 *L MPV (7.4 - 10.4 FL) 10.1 Gran % (42.2 - 75.2 %) 83.0 H Lymphocytes % (20.5 - 51.1 %) 8.9 L Monocytes % (1.7 - 9.3 %) 7.9 Eosinophils % (0 - 5 %) 0.2 Basophils % (0.0 - 2.0 %) 0 Absolute Granulocytes (1.4 - 6.5 /CUMM) 11.2 H Absolute Lymphocytes (1.2 - 3.4 /CUMM) 1.2 Absolute Monocytes (0.10 - 0.60 /CUMM) 1.1 H Absolute Eosinophils (0.0 - 0.7 /CUMM) 0 Absolute Basophils (0.0 - 0.2 /CUMM) 0 Platelet Estimate (ADEQUATE) DECREASED Polychromasia 1+ Hypochromic-Microcytic 1+ Poikilocytosis 1+ Anisocytosis 1+ Microcytic Cells 1+ Target Cells Ovalocytes 1+ Other Body Source Fluid Creatinine (mg/dL) 0.8 Last 24 Hours of Tha Results: Blood cultures 2 October 11 negative Sputum culture October 11 positive for MRSA Urine culture October 11 greater than 100,000 colonies of Klebsiella resistant to Ampicillin Diagnostic Data Recent Imaging Findings: Chest x-ray October 06 revealed stable nodules throughout the right and left lung compatible with her history of pulmonary metastatic disease. CT of the head October 06 negative for any acute process. Dopplers of both upper extremities October 07 revealed an occlusive thrombus involving the right basilic and right cephalic veins Dopplers of both lower extremities October [address] of the chest, abdomen and pelvis October 07 reveals a rectal mass with perirectal lymph nodes; no change in the bilateral pulmonary nodules consistent with metastatic disease; increased prominence of the diffuse hepatic masses consistent with metastatic disease, with an increase in the small volume ascites MRI of the lumbar spine October 07 negative for any evidence of spinal metastatic disease Chest x-ray October 11 reveals multiple pulmonary nodules CT of the chest, abdomen and pelvis October 11 revealed no pulmonary emboli; widespread pulmonary hepatic metastases and rectal mass Assessment/Plan Assessment/Plan Impression: This is a 77-year-old woman, recently diagnosed with poorly differentiated adenocarcinoma of the rectum, 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, status post diverting colostomy 10 days prior to admission, admitted on October 06 with intractable rectal pain, found initially to be afebrile with hypoglycemia, leukocytosis, thrombocytopenia and markedly elevated liver enzymes, found to have a right upper extremity DVT, treated for several days with Argatroban, with the development of increased dyspnea 5 days after admission, found to have a positive sputum culture for MRSA and a positive urine culture for Klebsiella, now on broad-spectrum antibiotics for the past 6 days, with progressive weakness , a persistent leukocytosis and worsening thrombocytopenia. Her overall status is quite poor and, given the progressive deterioration and the fact that she is not a candidate for any treatment for her metastatic disease, feel that hospice should be pursued. She is being followed by Oncology and Palliative care who have discussed this with the patient and family. With regard to her positive cultures, it is not clear that she has responded in any significant way to the antibiotics, though her white blood cell count has decreased slightly and her bandemia has resolved. Her chest x-ray and CT scan did not reveal any new consolidation; therefore the MRSA in her sputum may represent colonization or perhaps a bronchitis. The positive urine culture may also represent colonization or asymptomatic bacteriuria, as it is not clear she had any urinary symptoms. Her thrombocytopenia may be multifactorial, with medications and infection both possibly contributing. Suggestion: 1. Would pursue comfort measures 2. Can continue Vancomycin and Ceftazidime pending above but, in any event, would consider discontinuation in the a.m. after having received a 1 week course of each antibiotic Consult Acknowledgment - Thank you for your consult request.
[2017-10-17 16:00] VITALS: BP 132/70
[2017-10-17 18:42] LABS: ABSOLUTE BASOPHIL COUNT 0 /CUMM (0.0-0.2); ABSOLUTE EOSINOPHIL COUNT 0.1 /CUMM (0.0-0.7); ABSOLUTE GRANULOCYTE CT 10.2 /CUMM (1.4-6.5); ABSOLUTE LYMPH COUNT 1.2 /CUMM (1.2-3.4); ABSOLUTE MONOCYTE COUNT 0.6 /CUMM (0.10-0.60); BASOPHIL % 0.1 % (0.0-2.0); EOSINOPHIL % 0.7 % (0-5); HEMATOCRIT 30.3 % (37-47); MEAN CORPUSCULAR HGB 24.4 PG (27.0-31.0); MEAN CORPUSCULAR HGB CONC 31.5 G/DL (33.0-37.0); MEAN CORPUSCULAR VOLUME 77.6 FL (81.0-99.0); MEAN PLATELET VOLUME 10.5 FL (7.4-10.4); RBC DISTRIBUTION WIDTH 24.1 % (11.5-14.5); WHITE BLOOD CELL COUNT 12.1 /CUMM (4.8-10.8)
[2017-10-17 19:06] LABS: GRANULOCYTE % 84.3 % (42.2-75.2); PLATELET COUNT 28 /CUMM (130-400)
[2017-10-17 20:02] LABS: PTT > 120 SEC (25-37)
[2017-10-18] VITALS: BP 120/64
[2017-10-18 02:03] LABS: PTT > 120 SEC (25-37)
[2017-10-18 05:26] LABS: ABSOLUTE BASOPHIL COUNT 0 /CUMM (0.0-0.2); ABSOLUTE EOSINOPHIL COUNT 0 /CUMM (0.0-0.7); ABSOLUTE GRANULOCYTE CT 7.7 /CUMM (1.4-6.5); ABSOLUTE LYMPH COUNT 1.1 /CUMM (1.2-3.4); ABSOLUTE MONOCYTE COUNT 0.5 /CUMM (0.10-0.60); BASOPHIL % 0 % (0.0-2.0); EOSINOPHIL % 0.5 % (0-5); GRANULOCYTE % 82.2 % (42.2-75.2); HEMATOCRIT 27.2 % (37-47); MEAN CORPUSCULAR HGB 24.5 PG (27.0-31.0); MEAN CORPUSCULAR HGB CONC 31.8 G/DL (33.0-37.0); MEAN CORPUSCULAR VOLUME 76.9 FL (81.0-99.0); MEAN PLATELET VOLUME 9.8 FL (7.4-10.4); RBC DISTRIBUTION WIDTH 23.7 % (11.5-14.5); RED BLOOD CELL CT 3.54 /CUMM (4.20-5.40); WHITE BLOOD CELL COUNT 9.4 /CUMM (4.8-10.8)
[2017-10-18 05:30] LABS: PTT 99 SEC (25-37)
[2017-10-18 05:36] LABS: PLATELET COUNT 34 /CUMM (130-400)
--- NOTE | 2017-10-18 07:33 | PN- CRCU ---
Heather Mota 10/18/17 0733: Subjective HPI/Critical Care Issues: -Sepsis--- resolved(MRSA pneumonia, UTI) -HI T/HAT--- on argatroban drip -Thrombocytopenia -Hypoglycemia--- resolved -Right upper extremity venous thrombus in the setting of heparin induced thrombocytopenia and underlying malignancy -Metabolic encephalopathy -Metastatic rectal cancer with metastasis to liver and lung, was on palliative radiation currently on hold due to her poor functioning status to be transferred 24 hour events Patient was seen and examined this morning. She was lying comfortably on bed without any complaint of pain. She was alert and awake and able to participate in conversation. She still not taking anything by mouth given her lethargic status yesterday and we will request formal swallow evaluation today and will start her on diet. She was transferred back from [facility] floor due to concerns for dropping platelet 25 and argatroban drip along with hematuria. Her platelet count start increasing from 28-34 this morning. Except slight hematuria she did not have any active bleeding. I spoke with her daughter and my attending and we are arranging a family meeting at 3:30. I also left message for Dr. fuentes to attend meeting. We will address goals of care. Objective Current Medications: Current Medications Sig/Rose Start time Last Medication Dose Route Stop Time Status Admin Argatroban 250 MG Q24H 10/17 0930 AC 10/17 Sodium Chloride 250 ML IV 1420 Benzonatate 100 MG TID 10/09 2100 AC 10/16 PO 2019 Ceftazidime 1,000 MG Q12 10/16 1515 AC 10/18 IV 10/18 2300 0824 Dextrose/Sodium 1,000 ML Q13H 10/17 Chloride IV 10/18 2214 0931 Guaifenesin 10 ML Q6P PRN 10/09 PO 0524 Levothyroxine Sodium 12.5 MCG DAILY 10/14 0900 AC 10/18 IV 1039 Morphine Sulfate 2 MG Q4P PRN 10/12 1115 AC 10/17 IV 0613 Ondansetron HCl 4 MG Q8P PRN 10/06 1845 AC 10/12 IV 1147 Pantoprazole Sodium 40 MG DAILY 10/13 0900 AC 10/18 IV 0824 Polyethylene Glycol 17 GM DAILY PRN 10/08 1145 AC 10/10 PO 0856 Potassium Chloride 80 MEQ .STK-MED ONE 10/18 0215 DC PO 10/18 0216 Senna/Docusate Sodium 2 TAB DAILY PRN 10/11 0900 AC 10/15 PO 0951 Vancomycin HCl 1,500 MG DAILY 10/17 0900 DC 10/18 Dextrose/Water 250 ML IV 1039 Vitamin A/Vitamin D 1 BROWN BID 10/11 1300 AC 10/18 TOP 0825 Zinc Oxide 1 BROWN BID 10/11 1300 AC 10/18 TOP 0825 Vital Signs & I&O Last 24 Hrs of Vitals and I&O: Vital Signs Date Time Temp Pulse Resp B/P B/P Pulse O2 O2 Flow FiO2 Mean Ox Delivery Rate 10/18 0800 99 Nasal 2.0L Cannula 10/18 0800 96.8 72 16 114/70 99 Nasal 2.0L Cannula 10/18 0400 98 Nasal 2.0L Cannula 10/18 0000 99 Nasal 2.0L Cannula 10/18 0000 97.0 83 16 120/64 99 Nasal 2.0L Cannula 10/17 1600 98 Nasal 2.0L Cannula 10/17 1600 97.1 86 18 132/70 100 Nasal 2.0L Cannula 10/17 1330 97.1 90 16 134/64 98 Nasal 2.0L Cannula Intake & Output 10/18 1600 10/18 0800 10/18 0000 Intake Total 612 148 Output Total 381 550 Balance 231 -402 Intake, IV 612 148 Intake, Oral 0 Number 0 Bowel Movements Output, Other 275 300 Output, Stool 50 50 Output, Urine 56 200 Exam General Appearance: alert, awake, comfortable Head: atraumatic, normal appearance Ears, Nose, Throat: normal pharynx Neck: supple Respiratory: normal breath sounds, chest non-tender Cardiovascular: regular rate/rhythm, edema Abdomen: soft, colostomy bag in place with liquidy stool, and other back for ascitic fluid is in place no erythema or tenderness noted Skin: intact, normal color Results Last 24 Hrs of Lab Results: Laboratory Tests 10/18/17 0940: APTT 89 H 10/18/17 0600: Sodium Cancelled, Potassium Cancelled, Chloride Cancelled, Carbon Dioxide Cancelled, Anion Gap Cancelled, BUN Cancelled, Creatinine Cancelled, BUN/ Creatinine Ratio Cancelled, CBC w Diff Cancelled, WBC Cancelled, RBC Cancelled, Hgb Cancelled, Hct Cancelled, MCV Cancelled, MCH Cancelled, MCHC Cancelled, RDW Cancelled, Plt Count Cancelled, MPV Cancelled 10/18/17 0500: Anion Gap 9, Estimated GFR 48 L, Glucose 190 H, Calcium 7.5 L, Phosphorus 2.7 , Magnesium 1.6, Total Bilirubin 1.6 H, AST 73 H, ALT 44, Albumin 1.6 L, APTT 99 H, CBC w Diff NO MAN DIFF REQ, RBC 3.54 L, MCV 76.9 L, MCH 24.5 L, MCHC 31.8 L, RDW 23.7 H, MPV 9.8, Gran % 82.2 H, Lymphocytes % 12.2 L, Monocytes % 5.1, Eosinophils % 0.5, Basophils % 0, Absolute Granulocytes 7.7 H, Absolute Lymphocytes 1.1 L, Absolute Monocytes 0.5, Absolute Eosinophils 0, Absolute Basophils 0 10/17/17 2345: APTT > 120 *H 10/17/17 1815: Urinalysis LIGHT H, Urine Color BLDY H, Urine Clarity CLDY H, Urine pH 6.5, Ur Specific [place] 1.025, Urine Protein >=300 H, Urine Ketones TRACE H, Urine Nitrite POS H, Urine Bilirubin NEG@ICTO, Urine Urobilinogen 1.0, Ur Leukocyte Esterase MOD H, Ur Microscopic SEDIMENT EXAMINED, Urine RBC PACKD H, Urine WBC 5-10 H, Urine Bacteria MOD H, Granular Casts 1-3 H, Micro UA Comment MORE INFO: H, Urine Hemoglobin LARGE H, Urine Glucose NEG 10/17/17 1745: APTT > 120 *H, CBC w Diff NO MAN DIFF REQ, RBC 3.90 L, MCV 77.6 L, MCH 24.4 L , MCHC 31.5 L, RDW 24.1 H, MPV 10.5 H, Gran % 84.3 H, Lymphocytes % 9.9 L, Monocytes % 5.0, Eosinophils % 0.7, Basophils % 0.1, Absolute Granulocytes 10.2 H, Absolute Lymphocytes 1.2, Absolute Monocytes 0.6, Absolute Eosinophils 0.1, Absolute Basophils 0 10/17/17 1737: Ur Random Creatinine 110.4, U Random Total Protein 361 H, Protein/Creatinin Ratio 3.2 H Impression/Plan Impression/Plan Impression/Plan: Ms Russo is a 76-year-old woman with PMHx of 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 Montoya), coronary artery disease status post stents, type 2 diabetes, hypothyroidism hyperlipidemia, hypertension who was brought to the hospital after she was found to have severe back pain and altered mental status and found to have had hypoglycemia to 22 mg/dl. She was initially admitted to general medicine and topically transferred to ICU for management of hypoglycemia and altered mental status and transferred back to the general medicine floor on 10/15/17 but keep due to concerns of low platelet and requiring a Troponin drip was transferred back to ICU on October 18. Problem list: 1. MRSA pneumonia 2. Klebsiella UTI 3. Stage IV rectal adenocarcinoma 4. Dysphagia 5. Hypoglycemia, resolved 6. Thrombocytopenia, likely heparin-induced 7. Abdominal wound 8. Low urine output #MRSA pneumonia: Sputum growing MRSA sensitive to trimethoprim sulfamethoxazole and clindamycin. Patient's respiratory status is stable on antibiotic therapy. No fevers recently, leukocytosis improving. -Continue oxygen -We will discontinue her vancomycin after today's dose. She completed a course of 7 days. #Klebsiella UTI: Patient growing Klebsiella in her urine sensitive to ciprofloxacin. Patient has very dark urine and low urine output, urinalysis was done yesterday that showed packed RBCs with 5-10 WBCs. -She completed a course of ceftazidime for 7 days today and we will discontinue it after tonight's dose. #Stage IV rectal adenocarcinoma: Patient has very poor prognosis given metastatic disease. Palliative care has been consulted, family pursuing aggressive measures at this time. We are arranging a family meeting today and we will readdress her CODE STATUS. #Dysphagia: Patient reported difficulty swallowing, concern for aspiration. -Swallow evaluation today #Hypoglycemia: Patient presented with very low blood sugar level. This is improved with treatment. -Appreciate endocrinology recommendations -Accu-Cheks 3 times a day before meals and at bedtime #Thrombocytopenia, likely heparin-induced: Patient had an initial drop in platelets while on heparin. His workup was negative however. She was restarted on enoxaparin and her platelets again declined. Hematology is recommending to avoid heparin at this time. Platelets this morning are 34. She will go back to sit alto once her platelets came back in normal range. -No heparin or heparin products and future -Closer monitoring for any bleeding. Monitor platelet count daily-heme oncology: #Abdominal wound: The patient has a bag on her abdomen that is draining ascitic fluid from a chronic abdominal wound. This puts her at risk for infection. We will talk to Dr. Montoya about further management of this. -Appreciate colorectal surgery recommendations #Chronic medical problems: -Continue other home medications DVT prophylaxis with argatroban Nothing by mouth pending swallow evaluation Full code Code Status: Full Code Dennis Hunter MD 10/18/17 1236: Attending MD Review Statement Attending Statement Attending MD Statement: examined this patient, discuss w/resident/PA/PETROLEUM INSPECTOR, agreed w/resident/PA/PETROLEUM INSPECTOR, reviewed EMR data (avail), discussed w/nursing, discussed w/ case mgmt, amended to note Attending Assessment/Plan: The patient was transferred back to ICU on Argatroban drip for HAT. Platelet count improving. The patient refuses NG tube. Repeat swallow evaluation pending. Receiving last dose of Vanco/Ceftaz today. Some upper airway congestion on my exam today. Patient appears comfortable. Need to make decision regarding further XRT. Will arrange for meeting with daughter to discuss goals of care and code status this afternoon.
[2017-10-18 08:00] VITALS: BP 114/70
--- NOTE | 2017-10-18 08:00 | PN- Oncology ---
Subjective Subjective: She denies any new symptoms. Her throat is still sore. Breathing is about the same. She has no nausea or vomiting. She denies any new pain. Review of Systems: Constitutional: Denies: chills, fever. HEENT: Reports: sore throat Cardiovascular: Denies: chest pain. Respiratory: Reports: short of breath. cough. Gastrointestinal: Reports: abdominal pain (suprapubic). Neurological/Psychological: Reports: confusion. All Other Systems: Reviewed and Negative Objective Vital Signs and I&Os Vital Signs Date Time Temp Pulse Resp B/P B/P Pulse O2 O2 Flow FiO2 Mean Ox Delivery Rate 10/18 0400 98 Nasal 2.0L Cannula 10/18 0000 99 Nasal 2.0L Cannula 10/18 0000 97.0 83 16 120/64 99 Nasal 2.0L Cannula 10/17 1600 98 Nasal 2.0L Cannula 10/17 1600 97.1 86 18 132/70 100 Nasal 2.0L Cannula 10/17 1330 97.1 90 16 134/64 98 Nasal 2.0L Cannula 10/17 0800 Nasal 2.0L Cannula Intake & Output 10/18 0800 10/18 0000 10/17 1600 10/17 0800 10/17 0000 10/16 1600 Intake Total 612 148 250 038 331 9600 Output Total 020 841 6778 4508 455 1171 Balance 231 -402 -1000 -1000 -375 2900 Intake, IV 612 148 250 967 047 7165 Intake, Oral 0 50 400 Number 0 Bowel Movements Output, Other 810 014 7704 1619 748 2461 Output, Stool 50 50 100 300 100 Output, Urine 56 200 150 125 100 Physical Exam: General Appearance: alert, awake, mild distress, obese, somnolent Head: atraumatic Eyes: Bilateral: PERRL. Ears, Nose, Throat: normal pharynx, dry blood in nares Respiratory: rhonchi, quiet respiration, tachypnea Cardiovascular: tachycardia, no murmurs Gastrointestinal: normal bowel sounds, tenderness, LLQ colostomy in place, abdominal bag in place with clear and yellow fluid : edwards in place. Dark urine. Extremities: upper and lower extremity edema 3+ throughout Neurologic/Psych: awake, alert, oriented, slow to answer questions. Current Medications: Current Medications Sig/Rose Start time Last Medication Dose Route Stop Time Status Admin Argatroban 250 MG Q24H 10/17 0930 AC 10/17 Sodium Chloride 250 ML IV 1420 Benzonatate 100 MG TID 10/09 2100 AC 10/16 PO 2019 Ceftazidime 1,000 MG Q12 10/16 1515 10/17 IV 2121 Dextrose/Sodium 1,000 ML Q13H 10/17 2014 10/17 Chloride IV 10/18 2214 2024 Dextrose/Sodium 1,000 ML Q10H 10/15 2200 DC 10/17 Chloride IV 0314 Guaifenesin 10 ML Q6P PRN 10/09 2014 10/10 PO 0524 Levothyroxine Sodium 12.5 MCG DAILY 10/14 0900 10/17 IV 0915 Morphine Sulfate 2 MG Q4P PRN 10/12 1115 10/17 IV 0613 Non-Formulary 0 SEE ADMIN CRITERIA 10/17 09 CAN Medication ANY Non-Formulary 0 SEE ADMIN CRITERIA 10/17 0730 DC Medication ANY Ondansetron HCl 4 MG Q8P PRN 10/06 1845 10/12 IV 1147 Pantoprazole Sodium 40 MG DAILY 10/13 0900 10/17 IV 0915 Polyethylene Glycol 17 GM DAILY PRN 10/08 1145 10/10 PO 0856 Senna/Docusate Sodium 2 TAB DAILY PRN 10/11 0900 10/15 PO 0951 Vancomycin HCl 1,500 MG DAILY 10/17 0900 10/17 Dextrose/Water 250 ML IV 0915 Vitamin A/Vitamin D 1 BROWN BID 10/11 1300 10/17 TOP 2122 Zinc Oxide 1 BROWN BID 10/11 1300 10/17 TOP 212 Results Last 24 Hours of Lab Results: Laboratory Tests 10/18 10/18 10/17 0600 0500 2345 Chemistry Sodium (137 - 145 mmol/L) Cancelled 140 Potassium (3.5 - 5.1 mmol/L) Cancelled 4.3 Chloride (98 - 107 mmol/L) Cancelled 112 H Carbon Dioxide (22 - 30 mmol/L) Cancelled 19 L Anion Gap (5 - 16) Cancelled 9 BUN (7 - 17 mg/dL) Cancelled 25 H Creatinine (0.5 - 1.0 mg/dL) Cancelled 1.1 H Estimated GFR (>60 ml/min) 48 L BUN/Creatinine Ratio Cancelled Glucose (65 - 99 mg/dL) 190 H Calcium (8.4 - 10.2 mg/dL) 7.5 L Phosphorus (2.5 - 4.5 mg/dL) 2.7 Magnesium (1.6 - 2.3 mg/dL) 1.6 Total Bilirubin (0.2 - 1.3 mg/dL) 1.6 H AST (14 - 36 U/L) 73 H ALT (9 - 52 U/L) 44 Albumin (3.5 - 5.0 g/dL) 1.6 L Coagulation APTT (25 - 37 SEC) 99 H > 120 *H Hematology CBC w Diff Cancelled NO MAN DIFF REQ WBC (4.8 - 10.8 /CUMM) Cancelled 9.4 RBC (4.20 - 5.40 /CUMM) Cancelled 3.54 L Hgb (12.0 - 16.0 G/DL) Cancelled 8.6 L Hct (37 - 47 %) Cancelled 27.2 L MCV (81.0 - 99.0 FL) Cancelled 76.9 L MCH (27.0 - 31.0 PG) Cancelled 24.5 L MCHC (33.0 - 37.0 G/DL) Cancelled 31.8 L RDW (11.5 - 14.5 %) Cancelled 23.7 H Plt Count (130 - 400 /CUMM) Cancelled 34 L MPV (7.4 - 10.4 FL) Cancelled 9.8 Gran % (42.2 - 75.2 %) 82.2 H Lymphocytes % (20.5 - 51.1 %) 12.2 L Monocytes % (1.7 - 9.3 %) 5.1 Eosinophils % (0 - 5 %) 0.5 Basophils % (0.0 - 2.0 %) 0 Absolute Granulocytes (1.4 - 6.5 /CUMM) 7.7 H Absolute Lymphocytes (1.2 - 3.4 /CUMM) 1.1 L Absolute Monocytes (0.10 - 0.60 /CUMM) 0.5 Absolute Eosinophils (0.0 - 0.7 /CUMM) 0 Absolute Basophils (0.0 - 0.2 /CUMM) 0 10/17 10/17 1815 1745 Coagulation APTT (25 - 37 SEC) > 120 *H Hematology CBC w Diff NO MAN DIFF REQ WBC (4.8 - 10.8 /CUMM) 12.1 H RBC (4.20 - 5.40 /CUMM) 3.90 L Hgb (12.0 - 16.0 G/DL) 9.5 L Hct (37 - 47 %) 30.3 L MCV (81.0 - 99.0 FL) 77.6 L MCH (27.0 - 31.0 PG) 24.4 L MCHC (33.0 - 37.0 G/DL) 31.5 L RDW (11.5 - 14.5 %) 24.1 H Plt Count (130 - 400 /CUMM) 28 *L MPV (7.4 - 10.4 FL) 10.5 H Gran % (42.2 - 75.2 %) 84.3 H Lymphocytes % (20.5 - 51.1 %) 9.9 L Monocytes % (1.7 - 9.3 %) 5.0 Eosinophils % (0 - 5 %) 0.7 Basophils % (0.0 - 2.0 %) 0.1 Absolute Granulocytes (1.4 - 6.5 /CUMM) 10.2 H Absolute Lymphocytes (1.2 - 3.4 /CUMM) 1.2 Absolute Monocytes (0.10 - 0.60 /CUMM) 0.6 Absolute Eosinophils (0.0 - 0.7 /CUMM) 0.1 Absolute Basophils (0.0 - 0.2 /CUMM) 0 Urines Urinalysis LIGHT H Urine Color (YEL,AMB,STR) BLDY H Urine Clarity (CLEAR) CLDY H Urine pH (5.0 - 8.0) 6.5 Ur Specific [place] (1.001 - 1.035) 1.025 Urine Protein (NEG,<30 MG/DL) >=300 H Urine Ketones (NEG) TRACE H Urine Nitrite (NEG) POS H Urine Bilirubin (NEG) NEG@ICTO Urine Urobilinogen (0.1 - 1.0 EU/dl) 1.0 Ur Leukocyte Esterase (NEG) MOD H Ur Microscopic SEDIMENT EXAMINED Urine RBC (0 - 5 /HPF) PACKD H Urine WBC (0 - 2 /HPF) 5-10 H Urine Bacteria (NEG/NONE) MOD H Granular Casts (NONE /LPF) 1-3 H Micro UA Comment MORE INFO: H Urine Hemoglobin (NEG) LARGE H Urine Glucose (N MG/DL) NEG 10/17 10/17 1050 0811 Coagulation PT (9.4 - 12.5 SEC) 26.8 H INR (0.90 - 1.19) 2.44 H APTT (25 - 37 SEC) 66 H Hematology CBC w Diff MAN DIFF ORDERED WBC (4.8 - 10.8 /CUMM) 13.5 H RBC (4.20 - 5.40 /CUMM) 3.74 L Hgb (12.0 - 16.0 G/DL) 9.1 L Hct (37 - 47 %) 28.7 L MCV (81.0 - 99.0 FL) 76.7 L MCH (27.0 - 31.0 PG) 24.2 L MCHC (33.0 - 37.0 G/DL) 31.5 L RDW (11.5 - 14.5 %) 23.4 H Plt Count (130 - 400 /CUMM) 25 *L MPV (7.4 - 10.4 FL) 10.1 Gran % (42.2 - 75.2 %) 83.0 H Lymphocytes % (20.5 - 51.1 %) 8.9 L Monocytes % (1.7 - 9.3 %) 7.9 Eosinophils % (0 - 5 %) 0.2 Basophils % (0.0 - 2.0 %) 0 Absolute Granulocytes (1.4 - 6.5 /CUMM) 11.2 H Absolute Lymphocytes (1.2 - 3.4 /CUMM) 1.2 Absolute Monocytes (0.10 - 0.60 /CUMM) 1.1 H Absolute Eosinophils (0.0 - 0.7 /CUMM) 0 Absolute Basophils (0.0 - 0.2 /CUMM) 0 Platelet Estimate (ADEQUATE) DECREASED Polychromasia 1+ Hypochromic-Microcytic 1+ Poikilocytosis 1+ Anisocytosis 1+ Microcytic Cells 1+ Target Cells Ovalocytes 1+ Assessment/Plan Assessment/Recommendations: Ms. 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 She was seen in radiation oncology office and was noted to be in severe pain. She was sent to [facility] for evaluation. On admission, she was noted to be somnolent and hypoglycemic. Hypoglycemic has improved. She remains critically ill with poor prognosis. She is on antibiotics for sepsis of pulmonary/urinary origin. She is thrombocytopenic with high concern for HIT with negative HIT panel and IVAN. Platelet decreased again after starting enoxaparin. She is now on argatroban drip with some improvement in her platelets. She should avoid heparin product. She may be switched back to rivaroxaban after platelet normalized for her DVT. She will need to be monitored closely for bleeding. This morning, I have discussed with the patient again regarding her prognosis and that she is not a candidate for therapy. I have recommended hospice and at the very least switch to DNR/DNI status. She states "I don't know what to say. " She will think about it with her family. I again recommended that hospice would be appropriate with the goal of comfort. I discussed that this was the goal even with treatment given her metastatic disease. Thrombocytopenia: -avoid heparin product -argatroban drip -monitor CBC closely for bleeding (? hematuria) Sepsis: -continue current antibiotics -ID following RUE DVT: -continue argatroban drip Metastatic rectal cancer: -f/u outpatient -recommended DNR/DNI and hospice Please call [phone] with any questions or concerns. Problem List: 1. DVT (deep venous thrombosis) 2. UTI (urinary tract infection) 3. Pneumonia 4. Thrombocytopenia 5. Rectal carcinoma 6. Multiple lesions of metastatic malignancy
[2017-10-18 10:21] LABS: PTT 89 SEC (25-37)
--- NOTE | 2017-10-18 11:05 | PN- Infect Dx ---
Subjective Subjective: Afebrile without new complaints. She continues to complain of a cough, which is dry, but denies increased shortness of breath or chest pain. Objective Last 24 Hrs of Vital Signs/I&O Vital Signs Date Time Temp Pulse Resp B/P B/P Pulse O2 O2 Flow FiO2 Mean Ox Delivery Rate 10/18 08 99 Nasal 2.0L Cannula 10/18 0800 96.8 72 16 114/70 99 Nasal 2.0L Cannula 10/18 0400 98 Nasal 2.0L Cannula 10/18 0000 99 Nasal 2.0L Cannula 10/18 0000 97.0 83 16 120/64 99 Nasal 2.0L Cannula 10/17 1600 98 Nasal 2.0L Cannula 10/17 1600 97.1 86 18 132/70 100 Nasal 2.0L Cannula 10/17 1330 97.1 90 16 134/64 98 Nasal 2.0L Cannula Intake & Output 10/18 1600 10/18 0800 10/18 0000 Intake Total 612 148 Output Total 381 550 Balance 231 -402 Intake, IV 612 148 Intake, Oral 0 Number 0 Bowel Movements Output, Other 275 300 Output, Stool 50 50 Output, Urine 56 200 Physical Exam Other Physical Findings: She appears weak and chronically ill but in no acute distress Lungs scattered rhonchi bilaterally Heart regular rhythm with no murmur Abdomen is mildly distended, nontender with positive bowel sounds Extremities 2-3+ edema both lower extremities Blake catheter remains in place Results Last 24 Hours of Lab Results: Laboratory Tests 10/18 10/18 10/18 0940 0600 0500 Chemistry Sodium (137 - 145 mmol/L) Cancelled 140 Potassium (3.5 - 5.1 mmol/L) Cancelled 4.3 Chloride (98 - 107 mmol/L) Cancelled 112 H Carbon Dioxide (22 - 30 mmol/L) Cancelled 19 L Anion Gap (5 - 16) Cancelled 9 BUN (7 - 17 mg/dL) Cancelled 25 H Creatinine (0.5 - 1.0 mg/dL) Cancelled 1.1 H Estimated GFR (>60 ml/min) 48 L BUN/Creatinine Ratio Cancelled Glucose (65 - 99 mg/dL) 190 H Calcium (8.4 - 10.2 mg/dL) 7.5 L Phosphorus (2.5 - 4.5 mg/dL) 2.7 Magnesium (1.6 - 2.3 mg/dL) 1.6 Total Bilirubin (0.2 - 1.3 mg/dL) 1.6 H AST (14 - 36 U/L) 73 H ALT (9 - 52 U/L) 44 Albumin (3.5 - 5.0 g/dL) 1.6 L Coagulation APTT (25 - 37 SEC) 89 H 99 H Hematology CBC w Diff Cancelled NO MAN DIFF REQ WBC (4.8 - 10.8 /CUMM) Cancelled 9.4 RBC (4.20 - 5.40 /CUMM) Cancelled 3.54 L Hgb (12.0 - 16.0 G/DL) Cancelled 8.6 L Hct (37 - 47 %) Cancelled 27.2 L MCV (81.0 - 99.0 FL) Cancelled 76.9 L MCH (27.0 - 31.0 PG) Cancelled 24.5 L MCHC (33.0 - 37.0 G/DL) Cancelled 31.8 L RDW (11.5 - 14.5 %) Cancelled 23.7 H Plt Count (130 - 400 /CUMM) Cancelled 34 L MPV (7.4 - 10.4 FL) Cancelled 9.8 Gran % (42.2 - 75.2 %) 82.2 H Lymphocytes % (20.5 - 51.1 %) 12.2 L Monocytes % (1.7 - 9.3 %) 5.1 Eosinophils % (0 - 5 %) 0.5 Basophils % (0.0 - 2.0 %) 0 Absolute Granulocytes (1.4 - 6.5 /CUMM) 7.7 H Absolute Lymphocytes (1.2 - 3.4 /CUMM) 1.1 L Absolute Monocytes (0.10 - 0.60 /CUMM) 0.5 Absolute Eosinophils (0.0 - 0.7 /CUMM) 0 Absolute Basophils (0.0 - 0.2 /CUMM) 0 10/17 10/17 9507 3947 Coagulation APTT (25 - 37 SEC) > 120 *H Urines Urinalysis LIGHT H Urine Color (YEL,AMB,STR) BLDY H Urine Clarity (CLEAR) CLDY H Urine pH (5.0 - 8.0) 6.5 Ur Specific [place] (1.001 - 1.035) 1.025 Urine Protein (NEG,<30 MG/DL) >=300 H Urine Ketones (NEG) TRACE H Urine Nitrite (NEG) POS H Urine Bilirubin (NEG) NEG@ICTO Urine Urobilinogen (0.1 - 1.0 EU/dl) 1.0 Ur Leukocyte Esterase (NEG) MOD H Ur Microscopic SEDIMENT EXAMINED Urine RBC (0 - 5 /HPF) PACKD H Urine WBC (0 - 2 /HPF) 5-10 H Urine Bacteria (NEG/NONE) MOD H Granular Casts (NONE /LPF) 1-3 H Micro UA Comment MORE INFO: H Urine Hemoglobin (NEG) LARGE H Urine Glucose (N MG/DL) NEG 10/17 10/17 1745 1737 Coagulation APTT (25 - 37 SEC) > 120 *H Hematology CBC w Diff NO MAN DIFF REQ WBC (4.8 - 10.8 /CUMM) 12.1 H RBC (4.20 - 5.40 /CUMM) 3.90 L Hgb (12.0 - 16.0 G/DL) 9.5 L Hct (37 - 47 %) 30.3 L MCV (81.0 - 99.0 FL) 77.6 L MCH (27.0 - 31.0 PG) 24.4 L MCHC (33.0 - 37.0 G/DL) 31.5 L RDW (11.5 - 14.5 %) 24.1 H Plt Count (130 - 400 /CUMM) 28 *L MPV (7.4 - 10.4 FL) 10.5 H Gran % (42.2 - 75.2 %) 84.3 H Lymphocytes % (20.5 - 51.1 %) 9.9 L Monocytes % (1.7 - 9.3 %) 5.0 Eosinophils % (0 - 5 %) 0.7 Basophils % (0.0 - 2.0 %) 0.1 Absolute Granulocytes (1.4 - 6.5 /CUMM) 10.2 H Absolute Lymphocytes (1.2 - 3.4 /CUMM) 1.2 Absolute Monocytes (0.10 - 0.60 /CUMM) 0.6 Absolute Eosinophils (0.0 - 0.7 /CUMM) 0.1 Absolute Basophils (0.0 - 0.2 /CUMM) 0 Urines Ur Random Creatinine (mg/dL) 110.4 U Random Total Protein (0 - 12 mg/dL) 361 H Protein/Creatinin Ratio (< 0.2) 3.2 H Last 24 Hours of Tha Results: No recent cultures Assessment/Plan ID Impression: Overall condition remains poor, with little hope for recovery, in this patient with metastatic adenocarcinoma of the rectum. She remains afebrile with white blood cell count now normal on Vancomycin and Ceftazidime, Day 7 of treatment for possible MRSA pneumonia and Klebsiella UTI, with no evidence of improvement in her status over the past week. Her platelet count remains low though slightly increased from yesterday. Oncology recommendations regarding hospice noted. Suggestion: 1. Await decision regarding hospice 2. Discontinue Vancomycin and Ceftazidime and follow off antibiotics pending above
[2017-10-18 13:00] VITALS: BP 102/60
[2017-10-18 14:25] LABS: PTT 81 SEC (25-37)
[2017-10-18 16:00] VITALS: BP 118/64
[2017-10-18 20:00] VITALS: BP 132/74
--- NOTE | 2017-10-18 21:45 | PN- Palliative Care ---
Subjective Subjective: Family meeting held to discuss goals of care. Attendees: Patient's son and daughter, Dr. Dennis Hunter, housestaff A family meeting was held from 3:40 - 4:40pm to discuss patient's current condition and to share medical recommendations. Both her son and daughter express understanding of patient's terminal condition. They do indicate throughout the discussion their belief that their mother would not wish aggressive interventions, but then at times return to the concept that she should undergo life prolonging interventions such as intubation or cardiac resuscitation. We discussed the ethical responsibilities of surrogate decision makers to advocate for the wishes of the patient to the best extent of their knowledge. The medical team shared the unified opinion that cardiac arrest and/ or respiratory failure would almost certainly represent further catastrophic deterioration of the patient's condition - recovery from which would be unlikely. Her children express understanding of this concept, but wish to try to consult with the patient in order to feel assured they are advocating for her wishes. We cautioned them that the patient's capacity to understand these concepts at this time is uncertain and limited at best. Regardless, they wish to try to discuss this with their mother. We advised them that we would be honoring their wishes and will be consulting with them regarding consent for or against any inteventions. They are aware that patient is not obtaining adequate nutritional intake. We dicussed also the benefits and risks of NGT placement. We also discussed ongoing aspiration risk. We shared the medical opinion that artificial nutrition at this point may sustain her, but is not likely to be solely responsible for any significant improvment. Review of Systems: unobtainable Objective Last 24 Hrs of Vital Signs/I&O Vital Signs Date Time Temp Pulse Resp B/P B/P Pulse O2 O2 Flow FiO2 Mean Ox Delivery Rate 10/18 1600 99.6 79 12 118/64 98 Nasal 2.0L Cannula 10/18 1600 98 Nasal 2.0L Cannula 10/18 1300 96.7 77 16 102/60 100 Nasal 2.0L Cannula 10/18 1200 100 Nasal 2.0L Cannula 10/18 0800 99 Nasal 2.0L Cannula 10/18 0800 96.8 72 16 114/70 99 Nasal 2.0L Cannula 10/18 0400 98 Nasal 2.0L Cannula 10/18 0000 99 Nasal 2.0L Cannula 10/18 0000 97.0 83 16 120/64 99 Nasal 2.0L Cannula Intake & Output 10/18 1600 10/18 0800 10/18 0000 Intake Total 629.5 612 148 Output Total 300 381 550 Balance 329.5 231 -402 Intake, IV 629.5 612 148 Intake, Oral 0 Number 0 Bowel Movements Output, Other 250 275 300 Output, Stool 50 50 Output, Urine 50 56 200 Physical Exam: ill appearing, in bed Current Medications Current Medications: Current Medications Sig/Rose Start time Last Medication Dose Route Stop Time Status Admin Argatroban 250 MG Q24H 10/17 0930 AC 10/17 Sodium Chloride 250 ML IV 1420 Benzonatate 100 MG TID 10/09 2100 AC 10/16 PO 2019 Ceftazidime 1,000 MG Q12 10/16 1515 AC 10/18 IV 10/18 2300 2139 Dextrose/Sodium 1,000 ML Q10H 10/18 1400 AC 10/18 Chloride IV 1519 Dextrose/Sodium 1,000 ML Q13H 10/17 2014 AC 10/18 Chloride IV 10/18 2214 0931 Guaifenesin 10 ML Q6P PRN 10/09 2014 AC 10/10 PO 0524 Levothyroxine Sodium 12.5 MCG DAILY 10/14 0900 AC 10/18 IV 1039 Magnesium Sulfate 1 GM ONCE ONE 10/18 1415 CO 10/18 Dextrose/Water 100 ML IV 10/18 1814 1519 Morphine Sulfate 2 MG Q4P PRN 10/12 1115 AC 10/17 IV 0613 Ondansetron HCl 4 MG Q8P PRN 10/06 1845 AC 10/12 IV 1147 Pantoprazole Sodium 40 MG DAILY 10/13 0900 AC 10/18 IV 0824 Polyethylene Glycol 17 GM DAILY PRN 10/08 1145 AC 10/10 PO 0856 Potassium Chloride 80 MEQ .STK-MED ONE 10/18 0215 DC PO 10/18 0216 Senna/Docusate Sodium 2 TAB DAILY PRN 10/11 0900 10/15 PO 0951 Vancomycin HCl 1,500 MG DAILY 10/17 0900 DC 10/18 Dextrose/Water 250 ML IV 1039 Vitamin A/Vitamin D 1 BROWN BID 10/11 1300 AC 10/18 TOP 2138 Zinc Oxide 1 BROWN BID 10/11 1300 AC 10/18 TOP 2138 Diagnostic Data Lab/Micro/Pathology Results: Laboratory Tests 10/18/17 1335: APTT 81 H 04/24/18 0940: APTT 89 H 10/18/17 0600: Sodium Cancelled, Potassium Cancelled, Chloride Cancelled, Carbon Dioxide Cancelled, Anion Gap Cancelled, BUN Cancelled, Creatinine Cancelled, BUN/ Creatinine Ratio Cancelled, CBC w Diff Cancelled, WBC Cancelled, RBC Cancelled, Hgb Cancelled, Hct Cancelled, MCV Cancelled, MCH Cancelled, MCHC Cancelled, RDW Cancelled, Plt Count Cancelled, MPV Cancelled 10/18/17 0500: Anion Gap 9, Estimated GFR 48 L, Glucose 190 H, Calcium 7.5 L, Phosphorus 2.7 , Magnesium 1.6, Total Bilirubin 1.6 H, AST 73 H, ALT 44, Albumin 1.6 L, APTT 99 H, CBC w Diff NO MAN DIFF REQ, RBC 3.54 L, MCV 76.9 L, MCH 24.5 L, MCHC 31.8 L, RDW 23.7 H, MPV 9.8, Gran % 82.2 H, Lymphocytes % 12.2 L, Monocytes % 5.1, Eosinophils % 0.5, Basophils % 0, Absolute Granulocytes 7.7 H, Absolute Lymphocytes 1.1 L, Absolute Monocytes 0.5, Absolute Eosinophils 0, Absolute Basophils 0 10/17/17 2345: APTT > 120 *H Assessment/Plan Assessment Stage 4 rectal carcinoma, encephalopathy, failure to improve despite aggressive interventions Patient's Condition: critical Prognosis: poor Is Patient Decisional? no Case Discussed With: family, house staff, attending Treatment Preferences: 1. Continue to aggressively treat reversible conditions 2. Ongoing discussions with family re: resuscitation, intubation 3. Supportive care to patient, family
--- NOTE | 2017-10-18 22:11 | Event Note ---
Event Note Event Note: Had lengthy discussion with the patient's daughter Symone and son Berny regarding goals of care, etc. Discussion included Dr. Pedroza and Dr. Mota. Explained difference between DNR/DNI vs Comfort Care. They understand the issues and will make decision pending conversation with their mother. Staff will be informed if any changes in current status are desired.
[2017-10-19] VITALS: BP 130/64
[2017-10-19 01:58] LABS: PTT 71 SEC (25-37)
[2017-10-19 05:01] LABS: ABSOLUTE BASOPHIL COUNT 0 /CUMM (0.0-0.2); ABSOLUTE EOSINOPHIL COUNT 0 /CUMM (0.0-0.7); ABSOLUTE GRANULOCYTE CT 8.2 /CUMM (1.4-6.5); ABSOLUTE LYMPH COUNT 1.2 /CUMM (1.2-3.4); ABSOLUTE MONOCYTE COUNT 0.3 /CUMM (0.10-0.60); BASOPHIL % 0.1 % (0.0-2.0); EOSINOPHIL % 0.4 % (0-5); HEMATOCRIT 27.9 % (37-47); MEAN CORPUSCULAR HGB 24.8 PG (27.0-31.0); MEAN CORPUSCULAR VOLUME 77.4 FL (81.0-99.0); MEAN PLATELET VOLUME 8.8 FL (7.4-10.4); RBC DISTRIBUTION WIDTH 23.9 % (11.5-14.5); RED BLOOD CELL CT 3.61 /CUMM (4.20-5.40); WHITE BLOOD CELL COUNT 9.8 /CUMM (4.8-10.8)
[2017-10-19 05:11] LABS: PLATELET COUNT 71 /CUMM (130-400)
--- NOTE | 2017-10-19 07:28 | PN- CRCU ---
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 She was very sedated but able to respond on verbal stimulation. She denied any current complaints and go back to sleep while I was in the room. Her vital signs remain stable and she remained afebrile. She required 2 L of nasal cannula oxygen to keep oxygen saturation more than 95%. Her WBC count remained normal, hemoglobin stable at 8.9 and her platelet count is going up and is 71 today Objective Current Medications: Current Medications Sig/Rose Start time Last Medication Dose Route Stop Time Status Admin Argatroban 250 MG Q24H 10/17 0930 10/17 Sodium Chloride 250 ML IV 1420 Benzonatate 100 MG TID 10/09 2100 AC 10/16 PO 2019 Ceftazidime 1,000 MG Q12 10/16 1515 DC 10/18 IV 10/18 2300 2139 Dextrose/Sodium 1,000 ML Q6H 10/19 1145 10/19 Chloride IV 10/19 2344 1138 Dextrose/Sodium 1,000 ML Q10H 10/18 1400 DC 10/19 Chloride IV 10/19 0639 0316 Dextrose/Sodium 1,000 ML Q13H 10/17 2015 DC 10/18 Chloride IV 10/18 2214 0931 Guaifenesin 10 ML Q6P PRN 10/09 2014 AC 10/10 PO 0524 Levothyroxine Sodium 12.5 MCG DAILY 10/14 09 10/19 IV 0913 Magnesium Sulfate 1 GM ONCE ONE 10/18 1415 DC 10/18 Dextrose/Water 100 ML IV 10/18 1814 1519 Morphine Sulfate 2 MG Q4P PRN 10/12 1115 10/19 IV 0516 Ondansetron HCl 4 MG Q8P PRN 10/06 1845 AC 10/12 IV 1147 Pantoprazole Sodium 40 MG DAILY 10/13 09 10/19 IV 0913 Polyethylene Glycol 17 GM DAILY PRN 10/08 1145 AC 10/10 PO 0856 Senna/Docusate Sodium 2 TAB DAILY PRN 10/11 0900 AC 10/15 PO 0951 Vitamin A/Vitamin D 1 BROWN BID 10/11 1300 10/19 TOP 0914 Zinc Oxide 1 BROWN BID 10/11 1300 10/19 TOP 0914 Vital Signs & I&O Last 24 Hrs of Vitals and I&O: Vital Signs Date Time Temp Pulse Resp B/P B/P Pulse O2 O2 Flow FiO2 Mean Ox Delivery Rate 10/19 0400 97 Nasal 2.0L Cannula 10/19 0000 98 Nasal 2.0L Cannula 10/19 0000 97.0 84 16 130/64 98 Nasal 2.0L Cannula 10/19 1999 97 Nasal 2.0L Cannula 10/19 1999 96.0 84 16 132/74 97 Nasal 2.0L Cannula 10/18 1600 99.6 79 12 118/64 98 Nasal 2.0L Cannula 10/18 1600 98 Nasal 2.0L Cannula 10/18 1300 96.7 77 16 102/60 100 Nasal 2.0L Cannula 10/18 1200 100 Nasal 2.0L Cannula Intake & Output 10/19 1600 10/19 0800 10/19 0000 Intake Total 786 954 Output Total 552 368 Balance 234 586 Intake, IV 786 954 Intake, Oral 0 Output, 300 Drainage Output, Other 450 Output, Stool 50 0 Output, Urine 52 68 Exam General Appearance: sedated, lethargic Head: normal appearance Neck: supple Respiratory: chest non-tender, no respiratory distress Cardiovascular: regular rate/rhythm, edema Abdomen: soft, colostomy bag Extremities: bilateral lower extremity edema Results Last 24 Hrs of Lab Results: Laboratory Tests 10/19/17 0425: Anion Gap 5, Estimated GFR 44 L, Glucose 175 H, Calcium 7.6 L, Phosphorus 2.7 , Magnesium 2.0, Total Bilirubin 1.5 H, AST 58 H, ALT 33, Albumin 1.6 L, CBC w Diff MAN DIFF ORDERED, RBC 3.61 L, MCV 77.4 L, MCH 24.8 L, MCHC 32.0 L, RDW 23.9 H, MPV 8.8, Gran % 84.0 H, Lymphocytes % 12.3 L, Monocytes % 3.2, Eosinophils % 0.4, Basophils % 0.1, Absolute Granulocytes 8.2 H, Segmented Neutrophils 88 H, Band Neutrophils 2, Absolute Lymphocytes 1.2, Lymphocytes 6 L, Monocytes 3, Absolute Monocytes 0.3, Eosinophils 1, Absolute Eosinophils 0, Absolute Basophils 0, Platelet Estimate DECREASED, Polychromasia 1+, Hypochromic -Microcytic 1+, Poikilocytosis 1+, Anisocytosis 1+, Microcytic Cells 1+, Ovalocytes 1+, Fld Total RBCs Counted 100 10/19/17 0135: APTT 71 H 10/18/17 1335: APTT 81 H Impression/Plan Impression/Plan Impression/Plan: Ms Russo is a 76-year-old woman with PMHx of 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 Montoya), coronary artery disease status post stents, type 2 diabetes, hypothyroidism hyperlipidemia, hypertension who was brought to the hospital after she was found to have severe back pain and altered mental status and found to have had hypoglycemia to 22 mg/dl. She was initially admitted to general medicine and topically transferred to ICU for management of hypoglycemia and altered mental status and transferred back to the general medicine floor on 10/15/17 but keep due to concerns of low platelet and requiring a Troponin drip was transferred back to ICU on October 18. Problem list: 1. MRSA pneumonia 2. Klebsiella UTI 3. Stage IV rectal adenocarcinoma 4. Dysphagia 5. Hypoglycemia, resolved 6. Thrombocytopenia, likely heparin-induced 7. Abdominal wound 8. Low urine output #MRSA pneumonia: Sputum growing MRSA sensitive to trimethoprim sulfamethoxazole and clindamycin. Patient's respiratory status is stable on antibiotic therapy. No fevers recently, leukocytosis improving. -Continue oxygen -She completed a course of Vanco for 7 days #Klebsiella UTI: she completed a course of Ceftaz for 7 days and we will watch her off of antibiotics for now #Stage IV rectal adenocarcinoma: Patient has very poor prognosis given metastatic disease. Palliative care has been consulted, family pursuing aggressive measures at this time. We are arranging a family meeting today and we will readdress her CODE STATUS. We have lengthy discussion with family yesterday who apparently were convinced that most likely aggressive measures including CPR/intubation would not help her in the long run but still they want to keep her full code pending discussion with her mom. #Hypoglycemia: Results we will monitor with Accu-Cheks 3 times a day and at bedtime #Thrombocytopenia, likely heparin-induced: Patient had an initial drop in platelets while on heparin. His workup was negative however. She was restarted on enoxaparin and her platelets again declined. Hematology is recommending to avoid heparin at this time. Platelets this morning are 71. She will go back to [facility] once her platelets came back in normal range. More than 150,000 -No heparin or heparin products and future -Closer monitoring for any bleeding. Monitor platelet count daily- #Abdominal wound: The patient has a bag on her abdomen that is draining ascitic fluid from a chronic abdominal wound. This puts her at risk for infection. We will talk to Dr. Montoya about further management of this. -Appreciate colorectal surgery recommendations #Chronic medical problems: -Continue other home medications DVT prophylaxis with argatroban Nothing by mouth pending swallow evaluation Full code Code Status: Full Code at the moment. We will continue discussing with family regarding the medication for DNI DNR Code Status: Full Code Dennis Hunter MD 10/19/171918: Attending MD Review Statement Attending Statement Attending MD Statement: examined this patient, discuss w/resident/PA/INSURANCE LOSS ADJUSTER, agreed w/resident/PA/INSURANCE LOSS ADJUSTER, discussed with family, reviewed EMR data (avail), discussed w/ nursing, discussed w/case mgmt, amended to note Attending Assessment/Plan: The patient was seen and discussed with house staff. Platelet count increasing on Argatroban drip. Patient appears comfortable. Swallow evaluation done and only took minimal thickened liquid. Still unable to take adequate po. After conversation with family yesterday they spoke with their mother. I called her daughter and she stated her mother continued to want "everything done". Explained again that her nutrition is an issue and expect further decline in her status if unable to take po. Family affirmed that they wish full code status at present. They do understand that prognosis is poor.
--- NOTE | 2017-10-19 07:43 | PN- Oncology ---
Subjective Subjective: She denies any pain. She has no fever or chills. She has no nausea or vomiting. She does report some sore throat which make it difficult for her to swallow. She still has a persistent cough. Primary team and palliative care has spoken to the family overall goals of care. State that she spoke to the family and the family encouraged her to "go through with therapy." Review of Systems: Constitutional: Denies: chills, fever. HEENT: Reports: sore throat. Cardiovascular: Denies: chest pain. Respiratory: Reports: short of breath. cough. Gastrointestinal: Reports: abdominal pain (suprapubic). Neurological/Psychological: Reports: confusion. All Other Systems: Reviewed and Negative Objective Vital Signs and I&Os Vital Signs Date Time Temp Pulse Resp B/P B/P Pulse O2 O2 Flow FiO2 Mean Ox Delivery Rate 10/19 0400 97 Nasal 2.0L Cannula 10/19 0000 98 Nasal 2.0L Cannula 10/19 0000 97.0 84 16 130/64 98 Nasal 2.0L Cannula 10/18 2000 97 Nasal 2.0L Cannula 10/18 2000 96.0 84 16 132/74 97 Nasal 2.0L Cannula 10/18 1600 99.6 79 12 118/64 98 Nasal 2.0L Cannula 10/18 1600 98 Nasal 2.0L Cannula 10/18 1300 96.7 77 16 102/60 100 Nasal 2.0L Cannula 10/18 1200 100 Nasal 2.0L Cannula 10/18 0800 99 Nasal 2.0L Cannula 10/18 0800 96.8 72 16 114/70 99 Nasal 2.0L Cannula Intake & Output 10/19 0800 10/19 0000 10/18 1600 10/18 0800 10/18 0000 10/17 1600 Intake Total 786 954 629.5 612 148 250 Output Total 552 368 300 728 533 0414 Balance 234 586 329.5 231 -402 -1000 Intake, IV 786 954 629.5 612 148 250 Intake, Oral 0 0 Number 0 Bowel Movements Output, 300 Drainage Output, Other 450 250 621 397 8614 Output, Stool 50 0 50 50 100 Output, Urine 52 68 50 56 200 150 Physical Exam: General Appearance: alert, awake, mild distress, obese, somnolent Eyes: Bilateral: PERRL. Ears, Nose, Throat: normal pharynx, throat tender to palpation Respiratory: rhonchi, quiet respiration, tachypnea Cardiovascular: tachycardia, no murmurs Gastrointestinal: normal bowel sounds, tenderness, LLQ colostomy in place, abdominal bag in place with clear and yellow fluid : edwards in place. Dark urine. Extremities: upper and lower extremity edema 3+ throughout Neurologic/Psych: awake, alert, oriented, slow to answer questions. Current Medications: Current Medications Sig/Rose Start time Last Medication Dose Route Stop Time Status Admin Argatroban 250 MG Q24H 10/17 929 AC 10/17 Sodium Chloride 250 ML IV 1420 Benzonatate 100 MG TID 10/09 2099 AC 10/16 PO 2019 Ceftazidime 1,000 MG Q12 10/16 1515 DC 10/18 IV 10/18 2300 2139 Dextrose/Sodium 1,000 ML Q10H 10/18 1400 DC 10/19 Chloride IV 10/19 0639 0316 Dextrose/Sodium 1,000 ML Q13H 10/17 2014 DC 10/18 Chloride IV 10/18 2214 0931 Guaifenesin 10 ML Q6P PRN 10/09 2014 AC 10/10 PO 0524 Levothyroxine Sodium 12.5 MCG DAILY 10/14 09 AC 10/18 IV 1039 Magnesium Sulfate 1 GM ONCE ONE 10/18 1415 DC 10/18 Dextrose/Water 100 ML IV 10/18 1814 1519 Morphine Sulfate 2 MG Q4P PRN 10/12 1115 AC 10/19 IV 0516 Ondansetron HCl 4 MG Q8P PRN 10/06 1845 AC 10/12 IV 1147 Pantoprazole Sodium 40 MG DAILY 10/13 09 AC 10/18 IV 0824 Polyethylene Glycol 17 GM DAILY PRN 10/08 1145 AC 10/10 PO 0856 Senna/Docusate Sodium 2 TAB DAILY PRN 10/11 0900 AC 10/15 PO 0951 Vancomycin HCl 1,500 MG DAILY 10/17 09 DC 10/18 Dextrose/Water 250 ML IV 1039 Vitamin A/Vitamin D 1 BROWN BID 10/11 1300 AC 10/18 TOP 2138 Zinc Oxide 1 BROWN BID 10/11 1300 10/18 TOP 2138 Results Last 24 Hours of Lab Results: Laboratory Tests 10/19 10/19 10/18 10/18 0425 0135 1335 0940 Chemistry Sodium (137 - 145 mmol/L) 139 Potassium (3.5 - 5.1 mmol/L) 4.2 Chloride (98 - 107 mmol/L) 115 H Carbon Dioxide (22 - 30 mmol/L) 18 L Anion Gap (5 - 16) 5 BUN (7 - 17 mg/dL) 28 H Creatinine (0.5 - 1.0 mg/dL) 1.2 H Estimated GFR (>60 ml/min) 44 L Glucose (65 - 99 mg/dL) 175 H Calcium (8.4 - 10.2 mg/dL) 7.6 L Phosphorus (2.5 - 4.5 mg/dL) 2.7 Magnesium (1.6 - 2.3 mg/dL) 2.0 Total Bilirubin (0.2 - 1.3 mg/dL) 1.5 H AST (14 - 36 U/L) 58 H ALT (9 - 52 U/L) 33 Albumin (3.5 - 5.0 g/dL) 1.6 L Coagulation APTT (25 - 37 SEC) 71 H 81 H 89 H Hematology CBC w Diff MAN DIFF ORDERED WBC (4.8 - 10.8 /CUMM) 9.8 RBC (4.20 - 5.40 /CUMM) 3.61 L Hgb (12.0 - 16.0 G/DL) 8.9 L Hct (37 - 47 %) 27.9 L MCV (81.0 - 99.0 FL) 77.4 L MCH (27.0 - 31.0 PG) 24.8 L MCHC (33.0 - 37.0 G/DL) 32.0 L RDW (11.5 - 14.5 %) 23.9 H Plt Count (130 - 400 /CUMM) 71 L MPV (7.4 - 10.4 FL) 8.8 Gran % (42.2 - 75.2 %) 84.0 H Lymphocytes % (20.5 - 51.1 %) 12.3 L Monocytes % (1.7 - 9.3 %) 3.2 Eosinophils % (0 - 5 %) 0.4 Basophils % (0.0 - 2.0 %) 0.1 Absolute Granulocytes (1.4 - 6.5 /CUMM) 8.2 H Segmented Neutrophils (42.2 - 75.2 %) 88 H Band Neutrophils (0.0 - 5.0 %) 2 Absolute Lymphocytes (1.2 - 3.4 /CUMM) 1.2 Lymphocytes (20.5 - 51.1 %) 6 L Monocytes (1.7 - 9.3 %) 3 Absolute Monocytes (0.10 - 0.60 /CUMM) 0.3 Eosinophils (0 - 5.0 %) 1 Absolute Eosinophils (0.0 - 0.7 /CUMM) 0 Absolute Basophils (0.0 - 0.2 /CUMM) 0 Platelet Estimate (ADEQUATE) DECREASED Polychromasia 1+ Hypochromic-Microcytic 1+ Poikilocytosis 1+ Anisocytosis 1+ Microcytic Cells 1+ Ovalocytes 1+ Other Body Source Fld Total RBCs Counted (%) 100 Assessment/Plan Assessment/Recommendations: Ms. 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 She was seen in radiation oncology office and was noted to be in severe pain. She was sent to [facility] for evaluation. On admission, she was noted to be somnolent and hypoglycemic. Hypoglycemic has improved. She remains critically ill with poor prognosis. Infectious disease is following the patient for sepsis. She has completed a seven-day course of ceftazidime and vancomycin. She has been afebrile. With regard to her thrombocytopenia, this has been improving. Previously she was tested for HIT and noted to have negative HIT panel and IVAN. Platelet counts decreased after starting enoxaparin. 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 She has improved since holding enoxaparin and starting argatroban. She has no obvious bleeding complication. Overall prognosis is poor. I have previously recommended that the patient consider DNR/DNI. She would benefit from hospice. The patient and the family had discussion with the primary team and palliative care. According to the patient the decision is to remain full code. Once again I discussed with the patient that she is not a candidate for treatment for my aspect Thrombocytopenia secondary to heparin: -avoid heparin product -argatroban drip -monitor CBC closely for bleeding (? hematuria) Sepsis: -ID following -treatment as per primary/ID RUE DVT: -continue argatroban drip -can switch to oral if platelet count >150,000 Metastatic rectal cancer: -f/u outpatient -recommended DNR/DNI and hospice Please call [phone] with any questions or concerns. Problem List: 1. Thrombocytopenia 2. Metastatic disease 3. Rectal carcinoma 4. Metastases to the liver
[2017-10-19 08:00] VITALS: BP 130/70
--- NOTE | 2017-10-19 11:26 | PN- Infect Dx ---
Subjective Subjective: Afebrile. She offers no complaints. Objective Last 24 Hrs of Vital Signs/I&O Vital Signs Date Time Temp Pulse Resp B/P B/P Pulse O2 O2 Flow FiO2 Mean Ox Delivery Rate 10/19 0400 97 Nasal 2.0L Cannula 10/19 0000 98 Nasal 2.0L Cannula 10/19 0000 97.0 84 16 130/64 98 Nasal 2.0L Cannula 10/19 1999 97 Nasal 2.0L Cannula 10/19 1999 96.0 84 16 132/74 97 Nasal 2.0L Cannula 10/19 1599 99.6 79 12 118/64 98 Nasal 2.0L Cannula 10/18 1600 98 Nasal 2.0L Cannula 10/18 1300 96.7 77 16 102/60 100 Nasal 2.0L Cannula 10/18 1200 100 Nasal 2.0L Cannula Intake & Output 10/19 0800 10/19 0000 Intake Total 786 954 Output Total 552 368 Balance 234 586 Intake, IV 786 954 Intake, Oral 0 Output, 300 Drainage Output, Other 450 Output, Stool 50 0 Output, Urine 52 68 Physical Exam Other Physical Findings: She appears comfortable in no acute distress Lungs are clear Heart regular rhythm with a 2/6 systolic ejection murmur Abdomen is mildly distended, nontender with positive bowel sounds Extremities 3+ edema both lower extremities unchanged Blake catheter remains in place Results Last 24 Hours of Lab Results: Laboratory Tests 10/19 10/19 10/18 0425 0135 1335 Chemistry Sodium (137 - 145 mmol/L) 139 Potassium (3.5 - 5.1 mmol/L) 4.2 Chloride (98 - 107 mmol/L) 115 H Carbon Dioxide (22 - 30 mmol/L) 18 L Anion Gap (5 - 16) 5 BUN (7 - 17 mg/dL) 28 H Creatinine (0.5 - 1.0 mg/dL) 1.2 H Estimated GFR (>60 ml/min) 44 L Glucose (65 - 99 mg/dL) 175 H Calcium (8.4 - 10.2 mg/dL) 7.6 L Phosphorus (2.5 - 4.5 mg/dL) 2.7 Magnesium (1.6 - 2.3 mg/dL) 2.0 Total Bilirubin (0.2 - 1.3 mg/dL) 1.5 H AST (14 - 36 U/L) 58 H ALT (9 - 52 U/L) 33 Albumin (3.5 - 5.0 g/dL) 1.6 L Coagulation APTT (25 - 37 SEC) 71 H 81 H Hematology CBC w Diff MAN DIFF ORDERED WBC (4.8 - 10.8 /CUMM) 9.8 RBC (4.20 - 5.40 /CUMM) 3.61 L Hgb (12.0 - 16.0 G/DL) 8.9 L Hct (37 - 47 %) 27.9 L MCV (81.0 - 99.0 FL) 77.4 L MCH (27.0 - 31.0 PG) 24.8 L MCHC (33.0 - 37.0 G/DL) 32.0 L RDW (11.5 - 14.5 %) 23.9 H Plt Count (130 - 400 /CUMM) 71 L MPV (7.4 - 10.4 FL) 8.8 Gran % (42.2 - 75.2 %) 84.0 H Lymphocytes % (20.5 - 51.1 %) 12.3 L Monocytes % (1.7 - 9.3 %) 3.2 Eosinophils % (0 - 5 %) 0.4 Basophils % (0.0 - 2.0 %) 0.1 Absolute Granulocytes (1.4 - 6.5 /CUMM) 8.2 H Segmented Neutrophils (42.2 - 75.2 %) 88 H Band Neutrophils (0.0 - 5.0 %) 2 Absolute Lymphocytes (1.2 - 3.4 /CUMM) 1.2 Lymphocytes (20.5 - 51.1 %) 6 L Monocytes (1.7 - 9.3 %) 3 Absolute Monocytes (0.10 - 0.60 /CUMM) 0.3 Eosinophils (0 - 5.0 %) 1 Absolute Eosinophils (0.0 - 0.7 /CUMM) 0 Absolute Basophils (0.0 - 0.2 /CUMM) 0 Platelet Estimate (ADEQUATE) DECREASED Polychromasia 1+ Hypochromic-Microcytic 1+ Poikilocytosis 1+ Anisocytosis 1+ Microcytic Cells 1+ Ovalocytes 1+ Other Body Source Fld Total RBCs Counted (%) 100 Last 24 Hours of Tha Results: No recent cultures Assessment/Plan ID Impression: Overall condition remains poor, with little hope for recovery, in this patient with metastatic adenocarcinoma of the rectum. She remains afebrile with white blood cell count normal now off antibiotics after 1 week of treatment with Vancomycin and Ceftazidime for possible MRSA pneumonia and Klebsiella UTI. Her platelet count continues to increase off of the Lovenox and on the Argatroban. She has apparently decided to continue with current treatment and to defer hospice at this time despite recommendations by Oncology. Suggestion: 1. Further management per Medicine/Oncology 2. Continue to follow off antibiotics
[2017-10-19 12:00] VITALS: BP 130/70
[2017-10-19 14:19] LABS: PTT 67 SEC (25-37)
[2017-10-19 16:00] VITALS: BP 112/64
[2017-10-20] VITALS: BP 126/70
[2017-10-20 01:54] LABS: PTT 37 SEC (25-37)
[2017-10-20 05:42] LABS: ABSOLUTE BASOPHIL COUNT 0 /CUMM (0.0-0.2); ABSOLUTE EOSINOPHIL COUNT 0.1 /CUMM (0.0-0.7); ABSOLUTE GRANULOCYTE CT 10.3 /CUMM (1.4-6.5); ABSOLUTE MONOCYTE COUNT 0.2 /CUMM (0.10-0.60); BASOPHIL % 0 % (0.0-2.0); EOSINOPHIL % 0.7 % (0-5); GRANULOCYTE % 89.1 % (42.2-75.2); HEMATOCRIT 26.5 % (37-47); MEAN CORPUSCULAR VOLUME 78.1 FL (81.0-99.0); MEAN PLATELET VOLUME 8.7 FL (7.4-10.4); RBC DISTRIBUTION WIDTH 23.5 % (11.5-14.5); RED BLOOD CELL CT 3.39 /CUMM (4.20-5.40); WHITE BLOOD CELL COUNT 11.5 /CUMM (4.8-10.8)
[2017-10-20 05:50] LABS: PLATELET COUNT 111 /CUMM (130-400)
[2017-10-20 05:51] LABS: PTT 59 SEC (25-37)
[2017-10-20 08:00] VITALS: BP 124/60
--- NOTE | 2017-10-20 08:01 | PN- CRCU ---
Heather Mota 10/20/17 0800: Subjective HPI/Critical Care Issues: Sepsis--- resolved(MRSA pneumonia, UTI) -HI T/HAT--- on argatroban drip -Thrombocytopenia -Hypoglycemia--- resolved -Right upper extremity venous thrombus in the setting of heparin induced thrombocytopenia and underlying malignancy -Metabolic encephalopathy -Metastatic rectal cancer with metastasis to liver and lung, was on palliative radiation currently on hold due to her poor functioning status to be transferred 24 hour events Patient was seen and examined this morning. She was lying comfortably in bed without any complaints. She looks better and brighter this morning. She agreed to try something to eat this morning and fully understand the conversation. Her vital signs today remain stable she remained afebrile. Her urine output is still low just almost 60 mL yesterday. Her creatinine is also slightly going up. We will encourage oral intake. Objective Current Medications: Current Medications Sig/Rose Start time Last Medication Dose Route Stop Time Status Admin Argatroban 250 MG Q24H 10/17 0930 AC 10/17 Sodium Chloride 250 ML IV 1420 Benzonatate 100 MG TID 10/09 2099 AC 10/16 PO 2019 Dextrose/Sodium 1,000 ML Q6H 10/20 0800 AC 10/20 Chloride IV 10/20 1959 0808 Dextrose/Sodium 1,000 ML Q6H 10/19 1145 [place] 10/19 Chloride IV 10/19 2344 2213 Guaifenesin 10 ML Q6P PRN 10/09 2014 AC 10/10 PO 0524 Levothyroxine Sodium 12.5 MCG DAILY 10/14 0900 AC 10/19 IV 0913 Magnesium Sulfate 1 GM ONCE ONE 10/20 0815 AC 10/20 Dextrose/Water 100 ML IV 10/20 1214 0834 Morphine Sulfate 2 MG Q4P PRN 10/12 1115 AC 10/19 IV 0516 Ondansetron HCl 4 MG Q8P PRN 10/06 1845 AC 10/12 IV 1147 Pantoprazole Sodium 40 MG DAILY 10/13 09 AC 10/20 IV 0808 Polyethylene Glycol 17 GM DAILY PRN 10/08 1145 AC 10/10 PO 0856 Potassium Phosphate 15 mMol ONE ONE 10/20 0815 AC Dextrose/Water 250 ML IV 10/20 1219 Senna/Docusate Sodium 2 TAB DAILY PRN 10/11 0900 AC 10/15 PO 0951 Vitamin A/Vitamin D 1 BROWN BID 10/11 1300 AC 10/20 TOP 0809 Zinc Oxide 1 BROWN BID 10/11 1300 AC 10/19 TOP 2114 Vital Signs & I&O Last 24 Hrs of Vitals and I&O: Vital Signs Date Time Temp Pulse Resp B/P B/P Pulse O2 O2 Flow FiO2 Mean Ox Delivery Rate 10/20 0800 97.9 88 20 124/60 98 Nasal 2.0L Cannula 10/20 0800 98 Nasal 2.0L Cannula 10/20 0400 99 Nasal 2.0L Cannula 10/20 0000 99 Nasal 2.0L Cannula 10/20 0000 96.9 87 18 126/70 99 Nasal 2.0L Cannula 10/19 2000 97 Nasal 2.0L Cannula 10/19 1600 100 Nasal 2.0L Cannula 10/19 1600 96.0 84 17 112/64 100 Nasal 2.0L Cannula 10/19 1200 Nasal 2.0L Cannula 10/19 1200 97.1 78 15 130/70 100 Nasal 2.0L Cannula Intake & Output 10/20 1600 10/20 0800 10/20 0000 Intake Total 7218 755 Output Total 360 315 Balance 6858 440 Intake, IV 7218 755 Intake, Oral 0 Output, 250 Drainage Output, Other 300 Output, Urine 60 65 Exam General Appearance: alert, awake Head: atraumatic Neck: supple Respiratory: chest non-tender, no respiratory distress Cardiovascular: edema Abdomen: soft, non-tender, clostomy bag in place, and under separate back for a septic fluid in place no erythema noted Extremities: bilateral 3+ lower extremity edema Results Last 24 Hrs of Lab Results: Laboratory Tests 10/20/17 0515: Anion Gap 7, Estimated GFR 40 L, Glucose 144 H, Calcium 7.2 L, Phosphorus 2.9 , Magnesium 1.5 L, Total Bilirubin 1.2, AST 47 H, ALT 35, Albumin 1.5 L, APTT 59 H, CBC w Diff MAN DIFF ORDERED, RBC 3.39 L, MCV 78.1 L, MCH 25.0 L, MCHC 32.0 L, RDW 23.5 H, MPV 8.7, Gran % 89.1 H, Lymphocytes % 8.8 L, Monocytes % 1.4 L, Eosinophils % 0.7, Basophils % 0, Absolute Granulocytes 10.3 H, Segmented Neutrophils 87 H, Band Neutrophils 1, Absolute Lymphocytes 1.0 L, Lymphocytes 5 L, Monocytes 6, Absolute Monocytes 0.2, Eosinophils 1, Absolute Eosinophils 0.1, Absolute Basophils 0, Platelet Estimate ADEQUATE, Polychromasia 1+, Hypochromic-Microcytic 1+, Poikilocytosis 1+, Anisocytosis 1+, Microcytic Cells 1+, Ovalocytes 1+, Fld Total RBCs Counted 100 10/20/17 0115: APTT 37 10/19/17 1315: APTT 67 H Impression/Plan Impression/Plan Impression/Plan: Ms Russo is a 76-year-old woman with PMHx of 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 Montoya), coronary artery disease status post stents, type 2 diabetes, hypothyroidism hyperlipidemia, hypertension who was brought to the hospital after she was found to have severe back pain and altered mental status and found to have had hypoglycemia to 22 mg/dl. She was initially admitted to general medicine and topically transferred to ICU for management of hypoglycemia and altered mental status and transferred back to the general medicine floor on 10/15/17 but keep due to concerns of low platelet and requiring a Troponin drip was transferred back to ICU on October 18. Problem list: 1. MRSA pneumonia 2. Klebsiella UTI 3. Stage IV rectal adenocarcinoma 4. Dysphagia 5. Hypoglycemia, resolved 6. Thrombocytopenia, likely heparin-induced 7. Abdominal wound 8. Low urine output #MRSA pneumonia: Sputum growing MRSA sensitive to trimethoprim sulfamethoxazole and clindamycin. Patient's respiratory status is stable on antibiotic therapy. No fevers recently, leukocytosis improving. -Continue oxygen -She completed a course of Vanco for 7 days #Klebsiella UTI: she completed a course of Ceftaz for 7 days and we will watch her off of antibiotics for now #Stage IV rectal adenocarcinoma: Patient has very poor prognosis given metastatic disease. Palliative care has been consulted, family pursuing aggressive measures at this time. We are arranging a family meeting today and we will readdress her CODE STATUS. We have lengthy discussion with family yesterday who apparently were convinced that most likely aggressive measures including CPR/intubation would not help her in the long run but still they want to keep her full code pending discussion with her mom. #Hypoglycemia: Results we will monitor with Accu-Cheks 3 times a day and at bedtime #Thrombocytopenia/HIT/HAT, likely heparin-induced: Patient had an initial drop in platelets while on heparin. His workup was negative however. She was restarted on enoxaparin and her platelets again declined. Hematology is recommending to avoid heparin at this time. Platelets this morning are 111. She will go back to [facility] once her platelets came back in normal range. More than 150,000 -No heparin or heparin products and future -Closer monitoring for any bleeding. Monitor platelet count daily- #Abdominal wound: The patient has a bag on her abdomen that is draining ascitic fluid from a chronic abdominal wound. This puts her at risk for infection. We will talk to Dr. Montoya about further management of this. -Appreciate colorectal surgery recommendations # #Chronic medical problems: -Continue other home medications DVT prophylaxis with argatroban Nothing by mouth pending swallow evaluation Full code Code Status: Full Code at the moment. We will continue discussing with family regarding the medication for DNI DNR Code Status: Full Code Code Status: Full Code Dennis Hunter MD 10/20/176: Attending MD Review Statement Attending Statement Attending MD Statement: examined this patient, discuss w/resident/PA/GUEST ROOM ATTENDANT, agreed w/resident/PA/GUEST ROOM ATTENDANT, discussed with family, reviewed EMR data (avail), discussed w/ nursing, discussed w/case mgmt, amended to note Attending Assessment/Plan: The patient was seen and discussed with house staff, nursing, and case management. Slightly more alert this morning. I had discussion with the patient regarding her code status. Her children had a similar discussion over the last couple of days. She endorsed that she realizes that she "is not getting out of here" and is declining. She also expressed great "fear of dying". I discussed the process of CPR and intubation and she was having difficulty expressing herself. Able to take some thickened liquids in, however unable to take in enough to provide nutrition. Platelet count rising. Will need to re-address issue of NG tube for meds/feeding with family if they wish to continue aggressive care.
--- NOTE | 2017-10-20 10:31 | PN- Palliative Care Social Wrk ---
Social Work Assessment/Plan Social Work Assessment/Plan: Palliative care Consult received. EHR reviewed, and case discussed with Dr. Pedroza, [facility] resident and RN. Patient has had a marked deterioration over the past 48 hours. Sepsis is suspected; source unknown. Patient with rectal cancer diagnosed +/-3 months ago. Surgery performed. Patient had been in STR. Patient and family in agreement with starting palliative radiation; patients physical conditon was so poor today that she opted not to go to treatment. While both surgery and oncology are suggesting comfort or hospice care, patient and family are not yet ready to surrender. Patient seen along with Dr. Pedroza and Dr. Rivera; patients brother was at bedside at wanting to know "when would she be better". Patients daughter is Healthcare Proxy; will contact her to make her aware of available social work services
--- NOTE | 2017-10-20 10:36 | Miscellaneous Note ---
Social Work Assessment/Plan Social Work Assessment/Plan: Palliative care Consult received. EHR reviewed, and case discussed with Dr. Pedroza, [facility] resident and RN. Patient has had a marked deterioration over the past 48 hours. Sepsis is suspected; source unknown. Patient with rectal cancer diagnosed +/-3 months ago. Surgery performed. Patient had been in STR. Patient and family in agreement with starting palliative radiation; patients physical conditon was so poor today that she opted not to go to treatment. While both surgery and oncology are suggesting comfort or hospice care, patient and family are not yet ready to surrender. Patient seen along with Dr. Pedroza and Dr. Rivera; patients brother was at bedside at wanting to know "when would she be better". Patients daughter is Healthcare Proxy; will contact her to make her aware of available social work services NOTE ENTERED BY: Danielle Schumacher DATE/TIME ENTERED:10/20/171029 REPORT NUMBER:[id number] CONFIDENTIAL, DO NOT COPY WITHOUT APPROPRIATE AUTHORIZATION.
[2017-10-20 11:12] LABS: PTT 53 SEC (25-37)
[2017-10-20 16:00] VITALS: BP 130/60
--- NOTE | 2017-10-20 16:16 | PN- Infect Dx ---
Subjective Subjective: Afebrile. She complains of abdominal pain and generalized weakness. Objective Last 24 Hrs of Vital Signs/I&O Vital Signs Date Time Temp Pulse Resp B/P B/P Pulse O2 O2 Flow FiO2 Mean Ox Delivery Rate 10/20 1200 100 Nasal 2.0L Cannula 10/20 0800 97.9 88 20 124/60 98 Nasal 2.0L Cannula 10/20 0800 98 Nasal 2.0L Cannula 10/20 0400 99 Nasal 2.0L Cannula 10/20 0000 99 Nasal 2.0L Cannula 10/20 0000 96.9 87 18 126/70 99 Nasal 2.0L Cannula 10/19 2000 97 Nasal 2.0L Cannula Intake & Output 10/20 1600 10/20 0800 10/20 0000 Intake Total 736 7218 755 Output Total 470 360 315 Balance 266 6858 440 Intake, IV 686 7218 755 Intake, Oral 50 0 Number 1 Bowel Movements Output, 250 Drainage Output, Other 400 300 Output, Urine 70 60 65 Physical Exam Other Physical Findings: She is weak and chronically ill-appearing but in no acute distress Lungs are clear anteriorly Heart regular rhythm with no murmur Abdomen is obese, soft, mildly tender on palpation, with no guarding or rebound, with positive bowel sounds; colostomy in place with stool in the bag Extremities 3+ edema both lower extremities; 1+ edema both upper extremities Blake catheter remains in place Results Last 24 Hours of Lab Results: Laboratory Tests 10/20 10/20 10/20 1000 0515 0115 Chemistry Sodium (137 - 145 mmol/L) 141 Potassium (3.5 - 5.1 mmol/L) 4.0 Chloride (98 - 107 mmol/L) 116 H Carbon Dioxide (22 - 30 mmol/L) 19 L Anion Gap (5 - 16) 7 BUN (7 - 17 mg/dL) 29 H Creatinine (0.5 - 1.0 mg/dL) 1.3 H Estimated GFR (>60 ml/min) 40 L Glucose (65 - 99 mg/dL) 144 H Calcium (8.4 - 10.2 mg/dL) 7.2 L Phosphorus (2.5 - 4.5 mg/dL) 2.9 Magnesium (1.6 - 2.3 mg/dL) 1.5 L Total Bilirubin (0.2 - 1.3 mg/dL) 1.2 AST (14 - 36 U/L) 47 H ALT (9 - 52 U/L) 35 Albumin (3.5 - 5.0 g/dL) 1.5 L Coagulation APTT (25 - 37 SEC) 53 H 59 H 37 Hematology CBC w Diff MAN DIFF ORDERED WBC (4.8 - 10.8 /CUMM) 11.5 H RBC (4.20 - 5.40 /CUMM) 3.39 L Hgb (12.0 - 16.0 G/DL) 8.5 L Hct (37 - 47 %) 26.5 L MCV (81.0 - 99.0 FL) 78.1 L MCH (27.0 - 31.0 PG) 25.0 L MCHC (33.0 - 37.0 G/DL) 32.0 L RDW (11.5 - 14.5 %) 23.5 H Plt Count (130 - 400 /CUMM) 111 L MPV (7.4 - 10.4 FL) 8.7 Gran % (42.2 - 75.2 %) 89.1 H Lymphocytes % (20.5 - 51.1 %) 8.8 L Monocytes % (1.7 - 9.3 %) 1.4 L Eosinophils % (0 - 5 %) 0.7 Basophils % (0.0 - 2.0 %) 0 Absolute Granulocytes (1.4 - 6.5 /CUMM) 10.3 H Segmented Neutrophils (42.2 - 75.2 %) 87 H Band Neutrophils (0.0 - 5.0 %) 1 Absolute Lymphocytes (1.2 - 3.4 /CUMM) 1.0 L Lymphocytes (20.5 - 51.1 %) 5 L Monocytes (1.7 - 9.3 %) 6 Absolute Monocytes (0.10 - 0.60 /CUMM) 0.2 Eosinophils (0 - 5.0 %) 1 Absolute Eosinophils (0.0 - 0.7 /CUMM) 0.1 Absolute Basophils (0.0 - 0.2 /CUMM) 0 Platelet Estimate (ADEQUATE) ADEQUATE Polychromasia 1+ Hypochromic-Microcytic 1+ Poikilocytosis 1+ Anisocytosis 1+ Microcytic Cells 1+ Ovalocytes 1+ Other Body Source Fld Total RBCs Counted (%) 100 Last 24 Hours of Tha Results: No recent cultures Assessment/Plan ID Impression: Overall condition remains poor, with little hope for recovery, in this patient with metastatic adenocarcinoma of the rectum. She remains afebrile with a slight increase in her white blood cell count today, of unclear significance, now off antibiotics after 1 week of treatment with Vancomycin and Ceftazidime for possible MRSA pneumonia and Klebsiella UTI. Her platelet count continues to increase off of the Lovenox and on the Argatroban. She and her family have continued to decline hospice despite recommendations by Oncology and her other physicians. Suggestion: 1. Remove Blake catheter 2. Further management of her overall care per Medicine/Oncology 3. Continue to follow off antibiotics
--- NOTE | 2017-10-20 18:52 | Event Note ---
Event Note Event Note: Patient's family wants to feed patient while she is upright but she was continuously coughing on eating yogurt. Aspiration risk were discussed with family and patient. It was assured that patient and family understand the aspiration risk and she wants to take those risks.
[2017-10-20 23:08] LABS: PTT 63 SEC (25-37)
[2017-10-21] VITALS: BP 138/80
[2017-10-21 03:21] LABS: ABSOLUTE BASOPHIL COUNT 0 /CUMM (0.0-0.2); ABSOLUTE EOSINOPHIL COUNT 0.1 /CUMM (0.0-0.7); ABSOLUTE GRANULOCYTE CT 11.3 /CUMM (1.4-6.5); ABSOLUTE LYMPH COUNT 1.2 /CUMM (1.2-3.4); ABSOLUTE MONOCYTE COUNT 0.8 /CUMM (0.10-0.60); BASOPHIL % 0.2 % (0.0-2.0); EOSINOPHIL % 0.6 % (0-5); GRANULOCYTE % 84.4 % (42.2-75.2); HEMATOCRIT 27.1 % (37-47); MEAN CORPUSCULAR HGB 24.6 PG (27.0-31.0); MEAN CORPUSCULAR HGB CONC 31.1 G/DL (33.0-37.0); MEAN CORPUSCULAR VOLUME 78.9 FL (81.0-99.0); MEAN PLATELET VOLUME 8.1 FL (7.4-10.4); PLATELET COUNT 141 /CUMM (130-400); RBC DISTRIBUTION WIDTH 24.6 % (11.5-14.5); RED BLOOD CELL CT 3.43 /CUMM (4.20-5.40); WHITE BLOOD CELL COUNT 13.4 /CUMM (4.8-10.8)
[2017-10-21 03:25] LABS: PTT 47 SEC (25-37)
--- NOTE | 2017-10-21 07:59 | PN- Oncology ---
Subjective Subjective: She feels "okay." She has no new symptoms. Review of Systems: Constitutional: Denies: chills, fever. HEENT: Reports: sore throat. Cardiovascular: Denies: chest pain. Respiratory: Reports: short of breath. cough. Gastrointestinal: Reports: abdominal pain (suprapubic). Neurological/Psychological: Reports: confusion. All Other Systems: Reviewed and Negative Objective Vital Signs and I&Os Vital Signs Date Time Temp Pulse Resp B/P B/P Pulse O2 O2 Flow FiO2 Mean Ox Delivery Rate 10/21 0400 99 Nasal 2.0L Cannula 10/21 0000 99 Nasal 2.0L Cannula 10/21 0000 97.2 88 16 138/80 99 Nasal 2.0L Cannula 10/20 2000 97 Nasal 2.0L Cannula 10/20 1600 100 Nasal 2.0L Cannula 10/20 1600 97.0 88 18 130/60 100 Nasal 2.0L Cannula 10/20 1200 100 Nasal 2.0L Cannula 10/20 0800 97.9 88 20 124/60 98 Nasal 2.0L Cannula 10/20 0800 98 Nasal 2.0L Cannula Intake & Output 10/21 0800 10/21 0000 10/20 1600 10/20 0800 10/20 0000 10/19 1600 Intake Total 380 848 0989 755 890.1 Output Total 1060 470 360 315 250 Balance -014 836 9437 440 640.1 Intake, IV 569 133 9149 755 890.1 Intake, Oral 80 50 0 Number 1 Bowel Movements Output, 250 Drainage Output, Other 400 300 200 Output, Stool 50 Output, Urine 1010 70 60 65 50 Physical Exam: General Appearance: alert, awake, mild distress, obese, somnolent Eyes: Bilateral: PERRL. Ears, Nose, Throat: normal pharynx, throat tender to palpation Respiratory: rhonchi, quiet respiration, intermittent cough, decrease breath sound anteriorly Cardiovascular: tachycardia, no murmurs Gastrointestinal: normal bowel sounds, tenderness, LLQ colostomy in place, abdominal bag in place with clear and yellow fluid : edwards in place. Dark urine. Extremities: upper and lower extremity edema 3+ throughout Neurologic/Psych: awake, alert, oriented, slow to answer questions. Current Medications: Current Medications Sig/Rose Start time Last Medication Dose Route Stop Time Status Admin Argatroban 250 MG Q24H 10/17 929 10/17 Sodium Chloride 250 ML IV 1420 Benzonatate 100 MG TID 10/09 2100 AC 10/20 PO 211 Dextrose/Sodium 1,000 ML Q6H 10/20 0800 [place] 10/20 Chloride IV 10/20 195 2329 Guaifenesin 10 ML Q6P PRN 10/09 2014 AC 10/10 PO 0524 Levothyroxine Sodium 12.5 MCG DAILY 10/14 0900 AC 10/20 IV 1044 Magnesium Sulfate 1 GM ONCE ONE 10/20 0815 DC 10/20 Dextrose/Water 100 ML IV 10/20 1214 0834 Morphine Sulfate 2 MG ONCE ONE 10/20 204 DC 10/20 IV 10/20 Morphine Sulfate 2 MG Q4P PRN 10/12 1115 10/20 IV 2034 Ondansetron HCl 4 MG Q8P PRN 10/06 1845 AC 10/12 IV 1147 Pantoprazole Sodium 40 MG DAILY 10/13 0900 10/20 IV 0808 Polyethylene Glycol 17 GM DAILY PRN 10/08 1145 10/10 PO 0856 Potassium Phosphate 15 mMol ONE ONE 10/20 0815 [place] 10/20 Dextrose/Water 250 ML IV 10/20 1219 0957 Senna/Docusate Sodium 2 TAB DAILY PRN 10/11 0900 10/15 PO 0951 Vitamin A/Vitamin D 1 BROWN BID 10/20 2100 10/20 TOP 2113 Vitamin A/Vitamin D 1 BROWN BID 10/11 1300 DC 10/20 TOP 0809 Zinc Oxide 1 BROWN BID 10/11 1300 DC 10/19 TOP 2114 Results Last 24 Hours of Lab Results: Laboratory Tests 10/21 10/20 10/20 0250 2250 1000 Chemistry Sodium (137 - 145 mmol/L) 143 Potassium (3.5 - 5.1 mmol/L) 4.1 Chloride (98 - 107 mmol/L) 117 H Carbon Dioxide (22 - 30 mmol/L) 16 L Anion Gap (5 - 16) 10 BUN (7 - 17 mg/dL) 30 H Creatinine (0.5 - 1.0 mg/dL) 1.5 H Estimated GFR (>60 ml/min) 34 L Glucose (65 - 99 mg/dL) 167 H Calcium (8.4 - 10.2 mg/dL) 7.3 L Phosphorus (2.5 - 4.5 mg/dL) 3.5 Magnesium (1.6 - 2.3 mg/dL) 1.7 Total Bilirubin (0.2 - 1.3 mg/dL) 1.2 AST (14 - 36 U/L) 51 H ALT (9 - 52 U/L) 35 Albumin (3.5 - 5.0 g/dL) 1.5 L Coagulation APTT (25 - 37 SEC) 47 H 63 H 53 H Hematology CBC w Diff MAN DIFF ORDERED WBC (4.8 - 10.8 /CUMM) 13.4 H RBC (4.20 - 5.40 /CUMM) 3.43 L Hgb (12.0 - 16.0 G/DL) 8.4 L Hct (37 - 47 %) 27.1 L MCV (81.0 - 99.0 FL) 78.9 L MCH (27.0 - 31.0 PG) 24.6 L MCHC (33.0 - 37.0 G/DL) 31.1 L RDW (11.5 - 14.5 %) 24.6 H Plt Count (130 - 400 /CUMM) 141 MPV (7.4 - 10.4 FL) 8.1 Gran % (42.2 - 75.2 %) 84.4 H Lymphocytes % (20.5 - 51.1 %) 9.0 L Monocytes % (1.7 - 9.3 %) 5.8 Eosinophils % (0 - 5 %) 0.6 Basophils % (0.0 - 2.0 %) 0.2 Absolute Granulocytes (1.4 - 6.5 /CUMM) 11.3 H Segmented Neutrophils (42.2 - 75.2 %) 93 H Absolute Lymphocytes (1.2 - 3.4 /CUMM) 1.2 Lymphocytes (20.5 - 51.1 %) 4 L Monocytes (1.7 - 9.3 %) 3 Absolute Monocytes (0.10 - 0.60 /CUMM) 0.8 H Absolute Eosinophils (0.0 - 0.7 /CUMM) 0.1 Absolute Basophils (0.0 - 0.2 /CUMM) 0 Platelet Estimate (ADEQUATE) ADEQUATE Polychromasia 1+ Hypochromic-Microcytic 1+ Poikilocytosis 1+ Anisocytosis 1+ Microcytic Cells 1+ Ovalocytes 1+ Other Body Source Fld Total RBCs Counted (%) 100 Assessment/Plan Assessment/Recommendations: Ms. 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 She was seen in radiation oncology office and was noted to be in severe pain. She was sent to for evaluation. On admission, she was noted to be somnolent and hypoglycemic. Hypoglycemic has improved. She remains critically ill with poor prognosis. She remains afebrile. She is off antibiotics. Thrombocytopenia has improved to 141,000 on argatroban and off enoxaparin. Heparin product should be avoided. Oral anticoagulant may be started after platelet count >150,000. Again, overal prognosis is poor given diffuse metastatic disease and poor performance status. Patient and family wish to pursue aggressive measure at the moment. She is not a candidate for chemotherapy. I have recommended focus on comfort and supportive care. Thrombocytopenia secondary to heparin: -improving -avoid all heparin product -continue argatroban drip RUE DVT: -continue argatroban drip -can switch to oral if platelet count >150,000 GARIMA: -possible prerenal -management as per primary Metastatic rectal cancer: -f/u outpatient -recommended DNR/DNI and hospice Please call [phone] with any questions or concerns. Problem List: 1. DVT (deep venous thrombosis) 2. Thrombocytopenia 3. Metastatic disease 4. Rectal carcinoma 5. Metastases to the liver 6. GARIMA (acute kidney injury)
[2017-10-21 08:00] VITALS: BP 120/70
--- NOTE | 2017-10-21 08:54 | PN- Resident CRCU ---
Heather Mota 10/21/17 0853: Subjective HPI/CRCU Issues: sepsis--- resolved(MRSA pneumonia, UTI) -HI T/HAT--- on argatroban drip -Thrombocytopenia----resolving -Hypoglycemia--- resolved -Right upper extremity venous thrombus in the setting of heparin induced thrombocytopenia and underlying malignancy -Metabolic encephalopathy -Metastatic rectal cancer with metastasis to liver and lung, was on palliative radiation currently on hold due to her poor functioning status to be transferred -poor oral intake/nutritional deficiency 24 Hour Events: Was seen and examined this morning. Patient was continuously coughing and choking on her own saliva. She still wants to try some ice cream. She remained hemodynamically stable but had leukocyte count is trending up from 11.5-13.4 now. Patient has they poor peripheral access and at the moment she has 1 peripheral access. His creatinine is also trending up and is 1.5 today. Objective Vital Signs & I&O Last 8 Hrs of Vitals and I&O: Laboratory Tests 10/21 10/20 0250 2250 Chemistry Sodium (137 - 145 mmol/L) 143 Potassium (3.5 - 5.1 mmol/L) 4.1 Chloride (98 - 107 mmol/L) 117 H Carbon Dioxide (22 - 30 mmol/L) 16 L Anion Gap (5 - 16) 10 BUN (7 - 17 mg/dL) 30 H Creatinine (0.5 - 1.0 mg/dL) 1.5 H Estimated GFR (>60 ml/min) 34 L Glucose (65 - 99 mg/dL) 167 H Calcium (8.4 - 10.2 mg/dL) 7.3 L Phosphorus (2.5 - 4.5 mg/dL) 3.5 Magnesium (1.6 - 2.3 mg/dL) 1.7 Total Bilirubin (0.2 - 1.3 mg/dL) 1.2 AST (14 - 36 U/L) 51 H ALT (9 - 52 U/L) 35 Albumin (3.5 - 5.0 g/dL) 1.5 L Coagulation APTT (25 - 37 SEC) 47 H 63 H Hematology CBC w Diff MAN DIFF ORDERED WBC (4.8 - 10.8 /CUMM) 13.4 H RBC (4.20 - 5.40 /CUMM) 3.43 L Hgb (12.0 - 16.0 G/DL) 8.4 L Hct (37 - 47 %) 27.1 L MCV (81.0 - 99.0 FL) 78.9 L MCH (27.0 - 31.0 PG) 24.6 L MCHC (33.0 - 37.0 G/DL) 31.1 L RDW (11.5 - 14.5 %) 24.6 H Plt Count (130 - 400 /CUMM) 141 MPV (7.4 - 10.4 FL) 8.1 Gran % (42.2 - 75.2 %) 84.4 H Lymphocytes % (20.5 - 51.1 %) 9.0 L Monocytes % (1.7 - 9.3 %) 5.8 Eosinophils % (0 - 5 %) 0.6 Basophils % (0.0 - 2.0 %) 0.2 Absolute Granulocytes (1.4 - 6.5 /CUMM) 11.3 H Segmented Neutrophils (42.2 - 75.2 %) 93 H Absolute Lymphocytes (1.2 - 3.4 /CUMM) 1.2 Lymphocytes (20.5 - 51.1 %) 4 L Monocytes (1.7 - 9.3 %) 3 Absolute Monocytes (0.10 - 0.60 /CUMM) 0.8 H Absolute Eosinophils (0.0 - 0.7 /CUMM) 0.1 Absolute Basophils (0.0 - 0.2 /CUMM) 0 Platelet Estimate (ADEQUATE) ADEQUATE Polychromasia 1+ Hypochromic-Microcytic 1+ Poikilocytosis 1+ Anisocytosis 1+ Microcytic Cells 1+ Ovalocytes 1+ Other Body Source Fld Total RBCs Counted (%) 100 Exam General Appearance: lethargic but arousable with verbal, aunts and answering questions appropriately Head: atraumatic Respiratory: chest non-tender, no respiratory distress Cardiovascular: regular rate/rhythm, edema Gastrointestinal: soft, non-tender, ostomy bag and ascitic fluid bag in place Extremities: bilateral 3+ lower extremity edema Central Line Site: none PICC Site: none Blake Still Needed? Yes Current Medications: Current Medications Sig/Rose Start time Last Medication Dose Route Stop Time Status Admin Argatroban 250 MG Q24H 10/17 0930 AC 10/17 Sodium Chloride 250 ML IV 1420 Benzonatate 100 MG TID 10/09 2100 AC 10/20 PO 2112 Dextrose/Sodium 1,000 ML Q13H 10/21 1300 AC Chloride IV Dextrose/Sodium 1,000 ML Q6H 10/20 0800 DC 10/20 Chloride IV 10/20 Guaifenesin 10 ML Q6P PRN 10/09 2015 AC 10/10 PO 0524 Levothyroxine Sodium 12.5 MCG DAILY 10/14 0900 AC 10/21 IV 0826 Magnesium Sulfate 1 GM ONCE ONE 10/21 1300 AC Dextrose/Water 100 ML IV 10/21 1659 Morphine Sulfate 2 MG ONCE ONE 10/20 204 DC 10/20 IV 10/20 Morphine Sulfate 2 MG Q4P PRN 10/12 1115 AC 10/20 IV 203 Ondansetron HCl 4 MG Q8P PRN 10/06 184 AC 10/12 IV 1147 Pantoprazole Sodium 40 MG DAILY 10/13 0900 AC 10/21 IV 0826 Polyethylene Glycol 17 GM DAILY PRN 10/08 1145 AC 10/10 PO 0856 Senna/Docusate Sodium 2 TAB DAILY PRN 10/11 0900 AC 10/15 PO 0951 Vitamin A/Vitamin D 1 BROWN BID 10/20 2100 AC 10/21 TOP 0827 Vitamin A/Vitamin D 1 BROWN BID 10/11 1300 DC 10/20 TOP 0809 Zinc Oxide 1 BROWN BID 10/11 1300 DC 10/19 TOP 2114 Antibiotics Antibiotics? none Impression/Plan Impression/Problem List Impression: adri Russo is a 76-year-old woman with PMHx of 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 Montoya), coronary artery disease status post stents, type 2 diabetes, hypothyroidism hyperlipidemia, hypertension who was brought to the hospital after she was found to have severe back pain and altered mental status and found to have had hypoglycemia upto 22 mg/dl at the time of presentation which could have resulted in altered mentation. She was transferred to ICU for management of hypoglycemia and altered mental status. On presentation, vital signs were T 98.3, HR 84, RR 22, BP 109/53, saturating 100% on room air. Laboratories worsening and for white blood cell count 17.5, hemoglobin 10.5, platelets 68, MCV 75.7, sodium 132, chloride 97, BUN 22, glucose 22, calcium 7.5, albumin 1.9, AST 501, ALT 92, alkaline phosphatase 2012. Chest x-ray showed stable pattern nodule start the right and left lung compatible with history of pulmonary metastatic disease with no superimposed acute process. Head CT showed scattered chronic small vessel ischemic changes within the periventricular white matter with no evidence of acute infarct or hemorrhage. MRSA bronchitis She was treated for MRSA bronchitis with vancomycin for 7 days. Her white cell count came down within normal range but his yesterday her white cell count again rising up from 11.5 today it's 13.4. Of note patient is continuously very high risk for aspiration and at this point when family was aware of risk but still they were trying to feed her on her own wish she probably is aspirating food on top of aspirating saliva. Speech and swallow evaluation personnel discussed with her regarding. Swallow study but as patient is not able to/refusing to sit upright for long time that probably not a possible choice. Patient was asked multiple times for tube feeding and she adamantly refused to get NG tube. Multiple family meetings were held regarding further of goals of care and still family wants to do everything including prone line if needed for prolonged antibiotic course and there also thinking four-part antral nutrition which is not medically recommended at this point given her metastatic cancer. Klebsiella UTI she completed a course of Ceftaz for 7 days Borderline hypotension Takes quinapril at home for hypertension, held the medication given her borderline blood pressure 90/50 at the time of admission. She received adequate hydration. After which blood pressure continued to improve. Her blood pressure remained stable at around 110-120 throughout her stay. Can continue her home medication at the time of discharge. Doesn't require any central line or vasopressor management. Anemia Guaiac positive stools, given history of rectal cancer and recent surgery. Hemoglobin and hematocrit remained stable without significant drop. No active signs of bleeding were found. 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 His workup was negative however. She was restarted on enoxaparin and her platelets again declined. Hematology is recommending to avoid heparin at this time. Platelets this morning are 141,000. She will go back to [facility] once her platelets came back in normal range. More than 150,000 -No heparin or heparin products and future -Closer monitoring for any bleeding. Monitor platelet count daily- Hypoglycemia Resolved, we will monitor with Accu-Cheks 3 times a day and at bedtime stage IV rectal cancer with liver and lung metastasis status post colectomy and colostomy She was seen in consultation by radiation oncologist on 09/29/17 for her known stage IV rectal carcinoma with widespread metastatic disease. She is status post diverting colostomy on 09/26/17 and was subsequently discharged to an extended care facility. She continues with pain presumably from the rectal mass. She has expressed her desire to move forward with palliative radiation therapy. Palliative external beam radiation treatments will therefore proceed as planned. A total of 10 fractions (3000 cGy) is being prescribed. She has received two treatments only 10/10/17. and 10/11/2017 History of rectal cancer, would need a discussion about goals of care. Palliative specialist Dr. Pedroza on board. He spoke with patient and her daughter at bedside in detail about goals of care and change of CODE STATUS. Patient and patient's family wants to rethink about the CODE STATUS. No chemotherapy planned at this time until she begins functionality. she will be discharged to [facility]. Abdominal wound: The patient has a bag on her abdomen that is draining ascitic fluid from a chronic abdominal wound. This puts her at risk for infection. pending colorectal surgery evaluation----- Dysphagia: Patient reported difficulty swallowing, concern for aspiration. Patient feels swallow elevation almost every single day per family and patient are willing to take the chance of aspiration and want to eat for as comfort feeding. Patient and family were updated in detail regarding the risks of aspiration with feeding. Other medical problems Hypothyroidism continued iv levothyroxine 12.5 g Hyperlipidemia -stopped Lipitor History of diabetes mellitus- Accu-Cheks. Held home meds given hypoglycemia Hypertension - held home medication quinalapril given hypotension at time of admission Coronary artery disease status post stents Problem List: 1. Malnutrition 2. GARIMA (acute kidney injury) 3. DVT (deep venous thrombosis) 4. Colostomy in place Pain Ratin Tomorrow's Labs & Rationales: CbC and basic electrolyte panel Plan DVT/Prophylaxis: mechanical Code Status: Full Code Dennis Hunter MD 10/21/175: Attending MD Review Statement Attending Sign Off Attending Cosign Statement: I have: examined this patient, reviewed avalbl EMR data, discussd w/resident/PA/ DIRECTOR OF ELEMENTARY EDUCATION, discussed mgmt plan w/nicolle, discussed mgmt plan w/CM, discussed mgmt plan w/ pt, agreed w/resident/PA/DIRECTOR OF ELEMENTARY EDUCATION, amended to note. Other Findings: The patient was seen and discussed with house staff, nursing, family (son), Palliative Care (Dr. Pedroza), and case management. Had lengthy discussion with the patient and her son and group regarding goals of care, code status, etc. Will remain full code at present. Speech therapy was also present. Son understands risk of aspiration with swallowing. WBC slightly increased and patient is at risk of aspiration again. Platelet count rising. OK to downgrade to general medicine at present. We have a peripheral IV in right arm (same side as prior clot).
--- NOTE | 2017-10-21 10:54 | PN- Infect Dx ---
Subjective Subjective: Afebrile. She continues to have a cough, which is nonproductive. Her urine output is decreasing. Objective Last 24 Hrs of Vital Signs/I&O Vital Signs Date Time Temp Pulse Resp B/P B/P Pulse O2 O2 Flow FiO2 Mean Ox Delivery Rate 10/21 0800 96.9 78 20 120/70 98 Nasal 2.0L Cannula 10/21 0800 100 Nasal 2.0L Cannula 10/21 0400 99 Nasal 2.0L Cannula 10/21 0000 99 Nasal 2.0L Cannula 10/21 0000 97.2 88 16 138/80 99 Nasal 2.0L Cannula 10/20 2000 97 Nasal 2.0L Cannula 10/20 1600 100 Nasal 2.0L Cannula 10/20 1600 97.0 88 18 130/60 100 Nasal 2.0L Cannula 10/20 1200 100 Nasal 2.0L Cannula Intake & Output 10/21 1600 10/21 0800 10/21 0000 Intake Total 786 886 Output Total 608 1060 Balance 178 -174 Intake, IV 786 806 Intake, Oral 80 Output, Other 500 Output, Stool 40 50 Output, Urine 68 1010 Physical Exam Other Physical Findings: She appears chronically ill but in no acute distress Lungs are clear Heart regular rhythm with no murmur Abdomen is obese, soft, nontender with positive bowel sounds; colostomy with formed stool, with a ostomy bag in place with clear fluid Extremities 2+ edema both lower extremities Blake catheter remains in place Results Last 24 Hours of Lab Results: Laboratory Tests 10/21 10/20 0250 2250 Chemistry Sodium (137 - 145 mmol/L) 143 Potassium (3.5 - 5.1 mmol/L) 4.1 Chloride (98 - 107 mmol/L) 117 H Carbon Dioxide (22 - 30 mmol/L) 16 L Anion Gap (5 - 16) 10 BUN (7 - 17 mg/dL) 30 H Creatinine (0.5 - 1.0 mg/dL) 1.5 H Estimated GFR (>60 ml/min) 34 L Glucose (65 - 99 mg/dL) 167 H Calcium (8.4 - 10.2 mg/dL) 7.3 L Phosphorus (2.5 - 4.5 mg/dL) 3.5 Magnesium (1.6 - 2.3 mg/dL) 1.7 Total Bilirubin (0.2 - 1.3 mg/dL) 1.2 AST (14 - 36 U/L) 51 H ALT (9 - 52 U/L) 35 Albumin (3.5 - 5.0 g/dL) 1.5 L Coagulation APTT (25 - 37 SEC) 47 H 63 H Hematology CBC w Diff MAN DIFF ORDERED WBC (4.8 - 10.8 /CUMM) 13.4 H RBC (4.20 - 5.40 /CUMM) 3.43 L Hgb (12.0 - 16.0 G/DL) 8.4 L Hct (37 - 47 %) 27.1 L MCV (81.0 - 99.0 FL) 78.9 L MCH (27.0 - 31.0 PG) 24.6 L MCHC (33.0 - 37.0 G/DL) 31.1 L RDW (11.5 - 14.5 %) 24.6 H Plt Count (130 - 400 /CUMM) 141 MPV (7.4 - 10.4 FL) 8.1 Gran % (42.2 - 75.2 %) 84.4 H Lymphocytes % (20.5 - 51.1 %) 9.0 L Monocytes % (1.7 - 9.3 %) 5.8 Eosinophils % (0 - 5 %) 0.6 Basophils % (0.0 - 2.0 %) 0.2 Absolute Granulocytes (1.4 - 6.5 /CUMM) 11.3 H Segmented Neutrophils (42.2 - 75.2 %) 93 H Absolute Lymphocytes (1.2 - 3.4 /CUMM) 1.2 Lymphocytes (20.5 - 51.1 %) 4 L Monocytes (1.7 - 9.3 %) 3 Absolute Monocytes (0.10 - 0.60 /CUMM) 0.8 H Absolute Eosinophils (0.0 - 0.7 /CUMM) 0.1 Absolute Basophils (0.0 - 0.2 /CUMM) 0 Platelet Estimate (ADEQUATE) ADEQUATE Polychromasia 1+ Hypochromic-Microcytic 1+ Poikilocytosis 1+ Anisocytosis 1+ Microcytic Cells 1+ Ovalocytes 1+ Other Body Source Fld Total RBCs Counted (%) 100 Last 24 Hours of Tha Results: No recent cultures Assessment/Plan ID Impression: Overall condition continues to deteriorate, with little hope for recovery, in this patient with metastatic adenocarcinoma of the rectum. She remains afebrile but her white blood cell count is increasing, as is her creatinine, with a decrease in her urine output also noted. Her IV access is also becoming an issue and, if plans are to continue aggressive treatment, a Pro-Line will need to be considered. She has now been off antibiotics for 2 days after 1 week of treatment with Vancomycin and Ceftazidime for possible MRSA pneumonia and Klebsiella UTI, and the possibility of a recurrent or new infection must be considered. Am reluctant to subject her to further testing, such as cultures, imaging and intervention for IV access but, if she and her family continue to decline hospice, which has been recommended by Oncology, this will need to be considered. Suggestion: 1. Await decision regarding overall level of care 2. Reevaluation of her medications in view of her increasing creatinine 3. Will need to pursue evaluation for her increasing white blood cell count and creatinine as well as IV access as noted above if plan to continue aggressive management 4. Continue to follow off antibiotics pending above Katie Carmona MD is covering over the weekend
[2017-10-21 15:45] LABS: PTT 54 SEC (25-37)
[2017-10-21 16:00] VITALS: BP 138/68
[2017-10-22] VITALS: BP 130/60
[2017-10-22 04:06] LABS: ABSOLUTE BASOPHIL COUNT 0 /CUMM (0.0-0.2); ABSOLUTE EOSINOPHIL COUNT 0.1 /CUMM (0.0-0.7); ABSOLUTE GRANULOCYTE CT 13.7 /CUMM (1.4-6.5); ABSOLUTE LYMPH COUNT 1.2 /CUMM (1.2-3.4); ABSOLUTE MONOCYTE COUNT 0.8 /CUMM (0.10-0.60); BASOPHIL % 0.1 % (0.0-2.0); EOSINOPHIL % 0.5 % (0-5); GRANULOCYTE % 86.3 % (42.2-75.2); HEMATOCRIT 28.3 % (37-47); MEAN CORPUSCULAR HGB 24.8 PG (27.0-31.0); MEAN CORPUSCULAR HGB CONC 31.2 G/DL (33.0-37.0); MEAN CORPUSCULAR VOLUME 79.5 FL (81.0-99.0); MEAN PLATELET VOLUME 8.6 FL (7.4-10.4); PLATELET COUNT 159 /CUMM (130-400); RBC DISTRIBUTION WIDTH 24.5 % (11.5-14.5); RED BLOOD CELL CT 3.56 /CUMM (4.20-5.40); WHITE BLOOD CELL COUNT 15.9 /CUMM (4.8-10.8)
[2017-10-22 04:18] LABS: PTT 47 SEC (25-37)
--- NOTE | 2017-10-22 06:20 | PN- Resident CRCU ---
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 She was on wasn't this morning, and stated that she did not have any complains. She continues to have cough, but improved compared to yesterday. She did not have any pain, shortness of breath, chest discomfort, lightheadedness. Stated that she had good appetite, and wanted to eat applesauce. She remained stable overnight. She has been downgraded to [facility] medical service. Vitals: Tm 98.1 Pulse rate in the range of 88-99, respiratory rate in the range of 18-20 Blood pressure : systolic 120-138 Diastolic 60-70 Pulse ox 95% on room air. Objective Vital Signs & I&O Last 8 Hrs of Vitals and I&O: Laboratory Tests 10/22 10/21 0330 1500 Chemistry Sodium (137 - 145 mmol/L) 145 Potassium (3.5 - 5.1 mmol/L) 4.2 Chloride (98 - 107 mmol/L) 120 H Carbon Dioxide (22 - 30 mmol/L) 16 L Anion Gap (5 - 16) 9 BUN (7 - 17 mg/dL) 32 H Creatinine (0.5 - 1.0 mg/dL) 1.7 H Estimated GFR (>60 ml/min) 29 L BUN/Creatinine Ratio (7 - 25 %) 18.8 Coagulation APTT (25 - 37 SEC) 47 H 54 H Hematology CBC w Diff MAN DIFF ORDERED WBC (4.8 - 10.8 /CUMM) 15.9 H RBC (4.20 - 5.40 /CUMM) 3.56 L Hgb (12.0 - 16.0 G/DL) 8.8 L Hct (37 - 47 %) 28.3 L MCV (81.0 - 99.0 FL) 79.5 L MCH (27.0 - 31.0 PG) 24.8 L MCHC (33.0 - 37.0 G/DL) 31.2 L RDW (11.5 - 14.5 %) 24.5 H Plt Count (130 - 400 /CUMM) 159 MPV (7.4 - 10.4 FL) 8.6 Gran % (42.2 - 75.2 %) 86.3 H Lymphocytes % (20.5 - 51.1 %) 7.8 L Monocytes % (1.7 - 9.3 %) 5.3 Eosinophils % (0 - 5 %) 0.5 Basophils % (0.0 - 2.0 %) 0.1 Absolute Granulocytes (1.4 - 6.5 /CUMM) 13.7 H Absolute Lymphocytes (1.2 - 3.4 /CUMM) 1.2 Absolute Monocytes (0.10 - 0.60 /CUMM) 0.8 H Absolute Eosinophils (0.0 - 0.7 /CUMM) 0.1 Absolute Basophils (0.0 - 0.2 /CUMM) 0 Platelet Estimate (ADEQUATE) ADEQUATE Hypochromic-Microcytic 1+ Exam General Appearance: awake Other Physical Findings: General Exam: AAOx3, pale, No acute distress, Skin: No rashes, no breakdown; HEENT: PERRLA, EOMI;Neck: Supple, No JVD; No cervical lymphadenopathy; CVS: Reg Rate, Normal S1,S2, No MGR;Resp: Normal air entry, no ronchi/rales;Abdomen: Soft , No tenderness, Normal Bowel Sounds, has Colostomy bag in place with loose stool; and also has a bag around the skin ulcer on the abdomen which has been accumulating the serous discharge;Neuro: Normal Speech, Strength 4/5 b/l x 4 extremities likely from deconditioning but symmetrical, Sensation intact, CN III -XII NL, Reflexes 2+;Extremities: No cyanosis, bilateral 2+ pedal edema Current Medications: Current Medications Sig/Rose Start time Last Medication Dose Route Stop Time Status Admin Argatroban 250 MG Q24H 10/17 0930 AC 10/22 Sodium Chloride 250 ML IV 1019 Benzonatate 100 MG TID 10/09 2099 AC 10/20 PO 2111 Dextrose/Sodium 1,000 ML Q13H 10/21 1300 AC 10/22 Chloride IV 2254 Guaifenesin 10 ML Q6P PRN 10/09 2014 AC 10/10 PO 05 Levothyroxine Sodium 0.025 MG DAILY AC 10/23 0700 AC PO Levothyroxine Sodium 12.5 MCG DAILY 10/14 0900 DC 10/22 IV 10/22 2300 1020 Morphine Sulfate 2 MG Q4P PRN 10/12 1115 AC 10/22 IV 2130 Ondansetron HCl 4 MG Q8P PRN 10/06 1845 AC 10/12 IV 1147 Pantoprazole Sodium 40 MG DAILY 10/13 0900 AC 10/22 IV 1019 Polyethylene Glycol 17 GM DAILY PRN 10/08 1145 AC 10/10 PO 0856 Senna/Docusate Sodium 2 TAB DAILY PRN 10/11 0900 AC 10/15 PO 0951 Vitamin A/Vitamin D 1 BROWN BID 10/20 2100 AC 10/22 TOP 2156 Impression/Plan Impression/Problem List Impression: Ms Russo is a 76-year-old woman with PMHx of 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 Montoya), coronary artery disease status post stents, type 2 diabetes, hypothyroidism hyperlipidemia, hypertension who was brought to the hospital after she was found to have severe back pain and altered mental status and found to have had hypoglycemia upto 22 mg/dl at the time of presentation which could have resulted in altered mentation. She was transferred to ICU for management of hypoglycemia and altered mental status, and was transferred back to Gen. medicine service after stabilizing her clinically. Since she had heparin associated/heparin-induced thrombocytopenia and needed a Argatroban drip and so was transferred back to intensive care unit for further monitoring. Pertient lab findings in the last 24 hrs: W BC 9.9 (10/19/2017)-->15.9 (10/22/2017) (86.3 granulocytosis). Hemoglobin 8.9(10/19/2017)-->8.8 (10/22/2017) Platelets 71(10/19/2017)-->159(10/22/2017) HCO3 16, chloride 120 (likely acidosis from fluids). BUN 28(10/19/2017)-->32 (10/22/2017) Creatinine 1.2(10/19/2017)-->1.7 (10/22/2017) MRSA bronchitis: She was treated for MRSA bronchitis with vancomycin for 7 days. Currently off antibiotics. Currently has leukocytosis, which is worsening compared to yesterday. Of note patient is continuously very high risk for aspiration and at this point when family was aware of risk but still they were trying to feed her on her own wish she probably is aspirating food on top of aspirating saliva. Speech and swallow evaluation personnel discussed with her regarding. Swallow study but as patient is not able to/refusing to sit upright for long time that probably not a possible choice. Patient was asked multiple times for tube feeding and she adamantly refused to get NG tube. Multiple family meetings were held regarding further of goals of care and still family wants to do everything including prone line if needed for prolonged antibiotic course and there also thinking PE nutrition which is not medically recommended at this point given her metastatic cancer. Klebsiella UTI she completed a course of Ceftaz for 7 days Borderline hypotension Takes quinapril at home for hypertension, held the medication given her borderline blood pressure 90/50 at the time of admission. She received adequate hydration. After which blood pressure continued to improve. Her blood pressure remained stable at around 110-120 throughout her stay. Can continue her home medication at the time of discharge. Doesn't require any central line or vasopressor management. Anemia Guaiac positive stools, given history of rectal cancer and recent surgery. Hemoglobin and hematocrit remained stable without significant drop. No active signs of bleeding were found. 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 His workup was negative however. She was restarted on enoxaparin and her platelets again declined. Hematology is recommending to avoid heparin at this time. Platelets this morning are 141,000. Can change it back to a newer anticoagulant, prefereably Eliquis given her renal insufficiency after platelets are above 150,000. Would defer the decision to the warp dresser at this time. Await recommendation. No Xarelto at this time. -No heparin or heparin products and future -Closer monitoring for any bleeding. Monitor platelet count daily- Hypoglycemia Resolved, we will monitor with Accu-Cheks 3 times a day and at bedtime stage IV rectal cancer with liver and lung metastasis status post colectomy and colostomy She was seen in consultation by radiation oncologist on 09/29/17 for her known stage IV rectal carcinoma with widespread metastatic disease. She is status post diverting colostomy on 09/26/17 and was subsequently discharged to an extended care facility. She continues with pain presumably from the rectal mass. She has expressed her desire to move forward with palliative radiation therapy. Palliative external beam radiation treatments will therefore proceed as planned. A total of 10 fractions (3000 cGy) is being prescribed. She has received two treatments only 10/10/17. and 10/11/2017 History of rectal cancer, would need a discussion about goals of care. Palliative specialist Dr. Pedroza on board. He spoke with patient and her daughter at bedside in detail about goals of care and change of CODE STATUS. Patient and patient's family wants to rethink about the CODE STATUS. No chemotherapy planned at this time until she begins functionality. she will be discharged to [facility]. Dysphagia: Patient reported difficulty swallowing, concern for aspiration. Patient feels swallow elevation almost every single day per family and patient are willing to take the chance of aspiration and want to eat for as comfort feeding. Patient and family were updated in detail regarding the risks of aspiration with feeding. Other medical problems Hypothyroidism continued iv levothyroxine 12.5 g Hyperlipidemia -stopped Lipitor History of diabetes mellitus- Accu-Cheks. Held home meds given hypoglycemia Hypertension - held home medication quinalapril given hypotension at time of admission Coronary artery disease status post stents Problem List: 1. GARIMA (acute kidney injury) 2. Pneumonia 3. Metastatic disease 4. Colostomy in place Pain Ratin Tomorrow's Labs & Rationales: back, abdomen Plan DVT/Prophylaxis: mechanical Code Status: Full Code Fredrick Fajardo MD 10/22/17 1055: Attending MD Review Statement Attending Sign Off Attending Cosign Statement: I have: examined this patient, reviewed avalbl EMR data, personally reviewd images, discussd w/resident/PA/HOOK UP DRIVER, discussed mgmt plan w/nicolle, discussed mgmt plan w/CM, discussed mgmt plan w/pt, agreed w/resident/PA/HOOK UP DRIVER, amended to note. Other Findings: Fredrick East M.D. have examined this patient, reviewed available EMR data, personally reviewed images, discussed with resident/PA/HOOK UP DRIVER, discussed management plan with housestaff and nursing staff, discussed managment plan all of healthcare providers, discussed management plan with patient and/or family, agreed with resident/PA/HOOK UP DRIVER. The past history and parts of the chart have been autopopulated. Impression 76 year old woman * metastatic disease to the liver from rectal ca * MRSA pna and Klebsiella UTI - completed abx * RUE DVT * Thrombocytopenia * GARIMA Plan -argatroban gtt, f/u heme recs, will not begin xarelto given renal clearance, will await PO recommendations from heme non-urgently -f/u goals of care, will be revisited early next week, palliative care consultation is appreciated -off abx -continue hydration -check renal usg and monitor creatinine -synthroid for hypothyroidism DVT prophylaxis at all times GM hold
[2017-10-22 07:00] VITALS: BP 120/56
--- NOTE | 2017-10-22 10:57 | PN- Palliative Care ---
Subjective Subjective: Patient/family meeting held for 1 hour to discuss goals of care. Attendes included patient, son, Dr. Hunter, Dr. Pedroza, housestaff, nursing. Patient/family updated with her current condition specifically focussing on current challenge for patient to obtain adequate, sustaining nutrition. She specifically rejects NGT placement. Patient is also disinclined to consider PEG tubes as well. We disussed potential need for vascular access given current goals of life in place which include life-prolonging therapy in setting of cardiopulmonary arrest. At this time, major impediments/concerns include patient 's inability to safely manage oral intake (and for that matter oral secretions). Speech evaluations confirm ongoing aspiration. Patient is observed to cough with oral intake, but does not demonstrate extreme distress. Nursing staff and speech therapy have expressed their concerns surrounding ongoing oral intake in setting of known aspiration risk. Patient indicates that while she is limiting certain aspects of her care (use of NGT/PEG) she is fearful of consenting to any limitation of treatment especially at the end of life (as would be the case with cardiac arrest) and is unable to consent to a DNR or DNI order at this time. Additional discussion with son (alone) indicates that he is aware that the current challenges to care for his mother are her inability to pursue any states limitations of care. He shares that her goal is really to just return home - even in this means that her life will end soon after. To that end, he believe that his mother's inability to consent to a DNR order stems from this belief/ goal. To that end, we discussed the concept of comfort based care - but without the placement of a DNR/DNI order. I shared with him the idea that a DNR order is not required for the pursuit of a hospice based plan of care - and while this is seemingly in direct conflict, it may in fact be ethically justifiable - that is, the concept that an individual has the right to choose a comfort only plan of care, but passively declines to consent to a DNR/DNI order. We did discuss that under those circumstances, at end of life, resuscitative measures would be initiated, and with a reasonable assessment of futility AT THAT TIME, such efforts would be appropriately discontinued. The more complicated aspect is respiratory failure in the setting of aspiration - however, in the patient's case, she is likely to experience aspiration of oral secretions - not just oral intake. I have advised that I will speak with appropriate hospital personnel to gain additional insight on these matters. Objective Last 24 Hrs of Vital Signs/I&O Vital Signs Date Time Temp Pulse Resp B/P B/P Pulse O2 O2 Flow FiO2 Mean Ox Delivery Rate 10/22 0800 95 Room Air 10/22 0700 97.0 88 18 120/56 95 Room Air 10/22 0000 93 Room Air 10/22 0000 97.4 88 20 130/60 93 Room Air 10/21 1600 96 Room Air 10/21 1600 98.1 99 18 138/68 96 Room Air Intake & Output 10/22 1600 10/22 0800 10/22 0000 Intake Total 512 606 Output Total 330 150 Balance 182 456 Intake, IV 512 606 Intake, Oral 0 Output, 300 150 Drainage Output, Stool 0 Output, Urine 30 0 Physical Exam: ill appearing, obese, in bed awake and alert, speech fluent, expresses understanding of her current condition (B) LE edema Current Medications Current Medications: Current Medications Sig/Rose Start time Last Medication Dose Route Stop Time Status Admin Argatroban 250 MG Q24H 10/17 0930 AC 10/22 Sodium Chloride 250 ML IV 1019 Benzonatate 100 MG TID 10/09 2100 AC 10/20 PO 211 Dextrose/Sodium 1,000 ML Q13H 10/21 1300 AC 10/22 Chloride IV 1019 Guaifenesin 10 ML Q6P PRN 10/09 2014 AC 10/10 PO 0524 Levothyroxine Sodium 0.025 MG DAILY AC 10/23 0700 AC PO Levothyroxine Sodium 12.5 MCG DAILY 10/14 09 AC 10/22 IV 10/22 2300 1020 Magnesium Sulfate 1 GM ONCE ONE 10/21 1300 DC 10/21 Dextrose/Water 100 ML IV 10/21 1659 1258 Morphine Sulfate 2 MG Q4P PRN 10/12 1115 AC 10/21 IV 2111 Ondansetron HCl 4 MG Q8P PRN 10/06 1845 AC 10/12 IV 1147 Pantoprazole Sodium 40 MG DAILY 10/13 09 AC 10/22 IV 1019 Polyethylene Glycol 17 GM DAILY PRN 10/08 1145 AC 10/10 PO 0856 Senna/Docusate Sodium 2 TAB DAILY PRN 10/11 09 AC 10/15 PO 0951 Vitamin A/Vitamin D 1 BROWN BID 10/20 2100 AC 10/22 TOP 1026 Diagnostic Data Lab/Micro/Pathology Results: Laboratory Tests 10/22/17 0330: Anion Gap 9, Estimated GFR 29 L, BUN/Creatinine Ratio 18.8, APTT 47 H, CBC w Diff MAN DIFF ORDERED, RBC 3.56 L, MCV 79.5 L, MCH 24.8 L, MCHC 31.2 L, RDW 24.5 H, MPV 8.6, Gran % 86.3 H, Lymphocytes % 7.8 L, Monocytes % 5.3, Eosinophils % 0.5, Basophils % 0.1, Absolute Granulocytes 13.7 H, Absolute Lymphocytes 1.2, Absolute Monocytes 0.8 H, Absolute Eosinophils 0.1, Absolute Basophils 0, Platelet Estimate ADEQUATE, Hypochromic-Microcytic 1+ 10/21/17 1500: APTT 54 H Assessment/Plan Assessment end stage rectal cancer, dysphagia Patient's Condition: critical Prognosis: poor Treatment Preferences: 1. Continue to aggressively treat reversible conditions 2. Ongoing discussions with family re: resuscitation, intubation 3. Supportive care to patient, family 4. Will have hospice meet with family to assess logistics of home hospice 5. Will speak with administration/ethics committee to explore conflicts in goals /tx 6. Pastoral care to meet regularly with patient for counseling, support
--- NOTE | 2017-10-22 15:22 | ULTRASOUND REPORT ---
EXAMINATION: US RETROPERITONEAL COMPLETE (RENAL) CLINICAL INFORMATION: Worsening renal function.. COMPARISON: CT abdomen/pelvis 01/24/2012. TECHNIQUE: Real-time imaging of the kidneys and bladder. FINDINGS: RIGHT KIDNEY: Right kidney measures 11.8 x 5.4 x 5.1 cm (SAG x AP x TRV). The kidney is normal in size, contour, and echogenicity. Renal cortical thickness is normal. No calculi or focal parenchymal lesions. No hydronephrosis. LEFT KIDNEY: Limited evaluation due to patient body habitus, portable technique and placement of a left-sided colostomy bag. The left kidney measures 10.9 x 6.7 x 6.7 cm (SAG x AP x TRV). The kidney is normal in size, contour, and echogenicity. Renal cortical thickness is normal. Small cyst in the upper pole measuring 2.2 x 2.5 x 2.8 cm. No hydronephrosis. BLADDER: Not visualized. Blake catheter in place. IMPRESSION: No obstruction or hydronephrosis. Small left renal cyst. Otherwise unremarkable sonographic evaluation of the kidneys.
[2017-10-22 15:43] LABS: PTT 63 SEC (25-37)
[2017-10-22 16:00] VITALS: BP 130/60
[2017-10-23 03:40] LABS: ABSOLUTE BASOPHIL COUNT 0 /CUMM (0.0-0.2); ABSOLUTE EOSINOPHIL COUNT 0 /CUMM (0.0-0.7); ABSOLUTE GRANULOCYTE CT 13.7 /CUMM (1.4-6.5); ABSOLUTE LYMPH COUNT 1.2 /CUMM (1.2-3.4); ABSOLUTE MONOCYTE COUNT 0.7 /CUMM (0.10-0.60); BASOPHIL % 0.2 % (0.0-2.0); EOSINOPHIL % 0.1 % (0-5); GRANULOCYTE % 87.2 % (42.2-75.2); HEMATOCRIT 26.6 % (37-47); MEAN CORPUSCULAR HGB 24.8 PG (27.0-31.0); MEAN CORPUSCULAR HGB CONC 30.9 G/DL (33.0-37.0); MEAN CORPUSCULAR VOLUME 80.3 FL (81.0-99.0); MEAN PLATELET VOLUME 8.8 FL (7.4-10.4); PLATELET COUNT 174 /CUMM (130-400); RED BLOOD CELL CT 3.31 /CUMM (4.20-5.40)
[2017-10-23 03:55] LABS: WHITE BLOOD CELL COUNT 15.7 /CUMM (4.8-10.8)
[2017-10-23 04:04] LABS: PTT > 120 SEC (25-37)
[2017-10-23 08:00] VITALS: BP 136/58
--- NOTE | 2017-10-23 08:41 | PN- Resident CRCU ---
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 she did not have any complains. She continues to have cough, but improved compared to yesterday. She did not have any pain, shortness of breath, chest discomfort, lightheadedness. Stated that she had good appetite, and wanted to eat applesauce. She remained stable overnight. She has been downgraded to general [facility] medical service. Vitals: Tm 98.1 Pulse rate in the range of 88-99, respiratory rate in the range of 18-20 Blood pressure : systolic 120-138 Diastolic 60-70 Pulse ox 95% on room air. Objective Vital Signs & I&O Last 8 Hrs of Vitals and I&O: Intake & Output 10/23 1600 Intake Total 663.2 Output Total 600 Balance 63.2 Intake, IV 603.2 Intake, Oral 60 Output, Other 550 Output, Urine 50 Exam General Appearance: well developed/nourished, no apparent distress, alert, awake Other Physical Findings: General Exam: AAOx3, pale, No acute distress, Skin: No rashes, no breakdown; HEENT: PERRLA, EOMI;Neck: Supple, No JVD; No cervical lymphadenopathy; CVS: Reg Rate, Normal S1,S2, No MGR;Resp: Normal air entry, no ronchi/rales;Abdomen: Soft , No tenderness, Normal Bowel Sounds, has Colostomy bag in place with loose stool; and also has a bag around the skin ulcer on the abdomen which has been accumulating the serous discharge;Neuro: Normal Speech, Strength 4/5 b/l x 4 extremities likely from deconditioning but symmetrical, Sensation intact, CN III -XII NL, Reflexes 2+;Extremities: No cyanosis, bilateral 2+ pedal edema Current Medications: Current Medications Sig/Rose Start time Last Medication Dose Route Stop Time Status Admin Argatroban 250 MG Q24H 10/17 929 AC 10/22 Sodium Chloride 250 ML IV 1019 Benzonatate 100 MG TID 10/09 2100 AC 10/23 PO 1031 Dextrose/Sodium 1,000 ML Q13H 10/21 1300 AC 10/23 Chloride IV 1309 Guaifenesin 10 ML Q6P PRN 10/09 2015 AC 10/10 PO 0524 Levothyroxine Sodium 0.025 MG DAILY AC 10/23 0700 AC 10/23 PO 0502 Levothyroxine Sodium 12.5 MCG DAILY 10/14 0900 DC 10/22 IV 10/22 2300 1020 Morphine Sulfate 2 MG Q4P PRN 10/12 1115 AC 10/23 IV 1032 Ondansetron HCl 4 MG Q8P PRN 10/06 1845 AC 10/23 IV 1139 Pantoprazole Sodium 40 MG DAILY 10/13 0900 AC 10/23 IV 1030 Polyethylene Glycol 17 GM DAILY PRN 10/08 1145 AC 10/10 PO 0856 Potassium Chloride 20 MEQ ONCE ONE 10/23 0900 DC 10/23 PO 10/23 0901 1030 Potassium Chloride 20 MEQ ONCE ONE 10/23 0700 CAN PO 10/23 0701 Senna/Docusate Sodium 2 TAB DAILY PRN 10/11 0900 AC 10/15 PO 0951 Vitamin A/Vitamin D 1 BROWN BID 10/20 2100 AC 10/23 TOP 1031 Impression/Plan Impression/Problem List Impression: Ms Russo is a 76-year-old woman with PMHx of 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 Montoya), coronary artery disease status post stents, type 2 diabetes, hypothyroidism hyperlipidemia, hypertension who was brought to the hospital after she was found to have severe back pain and altered mental status and found to have had hypoglycemia upto 22 mg/dl at the time of presentation which could have resulted in altered mentation. She was transferred to ICU for management of hypoglycemia and altered mental status, and was transferred back to Gen. medicine service after stabilizing her clinically. Since she had heparin associated/heparin-induced thrombocytopenia and needed a Argatroban drip and so was transferred back to intensive care unit for further monitoring. Pertient lab findings in the last 24 hrs: W BC 9.9 (10/19/2017)-->15.9 (10/22/2017) (86.3 granulocytosis). Hemoglobin 8.9(10/19/2017)-->8.8 (10/22/2017) Platelets 71(10/19/2017)-->159(10/22/2017) HCO3 16, chloride 120 (likely acidosis from fluids). BUN 28(10/19/2017)-->32 (10/22/2017) Creatinine 1.2(10/19/2017)-->1.7 (10/22/2017) MRSA bronchitis: She was treated for MRSA bronchitis with vancomycin for 7 days. Currently off antibiotics. Currently has leukocytosis, which is worsening compared to yesterday. Of note patient is continuously very high risk for aspiration and at this point when family was aware of risk but still they were trying to feed her on her own wish she probably is aspirating food on top of aspirating saliva. Speech and swallow evaluation personnel discussed with her regarding. Swallow study but as patient is not able to/refusing to sit upright for long time that probably not a possible choice. Patient was asked multiple times for tube feeding and she adamantly refused to get NG tube. Multiple family meetings were held regarding further of goals of care and still family wants to do everything including pro line if needed for prolonged antibiotic course and there also thinking PE nutrition which is not medically recommended at this point given her metastatic cancer. Klebsiella UTI she completed a course of Ceftaz for 7 days Borderline hypotension Takes quinapril at home for hypertension, held the medication given her borderline blood pressure 90/50 at the time of admission. She received adequate hydration. After which blood pressure continued to improve. Her blood pressure remained stable at around 110-120 throughout her stay. Can continue her home medication at the time of discharge. Doesn't require any central line or vasopressor management. Anemia Guaiac positive stools, given history of rectal cancer and recent surgery. Hemoglobin and hematocrit remained stable without significant drop. No active signs of bleeding were found. 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 Her workup was negative however. She was restarted on enoxaparin and her platelets again declined. Hematology is recommending to avoid heparin at this time. Platelets this morning are 174,000. Can change it back to a newer anticoagulant, prefereably Eliquis given her renal insufficiency.Would defer the decision to the facility manager at this time. Await recommendation. No Xarelto at this time. -No heparin or heparin products and future -Closer monitoring for any bleeding. - Monitor platelet count daily - continue argatroban drip pending facility manager recs Hypoglycemia Resolved, we will monitor with Accu-Cheks 3 times a day and at bedtime stage IV rectal cancer with liver and lung metastasis status post colectomy and colostomy She was seen in consultation by radiation oncologist on 09/29/17 for her known stage IV rectal carcinoma with widespread metastatic disease. She is status post diverting colostomy on 09/26/17 and was subsequently discharged to an extended care facility. She continues with pain presumably from the rectal mass. She has expressed her desire to move forward with palliative radiation therapy. Palliative external beam radiation treatments will therefore proceed as planned. A total of 10 fractions (3000 cGy) is being prescribed. She has received two treatments only 10/10/17. and 10/11/2017 History of rectal cancer, would need a discussion about goals of care. Palliative specialist Dr. Pedroza on board. He spoke with patient and her daughter at bedside in detail about goals of care and change of CODE STATUS. Patient and patient's family wants to rethink about the CODE STATUS. No chemotherapy planned at this time until she begins functionality. she will be discharged to [facility]. Dysphagia: Patient reported difficulty swallowing, concern for aspiration. Patient failed swallow evluation almost every single day per family and patient are willing to take the chance of aspiration and want to eat for as comfort feeding. Patient and family were updated in detail regarding the risks of aspiration with feeding. on puree and nectar thick diet Other medical problems Hypothyroidism continued oral levothyroxine 25 g Hyperlipidemia -stopped Lipitor History of diabetes mellitus- Accu-Cheks. Held home meds given hypoglycemia Hypertension - held home medication quinalapril given hypotension at time of admission Coronary artery disease status post stents Problem List: 1. GARIMA (acute kidney injury) 2. Pneumonia 3. UTI (urinary tract infection) Pain Ratin Tomorrow's Labs & Rationales: cbc icu bundle Plan DVT/Prophylaxis: mechanical Code Status: Full Code Fredrick Fajardo MD 10/23/17 1014: Attending MD Review Statement Attending Sign Off Attending Cosign Statement: I have: examined this patient, reviewed [employer] EMR data, personally reviewd images, discussd w/resident/PA/HEALTH SPA MANAGER, discussed mgmt plan w/nicolle, discussed mgmt plan w/CM, discussed mgmt plan w/pt, agreed w/resident/PA/HEALTH SPA MANAGER, amended to note. Other Findings: Fredrick East M.D. have examined this patient, reviewed available EMR data, personally reviewed images, discussed with resident/PA/HEALTH SPA MANAGER, discussed management plan with housestaff and nursing staff, discussed managment plan all of healthcare providers, discussed management plan with patient and/or family, agreed with resident/PA/HEALTH SPA MANAGER. The past history and parts of the chart have been autopopulated. Impression 76 year old woman * metastatic disease to the liver from rectal ca * MRSA pna and Klebsiella UTI - completed abx * RUE DVT * Thrombocytopenia * GARIMA Plan -argatroban gtt, f/u heme recs, will not begin xarelto given renal clearance, will await PO recommendations from heme non-urgently -f/u goals of care, will be revisited early during the week, palliative care consultation is appreciated -off abx -continue hydration -creatinine will be trended -synthroid for hypothyroidism DVT prophylaxis at all times GM hold
[2017-10-23 09:25] LABS: PTT 53 SEC (25-37)
[2017-10-23 12:00] VITALS: BP 114/52
[2017-10-23 13:00] LABS: PTT 52 SEC (25-37)
[2017-10-23 16:00] VITALS: BP 128/72
[2017-10-24] VITALS: BP 142/62
[2017-10-24 00:36] LABS: PTT 50 SEC (25-37)
[2017-10-24 06:45] LABS: ABSOLUTE BASOPHIL COUNT 0 /CUMM (0.0-0.2); ABSOLUTE EOSINOPHIL COUNT 0 /CUMM (0.0-0.7); ABSOLUTE GRANULOCYTE CT 12.4 /CUMM (1.4-6.5); ABSOLUTE LYMPH COUNT 0.8 /CUMM (1.2-3.4); BASOPHIL % 0.1 % (0.0-2.0); EOSINOPHIL % 0.3 % (0-5); GRANULOCYTE % 86.9 % (42.2-75.2); HEMATOCRIT 26.1 % (37-47); MEAN CORPUSCULAR HGB 25.1 PG (27.0-31.0); MEAN CORPUSCULAR HGB CONC 31.1 G/DL (33.0-37.0); MEAN CORPUSCULAR VOLUME 80.7 FL (81.0-99.0); MEAN PLATELET VOLUME 8.7 FL (7.4-10.4); PLATELET COUNT 175 /CUMM (130-400); RED BLOOD CELL CT 3.23 /CUMM (4.20-5.40); WHITE BLOOD CELL COUNT 14.3 /CUMM (4.8-10.8)
--- NOTE | 2017-10-24 07:07 | PN- Resident CRCU ---
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 Pulse ox 97% on room air. Ms Lucas was comfortable this morning. Did not have any new concerns. Stated that she did not have any abdominal pain, back pain. No shortness of breath, chest pain, palpitations. We discussed about goals of care, but she wanted to stay full code. Objective Vital Signs & I&O Last 8 Hrs of Vitals and I&O: Intake & Output 10/24 0800 Intake Total 633 Output Total 210 Balance 423 Intake, IV 633 Output, 150 Drainage Output, Urine 60 Exam General Appearance: alert Other Physical Findings: General Exam: AAOx3, palor, No acute distress, Skin: No rashes;HEENT: PERRLA, EOMI;Neck: Supple, No JVDl; No cervical lymphadenopathy;CVS: Reg Rate, Normal S1 ,S2, No MGR; Resp: Normal air entry, bilateral ronchi and rales;Abdomen: Soft, No tenderness, Normal Bowel Sounds, colostomy bag in place, and also has an ulcer with bag in place for collection, edema extending upto the abdomen;Neuro: Normal Speech, Strength 4/5 b/l x 4 extremities, Sensation intact, CN III-XII NL , Reflexes 2+;Extremities: No cyanosis, pitting pedal edema 2 + Current Medications: Current Medications Sig/Rose Start time Last Medication Dose Route Stop Time Status Admin Albumin Human 25 GM Q8 10/24 1145 AC 10/24 IV 1238 Argatroban 250 MG Q24H 10/17 0930 AC 10/22 Sodium Chloride 250 ML IV 1019 Benzonatate 100 MG TID 10/09 PO 211 Dextrose/Sodium 1,000 ML Q13H 10/21 1300 AC 10/24 Chloride IV 1624 Guaifenesin 10 ML Q6P PRN 10/09 2014 AC 10/10 PO 0524 Levothyroxine Sodium 0.025 MG DAILY AC 10/23 0700 AC 10/24 PO 0607 Morphine Sulfate 2 MG Q4P PRN 10/12 1115 AC 10/23 IV 1032 Ondansetron HCl 4 MG Q8P PRN 10/06 1845 AC 10/23 IV 1139 Pantoprazole Sodium 40 MG DAILY 10/13 09 AC 10/24 IV 1026 Polyethylene Glycol 17 GM DAILY PRN 10/08 1145 AC 10/10 PO 0856 Senna/Docusate Sodium 2 TAB DAILY PRN 10/11 09 AC 10/15 PO 0951 Vitamin A/Vitamin D 1 BROWN BID 10/20 2099 AC 10/24 TOP 1034 Impression/Plan Impression/Problem List Impression: Ms Russo is a 76-year-old woman with PMHx of 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 Montoya), coronary artery disease status post stents, type 2 diabetes, hypothyroidism hyperlipidemia, hypertension who was brought to the hospital after she was found to have severe back pain and altered mental status and found to have had hypoglycemia upto 22 mg/dl at the time of presentation which could have resulted in altered mentation. She was transferred to ICU for management of hypoglycemia and altered mental status, and was transferred back to Gen. medicine service after stabilizing her clinically. Since she had heparin associated/heparin-induced thrombocytopenia and needed a Argatroban drip and so was transferred back to intensive care unit for further monitoring. Pertient lab findings in the last 24 hrs: W BC 9.9 (10/19)-->15.9 (10/22) (86.3 granulocytosis)-->14.3 (10/24) Hemoglobin 8.9(10/19)-->8.8 (10/22)-->8.1(10/24) Platelets 71(10/19)-->159(10/22)-->175(10/24) HCO3 16, chloride 120 (likely acidosis from fluids)-->122(10/24) BUN 28(10/19)-->32 (10/22)-->34(10/24) Creatinine 1.2(10/19)-->1.7 (10/22)-->2.1(10/24) MRSA bronchitis: She was treated for MRSA bronchitis with vancomycin for 7 days. Currently off antibiotics. She has been eating regular diet, against the speech therapists recs, as per the pts family's request. They understand the risks vs benefits. Speech re-evaluation pending. Pt refusing NG tube. Multiple family meetings were held regarding further of goals of care and still family wants to do everything including pro line if needed, for PE nutrition which is not medically recommended at this point given her metastatic cancer. Klebsiella UTI she completed a course of Ceftaz for 7 days Borderline hypotension Takes quinapril at home for hypertension, held the medication given her borderline blood pressure 90/50 at the time of admission. She received adequate hydration. After which blood pressure continued to improve. Her blood pressure remained stable at around 110-120 throughout her stay. Can continue her home medication at the time of discharge. Doesn't require any central line or vasopressor management. Anemia Guaiac positive stools, given history of rectal cancer and recent surgery. Hemoglobin and hematocrit remained stable without significant drop. No active signs of bleeding were found. Thrombocytopenia likely HIT, with negative abs likely heparin-induced: Patient had an initial drop in platelets while on heparin. His workup was negative however. She was restarted on enoxaparin and her platelets again declined. Hematology is recommending to avoid heparin at this time. Given renal insufficiency, new anticoagulants cannot be used in the treatment of DVT in her case. She should be started on warfarin. If any procedures are planned, would start warfarin after the procedure. Given her use of argatroban, which also affects INR, her goal should be INR > 4, which will put her at a higher risk of bleeding. Need to discuss w/ the family. -No heparin or heparin products and future -Closer monitoring for any bleeding. -Monitor platelet count daily Hypoglycemia Resolved, we will monitor with Accu-Cheks 3 times a day and at bedtime stage IV rectal cancer with liver and lung metastasis status post colectomy and colostomy She was seen in consultation by radiation oncologist on 09/29/17 for her known stage IV rectal carcinoma with widespread metastatic disease. She is status post diverting colostomy on 09/26/17 and was subsequently discharged to an extended care facility. She continues with pain presumably from the rectal mass. She has expressed her desire to move forward with palliative radiation therapy. Palliative external beam radiation treatments will therefore proceed as planned. A total of 10 doses (3000 cGy) is being prescribed. She has received two treatments only 10/10/17. and 10/11/2017 History of rectal cancer, would need a discussion about goals of care. Palliative specialist Dr. Pedroza on board. He spoke with patient and her daughter at bedside in detail about goals of care and change of CODE STATUS. Patient and patient's family wants to rethink about the CODE STATUS. No chemotherapy planned at this time until she begins functionality. she will be discharged to [facility]. Dysphagia: Patient reported difficulty swallowing, concern for aspiration. Await recs from the swallow eval. GARIMA: This has been worsening kidney function, likely prerenal in her case due to increasing third spacing and decreased intravascular volume. Other potential causes are vancomycin use acute tubular necrosis. Check random vancomycin level , and if found elevated after discontinuation of vancomycin more than 7 days only would indicate a possible etiology. Start albumin for increasing intravascular volume. Other medical problems Hypothyroidism- Continue LT4 Hyperlipidemia -stopped Lipitor History of diabetes mellitus- Accu-Cheks. Held home meds given hypoglycemia Hypertension - held home medication quinalapril given hypotension at time of admission Coronary artery disease status post stents Problem List: 1. GARIMA (acute kidney injury) 2. Pneumonia Pain Ratin Tomorrow's Labs & Rationales: cbc bep inr Plan DVT/Prophylaxis: mechanical Code Status: Full Code Dennis Hunter MD 10/24/17 7654: Attending MD Review Statement Attending Sign Off Attending Cosign Statement: I have: examined this patient, reviewed [facility] EMR data, personally reviewd images, discussd w/resident/PA/BUS DRIVER/MONITOR, discussed mgmt plan w/nicolle, discussed mgmt plan w/CM, discussed mgmt plan w/pt, agreed w/resident/PA/BUS DRIVER/MONITOR, amended to note. Other Findings: The patient was seen and discussed with house staff. Swallowing better since last week and await swallow eval. GARIMA noted and appreciate Nephrology input. Will give IV albumin and follow. INR elevated on Argatroban. Family and patient wish aggressive care and remains full code. Current IV is in right arm where prior DVT was located. May need another line (?Pro-line). Will get input from heme/onc regarding INR and start Coumadin only after decision regarding line is made. Unclear what overlap with Argatroban is needed with Coumadin.
[2017-10-24 08:00] VITALS: BP 122/58
--- NOTE | 2017-10-24 09:03 | PN- Oncology ---
Subjective Subjective: She denies any new symptoms. She denies any new pain. Breathing is about the same. She feels thristy. She is still undecided on goals of care. Review of Systems Constitutional: Denies: chills, fever. Gastrointestinal: Denies: abdominal pain. Musculoskeletal: Denies: back pain. All Other Systems: Reviewed and Negative Objective Vital Signs and I&Os Vital Signs Date Time Temp Pulse Resp B/P B/P Pulse O2 O2 Flow FiO2 Mean Ox Delivery Rate 10/24 0800 100 Room Air 10/24 0000 98.6 93 20 142/62 95 Room Air 10/24 0000 95 Room Air 10/23 1600 94 Room Air 10/23 1600 97.6 78 18 128/72 94 Room Air 10/23 1200 97.1 88 24 114/52 98 Room Air Intake & Output 10/24 1600 10/24 0800 10/24 0000 10/23 1600 10/23 0800 10/23 0000 Intake Total 633 855 663.2 1084.6 710 Output Total 210 650 350 920 310 Balance 423 205 313.2 164.6 400 Intake, IV 633 615 603.2 604.6 610 Intake, Oral 240 60 480 100 Number 1 Bowel Movements Output, 150 550 250 Drainage Output, Other 550 300 250 Output, Stool 50 100 Output, Urine 60 50 50 20 60 Physical Exam: General Appearance: alert, awake, mild distress, obese Eyes: Bilateral: PERRL. Ears, Nose, Throat: normal pharynx, throat tender to palpation Respiratory: rhonchi, quiet respiration, intermittent cough, decrease breath sound anteriorly Cardiovascular: tachycardia, no murmurs Gastrointestinal: normal bowel sounds, tenderness, LLQ colostomy in place, abdominal bag in place with clear and yellow fluid : edwards in place. Dark urine. Extremities: upper and lower extremity edema 3+ throughout Neurologic/Psych: awake, alert, oriented, slow to answer questions. Current Medications: Current Medications Sig/Rose Start time Last Medication Dose Route Stop Time Status Admin Argatroban 250 MG Q24H 10/17 0930 AC 10/22 Sodium Chloride 250 ML IV 1019 Benzonatate 100 MG TID 10/09 2099 AC 10/23 PO 2112 Dextrose/Sodium 1,000 ML Q13H 10/21 1300 AC 10/24 Chloride IV 0206 Guaifenesin 10 ML Q6P PRN 10/09 2014 AC 10/10 PO 0524 Levothyroxine Sodium 0.025 MG DAILY AC 10/23 0700 AC 10/24 PO 0607 Morphine Sulfate 2 MG Q4P PRN 10/12 1115 AC 10/23 IV 1032 Ondansetron HCl 4 MG Q8P PRN 10/06 1845 AC 10/23 IV 1139 Pantoprazole Sodium 40 MG DAILY 10/13 0900 AC 10/23 IV 1030 Polyethylene Glycol 17 GM DAILY PRN 10/08 1145 AC 10/10 PO 0856 Potassium Chloride 20 MEQ ONCE ONE 10/23 09 DC 10/23 PO 10/23 0901 1030 Senna/Docusate Sodium 2 TAB DAILY PRN 10/11 09 AC 10/15 PO 0951 Vitamin A/Vitamin D 1 BROWN BID 10/20 2100 10/23 [facility] 2112 Results Last 24 Hours of Lab Results: Laboratory Tests 10/24 10/23 10/23 0515 2355 1130 Chemistry Sodium (137 - 145 mmol/L) 145 Potassium (3.5 - 5.1 mmol/L) 4.6 Chloride (98 - 107 mmol/L) 122 H Carbon Dioxide (22 - 30 mmol/L) 15 L Anion Gap (5 - 16) 8 BUN (7 - 17 mg/dL) 34 H Creatinine (0.5 - 1.0 mg/dL) 2.1 H Estimated GFR (>60 ml/min) 23 L Glucose (65 - 99 mg/dL) 154 H Calcium (8.4 - 10.2 mg/dL) 7.6 L Phosphorus (2.5 - 4.5 mg/dL) 4.4 Magnesium (1.6 - 2.3 mg/dL) 1.8 Total Bilirubin (0.2 - 1.3 mg/dL) 1.1 AST (14 - 36 U/L) 57 H ALT (9 - 52 U/L) 31 Albumin (3.5 - 5.0 g/dL) 1.4 L Coagulation APTT (25 - 37 SEC) 50 H 52 H Hematology CBC w Diff MAN DIFF ORDERED WBC (4.8 - 10.8 /CUMM) 14.3 H RBC (4.20 - 5.40 /CUMM) 3.23 L Hgb (12.0 - 16.0 G/DL) 8.1 L Hct (37 - 47 %) 26.1 L MCV (81.0 - 99.0 FL) 80.7 L MCH (27.0 - 31.0 PG) 25.1 L MCHC (33.0 - 37.0 G/DL) 31.1 L RDW (11.5 - 14.5 %) 27.0 H Plt Count (130 - 400 /CUMM) 175 MPV (7.4 - 10.4 FL) 8.7 Gran % (42.2 - 75.2 %) 86.9 H Lymphocytes % (20.5 - 51.1 %) 5.9 L Monocytes % (1.7 - 9.3 %) 6.8 Eosinophils % (0 - 5 %) 0.3 Basophils % (0.0 - 2.0 %) 0.1 Absolute Granulocytes (1.4 - 6.5 /CUMM) 12.4 H Segmented Neutrophils (42.2 - 75.2 %) 94 H Band Neutrophils (0.0 - 5.0 %) 1 Absolute Lymphocytes (1.2 - 3.4 /CUMM) 0.8 L Lymphocytes (20.5 - 51.1 %) 4 L Monocytes (1.7 - 9.3 %) 1 L Absolute Monocytes (0.10 - 0.60 /CUMM) 1.0 H Absolute Eosinophils (0.0 - 0.7 /CUMM) 0 Absolute Basophils (0.0 - 0.2 /CUMM) 0 Platelet Estimate (ADEQUATE) ADEQUATE Polychromasia 1+ Hypochromic-Microcytic 1+ Poikilocytosis 1+ Anisocytosis 1+ Microcytic Cells 1+ Ovalocytes 1+ Other Body Source Fld Total RBCs Counted (%) 100 Assessment/Plan Assessment/Recommendations: Ms. 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 She was seen in radiation oncology office and was noted to be in severe pain. She was sent to [facility] for evaluation. On admission, she was noted to be somnolent and hypoglycemic. Hypoglycemic has improved. She remains critically ill with poor prognosis. Thrombocytopenia has resolved. She may be placed back on oral anticoagulation. Given worsening renal dysfunction, warfarin may be the only feasible agent for the patient. Once again, I discussed goals of care with the patient. Patient does not seems to be interested in discussion. She has poor prognosis and is not a candidate for therapy. I have recommended hospice with focus on comfort. Thrombocytopenia secondary to heparin: -avoid all heparin product -transition to oral (warfarin given worsening renal dysfunction) RUE DVT: -transition to oral anticoagulant GARIMA: -worsening -management as per primary Metastatic rectal cancer: -f/u outpatient -recommended DNR/DNI and hospice Please call [phone] with any questions or concerns. Problem List: 1. GARIMA (acute kidney injury) 2. DVT (deep venous thrombosis) 3. Metastases to the liver 4. Rectal carcinoma
--- NOTE | 2017-10-24 12:35 | Cons- Nephrology ---
General Information and HPI Consulting Request Date of Consult: 10/24/17 Requested By: Dennis Hunter MD History of Present Illness: Ms. Lynch is an unfortunate 77 yo F with metastatic rectal cancer who was admitted on October 06 with severe rectal pain. Early in her course she had gotten ketorolac (NSAID 10/07) and CTA (contrast 10/11). Admission Cr was 0.8 ( range 0.5-0.8 this admission) but funmilayo to 1.1 on 10/18 then 1.2 and 1.3 over the next two days. Cr was 1/5 on 10/21 and 2.1 today . She has had minimal po intake and has been maintained on low dose IVF. She has been oligoanuric (< 300 cc/day ) other than 10/20 when 1100 cc urine recorded?. She was treated with IV vancomycin from 10/11 to 10/18 along with ceftazidime for SOB and presumed pneumonia. Allergies/Medications Allergies: Coded Allergies: heparin (Severe, Thrombocytopenia 10/17/17) shellfish derived (Intermediate, G.I. DISTRESS FROM SCALLOPS 09/14/17) Home Med List: Atorvastatin Calcium 40 MG TABLET 1 TAB PO DAILY CHOLESTROL (Reported) Glimepiride 4 MG TABLET 1 TAB PO DAILY DM (Reported) Levothyroxine Sodium 25 MCG TABLET 1 TAB PO DAILY THYROID (Reported) Multivitamin (Daily Multiple Vitamin) 1 EACH TABLET 1 TAB PO DAILY VITAMIN SUPPORT (Reported) Oxycodone HCl/Acetaminophen (Percocet 5-325 MG Tablet) 5 MG-325 MG TABLET 1-2 TAB PO Q4-6 PRN PAIN Quinapril HCl 20 MG TABLET 1 TAB PO DAILY HTN (Reported) Sitagliptin Phos/Metformin HCl (Janumet 50-1,000 MG Tablet) 50 MG-1,000 MG TABLET 1 TAB PO BID DM (Reported) Review of Systems Review of Systems: As in HPI. Pt c/o thirst otherwise negative Past History Travel History Traveled to [place] past 21 day No Medical History Neurological: NONE EENT: NONE Cardiovascular: CAD (s/p stents), hypertension, hyperlipidemia, HEART MURMUR Respiratory: NONE Gastrointestinal: COLORECTAL CANCER Hepatic: mets to liver/lung Renal: nephrolithiasis Musculoskeletal: NONE Psychiatric: NONE Endocrine: diabetes, hypothyroidism, obesity Blood Disorders: NONE Cancer(s): colon/rectal cancer COORDINATOR OF EVALUATION/Reproductive: NONE Surgical History Surgical History: non-contributory Family History Relations & Conditions If Any: FATHER FH: heart disease MOTHER FH: cancer of digestive organ BROTHER FH: heart attack SISTER FHx: lung cancer BROTHER Psychosocial History Where Do You Live? Senior Living Facility Who Do You Live With? self Primary Language: Guyanese Smoking Status: Former Smoker ETOH Use: denies use Living Will? unknown Power of Manager Of International/HCP? unknown Functional Ability ADLs Needs Assist: dressing, eating, toileting, bathing. IADLs Needs Assist: shopping, housework, finances, food prep, telephone, transportation, medication admin. Employment History Employment: Retired Exam & Diagnostic Data Vital Signs and I&O Ill appearing F in ICU 122/58 90 97.4 Skin neg rash Eyes anicteric ENT dry membranes Neck neg JVD Lungs clear to A Cor RRR Abd soft Ext 2+edema Results Pertinent Lab Results: 145 / 122 / 34 / 4.6 / 15 / 2.1\ Renal U/S no hydro Assessment/Plan Assessment/Recommendations Assessment: GARIMA likely multifactorial. She had received several potentially nephrotoxic agents during this hospitalization but we have normal bloodwork for several days afterwards (NSAIDs on admission, contrast on 10/11) . She has been oliguric and I suspect this is in the setting of intravascular volume depletion despite anasarca (I suspec the anasarca is related to her metastatic cancer). She did get 1 week of Vancomycin (appears to 8 daily doses) but we have no vanco levels and Cr started to rise at the end of this course. This timing makes me suspect the GARIMA is most likely related to vancomycin in the setting of volume depletion. She is clinically volume depleted now but labs and clinical exam suggests this is not all prerenal azotemia. I agree with IVF and colloid as you are doing. Overall prognosis is poor and given metastatic disease she is not an appropriate dialysis candidate should it come to that. Rec: IVF, albumin/blood Vancomycin level No NSAIDs/contrast Thanks will follow Recommendations: .
[2017-10-24 14:06] LABS: PTT 50 SEC (25-37)
[2017-10-24 14:46] LABS: PT 37.2 SEC (9.4-12.5)
[2017-10-24 16:00] VITALS: BP 128/70
--- NOTE | 2017-10-24 16:09 | PN- Infect Dx ---
Subjective Subjective: Afebrile without new complaints. She continues to have a dry cough. Objective Last 24 Hrs of Vital Signs/I&O Vital Signs Date Time Temp Pulse Resp B/P B/P Pulse O2 O2 Flow FiO2 Mean Ox Delivery Rate 10/24 08 97.4 90 20 122/58 99 Room Air 10/24 0800 100 Room Air 10/24 0000 98.6 93 20 142/62 95 Room Air 10/24 0000 95 Room Air Intake & Output 10/24 1600 10/24 0800 10/24 0000 Intake Total 865 633 855 Output Total 245 210 650 Balance 620 423 205 Intake, IV 505 633 615 Intake, Oral 360 240 Output, 150 Drainage Output, Other 150 550 Output, Stool 50 50 Output, Urine 45 60 50 Physical Exam Other Physical Findings: She is awake and alert, chronically ill-appearing, but in no acute distress. Lungs are clear Heart regular rhythm with no murmur Abdomen is soft, nontender with positive bowel sounds Extremities 2+ edema both lower extremities Blake catheter remains in place Results Last 24 Hours of Lab Results: Laboratory Tests 10/24 10/24 10/23 1140 0515 2355 Chemistry Sodium (137 - 145 mmol/L) 145 Potassium (3.5 - 5.1 mmol/L) 4.6 Chloride (98 - 107 mmol/L) 122 H Carbon Dioxide (22 - 30 mmol/L) 15 L Anion Gap (5 - 16) 8 BUN (7 - 17 mg/dL) 34 H Creatinine (0.5 - 1.0 mg/dL) 2.1 H Estimated GFR (>60 ml/min) 23 L Glucose (65 - 99 mg/dL) 154 H Calcium (8.4 - 10.2 mg/dL) 7.6 L Phosphorus (2.5 - 4.5 mg/dL) 4.4 Magnesium (1.6 - 2.3 mg/dL) 1.8 Total Bilirubin (0.2 - 1.3 mg/dL) 1.1 AST (14 - 36 U/L) 57 H ALT (9 - 52 U/L) 31 Albumin (3.5 - 5.0 g/dL) 1.4 L Coagulation PT (9.4 - 12.5 SEC) 37.2 H INR (0.90 - 1.19) 3.37 H APTT (25 - 37 SEC) 50 H 50 H Hematology CBC w Diff MAN DIFF ORDERED WBC (4.8 - 10.8 /CUMM) 14.3 H RBC (4.20 - 5.40 /CUMM) 3.23 L Hgb (12.0 - 16.0 G/DL) 8.1 L Hct (37 - 47 %) 26.1 L MCV (81.0 - 99.0 FL) 80.7 L MCH (27.0 - 31.0 PG) 25.1 L MCHC (33.0 - 37.0 G/DL) 31.1 L RDW (11.5 - 14.5 %) 27.0 H Plt Count (130 - 400 /CUMM) 175 MPV (7.4 - 10.4 FL) 8.7 Gran % (42.2 - 75.2 %) 86.9 H Lymphocytes % (20.5 - 51.1 %) 5.9 L Monocytes % (1.7 - 9.3 %) 6.8 Eosinophils % (0 - 5 %) 0.3 Basophils % (0.0 - 2.0 %) 0.1 Absolute Granulocytes (1.4 - 6.5 /CUMM) 12.4 H Segmented Neutrophils (42.2 - 75.2 %) 94 H Band Neutrophils (0.0 - 5.0 %) 1 Absolute Lymphocytes (1.2 - 3.4 /CUMM) 0.8 L Lymphocytes (20.5 - 51.1 %) 4 L Monocytes (1.7 - 9.3 %) 1 L Absolute Monocytes (0.10 - 0.60 /CUMM) 1.0 H Absolute Eosinophils (0.0 - 0.7 /CUMM) 0 Absolute Basophils (0.0 - 0.2 /CUMM) 0 Platelet Estimate (ADEQUATE) ADEQUATE Polychromasia 1+ Hypochromic-Microcytic 1+ Poikilocytosis 1+ Anisocytosis 1+ Microcytic Cells 1+ Ovalocytes 1+ Other Body Source Fld Total RBCs Counted (%) 100 Toxicology Random Vancomycin (ug/ml) 18.7 Last 24 Hours of Tha Results: No recent cultures Recent Imaging Studies: Renal ultrasound October 22 no obstruction or hydronephrosis Assessment/Plan ID Impression: Overall condition continues to deteriorate, now with renal failure, felt to be most likely secondary to the Vancomycin, which was discontinued 6 days ago, with her Vancomycin level from today still elevated, at 19. She remains afebrile, but her white blood cell count remains elevated, though slightly decreased from yesterday off antibiotics. Her prognosis remains poor, with metastatic adenocarcinoma of the rectum, but she and her family continue to decline hospice , which has been recommended by Oncology. Suggestion: 1. Would continue to pursue hospice with patient and her family 2. Further management of her renal failure per Renal 3. Continue to follow off antibiotics
[2017-10-24 23:38] VITALS: BP 136/58
[2017-10-25 00:34] LABS: PTT 59 SEC (25-37)
[2017-10-25 05:27] LABS: ABSOLUTE BASOPHIL COUNT 0 /CUMM (0.0-0.2); ABSOLUTE EOSINOPHIL COUNT 0.1 /CUMM (0.0-0.7); BASOPHIL % 0.2 % (0.0-2.0); MEAN PLATELET VOLUME 8.4 FL (7.4-10.4); RED BLOOD CELL CT 2.69 /CUMM (4.20-5.40)
[2017-10-25 05:33] LABS: ABSOLUTE GRANULOCYTE CT 7.5 /CUMM (1.4-6.5); ABSOLUTE LYMPH COUNT 0.7 /CUMM (1.2-3.4); ABSOLUTE MONOCYTE COUNT 0.7 /CUMM (0.10-0.60); EOSINOPHIL % 0.8 % (0-5); GRANULOCYTE % 83.3 % (42.2-75.2); HEMATOCRIT 21.7 % (37-47); MEAN CORPUSCULAR HGB 25.2 PG (27.0-31.0); MEAN CORPUSCULAR HGB CONC 31.3 G/DL (33.0-37.0); MEAN CORPUSCULAR VOLUME 80.6 FL (81.0-99.0); PLATELET COUNT 137 /CUMM (130-400); RBC DISTRIBUTION WIDTH 24.5 % (11.5-14.5)
[2017-10-25 05:34] LABS: PT 41.8 SEC (9.4-12.5)
--- NOTE | 2017-10-25 05:40 | PN- Resident CRCU ---
Ravin Adkins 10/25/17 0539: Subjective HPI/CRCU Issues: She was more somnolent today compared to yesterday. She was oriented to time place and person. Vitals remained stable. Temperature 97.9, pulse rate 97, suspicion 18, blood pressure 136/58, pulse ox 95% on room air. Was noted that she had a drop in H&H. Upon examination, it does appear that she may have vaginal bleed. 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 #3 Thrombocytopenia #4 Hypoglycemia #5 Right upper extremity venous thrombus in the setting of heparin induced thrombocytopenia and underlying malignancy #6 Metabolic encephalopathy #7 Metastatic rectal cancer with metastasis to liver and lung, was on palliative radiation currently on hold due to her poor functioning status to be transferred #8 poor oral intake/nutritional deficiency Objective Vital Signs & I&O Last 8 Hrs of Vitals and I&O: Intake & Output 10/25 0800 Intake Total Output Total 475 Balance -475 Output, 475 Drainage Exam General Appearance: no apparent distress Other Physical Findings: General Exam: AOx3, palor, No acute distress, Skin: No rashes;HEENT: PERRLA, EOMI;Neck: Supple, No JVDl; No cervical lymphadenopathy;CVS: Reg Rate, Normal S1 ,S2, No MGR; Resp: Normal air entry, bilateral ronchi and rales;Abdomen: Soft, No tenderness, Normal Bowel Sounds, colostomy bag in place, and also has an ulcer with bag in place for collection, edema extending upto the abdomen;Neuro: Normal Speech, Strength 4/5 b/l x 4 extremities, Sensation intact, CN III-XII NL , Reflexes 2+;Extremities: No cyanosis, pitting pedal edema 2 + Current Medications: Current Medications Sig/Rose Start time Last Medication Dose Route Stop Time Status Admin Albumin Human 25 GM Q8 10/24 1145 AC 10/26 IV 0532 Argatroban 250 MG Q24H 10/17 0930 DC 10/22 Sodium Chloride 250 ML IV 1019 Benzonatate 100 MG TID 10/09 2099 AC 10/23 PO 211 Dextrose/Sodium 1,000 ML Q13H 10/21 1300 DC 10/25 Chloride IV 0652 Guaifenesin 10 ML Q6P PRN 10/09 2014 AC 10/10 PO 0524 Levothyroxine Sodium 0.025 MG DAILY AC 10/23 0700 AC 10/26 PO 0532 Morphine Sulfate 2 MG Q4P PRN 10/12 1115 AC 10/26 IV 0326 Ondansetron HCl 4 MG Q8P PRN 10/06 1845 AC 10/23 IV 1139 Pantoprazole Sodium 40 MG DAILY 10/13 0900 AC 10/25 IV 1246 Polyethylene Glycol 17 GM DAILY PRN 10/08 1145 AC 10/10 PO 0856 Senna/Docusate Sodium 2 TAB DAILY PRN 10/11 09 AC 10/15 PO 0951 Sodium Bicarbonate 100 MEQ Q12H 10/25 1245 AC 10/26 Dextrose/Water 1,000 ML IV 0326 Vitamin A/Vitamin D 1 BROWN BID 10/20 2100 AC 10/25 TOP 2158 Impression/Plan Impression/Problem List Impression: Ms Russo is a 76-year-old woman with PMHx of 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 Montoya), coronary artery disease status post stents, type 2 diabetes, hypothyroidism hyperlipidemia, hypertension who was brought to the hospital after she was found to have severe back pain and altered mental status and found to have had hypoglycemia upto 22 mg/dl at the time of presentation which could have resulted in altered mentation. She was transferred to ICU for management of hypoglycemia and altered mental status, and was transferred back to Gen. medicine service after stabilizing her clinically. Since she had heparin associated/heparin-induced thrombocytopenia and needed a Argatroban drip and so was transferred back to intensive care unit for further monitoring. Pertient lab findings in the last 24 hrs: W BC 9.9 (10/19)-->15.9 (10/22) (86.3 granulocytosis)-->14.3 (10/24)--> 9.0 (10/25) Hemoglobin 8.9(10/19)-->8.8 (10/22)-->8.1(10/24) Platelets 71(10/19)-->159(10/22)-->175(10/24)--118 (10/25) HCO3 16, chloride 120 (likely acidosis from fluids)-->122(10/24) BUN 28(10/19)-->32 (10/22)-->34(10/24) Creatinine 1.2(10/19)-->1.7 (10/22)-->2.1(10/24 and 10/25) Sodium 145 (10/25) HCO3 14, anion gap 9 MRSA bronchitis: She was treated for MRSA bronchitis with vancomycin for 7 days. Currently off antibiotics. She has been eating regular diet, against the speech therapists recs, as per the pts family's request. They understand the risks vs benefits. Speech re-evaluation pending. Pt refusing NG tube. Multiple family meetings were held regarding further of goals of care and still family wants to do everything including pro line if needed, for PE nutrition which is not medically recommended at this point given her metastatic cancer. Klebsiella UTI she completed a course of Ceftaz for 7 days Borderline hypotension Takes quinapril at home for hypertension, held the medication given her borderline blood pressure 90/50 at the time of admission. She received adequate hydration. After which blood pressure continued to improve. Her blood pressure remained stable at around 110-120 throughout her stay. Can continue her home medication at the time of discharge. Doesn't require any central line or vasopressor management. Anemia likely ABLA- Guaiac positive stools, given history of rectal cancer and recent surgery. Hemoglobin and hematocrit remained stable without significant drop. Likely vaginal bleed or rectal bleed. 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 His workup was negative however. She was restarted on enoxaparin and her platelets again declined. Hematology is recommending to avoid heparin at this time. Given renal insufficiency, new anticoagulants cannot be used in the treatment of DVT in her case. She should be started on warfarin. If any procedures are planned, would start warfarin after the procedure. Given her use of argatroban, which also affects INR, her goal should be INR > 4, which will put her at a higher risk of bleeding. Need to discuss w/ the family. An acute drop in H&H could be attributed to vancomycin too, which is possible. -No heparin or heparin products and future -Closer monitoring for any bleeding. -Monitor platelet count daily -Check CT chest, abdomen as per oncology. Hypoglycemia Resolved, we will monitor with Accu-Cheks 3 times a day and at bedtime Stage IV rectal cancer with liver and lung metastasis status post colectomy and colostomy She was seen in consultation by radiation oncologist on 09/29/17 for her known stage IV rectal carcinoma with widespread metastatic disease. She is status post diverting colostomy on 09/26/17 and was subsequently discharged to an extended care facility. She continues with pain presumably from the rectal mass. She has expressed her desire to move forward with palliative radiation therapy. Palliative external beam radiation treatments will therefore proceed as planned. A total of 10 doses (3000 cGy) is being prescribed. She has received two treatments only 10/10/17. and 10/11/2017 History of rectal cancer, would need a discussion about goals of care. Palliative specialist Dr. Pedroza on board. He spoke with patient and her daughter at bedside in detail about goals of care and change of CODE STATUS. Patient and patient's family wants to rethink about the CODE STATUS. No chemotherapy planned at this time until she begins functionality. she will be discharged to [place]. Dysphagia: Patient reported difficulty swallowing, concern for aspiration. Await recs from the swallow eval. GARIMA: This has been worsening kidney function, likely prerenal in her case due to increasing third spacing and decreased intravascular volume. Other potential causes are vancomycin use acute tubular necrosis. Random vancomycin level 18,7 is clearly elevated even after discontinuation of vancomycin more than 7 days only would indicate a possible etiology. Start albumin for increasing intravascular volume. She also has Non anion gap metabolic acidosis which would be tx'ed w/ D5W+HCO3. Other medical problems Hypothyroidism- Continue LT4 Hyperlipidemia -stopped Lipitor History of diabetes mellitus- Accu-Cheks. Held home meds given hypoglycemia Hypertension - held home medication quinalapril given hypotension at time of admission Coronary artery disease status post stents Problem List: 1. Pneumonia 2. GARIMA (acute kidney injury) 3. DVT (deep venous thrombosis) Pain Ratin Tomorrow's Labs & Rationales: cbc bep fibringogen level inr Plan DVT/Prophylaxis: mechanical Code Status: Full Code Dennis Hunter MD 10/25/17 9699: Attending MD Review Statement Attending Sign Off Attending Cosign Statement: I have: examined this patient, reviewed aval EMR data, personally reviewd images, discussd w/resident/PA/GROUP SALES MANAGER, discussed mgmt plan w/nicolle, discussed mgmt plan w/CM, discussed mgmt plan w/pt, agreed w/resident/PA/GROUP SALES MANAGER. Other Findings: The patient was seen and discussed with resident. Concern regarding drop in H/H requiring transfusion and ?vaginal/urethral bleeding. Will hold Argatroban at present. Noted US of RUE showing some residual clot (partly resolved). At this point risk of anticoagulation is great due to bleeding. Renal function today stable (abnormal Cr 2.1). Was sedated this am due to morphine, less sedated in afternoon. MBS showed aspiration again. Discussed with Dr. Abad who felt she should have comfort feeding (even though she is a full code). Maintaining full code status as per patient and family wishes. Will need to address issue of ?Pro -line (cannot place due to INR >4).
[2017-10-25 07:38] LABS: ABSOLUTE BASOPHIL COUNT 0 /CUMM (0.0-0.2); ABSOLUTE EOSINOPHIL COUNT 0.1 /CUMM (0.0-0.7); ABSOLUTE GRANULOCYTE CT 6.6 /CUMM (1.4-6.5); ABSOLUTE LYMPH COUNT 0.7 /CUMM (1.2-3.4); ABSOLUTE MONOCYTE COUNT 0.4 /CUMM (0.10-0.60); BASOPHIL % 0.3 % (0.0-2.0); EOSINOPHIL % 0.8 % (0-5); HEMATOCRIT 20.3 % (37-47); MEAN CORPUSCULAR HGB 25.9 PG (27.0-31.0); MEAN CORPUSCULAR HGB CONC 32.1 G/DL (33.0-37.0); MEAN CORPUSCULAR VOLUME 80.7 FL (81.0-99.0); MEAN PLATELET VOLUME 9.7 FL (7.4-10.4); PLATELET COUNT 118 /CUMM (130-400); RBC DISTRIBUTION WIDTH 25.3 % (11.5-14.5); RED BLOOD CELL CT 2.52 /CUMM (4.20-5.40); WHITE BLOOD CELL COUNT 7.8 /CUMM (4.8-10.8)
[2017-10-25 07:52] LABS: GRANULOCYTE % 84.7 % (42.2-75.2)
[2017-10-25 08:00] VITALS: BP 124/56
--- NOTE | 2017-10-25 10:00 | PN- Oncology ---
Subjective Subjective: She feels tired today. She remains sleepy. She denies any new pain. Review of Systems: Constitutional: Reports: Fatigue, somnolence. Denies: chills, fever. Gastrointestinal: Denies: abdominal pain. Musculoskeletal: Denies: back pain. All Other Systems: Reviewed and Negative Objective Vital Signs and I&Os Vital Signs Date Time Temp Pulse Resp B/P B/P Pulse O2 O2 Flow FiO2 Mean Ox Delivery Rate 10/26 799 97.6 94 20 124/56 94 Room Air 10/25 0000 95 Room Air 10/24 2338 97.9 97 18 136/58 95 Room Air 10/24 1600 97.8 91 20 128/70 97 Room Air 10/24 1600 97 Room Air Intake & Output 10/25 0810/25 0000 10/24 1600 10/24 0810/24 0000 Intake Total 521.6 713.5 865 633 855 Output Total 675 500 245 210 650 Balance -153.4 213.5 620 423 205 Intake, IV 521.6 613.5 505 633 615 Intake, Oral 100 360 240 Output, 575 250 150 Drainage Output, Other 150 550 Output, Stool 50 200 50 50 Output, Urine 50 50 45 60 50 Physical Exam: General Appearance: alert, awake, obese, somnolent Eyes: Bilateral: PERRL. Ears, Nose, Throat: neck tender to palpation Respiratory: rhonchi, quiet respiration, intermittent cough, decrease breath sound anteriorly Cardiovascular: tachycardia, no murmurs Gastrointestinal: normal bowel sounds, tenderness, LLQ colostomy in place, abdominal bag in place with clear and yellow fluid : edwards in place. Dark urine. Extremities: upper and lower extremity edema 3+ throughout Neurologic/Psych: awake, alert, oriented, slow to answer questions and more somnolent. Current Medications: Current Medications Sig/Rose Start time Last Medication Dose Route Stop Time Status Admin Albumin Human 25 GM Q8 10/24 1145 AC 10/25 IV 0512 Argatroban 250 MG Q24H 10/17 0930 AC 10/22 Sodium Chloride 250 ML IV 1019 Benzonatate 100 MG TID 10/09 2100 AC 10/23 PO 2112 Dextrose/Sodium 1,000 ML Q13H 10/21 1300 AC 10/25 Chloride IV 0652 Guaifenesin 10 ML Q6P PRN 10/09 2014 AC 10/10 PO 0524 Levothyroxine Sodium 0.025 MG DAILY AC 10/23 0700 AC 10/25 PO 0512 Morphine Sulfate 4 MG .STK-MED ONE 10/24 1302 DC IM 10/24 1303 Morphine Sulfate 2 MG Q4P PRN 10/12 1115 AC 10/25 IV 0513 Ondansetron HCl 4 MG Q8P PRN 10/06 1845 AC 10/23 IV 1139 Pantoprazole Sodium 40 MG DAILY 10/13 0900 AC 10/24 IV 1026 Polyethylene Glycol 17 GM DAILY PRN 10/08 1145 AC 10/10 PO 0856 Senna/Docusate Sodium 2 TAB DAILY PRN 10/11 09 AC 10/15 PO 0951 Vitamin A/Vitamin D 1 BROWN BID 10/20 2100 AC 10/24 TOP 2129 Results Last 24 Hours of Lab Results: Laboratory Tests 10/25 10/25 0643 0500 Chemistry Sodium (137 - 145 mmol/L) 145 Potassium (3.5 - 5.1 mmol/L) 4.4 Chloride (98 - 107 mmol/L) 122 H Carbon Dioxide (22 - 30 mmol/L) 14 L Anion Gap (5 - 16) 9 BUN (7 - 17 mg/dL) 37 H Creatinine (0.5 - 1.0 mg/dL) 2.1 H Estimated GFR (>60 ml/min) 23 L Glucose (65 - 99 mg/dL) 137 H Calcium (8.4 - 10.2 mg/dL) 7.8 L Phosphorus (2.5 - 4.5 mg/dL) 4.1 Magnesium (1.6 - 2.3 mg/dL) 1.7 Total Bilirubin (0.2 - 1.3 mg/dL) 1.5 H AST (14 - 36 U/L) 43 H ALT (9 - 52 U/L) 31 Albumin (3.5 - 5.0 g/dL) 1.8 L Coagulation PT (9.4 - 12.5 SEC) 41.8 H INR (0.90 - 1.19) 3.78 H Fibrinogen Activity (200 - 393 MG/DL) Pending Hematology CBC w Diff NO MAN DIFF REQ MAN DIFF ORDERED WBC (4.8 - 10.8 /CUMM) 7.8 9.0 RBC (4.20 - 5.40 /CUMM) 2.52 L 2.69 L Hgb (12.0 - 16.0 G/DL) 6.5 *L 6.8 *L Hct (37 - 47 %) 20.3 L 21.7 L MCV (81.0 - 99.0 FL) 80.7 L 80.6 L MCH (27.0 - 31.0 PG) 25.9 L 25.2 L MCHC (33.0 - 37.0 G/DL) 32.1 L 31.3 L RDW (11.5 - 14.5 %) 25.3 H 24.5 H Plt Count (130 - 400 /CUMM) 118 L 137 MPV (7.4 - 10.4 FL) 9.7 8.4 Gran % (42.2 - 75.2 %) 84.7 H 83.3 H Lymphocytes % (20.5 - 51.1 %) 8.5 L 8.2 L Monocytes % (1.7 - 9.3 %) 5.7 7.5 Eosinophils % (0 - 5 %) 0.8 0.8 Basophils % (0.0 - 2.0 %) 0.3 0.2 Absolute Granulocytes (1.4 - 6.5 /CUMM) 6.6 H 7.5 H Segmented Neutrophils (42.2 - 75.2 %) 76 H Band Neutrophils (0.0 - 5.0 %) 5 Absolute Lymphocytes (1.2 - 3.4 /CUMM) 0.7 L 0.7 L Lymphocytes (20.5 - 51.1 %) 10 L Monocytes (1.7 - 9.3 %) 6 Absolute Monocytes (0.10 - 0.60 /CUMM) 0.4 0.7 H Eosinophils (0 - 5.0 %) 1 Absolute Eosinophils (0.0 - 0.7 /CUMM) 0.1 0.1 Absolute Basophils (0.0 - 0.2 /CUMM) 0 0 Metamyelocytes (0.0 - 1.0 %) 2 H Platelet Estimate (ADEQUATE) DECREASED Hypochromic-Microcytic 2+ Anisocytosis 1+ Microcytic Cells 1+ Stomatocytes FEW 10/24 10/24 10/24 2335 1140 1134 Coagulation PT (9.4 - 12.5 SEC) 37.2 H Cancelled INR (0.90 - 1.19) 3.37 H Cancelled APTT (25 - 37 SEC) 59 H 50 H Assessment/Plan Assessment/Recommendations: Ms. 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 She was seen in radiation oncology office and was noted to be in severe pain. She was sent to [facility] for evaluation. On admission, she was noted to be somnolent and hypoglycemic. Hypoglycemic has improved. She remains critically ill with poor prognosis. She has worsening anemia and thrombocytopenia. This is new today. Renal injury is stable. LFT demonstrated increasing bilirubin. Mental status is a little worse. She is currently on argatroban. She has not been started on any new medications. She may need chest and abdominal imaging to rule out bleeding. TTP and DIC are also on the differential. She should have fibrinogen checked. Peripheral smear did not demonstrate any schistocytes. It did demonstrated reticulocytes and spherocytes. She did have rare platelet clumping. TTP is less likely but still on differential. DIC and bleeding are likely. Prognosis is overall poor. She is not a candidate for systemic therapy or radiation. I would recommend supportive care. Thrombocytopenia secondary to heparin: -avoid all heparin product -continue argatroban -check for DIC Anemia: -check CT chest/abdomen/pelvis without contrast once stable -check for DIC -check reticulocyte counts RUE DVT: -transition to oral anticoagulant once stable GARIMA: -management as per primary/nephrology Metastatic rectal cancer: -f/u outpatient -recommended DNR/DNI and hospice Please call [phone] with any questions or concerns. Problem List: 1. Anemia 2. DVT (deep venous thrombosis) 3. Thrombocytopenia 4. Rectal carcinoma 5. Metastases to the liver 6. GARIMA (acute kidney injury)
[2017-10-25 12:03] LABS: PTT 80 SEC (25-37)
--- NOTE | 2017-10-25 12:20 | PN- Nephrology ---
Assessment/Plan Nephrology Assessment: Oliguric GARIMA likely due to vancomycin. Her level yesterday was 18 (6 days after her last dose) , so levels during the end of Rx must have been much higher. In any case this will continue to fall. Treatment is supportive as you are doing. She has a non-anion gap acidosis which I suspect is due to GARIMA and stool loss of bicarbonate. She is also mildly hypernatremic likely related to GARIMA and some component of volume deletion. Might change IVF to D5W with 100 mEq Na HCO3 at 80-90 cc/hr. This will provide about the same volume as her current NS at 75 but will be mildly hypotonic (100 vs 154) while providing bicarbonate to correct acidosis. Suggestion: . Subjective Subjective: Still oliguric 40 cc/shift. Cr 2.1 without change. Vancomycin level 18 yesterday (6 days after last dose) Objective Vital Signs and I&Os F in ICU 124/56 94 97.6 Lungs clear Cor RRR Abd soft colostomy in place Ext 2+edema Results Pertinent Lab Results: Hg 6.5 WBC 7.8 Plt 118 145 / 122 / 37 / 4.4 / 14 / 2.1\ Vancomycin 18
--- NOTE | 2017-10-25 13:37 | CT SCAN REPORT ---
EXAMINATION: CT chest, abdomen, and pelvis WITHOUT CONTRAST CLINICAL INFORMATION: History of metastatic carcinoma. Shortness of breath and cough. Dropping hemoglobin and platelets. COMPARISON: CT chest, abdomen, and pelvis from 10/11/2017 TECHNIQUE: Multidetector volumetric imaging was performed from the superior aspect of the liver through the pubic symphysis. Sagittal and coronal reformatted images were obtained on the technologist's workstation. DLP: 1234 mGy-cm FINDINGS: CHEST: There is stable nonspecific mediastinal lymph nodes, measuring up to 8 mm in short axis in the prevascular region. No axillary or internal mammary adenopathy. Heart size is normal with coronary calcifications. Trace pericardial fluid. The caliber of the aorta is normal. There are calcifications along the aorta and at the aortic valve. Since the prior studies there are new small pleural effusions, larger on the left than the right, with associated compressive atelectasis. Numerous pulmonary masses in both lungs are stable in the short interval, with the largest in the left upper lobe measuring 2.3 cm. There is breathing artifact. There is a new platelike area of groundglass attenuation in the left lung apex, nonspecific. The central airways are patent. Abdomen/pelvis: No significant interval change in the multiple masses within the hepatic parenchyma with metastatic lesions. A small amount of ascites at the inferior margin of the liver is stable. The gallbladder appears unremarkable apart from small stones of the gallbladder neck. The adrenal glands are unchanged with mild left-sided thickening. No splenic lesions are visualized. No acute pancreatic abnormalities. Small bowel loops in the stomach appear normal in caliber. There is a stable ostomy in the left abdomen. The colon is unchanged in appearance. No extraluminal air is seen in the peritoneal cavity. No progressive ascites. Scattered periportal adenopathy appears similar to the priors measuring up to 1.5 cm in short axis. There is mild left-sided hydroureteronephrosis with several stones in the left renal pelvis, and a obstructing 7 mm stone in the distal left ureter. The configuration of the stones is different than on the prior study, with some of the stones appearing to be descended into the renal pelvis from the ureter. A left parapelvic cyst is similar to the prior. There is no right-sided hydronephrosis nor right-sided nephrolithiasis. There is a Blake catheter within the partially distended bladder with some intraluminal bladder air. The pelvic viscera are unchanged. There is a small amount of free fluid in the pelvis which is slightly diminished from the prior. There is extensive subcutaneous anasarca and skin thickening, without change. No interval compression deformities. There are mild multilevel spondylotic changes within the thoracolumbar spine. There are no convincing lytic or sclerotic osseous lesions suspicious for malignancy. IMPRESSION: Chest: 1. New pleural effusions, larger on the left than the right, relative to a prior study of 10/11/2017. There is associated compressive atelectasis. 2. Stable bilateral pulmonary masses compatible with metastatic disease. Stable nonspecific mediastinal lymph nodes are top normal in size. Abdomen/pelvis: 1. New mild left-sided hydroureteronephrosis extending to a 7 mm stone in the distal left ureter. Other previously visualized left ureteral stones appear changed in location, with more now visualized in the renal pelvis than previously. 2. Slight decrease in the abdominopelvic ascites. Otherwise stable findings as detailed above including numerous hepatic masses compatible with metastatic disease as well as periportal adenopathy.
[2017-10-25 15:44] LABS: ABSOLUTE BASOPHIL COUNT 0 /CUMM (0.0-0.2); ABSOLUTE EOSINOPHIL COUNT 0.1 /CUMM (0.0-0.7); ABSOLUTE GRANULOCYTE CT 8.7 /CUMM (1.4-6.5); ABSOLUTE LYMPH COUNT 0.9 /CUMM (1.2-3.4); ABSOLUTE MONOCYTE COUNT 0.8 /CUMM (0.10-0.60); BASOPHIL % 0.1 % (0.0-2.0); EOSINOPHIL % 0.8 % (0-5); GRANULOCYTE % 83.3 % (42.2-75.2); MEAN CORPUSCULAR HGB 26.1 PG (27.0-31.0); MEAN CORPUSCULAR HGB CONC 32.2 G/DL (33.0-37.0); MEAN CORPUSCULAR VOLUME 81.2 FL (81.0-99.0); MEAN PLATELET VOLUME 8.4 FL (7.4-10.4); PLATELET COUNT 136 /CUMM (130-400); RBC DISTRIBUTION WIDTH 23.7 % (11.5-14.5); WHITE BLOOD CELL COUNT 10.4 /CUMM (4.8-10.8)
[2017-10-25 15:49] LABS: HEMATOCRIT 26.6 % (37-47); RED BLOOD CELL CT 3.28 /CUMM (4.20-5.40)
[2017-10-25 16:00] VITALS: BP 126/58
--- NOTE | 2017-10-25 16:28 | Event Note ---
Event Note Event Note: Given her active possible vaginal or bleeding from the urinary tract and an acute drop of H&H, Argatroban was held. If the H&H stablizes, and the bleeding resolves, would resume the drip. Discussed w/ the attending. Informed the family , and discussed the risks vs benefits of holding AC. She failed the swallow evaluation, but the family still wants to provide her diet. Discussed the risks vs benefits with the patient and the family.
--- NOTE | 2017-10-25 17:15 | RADIOLOGY REPORT ---
EXAMINATION: XR MODIFIED BARIUM SWALLOW CLINICAL INFORMATION: Shortness of breath. Cough. Failed swallowing evaluation. COMPARISON: None. TECHNIQUE: A modified barium swallow was performed with speech pathologist in attendance. Pur?e, honey thick, and nectar thick consistencies were given to the patient and the swallowing mechanism was observed fluoroscopically with several spot films taken using the last image hold feature. FLUOROSCOPY TIME: 2 minutes 24 seconds. FINDINGS: With all consistencies, the oropharyngeal phase of mildly disordered with residual seen in the vallecula, which clears partially on successive swallows. With nectar and honey consistency, undercoating of the epiglottis, silent penetration and eventual aspiration is noted without sensation. IMPRESSION: 1. Silent penetration and eventual aspiration seen with nectar and honey consistency. 2. Small volume of pooling of contrast within the valleculae with all 3 consistencies used during this exam. 3. Speech pathologist assessment issued separately.
[2017-10-25 20:48] LABS: ABSOLUTE BASOPHIL COUNT 0 /CUMM (0.0-0.2); ABSOLUTE EOSINOPHIL COUNT 0 /CUMM (0.0-0.7); ABSOLUTE GRANULOCYTE CT 6.8 /CUMM (1.4-6.5); ABSOLUTE LYMPH COUNT 0.6 /CUMM (1.2-3.4); ABSOLUTE MONOCYTE COUNT 0.5 /CUMM (0.10-0.60); BASOPHIL % 0.4 % (0.0-2.0); EOSINOPHIL % 0.4 % (0-5); GRANULOCYTE % 85.1 % (42.2-75.2); HEMATOCRIT 24.9 % (37-47); MEAN CORPUSCULAR HGB 25.1 PG (27.0-31.0); MEAN CORPUSCULAR HGB CONC 30.9 G/DL (33.0-37.0); MEAN CORPUSCULAR VOLUME 81.3 FL (81.0-99.0); MEAN PLATELET VOLUME 8.6 FL (7.4-10.4); PLATELET COUNT 122 /CUMM (130-400); RBC DISTRIBUTION WIDTH 25.6 % (11.5-14.5); RED BLOOD CELL CT 3.06 /CUMM (4.20-5.40)
[2017-10-25 20:58] LABS: PTT 78 SEC (25-37)
[2017-10-25 21:00] LABS: PT 49.1 SEC (9.4-12.5)
--- NOTE | 2017-10-25 21:41 | ULTRASOUND REPORT ---
EXAMINATION: US TRIPLEX LOWER EXTREMITY, RIGHT CLINICAL INFORMATION: Swelling. Discoloration. Post IV puncture. COMPARISON: Ultrasound upper extremities 10/07/2017 TECHNIQUE: Color-flow triplex imaging with spectral analysis and compression Doppler were performed on the lower extremity. FINDINGS: On the prior ultrasound of 10/07/2017 thrombus was present within the right basilic vein extending into the adjacent right brachiocephalic vein. There was also occlusion of the right cephalic vein. On today's study the thrombus in the right basilic vein is unchanged. The thrombus in the right cephalic vein has entirely resolved. No new thrombus. There is no Cordero's cyst. IMPRESSION: 1. No change of the occlusive thrombus in the right basilic vein since prior study 10/07/2017 2. Interval clearing of the thrombus in the right cephalic vein since the prior study of 10/07/2017.
--- NOTE | 2017-10-25 23:10 | PN- Palliative Care ---
Subjective Subjective: Patient seen for f/u of dysphagia, rectal cancer. Over the past 24 hours, patient noted to have bleeding requiring transfusion. She initially showed some improvement with respect to oral intake, but has since developed worsening lethargy and appears to be unable to tolerate PO intake. IV access is becoming more difficult Review of Systems: unabel to provide review of systems Objective Last 24 Hrs of Vital Signs/I&O Vital Signs Date Time Temp Pulse Resp B/P B/P Pulse O2 O2 Flow FiO2 Mean Ox Delivery Rate 10/25 1600 98.6 91 20 126/58 95 Room Air 10/25 1600 95 Room Air 10/25 0800 94 Room Air 10/25 0800 97.6 94 20 124/56 94 Room Air 10/25 0000 95 Room Air 10/24 2338 97.9 97 18 136/58 95 Room Air Intake & Output 10/25 1600 10/25 0800 05 0000 Intake Total 852 521.6 713.5 Output Total 1170 675 500 Balance -318 -153.4 213.5 Intake, Blood 350 Product Intake, IV 502 521.6 613.5 Intake, Oral 100 Output, 575 250 Drainage Output, Other 1150 Output, Stool 50 200 Output, Urine 20 50 50 Physical Exam General Appearance: obese Head: normal appearance Abdomen: soft Neurologic/Psychiatric: lethargic Current Medications Current Medications: Current Medications Sig/Rose Start time Last Medication Dose Route Stop Time Status Admin Albumin Human 25 GM Q8 10/24 1145 10/25 IV 2158 Argatroban 250 MG Q24H 10/17 0930 DC 10/22 Sodium Chloride 250 ML IV 1019 Benzonatate 100 MG TID 10/09 2100 AC 10/23 PO 2112 Dextrose/Sodium 1,000 ML Q13H 10/21 1300 DC 10/25 Chloride IV 0652 Guaifenesin 10 ML Q6P PRN 10/09 2014 AC 10/10 PO 0524 Levothyroxine Sodium 0.025 MG DAILY AC 10/23 0700 AC 10/25 PO 0512 Morphine Sulfate 2 MG Q4P PRN 10/12 1115 AC 10/25 IV 2219 Ondansetron HCl 4 MG Q8P PRN 10/06 1845 AC 10/23 IV 1139 Pantoprazole Sodium 40 MG DAILY 10/13 0900 AC 10/25 IV 1246 Polyethylene Glycol 17 GM DAILY PRN 10/08 1145 10/10 PO 0856 Senna/Docusate Sodium 2 TAB DAILY PRN 10/11 0900 AC 10/15 PO 0951 Sodium Bicarbonate 100 MEQ Q12H 10/25 1245 10/25 Dextrose/Water 1,000 ML IV 1507 Vitamin A/Vitamin D 1 BROWN BID 10/20 2100 10/25 TOP 2158 Diagnostic Data Lab/Micro/Pathology Results: Laboratory Tests 10/25/172020: PT 49.1 *H, INR 4.44 *H, APTT 78 H, Fibrinogen Activity 214, CBC w Diff NO MAN DIFF REQ, RBC 3.06 L, MCV 81.3, MCH 25.1 L, MCHC 30.9 L, RDW 25.6 H, MPV 8.6 , Gran % 85.1 H, Lymphocytes % 7.6 L, Monocytes % 6.5, Eosinophils % 0.4, Basophils % 0.4, Absolute Granulocytes 6.8 H, Absolute Lymphocytes 0.6 L, Absolute Monocytes 0.5, Absolute Eosinophils 0, Absolute Basophils 0 10/25/17 1515: CBC w Diff NO MAN DIFF REQ, RBC 3.28 L, MCV 81.2, MCH 26.1 L, MCHC 32.2 L, RDW 23.7 H, MPV 8.4, Gran % 83.3 H, Lymphocytes % 8.4 L, Monocytes % 7.4, Eosinophils % 0.8, Basophils % 0.1, Absolute Granulocytes 8.7 H, Absolute Lymphocytes 0.9 L, Absolute Monocytes 0.8 H, Absolute Eosinophils 0.1, Absolute Basophils 0 10/25/17 1135: APTT 80 H 10/25/17 0643: CBC w Diff NO MAN DIFF REQ, RBC 2.52 L, MCV 80.7 L, MCH 25.9 L, MCHC 32.1 L, RDW 25.3 H, MPV 9.7, Gran % 84.7 H, Lymphocytes % 8.5 L, Monocytes % 5.7, Eosinophils % 0.8, Basophils % 0.3, Absolute Granulocytes 6.6 H, Absolute Lymphocytes 0.7 L, Absolute Monocytes 0.4, Absolute Eosinophils 0.1, Absolute Basophils 0 10/25/17 0500: Anion Gap 9, Estimated GFR 23 L, Glucose 137 H, Calcium 7.8 L, Phosphorus 4.1 , Magnesium 1.7, Total Bilirubin 1.5 H, Direct Bilirubin 1.3 H, AST 43 H, ALT 31, Lactate Dehydrogenase 1162 H, Albumin 1.8 L, PT 41.8 H, INR 3.78 H, Fibrinogen Activity 238, CBC w Diff MAN DIFF ORDERED, RBC 2.69 L, MCV 80.6 L, MCH 25.2 L, MCHC 31.3 L, RDW 24.5 H, MPV 8.4, Gran % 83.3 H, Lymphocytes % 8.2 L, Monocytes % 7.5, Eosinophils % 0.8, Basophils % 0.2, Absolute Granulocytes 7.5 H, Segmented Neutrophils 76 H, Band Neutrophils 5, Absolute Lymphocytes 0.7 L, Lymphocytes 10 L, Monocytes 6, Absolute Monocytes 0.7 H, Eosinophils 1, Absolute Eosinophils 0.1, Absolute Basophils 0, Metamyelocytes 2 H, Platelet Estimate DECREASED, Hypochromic-Microcytic 2+, Anisocytosis 1+, Microcytic Cells 1+, Stomatocytes FEW, Retic Count 1.60 10/24/17 2335: APTT 59 H Assessment/Plan Assessment dysphagia, advanced rectal cancer Patient's Condition: critical Prognosis: poor Is Patient Decisional? limited Case Discussed With: attending, nurse(s) Goals of Care: comfort, resuscitative measures desired Treatment Preferences: 1. Continue to aggressively treat reversible conditions 2. Ongoing discussions with family and team re: resuscitation, intubation, other interventions 3. Supportive care to patient, family 4. Will have hospice meet with family to assess logistics of home hospice 5. Pastoral care to meet regularly with patient for counseling, support Other Recommendations: Mrs. Lizama's case was presented to the ethics committee to address patient' s expressed wishes to be kept comfortable while at the same time requesting resuscitative efforts when and should she experience further decline. There is concern on the part of several members of the treatment team regarding PO intake knowing that the patient is demonstrating ongoing aspiration. While this does present a seeming conflict - namely PO intake leading to risk of aspiration, it may be ethically sound based on the principal of double effect. PO intake requested by the patient for the purposes of comfort achieves her goal of comfort, but at the same time presents risk. As long as the intent is to satify the goal of comfort, it may ethically justified. I have offered to speak with additional team members regarding this concept. There may come a time when inteventions are deemed inadvisable, contraindicated, or futile. Family should be counseled under those circumstances when such treatment are not offered for those reasons. If a cardiac arrest occurs, resuscitation should commence according to protocol, however, an assessment of futility of ongoing resuscitation may be determined to guide the length and degree of intervention performed.
[2017-10-26] VITALS: BP 134/58
[2017-10-26 06:23] LABS: ABSOLUTE BASOPHIL COUNT 0 /CUMM (0.0-0.2); ABSOLUTE EOSINOPHIL COUNT 0.1 /CUMM (0.0-0.7); ABSOLUTE GRANULOCYTE CT 6.8 /CUMM (1.4-6.5); ABSOLUTE LYMPH COUNT 0.6 /CUMM (1.2-3.4); ABSOLUTE MONOCYTE COUNT 0.5 /CUMM (0.10-0.60); BASOPHIL % 0.2 % (0.0-2.0); EOSINOPHIL % 0.8 % (0-5); GRANULOCYTE % 84.5 % (42.2-75.2); HEMATOCRIT 24.2 % (37-47); MEAN CORPUSCULAR HGB CONC 32.1 G/DL (33.0-37.0); MEAN CORPUSCULAR VOLUME 81.2 FL (81.0-99.0); MEAN PLATELET VOLUME 8.7 FL (7.4-10.4); PLATELET COUNT 115 /CUMM (130-400); RBC DISTRIBUTION WIDTH 24.7 % (11.5-14.5); RED BLOOD CELL CT 2.98 /CUMM (4.20-5.40); WHITE BLOOD CELL COUNT 8.1 /CUMM (4.8-10.8)
[2017-10-26 06:29] LABS: PTT 54 SEC (25-37)
--- NOTE | 2017-10-26 07:34 | PN- Resident CRCU ---
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 Stated the pain is adequately controlled. She was alert oriented 3. Did not complain of any shortness of breath, chest pain, palpitations. She continues to have possible vaginal bleed, and a anti-coagulation is on hold at this time. She is currently eating as per her ability, and does not complain of any cough, or chest pain at that time. She is currently on nectar thick diet. 24 Hour Events: MAXIMUM TEMPERATURE 98.9, pulse rate 94, respiration 20, blood pressure 1:30/56, 95% on room air. Objective Vital Signs & I&O Last 8 Hrs of Vitals and I&O: Intake & Output 10/26 0800 Intake Total 743 Output Total 275 Balance 468 Intake, IV 743 Output, 200 Drainage Output, Stool 25 Output, Urine 50 Exam General Appearance: no apparent distress Other Physical Findings: General Exam: AOx3, palor, No acute distress, Skin: No rashes;HEENT: PERRLA, EOMI;Neck: Supple, No JVDl; No cervical lymphadenopathy;CVS: Reg Rate, Normal S1 ,S2, No MGR; Resp: Normal air entry, bilateral ronchi and rales;Abdomen: Soft, No tenderness, Normal Bowel Sounds, colostomy bag in place, and also has an ulcer with bag in place for collection, edema extending upto the abdomen;Neuro: Normal Speech, Strength 4/5 b/l x 4 extremities, Sensation intact, CN III-XII NL , Reflexes 2+;Extremities: No cyanosis, pitting pedal edema 2 + Current Medications: Current Medications Sig/Rose Start time Last Medication Dose Route Stop Time Status Admin Albumin Human 25 GM Q8 10/24 1145 AC 10/26 IV 0532 Argatroban 250 MG Q24H 10/17 0930 DC 10/22 Sodium Chloride 250 ML IV 1019 Benzonatate 100 MG TID 04/15 2100 AC 10/26 PO 0805 Dextrose/Sodium 1,000 ML Q13H 10/21 1300 DC 10/25 Chloride IV 0652 Guaifenesin 10 ML Q6P PRN 10/09 2015 AC 10/10 PO 0524 Levothyroxine Sodium 0.025 MG DAILY AC 10/23 0700 AC 10/26 PO 0532 Magnesium Sulfate 1 GM ONCE ONE 10/26 0745 AC 10/26 Dextrose/Water 100 ML IV 10/26 1144 0805 Morphine Sulfate 2 MG Q4P PRN 10/12 1115 AC 10/26 IV 1026 Ondansetron HCl 4 MG Q8P PRN 10/06 1845 AC 10/23 IV 1139 Pantoprazole Sodium 40 MG DAILY 10/13 0900 AC 10/26 IV 0805 Polyethylene Glycol 17 GM DAILY PRN 10/08 1145 AC 10/10 PO 0856 Senna/Docusate Sodium 2 TAB DAILY PRN 10/11 0900 AC 10/15 PO 0951 Sodium Bicarbonate 100 MEQ Q12H 10/25 1245 AC 10/26 Dextrose/Water 1,000 ML IV 0326 Tamsulosin HCl 0.4 MG DAILY 10/26 0915 AC PO Vitamin A/Vitamin D 1 BROWN BID 10/20 2100 AC 10/26 TOP 0805 Impression/Plan Impression/Problem List Impression: Ms Russo is a 76-year-old woman with PMHx of 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 Montoya), coronary artery disease status post stents, type 2 diabetes, hypothyroidism hyperlipidemia, hypertension who was brought to the hospital after she was found to have severe back pain and altered mental status and found to have had hypoglycemia upto 22 mg/dl at the time of presentation which could have resulted in altered mentation. She was transferred to ICU for management of hypoglycemia and altered mental status, and was transferred back to Gen. medicine service after stabilizing her clinically. Since she had heparin associated/heparin-induced thrombocytopenia and needed a Argatroban drip and so was transferred back to intensive care unit for further monitoring. Pertient lab findings in the last 24 hrs: W BC 9.9 (10/19)-->15.9 (10/22)-->14.3 (10/24)--> 9.0 (10/25)-->8.1(10/26) Hemoglobin 8.9(10/19)-->8.8 (10/22)-->8.1(10/24)-->7.8(10/26) Platelets 71(10/19)-->159(10/22)-->175(10/24)-->118 *(10/25)-->115*(10/26) HCO3 16, chloride 120 (likely acidosis from fluids)-->122(10/24) BUN 28(10/19)-->32 (10/22)-->34(10/24) Creatinine 1.2(10/19)-->1.7 (10/22)-->2.1(10/24 and 10/25) Sodium 145 (10/25) HCO3 14(10/25)-->17(10/26) anion gap 9-->11(10/26) Radiology in the last 24 hrs: CT chest 10/25/17: 1. New pleural effusions, larger on the left than the right, relative to a prior study of 10/11/2017. There is associated compressive atelectasis. 2. Stable bilateral pulmonary masses compatible with metastatic disease. Stable nonspecific mediastinal lymph nodes are top normal in size. Abdomen/pelvis 10/25/17: 1. New mild left-sided hydroureteronephrosis extending to a 7 mm stone in the distal left ureter. Other previously visualized left ureteral stones appear changed in location, with more now visualized in the renal pelvis than previously. 2. Slight decrease in the abdominopelvic ascites. Otherwise stable findings as detailed above including numerous hepatic masses compatible with metastatic disease as well as periportal adenopathy. Plan: 1. MRSA bronchitis: She was treated for MRSA bronchitis with vancomycin for 7 days. Currently off antibiotics. She has been eating regular diet, against the speech therapists recs, as per the pts family's request. They understand the risks vs benefits. Speech re-evaluation pending. Pt refusing NG tube. 2. Klebsiella UTI: Completed a course of Ceftaz for 7 days 3. Borderline hypotension: Borderline blood pressure 90/50 at the time of admission. She received adequate hydration. After which blood pressure continued to improve. Her blood pressure remained stable at around 110-120 throughout her stay. Can continue her home medication at the time of discharge. Doesn't require any central line or vasopressor management. 4. Anemia likely ABLA: Guaiac positive stools, given history of rectal cancer and recent surgery. Hemoglobin and hematocrit remained stable without significant drop. Likely vaginal bleed or rectal bleed. 5. 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 His workup was negative however. She was restarted on enoxaparin and her platelets again declined. Hematology is recommending to avoid heparin at this time. Given renal insufficiency, new anticoagulants cannot be used in the treatment of DVT in her case. She should be started on warfarin at some point. If any procedures are planned, would start warfarin after the procedure. Given her use of argatroban, which also affects INR, her goal should be INR > 4, which will put her at a higher risk of bleeding. Need to discuss w/ the family. An acute drop in H&H could be attributed to vancomycin too, which is possible. Given her bleeding, Argatroban on hold. -No heparin or heparin products and future -Closer monitoring for any bleeding. -Monitor platelet count daily 6. Hypoglycemia: Resolved, we will monitor with Accu-Cheks 3 times a day and at bedtime 7. 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 She is status post diverting colostomy on 09/26/17 and was subsequently discharged to an extended care facility. She continues with pain presumably from the rectal mass. She has expressed her desire to move forward with palliative radiation therapy. Palliative external beam radiation treatments will therefore proceed as planned. A total of 10 doses (3000 cGy) is being prescribed. She has received two treatments only 10/10/17. and 10/11/2017 8. Dysphagia: Patient reported difficulty swallowing, concern for aspiration. Await recs from the swallow eval. 9 . GARIMA: This has been worsening kidney function, likely prerenal in her case due to increasing third spacing and decreased intravascular volume. Other potential causes are vancomycin use acute tubular necrosis. Random vancomycin level 18,7 is clearly elevated even after discontinuation of vancomycin more than 7 days only would indicate a possible etiology. Start albumin for increasing intravascular volume. She also has Non anion gap metabolic acidosis which would be tx'ed w/ D5W+HCO3, which would likely correct hypernatremia also. Newly found incidental reading of 7mm ureteric stone, contributing to both hematuria, drop in H&H, and GARIMA. Flomax has been added to her regimen. Other medical problems: Hypothyroidism- Continue LT4 Hyperlipidemia -stopped Lipitor History of diabetes mellitus- Accu-Cheks. Held home meds given hypoglycemia Hypertension - held home medication quinalapril given hypotension at time of admission Coronary artery disease status post stents Disposition: Goals of care discussion ongoing. She is full code. Problem List: 1. Pneumonia 2. GARIMA (acute kidney injury) 3. UTI (urinary tract infection) Pain Ratin Tomorrow's Labs & Rationales: back Plan DVT/Prophylaxis: mechanical Code Status: Full Code Dennis Hunter MD 10/26/17 1331: Attending MD Review Statement Attending Sign Off Attending Cosign Statement: I have: examined this patient, reviewed avalbl EMR data, personally reviewd images, discussd w/resident/PA/INVENTORY CONTROL COORDINATOR, discussed mgmt plan w/CM, discussed mgmt plan w/pt, agreed w/resident/PA/INVENTORY CONTROL COORDINATOR, amended to note. Other Findings: The patient was seen and discussed with house staff. Also spoke on the phone with her daughter Symone to update her on current issues. The patient is more alert this morning and eating thickened pudding. States she is comfortable. Bleeding (?vaginal) appears to have stopped - now at least temporarily off Argatroban drip. Heme/Onc, Endo, Nephro, & Urology input appreciated (re nephrolithiasis). Creatinine slightly worse today and will follow (continuing albumin/bicarbonate). Daughter was updated on all issues at present. Attending Sign Off Attending Cosign Statement: I have: examined this patient, reviewed avalbl EMR data, personally reviewd images, discussd w/resident/PA/INVENTORY CONTROL COORDINATOR, discussed mgmt plan w/CM, discussed mgmt plan w/pt, agreed w/resident/PA/INVENTORY CONTROL COORDINATOR, amended to note. Other Findings: The patient was seen and discussed with house staff. Also spoke on the phone with her daughter Symone to update her on current issues. The patient is more alert this morning and eating thickened pudding. States she is comfortable. Bleeding (?vaginal) appears to have stopped - now at least temporarily off Argatroban drip. Heme/Onc, Endo, Nephro, & Urology input appreciated (re nephrolithiasis). Creatinine slightly worse today and will follow (continuing albumin/bicarbonate). Daughter was updated on all issues at present. images, discussd w/resident/PA/INVENTORY CONTROL COORDINATOR, discussed mgmt plan w/CM, discussed mgmt plan w/pt, agreed w/resident/PA/INVENTORY CONTROL COORDINATOR, amended to note. Other Findings: The patient was seen and discussed with house staff. Also spoke on the phone with her daughter Symone to update her on current issues. The patient is more alert this morning and eating thickened pudding. States she is comfortable. Bleeding (?vaginal) appears to have stopped - now at least temporarily off Argatroban drip. Heme/Onc, Endo, Nephro, & Urology input appreciated (re nephrolithiasis). Creatinine slightly worse today and will follow (continuing albumin/bicarbonate). Daughter was updated on all issues at present.
--- NOTE | 2017-10-26 07:40 | Cons- Urology ---
General Information and HPI Consulting Request Date of Consult: 10/26/17 Requested By: Dennis Hunter MD Reason for Consult: kidney and ureteral stones Source of Information: old records Exam Limitations: no limitations History of Present Illness: This patient has diffusely metastatic rectal ca. She has undergone diverting colostomy. She was admitted with intractable rectal pain. She has a hx of urinary stones. CT scan of 10/07/17 showed a single L kidney stone and 4-5 L ureteral stones at the level of the iliac vessels. There was no hydronephrosis. Repeat CT scan on 10/25/17 showed that all but one of the L ureteral stones migrated proximally into the renal pelvis. There was a single L ureteral stone at the level of the iliac vessels with mild hydronephrosis to that level. She denies L flank pain. Goals of care decisions are being made and at this point it appears that home hospice care is likely. She has no fevers, chills or leukocytosis. Allergies/Medications Allergies: Coded Allergies: heparin (Severe, Thrombocytopenia 10/17/17) shellfish derived (Intermediate, G.I. DISTRESS FROM SCALLOPS 09/14/17) Home Med List: Atorvastatin Calcium 40 MG TABLET 1 TAB PO DAILY CHOLESTROL (Reported) Glimepiride 4 MG TABLET 1 TAB PO DAILY DM (Reported) Levothyroxine Sodium 25 MCG TABLET 1 TAB PO DAILY THYROID (Reported) Multivitamin (Daily Multiple Vitamin) 1 EACH TABLET 1 TAB PO DAILY VITAMIN SUPPORT (Reported) Oxycodone HCl/Acetaminophen (Percocet 5-325 MG Tablet) 5 MG-325 MG TABLET 1-2 TAB PO Q4-6 PRN PAIN Quinapril HCl 20 MG TABLET 1 TAB PO DAILY HTN (Reported) Sitagliptin Phos/Metformin HCl (Janumet 50-1,000 MG Tablet) 50 MG-1,000 MG TABLET 1 TAB PO BID DM (Reported) Past History Medical History Neurological: NONE EENT: NONE Cardiovascular: CAD (s/p stents), hypertension, hyperlipidemia, HEART MURMUR Respiratory: NONE Gastrointestinal: COLORECTAL CANCER Hepatic: mets to liver/lung Renal: nephrolithiasis Musculoskeletal: NONE Psychiatric: NONE Endocrine: diabetes, hypothyroidism, obesity Blood Disorders: NONE Cancer(s): colon/rectal cancer DREDGE MECHANIC/Reproductive: NONE Surgical History Pertinent Surgical History: non-contributory Family History Relations & Conditions If Any: FATHER FH: heart disease MOTHER FH: cancer of digestive organ BROTHER FH: heart attack SISTER FHx: lung cancer BROTHER Psychosocial History Where Do You Live? [facility] Who Do You Live With? self Primary Language: Vietnamese Smoking Status: Former Smoker ETOH Use: denies use Living Will? unknown Power of Tax Analyst/HCP? unknown Functional Ability ADLs Needs Assist: dressing, eating, toileting, bathing. IADLs Needs Assist: shopping, housework, finances, food prep, telephone, transportation, medication admin. Employment History Employment: Retired Retired? yes Exam & Diagnostic Data Vital Signs and I&O Vital Signs Date Time Temp Pulse Resp B/P B/P Pulse O2 O2 Flow FiO2 Mean Ox Delivery Rate 10/26 0000 96 Room Air 10/26 0000 97.2 92 16 134/58 96 Room Air 10/25 1600 98.6 91 20 126/58 95 Room Air 10/25 1600 95 Room Air 10/25 0800 94 Room Air 10/25 0800 97.6 94 20 124/56 94 Room Air Intake & Output 10/26 0810/26 0000 10/25 1600 10/25 0800 10/25 0000 10/24 1600 Intake Total 743 635.2 852 521.6 713.5 865 Output Total 771 898 0677 675 500 245 Balance 468 -189.8 -318 -153.4 213.5 620 Intake, Blood 350 Product Intake, IV 743 635.2 502 521.6 613.5 505 Intake, Oral 100 360 Output, 200 725 575 250 Drainage Output, Other 1150 150 Output, Stool 25 25 50 200 50 Output, Urine 50 75 20 50 50 45 Back: no CVA tenderness Abd: soft and non tender. Colostomy in place Laboratory Tests 10/26 10/25 0558 2330 Chemistry Sodium (137 - 145 mmol/L) 147 H Potassium (3.5 - 5.1 mmol/L) 4.2 Chloride (98 - 107 mmol/L) 119 H Carbon Dioxide (22 - 30 mmol/L) 17 L Anion Gap (5 - 16) 11 BUN (7 - 17 mg/dL) 37 H Creatinine (0.5 - 1.0 mg/dL) 2.3 H Estimated GFR (>60 ml/min) 21 L Glucose (65 - 99 mg/dL) 111 H Calcium (8.4 - 10.2 mg/dL) 8.2 L Phosphorus (2.5 - 4.5 mg/dL) 4.0 Magnesium (1.6 - 2.3 mg/dL) 1.5 L Total Bilirubin (0.2 - 1.3 mg/dL) 2.0 H AST (14 - 36 U/L) 35 ALT (9 - 52 U/L) 28 Albumin (3.5 - 5.0 g/dL) 2.2 L Coagulation PT (9.4 - 12.5 SEC) 44.0 *H INR (0.90 - 1.19) 3.98 H APTT (25 - 37 SEC) 54 H Cancelled Fibrinogen Activity (200 - 393 MG/DL) 212 Hematology CBC w Diff MAN DIFF ORDERED WBC (4.8 - 10.8 /CUMM) 8.1 RBC (4.20 - 5.40 /CUMM) 2.98 L Hgb (12.0 - 16.0 G/DL) 7.8 L Hct (37 - 47 %) 24.2 L MCV (81.0 - 99.0 FL) 81.2 MCH (27.0 - 31.0 PG) 26.0 L MCHC (33.0 - 37.0 G/DL) 32.1 L RDW (11.5 - 14.5 %) 24.7 H Plt Count (130 - 400 /CUMM) 115 L MPV (7.4 - 10.4 FL) 8.7 Gran % (42.2 - 75.2 %) 84.5 H Lymphocytes % (20.5 - 51.1 %) 8.0 L Monocytes % (1.7 - 9.3 %) 6.5 Eosinophils % (0 - 5 %) 0.8 Basophils % (0.0 - 2.0 %) 0.2 Absolute Granulocytes (1.4 - 6.5 /CUMM) 6.8 H Segmented Neutrophils (42.2 - 75.2 %) 86 H Band Neutrophils (0.0 - 5.0 %) 1 Absolute Lymphocytes (1.2 - 3.4 /CUMM) 0.6 L Lymphocytes (20.5 - 51.1 %) 6 L Monocytes (1.7 - 9.3 %) 5 Absolute Monocytes (0.10 - 0.60 /CUMM) 0.5 Eosinophils (0 - 5.0 %) 2 Absolute Eosinophils (0.0 - 0.7 /CUMM) 0.1 Absolute Basophils (0.0 - 0.2 /CUMM) 0 Platelet Estimate (ADEQUATE) ADEQUATE Polychromasia 1+ Hypochromic-Microcytic 1+ Poikilocytosis 1+ Ovalocytes 1+ Other Body Source Fld Total RBCs Counted (%) 100 10/25 151 Coagulation PT (9.4 - 12.5 SEC) 49.1 *H INR (0.90 - 1.19) 4.44 *H APTT (25 - 37 SEC) 78 H Fibrinogen Activity (200 - 393 MG/DL) 214 Hematology CBC w Diff NO MAN DIFF REQ NO MAN DIFF REQ WBC (4.8 - 10.8 /CUMM) 8.0 10.4 RBC (4.20 - 5.40 /CUMM) 3.06 L 3.28 L Hgb (12.0 - 16.0 G/DL) 7.7 L 8.6 L Hct (37 - 47 %) 24.9 L 26.6 L MCV (81.0 - 99.0 FL) 81.3 81.2 MCH (27.0 - 31.0 PG) 25.1 L 26.1 L MCHC (33.0 - 37.0 G/DL) 30.9 L 32.2 L RDW (11.5 - 14.5 %) 25.6 H 23.7 H Plt Count (130 - 400 /CUMM) 122 L 136 MPV (7.4 - 10.4 FL) 8.6 8.4 Gran % (42.2 - 75.2 %) 85.1 H 83.3 H Lymphocytes % (20.5 - 51.1 %) 7.6 L 8.4 L Monocytes % (1.7 - 9.3 %) 6.5 7.4 Eosinophils % (0 - 5 %) 0.4 0.8 Basophils % (0.0 - 2.0 %) 0.4 0.1 Absolute Granulocytes (1.4 - 6.5 /CUMM) 6.8 H 8.7 H Absolute Lymphocytes (1.2 - 3.4 /CUMM) 0.6 L 0.9 L Absolute Monocytes (0.10 - 0.60 /CUMM) 0.5 0.8 H Absolute Eosinophils (0.0 - 0.7 /CUMM) 0 0.1 Absolute Basophils (0.0 - 0.2 /CUMM) 0 0 05/01 1135 Coagulation APTT (25 - 37 SEC) 80 H Assessment/Plan Assessment/Plan Imp: 1. Multiple non obstructing L renal calculi 2. 7 mm, partially obstructing stone in L ureter at level of iliac vessels 3. Metastatic rectal ca, with patient not being a candidate for chemotherapy Plan: 1. In view of lack of L flank pain, no fever and no leukocytosis and in view of overall situation would manage L ureteral stone and L renal stones conservatively at this point. Could start flomax 0.4 mg qd in effort to increase chance that L ureteral stone would pass into bladder. Consult Acknowledgment - Thank you for your consult request.
--- NOTE | 2017-10-26 07:51 | PN- Oncology ---
Subjective Subjective: She denies any new symptoms. She failed swallow evaluation. She has no new bleeding. She has no fever or chills. She has no nasuea or vomiting. She denies any new pain. Review of Systems: Constitutional: Reports: Fatigue,. Denies: chills, fever. Gastrointestinal: Denies: abdominal pain. Musculoskeletal: Denies: back pain. All Other Systems: Reviewed and Negative Objective Vital Signs and I&Os Vital Signs Date Time Temp Pulse Resp B/P B/P Pulse O2 O2 Flow FiO2 Mean Ox Delivery Rate 10/26 0000 96 Room Air 10/26 0000 97.2 92 16 134/58 96 Room Air 10/25 1600 98.6 91 20 126/58 95 Room Air 10/25 1600 95 Room Air 10/25 0800 94 Room Air 10/25 0800 97.6 94 20 124/56 94 Room Air Intake & Output 10/26 0800 10/26 0000 10/25 1600 10/25 0800 10/25 0000 10/24 1600 Intake Total 743 635.2 852 521.6 713.5 865 Output Total 952 332 7605 675 500 245 Balance 468 -189.8 -318 -153.4 213.5 620 Intake, Blood 350 Product Intake, IV 743 635.2 502 521.6 613.5 505 Intake, Oral 100 360 Output, 200 725 575 250 Drainage Output, Other 1150 150 Output, Stool 25 25 50 200 50 Output, Urine 50 75 20 50 50 45 Physical Exam: General Appearance: alert, awake, obese Eyes: Bilateral: PERRL. Ears, Nose, Throat: dry mucosa Respiratory: rhonchi, quiet respiration, intermittent cough, decrease breath sound anteriorly Cardiovascular: tachycardia, no murmurs Gastrointestinal: normal bowel sounds, tenderness, LLQ colostomy in place, abdominal bag in place with clear and yellow fluid : edwards in place. Dark urine. Extremities: upper and lower extremity edema 3+ throughout Neurologic/Psych: awake, alert, oriented, slow to answer questions. Current Medications: Current Medications Sig/Rose Start time Last Medication Dose Route Stop Time Status Admin Albumin Human 25 GM Q8 10/24 1145 AC 10/26 IV 0532 Argatroban 250 MG Q24H 10/17 0930 DC 10/22 Sodium Chloride 250 ML IV 1019 Benzonatate 100 MG TID 10/09 2100 AC 10/23 PO 2112 Dextrose/Sodium 1,000 ML Q13H 10/21 1300 DC 10/25 Chloride IV 0652 Guaifenesin 10 ML Q6P PRN 10/09 2015 AC 10/10 PO 0524 Levothyroxine Sodium 0.025 MG DAILY AC 10/23 0700 AC 10/26 PO 0532 Magnesium Sulfate 1 GM ONCE ONE 10/26 0745 AC Dextrose/Water 100 ML IV 10/26 1144 Morphine Sulfate 2 MG Q4P PRN 10/12 1115 AC 10/26 IV 0326 Ondansetron HCl 4 MG Q8P PRN 10/06 1845 AC 10/23 IV 1139 Pantoprazole Sodium 40 MG DAILY 10/13 0900 AC 10/25 IV 1246 Polyethylene Glycol 17 GM DAILY PRN 10/08 1145 AC 10/10 PO 0856 Senna/Docusate Sodium 2 TAB DAILY PRN 10/11 0900 AC 10/15 PO 0951 Sodium Bicarbonate 100 MEQ Q12H 10/25 1245 AC 10/26 Dextrose/Water 1,000 ML IV 0326 Vitamin A/Vitamin D 1 BROWN BID 10/20 2100 AC 10/25 [facility] 2158 Results Last 24 Hours of Lab Results: Laboratory Tests 10/26 10/25 0558 2330 Chemistry Sodium (137 - 145 mmol/L) 147 H Potassium (3.5 - 5.1 mmol/L) 4.2 Chloride (98 - 107 mmol/L) 119 H Carbon Dioxide (22 - 30 mmol/L) 17 L Anion Gap (5 - 16) 11 BUN (7 - 17 mg/dL) 37 H Creatinine (0.5 - 1.0 mg/dL) 2.3 H Estimated GFR (>60 ml/min) 21 L Glucose (65 - 99 mg/dL) 111 H Calcium (8.4 - 10.2 mg/dL) 8.2 L Phosphorus (2.5 - 4.5 mg/dL) 4.0 Magnesium (1.6 - 2.3 mg/dL) 1.5 L Total Bilirubin (0.2 - 1.3 mg/dL) 2.0 H AST (14 - 36 U/L) 35 ALT (9 - 52 U/L) 28 Albumin (3.5 - 5.0 g/dL) 2.2 L Coagulation PT (9.4 - 12.5 SEC) 44.0 *H INR (0.90 - 1.19) 3.98 H APTT (25 - 37 SEC) 54 H Cancelled Fibrinogen Activity (200 - 393 MG/DL) 212 Hematology CBC w Diff MAN DIFF ORDERED WBC (4.8 - 10.8 /CUMM) 8.1 RBC (4.20 - 5.40 /CUMM) 2.98 L Hgb (12.0 - 16.0 G/DL) 7.8 L Hct (37 - 47 %) 24.2 L MCV (81.0 - 99.0 FL) 81.2 MCH (27.0 - 31.0 PG) 26.0 L MCHC (33.0 - 37.0 G/DL) 32.1 L RDW (11.5 - 14.5 %) 24.7 H Plt Count (130 - 400 /CUMM) 115 L MPV (7.4 - 10.4 FL) 8.7 Gran % (42.2 - 75.2 %) 84.5 H Lymphocytes % (20.5 - 51.1 %) 8.0 L Monocytes % (1.7 - 9.3 %) 6.5 Eosinophils % (0 - 5 %) 0.8 Basophils % (0.0 - 2.0 %) 0.2 Absolute Granulocytes (1.4 - 6.5 /CUMM) 6.8 H Segmented Neutrophils (42.2 - 75.2 %) 86 H Band Neutrophils (0.0 - 5.0 %) 1 Absolute Lymphocytes (1.2 - 3.4 /CUMM) 0.6 L Lymphocytes (20.5 - 51.1 %) 6 L Monocytes (1.7 - 9.3 %) 5 Absolute Monocytes (0.10 - 0.60 /CUMM) 0.5 Eosinophils (0 - 5.0 %) 2 Absolute Eosinophils (0.0 - 0.7 /CUMM) 0.1 Absolute Basophils (0.0 - 0.2 /CUMM) 0 Platelet Estimate (ADEQUATE) ADEQUATE Polychromasia 1+ Hypochromic-Microcytic 1+ Poikilocytosis 1+ Ovalocytes 1+ Other Body Source Fld Total RBCs Counted (%) 100 10/25 1515 Coagulation PT (9.4 - 12.5 SEC) 49.1 *H INR (0.90 - 1.19) 4.44 *H APTT (25 - 37 SEC) 78 H Fibrinogen Activity (200 - 393 MG/DL) 214 Hematology CBC w Diff NO MAN DIFF REQ NO MAN DIFF REQ WBC (4.8 - 10.8 /CUMM) 8.0 10.4 RBC (4.20 - 5.40 /CUMM) 3.06 L 3.28 L Hgb (12.0 - 16.0 G/DL) 7.7 L 8.6 L Hct (37 - 47 %) 24.9 L 26.6 L MCV (81.0 - 99.0 FL) 81.3 81.2 MCH (27.0 - 31.0 PG) 25.1 L 26.1 L MCHC (33.0 - 37.0 G/DL) 30.9 L 32.2 L RDW (11.5 - 14.5 %) 25.6 H 23.7 H Plt Count (130 - 400 /CUMM) 122 L 136 MPV (7.4 - 10.4 FL) 8.6 8.4 Gran % (42.2 - 75.2 %) 85.1 H 83.3 H Lymphocytes % (20.5 - 51.1 %) 7.6 L 8.4 L Monocytes % (1.7 - 9.3 %) 6.5 7.4 Eosinophils % (0 - 5 %) 0.4 0.8 Basophils % (0.0 - 2.0 %) 0.4 0.1 Absolute Granulocytes (1.4 - 6.5 /CUMM) 6.8 H 8.7 H Absolute Lymphocytes (1.2 - 3.4 /CUMM) 0.6 L 0.9 L Absolute Monocytes (0.10 - 0.60 /CUMM) 0.5 0.8 H Absolute Eosinophils (0.0 - 0.7 /CUMM) 0 0.1 Absolute Basophils (0.0 - 0.2 /CUMM) 0 0 05/01 1135 Coagulation APTT (25 - 37 SEC) 80 H Recent Imaging Studies: CT chest/abdomen/pelvis 10/25/2017: Chest: 1. New pleural effusions, larger on the left than the right, relative to a prior study of 10/11/2017. There is associated compressive atelectasis. 2. Stable bilateral pulmonary masses compatible with metastatic disease. Stable nonspecific mediastinal lymph nodes are top normal in size. Abdomen/pelvis: 1. New mild left-sided hydroureteronephrosis extending to a 7 mm stone in the distal left ureter. Other previously visualized left ureteral stones appear changed in location, with more now visualized in the renal pelvis than previously. 2. Slight decrease in the abdominopelvic ascites. Otherwise stable findings as detailed above including numerous hepatic masses compatible with metastatic disease as well as periportal adenopathy. RUE US 10/25/2017: 1. No change of the occlusive thrombus in the right basilic vein since prior study 10/07/2017 2. Interval clearing of the thrombus in the right cephalic vein since the prior study of 10/07/2017. Assessment/Plan Assessment/Recommendations: Ms. 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 She was seen in radiation oncology office and was noted to be in severe pain. She was [facility] to [facility] evaluation. On admission, she was noted to be somnolent and hypoglycemic. Hypoglycemic has improved. She remains critically ill with poor prognosis. Hemoglobin improved with transfusion. Thrombocytopenia is stable to slightly worse. Peripheral smear was reviewed and noted few platelet clumping. There was no schistocytes. There was few reticulocytes and spherocytes. DIC was negative. CT scan demonstrated left hydronephrosis from likely an obstruction stone. Renal dysfunction may be related to this finding. US of the RUE still demonstrated thrombosis. Thrombocytopenia may be related to medication versus developing sepsis. She can be monitored for now. There was concerned about hematuria and vaginal bleeding. Argatroban was held. She does not seem to be having any further bleeding. Reticulocyte count is low and may suggest marrow suppression. This may be from chronic illness, infection, medication, or tumor involvement. Prognosis is overall poor. She is not a candidate for systemic therapy or radiation. I would recommend supportive care. Thrombocytopenia: -avoid all heparin product -continue argatroban Anemia: -monitor for bleeding -check iron studies RUE DVT: -transition to oral anticoagulant once stable -continue anticoagulation if not bleeding GARIMA: -management as per primary/nephrology Metastatic rectal cancer: -f/u outpatient -recommended DNR/DNI and hospice Please call [phone] with any questions or concerns. Problem List: 1. Thrombocytopenia 2. Rectal carcinoma 3. Metastases to the liver 4. DVT (deep venous thrombosis) 5. GARIMA (acute kidney injury) 6. Abnormal LFTs
[2017-10-26 08:00] VITALS: BP 130/56
--- NOTE | 2017-10-26 08:58 | PN- Diabetes ---
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 She is currently in ICU. Her po intake has been poor. She is receiving bicarb drip in D5W at 80 ml/hour. Her FSGs were 137, 133, 155, 157 and 111. Her Cr has been elevated ( 2.3). She has left hydroureteronephrosis due to an obstructing stone. Plan: From DM standpoint, her glucose levels have been stable. She has been off on all the antidiabetic medications. We will continue monitoring her glucose levels. Subjective Subjective: She feels slightly stronger this morning. Objective Last 24 Hrs of Vital Signs/I&O Vital Signs Date Time Temp Pulse Resp B/P B/P Pulse O2 O2 Flow FiO2 Mean Ox Delivery Rate 10/26 0000 96 Room Air 10/26 0000 97.2 92 16 134/58 96 Room Air 10/25 1600 98.6 91 20 126/58 95 Room Air 10/25 1600 95 Room Air Intake & Output 10/26 1600 10/26 0800 / 0000 Intake Total 743 635.2 Output Total 275 825 Balance 468 -189.8 Intake, IV 743 635.2 Output, 200 725 Drainage Output, Stool 25 25 Output, Urine 50 75 Findings Pertinent Lab/Tha Results: Laboratory Tests 10/26 10/25 0558 2330 Chemistry Sodium (137 - 145 mmol/L) 147 H Potassium (3.5 - 5.1 mmol/L) 4.2 Chloride (98 - 107 mmol/L) 119 H Carbon Dioxide (22 - 30 mmol/L) 17 L Anion Gap (5 - 16) 11 BUN (7 - 17 mg/dL) 37 H Creatinine (0.5 - 1.0 mg/dL) 2.3 H Estimated GFR (>60 ml/min) 21 L Glucose (65 - 99 mg/dL) 111 H Calcium (8.4 - 10.2 mg/dL) 8.2 L Phosphorus (2.5 - 4.5 mg/dL) 4.0 Magnesium (1.6 - 2.3 mg/dL) 1.5 L Total Bilirubin (0.2 - 1.3 mg/dL) 2.0 H AST (14 - 36 U/L) 35 ALT (9 - 52 U/L) 28 Albumin (3.5 - 5.0 g/dL) 2.2 L Coagulation PT (9.4 - 12.5 SEC) 44.0 *H INR (0.90 - 1.19) 3.98 H APTT (25 - 37 SEC) 54 H Cancelled Fibrinogen Activity (200 - 393 MG/DL) 212 Hematology CBC w Diff MAN DIFF ORDERED WBC (4.8 - 10.8 /CUMM) 8.1 RBC (4.20 - 5.40 /CUMM) 2.98 L Hgb (12.0 - 16.0 G/DL) 7.8 L Hct (37 - 47 %) 24.2 L MCV (81.0 - 99.0 FL) 81.2 MCH (27.0 - 31.0 PG) 26.0 L MCHC (33.0 - 37.0 G/DL) 32.1 L RDW (11.5 - 14.5 %) 24.7 H Plt Count (130 - 400 /CUMM) 115 L MPV (7.4 - 10.4 FL) 8.7 Gran % (42.2 - 75.2 %) 84.5 H Lymphocytes % (20.5 - 51.1 %) 8.0 L Monocytes % (1.7 - 9.3 %) 6.5 Eosinophils % (0 - 5 %) 0.8 Basophils % (0.0 - 2.0 %) 0.2 Absolute Granulocytes (1.4 - 6.5 /CUMM) 6.8 H Segmented Neutrophils (42.2 - 75.2 %) 86 H Band Neutrophils (0.0 - 5.0 %) 1 Absolute Lymphocytes (1.2 - 3.4 /CUMM) 0.6 L Lymphocytes (20.5 - 51.1 %) 6 L Monocytes (1.7 - 9.3 %) 5 Absolute Monocytes (0.10 - 0.60 /CUMM) 0.5 Eosinophils (0 - 5.0 %) 2 Absolute Eosinophils (0.0 - 0.7 /CUMM) 0.1 Absolute Basophils (0.0 - 0.2 /CUMM) 0 Platelet Estimate (ADEQUATE) ADEQUATE Polychromasia 1+ Hypochromic-Microcytic 1+ Poikilocytosis 1+ Ovalocytes 1+ Other Body Source Fld Total RBCs Counted (%) 100 10/25 151 Coagulation PT (9.4 - 12.5 SEC) 49.1 *H INR (0.90 - 1.19) 4.44 *H APTT (25 - 37 SEC) 78 H Fibrinogen Activity (200 - 393 MG/DL) 214 Hematology CBC w Diff NO MAN DIFF REQ NO MAN DIFF REQ WBC (4.8 - 10.8 /CUMM) 8.0 10.4 RBC (4.20 - 5.40 /CUMM) 3.06 L 3.28 L Hgb (12.0 - 16.0 G/DL) 7.7 L 8.6 L Hct (37 - 47 %) 24.9 L 26.6 L MCV (81.0 - 99.0 FL) 81.3 81.2 MCH (27.0 - 31.0 PG) 25.1 L 26.1 L MCHC (33.0 - 37.0 G/DL) 30.9 L 32.2 L RDW (11.5 - 14.5 %) 25.6 H 23.7 H Plt Count (130 - 400 /CUMM) 122 L 136 MPV (7.4 - 10.4 FL) 8.6 8.4 Gran % (42.2 - 75.2 %) 85.1 H 83.3 H Lymphocytes % (20.5 - 51.1 %) 7.6 L 8.4 L Monocytes % (1.7 - 9.3 %) 6.5 7.4 Eosinophils % (0 - 5 %) 0.4 0.8 Basophils % (0.0 - 2.0 %) 0.4 0.1 Absolute Granulocytes (1.4 - 6.5 /CUMM) 6.8 H 8.7 H Absolute Lymphocytes (1.2 - 3.4 /CUMM) 0.6 L 0.9 L Absolute Monocytes (0.10 - 0.60 /CUMM) 0.5 0.8 H Absolute Eosinophils (0.0 - 0.7 /CUMM) 0 0.1 Absolute Basophils (0.0 - 0.2 /CUMM) 0 0 05/01 1135 Coagulation APTT (25 - 37 SEC) 80 H
--- NOTE | 2017-10-26 11:01 | PN- Nephrology ---
Assessment/Plan Nephrology Assessment: GARIMA likely vancomycin in this elderly F with metastatic rectal cancer. Pt remains oliguric. Continue IV bicarbonate/albumin. Supportive care as you are doing. Overall prognosis poor. Jorje Martinez MD Suggestion: . Subjective Subjective: Cr 2.3. Clinically no change. Pt in ICU remains oliguric. Acidosis improved with IV bicarbonate. Objective Vital Signs and I&Os Ill appearing F in ICU Lungs clear Cor RRR Abd soft Ext 3+edema Results Pertinent Lab Results: 147 / 119 / 37 / 4.2 / 17 / 2.3\ U.O. 200 cc/24 hrs
--- NOTE | 2017-10-26 15:46 | PN- Infect Dx ---
Subjective Subjective: Afebrile without new complaints. She wants to be left alone. Objective Last 24 Hrs of Vital Signs/I&O Vital Signs Date Time Temp Pulse Resp B/P B/P Pulse O2 O2 Flow FiO2 Mean Ox Delivery Rate 10/26 1139 77 130/70 10/26 0800 95 Room Air 10/26 0800 98.9 94 20 130/56 95 Room Air 05/ 0000 96 Room Air / 0000 97.2 92 16 134/58 96 Room Air 10/25 1600 98.6 91 20 126/58 95 Room Air 10/25 1600 95 Room Air Intake & Output 10/26 1600 10/26 0800 05 0000 Intake Total 920 743 635.2 Output Total 1150 275 825 Balance -230 468 -189.8 Intake, IV 820 743 635.2 Intake, Oral 100 Number 1 Bowel Movements Output, 1100 200 725 Drainage Output, Stool 25 25 Output, Urine 50 50 75 Physical Exam Other Physical Findings: She appears chronically ill but in no acute distress Lungs are clear anteriorly Heart regular rhythm with no murmur Abdomen is mildly distended, nontender with positive bowel sounds Extremities 2+ edema both lower extremities Blake catheter remains in place Results Last 24 Hours of Lab Results: Laboratory Tests 10/26 10/25 0558 2330 Chemistry Sodium (137 - 145 mmol/L) 147 H Potassium (3.5 - 5.1 mmol/L) 4.2 Chloride (98 - 107 mmol/L) 119 H Carbon Dioxide (22 - 30 mmol/L) 17 L Anion Gap (5 - 16) 11 BUN (7 - 17 mg/dL) 37 H Creatinine (0.5 - 1.0 mg/dL) 2.3 H Estimated GFR (>60 ml/min) 21 L Glucose (65 - 99 mg/dL) 111 H Calcium (8.4 - 10.2 mg/dL) 8.2 L Phosphorus (2.5 - 4.5 mg/dL) 4.0 Magnesium (1.6 - 2.3 mg/dL) 1.5 L Total Bilirubin (0.2 - 1.3 mg/dL) 2.0 H AST (14 - 36 U/L) 35 ALT (9 - 52 U/L) 28 Albumin (3.5 - 5.0 g/dL) 2.2 L Coagulation PT (9.4 - 12.5 SEC) 44.0 *H INR (0.90 - 1.19) 3.98 H APTT (25 - 37 SEC) 54 H Cancelled Fibrinogen Activity (200 - 393 MG/DL) 212 Hematology CBC w Diff MAN DIFF ORDERED WBC (4.8 - 10.8 /CUMM) 8.1 RBC (4.20 - 5.40 /CUMM) 2.98 L Hgb (12.0 - 16.0 G/DL) 7.8 L Hct (37 - 47 %) 24.2 L MCV (81.0 - 99.0 FL) 81.2 MCH (27.0 - 31.0 PG) 26.0 L MCHC (33.0 - 37.0 G/DL) 32.1 L RDW (11.5 - 14.5 %) 24.7 H Plt Count (130 - 400 /CUMM) 115 L MPV (7.4 - 10.4 FL) 8.7 Gran % (42.2 - 75.2 %) 84.5 H Lymphocytes % (20.5 - 51.1 %) 8.0 L Monocytes % (1.7 - 9.3 %) 6.5 Eosinophils % (0 - 5 %) 0.8 Basophils % (0.0 - 2.0 %) 0.2 Absolute Granulocytes (1.4 - 6.5 /CUMM) 6.8 H Segmented Neutrophils (42.2 - 75.2 %) 86 H Band Neutrophils (0.0 - 5.0 %) 1 Absolute Lymphocytes (1.2 - 3.4 /CUMM) 0.6 L Lymphocytes (20.5 - 51.1 %) 6 L Monocytes (1.7 - 9.3 %) 5 Absolute Monocytes (0.10 - 0.60 /CUMM) 0.5 Eosinophils (0 - 5.0 %) 2 Absolute Eosinophils (0.0 - 0.7 /CUMM) 0.1 Absolute Basophils (0.0 - 0.2 /CUMM) 0 Platelet Estimate (ADEQUATE) ADEQUATE Polychromasia 1+ Hypochromic-Microcytic 1+ Poikilocytosis 1+ Ovalocytes 1+ Other Body Source Fld Total RBCs Counted (%) 100 10/25 2020 Coagulation PT (9.4 - 12.5 SEC) 49.1 *H INR (0.90 - 1.19) 4.44 *H APTT (25 - 37 SEC) 78 H Fibrinogen Activity (200 - 393 MG/DL) 214 Hematology CBC w Diff NO MAN DIFF REQ WBC (4.8 - 10.8 /CUMM) 8.0 RBC (4.20 - 5.40 /CUMM) 3.06 L Hgb (12.0 - 16.0 G/DL) 7.7 L Hct (37 - 47 %) 24.9 L MCV (81.0 - 99.0 FL) 81.3 MCH (27.0 - 31.0 PG) 25.1 L MCHC (33.0 - 37.0 G/DL) 30.9 L RDW (11.5 - 14.5 %) 25.6 H Plt Count (130 - 400 /CUMM) 122 L MPV (7.4 - 10.4 FL) 8.6 Gran % (42.2 - 75.2 %) 85.1 H Lymphocytes % (20.5 - 51.1 %) 7.6 L Monocytes % (1.7 - 9.3 %) 6.5 Eosinophils % (0 - 5 %) 0.4 Basophils % (0.0 - 2.0 %) 0.4 Absolute Granulocytes (1.4 - 6.5 /CUMM) 6.8 H Absolute Lymphocytes (1.2 - 3.4 /CUMM) 0.6 L Absolute Monocytes (0.10 - 0.60 /CUMM) 0.5 Absolute Eosinophils (0.0 - 0.7 /CUMM) 0 Absolute Basophils (0.0 - 0.2 /CUMM) 0 Last 24 Hours of Tha Results: No recent cultures Recent Imaging Studies: CT of the chest, abdomen and pelvis October 25 reveals new pleural effusions, left greater than right, with associated compressive atelectasis; stable bilateral pulmonary masses compatible with metastatic disease; new mild left-sided hydroureteronephrosis, with a 7 mm stone in the distal left ureter; numerous hepatic masses compatible with metastatic disease Modified barium swallow October 25 reveals pooling of contrast within the valleculae with all 3 consistencies with silent penetration and eventual aspiration with nectar and honey consistency Doppler of the right upper extremity reveals no change in the occlusive thrombus in the right basilic vein with interval clearing of the thrombus in the right cephalic vein Assessment/Plan ID Impression: Overall condition continues to deteriorate, with slight worsening of her renal failure, felt to be most likely secondary to the Vancomycin, which was discontinued 8 days ago, with her Vancomycin level 2 days ago still elevated, at 19. She remains afebrile and her white blood cell count is now normal off antibiotics, with no evidence for any new infectious process. Her recent CT scan revealed left hydroureteronephrosis, with Urology evaluation noted. Her prognosis remains poor, with metastatic adenocarcinoma of the rectum, but she and her family continue to decline hospice, which continues to be recommended by Oncology. Suggestion: 1. Would continue to pursue efforts for hospice 2. Continue to follow off antibiotics Will no longer follow at this time but please call with any questions
[2017-10-26 15:57] VITALS: BP 124/50
[2017-10-27] VITALS: BP 126/60
[2017-10-27 05:08] LABS: ABSOLUTE BASOPHIL COUNT 0 /CUMM (0.0-0.2); ABSOLUTE EOSINOPHIL COUNT 0.1 /CUMM (0.0-0.7); ABSOLUTE GRANULOCYTE CT 9.5 /CUMM (1.4-6.5); ABSOLUTE MONOCYTE COUNT 0.7 /CUMM (0.10-0.60); BASOPHIL % 0.3 % (0.0-2.0); EOSINOPHIL % 0.5 % (0-5); GRANULOCYTE % 84.2 % (42.2-75.2); HEMATOCRIT 25.7 % (37-47); MEAN CORPUSCULAR HGB 25.6 PG (27.0-31.0); MEAN CORPUSCULAR HGB CONC 31.3 G/DL (33.0-37.0); MEAN CORPUSCULAR VOLUME 81.7 FL (81.0-99.0); MEAN PLATELET VOLUME 8.7 FL (7.4-10.4); PLATELET COUNT 121 /CUMM (130-400); RBC DISTRIBUTION WIDTH 27.6 % (11.5-14.5); RED BLOOD CELL CT 3.14 /CUMM (4.20-5.40); WHITE BLOOD CELL COUNT 11.3 /CUMM (4.8-10.8)
--- NOTE | 2017-10-27 07:07 | PN- Resident CRCU ---
Ravin Adkins 10/27/17 0706: Subjective HPI/CRCU Issues: She was comfortable this morning. No new complains. Vitamin stable overnight. She was afebrile. Since she had vaginal bleed, reached out to surgery and [facility]. 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 #3 Thrombocytopenia #4 Hypoglycemia #5 Right upper extremity venous thrombus in the setting of heparin induced thrombocytopenia and underlying malignancy #6 Metabolic encephalopathy #7 Metastatic rectal cancer with metastasis to liver and lung, was on palliative radiation currently on hold due to her poor functioning status to be transferred #8 poor oral intake/nutritional deficiency Objective Vital Signs & I&O Last 8 Hrs of Vitals and I&O: Intake & Output 10/27 0800 Intake Total 900 Output Total 685 Balance 215 Intake, Blood 100 Product Intake, IV 800 Output, 600 Drainage Output, Stool 10 Output, Urine 75 Exam General Appearance: awake Other Physical Findings: General Exam: AOx3, palor, No acute distress, Skin: No rashes;HEENT: PERRLA, EOMI;Neck: Supple, No JVDl; No cervical lymphadenopathy;CVS: Reg Rate, Normal S1 ,S2, No MGR; Resp: Normal air entry, bilateral ronchi and rales;Abdomen: Soft, No tenderness, Normal Bowel Sounds, colostomy bag in place, and also has an ulcer with bag in place for collection, edema extending upto the abdomen;Neuro: Normal Speech, Strength 4/5 b/l x 4 extremities, Sensation intact, CN III-XII NL , Reflexes 2+;Extremities: No cyanosis, pitting pedal edema 2 + Current Medications: Current Medications Sig/Rose Start time Last Medication Dose Route Stop Time Status Admin Albumin Human 25 GM Q8 10/24 1145 AC 10/27 IV 1351 Benzonatate 100 MG TID 10/09 2099 AC 10/27 PO 1351 Guaifenesin 10 ML Q6P PRN 10/09 2014 AC 10/10 PO 0524 Levothyroxine Sodium 0.025 MG DAILY AC 10/23 0700 AC 10/27 PO 0705 Morphine Sulfate 2 MG Q4P PRN 10/12 1115 AC 10/27 IV 1353 Ondansetron HCl 4 MG Q8P PRN 10/06 1845 AC 10/23 IV 1139 Pantoprazole Sodium 40 MG DAILY 10/13 0900 AC 10/27 IV 0822 Polyethylene Glycol 17 GM DAILY PRN 10/08 1145 AC 10/10 PO 0856 Senna/Docusate Sodium 2 TAB DAILY PRN 10/11 0900 AC 10/15 PO 0951 Sodium Bicarbonate 100 MEQ Q10H 10/26 1600 AC 10/27 Dextrose/Water 1,000 ML IV 0414 Tamsulosin HCl 0.4 MG DAILY 10/26 0915 AC 10/27 PO 0821 Vitamin A/Vitamin D 1 BROWN BID 10/20 2100 AC 10/27 TOP 0822 Impression/Plan Impression/Problem List Impression: Ms Russo is a 76-year-old woman with PMHx of 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 Montoya), coronary artery disease status post stents, type 2 diabetes, hypothyroidism hyperlipidemia, hypertension who was brought to the hospital after she was found to have severe back pain and altered mental status and found to have had hypoglycemia upto 22 mg/dl at the time of presentation which could have resulted in altered mentation. She was transferred to ICU for management of hypoglycemia and altered mental status, and was transferred back to Gen. medicine service after stabilizing her clinically. Since she had heparin associated/heparin-induced thrombocytopenia and needed a Argatroban drip and so was transferred back to intensive care unit for further monitoring. Pertient lab findings in the last 24 hrs: W BC 9.9 (10/19)-->15.9 (10/22)-->14.3 (10/24)--> 9.0 (10/25)-->8.1(10/26)-->11.3(10/27) Hemoglobin 8.9(10/19)-->8.8 (10/22)-->8.1(10/24)-->7.8(10/26) Platelets 71(10/19)-->159(10/22)-->175(10/24)-->118 *(10/25)-->115*(10/26)-->121(10/27) HCO3 16, chloride 120 (likely acidosis from fluids)-->122(10/24) BUN 28(10/19)-->32 (10/22)-->34(10/24) Creatinine 1.2(10/19)-->1.7 (10/22)-->2.1(10/24 and 10/25) Sodium 145 (10/25) HCO3 14(10/25)-->17(10/26) anion gap 9-->11(10/26) No new radiology in the last 24 hrs. Plan: 1. MRSA bronchitis: She was treated for MRSA bronchitis with vancomycin for 7 days. Currently off antibiotics. She has been eating regular diet, against the speech therapists recs, as per the pts family's request. They understand the risks vs benefits. Speech re-evaluation pending. Pt refusing NG tube. 2. Klebsiella UTI: Completed a course of Ceftaz for 7 days 3. Borderline hypotension: Borderline blood pressure 90/50 at the time of admission. She received adequate hydration. After which blood pressure continued to improve. Her blood pressure remained stable at around 110-120 throughout her stay. Can continue her home medication at the time of discharge. Doesn't require any central line or vasopressor management. 4. Anemia likely ABLA: Guaiac positive stools, given history of rectal cancer and recent surgery. Hemoglobin and hematocrit remained stable without significant drop. Likely vaginal bleed, and await recommendation from ObGyn. 5. 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 His workup was negative however. She was restarted on enoxaparin and her platelets again declined. Hematology is recommending to avoid heparin at this time. Given renal insufficiency, new anticoagulants cannot be used in the treatment of DVT in her case. She should be started on warfarin at some point. If any procedures are planned, would start warfarin after the procedure. Given her use of argatroban, which also affects INR, her goal should be INR > 4, which will put her at a higher risk of bleeding. Need to discuss w/ the family. An acute drop in H&H could be attributed to vancomycin too, which is possible. Given her bleeding, Argatroban on hold. -No heparin or heparin products and future -Closer monitoring for any bleeding. -Monitor platelet count daily 6. Hypoglycemia: Resolved, we will monitor with Accu-Cheks 3 times a day and at bedtime 7. 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 She is status post diverting colostomy on 09/26/17 and was subsequently discharged to an extended care facility. She continues with pain presumably from the rectal mass. She has expressed her desire to move forward with palliative radiation therapy. Palliative external beam radiation treatments will therefore proceed as planned. A total of 10 doses (3000 cGy) is being prescribed. She has received two treatments only 10/10/17. and 10/11/2017 8. Dysphagia: Patient reported difficulty swallowing, concern for aspiration. Await recs from the swallow eval. 9 . GARIMA: This has been worsening kidney function, likely prerenal in her case due to increasing third spacing and decreased intravascular volume. Other potential causes are vancomycin use acute tubular necrosis. Random vancomycin level 18,7 is clearly elevated even after discontinuation of vancomycin more than 7 days only would indicate a possible etiology. Start albumin for increasing intravascular volume. She also has Non anion gap metabolic acidosis which would be tx'ed w/ D5W+HCO3, which would likely correct hypernatremia also. Newly found incidental reading of 7mm ureteric stone, contributing to both hematuria, drop in H&H, and GARIMA. Flomax has been added to her regimen. Other medical problems: Hypothyroidism- Continue LT4 Hyperlipidemia -stopped Lipitor History of diabetes mellitus- Accu-Cheks. Held home meds given hypoglycemia Hypertension - held home medication quinalapril given hypotension at time of admission Coronary artery disease status post stents Disposition: Goals of care discussion ongoing. She is full code. Problem List: 1. GARIMA (acute kidney injury) 2. UTI (urinary tract infection) 3. DVT (deep venous thrombosis) Pain Ratin Tomorrow's Labs & Rationales: back Plan DVT/Prophylaxis: mechanical Code Status: Full Code Dennis Hunter MD 10/27/17 2151: Attending MD Review Statement Attending Sign Off Attending Cosign Statement: I have: examined this patient, reviewed [facility] EMR data, discussd w/resident/PA/ APPLICATIONS CONSULTANT, discussed mgmt plan w/pt, agreed w/resident/PA/APPLICATIONS CONSULTANT, amended to note. Other Findings: The patient was seen and discussed with resident. Renal function unchanged since yesterday. No obvious bleeding. Concern regarding potential infection in vaginal area. The patient will be seen by her colorectal surgeon tomorrow and decide if any further imaging needed. Recent CT negative. Will continue to follow WBC, H/H , BEP.
--- NOTE | 2017-10-27 07:58 | PN- Urology ---
Subjective Subjective: Denies pain Objective Vital Signs and I&Os Vital Signs Date Time Temp Pulse Resp B/P B/P Pulse O2 O2 Flow FiO2 Mean Ox Delivery Rate 10/27 0000 98.3 110 22 126/60 97 Nasal 3.0L Cannula 10/27 0000 97 Nasal 3.0L Cannula 10/26 2257 92 Nasal 3.0L Cannula 10/26 1600 92 Room Air 10/26 1557 97.8 98 16 124/50 92 Room Air 10/26 1139 77 130/70 10/26 0800 95 Room Air 10/26 0800 98.9 94 20 130/56 95 Room Air Intake & Output 10/27 0800 10/27 0000 10/26 1600 10/26 0800 10/26 0000 10/25 1600 Intake Total 900 400 920 743 635.2 852 Output Total 725 209 8775 890 797 3607 Balance 215 -500 -230 468 -189.8 -318 Intake, Blood 100 350 Product Intake, IV 800 400 820 743 635.2 502 Intake, Oral 100 Number 1 Bowel Movements Output, 219 681 3722 200 725 Drainage Output, Other 500 1150 Output, Stool 10 25 25 Output, Urine 75 100 50 50 75 20 Abd: soft. Genitalia: edwards draining light tamika urine Laboratory Tests 10/27 0400 Chemistry Sodium (137 - 145 mmol/L) 145 Potassium (3.5 - 5.1 mmol/L) 4.2 Chloride (98 - 107 mmol/L) 115 H Carbon Dioxide (22 - 30 mmol/L) 19 L Anion Gap (5 - 16) 11 BUN (7 - 17 mg/dL) 36 H Creatinine (0.5 - 1.0 mg/dL) 2.3 H Estimated GFR (>60 ml/min) 21 L Glucose (65 - 99 mg/dL) 144 H Calcium (8.4 - 10.2 mg/dL) 8.3 L Phosphorus (2.5 - 4.5 mg/dL) 4.0 Magnesium (1.6 - 2.3 mg/dL) 1.6 Total Bilirubin (0.2 - 1.3 mg/dL) 2.6 H AST (14 - 36 U/L) 34 ALT (9 - 52 U/L) 30 Albumin (3.5 - 5.0 g/dL) 2.6 L Hematology CBC w Diff MAN DIFF ORDERED WBC (4.8 - 10.8 /CUMM) 11.3 H RBC (4.20 - 5.40 /CUMM) 3.14 L Hgb (12.0 - 16.0 G/DL) 8.0 L Hct (37 - 47 %) 25.7 L MCV (81.0 - 99.0 FL) 81.7 MCH (27.0 - 31.0 PG) 25.6 L MCHC (33.0 - 37.0 G/DL) 31.3 L RDW (11.5 - 14.5 %) 27.6 H Plt Count (130 - 400 /CUMM) 121 L MPV (7.4 - 10.4 FL) 8.7 Gran % (42.2 - 75.2 %) 84.2 H Lymphocytes % (20.5 - 51.1 %) 8.7 L Monocytes % (1.7 - 9.3 %) 6.3 Eosinophils % (0 - 5 %) 0.5 Basophils % (0.0 - 2.0 %) 0.3 Absolute Granulocytes (1.4 - 6.5 /CUMM) 9.5 H Segmented Neutrophils (42.2 - 75.2 %) 88 H Band Neutrophils (0.0 - 5.0 %) 5 Absolute Lymphocytes (1.2 - 3.4 /CUMM) 1.0 L Lymphocytes (20.5 - 51.1 %) 5 L Monocytes (1.7 - 9.3 %) 2 Absolute Monocytes (0.10 - 0.60 /CUMM) 0.7 H Absolute Eosinophils (0.0 - 0.7 /CUMM) 0.1 Absolute Basophils (0.0 - 0.2 /CUMM) 0 Platelet Estimate (ADEQUATE) DECREASED Hypochromic-Microcytic 2+ Anisocytosis 2+ Microcytic Cells 1+ Stomatocytes 1+ Ray Cells 2+ Elliptocytes 1+ Assessment/Plan Assessment/Plan Imp: 1. L ureteral stone 2. L renal pelvic stones Plan: 1. Would continue to manage L ureteral stone conservatively given overall clinical situation 2. Continue flomax
[2017-10-27 08:00] VITALS: BP 136/70
--- NOTE | 2017-10-27 08:09 | PN- Oncology ---
Subjective Subjective: She remains about the same. She has no new symptoms. Review of Systems: Constitutional: Reports: Fatigue,. Denies: chills, fever. Gastrointestinal: Denies: abdominal pain. Musculoskeletal: Denies: back pain. All Other Systems: Reviewed and Negative Objective Vital Signs and I&Os Vital Signs Date Time Temp Pulse Resp B/P B/P Pulse O2 O2 Flow FiO2 Mean Ox Delivery Rate 10/27 98.3 110 22 126/60 97 Nasal 3.0L Cannula 10/27 0000 97 Nasal 3.0L Cannula 10/26 2257 92 Nasal 3.0L Cannula 10/26 1600 92 Room Air 10/26 1557 97.8 98 16 124/50 92 Room Air 10/26 1139 77 130/70 Intake & Output 10/27 0810/27 0000 10/26 1600 10/26 0800 10/26 0000 Intake Total 900 400 920 743 635.2 Output Total 558 429 5807 275 825 Balance 215 -500 -230 468 -189.8 Intake, Blood 100 Product Intake, IV 800 400 820 743 635.2 Intake, Oral 100 Number 1 Bowel Movements Output, 894 520 8663 200 725 Drainage Output, Other 500 Output, Stool 10 25 25 Output, Urine 75 100 50 50 75 Physical Exam: General Appearance: alert, awake, obese Ears, Nose, Throat: dry mucosa Respiratory: rhonchi, quiet respiration, intermittent cough, decrease breath sound anteriorly Cardiovascular: tachycardia, no murmurs Gastrointestinal: normal bowel sounds, tenderness, LLQ colostomy in place, abdominal bag in place with clear and yellow fluid : edwards in place. Dark urine. Extremities: upper and lower extremity edema 3+ throughout Neurologic/Psych: awake, alert, oriented, slow to answer questions. Current Medications: Current Medications Sig/Rose Start time Last Medication Dose Route Stop Time Status Admin Albumin Human 25 GM Q8 10/24 1145 AC 10/27 IV 0519 Benzonatate 100 MG TID 10/09 2099 AC 10/26 PO 2140 Guaifenesin 10 ML Q6P PRN 10/09 2014 AC 10/10 PO 0524 Levothyroxine Sodium 0.025 MG DAILY AC 10/23 0700 AC 10/27 PO 0705 Magnesium Sulfate 1 GM ONCE ONE 10/26 0745 DC 10/26 Dextrose/Water 100 ML IV 10/26 1144 0805 Morphine Sulfate 2 MG Q4P PRN 10/12 1115 AC 10/26 IV 2150 Ondansetron HCl 4 MG Q8P PRN 10/06 1845 AC 10/23 IV 1139 Pantoprazole Sodium 40 MG DAILY 10/13 0900 AC 10/26 IV 0805 Polyethylene Glycol 17 GM DAILY PRN 10/08 1145 AC 10/10 PO 0856 Senna/Docusate Sodium 2 TAB DAILY PRN 10/11 09 AC 10/15 PO 0951 Sodium Bicarbonate 100 MEQ Q10H 10/26 1600 AC 10/27 Dextrose/Water 1,000 ML IV 0414 Sodium Bicarbonate 100 MEQ Q12H 10/25 1245 DC 10/26 Dextrose/Water 1,000 ML IV 0326 Tamsulosin HCl 0.4 MG DAILY 10/26 0915 AC 10/26 PO 1139 Vitamin A/Vitamin D 1 BROWN BID 10/20 2100 AC 10/26 TOP 2140 Results Last 24 Hours of Lab Results: Laboratory Tests 10/27 0400 Chemistry Sodium (137 - 145 mmol/L) 145 Potassium (3.5 - 5.1 mmol/L) 4.2 Chloride (98 - 107 mmol/L) 115 H Carbon Dioxide (22 - 30 mmol/L) 19 L Anion Gap (5 - 16) 11 BUN (7 - 17 mg/dL) 36 H Creatinine (0.5 - 1.0 mg/dL) 2.3 H Estimated GFR (>60 ml/min) 21 L Glucose (65 - 99 mg/dL) 144 H Calcium (8.4 - 10.2 mg/dL) 8.3 L Phosphorus (2.5 - 4.5 mg/dL) 4.0 Magnesium (1.6 - 2.3 mg/dL) 1.6 Total Bilirubin (0.2 - 1.3 mg/dL) 2.6 H AST (14 - 36 U/L) 34 ALT (9 - 52 U/L) 30 Albumin (3.5 - 5.0 g/dL) 2.6 L Hematology CBC w Diff MAN DIFF ORDERED WBC (4.8 - 10.8 /CUMM) 11.3 H RBC (4.20 - 5.40 /CUMM) 3.14 L Hgb (12.0 - 16.0 G/DL) 8.0 L Hct (37 - 47 %) 25.7 L MCV (81.0 - 99.0 FL) 81.7 MCH (27.0 - 31.0 PG) 25.6 L MCHC (33.0 - 37.0 G/DL) 31.3 L RDW (11.5 - 14.5 %) 27.6 H Plt Count (130 - 400 /CUMM) 121 L MPV (7.4 - 10.4 FL) 8.7 Gran % (42.2 - 75.2 %) 84.2 H Lymphocytes % (20.5 - 51.1 %) 8.7 L Monocytes % (1.7 - 9.3 %) 6.3 Eosinophils % (0 - 5 %) 0.5 Basophils % (0.0 - 2.0 %) 0.3 Absolute Granulocytes (1.4 - 6.5 /CUMM) 9.5 H Segmented Neutrophils (42.2 - 75.2 %) 88 H Band Neutrophils (0.0 - 5.0 %) 5 Absolute Lymphocytes (1.2 - 3.4 /CUMM) 1.0 L Lymphocytes (20.5 - 51.1 %) 5 L Monocytes (1.7 - 9.3 %) 2 Absolute Monocytes (0.10 - 0.60 /CUMM) 0.7 H Absolute Eosinophils (0.0 - 0.7 /CUMM) 0.1 Absolute Basophils (0.0 - 0.2 /CUMM) 0 Platelet Estimate (ADEQUATE) DECREASED Hypochromic-Microcytic 2+ Anisocytosis 2+ Microcytic Cells 1+ Stomatocytes 1+ Ray Cells 2+ Elliptocytes 1+ Assessment/Plan Assessment/Recommendations: Ms. 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 She was seen in radiation oncology office and was noted to be in severe pain. She was sent to [facility] for evaluation. On admission, she was noted to be somnolent and hypoglycemic. Hypoglycemic has improved. She remains critically ill with poor prognosis. Blood work is stable. Creatinine remains elevated. Platelet count remains stable along with hemoglobin. She is on argatroban drip for DVT. US of the RUE demonstrate residual DVT. Her overal prognosis remains poor. She has not improved much since addition. Worsening bilirubin is concerning for worsening metastatic disease. She may need stent placement if worsening. She may need RUQ US to evaluate for obstruction. This will need to be discussed with patient if she want invasive procedure. If she does not, RUQ US may not manager of change. She is not a candidate for systemic therapy or radiation. I would recommend supportive care. Thrombocytopenia: -avoid all heparin product -continue argatroban Anemia: -monitor for bleeding RUE DVT: -transition to oral anticoagulant once stable -continue anticoagulation if not bleeding GARIMA: -management as per primary/nephrology Metastatic rectal cancer: -f/u outpatient -recommended DNR/DNI and hospice Please call [phone] with any questions or concerns. Problem List: 1. Multiple lesions of metastatic malignancy 2. DVT (deep venous thrombosis) 3. Thrombocytopenia 4. Anemia 5. Abnormal LFTs 6. Rectal carcinoma
--- NOTE | 2017-10-27 14:01 | PN- Nephrology ---
Assessment/Plan Nephrology Assessment: GARIMA likely vancomycin. Cr stable. Acidosis better with IV bicarbonate. Continue supportive care. Overall prognosis grim. Jorje Martinez MD Suggestion: . Subjective Subjective: Pt in ICU. U.O. 200 cc/24 hrs. large fluid loss via external bag. BP okay Objective Vital Signs and I&Os F in ICU BP 136/70 98 110 Lungs clear Cor RRR Abd soft 2-3 U.O 200 cc/24 hrs Results Pertinent Lab Results: Laboratory Tests 10/27 10/26 0400 0558 Chemistry Sodium (137 - 145 mmol/L) 145 147 H Potassium (3.5 - 5.1 mmol/L) 4.2 4.2 Chloride (98 - 107 mmol/L) 115 H 119 H Carbon Dioxide (22 - 30 mmol/L) 19 L 17 L Anion Gap (5 - 16) 11 11 BUN (7 - 17 mg/dL) 36 H 37 H Creatinine (0.5 - 1.0 mg/dL) 2.3 H 2.3 H Estimated GFR (>60 ml/min) 21 L 21 L Glucose (65 - 99 mg/dL) 144 H 111 H Calcium (8.4 - 10.2 mg/dL) 8.3 L 8.2 L Phosphorus (2.5 - 4.5 mg/dL) 4.0 4.0 Magnesium (1.6 - 2.3 mg/dL) 1.6 1.5 L Total Bilirubin (0.2 - 1.3 mg/dL) 2.6 H 2.0 H AST (14 - 36 U/L) 34 35 ALT (9 - 52 U/L) 30 28 Albumin (3.5 - 5.0 g/dL) 2.6 L 2.2 L Coagulation PT (9.4 - 12.5 SEC) 44.0 *H INR (0.90 - 1.19) 3.98 H APTT (25 - 37 SEC) 54 H Fibrinogen Activity (200 - 393 MG/DL) 212 Hematology CBC w Diff MAN DIFF ORDERED MAN DIFF ORDERED WBC (4.8 - 10.8 /CUMM) 11.3 H 8.1 RBC (4.20 - 5.40 /CUMM) 3.14 L 2.98 L Hgb (12.0 - 16.0 G/DL) 8.0 L 7.8 L Hct (37 - 47 %) 25.7 L 24.2 L MCV (81.0 - 99.0 FL) 81.7 81.2 MCH (27.0 - 31.0 PG) 25.6 L 26.0 L MCHC (33.0 - 37.0 G/DL) 31.3 L 32.1 L RDW (11.5 - 14.5 %) 27.6 H 24.7 H Plt Count (130 - 400 /CUMM) 121 L 115 L MPV (7.4 - 10.4 FL) 8.7 8.7 Gran % (42.2 - 75.2 %) 84.2 H 84.5 H Lymphocytes % (20.5 - 51.1 %) 8.7 L 8.0 L Monocytes % (1.7 - 9.3 %) 6.3 6.5 Eosinophils % (0 - 5 %) 0.5 0.8 Basophils % (0.0 - 2.0 %) 0.3 0.2 Absolute Granulocytes (1.4 - 6.5 /CUMM) 9.5 H 6.8 H Segmented Neutrophils (42.2 - 75.2 %) 88 H 86 H Band Neutrophils (0.0 - 5.0 %) 5 1 Absolute Lymphocytes (1.2 - 3.4 /CUMM) 1.0 L 0.6 L Lymphocytes (20.5 - 51.1 %) 5 L 6 L Monocytes (1.7 - 9.3 %) 2 5 Absolute Monocytes (0.10 - 0.60 /CUMM) 0.7 H 0.5 Eosinophils (0 - 5.0 %) 2 Absolute Eosinophils (0.0 - 0.7 /CUMM) 0.1 0.1 Absolute Basophils (0.0 - 0.2 /CUMM) 0 0 Platelet Estimate (ADEQUATE) DECREASED ADEQUATE Polychromasia 1+ Hypochromic-Microcytic 2+ 1+ Poikilocytosis 1+ Anisocytosis 2+ Microcytic Cells 1+ Ovalocytes 1+ Stomatocytes 1+ Ray Cells 2+ Elliptocytes 1+ Other Body Source Fld Total RBCs Counted (%) 100 10/25 Coagulation PT (9.4 - 12.5 SEC) 49.1 *H INR (0.90 - 1.19) 4.44 *H APTT (25 - 37 SEC) Cancelled 78 H Fibrinogen Activity (200 - 393 MG/DL) 214 Hematology CBC w Diff NO MAN DIFF REQ WBC (4.8 - 10.8 /CUMM) 8.0 RBC (4.20 - 5.40 /CUMM) 3.06 L Hgb (12.0 - 16.0 G/DL) 7.7 L Hct (37 - 47 %) 24.9 L MCV (81.0 - 99.0 FL) 81.3 MCH (27.0 - 31.0 PG) 25.1 L MCHC (33.0 - 37.0 G/DL) 30.9 L RDW (11.5 - 14.5 %) 25.6 H Plt Count (130 - 400 /CUMM) 122 L MPV (7.4 - 10.4 FL) 8.6 Gran % (42.2 - 75.2 %) 85.1 H Lymphocytes % (20.5 - 51.1 %) 7.6 L Monocytes % (1.7 - 9.3 %) 6.5 Eosinophils % (0 - 5 %) 0.4 Basophils % (0.0 - 2.0 %) 0.4 Absolute Granulocytes (1.4 - 6.5 /CUMM) 6.8 H Absolute Lymphocytes (1.2 - 3.4 /CUMM) 0.6 L Absolute Monocytes (0.10 - 0.60 /CUMM) 0.5 Absolute Eosinophils (0.0 - 0.7 /CUMM) 0 Absolute Basophils (0.0 - 0.2 /CUMM) 0 10/25 10/25 1515 1135 Coagulation APTT (25 - 37 SEC) 80 H Hematology CBC w Diff NO MAN DIFF REQ WBC (4.8 - 10.8 /CUMM) 10.4 RBC (4.20 - 5.40 /CUMM) 3.28 L Hgb (12.0 - 16.0 G/DL) 8.6 L Hct (37 - 47 %) 26.6 L MCV (81.0 - 99.0 FL) 81.2 MCH (27.0 - 31.0 PG) 26.1 L MCHC (33.0 - 37.0 G/DL) 32.2 L RDW (11.5 - 14.5 %) 23.7 H Plt Count (130 - 400 /CUMM) 136 MPV (7.4 - 10.4 FL) 8.4 Gran % (42.2 - 75.2 %) 83.3 H Lymphocytes % (20.5 - 51.1 %) 8.4 L Monocytes % (1.7 - 9.3 %) 7.4 Eosinophils % (0 - 5 %) 0.8 Basophils % (0.0 - 2.0 %) 0.1 Absolute Granulocytes (1.4 - 6.5 /CUMM) 8.7 H Absolute Lymphocytes (1.2 - 3.4 /CUMM) 0.9 L Absolute Monocytes (0.10 - 0.60 /CUMM) 0.8 H Absolute Eosinophils (0.0 - 0.7 /CUMM) 0.1 Absolute Basophils (0.0 - 0.2 /CUMM) 0 10/25 10/25 0643 0500 Chemistry Sodium (137 - 145 mmol/L) 145 Potassium (3.5 - 5.1 mmol/L) 4.4 Chloride (98 - 107 mmol/L) 122 H Carbon Dioxide (22 - 30 mmol/L) 14 L Anion Gap (5 - 16) 9 BUN (7 - 17 mg/dL) 37 H Creatinine (0.5 - 1.0 mg/dL) 2.1 H Estimated GFR (>60 ml/min) 23 L Glucose (65 - 99 mg/dL) 137 H Calcium (8.4 - 10.2 mg/dL) 7.8 L Phosphorus (2.5 - 4.5 mg/dL) 4.1 Magnesium (1.6 - 2.3 mg/dL) 1.7 Total Bilirubin (0.2 - 1.3 mg/dL) 1.5 H Direct Bilirubin (< 0.4 mg/dL) 1.3 H AST (14 - 36 U/L) 43 H ALT (9 - 52 U/L) 31 Lactate Dehydrogenase (313 - 618 U/L) 1162 H Albumin (3.5 - 5.0 g/dL) 1.8 L Coagulation PT (9.4 - 12.5 SEC) 41.8 H INR (0.90 - 1.19) 3.78 H Fibrinogen Activity (200 - 393 MG/DL) 238 Hematology CBC w Diff NO MAN DIFF REQ MAN DIFF ORDERED WBC (4.8 - 10.8 /CUMM) 7.8 9.0 RBC (4.20 - 5.40 /CUMM) 2.52 L 2.69 L Hgb (12.0 - 16.0 G/DL) 6.5 *L 6.8 *L Hct (37 - 47 %) 20.3 L 21.7 L MCV (81.0 - 99.0 FL) 80.7 L 80.6 L MCH (27.0 - 31.0 PG) 25.9 L 25.2 L MCHC (33.0 - 37.0 G/DL) 32.1 L 31.3 L RDW (11.5 - 14.5 %) 25.3 H 24.5 H Plt Count (130 - 400 /CUMM) 118 L 137 MPV (7.4 - 10.4 FL) 9.7 8.4 Gran % (42.2 - 75.2 %) 84.7 H 83.3 H Lymphocytes % (20.5 - 51.1 %) 8.5 L 8.2 L Monocytes % (1.7 - 9.3 %) 5.7 7.5 Eosinophils % (0 - 5 %) 0.8 0.8 Basophils % (0.0 - 2.0 %) 0.3 0.2 Absolute Granulocytes (1.4 - 6.5 /CUMM) 6.6 H 7.5 H Segmented Neutrophils (42.2 - 75.2 %) 76 H Band Neutrophils (0.0 - 5.0 %) 5 Absolute Lymphocytes (1.2 - 3.4 /CUMM) 0.7 L 0.7 L Lymphocytes (20.5 - 51.1 %) 10 L Monocytes (1.7 - 9.3 %) 6 Absolute Monocytes (0.10 - 0.60 /CUMM) 0.4 0.7 H Eosinophils (0 - 5.0 %) 1 Absolute Eosinophils (0.0 - 0.7 /CUMM) 0.1 0.1 Absolute Basophils (0.0 - 0.2 /CUMM) 0 0 Metamyelocytes (0.0 - 1.0 %) 2 H Platelet Estimate (ADEQUATE) DECREASED Hypochromic-Microcytic 2+ Anisocytosis 1+ Microcytic Cells 1+ Stomatocytes FEW Retic Count (0.5 - 2.0 %) 1.60 0430 2335 Coagulation APTT (25 - 37 SEC) 59 H
--- NOTE | 2017-10-27 14:38 | Event Note ---
Event Note Event Note: Since there was a continued loss of blood from the vaginal area, there was a concern for any infection or bleeding. Upon examination, she was found to have friable vaginal tissue, with a possible tracts. Since she underwent Radiation therapy, and also have rectal cancer, development rectovaginal tract was considered in differential. Discussed with Dr. Montoya and mentioned to him that we are worried about infection in her case, and if advise on getting any further imaging to rule out any deeper infections. Given her poor prognosis, Dr. Montoya didnt recommned any further imaging and he will see the pt in the am. Also reached out to ObGyn to have them see the pt. Discussed w/ Dr. Hunter.
[2017-10-27 15:44] VITALS: BP 132/70
--- NOTE | 2017-10-27 17:42 | Cons- OBGYN ---
General Information and HPI Consulting Request Date of Consult: 10/27/17 Requested By: Dennis Hunter MD Reason for Consult: vaginal discharge bloody/fecal Source of Information: patient, old records Exam Limitations: confusion History of Present Illness: Pt with metastatic rectal cancer s/p radiation rx with bloody vaginal d/c Allergies/Medications Allergies: Coded Allergies: heparin (Severe, Thrombocytopenia 10/17/17) shellfish derived (Intermediate, G.I. DISTRESS FROM SCALLOPS 09/14/17) Home Med List: Atorvastatin Calcium 40 MG TABLET 1 TAB PO DAILY CHOLESTROL (Reported) Glimepiride 4 MG TABLET 1 TAB PO DAILY DM (Reported) Levothyroxine Sodium 25 MCG TABLET 1 TAB PO DAILY THYROID (Reported) Multivitamin (Daily Multiple Vitamin) 1 EACH TABLET 1 TAB PO DAILY VITAMIN SUPPORT (Reported) Oxycodone HCl/Acetaminophen (Percocet 5-325 MG Tablet) 5 MG-325 MG TABLET 1-2 TAB PO Q4-6 PRN PAIN Quinapril HCl 20 MG TABLET 1 TAB PO DAILY HTN (Reported) Sitagliptin Phos/Metformin HCl (Janumet 50-1,000 MG Tablet) 50 MG-1,000 MG TABLET 1 TAB PO BID DM (Reported) Current Medications: Current Medications Sig/Rose Start time Last Medication Dose Route Stop Time Status Admin Albumin Human 25 GM Q8 10/24 1145 AC 10/27 IV 1351 Benzonatate 100 MG TID 10/09 2100 AC 10/27 PO 1351 Guaifenesin 10 ML Q6P PRN 10/09 2014 AC 10/10 PO 0524 Levothyroxine Sodium 0.025 MG DAILY AC 10/23 0700 AC 10/27 PO 0705 Morphine Sulfate 2 MG Q4P PRN 10/12 1115 AC 10/27 IV 1353 Ondansetron HCl 4 MG Q8P PRN 10/06 1845 AC 10/23 IV 1139 Pantoprazole Sodium 40 MG DAILY 10/13 0900 AC 10/27 IV 0822 Polyethylene Glycol 17 GM DAILY PRN 10/08 1145 AC 10/10 PO 0856 Senna/Docusate Sodium 2 TAB DAILY PRN 10/11 0900 AC 10/15 PO 0951 Sodium Bicarbonate 100 MEQ Q10H 10/26 1600 AC 10/27 Dextrose/Water 1,000 ML IV 1551 Tamsulosin HCl 0.4 MG DAILY 10/26 0915 AC 10/27 PO 0821 Vitamin A/Vitamin D 1 BROWN BID 10/20 2100 10/27 TOP 0822 Past History Medical History Neurological: NONE EENT: NONE Cardiovascular: CAD (s/p stents), hypertension, hyperlipidemia, HEART MURMUR Respiratory: NONE Gastrointestinal: COLORECTAL CANCER Hepatic: mets to liver/lung Renal: nephrolithiasis Musculoskeletal: NONE Psychiatric: NONE Endocrine: diabetes, hypothyroidism, obesity Blood Disorders: NONE Cancer(s): colon/rectal cancer ANTIQUE DEALER/Reproductive: NONE Surgical History Pertinent Surgical History: colon resection Family History Relations & Conditions If Any: FATHER FH: heart disease MOTHER FH: cancer of digestive organ BROTHER FH: heart attack SISTER FHx: lung cancer BROTHER Psychosocial History Where Do You Live? [facility] Who Do You Live With? self Primary Language: Upper Sorbian Smoking Status: Former Smoker ETOH Use: denies use Living Will? unknown Power of Bag Shop Worker/HCP? unknown Functional Ability ADLs Needs Assist: dressing, eating, toileting, bathing. IADLs Needs Assist: shopping, housework, finances, food prep, telephone, transportation, medication admin. Employment History Employment: Retired Retired? yes Review of Systems Review of Systems Constitutional: Reports: no symptoms. EENTM: Denies: blurred vision, double vision, visual changes. Cardiovascular: Denies: chest pain. Respiratory: Denies: cough. GI: Denies: abdominal pain, distention, nausea, vomiting. Exam & Diagnostic Data Vital Signs and I&O Vital Signs Date Time Temp Pulse Resp B/P B/P Pulse O2 O2 Flow FiO2 Mean Ox Delivery Rate 10/27 1600 95 Nasal 3.0L Cannula 10/27 1544 97.9 104 20 132/70 96 Nasal 3.0L Cannula 10/27 0821 110 136/70 10/27 0800 95 Nasal 3.0L Cannula 10/27 0800 98.0 110 18 136/70 95 Nasal 3.0L Cannula 10/27 0000 98.3 110 22 126/60 97 Nasal 3.0L Cannula 10/27 0000 97 Nasal 3.0L Cannula 10/26 2256 92 Nasal 3.0L Cannula Intake & Output 10/27 1600 10/27 0800 05/03 0000 / 1600 10/26 0800 05 0000 Intake Total 930 900 400 920 743 635.2 Output Total 1050 333 948 2754 275 825 Balance -120 215 -500 -230 468 -189.8 Intake, Blood 100 Product Intake, IV 900 800 400 820 743 635.2 Intake, Oral 30 100 Number 1 1 Bowel Movements Output, 1000 573 048 4078 200 725 Drainage Output, Other 500 Output, Stool 10 25 25 Output, Urine 50 75 100 50 50 75 Physical Exam General Appearance: awake, obese Head: atraumatic Neck: normal inspection Respiratory: normal breath sounds Gastrointestinal: normal bowel sounds, soft, non-tender, no organomegaly Rectal: tenderness Pelvic: BUS EG erythema and edema skin breakdown at perinum and stool at introitus VAG probable stool in vagina cx and uterus and adnexa not palpable secondary to obesity Assessment/Plan Assessment/Plan Pt who is reciently s/p pelvic radiation threapy for rectal cancer who may have a rectovaginal fistula or just bleeding from friable tissue there is no signifigant bleeding at present and no obvious fistula present. Plan. no attempt at repair would be made on this patient secondary to recient radiation and metastatic Ca diagnosis. Diagnostic procedures should be defered until and if pt recovers from the acute efects of the radiation. Consult Acknowledgment - Thank you for your consult request. Attending MD Review Statement Attending Statement Attending MD Statement: examined this patient, discussed w/nursing
[2017-10-27 23:50] VITALS: BP 124/64
[2017-10-28 04:53] LABS: ABSOLUTE BASOPHIL COUNT 0 /CUMM (0.0-0.2); ABSOLUTE EOSINOPHIL COUNT 0 /CUMM (0.0-0.7); ABSOLUTE GRANULOCYTE CT 6.5 /CUMM (1.4-6.5); ABSOLUTE LYMPH COUNT 0.6 /CUMM (1.2-3.4); ABSOLUTE MONOCYTE COUNT 0.4 /CUMM (0.10-0.60); BASOPHIL % 0.4 % (0.0-2.0); EOSINOPHIL % 0.6 % (0-5); GRANULOCYTE % 85.9 % (42.2-75.2); HEMATOCRIT 23.5 % (37-47); MEAN CORPUSCULAR HGB 26.2 PG (27.0-31.0); MEAN CORPUSCULAR VOLUME 81.9 FL (81.0-99.0); MEAN PLATELET VOLUME 9.9 FL (7.4-10.4); PLATELET COUNT 98 /CUMM (130-400); RBC DISTRIBUTION WIDTH 27.6 % (11.5-14.5); RED BLOOD CELL CT 2.87 /CUMM (4.20-5.40); WHITE BLOOD CELL COUNT 7.6 /CUMM (4.8-10.8)
--- NOTE | 2017-10-28 05:44 | PN- Resident CRCU ---
See Addendum Subjective HPI/CRCU Issues: Pt is not doing very well. She was found to be in mild distress when I saw her this morning, but did not complain of any shortness of breath. No chest pain. Vitals remain stable. Overnight she required increased oxygen requirements, who needed upto 4L from 2L. No fever. Cxr was obtained that revealed new finding of consolidation. She was evaluated by the ObGyn yesterday. Objective Vital Signs & I&O Last 8 Hrs of Vitals and I&O: Intake & Output 10/28 1600 Intake Total 950 Output Total 1325 Balance -375 Intake, Blood 100 Product Intake, IV 800 Intake, Oral 50 Output, Other 1225 Output, Urine 100 Exam General Appearance: awake Current Medications: Current Medications Sig/Rose Start time Last Medication Dose Route Stop Time Status Admin Albumin Human 25 GM Q8 10/24 1145 AC 10/28 IV 1406 Benzonatate 100 MG TID 10/09 2100 AC 10/28 PO 0804 Guaifenesin 10 ML Q6P PRN 10/09 2014 AC 10/10 PO 0524 Levothyroxine Sodium 12.5 MCG DAILY 10/29 09 AC IV Levothyroxine Sodium 0.025 MG DAILY AC 10/23 0700 DC 10/28 PO 0545 Magnesium Sulfate 1 GM ONCE ONE 10/27 2130 DC 10/27 Dextrose/Water 100 ML IV 10/28 0129 2144 Morphine Sulfate 2 MG Q4P PRN 10/12 1115 AC 10/28 IV 1349 Ondansetron HCl 4 MG Q8P PRN 10/06 1845 AC 10/23 IV 1139 Pantoprazole Sodium 40 MG DAILY 10/13 0900 AC 10/28 IV 0804 Polyethylene Glycol 17 GM DAILY PRN 10/08 1145 AC 10/10 PO 0856 Senna/Docusate Sodium 2 TAB DAILY PRN 10/11 0900 AC 10/15 PO 0951 Sodium Bicarbonate 50 MEQ Q10H 10/28 0800 AC 10/28 Dextrose/Water 1,000 ML IV 1940 Sodium Bicarbonate 100 MEQ Q10H 10/26 1600 DC 10/28 Dextrose/Water 1,000 ML IV 0303 Tamsulosin HCl 0.4 MG DAILY 10/26 0915 AC 10/28 PO 0804 Vitamin A/Vitamin D 1 BROWN BID 10/20 2100 AC 10/28 TOP 0810 Impression/Plan Impression/Problem List Impression: Ms Russo is a 76-year-old woman with PMHx of 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 Montoya), coronary artery disease status post stents, type 2 diabetes, hypothyroidism hyperlipidemia, hypertension who was brought to the hospital after she was found to have severe back pain and altered mental status and found to have had hypoglycemia upto 22 mg/dl at the time of presentation which could have resulted in altered mentation. She was transferred to ICU for management of hypoglycemia and altered mental status, and was transferred back to Gen. medicine service after stabilizing her clinically. Since she had heparin associated/heparin-induced thrombocytopenia and needed a Argatroban drip and so was transferred back to intensive care unit for further monitoring. Pertient lab findings in the last 24 hrs: W BC 9.9 (10/19)-->15.9 (10/22)-->14.3 (10/24)--> 9.0 (10/25)-->8.1(10/26)-->11.3(10/27)- ->7.6(10/28) Hemoglobin 8.9(10/19)-->8.8 (10/22)-->8.1(10/24)-->7.8(10/26)-->7.5(10/28) Platelets 71(10/19)-->159(10/22)-->175(10/24)-->118 *(10/25)-->115*(10/26)-->121(10/27)-- >98(10/28) HCO3 16, chloride 120 (likely acidosis from fluids)-->122(10/24) BUN 28(10/19)-->32 (10/22)-->34(10/24) Creatinine 1.2(10/19)-->1.7 (10/22)-->2.1(10/24 and 10/25) Sodium 145 (10/25) HCO3 14(10/25)-->17(10/26)-->21(10/28) anion gap 9-->11(10/26) Cxr: 10/28/17 1. New airspace opacification within the perihilar right lung, suspicious for pneumonia in the proper clinical setting. 2. Numerous bilateral lung nodules, better demonstrated on recent CT. 3. Suggestion of trace pleural effusions. Plan: 1. MRSA bronchitis: She was treated for MRSA bronchitis with vancomycin for 7 days. Currently off antibiotics. She was on regular diet, against the speech therapists recs, as per the pts family's request. They understand the risks vs benefits. Speech re-evaluation pending. Pt refusing NG tube. Discussed with the family about the risks vs benefits. Pt made NPO as per pts family, pending swallow eval. Chest x ray s/o of consolidation w/ no white count, or fever. Watch off abx. If she has fever, or has s/o infection would culture again and consider starting abx. Avoid vancomycin. 2. Klebsiella UTI: Completed a course of Ceftaz for 7 days 3. Borderline hypotension: Borderline blood pressure 90/50 at the time of admission. She received adequate hydration. Can continue her home medication at the time of discharge. Doesn't require any central line or vasopressor management. 4. Anemia likely ABLA: Guaiac positive stools, given history of rectal cancer and recent surgery. Hemoglobin and hematocrit remained stable without significant drop. Likely vaginal bleed, and also has vaginal ulcers likely secondary to radiation. 5. 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 His workup was negative however. She was restarted on enoxaparin and her platelets again declined. Hematology is recommending to avoid heparin at this time. Given renal insufficiency, new anticoagulants cannot be used in the treatment of DVT in her case. She should be started on warfarin at some point. If any procedures are planned, would start warfarin after the procedure. Given her use of argatroban, which also affects INR, her goal should be INR > 4, which will put her at a higher risk of bleeding. Need to discuss w/ the family. An acute drop in H&H could be attributed to vancomycin too, which is possible. Given her bleeding, Argatroban on hold. -No heparin or heparin products and future -Closer monitoring for any bleeding. -Monitor platelet count daily 6. Hypoglycemia: Resolved, we will monitor with Accu-Cheks. Currently on D5W+ HCo3 7. 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 She is status post diverting colostomy on 09/26/17 and was subsequently discharged to an extended care facility. She continues with pain presumably from the rectal mass. She has expressed her desire to move forward with palliative radiation therapy. She has received two treatments only 10/10/17. and 10/11/2017. No further radiation and systemic chemo, as per Hem Onc. 8. Dysphagia: Patient reported difficulty swallowing, concern for aspiration. Await recs from the swallow eval. 9 . GARIMA: This has been worsening kidney function, likely prerenal in her case due to increasing third spacing and decreased intravascular volume. Other potential causes are vancomycin use acute tubular necrosis. Random vancomycin level was 18,7 which is clearly elevated even after discontinuation of vancomycin more than 7 days only would indicate a possible etiology. Continue albumin for increasing intravascular volume. She also has Non anion gap metabolic acidosis which would be tx'ed w/ D5W+HCO3, which would likely correct hypernatremia also. Newly found incidental reading of 7mm ureteric stone, contributing to both hematuria, drop in H&H, and GARIMA. Flomax has been added to her regimen. 10. Radiation induced vaginitis- was evaluated by ObGyn. No further recs. Requested an eval from the surgery. Await recs. Other medical problems: Hypothyroidism- Continue LT4 Hyperlipidemia -stopped Lipitor History of diabetes mellitus- Accu-Cheks. Held home meds given hypoglycemia Hypertension - held home medication quinalapril given hypotension at time of admission Coronary artery disease status post stents NPO for now. Disposition: Goals of care discussion ongoing. She is full code. Problem List: 1. GARIMA (acute kidney injury) 2. Pneumonia 3. UTI (urinary tract infection) Pain Ratin Tomorrow's Labs & Rationales: back Plan DVT/Prophylaxis: mechanical Code Status: Full Code
--- NOTE | 2017-10-28 06:24 | RADIOLOGY REPORT ---
EXAMINATION: XR PORTABLE CHEST CLINICAL INFORMATION: Increased oxygen requirement COMPARISON: CT 10/25/2017 TECHNIQUE: Portable frontal view of the chest was obtained. FINDINGS: There is extensive airspace opacification throughout the perihilar right lung, new compared to prior CT. There is redemonstration of multiple bilateral lung nodules, better delineated on recent CT. No evidence of pneumothorax. There is suggestion of trace pleural effusions. Cardiac silhouette appears near the upper limits of normal. Degenerative changes are noted in the spine. IMPRESSION: 1. New airspace opacification within the perihilar right lung, suspicious for pneumonia in the proper clinical setting. 2. Numerous bilateral lung nodules, better demonstrated on recent CT. 3. Suggestion of trace pleural effusions.
--- NOTE | 2017-10-28 08:34 | PN- Oncology ---
Subjective Subjective: She denies any new pain. She has no fever or chills. There was some concern regarding vaginal bleeding with fistula formation. She did get some improvement with blood transfusion. Review of Systems Constitutional: Reports: malaise, weakness. Denies: chills, diaphoresis, fever. Cardiovascular: Denies: chest pain. Respiratory: Reports: cough. Denies: short of breath, sputum production. Gastrointestinal: Denies: abdominal pain. Musculoskeletal: Denies: back pain. All Other Systems: Reviewed and Negative Objective Vital Signs and I&Os Vital Signs Date Time Temp Pulse Resp B/P B/P Pulse O2 O2 Flow FiO2 Mean Ox Delivery Rate 10/28 0804 93 140/74 10/28 0429 112 94 Nasal 4.0L Cannula 10/28 0000 94 Nasal 3.0L Cannula 10/27 2350 97.6 107 26 124/64 94 Nasal 3.0L Cannula 10/27 1600 95 Nasal 3.0L Cannula 10/27 1544 97.9 104 20 132/70 96 Nasal 3.0L Cannula Intake & Output 10/28 1600 10/28 0800 10/28 0000 10/27 1600 10/27 0800 10/27 0000 Intake Total 900 1030 930 900 400 Output Total 61 110 1050 685 900 Balance 839 920 -120 215 -500 Intake, Blood 100 Product Intake, IV 900 1030 900 800 400 Intake, Oral 0 30 Number 1 Bowel Movements Output, 0 25 1000 600 300 Drainage Output, Other 500 Output, Stool 1 25 10 Output, Urine 60 60 50 75 100 Physical Exam: General Appearance: alert, awake, obese Ears, Nose, Throat: dry mucosa Respiratory: rhonchi, quiet respiration, intermittent cough, decrease breath sound anteriorly Cardiovascular: tachycardia, no murmurs Gastrointestinal: normal bowel sounds, tenderness, LLQ colostomy in place, abdominal bag in place with clear and yellow fluid : edwards in place. Dark urine. Extremities: upper and lower extremity edema 3+ throughout Neurologic/Psych: awake, alert, oriented, slow to answer questions. Current Medications: Current Medications Sig/Rose Start time Last Medication Dose Route Stop Time Status Admin Albumin Human 25 GM Q8 10/24 1145 AC 10/28 IV 0544 Benzonatate 100 MG TID 10/09 2099 AC 10/28 PO 0804 Guaifenesin 10 ML Q6P PRN 10/09 2014 AC 10/10 PO 0524 Levothyroxine Sodium 0.025 MG DAILY AC 10/23 0700 AC 10/28 PO 0545 Magnesium Sulfate 1 GM ONCE ONE 10/27 2130 DC 10/27 Dextrose/Water 100 ML IV 10/28 012 214 Morphine Sulfate 2 MG Q4P PRN 10/12 111 AC 10/28 IV 0416 Ondansetron HCl 4 MG Q8P PRN 10/06 1845 AC 10/23 IV 1139 Pantoprazole Sodium 40 MG DAILY 10/13 09 AC 10/28 IV 0804 Polyethylene Glycol 17 GM DAILY PRN 10/08 1145 AC 10/10 PO 0856 Senna/Docusate Sodium 2 TAB DAILY PRN 10/11 09 AC 10/15 PO 0951 Sodium Bicarbonate 50 MEQ Q10H 10/28 0800 AC Dextrose/Water 1,000 ML IV Sodium Bicarbonate 100 MEQ Q10H 10/26 1600 DC 10/28 Dextrose/Water 1,000 ML IV 0303 Tamsulosin HCl 0.4 MG DAILY 10/26 0915 AC 10/28 PO 0804 Vitamin A/Vitamin D 1 BROWN BID 10/20 2100 10/28 TOP 0810 Results Last 24 Hours of Lab Results: Laboratory Tests 10/28 0400 Chemistry Sodium (137 - 145 mmol/L) 144 Potassium (3.5 - 5.1 mmol/L) 3.8 Chloride (98 - 107 mmol/L) 111 H Carbon Dioxide (22 - 30 mmol/L) 21 L Anion Gap (5 - 16) 12 BUN (7 - 17 mg/dL) 36 H Creatinine (0.5 - 1.0 mg/dL) 2.2 H Estimated GFR (>60 ml/min) 22 L Glucose (65 - 99 mg/dL) 161 H Calcium (8.4 - 10.2 mg/dL) 8.3 L Phosphorus (2.5 - 4.5 mg/dL) 3.8 Magnesium (1.6 - 2.3 mg/dL) 1.9 Total Bilirubin (0.2 - 1.3 mg/dL) 2.8 H AST (14 - 36 U/L) 23 ALT (9 - 52 U/L) 20 Albumin (3.5 - 5.0 g/dL) 2.7 L Hematology CBC w Diff MAN DIFF ORDERED WBC (4.8 - 10.8 /CUMM) 7.6 RBC (4.20 - 5.40 /CUMM) 2.87 L Hgb (12.0 - 16.0 G/DL) 7.5 L Hct (37 - 47 %) 23.5 L MCV (81.0 - 99.0 FL) 81.9 MCH (27.0 - 31.0 PG) 26.2 L MCHC (33.0 - 37.0 G/DL) 32.0 L RDW (11.5 - 14.5 %) 27.6 H Plt Count (130 - 400 /CUMM) 98 L MPV (7.4 - 10.4 FL) 9.9 Gran % (42.2 - 75.2 %) 85.9 H Lymphocytes % (20.5 - 51.1 %) 7.8 L Monocytes % (1.7 - 9.3 %) 5.3 Eosinophils % (0 - 5 %) 0.6 Basophils % (0.0 - 2.0 %) 0.4 Absolute Granulocytes (1.4 - 6.5 /CUMM) 6.5 Segmented Neutrophils (42.2 - 75.2 %) 88 H Band Neutrophils (0.0 - 5.0 %) 1 Absolute Lymphocytes (1.2 - 3.4 /CUMM) 0.6 L Lymphocytes (20.5 - 51.1 %) 8 L Monocytes (1.7 - 9.3 %) 3 Absolute Monocytes (0.10 - 0.60 /CUMM) 0.4 Absolute Eosinophils (0.0 - 0.7 /CUMM) 0 Absolute Basophils (0.0 - 0.2 /CUMM) 0 Platelet Estimate (ADEQUATE) DECREASED Polychromasia 1+ Hypochromic-Microcytic 1+ Poikilocytosis 2+ Target Cells FEW Ovalocytes 1+ [place] Cells FEW Elliptocytes FEW Other Body Source Fld Total RBCs Counted (%) 100 Assessment/Plan Assessment/Recommendations: Ms. 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 She was seen in radiation oncology office and was noted to be in severe pain. She was sent to [facility] for evaluation. On admission, she was noted to be somnolent and hypoglycemic. Hypoglycemic has improved. She remains critically ill with poor prognosis. Anemia and thrombocytopenia are worse today. Bilirubin is elevated. Polly is negative. DIC has been negative. She was noted to have some vaginal bleeding. TTP is less likely with her lack of schistocytes. She may need RUQ US if worsening bilirubin. She will continue with supportive measure right now. She is not a candidate for systemic therapy. She declined to answer questions regarding code status this morning. Thrombocytopenia: -avoid all heparin product -continue argatroban Anemia: -monitor for bleeding -supportive measure RUE DVT: -transition to oral anticoagulant once stable GARIMA: -management as per primary/nephrology Metastatic rectal cancer: -f/u outpatient -recommended DNR/DNI and hospice Please call [phone] with any questions or concerns. Problem List: 1. Multiple lesions of metastatic malignancy 2. Pneumonia 3. GARIMA (acute kidney injury) 4. Thrombocytopenia 5. Rectal carcinoma 6. Metastases to the liver
--- NOTE | 2017-10-28 11:02 | PN- Nephrology ---
Assessment/Plan Nephrology Assessment: GARIMA due to vancomycin. BP okay and urine leach tank tender (excellent management by ICU team). U.O low but in the 150-200 range over past few days in part due to ATN but ? component of prerenal azotemia. Bicarbonate better. Continue supportive care. Given multiple comorbidity pt is a very poor dialysis candidate but no need for that at this time in any case. Jorje Martinez MD Suggestion: . Subjective Subjective: Pt comfortable in ICU. remains oliguric. Objective Vital Signs and I&Os F in ICU 140/74 93 97.6 Lungs clear Cor RRR Abd soft Ext 2+edema Results Pertinent Lab Results: Laboratory Tests 10/28 10/27 0400 0400 Chemistry Sodium (137 - 145 mmol/L) 144 145 Potassium (3.5 - 5.1 mmol/L) 3.8 4.2 Chloride (98 - 107 mmol/L) 111 H 115 H Carbon Dioxide (22 - 30 mmol/L) 21 L 19 L Anion Gap (5 - 16) 12 11 BUN (7 - 17 mg/dL) 36 H 36 H Creatinine (0.5 - 1.0 mg/dL) 2.2 H 2.3 H Estimated GFR (>60 ml/min) 22 L 21 L Glucose (65 - 99 mg/dL) 161 H 144 H Calcium (8.4 - 10.2 mg/dL) 8.3 L 8.3 L Phosphorus (2.5 - 4.5 mg/dL) 3.8 4.0 Magnesium (1.6 - 2.3 mg/dL) 1.9 1.6 Total Bilirubin (0.2 - 1.3 mg/dL) 2.8 H 2.6 H AST (14 - 36 U/L) 23 34 ALT (9 - 52 U/L) 20 30 Albumin (3.5 - 5.0 g/dL) 2.7 L 2.6 L Hematology CBC w Diff MAN DIFF ORDERED MAN DIFF ORDERED WBC (4.8 - 10.8 /CUMM) 7.6 11.3 H RBC (4.20 - 5.40 /CUMM) 2.87 L 3.14 L Hgb (12.0 - 16.0 G/DL) 7.5 L 8.0 L Hct (37 - 47 %) 23.5 L 25.7 L MCV (81.0 - 99.0 FL) 81.9 81.7 MCH (27.0 - 31.0 PG) 26.2 L 25.6 L MCHC (33.0 - 37.0 G/DL) 32.0 L 31.3 L RDW (11.5 - 14.5 %) 27.6 H 27.6 H Plt Count (130 - 400 /CUMM) 98 L 121 L MPV (7.4 - 10.4 FL) 9.9 8.7 Gran % (42.2 - 75.2 %) 85.9 H 84.2 H Lymphocytes % (20.5 - 51.1 %) 7.8 L 8.7 L Monocytes % (1.7 - 9.3 %) 5.3 6.3 Eosinophils % (0 - 5 %) 0.6 0.5 Basophils % (0.0 - 2.0 %) 0.4 0.3 Absolute Granulocytes (1.4 - 6.5 /CUMM) 6.5 9.5 H Segmented Neutrophils (42.2 - 75.2 %) 88 H 88 H Band Neutrophils (0.0 - 5.0 %) 1 5 Absolute Lymphocytes (1.2 - 3.4 /CUMM) 0.6 L 1.0 L Lymphocytes (20.5 - 51.1 %) 8 L 5 L Monocytes (1.7 - 9.3 %) 3 2 Absolute Monocytes (0.10 - 0.60 /CUMM) 0.4 0.7 H Absolute Eosinophils (0.0 - 0.7 /CUMM) 0 0.1 Absolute Basophils (0.0 - 0.2 /CUMM) 0 0 Platelet Estimate (ADEQUATE) DECREASED DECREASED Polychromasia 1+ Hypochromic-Microcytic 1+ 2+ Poikilocytosis 2+ Anisocytosis 2+ Microcytic Cells 1+ Target Cells FEW Ovalocytes 1+ Stomatocytes 1+ Ray Cells FEW 2+ Elliptocytes FEW 1+ Other Body Source Fld Total RBCs Counted (%) 100 10/26 10/25 0558 2330 Chemistry Sodium (137 - 145 mmol/L) 147 H Potassium (3.5 - 5.1 mmol/L) 4.2 Chloride (98 - 107 mmol/L) 119 H Carbon Dioxide (22 - 30 mmol/L) 17 L Anion Gap (5 - 16) 11 BUN (7 - 17 mg/dL) 37 H Creatinine (0.5 - 1.0 mg/dL) 2.3 H Estimated GFR (>60 ml/min) 21 L Glucose (65 - 99 mg/dL) 111 H Calcium (8.4 - 10.2 mg/dL) 8.2 L Phosphorus (2.5 - 4.5 mg/dL) 4.0 Magnesium (1.6 - 2.3 mg/dL) 1.5 L Total Bilirubin (0.2 - 1.3 mg/dL) 2.0 H AST (14 - 36 U/L) 35 ALT (9 - 52 U/L) 28 Albumin (3.5 - 5.0 g/dL) 2.2 L Coagulation PT (9.4 - 12.5 SEC) 44.0 *H INR (0.90 - 1.19) 3.98 H APTT (25 - 37 SEC) 54 H Cancelled Fibrinogen Activity (200 - 393 MG/DL) 212 Hematology CBC w Diff MAN DIFF ORDERED WBC (4.8 - 10.8 /CUMM) 8.1 RBC (4.20 - 5.40 /CUMM) 2.98 L Hgb (12.0 - 16.0 G/DL) 7.8 L Hct (37 - 47 %) 24.2 L MCV (81.0 - 99.0 FL) 81.2 MCH (27.0 - 31.0 PG) 26.0 L MCHC (33.0 - 37.0 G/DL) 32.1 L RDW (11.5 - 14.5 %) 24.7 H Plt Count (130 - 400 /CUMM) 115 L MPV (7.4 - 10.4 FL) 8.7 Gran % (42.2 - 75.2 %) 84.5 H Lymphocytes % (20.5 - 51.1 %) 8.0 L Monocytes % (1.7 - 9.3 %) 6.5 Eosinophils % (0 - 5 %) 0.8 Basophils % (0.0 - 2.0 %) 0.2 Absolute Granulocytes (1.4 - 6.5 /CUMM) 6.8 H Segmented Neutrophils (42.2 - 75.2 %) 86 H Band Neutrophils (0.0 - 5.0 %) 1 Absolute Lymphocytes (1.2 - 3.4 /CUMM) 0.6 L Lymphocytes (20.5 - 51.1 %) 6 L Monocytes (1.7 - 9.3 %) 5 Absolute Monocytes (0.10 - 0.60 /CUMM) 0.5 Eosinophils (0 - 5.0 %) 2 Absolute Eosinophils (0.0 - 0.7 /CUMM) 0.1 Absolute Basophils (0.0 - 0.2 /CUMM) 0 Platelet Estimate (ADEQUATE) ADEQUATE Polychromasia 1+ Hypochromic-Microcytic 1+ Poikilocytosis 1+ Ovalocytes 1+ Other Body Source Fld Total RBCs Counted (%) 100 10/25 151 Coagulation PT (9.4 - 12.5 SEC) 49.1 *H INR (0.90 - 1.19) 4.44 *H APTT (25 - 37 SEC) 78 H Fibrinogen Activity (200 - 393 MG/DL) 214 Hematology CBC w Diff NO MAN DIFF REQ NO MAN DIFF REQ WBC (4.8 - 10.8 /CUMM) 8.0 10.4 RBC (4.20 - 5.40 /CUMM) 3.06 L 3.28 L Hgb (12.0 - 16.0 G/DL) 7.7 L 8.6 L Hct (37 - 47 %) 24.9 L 26.6 L MCV (81.0 - 99.0 FL) 81.3 81.2 MCH (27.0 - 31.0 PG) 25.1 L 26.1 L MCHC (33.0 - 37.0 G/DL) 30.9 L 32.2 L RDW (11.5 - 14.5 %) 25.6 H 23.7 H Plt Count (130 - 400 /CUMM) 122 L 136 MPV (7.4 - 10.4 FL) 8.6 8.4 Gran % (42.2 - 75.2 %) 85.1 H 83.3 H Lymphocytes % (20.5 - 51.1 %) 7.6 L 8.4 L Monocytes % (1.7 - 9.3 %) 6.5 7.4 Eosinophils % (0 - 5 %) 0.4 0.8 Basophils % (0.0 - 2.0 %) 0.4 0.1 Absolute Granulocytes (1.4 - 6.5 /CUMM) 6.8 H 8.7 H Absolute Lymphocytes (1.2 - 3.4 /CUMM) 0.6 L 0.9 L Absolute Monocytes (0.10 - 0.60 /CUMM) 0.5 0.8 H Absolute Eosinophils (0.0 - 0.7 /CUMM) 0 0.1 Absolute Basophils (0.0 - 0.2 /CUMM) 0 0 05/01 1135 Coagulation APTT (25 - 37 SEC) 80 H U.O. 135 cc/24 hours (clearer on exam)
--- NOTE | 2017-10-28 12:11 | Event Note ---
Event Note Event Note: She contined to have some respiratory difficulty, and an cxr was done this am which showed possible right sided consolidation. She has been on a diet at the request of the pt and her family members, and there was a concern for aspiration which the family understood. Discussed that there is a possibility that she is aspirating given her inability to swallow well, and the family wished to be npo for now. The hope was to have an READ tube as per the family, and provide her nutrition. Requested swallow evaluation again, and discussed w/ the family.
[2017-10-28 16:00] VITALS: BP 140/73
--- NOTE | 2017-10-28 19:28 | Event Note ---
Event Note Event Note: Family requesting to feed the patient. Discussed with Dr. Weir he said okay to feed the patient as long as the patient family aware of the risk of aspiration and also possible intubation. Discussed with daughter at bedside, made aware of the risk of possible aspiration and intubation if need be. Yumiko she understands the consequeces.
[2017-10-29] VITALS: BP 148/64
[2017-10-29 05:47] LABS: ABSOLUTE BASOPHIL COUNT 0 /CUMM (0.0-0.2); ABSOLUTE EOSINOPHIL COUNT 0 /CUMM (0.0-0.7); ABSOLUTE GRANULOCYTE CT 7.4 /CUMM (1.4-6.5); ABSOLUTE MONOCYTE COUNT 0.4 /CUMM (0.10-0.60)
[2017-10-29 05:53] LABS: ABSOLUTE LYMPH COUNT 0.5 /CUMM (1.2-3.4); BASOPHIL % 0.1 % (0.0-2.0); PLATELET COUNT 91 /CUMM (130-400)
[2017-10-29 06:00] LABS: EOSINOPHIL % 0.5 % (0-5); GRANULOCYTE % 87.8 % (42.2-75.2); HEMATOCRIT 23.2 % (37-47); MEAN CORPUSCULAR HGB 25.4 PG (27.0-31.0); MEAN CORPUSCULAR HGB CONC 31.4 G/DL (33.0-37.0); MEAN CORPUSCULAR VOLUME 81.1 FL (81.0-99.0); MEAN PLATELET VOLUME 9.3 FL (7.4-10.4); RBC DISTRIBUTION WIDTH 26.5 % (11.5-14.5); RED BLOOD CELL CT 2.86 /CUMM (4.20-5.40); WHITE BLOOD CELL COUNT 8.5 /CUMM (4.8-10.8)
--- NOTE | 2017-10-29 07:03 | PN- Resident CRCU ---
Ravin Adkins 10/29/17 0702: Subjective HPI/CRCU Issues: She was dyspneic this am. She did not have any chest pain, palpitations. She was afebrile overnight. 24 Hour Events: Temperature 90.8, pulse rate 114, respiration 24, blood pressure 148/64, 95% on 4 L. Objective Vital Signs & I&O Last 8 Hrs of Vitals and I&O: Intake & Output 10/29 0800 Intake Total 836 Output Total 890 Balance -54 Intake, Blood 100 Product Intake, IV 736 Output, 720 Drainage Output, Stool 70 Output, Urine 100 Exam General Appearance: awake Other Physical Findings: General Exam: AOx3, palor, No acute distress, Skin: No rashes;HEENT: PERRLA, EOMI;Neck: Supple, No JVDl; No cervical lymphadenopathy;CVS: Reg Rate, Normal S1 ,S2, No MGR; Resp: Normal air entry, bilateral ronchi and rales; Abdomen: Soft, No tenderness, Normal Bowel Sounds, colostomy bag in place, and also has an ulcer with bag in place for collection, edema extending upto the abdomen;Neuro: Normal Speech, Strength 4/5 b/l x 4 extremities, Sensation intact, CN III-XII NL , Reflexes 2+;Extremities: No cyanosis, pitting pedal edema 2 + Current Medications: Current Medications Sig/Rose Start time Last Medication Dose Route Stop Time Status Admin Albumin Human 25 GM Q8 10/24 1145 AC 10/29 IV 0602 Benzonatate 100 MG TID 10/09 2100 AC 10/28 PO 0804 Guaifenesin 10 ML Q6P PRN 10/09 2014 AC 10/10 PO 0524 Levothyroxine Sodium 12.5 MCG DAILY 10/29 0900 AC 10/29 IV 0930 Lorazepam 0.5 MG ONCE ONE 10/29 1045 DC 10/29 IV 10/29 1046 1100 Magnesium Oxide 400 MG BID 10/29 0900 CAN PO 10/29 210 Morphine Sulfate 4 MG .STK-MED ONE 10/29 0141 DC IM 10/29 0142 Morphine Sulfate 2 MG Q4P PRN 10/12 1115 AC 10/29 IV 0830 Ondansetron HCl 4 MG Q8P PRN 10/06 1845 AC 10/23 IV 1139 Pantoprazole Sodium 40 MG DAILY 10/13 0900 AC 10/29 IV 1058 Polyethylene Glycol 17 GM DAILY PRN 10/08 1145 AC 10/10 PO 0856 Potassium Chloride 40 MEQ ONCE ONE 10/29 0730 CAN PO 10/29 0731 Senna/Docusate Sodium 2 TAB DAILY PRN 10/11 0900 AC 10/15 PO 0951 Sodium Bicarbonate 50 MEQ Q10H 10/28 0800 DC 10/29 Dextrose/Water 1,000 ML IV 0420 Tamsulosin HCl 0.4 MG DAILY 10/26 0915 AC 10/28 PO 0804 Vitamin A/Vitamin D 1 BROWN BID 10/20 2100 AC 10/29 TOP 1100 Impression/Plan Impression/Problem List Impression: Ms Russo is a 76-year-old woman with PMHx of 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 Montoya), coronary artery disease status post stents, type 2 diabetes, hypothyroidism hyperlipidemia, hypertension who was brought to the hospital after she was found to have severe back pain and altered mental status and found to have had hypoglycemia upto 22 mg/dl at the time of presentation which could have resulted in altered mentation. She was transferred to ICU for management of hypoglycemia and altered mental status, and was transferred back to Gen. medicine service after stabilizing her clinically. Since she had heparin associated/heparin-induced thrombocytopenia and needed a Argatroban drip and so was transferred back to intensive care unit for further monitoring. Pertient lab findings in the last 24 hrs: W BC 9.9 (10/19)-->15.9 (10/22)-->14.3 (10/24)--> 9.0 (10/25)-->8.1(10/26)-->11.3(10/27)- ->7.6(10/28)--> 8.5 (10/29) Hemoglobin 8.9(10/19)-->8.8 (10/22)-->8.1(10/24)-->7.8(10/26)-->7.5(10/28)--> 7.3 (10/29) Platelets 71(10/19)-->159(10/22)-->175(10/24)-->118 *(10/25)-->115*(10/26)-->121(10/27)-- >98(10/28)----> 91(10/29) HCO3 16, chloride 120 (likely acidosis from fluids)-->122(10/24) BUN 28(10/19)-->32 (10/22)-->34(10/24)--> 36(10/29) Creatinine 1.2(10/19)-->1.7 (10/22)-->2.1(10/24 and 10/25)-->2.2 (10/29) Sodium 145 (10/25) HCO3 14(10/25)-->17(10/26)-->21(10/28) anion gap 9-->11(10/26) Cxr: 10/29/17 1. Right perihilar airspace consolidation slightly decreased from prior study 10/28/2017. 2. Known pulmonary nodules. 3. Trace effusion stable. Plan: 1. MRSA bronchitis, Aspiration Pneumonia: She was treated for MRSA bronchitis with vancomycin for 7 days. Currently off antibiotics. She was on regular diet, against the speech therapists recs, as per the pts family's request. They understand the risks vs benefits. Speech re-evaluation pending. Pt refusing NG tube. Discussed with the family about the risks vs benefits. Pt made NPO as per pts family, pending swallow eval. Chest x ray s/o of consolidation w/ no white count, or fever. Watch off abx. If she has fever, or has s/o infection would culture again and consider starting abx. Avoid vancomycin. 2. Klebsiella UTI: Completed a course of Ceftaz for 7 days 3. Borderline hypotension: Borderline blood pressure 90/50 at the time of admission. She received adequate hydration. Can continue her home medication at the time of discharge. Doesn't require any central line or vasopressor management. 4. Anemia likely ABLA: Guaiac positive stools, given history of rectal cancer and recent surgery. Hemoglobin and hematocrit remained stable without significant drop. Likely vaginal bleed, and also has vaginal ulcers likely secondary to radiation. - Blood transfusion x 1 PRBC, but pt has been refusing blood work for type and cross match too. 5. 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 His workup was negative however. She was restarted on enoxaparin and her platelets again declined. Hematology is recommending to avoid heparin at this time. Given renal insufficiency, new anticoagulants cannot be used in the treatment of DVT in her case. She should be started on warfarin at some point. If any procedures are planned, would start warfarin after the procedure. Given her use of argatroban, which also affects INR, her goal should be INR > 4, which will put her at a higher risk of bleeding. Need to discuss w/ the family. An acute drop in H&H could be attributed to vancomycin too, which is possible. Given her bleeding, Argatroban on hold. -No heparin or heparin products and future -Closer monitoring for any bleeding. -Monitor platelet count daily 6. Hypoglycemia: Resolved, we will monitor with Accu-Cheks. Currently on D5W+ HCo3 7. 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 She is status post diverting colostomy on 09/26/17 and was subsequently discharged to an extended care facility. She continues with pain presumably from the rectal mass. She has expressed her desire to move forward with palliative radiation therapy. She has received two treatments only 10/10/17. and 10/11/2017. No further radiation and systemic chemo, as per Hem Onc. 8. Dysphagia: Patient reported difficulty swallowing, concern for aspiration. Await recs from the swallow eval. 9 . GARIMA: This has been worsening kidney function, likely prerenal in her case due to increasing third spacing and decreased intravascular volume. Other potential causes are vancomycin use acute tubular necrosis. Random vancomycin level was 18,7 which is clearly elevated even after discontinuation of vancomycin more than 7 days only would indicate a possible etiology. Continue albumin for increasing intravascular volume. She also has Non anion gap metabolic acidosis which would be tx'ed w/ D5W+HCO3, which would likely correct hypernatremia also. Newly found incidental reading of 7mm ureteric stone, contributing to both hematuria, drop in H&H, and GARIMA. Flomax has been added to her regimen. 10. Radiation induced vaginitis- was evaluated by ObGyn. No further recs. Requested an eval from the surgery. Await recs. Other medical problems: Hypothyroidism- Continue LT4 Hyperlipidemia -stopped Lipitor History of diabetes mellitus- Accu-Cheks. Held home meds given hypoglycemia Hypertension - held home medication quinalapril given hypotension at time of admission Coronary artery disease status post stents NPO for now. Disposition: Goals of care discussion ongoing. She is full code. Problem List: 1. GARIMA (acute kidney injury) 2. Pneumonia 3. UTI (urinary tract infection) 4. Thrombocytopenia Pain Ratin Tomorrow's Labs & Rationales: back Plan DVT/Prophylaxis: mechanical Code Status: Full Code Fredrick Fajardo MD 10/29/17 0945: Attending MD Review Statement Attending Sign Off Attending Cosign Statement: I have: examined this patient, reviewed avalbl EMR data, personally reviewd images, discussd w/resident/PA/DISASSEMBLER, discussed mgmt plan w/nicolle, discussed mgmt plan w/CM, discussed mgmt plan w/pt, agreed w/resident/PA/DISASSEMBLER, amended to note. Other Findings: IFredrick M.D. have examined this patient, reviewed available EMR data, personally reviewed images, discussed with resident/PA/DISASSEMBLER, discussed management plan with housestaff and nursing staff, discussed managment plan all of healthcare providers, discussed management plan with patient and/or family, agreed with resident/PA/DISASSEMBLER. The past history and parts of the chart have been autopopulated. Impression 76 year old woman * metastatic disease to the liver from rectal ca * MRSA pna and Klebsiella UTI - completed abx * RUE DVT * Thrombocytopenia * GARIMA Plan -off anticoagulants due to anemia, f/u heme/onc recommendations -f/u goals of care, ongoing conversations with family with assistance from palliative care -continue hydration -noted agreement regarding feeding despite risk of aspiration, the patient however does not have an appetite today -creatinine will be trended -synthroid for hypothyroidism -CXR and consideration for lasix given dyspnea -aspiration precautions DVT prophylaxis at all times GM hold Goals of care discussions will continue to be addressed
[2017-10-29 08:00] VITALS: BP 146/64
--- NOTE | 2017-10-29 09:46 | RADIOLOGY REPORT ---
EXAMINATION: XR PORTABLE CHEST CLINICAL INFORMATION: Leukocytosis, increased O2 requirement, new right perihilar airspace consolidation. COMPARISON: Portable chest 10/28/2017, 10/11/2017, CT chest 10/25/2017 TECHNIQUE: Portable semiupright AP view of the chest was obtained. FINDINGS: Right perihilar airspace consolidation is decreased in confluence and slightly decreased in size. Again, there are other background pulmonary opacities consistent with the pulmonary nodules, better appreciated on CT. The vascularity is normal. There is no appreciable change in trace effusion. Cardiopericardial silhouette is stable. IMPRESSION: 1. Right perihilar airspace consolidation slightly decreased from prior study 10/28/2017. 2. Known pulmonary nodules. 3. Trace effusion stable.
--- NOTE | 2017-10-29 16:44 | Event Note ---
Event Note Event Note: Goals of care discussion: We had an extensive conversation with the pts family, after they discussed with Ms Russo about the goals of care. As per the family, Ms Russo wished to be DNI only, with having CPR done to revive her. We explained to them clearly about DNR and DNI, but they wished to be DNI for now, and have the CPR done. I explained to them that it would be very ineffective resuscitative if there is not enough oxygenation, but the family wished to keep this status at this time; they will re-visit the code status if clnical status changes. Also discussed about the medications that are given for comfort measures, and they would like the team to use morphine and ativan as needed for now. They don' t wish to be given any more blood products or anticoagulants, and no pressors. They understand the risks. They also wished to have Ms Nguyễn being given diet, as per the familys discretion. Informed them of the risks of aspiration, and they understand. At this point, they were wishing to watch the clicnal status closely and make decisions on goals of care as needed. Discssued w/ the attending.
[2017-10-29 16:53] VITALS: BP 146/60
[2017-10-29 23:00] VITALS: BP 130/80
[2017-10-30 05:19] LABS: ABSOLUTE BASOPHIL COUNT 0 /CUMM (0.0-0.2); ABSOLUTE EOSINOPHIL COUNT 0 /CUMM (0.0-0.7); ABSOLUTE GRANULOCYTE CT 7.6 /CUMM (1.4-6.5); ABSOLUTE LYMPH COUNT 0.6 /CUMM (1.2-3.4); ABSOLUTE MONOCYTE COUNT 0.4 /CUMM (0.10-0.60); BASOPHIL % 0.1 % (0.0-2.0); EOSINOPHIL % 0.3 % (0-5); GRANULOCYTE % 88.5 % (42.2-75.2); HEMATOCRIT 24.4 % (37-47); MEAN CORPUSCULAR HGB 26.1 PG (27.0-31.0); MEAN CORPUSCULAR HGB CONC 31.9 G/DL (33.0-37.0); MEAN CORPUSCULAR VOLUME 81.7 FL (81.0-99.0); MEAN PLATELET VOLUME 8.9 FL (7.4-10.4); RBC DISTRIBUTION WIDTH 28.5 % (11.5-14.5); RED BLOOD CELL CT 2.98 /CUMM (4.20-5.40)
[2017-10-30 06:03] LABS: WHITE BLOOD CELL COUNT 8.6 /CUMM (4.8-10.8)
[2017-10-30 06:04] LABS: PLATELET COUNT 88 /CUMM (130-400)
[2017-10-30 08:15] VITALS: BP 128/64
--- NOTE | 2017-10-30 09:24 | PN- CRCU ---
Heather Mota 10/30/17 0924: Subjective HPI/Critical Care Issues: Patient is seen and examined this morning. She was lying comfortably without any complaints except one semi-chips because her mouth was dry. She denied any shortness of breath or pain. Her edema has improved overall. She remains afebrile and hemodynamically stable. Her hemoglobin is 7.8, hematocrit 24.4, platelet count 88 and her WBC count is normal. Objective Current Medications: Current Medications Sig/Rose Start time Last Medication Dose Route Stop Time Status Admin Albumin Human 25 GM Q8 10/24 1145 AC 10/30 IV 0520 Benzonatate 100 MG TID 10/09 2099 AC 10/28 PO 0804 Dextrose/Sodium 1,000 ML Q13H 10/30 929 AC 10/30 Chloride IV 10/30 2229 0931 Guaifenesin 10 ML Q6P PRN 10/09 2014 DC 10/10 PO 0524 Levothyroxine Sodium 12.5 MCG DAILY 10/29 0900 AC 10/30 IV 0930 Lorazepam 0.5 MG ONCE ONE 10/29 1045 DC 10/29 IV 10/29 1046 1100 Magnesium Sulfate 1 GM ONCE ONE 10/30 0915 AC 10/30 Dextrose/Water 100 ML IV 10/30 1314 0948 Magnesium Sulfate 1 GM ONCE ONE 10/29 1600 DC 10/29 Dextrose/Water 100 ML IV 10/29 1959 1641 Morphine Sulfate 2 MG Q4P PRN 10/12 1115 AC 10/30 IV 0930 Ondansetron HCl 4 MG Q8P PRN 10/06 1845 AC 10/23 IV 1139 Pantoprazole Sodium 40 MG DAILY 10/13 09 AC 10/30 IV 0930 Polyethylene Glycol 17 GM DAILY PRN 10/08 1145 AC 10/10 PO 0856 Senna/Docusate Sodium 2 TAB DAILY PRN 10/11 0900 AC 10/15 PO 0951 Tamsulosin HCl 0.4 MG DAILY 10/26 0915 AC 10/30 PO 0930 Vitamin A/Vitamin D 1 BROWN BID 10/20 2100 AC 10/30 TOP 0933 Vital Signs & I&O Last 24 Hrs of Vitals and I&O: Vital Signs Date Time Temp Pulse Resp B/P B/P Pulse O2 O2 Flow FiO2 Mean Ox Delivery Rate 10/30 814 97.2 110 24 128/64 92 Nasal 3.0L Cannula 10/30 0800 92 Nasal 3.0L Cannula 10/30 0000 97 Nasal 3.0L Cannula 10/29 2300 98.5 110 24 130/80 97 Nasal 3.0L Cannula 10/29 1653 97.0 113 26 146/60 80 Room Air 10/29 1600 Nasal 3.0L Cannula 10/29 1330 96 99 Nasal 3.0L Cannula Intake & Output 10/30 1600 10/30 0800 05 0000 Intake Total 100 200 Output Total 730 905 Balance -630 -705 Intake, Blood 100 100 Product Intake, IV 100 Output, 650 800 Drainage Output, Stool 25 Output, Urine 80 80 Exam General Appearance: awake, lethargic Head: atraumatic, normal appearance Neck: supple Respiratory: chest non-tender Cardiovascular: regular rate/rhythm, edema Abdomen: soft, ostomy bag in place Extremities: swelling, moderate bilateral lower extremity edema better than yesterday Results Last 24 Hrs of Lab Results: Laboratory Tests 10/30/17 0500: Anion Gap 11, Estimated GFR 23 L, Glucose 80, Calcium 8.8, Phosphorus 3.7, Magnesium 1.7, Total Bilirubin 5.4 H, AST 25, ALT 23, Albumin 2.8 L, CBC w Diff NO MAN DIFF REQ, RBC 2.98 L, MCV 81.7, MCH 26.1 L, MCHC 31.9 L, RDW 28.5 H, MPV 8.9, Gran % 88.5 H, Lymphocytes % 6.8 L, Monocytes % 4.3, Eosinophils % 0.3, Basophils % 0.1, Absolute Granulocytes 7.6 H, Absolute Lymphocytes 0.6 L, Absolute Monocytes 0.4, Absolute Eosinophils 0, Absolute Basophils 0 Diagnostic Data CXR Findings: SERVICE DATE: 10/29/17 EXAM TYPE: RAD - XRY-PORTABLE CHEST XRAY EXAMINATION: XR PORTABLE CHEST CLINICAL INFORMATION: Leukocytosis, increased O2 requirement, new right perihilar airspace consolidation. COMPARISON: Portable chest 10/28/2017, 10/11/2017, CT chest 10/25/2017 TECHNIQUE: Portable semiupright AP view of the chest was obtained. FINDINGS: Right perihilar airspace consolidation is decreased in confluence and slightly decreased in size. Again, there are other background pulmonary opacities consistent with the pulmonary nodules, better appreciated on CT. The vascularity is normal. There is no appreciable change in trace effusion. Cardiopericardial silhouette is stable. IMPRESSION: 1. Right perihilar airspace consolidation slightly decreased from prior study 10/28/2017. 2. Known pulmonary nodules. 3. Trace effusion stable. 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 Montoya), coronary artery disease status post stents, type 2 diabetes, hypothyroidism hyperlipidemia, hypertension who was brought to the hospital after she was found to have severe back pain and altered mental status and found to have had hypoglycemia upto 22 mg/dl at the time of presentation which could have resulted in altered mentation. She was transferred to ICU for management of hypoglycemia and altered mental status, and was transferred back to Gen. medicine service after stabilizing her clinically. Since she had heparin associated/heparin-induced thrombocytopenia and needed a Argatroban drip and so was transferred back to intensive care unit for further monitoring. Pertient lab findings in the last 24 hrs: W BC 9.9 (10/19)-->15.9 (10/22)-->14.3 (10/24)--> 9.0 (10/25)-->8.1(10/26)-->11.3(10/27)- ->7.6(10/28)--> 8.5 (10/29) Hemoglobin 8.9(10/19)-->8.8 (10/22)-->8.1(10/24)-->7.8(10/26)-->7.5(10/28)--> 7.3 (10/29) Platelets 71(10/19)-->159(10/22)-->175(10/24)-->118 *(10/25)-->115*(10/26)-->121(10/27)-- >98(10/28)----> 91(10/29) HCO3 16, chloride 120 (likely acidosis from fluids)-->122(10/24) BUN 28(10/19)-->32 (10/22)-->34(10/24)--> 36(10/29) Creatinine 1.2(10/19)-->1.7 (10/22)-->2.1(10/24 and 10/25)-->2.2 (10/29) Sodium 145 (10/25) HCO3 14(10/25)-->17(10/26)-->21(10/28) anion gap 9-->11(10/26) Cxr: 10/29/17 1. Right perihilar airspace consolidation slightly decreased from prior study 10/28/2017. 2. Known pulmonary nodules. 3. Trace effusion stable. Plan: 1. MRSA bronchitis, Aspiration Pneumonia: She was treated for MRSA bronchitis with vancomycin for 7 days. Currently off antibiotics. She was on regular diet, against the speech therapists recs, as per the pts family's request. They understand the risks vs benefits. Pt refusing NG tube. Discussed with the family about the risks vs benefits. Knowing the risks family still wishing to feed her when necessary on her wishes. 2. Klebsiella UTI: Completed a course of Ceftaz for 7 days 3. Borderline hypotension: Borderline blood pressure 90/50 at the time of admission. She received adequate hydration. Can continue her home medication at the time of discharge. Doesn't require any central line or vasopressor management. 4. Anemia likely ABLA: Guaiac positive stools, given history of rectal cancer and recent surgery. Hemoglobin and hematocrit remained stable without significant drop. Likely vaginal bleed, and also has vaginal ulcers likely secondary to radiation. - Blood transfusion x 1 PRBC, but pt has been refusing blood work for type and cross match too. -It was discussed in yesterday's family meeting and no more blood transfusions for now. 5. 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 His workup was negative however. She was restarted on enoxaparin and her platelets again declined. Hematology is recommending to avoid heparin at this time. Given renal insufficiency, new anticoagulants cannot be used in the treatment of DVT in her case. She should be started on warfarin at some point. If any procedures are planned, would start warfarin after the procedure. Given her use of argatroban, which also affects INR, her goal should be INR > 4, which will put her at a higher risk of bleeding. Need to discuss w/ the family. An acute drop in H&H could be attributed to vancomycin too, which is possible. Given her bleeding, Argatroban on hold. -No heparin or heparin products in future and no anticoagulation according to family wishes -Closer monitoring for any bleeding. -Monitor platelet count daily 6. Hypoglycemia: Resolved, we will monitor with Accu-Cheks. Currently on D5W+ HCo3 7. 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 She is status post diverting colostomy on 09/26/17 and was subsequently discharged to an extended care facility. She continues with pain presumably from the rectal mass. She has expressed her desire to move forward with palliative radiation therapy. She has received two treatments only 10/10/17. and 10/11/2017. No further radiation and systemic chemo, as per Hem Onc. 8. Dysphagia: Patient reported difficulty swallowing, concern for aspiration. 9 . GARIMA: Creatinine slightly better today from 2.2 TO 2.1 today. She was started on gentle IV hydration with D5 half normal saline at rate cc per hour. 10. Radiation induced vaginitis- was evaluated by ObGyn. No further recs. Requested an eval from the surgery. Await recs. Other medical problems: Hypothyroidism- Continue LT4 Hyperlipidemia -stopped Lipitor History of diabetes mellitus- Accu-Cheks. Held home meds given hypoglycemia Hypertension - held home medication quinalapril given hypotension at time of admission Coronary artery disease status post stents NPO for now but patient can be fed on her request and family wishes Disposition: Goals of care discussion ongoing. Currently she is DNI but she wants to be resuscitated. Code Status: Do Not Intubate Fredrick Fajardo MD 10/30/17 1031: Impression/Plan Impression/Plan Recommendations: Fredrick East M.D. have examined this patient, reviewed available EMR data, personally reviewed images, discussed with resident/PA/CORPORATE COMMUNICATIONS ASSOCIATE, discussed management plan with housestaff and nursing staff, discussed managment plan all of healthcare providers, discussed management plan with patient and/or family, agreed with resident/PA/CORPORATE COMMUNICATIONS ASSOCIATE. The past history and parts of the chart have been autopopulated. Impression 76 year old woman * metastatic disease to the liver from rectal ca * MRSA pna and Klebsiella UTI - completed abx * RUE DVT * Thrombocytopenia * GARIMA Plan -off anticoagulants due to anemia, f/u heme/onc recommendations -f/u goals of care, ongoing conversations with family with assistance from palliative care -continue hydration D5 1/2 NS - monitor for fluid overload -noted agreement regarding feeding despite risk of aspiration -creatinine will be trended -synthroid for hypothyroidism -aspiration precautions DVT prophylaxis at all times GM hold Family discussion yesterday held by house staff and nursing staff. The family based on patient's wishes have decided to not pursue intubation if ever came to that - she is now DNI. It was explained that resuscitation in the setting of a DNI status is likley futile, regardless this has opened the conversation toward goals of conservative management. The family have also declined blood draws (other than through IV), no transfusion, anticoagulation, lines/pressors, etc. Goals of care discussions will continue to be addressed
[2017-10-30 15:33] VITALS: BP 146/70
[2017-10-30 22:47] VITALS: BP 128/60
[2017-10-31 05:04] LABS: ABSOLUTE BASOPHIL COUNT 0 /CUMM (0.0-0.2); ABSOLUTE EOSINOPHIL COUNT 0.1 /CUMM (0.0-0.7); ABSOLUTE GRANULOCYTE CT 7.2 /CUMM (1.4-6.5); ABSOLUTE LYMPH COUNT 0.6 /CUMM (1.2-3.4); ABSOLUTE MONOCYTE COUNT 0.4 /CUMM (0.10-0.60); BASOPHIL % 0.1 % (0.0-2.0); EOSINOPHIL % 0.7 % (0-5); GRANULOCYTE % 87.7 % (42.2-75.2); HEMATOCRIT 22.9 % (37-47); MEAN CORPUSCULAR HGB 26.2 PG (27.0-31.0); MEAN CORPUSCULAR HGB CONC 32.2 G/DL (33.0-37.0); MEAN CORPUSCULAR VOLUME 81.4 FL (81.0-99.0); MEAN PLATELET VOLUME 10.6 FL (7.4-10.4); PLATELET COUNT 78 /CUMM (130-400); RBC DISTRIBUTION WIDTH 28.1 % (11.5-14.5); RED BLOOD CELL CT 2.82 /CUMM (4.20-5.40); WHITE BLOOD CELL COUNT 8.2 /CUMM (4.8-10.8)
--- NOTE | 2017-10-31 07:29 | PN- Resident CRCU ---
See Addendum Subjective HPI/CRCU Issues: Patient was seen and examined this morning She continues to be somnolent Reports abdominal discomfort Offers no complaints Vitals afebrile, heart rate 90, respiratory rate 16, blood pressure 112/60, saturating at 97 3L Family opted for do not intubation no more transfusion, anticoagulation, lines, pressors, etc. Objective Vital Signs & I&O Last 8 Hrs of Vitals and I&O: Vital Signs Date Time Temp Pulse Resp B/P B/P Pulse O2 O2 Flow FiO2 Mean Ox Delivery Rate 11/01 799 97.5 100 16 112/54 97 Nasal 3.0L Cannula 11/01 799 97 Nasal 3.0L Cannula Exam General Appearance: no apparent distress, alert Other Physical Findings: General Exam: AOx3, palor, No acute distress, Skin: No rashes;HEENT: PERRLA, EOMI;Neck: Supple, No JVDl; No cervical lymphadenopathy;CVS: Reg Rate, Normal S1 ,S2, No MGR; Resp: Normal air entry, bilateral ronchi and rales; Abdomen: Soft, No tenderness, Normal Bowel Sounds, colostomy bag in place, and also has an ulcer with bag in place for collection, edema extending upto the abdomen;Neuro: Normal Speech, Strength 4/5 b/l x 4 extremities, Sensation intact, CN III-XII NL , Reflexes 2+;Extremities: No cyanosis, pitting pedal edema 2 + Current Medications: Current Medications Sig/Rose Start time Last Medication Dose Route Stop Time Status Admin Albumin Human 25 GM Q8 10/24 1145 AC 10/31 IV 0607 Benzonatate 100 MG TID 10/09 2100 AC 10/28 PO 0804 Dextrose/Sodium 1,000 ML Q13H 10/30 0930 DC 10/30 Chloride IV 10/30 2229 0931 Levothyroxine Sodium 12.5 MCG DAILY 10/29 09 AC 10/31 IV 0935 Lorazepam 0.5 MG ONCE ONE 10/30 2199 DC 10/30 IV 10/30 2201 220 Magnesium Sulfate 1 GM ONCE ONE 10/30 0815 DC 10/30 Dextrose/Water 100 ML IV 10/30 1314 0948 Morphine Sulfate 2 MG Q4P PRN 10/12 1115 AC 10/30 IV 211 Ondansetron HCl 4 MG Q8P PRN 10/06 1845 AC 10/23 IV 1139 Pantoprazole Sodium 40 MG DAILY 10/13 0900 AC 10/31 IV 0932 Polyethylene Glycol 17 GM DAILY PRN 10/08 1145 AC 10/10 PO 0856 Senna/Docusate Sodium 2 TAB DAILY PRN 10/11 0900 AC 10/15 PO 0951 Tamsulosin HCl 0.4 MG DAILY 10/26 0915 AC 10/30 PO 0930 Vitamin A/Vitamin D 1 BROWN BID 10/20 2100 AC 10/30 TOP 0933 Impression/Plan Impression/Problem List Impression: 1. MRSA bronchitis, Aspiration Pneumonia: She was treated for MRSA bronchitis with vancomycin for 7 days. Currently off antibiotics. She was on regular diet, against the speech therapists recs, as per the pts family's request. They understand the risks vs benefits. Pt refusing NG tube. Knowing the risks family still wishing to feed her when necessary on her wishes.Chest x ray s/o of consolidation w/ no white count, or fever. Watch off abx. If she has fever, or has s/o infection would culture again and consider starting abx. Avoid vancomycin. 2. Klebsiella UTI: Completed a course of Ceftaz for 7 days 3. Borderline hypotension: Borderline blood pressure 90/50 at the time of admission. She received adequate hydration. Can continue her home medication at the time of discharge. Doesn't require any central line or vasopressor management. 4. Anemia likely ABLA: Guaiac positive stools, given history of rectal cancer and recent surgery. Hemoglobin and hematocrit remained stable above 7 without significant drop. Likely vaginal bleed, and also has vaginal ulcers likely secondary to radiation. - Blood transfusion x 1 PRBC, but pt has been refusing blood work for type and cross match too. - Family opted for no more blood transfusions. 5. 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 His workup was negative however. She was restarted on enoxaparin and her platelets again declined. Hematology is recommending to avoid heparin at this time. Given renal insufficiency, new anticoagulants cannot be used in the treatment of DVT in her case. She should be started on warfarin at some point. If any procedures are planned, would start warfarin after the procedure. Given her use of argatroban, which also affects INR, her goal should be INR > 4, which will put her at a higher risk of bleeding. An acute drop in H&H could be attributed to vancomycin too, which is possible. Given her bleeding, Argatroban on hold. -No heparin or heparin products and future -Closer monitoring for any bleeding. -Monitor platelet count daily -Family opted for no more anticoagulation 6. Hypoglycemia: Resolved, we will monitor with Accu-Cheks. off from D10 drip 7. 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 She is status post diverting colostomy on 09/26/17 and was subsequently discharged to an extended care facility. She continues with pain presumably from the rectal mass. She has expressed her desire to move forward with palliative radiation therapy. She has received two treatments only 10/10/17. and 10/11/2017. No further radiation and systemic chemo, as per Hem Onc, given her worsening status. 8. Dysphagia: Patient reported difficulty swallowing, concern for aspiration. Failure barium swallow too Knowing the risks family still wishing to feed her when necessary on her wishes. 9 . GARIMA: This has been worsening kidney function, likely prerenal in her case due to increasing third spacing and decreased intravascular volume. Other potential causes are vancomycin use acute tubular necrosis. Random vancomycin level was 18.7 which is clearly elevated even after discontinuation of vancomycin more than 7 days only would indicate a possible etiology. Continue albumin for increasing intravascular volume. She also has Non anion gap metabolic acidosis which was tx'ed w/ D5W+HCO3. 10. ureteric stone Newly found incidental reading of 7mm ureteric stone, contributing to both hematuria, drop in H&H, and GARIMA. Flomax has been added to her regimen. 10. Radiation induced vaginitis- she was evaluated by ObGyn. No further recs. Requested an eval from the surgery. Await recs. Other medical problems: Hypothyroidism- Continue LT4 Hyperlipidemia -stopped Lipitor History of diabetes mellitus- Accu-Cheks. Held home meds given hypoglycemia Hypertension - held home medication quinalapril given hypotension at time of admission Coronary artery disease status post stents Goals of care/code status- DNI Ms Russo wished to be DNI only, with having CPR done to revive her. We explained to them clearly about DNR and DNI, but they wished to be DNI for now, and have the CPR done. We explained to them that it would be very ineffective resuscitative if there is not enough oxygenation, but the family wished to keep this status at this time; they will re-visit the code status if clnical status changes. Also discussed about the medications that are given for comfort measures, and they would like the team to use morphine and ativan as needed for now. They don' t wish to be given any more blood products or anticoagulants, and no pressors. They understand the risks. They also wished to have Ms Nguyễn being given diet, as per the familys discretion. Informed them of the risks of aspiration, and they understand. Problem List: 1. GARIMA (acute kidney injury) 2. Pneumonia 3. UTI (urinary tract infection) 4. DVT (deep venous thrombosis) Pain Ratin Tomorrow's Labs & Rationales: cbc icu bundle Plan DVT/Prophylaxis: mechanical Code Status: Do Not Intubate
--- NOTE | 2017-10-31 07:45 | PN- Oncology ---
Subjective Subjective: She continues to be somnolent. She has no new pain. Patient and family have decided to transition to DNI and no more transfusion, anticoagulation, lines, pressors, etc. Review of Systems: Unable to obtain due to somnolence. Objective Vital Signs and I&Os Vital Signs Date Time Temp Pulse Resp B/P B/P Pulse O2 O2 Flow FiO2 Mean Ox Delivery Rate 10/31 0000 97 Nasal 3.0L Cannula 10/30 2247 98.0 95 16 128/60 97 Nasal 3.0L Cannula 10/30 1600 93 Nasal 3.0L Cannula 10/30 1533 97.3 107 22 146/70 93 Nasal 3.0L Cannula 10/30 0815 97.2 110 24 128/64 92 Nasal 3.0L Cannula 10/30 0800 92 Nasal 3.0L Cannula Intake & Output 10/31 0800 10/31 0000 10/30 1600 10/30 0800 10/30 0000 10/29 1600 Intake Total 325 600 320 100 200 100 Output Total 75 275 450 730 905 510 Balance 250 325 -130 -630 -705 -410 Intake, Blood 100 100 Product Intake, IV 325 600 300 100 100 Intake, Oral 0 20 0 Number 1 Bowel Movements Output, 25 25 650 800 Drainage Output, Other 150 400 450 Output, Stool 0 25 0 25 Output, Urine 50 75 50 80 80 60 Physical Exam General Appearance: no apparent distress, comfortable, lethargic, obese Respiratory: normal breath sounds, chest non-tender, no respiratory distress, quiet respiration Cardiovascular: regular rate/rhythm, edema Abdomen: normal bowel sounds, soft, non-tender, LLQ colostomy in place along with abdominal bag with clear yellow fluid Extremities: pedal edema Neurologic/Psychiatric: somnolent Skin: ecchymosis Lymphatic: no anterior cervical guille Current Medications: Current Medications Sig/Rose Start time Last Medication Dose Route Stop Time Status Admin Albumin Human 25 GM Q8 10/24 1145 AC 10/31 IV 0607 Benzonatate 100 MG TID 10/09 2099 AC 10/28 PO 0804 Dextrose/Sodium 1,000 ML Q13H 10/30 929 DC 10/30 Chloride IV 10/30 2229 0931 Guaifenesin 10 ML Q6P PRN 10/09 2014 DC 10/10 PO 05 Levothyroxine Sodium 12.5 MCG DAILY 10/29 09 AC 10/30 IV 0930 Lorazepam 0.5 MG ONCE ONE 10/30 2199 DC 10/30 IV 10/30 220 220 Magnesium Sulfate 1 GM ONCE ONE 10/30 914 DC 10/30 Dextrose/Water 100 ML IV 10/30 1314 0948 Morphine Sulfate 2 MG Q4P PRN 10/12 1115 AC 10/30 IV 2110 Ondansetron HCl 4 MG Q8P PRN 10/06 1845 AC 10/23 IV 1139 Pantoprazole Sodium 40 MG DAILY 10/13 0900 AC 10/30 IV 0930 Polyethylene Glycol 17 GM DAILY PRN 10/08 1145 AC 10/10 PO 0856 Senna/Docusate Sodium 2 TAB DAILY PRN 10/11 09 AC 10/15 PO 0951 Tamsulosin HCl 0.4 MG DAILY 10/26 0915 AC 10/30 PO 0930 Vitamin A/Vitamin D 1 BROWN BID 10/20 2100 AC 10/30 TOP 0933 Results Last 24 Hours of Lab Results: Laboratory Tests 10/31 0345 Chemistry Sodium (137 - 145 mmol/L) 140 Potassium (3.5 - 5.1 mmol/L) 3.8 Chloride (98 - 107 mmol/L) 106 Carbon Dioxide (22 - 30 mmol/L) 22 Anion Gap (5 - 16) 13 BUN (7 - 17 mg/dL) 45 H Creatinine (0.5 - 1.0 mg/dL) 2.3 H Estimated GFR (>60 ml/min) 21 L Glucose (65 - 99 mg/dL) 85 Calcium (8.4 - 10.2 mg/dL) 8.5 Phosphorus (2.5 - 4.5 mg/dL) 3.7 Magnesium (1.6 - 2.3 mg/dL) 1.8 Total Bilirubin (0.2 - 1.3 mg/dL) 6.6 H AST (14 - 36 U/L) 32 ALT (9 - 52 U/L) 27 Albumin (3.5 - 5.0 g/dL) 2.7 L Hematology CBC w Diff MAN DIFF ORDERED WBC (4.8 - 10.8 /CUMM) 8.2 RBC (4.20 - 5.40 /CUMM) 2.82 L Hgb (12.0 - 16.0 G/DL) 7.4 *L Hct (37 - 47 %) 22.9 L MCV (81.0 - 99.0 FL) 81.4 MCH (27.0 - 31.0 PG) 26.2 L MCHC (33.0 - 37.0 G/DL) 32.2 L RDW (11.5 - 14.5 %) 28.1 H Plt Count (130 - 400 /CUMM) 78 L MPV (7.4 - 10.4 FL) 10.6 H Gran % (42.2 - 75.2 %) 87.7 H Lymphocytes % (20.5 - 51.1 %) 6.9 L Monocytes % (1.7 - 9.3 %) 4.6 Eosinophils % (0 - 5 %) 0.7 Basophils % (0.0 - 2.0 %) 0.1 Absolute Granulocytes (1.4 - 6.5 /CUMM) 7.2 H Segmented Neutrophils (42.2 - 75.2 %) 83 H Band Neutrophils (0.0 - 5.0 %) 6 H Absolute Lymphocytes (1.2 - 3.4 /CUMM) 0.6 L Lymphocytes (20.5 - 51.1 %) 5 L Monocytes (1.7 - 9.3 %) 3 Absolute Monocytes (0.10 - 0.60 /CUMM) 0.4 Eosinophils (0 - 5.0 %) 3 Absolute Eosinophils (0.0 - 0.7 /CUMM) 0.1 Absolute Basophils (0.0 - 0.2 /CUMM) 0 Platelet Estimate (ADEQUATE) DECREASED Hypochromic-Microcytic 1+ Poikilocytosis 1+ Anisocytosis 1+ Target Cells 1+ Stomatocytes 1+ Ray Cells FEW Assessment/Plan Assessment/Recommendations: Ms. 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 She was seen in radiation oncology office and was noted to be in severe pain. She was sent to [facility] for evaluation. On admission, she was noted to be somnolent and hypoglycemic. Hypoglycemic has improved. She remains critically ill with poor prognosis. Anemia is stable. Thrombocytopenia is worse along with worsening bilirubin. Patient and family have decided change code status to DNI but not DNR. They request to have no peripheral blood draw, no lines, no blood transfusion, and no anticoagulation. Goals of care discussion continue to be discussed. She is a candidate for hospice. As they have decided to not pursue more aggressive intervention, limiting blood draw would be appropriate. Thrombocytopenia: -avoid all heparin product Anemia: -supportive measure -limit blood draw from IV RUE DVT: -off anticoagulation due to bleeding and family/patient wishes GARIMA: -management as per primary/nephrology Metastatic rectal cancer: -f/u outpatient -recommended hospice/comfort measure Please call [phone] with any questions or concerns. I will follow peripherally. Problem List: 1. Multiple lesions of metastatic malignancy 2. Rectal mass 3. DVT (deep venous thrombosis) 4. Thrombocytopenia 5. GARIMA (acute kidney injury) 6. Anemia
[2017-10-31 08:00] VITALS: BP 112/54
--- NOTE | 2017-10-31 10:05 | PN- Nephrology ---
Assessment/Plan Nephrology Assessment: GARIMA. Cr stable at 2.3. Pt clinically continues to decline. Supportive care as you are doing. Pt now DNI. Agree with plans to discuss hospice. Prognosis grim. I will follow prn. Call with questions Jorje Martinez MD Suggestion: . Subjective Subjective: Cr stable. minimally responsive today. Cr stable at 2.3. U.O. 150-200 cc/day. High output via drainage bag. Objective Vital Signs and I&Os Ill appearing F in ICU 128/60 98 95 Lungs clear Cor RRR Abd soft Ext 2+edema Results Pertinent Lab Results: Laboratory Tests 10/31 10/30 0345 0500 Chemistry Sodium (137 - 145 mmol/L) 140 140 Potassium (3.5 - 5.1 mmol/L) 3.8 3.9 Chloride (98 - 107 mmol/L) 106 106 Carbon Dioxide (22 - 30 mmol/L) 22 22 Anion Gap (5 - 16) 13 11 BUN (7 - 17 mg/dL) 45 H 41 H Creatinine (0.5 - 1.0 mg/dL) 2.3 H 2.1 H Estimated GFR (>60 ml/min) 21 L 23 L Glucose (65 - 99 mg/dL) 85 80 Calcium (8.4 - 10.2 mg/dL) 8.5 8.8 Phosphorus (2.5 - 4.5 mg/dL) 3.7 3.7 Magnesium (1.6 - 2.3 mg/dL) 1.8 1.7 Total Bilirubin (0.2 - 1.3 mg/dL) 6.6 H 5.4 H AST (14 - 36 U/L) 32 25 ALT (9 - 52 U/L) 27 23 Albumin (3.5 - 5.0 g/dL) 2.7 L 2.8 L Hematology CBC w Diff MAN DIFF ORDERED NO MAN DIFF REQ WBC (4.8 - 10.8 /CUMM) 8.2 8.6 RBC (4.20 - 5.40 /CUMM) 2.82 L 2.98 L Hgb (12.0 - 16.0 G/DL) 7.4 *L 7.8 L Hct (37 - 47 %) 22.9 L 24.4 L MCV (81.0 - 99.0 FL) 81.4 81.7 MCH (27.0 - 31.0 PG) 26.2 L 26.1 L MCHC (33.0 - 37.0 G/DL) 32.2 L 31.9 L RDW (11.5 - 14.5 %) 28.1 H 28.5 H Plt Count (130 - 400 /CUMM) 78 L 88 L MPV (7.4 - 10.4 FL) 10.6 H 8.9 Gran % (42.2 - 75.2 %) 87.7 H 88.5 H Lymphocytes % (20.5 - 51.1 %) 6.9 L 6.8 L Monocytes % (1.7 - 9.3 %) 4.6 4.3 Eosinophils % (0 - 5 %) 0.7 0.3 Basophils % (0.0 - 2.0 %) 0.1 0.1 Absolute Granulocytes (1.4 - 6.5 /CUMM) 7.2 H 7.6 H Segmented Neutrophils (42.2 - 75.2 %) 83 H Band Neutrophils (0.0 - 5.0 %) 6 H Absolute Lymphocytes (1.2 - 3.4 /CUMM) 0.6 L 0.6 L Lymphocytes (20.5 - 51.1 %) 5 L Monocytes (1.7 - 9.3 %) 3 Absolute Monocytes (0.10 - 0.60 /CUMM) 0.4 0.4 Eosinophils (0 - 5.0 %) 3 Absolute Eosinophils (0.0 - 0.7 /CUMM) 0.1 0 Absolute Basophils (0.0 - 0.2 /CUMM) 0 0 Platelet Estimate (ADEQUATE) DECREASED Hypochromic-Microcytic 1+ Poikilocytosis 1+ Anisocytosis 1+ Target Cells 1+ Stomatocytes 1+ Berger Cells FEW 05/05 0430 Chemistry Sodium (137 - 145 mmol/L) 139 Potassium (3.5 - 5.1 mmol/L) 3.7 Chloride (98 - 107 mmol/L) 105 Carbon Dioxide (22 - 30 mmol/L) 22 Anion Gap (5 - 16) 12 BUN (7 - 17 mg/dL) 36 H Creatinine (0.5 - 1.0 mg/dL) 2.2 H Estimated GFR (>60 ml/min) 22 L Glucose (65 - 99 mg/dL) 155 H Calcium (8.4 - 10.2 mg/dL) 8.5 Phosphorus (2.5 - 4.5 mg/dL) 3.8 Magnesium (1.6 - 2.3 mg/dL) 1.5 L Total Bilirubin (0.2 - 1.3 mg/dL) 3.7 H AST (14 - 36 U/L) 21 ALT (9 - 52 U/L) 25 Albumin (3.5 - 5.0 g/dL) 2.9 L Hematology CBC w Diff MAN DIFF ORDERED WBC (4.8 - 10.8 /CUMM) 8.5 RBC (4.20 - 5.40 /CUMM) 2.86 L Hgb (12.0 - 16.0 G/DL) 7.3 *L Hct (37 - 47 %) 23.2 L MCV (81.0 - 99.0 FL) 81.1 MCH (27.0 - 31.0 PG) 25.4 L MCHC (33.0 - 37.0 G/DL) 31.4 L RDW (11.5 - 14.5 %) 26.5 H Plt Count (130 - 400 /CUMM) 91 L MPV (7.4 - 10.4 FL) 9.3 Gran % (42.2 - 75.2 %) 87.8 H Lymphocytes % (20.5 - 51.1 %) 6.4 L Monocytes % (1.7 - 9.3 %) 5.2 Eosinophils % (0 - 5 %) 0.5 Basophils % (0.0 - 2.0 %) 0.1 Absolute Granulocytes (1.4 - 6.5 /CUMM) 7.4 H Absolute Lymphocytes (1.2 - 3.4 /CUMM) 0.5 L Absolute Monocytes (0.10 - 0.60 /CUMM) 0.4 Absolute Eosinophils (0.0 - 0.7 /CUMM) 0 Absolute Basophils (0.0 - 0.2 /CUMM) 0 Platelet Estimate (ADEQUATE) DECREASED Hypochromic-Microcytic 2+ Poikilocytosis 1+ Anisocytosis 1+
[2017-10-31 16:00] VITALS: BP 142/67
[2017-10-31 23:00] VITALS: BP 150/60
[2017-11-01 05:28] LABS: PT 33.5 SEC (9.4-12.5)
[2017-11-01 05:29] LABS: ABSOLUTE BASOPHIL COUNT 0 /CUMM (0.0-0.2); ABSOLUTE EOSINOPHIL COUNT 0.1 /CUMM (0.0-0.7); ABSOLUTE GRANULOCYTE CT 6.7 /CUMM (1.4-6.5); ABSOLUTE MONOCYTE COUNT 0.5 /CUMM (0.10-0.60); BASOPHIL % 0.3 % (0.0-2.0); EOSINOPHIL % 0.8 % (0-5); GRANULOCYTE % 80.7 % (42.2-75.2); MEAN CORPUSCULAR HGB 26.6 PG (27.0-31.0); MEAN CORPUSCULAR HGB CONC 32.4 G/DL (33.0-37.0); MEAN CORPUSCULAR VOLUME 82.2 FL (81.0-99.0); MEAN PLATELET VOLUME 9.6 FL (7.4-10.4); PLATELET COUNT 70 /CUMM (130-400); RBC DISTRIBUTION WIDTH 28.4 % (11.5-14.5); RED BLOOD CELL CT 2.68 /CUMM (4.20-5.40); WHITE BLOOD CELL COUNT 8.3 /CUMM (4.8-10.8)
--- NOTE | 2017-11-01 07:24 | PN- Resident CRCU ---
See Addendum Subjective HPI/CRCU Issues: Patient was seen and examined this morning She continues to be somnolent Reports abdominal discomfort Offers no other complaints Vitals afebrile, heart rate 70, respiratory rate 16, blood pressure 112/60, saturating at 97 3L Family opted for do not intubation no more transfusion, anticoagulation, lines, pressors, etc. Objective Vital Signs & I&O Last 8 Hrs of Vitals and I&O: Vital Signs Date Time Temp Pulse Resp B/P B/P Pulse O2 O2 Flow FiO2 Mean Ox Delivery Rate 11/01 0830 103 150/68 11/01 0800 95 Nasal 3.0L Cannula 11/01 0755 97.6 103 22 150/68 96 Nasal 3.0L Cannula 11/01 0000 97 Nasal 3.0L Cannula 10/31 2300 98.5 97 18 150/60 97 Nasal 3.0L Cannula 10/31 1600 99 Nasal 3.0L Cannula 10/31 1600 98.1 100 16 142/67 99 Nasal 3.0L Cannula Intake & Output 11/01 1600 11/01 0800 11/01 0000 Intake Total 650 419 Output Total 125 75 Balance 525 344 Intake, Blood 100 100 Product Intake, IV 550 319 Output, Stool 0 Output, Urine 125 75 Exam General Appearance: well developed/nourished, alert, awake, mild distress Other Physical Findings: General Exam: AOx3, palor, jaundice.No acute distress, Skin: No rashes;HEENT: PERRLA, EOMI;Neck: Supple, No JVDl; No cervical lymphadenopathy;CVS: Reg Rate, Normal S1,S2, No MGR; Resp: Normal air entry, bilateral ronchi and rales; Abdomen: Soft, No tenderness, Normal Bowel Sounds, colostomy bag in place, and also has an ulcer with bag in place for collection, edema extending upto the abdomen;Neuro: Normal Speech, Strength 4/5 b/l x 4 extremities, Sensation intact , CN III-XII NL, Reflexes 2+;Extremities: No cyanosis, pitting pedal edema 2 + Current Medications: Current Medications Sig/Rose Start time Last Medication Dose Route Stop Time Status Admin Albumin Human 25 GM Q8 10/24 1145 AC 11/01 IV 0509 Benzonatate 100 MG TID 10/09 2100 AC 10/28 PO 0804 Dextrose/Sodium 1,000 ML Q20H 10/31 1630 DC 10/31 Chloride IV 11/01 0229 1635 Fentanyl Citrate 100 MCG .STK-MED ONE 10/31 1529 DC IM 10/31 1530 Levothyroxine Sodium 12.5 MCG DAILY 10/29 0900 AC 11/01 IV 0829 Morphine Sulfate 2 MG Q4P PRN 10/12 1115 AC 11/01 IV 1150 Ondansetron HCl 4 MG Q8P PRN 10/06 1845 AC 10/23 IV 1139 Pantoprazole Sodium 40 MG DAILY 10/13 0900 AC 11/01 IV 0829 Polyethylene Glycol 17 GM DAILY PRN 10/08 1145 AC 10/10 PO 0856 Senna/Docusate Sodium 2 TAB DAILY PRN 10/11 0900 AC 10/15 PO 0951 Tamsulosin HCl 0.4 MG DAILY 10/26 0915 AC 10/30 PO 0930 Vitamin A/Vitamin D 1 BROWN BID 10/20 2100 AC 11/01 TOP 0829 Impression/Plan Impression/Problem List Impression: 1. MRSA bronchitis, Aspiration Pneumonia: She was treated for MRSA bronchitis with vancomycin for 7 days. Currently off antibiotics. She was on regular diet, against the speech therapists recs, as per the pts family's request. They understand the risks vs benefits. Pt refusing NG tube. Knowing the risks family still wishing to feed her when necessary on her wishes.Chest x ray s/o of consolidation w/ no white count, or fever. Watch off abx. If she has fever, or has s/o infection would culture again and consider starting abx. Avoid vancomycin. 2. Klebsiella UTI: Completed a course of Ceftaz for 7 days 3. Borderline hypotension: Borderline blood pressure 90/50 at the time of admission. She received adequate hydration. Can continue her home medication at the time of discharge. Doesn't require any central line or vasopressor management. 4. Anemia likely ABLA: Guaiac positive stools, given history of rectal cancer and recent surgery. Hemoglobin and hematocrit remained stable above 7. Likely vaginal bleed, and also has vaginal ulcers likely secondary to radiation. - Blood transfusion x 1 PRBC, but pt has been refusing blood work for type and cross match too. - Family opted for no more blood transfusions. 5. 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 His workup was negative however. She was restarted on enoxaparin and her platelets again declined. Hematology is recommending to avoid heparin at this time. Given renal insufficiency, new anticoagulants cannot be used in the treatment of DVT in her case. She should be started on warfarin at some point. If any procedures are planned, would start warfarin after the procedure. Given her use of argatroban, which also affects INR, her goal should be INR > 4, which will put her at a higher risk of bleeding. An acute drop in H&H could be attributed to vancomycin too, which is possible. Given her bleeding, Argatroban on hold. -No heparin or heparin products and future -Closer monitoring for any bleeding. -Monitor platelet count daily -Family opted for no more anticoagulation 6. Hypoglycemia: Resolved, we will monitor with Accu-Cheks. off from D10 drip 7. 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 She is status post diverting colostomy on 09/26/17 and was subsequently discharged to an extended care facility. She continues with pain presumably from the rectal mass. She has expressed her desire to move forward with palliative radiation therapy. She has received two treatments only 10/10/17. and 10/11/2017. No further radiation and systemic chemo, as per Hem Onc, given her worsening status. 8. Dysphagia: Patient reported difficulty swallowing, concerning for aspiration. Failed barium swallow. Knowing the risks family still wishing to feed her when necessary on her wishes. 9 . GARIMA: This has been worsening kidney function, likely prerenal in her case due to increasing third spacing and decreased intravascular volume. Other potential causes are vancomycin use acute tubular necrosis. Random vancomycin level was 18.7 which is clearly elevated even after discontinuation of vancomycin more than 7 days only would indicate a possible etiology. Continue albumin for increasing intravascular volume. She also has Non anion gap metabolic acidosis which was tx'ed w/ D5W+HCO3. 10. ureteric stone Newly found incidental reading of 7mm ureteric stone, contributing to both hematuria, drop in H&H, and GARIMA. Flomax has been added to her regimen. 10. Radiation induced vaginitis- she was evaluated by ObGyn. No further recs. Requested an eval from the surgery. Await recs. Other medical problems: Hypothyroidism- Continue LT4 Hyperlipidemia -stopped Lipitor History of diabetes mellitus- Accu-Cheks. Held home meds given hypoglycemia Hypertension - held home medication quinalapril given hypotension at time of admission Coronary artery disease status post stents Goals of care/code status- DNI Ms Russo wished to be DNI only, with having CPR done to revive her. We explained to them clearly about DNR and DNI, but they wished to be DNI for now, and have the CPR done. We explained to them that it would be very ineffective resuscitative if there is not enough oxygenation, but the family wished to keep this status at this time; they will re-visit the code status if clnical status changes. Also discussed about the medications that are given for comfort measures, and they would like the team to use morphine and ativan as needed for now. They don' t wish to be given any more blood products or anticoagulants, and no pressors. They understand the risks. They also wished to have Ms Nguyễn being given diet, as per the familys discretion. Informed them of the risks of aspiration, and they understand. Problem List: 1. UTI (urinary tract infection) 2. Pneumonia 3. GARIMA (acute kidney injury) 4. DVT (deep venous thrombosis) Pain Ratin Tomorrow's Labs & Rationales: cbc icu bundle Plan DVT/Prophylaxis: mechanical Code Status: Do Not Intubate
[2017-11-01 07:55] VITALS: BP 150/68
[2017-11-01 16:00] VITALS: BP 148/78
--- NOTE | 2017-11-01 17:02 | Transfer of Care Summary ---
Hospital Course Course Hospital Course: . Assessment/Plan: Ms Russo is a 76-year-old woman with PMHx of 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 Montoya), coronary artery disease status post stents, type 2 diabetes, hypothyroidism hyperlipidemia, hypertension who was brought to the hospital after she was found to have severe back pain and altered mental status and found to have had hypoglycemia upto 22 mg/dl at the time of presentation which could have resulted in altered mentation. She was transferred to ICU FROM [facility] for management of hypoglycemia and altered mental status. On presentation, vital signs were T 98.3, HR 84, RR 22, BP 109/53, saturating 100% on room air. Laboratories worsening and for white blood cell count 17.5, hemoglobin 10.5, platelets 68, MCV 75.7, sodium 132, chloride 97, BUN 22, glucose 22, calcium 7.5, albumin 1.9, AST 501, ALT 92, alkaline phosphatase 2012. Chest x-ray showed stable pattern nodule start the right and left lung compatible with history of pulmonary metastatic disease with no superimposed acute process. Head CT showed scattered chronic small vessel ischemic changes within the periventricular white matter with no evidence of acute infarct or hemorrhage. HOSPITAL COURSE: MRSA bronchitis, and possible aspiration pneumonia- She was treated for MRSA bronchitis with vancomycin for 7 days. Currently off antibiotics. She was on regular diet, against the speech therapists recs, as per the pts family's request. They understand the risks vs benefits. Pt refusing NG tube. Knowing the risks family still wishing to feed her when necessary on her wishes.Chest x ray s/o of consolidation w/ no white count, or fever. Watch off abx. If she has fever, or has s/o infection would culture again and consider starting abx. Avoid vancomycin. Klebsiella UTI Completed a course of Ceftaz for 7 days Borderline hypotension Takes quinapril at home for hypertension, held the medication given her borderline blood pressure 90/50 at the time of admission. She received adequate hydration. After which blood pressure continued to improve. Her blood pressure remained stable at around 110-120 throughout her stay. Can continue her home medication at the time of discharge. Doesn't require any central line or vasopressor management. Anemia likely ABLA: Guaiac positive stools, given history of rectal cancer and recent surgery. Hemoglobin and hematocrit remained stable above 7. Likely from vaginal bleed, and also from vaginal ulcers likely secondary to radiation. Blood transfusion x 1 PRBC, but pt has been refusing blood work for type and cross match. Family/ patient opted for no more blood transfusions. Thrombocytopenia/most likely HIT Likely heparin-induced: Patient had an initial drop in platelets while on heparin. His workup was negative however. She was restarted on enoxaparin and her platelets again declined. Hematology is recommending to avoid heparin at this time. Given renal insufficiency, new anticoagulants cannot be used in the treatment of DVT in her case. She should be started on warfarin at some point. Given her use of argatroban, which also affects INR, her goal should be INR > 4, which will put her at a higher risk of bleeding. An acute drop in H&H could be attributed to vancomycin too, which is possible. Given her bleeding, Argatroban on hold now. Family opted for no more anticoagulation at this point. However will continue to monitor closely for any bleeding. No heparin or heparin products future. Hypoglycemia she was admitted to ICU for severe hypoglycemia with glucose leve in the 20s. When she was in rehab, she was on Janumet, Jardiance, glimepiride and Humalog. As per her daughter, her po intake has been poor. she was on 10% dextrose drip. Her random cortisol was 24.3. But her insulin level was 46.5. patient received Octrotide too. Since then, her glucose level has been more stable. The underlying caueses of severe hypoglycemia-- poor intake, sulfonyureas, extensive metastatic lesions and liver dysfunction. No further requirements for octreotide or glucagon. Blood glucose maintaining at stable levels. No hypoglycemic events since October 14. chronic hyponatremia she has moderate hyponatremia that is chronic and associated with no symptoms/ no intracranial pathology. currently on D5 normal saline maintaining her sodium level within normal range. stage IV rectal cancer with liver and lung metastasis status post colectomy and colostomy She was seen in consultation by radiation oncologist on 09/29/17 for her known stage IV rectal carcinoma with widespread metastatic disease. She is status post diverting colostomy on 09/26/17 and was subsequently discharged to an extended care facility. She continues to have pain presumably from the rectal mass. She has expressed her desire to move forward with palliative radiation therapy. She has received two treatments only 10/10/17. and 10/11/2017. No further radiation and systemic chemo, as per Hem Onc, given her worsening status. Dysphagia: Patient reported difficulty swallowing, concerning for aspiration.She has multiple swallow elevation done and always she failed swallow evaluation and was kept nothing by mouth for speech/swallow therapy personnel. Multiple times patient was offered tube feeding which she refused every time. Knowing the risks family still wishing to feed her when necessary on her wishes. GARIMA: she has worsening kidney function, likely prerenal in her case due to increasing third spacing and decreased intravascular volume. Other potential causes are vancomycin use acute tubular necrosis. Random vancomycin level was 18.7 which is clearly elevated even after discontinuation of vancomycin more than 7 days only would indicate a possible etiology. Continue albumin for increasing intravascular volume. She also has Non anion gap metabolic acidosis which was tx 'ed w/ D5W+HCO3. ureteric stone Newly found incidental reading of 7mm ureteric stone, contributing to both hematuria, drop in H&H, and GARIMA. Flomax has been added to her regimen. Radiation induced vaginitis- she was evaluated by ObGyn. No further recs. Other medical problems Hypothyroidism continued iv levothyroxine 12.5 g Hyperlipidemia -stopped Lipitor History of diabetes mellitus- Accu-Cheks. Held home meds given hypoglycemia Hypertension - held home medication quinalapril given hypotension at time of admission Coronary artery disease status post stents Goals of care/code status- DNI Ms Russo wished to be DNI only, with having CPR done to revive her. We explained to them clearly about DNR and DNI, but they wished to be DNI for now, and have the CPR done. We explained to them that it would be very ineffective resuscitative if there is not enough oxygenation, but the family wished to keep this status at this time; they will re-visit the code status if clnical status changes. Also discussed about the medications that are given for comfort measures, and they would like the team to use morphine and ativan as needed for now. They don' t wish to be given any more blood products or anticoagulants, and no pressors. They understand the risks. They also wished to have Ms Nguyễn being given diet, as per the familys discretion. Informed them of the risks of aspiration, and they understand. DVT prophylaxis: Alps. Housekeeping ICU #1 Central line- none #2 Arterial line- none #3 Blake catheter- yes #4 Rectal tube - none #5 NG tube - none #6 IV/peripheral line- yes. #7 IV drips- d5 NS #8 Vent settings: none #9 pressors: none #10. colostomy bag #11. abdominal wound
[2017-11-01 22:00] VITALS: BP 110/72
[2017-11-02] VITALS: BP 118/60
[2017-11-02 05:25] LABS: PT 33.5 SEC (9.4-12.5)
[2017-11-02 05:28] LABS: ABSOLUTE BASOPHIL COUNT 0 /CUMM (0.0-0.2); ABSOLUTE EOSINOPHIL COUNT 0.1 /CUMM (0.0-0.7); ABSOLUTE GRANULOCYTE CT 5.6 /CUMM (1.4-6.5); ABSOLUTE LYMPH COUNT 0.8 /CUMM (1.2-3.4); ABSOLUTE MONOCYTE COUNT 0.5 /CUMM (0.10-0.60); BASOPHIL % 0.2 % (0.0-2.0); EOSINOPHIL % 0.9 % (0-5); GRANULOCYTE % 81.5 % (42.2-75.2); HEMATOCRIT 21.1 % (37-47); MEAN CORPUSCULAR HGB 26.7 PG (27.0-31.0); MEAN CORPUSCULAR HGB CONC 32.1 G/DL (33.0-37.0); MEAN CORPUSCULAR VOLUME 83.1 FL (81.0-99.0); MEAN PLATELET VOLUME 10.7 FL (7.4-10.4); PLATELET COUNT 62 /CUMM (130-400); RBC DISTRIBUTION WIDTH 28.5 % (11.5-14.5); RED BLOOD CELL CT 2.54 /CUMM (4.20-5.40); WHITE BLOOD CELL COUNT 6.9 /CUMM (4.8-10.8)
--- NOTE | 2017-11-02 07:31 | PN- Resident CRCU ---
Sidney Perera 11/02/17 0730: Subjective HPI/CRCU Issues: MRSA bronchitis and possible aspiration pneumonia Klebsiella UTI Borderline hypertension Anemia Thrombocytopenia/most likely hit Hypoglycemia Chronic hyponatremia Stage IV rectal cancer with liver and lung metastasis status post colectomy and colostomy Dysphagia GARIMA Ureteric stone 24 Hour Events: No events Objective Vital Signs & I&O Last 8 Hrs of Vitals and I&O: stable Exam General Appearance: lethargic Current Medications: Current Medications Sig/Rose Start time Last Medication Dose Route Stop Time Status Admin Albumin Human 25 GM Q8 10/24 1145 AC 11/03 IV 0523 Benzonatate 100 MG TID 10/09 2100 AC 10/28 PO 0804 Dextrose/Sodium 1,000 ML Q20H 11/02 1715 DC 11/02 Chloride IV 11/03 0634 1713 Dextrose/Sodium 1,000 ML Q20H 11/02 0345 DC 11/02 Chloride IV 11/02 1704 0405 Levothyroxine Sodium 12.5 MCG DAILY 10/29 09 AC 11/03 IV 1110 Lorazepam 0.5 MG Q4P PRN 11/02 2345 11/03 IV 1105 Lorazepam 0.5 MG ONCE ONE 11/02 2130 DC 11/02 IV 11/02 2131 2151 Magnesium Sulfate 1 GM ONCE ONE 11/02 1300 DC 11/02 Dextrose/Water 100 ML IV 11/02 1659 1701 Morphine Sulfate 2 MG Q4P PRN 11/01 1915 11/03 IV 0903 Ondansetron HCl 4 MG Q8P PRN 10/06 1845 AC 10/23 IV 1139 Pantoprazole Sodium 40 MG DAILY 10/13 0900 AC 11/03 IV 0902 Polyethylene Glycol 17 GM DAILY PRN 10/08 1145 AC 10/10 PO 0856 Potassium Chloride 10 MEQ ONCE ONE 11/03 0745 DC 11/03 IV 11/03 0746 0903 Potassium Chloride 10 MEQ Q1H 11/02 1300 DC 11/02 IV 11/02 1401 1449 Senna/Docusate Sodium 2 TAB DAILY PRN 10/11 0900 AC 10/15 PO 0951 Tamsulosin HCl 0.4 MG DAILY 10/26 0915 AC 10/30 PO 0930 Vitamin A/Vitamin D 1 BROWN BID 10/20 2100 AC 11/03 TOP 0903 Impression/Plan Impression/Problem List Impression: 1. MRSA bronchitis, Aspiration Pneumonia: * She was treated for MRSA bronchitis with vancomycin for 7 days. Currently off antibiotics. * She was on regular diet, against the speech therapists recs, as per the pts family's request. They understand the risks vs benefits. Pt refusing NG tube. Knowing the risks family still wishing to feed her when necessary on her wishes.Chest x ray s/o of consolidation w/ no white count, or fever. Watch off abx. If she has fever, or has s/o infection would culture again and consider starting abx. Avoid vancomycin. 2. Klebsiella UTI: * Completed a course of Ceftaz for 7 days 3. Borderline hypotension: BP today: 118/60mmgh Borderline blood pressure 90/50 at the time of admission. She received adequate hydration. Can continue her home medication at the time of discharge. Doesn't require any central line or vasopressor management. 4. Anemia likely ABLA: Guaiac positive stools, given history of rectal cancer and recent surgery. Hemoglobin and hematocrit remained stable above 7. Likely vaginal bleed, and also has vaginal ulcers likely secondary to radiation. - Blood transfusion x 1 PRBC, but pt has been refusing blood work for type and cross match too. - Family opted for no more blood transfusions. 5. 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 His workup was negative however. She was restarted on enoxaparin and her platelets again declined. Hematology is recommending to avoid heparin at this time. Given renal insufficiency, new anticoagulants cannot be used in the treatment of DVT in her case. She should be started on warfarin at some point. If any procedures are planned, would start warfarin after the procedure. Given her use of argatroban, which also affects INR, her goal should be INR > 4, which will put her at a higher risk of bleeding. An acute drop in H&H could be attributed to vancomycin too, which is possible. Given her bleeding, Argatroban on hold. -No heparin or heparin products and future -Closer monitoring for any bleeding. -Monitor platelet count daily -Family opted for no more anticoagulation 6. Hypoglycemia: Resolved, we will monitor with Accu-Cheks. off from D10 drip 7. 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 She is status post diverting colostomy on 09/26/17 and was subsequently discharged to an extended care facility. She continues with pain presumably from the rectal mass. She has expressed her desire to move forward with palliative radiation therapy. She has received two treatments only 10/10/17. and 10/11/2017. No further radiation and systemic chemo, as per Hem Onc, given her worsening status. 8. Dysphagia: Patient reported difficulty swallowing, concerning for aspiration. Failed barium swallow. Knowing the risks family still wishing to feed her when necessary on her wishes. 9 . GARIMA: This has been worsening kidney function, likely prerenal in her case due to increasing third spacing and decreased intravascular volume. Other potential causes are vancomycin use acute tubular necrosis. Random vancomycin level was 18.7 which is clearly elevated even after discontinuation of vancomycin more than 7 days only would indicate a possible etiology. Continue albumin for increasing intravascular volume. She also has Non anion gap metabolic acidosis which was tx'ed w/ D5W+HCO3. 10. ureteric stone Newly found incidental reading of 7mm ureteric stone, contributing to both hematuria, drop in H&H, and GARIMA. Flomax has been added to her regimen. 10. Radiation induced vaginitis- she was evaluated by ObGyn. No further recs. Requested an eval from the surgery. Await recs. Other medical problems: Hypothyroidism- Continue LT4 Hyperlipidemia -stopped Lipitor History of diabetes mellitus- Accu-Cheks. Held home meds given hypoglycemia Hypertension - held home medication quinalapril given hypotension at time of admission Coronary artery disease status post stents Goals of care/code status- DNI Ms Rusos wished to be DNI only, with having CPR done to revive her. We explained to them clearly about DNR and DNI, but they wished to be DNI for now, and have the CPR done. We explained to them that it would be very ineffective resuscitative if there is not enough oxygenation, but the family wished to keep this status at this time; they will re-visit the code status if clnical status changes. Also discussed about the medications that are given for comfort measures, and they would like the team to use morphine and ativan as needed for now. They don' t wish to be given any more blood products or anticoagulants, and no pressors. They understand the risks. They also wished to have Ms Nguyễn being given diet, as per the familys discretion. Informed them of the risks of aspiration, and they understand. Problem List: 1. GARIMA (acute kidney injury) 2. Thrombocytopenia 3. Metastatic disease 4. Colostomy in place 5. Rectal carcinoma 6. Metastases to the liver 7. Microcytic anemia Pain Ratin Tomorrow's Labs & Rationales: ICU LAB BUNDLE Plan DVT/Prophylaxis: mechanical Code Status: Do Not Intubate Dennis Hunter MD 11/02/17 2159: Attending MD Review Statement Attending Sign Off Attending Cosign Statement: I have: examined this patient, reviewed [facility] EMR data, discussd w/resident/PA/ ENTRY LEVEL MANAGER, discussed mgmt plan w/nicolle, agreed w/resident/PA/ENTRY LEVEL MANAGER, amended to note. Other Findings: The patient was seen and discussed with the house staff, nursing and the patient 's daughter Symone (by phone). She is becoming progressively less responsive, however appears comfortable. Spoke with her daughter on phone and she is up to date on her status. She still wishes her to be DNI but not DNR (she wishes chest compressions as her mother had stated that to the family). She also requests that she have prn Ativan as well as morphine as she has some anxiety.
[2017-11-02 08:00] VITALS: BP 122/60
[2017-11-02 16:00] VITALS: BP 128/70
[2017-11-03] VITALS: BP 130/60
[2017-11-03 05:52] LABS: ABSOLUTE BASOPHIL COUNT 0 /CUMM (0.0-0.2); ABSOLUTE EOSINOPHIL COUNT 0.1 /CUMM (0.0-0.7); ABSOLUTE GRANULOCYTE CT 7.8 /CUMM (1.4-6.5); ABSOLUTE LYMPH COUNT 0.6 /CUMM (1.2-3.4); ABSOLUTE MONOCYTE COUNT 0.5 /CUMM (0.10-0.60); BASOPHIL % 0.3 % (0.0-2.0); EOSINOPHIL % 0.6 % (0-5); HEMATOCRIT 20.7 % (37-47); MEAN CORPUSCULAR HGB 24.9 PG (27.0-31.0); MEAN CORPUSCULAR HGB CONC 29.8 G/DL (33.0-37.0); MEAN CORPUSCULAR VOLUME 83.3 FL (81.0-99.0); PLATELET COUNT 62 /CUMM (130-400); RBC DISTRIBUTION WIDTH 27.4 % (11.5-14.5); RED BLOOD CELL CT 2.48 /CUMM (4.20-5.40)
[2017-11-03 08:00] VITALS: BP 140/70
--- NOTE | 2017-11-03 08:49 | PN- Resident CRCU ---
Jasensima,[facility] 11/03/17 0849: Subjective HPI/CRCU Issues: Same clinical situation No new events 24 Hour Events: Non Objective Vital Signs & I&O Last 8 Hrs of Vitals and I&O: Intake & Output 11/05 1600 Intake Total 100 Output Total 55 Balance 45 Intake, IV 100 Output, Stool 0 Output, Urine 55 Exam General Appearance: lethargic Nutrition Nutrition: NPO Current Medications: Current Medications Sig/Rose Start time Last Medication Dose Route Stop Time Status Admin Albumin Human 25 GM Q8 10/24 1145 AC 11/05 IV 1357 Benzonatate 100 MG TID 10/09 2100 AC 10/28 PO 0804 Dextrose/Sodium 1,000 ML Q20H 11/04 1700 DC Chloride IV 11/05 1259 Furosemide 20 MG ONCE ONE 11/05 1345 DC 11/05 IV 11/05 1346 1357 Glycopyrrolate 200 MCG ONE ONE 11/05 0830 DC 11/05 IV 11/05 0831 0924 Glycopyrrolate 200 MCG ONE ONE 11/04 2200 DC 11/04 IV 11/04 2201 2205 Levothyroxine Sodium 12.5 MCG DAILY 10/29 0900 AC 11/05 IV 1000 Lorazepam 0.5 MG Q4P PRN 11/02 2345 AC 11/05 IV 1357 Morphine Sulfate 2 MG ONCE ONE 11/05 1245 DC 11/05 IV 11/05 1246 1246 Morphine Sulfate 2 MG Q4P PRN 11/01 1915 AC 11/05 IV 0924 Ondansetron HCl 4 MG Q8P PRN 10/06 1845 AC 10/23 IV 1139 Pantoprazole Sodium 40 MG DAILY 10/13 09 AC 11/05 IV 0925 Polyethylene Glycol 17 GM DAILY PRN 10/08 1145 AC 10/10 PO 0856 Potassium Chloride 40 MEQ ONCE ONE 11/05 0930 CAN PO 11/05 0931 Scopolamine HBr 1 PAT Q72H 11/03 1914 11/03 TOP 2141 Senna/Docusate Sodium 2 TAB DAILY PRN 10/11 0900 AC 10/15 PO 0951 Tamsulosin HCl 0.4 MG DAILY 10/26 0915 AC 10/30 PO 0930 Vitamin A/Vitamin D 1 BROWN BID 10/20 2100 AC 11/05 TOP 0925 Impression/Plan Impression/Problem List Impression: 1. MRSA bronchitis, Aspiration Pneumonia: * She was treated for MRSA bronchitis with vancomycin for 7 days. Currently off antibiotics. * She was on regular diet, against the speech therapists recs, as per the pts family's request. They understand the risks vs benefits. Pt refusing NG tube. Knowing the risks family still wishing to feed her when necessary on her wishes.Chest x ray s/o of consolidation w/ no white count, or fever. Watch off abx. If she has fever, or has s/o infection would culture again and consider starting abx. Avoid vancomycin. 2. Klebsiella UTI: * Completed a course of Ceftaz for 7 days 3. Borderline hypotension: BP today: 118/60mmgh Borderline blood pressure 90/50 at the time of admission. She received adequate hydration. Can continue her home medication at the time of discharge. Doesn't require any central line or vasopressor management. 4. Anemia likely ABLA: Guaiac positive stools, given history of rectal cancer and recent surgery. Hemoglobin and hematocrit remained stable above 7. Likely vaginal bleed, and also has vaginal ulcers likely secondary to radiation. - Blood transfusion x 1 PRBC, but pt has been refusing blood work for type and cross match too. - Family opted for no more blood transfusions. 5. 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 His workup was negative however. She was restarted on enoxaparin and her platelets again declined. Hematology is recommending to avoid heparin at this time. Given renal insufficiency, new anticoagulants cannot be used in the treatment of DVT in her case. She should be started on warfarin at some point. If any procedures are planned, would start warfarin after the procedure. Given her use of argatroban, which also affects INR, her goal should be INR > 4, which will put her at a higher risk of bleeding. An acute drop in H&H could be attributed to vancomycin too, which is possible. Given her bleeding, Argatroban on hold. -No heparin or heparin products and future -Closer monitoring for any bleeding. -Monitor platelet count daily -Family opted for no more anticoagulation 6. Hypoglycemia: Resolved, we will monitor with Accu-Cheks. off from D10 drip 7. 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 She is status post diverting colostomy on 09/26/17 and was subsequently discharged to an extended care facility. She continues with pain presumably from the rectal mass. She has expressed her desire to move forward with palliative radiation therapy. She has received two treatments only 10/10/17. and 10/11/2017. No further radiation and systemic chemo, as per Hem Onc, given her worsening status. 8. Dysphagia: Patient reported difficulty swallowing, concerning for aspiration. Failed barium swallow. Knowing the risks family still wishing to feed her when necessary on her wishes. 9 . GARIMA: This has been worsening kidney function, likely prerenal in her case due to increasing third spacing and decreased intravascular volume. Other potential causes are vancomycin use acute tubular necrosis. Random vancomycin level was 18.7 which is clearly elevated even after discontinuation of vancomycin more than 7 days only would indicate a possible etiology. Continue albumin for increasing intravascular volume. She also has Non anion gap metabolic acidosis which was tx'ed w/ D5W+HCO3. 10. ureteric stone Newly found incidental reading of 7mm ureteric stone, contributing to both hematuria, drop in H&H, and GARIMA. Flomax has been added to her regimen. 10. Radiation induced vaginitis- she was evaluated by ObGyn. No further recs. Requested an eval from the surgery. Await recs. Other medical problems: Hypothyroidism- Continue LT4 Hyperlipidemia -stopped Lipitor History of diabetes mellitus- Accu-Cheks. Held home meds given hypoglycemia Hypertension - held home medication quinalapril given hypotension at time of admission Coronary artery disease status post stents Goals of care/code status- DNI Ms Russo wished to be DNI only, with having CPR done to revive her. We explained to them clearly about DNR and DNI, but they wished to be DNI for now, and have the CPR done. We explained to them that it would be very ineffective resuscitative if there is not enough oxygenation, but the family wished to keep this status at this time; they will re-visit the code status if clnical status changes. Also discussed about the medications that are given for comfort measures, and they would like the team to use morphine and ativan as needed for now. They don' t wish to be given any more blood products or anticoagulants, and no pressors. They understand the risks. They also wished to have Ms Nguyễn being given diet, as per the familys discretion. Informed them of the risks of aspiration, and they understand. Problem List: 1. GRAIMA (acute kidney injury) 2. Goals of care, counseling/discussion 3. Metastatic disease 4. Thrombocytopenia Pain Ratin Tomorrow's Labs & Rationales: cbc, bep Plan DVT/Prophylaxis: mechanical Code Status: Do Not Intubate Dennis Hunter MD 11/03/17 1419: Attending MD Review Statement Attending Sign Off Attending Cosign Statement: I have: examined this patient, reviewed aval EMR data, discussd w/resident/PA/ MASTER STEAM YACHT, discussed mgmt plan w/pt, agreed w/resident/PA/MASTER STEAM YACHT, amended to note. Other Findings: The patient was seen and discussed with house staff. Patient continues to decline slowly. H/H continues to drop (6.2/20.7). Family aware of slow decline. Appears comfortable on Ativan/Morphine. Family still requests CPR (no intubation ) as that was what their mother desired.
[2017-11-03 16:14] VITALS: BP 108/50
[2017-11-04] VITALS: BP 110/60
[2017-11-04 05:05] LABS: ABSOLUTE BASOPHIL COUNT 0 /CUMM (0.0-0.2); ABSOLUTE EOSINOPHIL COUNT 0 /CUMM (0.0-0.7); ABSOLUTE GRANULOCYTE CT 5.3 /CUMM (1.4-6.5); ABSOLUTE LYMPH COUNT 0.4 /CUMM (1.2-3.4); ABSOLUTE MONOCYTE COUNT 0.3 /CUMM (0.10-0.60); BASOPHIL % 0.1 % (0.0-2.0); EOSINOPHIL % 0.2 % (0-5); GRANULOCYTE % 87.5 % (42.2-75.2); MEAN CORPUSCULAR HGB 25.3 PG (27.0-31.0); MEAN CORPUSCULAR HGB CONC 30.3 G/DL (33.0-37.0); MEAN CORPUSCULAR VOLUME 83.6 FL (81.0-99.0); MEAN PLATELET VOLUME 10.8 FL (7.4-10.4); PLATELET COUNT 65 /CUMM (130-400); RBC DISTRIBUTION WIDTH 27.3 % (11.5-14.5); RED BLOOD CELL CT 2.18 /CUMM (4.20-5.40)
[2017-11-04 05:12] LABS: HEMATOCRIT 18.2 % (37-47)
[2017-11-04 08:00] VITALS: BP 110/58
--- NOTE | 2017-11-04 09:19 | PN- Resident CRCU ---
CrystalSidney roque 11/04/17 0919: Subjective HPI/CRCU Issues: Klebsiella UTI Borderline hypertension Anemia Thrombocytopenia/most likely hit Hypoglycemia Chronic hyponatremia Stage IV rectal cancer with liver and lung metastasis status post colectomy and colostomy Dysphagia GARIMA Ureteric stone MRSA bronchitis and possible aspiration pneumonia/ completed antibiotic course 24 Hour Events: No event, patient continue to be nonverbal. Vitals stable She was seen and examined, not opening her eye for the verbal stimuli, not answering question Objective Vital Signs & I&O Last 8 Hrs of Vitals and I&O: Stable Exam General Appearance: well developed/nourished, no apparent distress, alert, awake Head: atraumatic, normal appearance Neck: normal inspection, supple, full range of motion Respiratory: Opening her mouth with respiration, Cardiovascular: regular rate/rhythm, normal peripheral pulses Gastrointestinal: normal bowel sounds, soft Extremities: +3 edema Nutrition Nutrition: NPO Current Medications: Current Medications Sig/Rose Start time Last Medication Dose Route Stop Time Status Admin Albumin Human 25 GM Q8 10/24 1145 AC 11/04 IV 0542 Benzonatate 100 MG TID 10/09 2100 AC 10/28 PO 0804 Dextrose/Sodium 1,000 ML Q20H 11/03 1130 DC 11/03 Chloride IV 11/04 0729 0900 Glycopyrrolate 200 MCG ONE ONE 11/04 1000 DC 11/04 IV 11/04 1001 1006 Levothyroxine Sodium 12.5 MCG DAILY 10/29 09 AC 11/04 IV 0947 Lorazepam 0.5 MG Q4P PRN 11/02 2345 AC 11/03 IV 1600 Morphine Sulfate 2 MG Q4P PRN 11/01 191 AC 11/04 IV 1014 Ondansetron HCl 4 MG Q8P PRN 10/06 1845 AC 10/23 IV 1139 Pantoprazole Sodium 40 MG DAILY 10/13 09 AC 11/04 IV 0946 Polyethylene Glycol 17 GM DAILY PRN 10/08 1145 AC 10/10 PO 0856 Scopolamine HBr 1 PAT Q72H 11/03 191 AC 11/03 TOP 2141 Senna/Docusate Sodium 2 TAB DAILY PRN 10/11 0900 AC 10/15 PO 0951 Tamsulosin HCl 0.4 MG DAILY 10/26 0915 AC 10/30 PO 0930 Vitamin A/Vitamin D 1 BROWN BID 10/20 2100 AC 11/04 TOP 0947 Impression/Plan Impression/Problem List Impression: 1. MRSA bronchitis, Aspiration Pneumonia: * She was treated for MRSA bronchitis with vancomycin for 7 days. Currently off antibiotics. * She was on regular diet, against the speech therapists recs, as per the pts family's request. They understand the risks vs benefits. Pt refusing NG tube. Knowing the risks family still wishing to feed her when necessary on her wishes.Chest x ray s/o of consolidation w/ no white count, or fever. Watch off abx. If she has fever, or has s/o infection would culture again and consider starting abx. Avoid vancomycin. * Currently patient is obtunded, unable to receive po intake. 2. Klebsiella UTI: * Completed a course of Ceftaz for 7 days 3. Borderline hypotension: -Currently stable 4. Anemia likely ABLA: Guaiac positive stools, given history of rectal cancer and recent surgery. her H &H continue to drop, family doesn't want blood transfusion, today her H&H is 5.5 /18.2. -She has vaginal bleeding and also has vaginal ulcers likely secondary to radiation. She was evaluated by EXTERMINATOR HELPER TERMITE who recommended surgical intervention when the patient medically stable, no intervention for now given her current clinical situation -Pt. has been refusing blood work for type and cross match too. - Family opted for no more blood transfusions. 5. 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 His workup was negative however. She was restarted on enoxaparin and her platelets again declined. Hematology is recommending to avoid heparin at this time. Given renal insufficiency, new anticoagulants cannot be used in the treatment of DVT in her case. She should be started on warfarin at some point. If any procedures are planned, would start warfarin after the procedure. Given her use of argatroban, which also affects INR, her goal should be INR > 4, which will put her at a higher risk of bleeding. An acute drop in H&H could be attributed to vancomycin too, which is possible. Given her bleeding, Argatroban on hold. -No heparin or heparin products and future -Closer monitoring for any bleeding. -Monitor platelet count daily -Family opted for no more anticoagulation 6. Hypoglycemia: Resolved, we will monitor with Accu-Cheks. off from D10 ip Currently on D4half normal saline 7. 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 She is status post diverting colostomy on 09/26/17 and was subsequently discharged to an extended care facility. She continues with pain presumably from the rectal mass. She has expressed her desire to move forward with palliative radiation therapy. She has received two treatments only 10/10/17. and 10/11/2017. No further radiation and systemic chemo, as per Hem Onc, given her worsening status. 8. Dysphagia: Patient reported difficulty swallowing, concerning for aspiration. Failed barium swallow. Knowing the risks family still wishing to feed her when necessary on her wishes. Currebtly obtunded on iv fluid 9 . GARIMA: This has been worsening kidney function, likely prerenal in her case due to increasing third spacing and decreased intravascular volume. Other potential causes are vancomycin use acute tubular necrosis. Random vancomycin level was 18.7 which is clearly elevated even after discontinuation of vancomycin more than 7 days only would indicate a possible etiology. Continue albumin for increasing intravascular volume. She also has Non anion gap metabolic acidosis which was tx'ed w/ D5W+HCO3. 10. ureteric stone Newly found incidental reading of 7mm ureteric stone, contributing to both hematuria, drop in H&H, and GARIMA. Flomax has been added to her regimen. 10. Radiation induced vaginitis- she was evaluated by ObGyn. No further recs. Requested an eval from the surgery. Await recs. Other medical problems: Hypothyroidism- Continue LT4 Hyperlipidemia -stopped Lipitor History of diabetes mellitus- Accu-Cheks. Held home meds given hypoglycemia Hypertension - held home medication quinalapril given hypotension at time of admission Coronary artery disease status post stents Goals of care/code status- DNI Ms Russo wished to be DNI only, with having CPR done to revive her. We explained to them clearly about DNR and DNI, but they wished to be DNI for now, and have the CPR done. We explained to them that it would be very ineffective resuscitative if there is not enough oxygenation, but the family wished to keep this status at this time; they will re-visit the code status if clnical status changes. Also discussed about the medications that are given for comfort measures, and they would like the team to use morphine and ativan as needed for now. They don' t wish to be given any more blood products or anticoagulants, and no pressors. They understand the risks. They also wished to have Ms Nguyễn being given diet, as per the familys discretion. Informed them of the risks of aspiration, and they understand. Today 11/04/2017: We planned a family meeting today with patient family, Miss. Garcia the hospice nurse is going to talk to the family and evaluate the patient. She is currently on Ativan, Morphine as needed and scopolamine. Problem List: 1. Metastatic disease 2. Microcytic anemia Pain Ratin Tomorrow's Labs & Rationales: cbc, bep Plan DVT/Prophylaxis: mechanical Code Status: Do Not Intubate Dennis Hunter MD 11/04/17 2224: Attending MD Review Statement Attending Sign Off Attending Cosign Statement: I have: examined this patient, reviewed [facility] EMR data, discussd w/resident/PA/ VENEER JOINER, discussed mgmt plan w/nicolle, discussed mgmt plan w/CM, agreed w/resident/PA/VENEER JOINER , amended to note. Other Findings: The patient was seen and discussed with house staff, nursing, case management, and daughter (by phone). The patient continues to decline with further decrease in H/H. Discussed with daughter Symone options including making "DNR" as well as DNI (she later elected DNR). Family met with Christie from [facility] and elected not to do Hospice at present.
--- NOTE | 2017-11-04 12:08 | PN- Nephrology ---
Assessment/Plan Nephrology Assessment: Metastatic rectal cancer, multi-organ failure. Agree with moves toward hospice. Family not ready yet. Pt now DNI. No role for dialysis as it would not prolong meaningful life. Cr up to 2.9. On IVF, not eating. prognosis grim. I will follow prn. call if we can be of assistance. Jorje Martinez MD Suggestion: . Subjective Subjective: Pt lethargic. now DNI but still on fluids. Agree with ICU continued discussion re hospice. Objective Vital Signs and I&Os Ill appearing F in ICU 110/58 97 83 Lungs occ rhonchi Cor RRR Abd soft Ext 3+edema Results Pertinent Lab Results: 141 / 105 / 56 / 3.9 / 18 / 2.9\
--- NOTE | 2017-11-04 15:42 | Event Note ---
Event Note Event Note: I spoke with patient's daughter Symone regarding code status, she wants to change her mother code status to DNR/DNI. Symone also has a meeting with hospice nurse Christie LEWIS from [place] [facility] today she expressed the same wishes to her.
[2017-11-04 16:00] VITALS: BP 126/60
[2017-11-05 00:03] VITALS: BP 112/42
[2017-11-05 04:57] LABS: ABSOLUTE BASOPHIL COUNT 0 /CUMM (0.0-0.2); ABSOLUTE EOSINOPHIL COUNT 0.1 /CUMM (0.0-0.7); ABSOLUTE GRANULOCYTE CT 7.4 /CUMM (1.4-6.5); ABSOLUTE LYMPH COUNT 0.9 /CUMM (1.2-3.4); ABSOLUTE MONOCYTE COUNT 0.4 /CUMM (0.10-0.60); BASOPHIL % 0.2 % (0.0-2.0); EOSINOPHIL % 0.9 % (0-5); GRANULOCYTE % 84.3 % (42.2-75.2); HEMATOCRIT 20.4 % (37-47); MEAN CORPUSCULAR HGB 25.2 PG (27.0-31.0); MEAN CORPUSCULAR HGB CONC 30.3 G/DL (33.0-37.0); MEAN CORPUSCULAR VOLUME 83.2 FL (81.0-99.0); MEAN PLATELET VOLUME 11.3 FL (7.4-10.4); PLATELET COUNT 81 /CUMM (130-400); RBC DISTRIBUTION WIDTH 28.2 % (11.5-14.5); RED BLOOD CELL CT 2.46 /CUMM (4.20-5.40); WHITE BLOOD CELL COUNT 8.7 /CUMM (4.8-10.8)
[2017-11-05 08:00] VITALS: BP 118/52
--- NOTE | 2017-11-05 09:15 | PN- Resident CRCU ---
Jose ALBARADO,[facility] 11/05/17 0915: Subjective HPI/CRCU Issues: Klebsiella UTI Borderline hypertension Anemia Thrombocytopenia/most likely hit Hypoglycemia Chronic hyponatremia Stage IV rectal cancer with liver and lung metastasis status post colectomy and colostomy Dysphagia GARIMA Ureteric stone MRSA bronchitis and possible aspiration pneumonia/ completed antibiotic course 24 Hour Events: Patient was evaluated by hospice nurse yesterday. Family was not ready for hospice and patient was currently DNR/DNI. Patient's family states that she can be fed on demand although they understand aspiration was. They do not want any pressors, transfusions, or anticoagulant. Early this evening the patients family decided on hospice. 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 Objective Vital Signs & I&O Last 8 Hrs of Vitals and I&O: Laboratory Tests 11/05/17 0349: Anion Gap 18 H, Estimated GFR 15 L, BUN/Creatinine Ratio 19.4, CBC w Diff NO MAN DIFF REQ, RBC 2.46 L, MCV 83.2, MCH 25.2 L, MCHC 30.3 L, RDW 28.2 H, MPV 11.3 H, Gran % 84.3 H, Lymphocytes % 10.5 L, Monocytes % 4.1, Eosinophils % 0.9, Basophils % 0.2, Absolute Granulocytes 7.4 H, Absolute Lymphocytes 0.9 L, Absolute Monocytes 0.4, Absolute Eosinophils 0.1, Absolute Basophils 0 Vital Signs Date Time Temp Pulse Resp B/P B/P Pulse O2 O2 Flow FiO2 Mean Ox Delivery Rate 11/05 0800 97 Nasal 3.0L Cannula Exam General Appearance: sedated, non verbal, jaundice, crackly breathing most likely due to secretions Respiratory: diffuse rhonchi and crackles Cardiovascular: regular rate/rhythm Gastrointestinal: normal bowel sounds, soft, non-tender Extremities: 2+ radial pulses Current Medications: Current Medications Sig/Rose Start time Last Medication Dose Route Stop Time Status Admin Albumin Human 25 GM Q8 10/24 1145 AC 11/05 IV 1357 Benzonatate 100 MG TID 10/09 2100 DC 10/28 PO 0804 Dextrose/Sodium 1,000 ML Q20H 11/04 1700 DC Chloride IV 11/05 1259 Furosemide 20 MG ONCE ONE 11/05 1345 DC 11/05 IV 11/05 1346 1357 Glycopyrrolate 200 MCG ONE ONE 11/05 0830 DC 11/05 IV 11/05 0831 0924 Glycopyrrolate 200 MCG ONE ONE 11/04 2200 DC 11/04 IV 11/04 2201 2205 Levothyroxine Sodium 12.5 MCG DAILY 10/29 0900 AC 11/05 IV 1000 Lorazepam 1 MG Q1 NEEDED PRN 11/05 1700 AC IV Lorazepam 0.5 MG Q4P PRN 11/02 2345 DC 11/05 IV 1357 Morphine Sulfate 2 MG Q2 HRS NEEDED PRN 11/05 1700 AC IV Morphine Sulfate 2 MG ONCE ONE 11/05 1245 DC 11/05 IV 11/05 1246 1246 Morphine Sulfate 2 MG Q4P PRN 11/01 1915 DC 11/05 IV 0924 Ondansetron HCl 4 MG Q8P PRN 10/06 1845 AC 10/23 IV 1139 Pantoprazole Sodium 40 MG DAILY 10/13 0900 AC 11/05 IV 0925 Polyethylene Glycol 17 GM DAILY PRN 10/08 1145 DC 10/10 PO 0856 Potassium Chloride 40 MEQ ONCE ONE 11/05 0930 CAN PO 11/05 0931 Scopolamine HBr 1 PAT Q72H 11/03 1915 AC 11/03 TOP 2141 Senna/Docusate Sodium 2 TAB DAILY PRN 10/11 0900 DC 10/15 PO 0951 Tamsulosin HCl 0.4 MG DAILY 10/26 0915 DC 10/30 PO 0930 Vitamin A/Vitamin D 1 BROWN BID 10/20 2100 AC 11/05 TOP 0925 Impression/Plan Impression/Problem List Impression: Impression: 1. MRSA bronchitis, Aspiration Pneumonia: * She was treated for MRSA bronchitis with vancomycin for 7 days. Currently off antibiotics. * She was on regular diet, against the speech therapists recs, as per the pts family's request. They understand the risks vs benefits. Pt refusing NG tube. Knowing the risks family still wishing to feed her when necessary on her wishes.Chest x ray s/o of consolidation w/ no white count, or fever. Watch off abx. If she has fever, or has s/o infection would culture again and consider starting abx. Avoid vancomycin. 2. Klebsiella UTI: * Completed a course of Ceftaz for 7 days 3. Borderline hypotension: BP today: 120-150/50s-80s Borderline blood pressure 90/50 at the time of admission. She received adequate hydration. Can continue her home medication at the time of discharge. Doesn't require any central line or vasopressor management. 4. Anemia likely ABLA: Guaiac positive stools, given history of rectal cancer and recent surgery. her H &H continue to drop, family doesn't want blood transfusion, today her H&H is 6.2 /20.4. -She has vaginal bleeding and also has vaginal ulcers likely secondary to radiation. She was evaluated by UTILITY PIPE [employer]ER who recommended surgical intervention when the patient medically stable, no intervention for now given her current clinical situation -Pt. has been refusing blood work for type and cross match too. - Family opted for no more blood transfusions. 5. 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 Her workup was negative however. She was restarted on enoxaparin and her platelets again declined. Hematology is recommending to avoid heparin at this time. Given renal insufficiency, new anticoagulants cannot be used in the treatment of DVT in her case. She should be started on warfarin at some point. If any procedures are planned, would start warfarin after the procedure. Given her use of argatroban, which also affects INR, her goal should be INR > 4, which will put her at a higher risk of bleeding. An acute drop in H&H could be attributed to vancomycin too, which is possible. Given her bleeding, Argatroban currentlyon hold. -No heparin or heparin products in future -Closer monitoring for any bleeding. -Monitor platelet count daily -Family opted for no more anticoagulation 6. Hypoglycemia: Resolved, we will monitor with Accu-Cheks. off from D10 drip 7. 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 She is status post diverting colostomy on 09/26/17 and was subsequently discharged to an extended care facility. She continues with pain presumably from the rectal mass. She has expressed her desire to move forward with palliative radiation therapy. She has received two treatments only 10/10/17. and 10/11/2017. No further radiation and systemic chemo, as per Hem Onc, given her worsening status. 8. Dysphagia: Patient reported difficulty swallowing, concerning for aspiration. Failed barium swallow. Knowing the risks family still wishing to feed her when necessary on her wishes. 9 . Acute renal failure This has been worsening kidney function, likely prerenal in her case due to increasing third spacing and decreased intravascular volume. Other potential causes are vancomycin use acute tubular necrosis. Random vancomycin level was 18.7 which is clearly elevated even after discontinuation of vancomycin more than 7 days only would indicate a possible etiology. Continue albumin for increasing intravascular volume. She also has Non anion gap metabolic acidosis which was tx'ed w/ D5W+HCO3. Discussed with nephrology regarding possible fluid overload however nephrology thinks that she continues to be intravascular we depleted and Lasix would not help. Repeat chest x-ray reveals no change in pulmonary airspace opacities. We'll give a trial of 20 mg IV Lasix as the patient's respiratory status has not improved with suction 10. ureteric stone Newly found incidental reading of 7mm ureteric stone, contributing to both hematuria, drop in H&H, and GARIMA. Flomax has been added to her regimen. 10. Radiation induced vaginitis- she was evaluated by ObGyn. No further recs. Requested an eval from the surgery. Await recs. Other medical problems: Hypothyroidism- Continue LT4 Hyperlipidemia -stopped Lipitor History of diabetes mellitus- Accu-Cheks. Held home meds given hypoglycemia Hypertension - held home medication quinalapril given hypotension at time of admission Coronary artery disease status post stents Goals of care/code status- DNI Ms Russo wished to be DNI only, with having CPR done to revive her. We explained to them clearly about DNR and DNI, but they wished to be DNI for now, and have the CPR done. We explained to them that it would be very ineffective resuscitative if there is not enough oxygenation, but the family wished to keep this status at this time; they will re-visit the code status if clnical status changes. Also discussed about the medications that are given for comfort measures, and they would like the team to use morphine and ativan as needed for now. They don' t wish to be given any more blood products or anticoagulants, and no pressors. They understand the risks. They also wished to have Ms Nguyễn being given diet, as per the familys discretion. Informed them of the risks of aspiration, and they understand. 11/04/2017: We planned a family meeting today with patient family, Miss. Garcia the hospice nurse. The family does not want to make the patient hospice at this time. Her CODE STATUS was changed to DNR/DNI. 11/05/2017 Family agreed to make the patient hospice. 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 Problem List: 1. Metastatic disease 2. Goals of care, counseling/discussion Pain Ratin Tomorrow's Labs & Rationales: icu bundle cbc Plan DVT/Prophylaxis: mechanical Code Status: Do Not Intubate Ervin ALBARADO,Laquita 11/05/17 1217: Attending MD Review Statement Attending Sign Off Attending Cosign Statement: I have: examined this patient, reviewed avalbl EMR data, personally reviewd images, discussd w/resident/PA/[employer], discussed mgmt plan w/nicolle, discussed mgmt plan w/pt, agreed w/resident/PA/[employer]CTION [employer], amended to note. Other Findings: Patient seen and examined, very lethargic. She is gurgling a lot. Vital Signs Date Time Temp Pulse Resp B/P B/P Pulse O2 O2 Flow FiO2 Mean Ox Delivery Rate 11/05 0003 97.1 92 14 112/42 98 Nasal 3.0L Cannula 11/05 0000 99 Nasal 3.0L Cannula 11/04 1600 96.6 98 22 126/60 98 Nasal 4.0L Cannula 11/04 1600 98 Nasal 4.0L Cannula on exam; lethargic. very gurgly. cv; s1,s2, rrr resp; crackles all over. abd: somewhat distended. ext; + edema Laboratory Tests 11/05 0349 Chemistry Sodium (137 - 145 mmol/L) 141 Potassium (3.5 - 5.1 mmol/L) 3.7 Chloride (98 - 107 mmol/L) 105 Carbon Dioxide (22 - 30 mmol/L) 17 L Anion Gap (5 - 16) 18 H BUN (7 - 17 mg/dL) 60 H Creatinine (0.5 - 1.0 mg/dL) 3.1 H Estimated GFR (>60 ml/min) 15 L BUN/Creatinine Ratio (7 - 25 %) 19.4 Hematology CBC w Diff NO MAN DIFF REQ WBC (4.8 - 10.8 /CUMM) 8.7 RBC (4.20 - 5.40 /CUMM) 2.46 L Hgb (12.0 - 16.0 G/DL) 6.2 *L Hct (37 - 47 %) 20.4 L MCV (81.0 - 99.0 FL) 83.2 MCH (27.0 - 31.0 PG) 25.2 L MCHC (33.0 - 37.0 G/DL) 30.3 L RDW (11.5 - 14.5 %) 28.2 H Plt Count (130 - 400 /CUMM) 81 L MPV (7.4 - 10.4 FL) 11.3 H Gran % (42.2 - 75.2 %) 84.3 H Lymphocytes % (20.5 - 51.1 %) 10.5 L Monocytes % (1.7 - 9.3 %) 4.1 Eosinophils % (0 - 5 %) 0.9 Basophils % (0.0 - 2.0 %) 0.2 Absolute Granulocytes (1.4 - 6.5 /CUMM) 7.4 H Absolute Lymphocytes (1.2 - 3.4 /CUMM) 0.9 L Absolute Monocytes (0.10 - 0.60 /CUMM) 0.4 Absolute Eosinophils (0.0 - 0.7 /CUMM) 0.1 Absolute Basophils (0.0 - 0.2 /CUMM) 0 A/P; 77 y/o F with pmh sig for 6-year-old woman with PMHx of stage IV rectal cancer with metastases to lung and liver status post diverting colostomy ([address] Montoya), coronary artery disease status post stents, type 2 diabetes, hypothyroidism hyperlipidemia, hypertension who was brought to the hospital after she was found to have severe back pain and altered mental status and hypoglycemia. 12 the hospital course patient has been treated for the following. MRSA bronchitis with likely has patient ammonia, UTI, acute blood loss anemia, stage IV rectal cancer with metastases to lung and liver status post diverging colostomy. Patient also had dysphagia and now having multiorgan failure including acute renal failure, severe anemia as well as colopathy. Over the course of her hospital stay multiple discussions have been made between that primary team as well as patient's family. Patient was made DNR/DNI yesterday. Hospice was consulted with patient's family did not want hospice yet. Patient continues to do poor. She is on comfort medications. She is very gurgly and likely will need to be suctioned. Repeated her chest x-ray to see if there is any evidence of fluid overload but it does not show any evidence of fluid overload. Nephrology recommends against the Lasix. Continue comfort medications. Family discussions need to be made again for after hospice
--- NOTE | 2017-11-05 10:11 | RADIOLOGY REPORT ---
EXAMINATION: XR PORTABLE CHEST CLINICAL INFORMATION: Crackles. Fluid overload? COMPARISON: CXR from 10/11/2017, 10/28/2017 and 10/29/[address] from 10/25/2017 TECHNIQUE: Portable frontal view of the chest was obtained. FINDINGS: Lungs are suboptimally evaluated due to hypoinflation. Again noted are bilateral pulmonary nodules. The right perihilar consolidation with air bronchograms has improved compared to 10/28/2017. There might be airspace opacity in the retrocardiac region of the left lower lobe, as well. Overall, pulmonary disease is unchanged compared to 10/29/2017. No Jon B lines. Small bilateral pleural effusions were present on 10/25/2017; however, these are not well seen and/or have resolved. Cardiac silhouette is normal in size. The visualized bones are intact. IMPRESSION: 1. Multiple bilateral pulmonary nodules. 2. Lungs are poorly evaluated due to the degree of hypoinflation. 3. Pulmonary airspace opacities are not appreciably changed compared to 10/29/2017.
[2017-11-05 16:21] VITALS: BP 100/50
--- NOTE | 2017-11-05 20:22 | Event Note ---
Event Note Event Note: Situation: I was called by nursing staff with concerns of patient's unresponsiveness. She had vomited once while the nursing staff was trying to turn her, and became unresponsive. Background: 77-year-old female with pmh of 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 Montoya), coronary artery disease status post stents, type 2 diabetes, hypothyroidism hyperlipidemia, hypertension who was brought to the hospital after she was found to have severe back pain and altered mental status and found to have had hypoglycemia upto 22 mg/dl at the time of presentation, who has had a complicated course of stay in the hospital with MRSA pneumonia with aspitarion, Kleibsella UTI, anemia, thrombocytopenia possibly RENE, dysphagia, GARIMA who was made comfort measures only after Hospice consultation earlier today is now found unresponsive by the nursing staff. Assessment/Recs: I examined the patient together with my manager internet [employer] sales, and presence of nursing staff. The patient did not have any pulse, including carotid pulse, spontaneous breathing, pupillary response to light, corneal reflex, and deep tendon reflex. No heart sound was heard upon auscultation. The patient holds comfort measures only code status. The patient was declared at 2002 hrs. * Family notified about the event, and questions answered. * certificate prepared/signed. * Attending notified.
== END 2017-11-05 23:57 | disposition expired | DRG 637 ==
LOC: ERH 12:32 → CRI 16:46 → ERHI 16:46 → ENRESERV 19:09 → ENTRNSPT 20:05 → EDTRNSPTSTS 20:24 → EDTRNSPT 20:24 → 2NA 20:46 → EDTRNSPT 20:51 → CMPTRNSPT 20:51 → CRI 22:32 → ENTRNSPT 10-15 15:57 → EDTRNSPTSTS 10-15 16:15 → EDTRNSPT 10-15 16:15 → 2NA 10-15 16:55 → CMPTRNSPT 10-15 16:59 → 2NA 10-16 08:46 → CRI 10-17 13:25
PROVIDERS: Hospitalist; Internal Medicine; Internal Medicine Critical Care Medicine; Internal Medicine Endocrinology, Diabetes & Metabolism; Internal Medicine Hematology & Oncology; Physician Assistant Medical; Preventive Medicine Public Health & General Preventive Medicine; Student in an Organized Health Care Education/Training Program
PROC: 30233N1 Transfusion of Nonautologous Red Blood Cells into Peripheral Vein, Percutaneous Approach (ICD-10-PCS; principal; 2017-10-25)
DX: E11.649 Type 2 diabetes mellitus with hypoglycemia without coma (principal); G93.41 Metabolic encephalopathy; A41.02 Sepsis due to Methicillin resistant Staphylococcus aureus; J69.0 Pneumonitis due to inhalation of food and vomit; J15.212 Pneumonia due to Methicillin resistant Staphylococcus aureus; N17.9 Acute kidney failure, unspecified; I82.621 Acute embolism and thrombosis of deep veins of right upper extremity; E87.0 Hyperosmolality and hypernatremia; R13.10 Dysphagia, unspecified; C78.01 Secondary malignant neoplasm of right lung; C78.7 Secondary malignant neoplasm of liver and intrahepatic bile duct; C78.02 Secondary malignant neoplasm of left lung; R18.8 Other ascites; E87.2 Acidosis; C20 Malignant neoplasm of rectum; E87.1 Hypo-osmolality and hyponatremia; N39.0 Urinary tract infection, site not specified; N13.2 Hydronephrosis with renal and ureteral calculous obstruction; Z68.41 Body mass index [BMI] 40.0-44.9, adult; D62 Acute posthemorrhagic anemia; B96.1 Klebsiella pneumoniae [K. pneumoniae] as the cause of diseases classified elsewhere; D63.8 Anemia in other chronic diseases classified elsewhere; D75.82 Heparin induced thrombocytopenia (HIT); D50.9 Iron deficiency anemia, unspecified; Z66 Do not resuscitate; E03.9 Hypothyroidism, unspecified; Z93.3 Colostomy status; I25.10 Atherosclerotic heart disease of native coronary artery without angina pectoris; Z95.5 Presence of coronary angioplasty implant and graft; E66.9 Obesity, unspecified; E78.5 Hyperlipidemia, unspecified; I10 Essential (primary) hypertension; M54.9 Dorsalgia, unspecified; T38.3X5A Adverse effect of insulin and oral hypoglycemic [antidiabetic] drugs, initial encounter; T36.8X5A Adverse effect of other systemic antibiotics, initial encounter; Z79.4 Long term (current) use of insulin; T45.515A Adverse effect of anticoagulants, initial encounter; N76.0 Acute vaginitis; N93.9 Abnormal uterine and vaginal bleeding, unspecified; Y84.2 Radiological procedure and radiotherapy as the cause of abnormal reaction of the patient, or of later complication, without mention of misadventure at the time of the procedure; Z91.013 Allergy to seafood; Z87.891 Personal history of nicotine dependence; Z80.0 Family history of malignant neoplasm of digestive organs
CPT/HCPCS: 2NAP; 72149; 86022; 87184; CCU; 36415; 36592; 71045; 72158; 74176; 74177; 74230; 76775; 77280-TC; 77412-TC; 80307; 81001; 82436; 82570; 83010; 83525; 86920; 87040; 87070; 87086; 87147; 93005; 93010; 93306; 93970; 96374; 96375; 96376; 97161-GP; A9579; J0131; J0456; J0696; J0713; J1610; J1644; J1650; J1885; J1940; J2060; J2270; J2354; J2405; J3370; J7040; J7042; J7060; P9016; P9047; S5012